=== PATIENT | male | born 1965 | race Caucasian/White ===

== ENCOUNTER → 2017-10-14 14:48 | Outpatient (CLI) | payer OTHER, SELFPAY ==
[2017-10-14 16:20] LABS: Absolute Lymphocyte Count 1.71 X10^3/ul (0.83-4.51); Absolute Neutrophil Count 3.5 X10^3/uL (2.0-7.7); Basophil# 0.03 X10^3/uL; Basophil% 0.5 % (0-1); Eosinophil# 0.17 X10^3/uL; Eosinophils% 2.7 % (0-5); Hematocrit 44.9 % (40-54); Hemoglobin 15.1 g/dl (13.0-16.5); Lymphocyte # 1.71 X10^3/ul (4.0); Lymphocyte % 27.2 % (19-41); Mean Corp Hgb Conc 33.6 g/gl (32-36); Mean Corpuscular Hgb 29.7 pg (27.0-32.0); Mean Corpuscular Volume 88.2 fL (80-94); Mean Platelet Vol. 9.8 fl (6.2-12.0); Monocyte# 0.83 X10^3/uL; Monocyte% 13.2 % (0-10); Neutrophil # 3.54 X10^3/uL (2.7-7.7); Neutrophil % 56.2 % (47-70); Platelet Count 320 K/mm3 (150-450); RBC Distribution Width CV 13.6 % (11.6-14.6); Red Blood Count 5.09 M/mm3 (4.6-6.2); White Blood Count 6.3 K/mm3 (4.4-11.0)
[2017-10-14 16:23] LABS: POSITIVE COUNT NO; POSITIVE DIFFERENTIAL NO; POSITIVE MORPHOLOGY NO
[2017-10-14 16:39] LABS: AST(SGOT) 21 U/L (15-37); Alanine Aminotransfer ALT/SGPT 26 U/L (16-61); Albumin, Serum 3.8 g/dL (3.2-5.0); Alkaline Phosphatase 98 U/L (45-117); Bilirubin, Direct 0.09 mg/dL (0.00-0.30); CRP < 2.90 mg/L (0.0-3.0); Creatinine, Serum 0.96 mg/dL (0.70-1.30); EST Glomerular Filtration Rate 87 mL/min (>60); Est Glom Filt Rate - Afr Amer 105 mL/min (>60); Globulin 3.3 g/dL (2.2-4.2); Protein, Total 7.1 g/dL (6.4-8.2)
[2017-10-14 16:54] LABS: Erythrocyte Sedimentation Rate 1 mm/hr (0-20)
== END ==
PROVIDERS: Family Provider Family Medicine; PCP Family Medicine; Visit Provider Internal Medicine Rheumatology
DX: L40.50 Arthropathic psoriasis, unspecified (principal); Z79.899 Other long term (current) drug therapy
CPT/HCPCS: 36415; 80076; 82565; 85025; 85652; 86140

== ENCOUNTER → 2017-10-28 13:16 | Outpatient (CLI) | payer OTHER, SELFPAY ==
--- NOTE | 2017-10-28 13:21 | RAD_ITS ---
STUDY: X-RAY - LEFT KNEE REASON FOR EXAM: Male, 52 years old. One year postop follow-up. Medial knee pain. TECHNIQUE: 4 view(s) of the knee. COMPARISON: 4 views of the left knee August 19, 2017. FINDINGS: Changes of medial knee hemiarthroplasty again noted. Metal prostheses overlying the medial femoral condyle and medial tibial plateau remain well seated, and in anatomic alignment. There is persistent spurring of the tibial spines. Normal visualized proximal fibula. Periarticular spurring at the base and lateral margin of the patella is unchanged. There is no demonstrated destructive osseous lesion or fracture. Normal medial femorotibial distance. Normal lateral femorotibial joint space. Stable mild narrowing of the lateral patellofemoral joint space. A few punctate calcific densities again project within the central femorotibial joint compartments on the condylar notch view. Normal visualized proximal tibiofibular articulation. There is a stable soft tissue prominence in the suprapatellar region suggesting a small volume joint effusion. The soft tissue structures are unremarkable. RAD/Knee 4 or More Views IMPRESSION: Stable x-ray examination of the knee, status post medial hemiarthroplasty. Electronically Signed: Emmanuel Peres MD at 11:25 EST , Service support ,
== END ==
PROVIDERS: Family Provider Family Medicine; PCP Family Medicine; Visit Provider Orthopaedic Surgery
DX: M17.12 Unilateral primary osteoarthritis, left knee (principal)
CPT/HCPCS: 73564

== ENCOUNTER 2017-11-21 14:00 | Outpatient (RCR) | payer OTHER, SELFPAY ==
--- NOTE | 2017-11-07 16:36 | HP.PTEVAL_ITS ---
Patient's Visit Information SIMONE BARLOW is a 52 year old M referred to Physical Therapy by DO ANABELLE Pinto with a diagnosis of Left Pes Anserine. Date of Evaluation: 11/07/17 Physical Therapist: Megan Johnson - Visit Plan Frequency: 2x /Week Duration: 2 Weeks Plan: Focus on eccentric strength- DN as modality of choice - Subjective Subjective: Patient reports that he has pain on the top of the knee sometimes but the main problem is on the medial side of the knee. Sharp pain and has to stop and can't bend his knee. If he walks a little and starts to try to bend it - it will work its way out. Walking down stairs or a ramp is the worst. It does it a couple of times day- but is random when it happens. Went and saw Dr. Maloney who did x-rays which still looked good- may need a bone scan if it doesn't get any better. Pain does radiate down almost of the ankle and up into the hip. This started around June- feels like it got worse then made an apt and it went away for a few weeks then it started again. Did not give him a cortisone injection. Sleep: wakes him up. When he goes to stretch his leg out while driving it stiffens up. Does have some swelling but its going down. Eases: walk it out. best: 09/14 Worst: 06/14. 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 Does have an ellip and leg press which helps. 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 - Objective Posture: good throughout. Gait: no deviation noted. Stairs: asc no Hr good technique- desc- no hr-poor control. SLS: 30 sec with increased sway. HR/TR: WNL. ROM: 0-125 degrees. Strength: Ankle: 5/5, Knee: 5/5, Hip: 5/5 Eccentric lowering poor control and increased knee sway. - Goals Goal 1:: Patient will be I with HEP and progression Goal Time Frame: 4-6 Weeks Goal 2:: Patient will demo a good eccentric single leg squat with 0/10 pain Goal Time Frame: 4-6 Weeks Goal 3:: Patient will report 0/10 pain for 1 week Goal Time Frame: 4-6 Weeks - Rehabilitation Potential Physical Therapy Diagnosis: Patient presents with hypmobility- he has decreased eccentric strength and pain Rehabilitation Potential: Good - Anticipated Interventions Patient/Client Instruction: Educate patient on: Benefits of Fitness Program For the Purpose of:: To increase tolerance to activity/condition/position Therapeutic Exercise to Include: Strength training, Balance training, Agility training, Body mechanics, Postural training, Flexibilty training, Gait and locomotor training Comment: Eccentric Strength For the Purpose of:: To improve muscle performance and motor function Manual Therapy Techniques to Include: Mobilization, Functional dry needling, Soft tissue mobilization For the Purpose of:: To improve nutrient delivery to tissue, To increase oxygenation perfusion Thank you for the opportunity to evaluate your patient. For Medicare and Medicare HMO plans, please review the plan of care and approve it. It will need to be FAXED BACK to us at [phone] for Medicare purposes. Please let me know if there are questions or concerns regarding this plan of care. Physician Signature: Date:
--- NOTE | 2017-11-21 14:29 | HP.PTREVAL_ITS ---
Nolberto Maloney DO, It has been my pleasure to treat SIMONE BARLOW over the last 4 visits for Left Pes Anserine. Please see the progress note below for an update on the physical therapy plan of care! Subjective: Pt. reports symptoms continue to improve. Pt. reports having increased lateral knee pain from kneeling a lot at work. Objective/Function: Pt. is progressing with controlled eccentric motion, but continues to have increased pain with increased flexion during loaded positions. Pt. has improvement with DN. Re assessment next visit. Plan Plan: Focus on eccentric strength- DN as modality of choice Goals Goal 1:: Patient will be I with HEP and progression Goal Time Frame: 4-6 Weeks Goal 2:: Patient will demo a good eccentric single leg squat with 0/10 pain Goal Time Frame: 4-6 Weeks Goal Progress: Progressing Goal 3:: Patient will report 0/10 pain for 1 week Goal Time Frame: 4-6 Weeks Anticipated Interventions Patient/Client Instruction: Educate patient on: Benefits of Fitness Program For the Purpose of:: To increase tolerance to activity/condition/position Therapeutic Exercise to Include: Strength training, Balance training, Agility training, Body mechanics, Postural training, Flexibilty training, Gait and locomotor training Comment: Eccentric Strength For the Purpose of:: To improve muscle performance and motor function Manual Therapy Techniques to Include: Mobilization, Functional dry needling, Soft tissue mobilization For the Purpose of:: To improve nutrient delivery to tissue, To increase oxygenation perfusion Please do not hesitate to contact me at [phone] by phone or Fax: if you have questions or concerns regarding this new plan of care! Sincerely, Megan Johnson
--- NOTE | 2018-01-23 13:54 | HP.PT.NRP ---
HP - Discharge Summary (1) - Patient Information SIMONE BARLOW was seen in my office for initial evaluation on 11/07/17. The following Plan of Care was established for this patient: Initial Frequency: 2x /Week Initial Duration: 2 Weeks - Anticipated Interventions Patient/Client Instruction: Educate patient on: Benefits of Fitness Program For the Purpose of:: To increase tolerance to activity/condition/position Therapeutic Exercise to Include: Strength training, Balance training, Agility training, Body mechanics, Postural training, Flexibilty training, Gait and locomotor training For the Purpose of:: To improve muscle performance and motor function Manual Therapy Techniques to Include: Mobilization, Functional dry needling, Soft tissue mobilization For the Purpose of:: To improve nutrient delivery to tissue, To increase oxygenation perfusion This patient was last seen in our office . Pertinent comments regarding their Physical therapy will appear below: Patient has not returned for 60 days and is appropriate for discharge. Return to MD for further evaluation as needed. At this point I will be discontinuing this patient from physical therapy. I would be happy to see this patient again in the future if found appropriate by the physician. Thank you! Megan Johnson
== END 2017-11-21 19:00 | disposition home or self-care (01) ==
LOC: PT 14:00
PROVIDERS: Family Provider Family Medicine; PCP Family Medicine; Visit Provider Orthopaedic Surgery
DX: M70.52 Other bursitis of knee, left knee (principal); M70.51 Other bursitis of knee, right knee
CPT/HCPCS: 97110; 97161

== ENCOUNTER → 2017-12-29 21:57 | Outpatient (CLI) | payer OTHER, SELFPAY | PROVIDERS: Family Provider Family Medicine; PCP Family Medicine; Visit Provider Family Medicine | DX: G47.33 Obstructive sleep apnea (adult) (pediatric) (principal) | CPT/HCPCS: 95810 ==

== ENCOUNTER → 2018-01-19 16:07 | Outpatient (CLI) | payer OTHER, SELFPAY ==
[2018-01-19 17:35] LABS: Hematocrit 46.1 % (40-54); Hemoglobin 15.5 g/dl (13.0-16.5); Mean Corp Hgb Conc 33.6 g/gl (32-36); Mean Corpuscular Hgb 29.4 pg (27.0-32.0); Mean Corpuscular Volume 87.3 fL (80-94); Mean Platelet Vol. 9.5 fl (6.2-12.0); Platelet Count 338 K/mm3 (150-450); RBC Distribution Width CV 13.2 % (11.6-14.6); RBC Distribution Width SD 41.9 fl (35.1-43.9); Red Blood Count 5.28 M/mm3 (4.6-6.2); White Blood Count 6.4 K/mm3 (4.4-11.0)
[2018-01-19 17:36] LABS: Absolute Lymphocyte Count 2.06 X10^3/ul (0.83-4.51); Absolute Neutrophil Count 3.6 X10^3/uL (2.0-7.7); Basophil# 0.01 X10^3/uL; Basophil% 0.2 % (0-1); Eosinophil# 0.12 X10^3/uL; Lymphocyte # 2.06 X10^3/ul (4.0); Lymphocyte % 32.1 % (19-41); Monocyte# 0.66 X10^3/uL; Monocyte% 10.3 % (0-10); Neutrophil # 3.56 X10^3/uL (2.7-7.7); Neutrophil % 55.3 % (47-70); POSITIVE COUNT NO; POSITIVE DIFFERENTIAL NO; POSITIVE MORPHOLOGY NO
[2018-01-19 17:47] LABS: Erythrocyte Sedimentation Rate 7 mm/hr (0-20)
[2018-01-19 18:47] LABS: CRP < 2.90 mg/L (0.0-3.0)
== END ==
PROVIDERS: Family Provider Family Medicine; PCP Family Medicine; Visit Provider Physician Assistant
DX: Z96.652 Presence of left artificial knee joint (principal)
CPT/HCPCS: 36415; 85025; 85652; 86140

== ENCOUNTER → 2018-03-01 20:00 | Outpatient (CLI) | payer OTHER, SELFPAY | PROVIDERS: Family Provider Family Medicine; PCP Family Medicine; Visit Provider Nurse Practitioner Acute Care | DX: G47.33 Obstructive sleep apnea (adult) (pediatric) (principal) | CPT/HCPCS: 95811 ==

== ENCOUNTER → 2018-03-13 16:12 | Outpatient (CLI) | payer OTHER, SELFPAY ==
[2018-03-13 18:03] LABS: Anion Gap 9 (5-15); BUN 17 mg/dL (7-18); BUN/Creat Ratio 16.3 RATIO (10-20); Calcium,Total 8.8 mg/dL (8.5-10.1); Chloride 104 mmol/L (98-107); Cholesterol 190 mg/dL (200); Creatinine, Serum 1.04 mg/dL (0.70-1.30); EST Glomerular Filtration Rate 79 mL/min (>60); Est Glom Filt Rate - Afr Amer 96 mL/min (>60); Glucose 94 mg/dL (74-106); High Density Lipoprotein 48 mg/dL; PSA,Total - Annual Screen 1.45 ng/mL (0.00-4.00); Potassium 4.3 mmol/L (3.5-5.1); Sodium Level 143 mmol/L (136-145); Thyroid Stim Hormone (TSH) 1.03 uIU/mL (0.358-3.74); Triglycerides 59 mg/dL; Very Low Density Lipoprotein 12 mg/dL (5-40)
[2018-03-13 18:06] LABS: Vitamin D,25 Hydroxy 27.9 ng/mL (29.95-100.01)
== END ==
PROVIDERS: Visit Provider Family Medicine
DX: Z02.9 Encounter for administrative examinations, unspecified (principal); E03.9 Hypothyroidism, unspecified
CPT/HCPCS: 36415; 80048; 80061; 82306; 84153; 84443; G0103

== ENCOUNTER 2018-03-15 07:14 | Day surgery (SDC) | payer OTHER, SELFPAY ==
[2018-03-15] VITALS (7 sets, daily range): BP systolic 93–108; BP diastolic 62–80; PULSE 67–93; RESP 16–18; TEMP 35.9–36.4; O2SAT 96–100; BMI 26.7
--- NOTE | 2018-03-15 | COLBX_PTH ---
PATIENT: SIMONE BARLOW LOC: EN U#:[id number] AGE/SX: 52/M ROOM: RE03/15/[address]: Dr. Clarice Gibbs MD : [id number] BED: DIS: 03/15/2018 SPEC #: [id number] RECD: 03/15/18 13:54 STATUS: KIARA CLAIRE #: [id number] TIA: 03/15/18 00:[address]: Clarice Gibbs DEPT: SURGICAL PATHOLOGY RECD BY: Yong Lyons ENTERED: 03/15/18 13:54 SP TYPE: COLON BX OTHR DR: Dr. Ash Mcpherson MD Tissues: A - Transverse colon B - Descending colon Procedures: Surgery Specimen Level IV HEADER OPERATION: Colonoscopy (MAC) PRE-OP DIAGNOSIS: Screening, family history colon cancer TISSUE SUBMITTED: A ? Biopsy polyp transverse colon, B ? Biopsy polyp descending colon MICROSCOPIC DIAGNOSIS A. Polyp transverse colon, biopsy: Fragments of hyperplastic polyp. B. Polyp descending colon, biopsy: Fragment of colonic mucosa, no pathologic diagnosis. ECHO:charisma 03/16/18 MICROSCOPIC DESCRIPTION Slides are reviewed. GROSS DESCRIPTION A - Received in fixative is one container labeled with the patient's name and designated transverse colon polyp biopsy. The specimen consists of multiple irregular fragments of light romano soft tissue that in aggregate measure 0.8 x 0.3 x 0.1 cm. The specimen is totally submitted in one cassette. B - Received in fixative is one container labeled with the patient's name and designated descending colon polyp biopsy. The specimen consists of one irregular fragment of light romano soft tissue that measures 0.3 x 0.3 x 0.1 cm. The specimen is totally submitted in one cassette. / ECHO:charisma 03/15/18 TC:1 CPT: 07784 x2
--- NOTE | 2018-03-15 11:03 | OP.PCM_ITS ---
Report of Operation Date of Procedure: 03/15/18 Pre-Operative Diagnosis: Family history of colon cancer-father, screening for colon cancer Post-Operative Diagnosis: Small sessile transverse and descending colon polyps, internal hemorrhoids?grade 1 Surgery/Procedure Performed:: Colonoscopy with biopsy Type of Anesthesia:: MAC Anesthesiologist: Elin Zheng Specimen's removed: 1. Transverse colon polyp, 2. Descending colon polyp Estimated Blood Loss (mL): Minimal Description of Procedure: Procedure: Colonoscopy After reviewing the risks benefits, the patient was deemed in satisfactory condition to undergo procedure. After obtaining informed consent, the scope was passed under direct visualization. Throughout the procedure, the patient's blood pressure pulse and position saturations were monitored continuously anesthesia. The colonoscope was introduced through the anus and advanced to the cecum, identified by the appendiceal orifice, IC valve and transillumination. The colonoscopy was performed without difficulty. The patient tolerated procedure well. Quality of bowel prep was good. Findings: The perianal and digital rectal exam revealed internal hemorrhoids. Small sessile transverse colon and descending colon polyps were removed with cold forceps biopsies. Otherwise the colon (entire examined portion) appeared normal. Retroflexed view of the distal rectum and anal verge showed internal hemorrhoids grade 1 Impression: 1. Small sessile transverse colon and descending colon polyps. Removed completely and sent to pathology 2. Internal hemorrhoid-grade 1 Recommendations: Await biopsies Repeat colonoscopy in 3-5 years for screening purposes depending on biopsy results and due to new family history of colon cancer in his father - Complications none
== END 2018-03-15 10:33 | disposition home or self-care (01) ==
LOC: EN 07:15 → AC 07:16
PROVIDERS: Family Provider Family Medicine; PCP Family Medicine; Visit Provider Surgery
PROC: 0DJD8ZZ Inspection of Lower Intestinal Tract, Via Natural or Artificial Opening Endoscopic (ICD-10-PCS; CPT 45378; principal; 2018-03-15 09:25)
DX: Z12.11 Encounter for screening for malignant neoplasm of colon (principal); Z80.0 Family history of malignant neoplasm of digestive organs; K64.8 Other hemorrhoids; K63.5 Polyp of colon; L40.50 Arthropathic psoriasis, unspecified; E03.9 Hypothyroidism, unspecified; F32.9 Major depressive disorder, single episode, unspecified; F41.9 Anxiety disorder, unspecified
CPT/HCPCS: 45380; 88305; J7120

== ENCOUNTER 2018-05-16 14:24 | Emergency (ER) | payer OTHER, SELFPAY ==
[2018-05-16 14:26] VITALS: BP 135/74; PULSE 135; RESP 16; TEMP 37.2; O2SAT 98; BMI 28.3
--- NOTE | 2018-05-16 14:33 | RAD_ITS ---
STUDY: X-RAY - RIGHT HAND REASON FOR EXAM: Male, 53 years old. Pain. No history of trauma. TECHNIQUE: 3 view(s) of the hand. COMPARISON: None. FINDINGS: There is joint space narrowing of the radiocarpal articulation consistent with degenerative arthrosis. Degenerative arthrosis of the distal radial ulnar joint. Normal visualized carpal bones. Normal carpal articulations Normal carpometacarpal articulation of the thumb. Normal second through fifth carpometacarpal joints. Normal metacarpi. Normal metacarpophalangeal joint of the thumb. Normal interphalangeal joint of the thumb. Normal proximal and distal phalanges of the thumb. Normal metacarpophalangeal joints of the second through fifth fingers. Normal proximal and distal interphalangeal joints of the second through fifth fingers. 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 The soft tissue structures are unremarkable. 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 Degenerative changes as described. Electronically Signed: Justin Barreto MD at 15:16 EDT Tel [phone], Service support ,
[2018-05-16 16:12] VITALS: BP 130/97; PULSE 80; RESP 16; O2SAT 98
--- NOTE | 2018-05-16 16:28 | ED.DCSUM_ITS ---
- ER Visit Summary Date of Service: 05/16/18 Chief Complaint: Right wrist pain History of Present Illness: The patient is a 53 M who noted right wrist pain starting last evening. Pain worsened today at work with repetitive motion. He is right-hand dominant. He denies paresthesias. Patient has a history of psoriatic arthritis and thought that might be flaring. He is currently on Humira. He does not have a history of gout. There is been no known injury. Physical Examination: Vital signs in triage significant for heart rate of 135. Patient sitting upright in bed no acute distress. Head neck examination unremarkable. Heart is regular. Lung sounds are clear. Right upper extremity examination reveals mild diffuse tenderness throughout the right wrist. There is no erythema or significant edema. He has normal cap refill and sensation. He does have increased pain with flexion and extension. Test Results: Right hand x-rays were obtained per nursing protocol. He is status post amputation of the fourth middle and distal phalanges from prior injury. Degenerative changes are noted. Emergency Department Course and Treatment: This time I believe the patient either has a sprain versus tendinitis. He will be treated with a Velcro wrist splint and given a course of prednisone. He is to return for worsening symptoms , erythema, increased edema etc. He will follow with his primary care physician. Treatment Plan: [] Disposition: Discharge Impression: Right wrist sprain This note was generated with [employer] dictation software. It may contain incorrect words, spelling, and punctuation that were not noted in review of the chart prior to signing ED Disposition - Plan for ED Patient: Chief Complaint: Upper Extremity Injury Referrals: Ash Mcpherson MD [Primary Care Provider] -
--- NOTE | 2018-05-16 16:28 | ED.DEP ---
ED Disposition - Plan for ED Patient: Disposition: Home or Assisted Living Chief Complaint: Upper Extremity Injury Instructions: ED Sprain Wrist Prescriptions: Prednisone 10 mg PO UD #33 tablet Referrals: Ash Mcpherson MD [Primary Care Provider] - 5-7 Days
[2018-05-16] MEDS: predniSONE 20 MG Tablet 60 MG PO (16:52)
== END 2018-05-16 16:56 | disposition home or self-care (01) ==
PROVIDERS: Emergency Provider Emergency Medicine; Family Provider Family Medicine; PCP Family Medicine
DX: S63.501A Unspecified sprain of right wrist, initial encounter (principal); X50.3XXA Overexertion from repetitive movements, initial encounter; Y93.9 Activity, unspecified; Y92.89 Other specified places as the place of occurrence of the external cause; Y99.0 Civilian activity done for income or pay; L40.50 Arthropathic psoriasis, unspecified; G47.33 Obstructive sleep apnea (adult) (pediatric); K21.9 Gastro-esophageal reflux disease without esophagitis
CPT/HCPCS: 73130; 99283

== ENCOUNTER → 2018-05-18 13:55 | Outpatient (CLI) | payer OTHER, SELFPAY ==
[2018-05-24 11:25] LABS: Cotinine Screen Blood None Detected (.); Nicotine Blood None Detected (.)
== END ==
PROVIDERS: Family Provider Family Medicine; PCP Family Medicine; Visit Provider Family Medicine
DX: Z01.89 Encounter for other specified special examinations (principal)
CPT/HCPCS: 36415; 80323

== ENCOUNTER → 2019-01-12 16:52 | Outpatient (CLI) | payer OTHER, SELFPAY ==
[2018-08-07 14:17] VITALS: BMI 27.2
[2019-01-12 17:27] LABS: Absolute Lymphocyte Count 2.21 X10^3/ul (0.83-4.51); Basophil# 0.03 X10^3/uL; Basophil% 0.5 % (0-1); Eosinophil# 0.15 X10^3/uL; Eosinophils% 2.5 % (0-5); Hematocrit 44.2 % (40-54); Hemoglobin 14.9 g/dl (13.0-16.5); Lymphocyte # 2.21 X10^3/ul (4.0); Lymphocyte % 36.6 % (19-41); Mean Corp Hgb Conc 33.7 g/gl (32-36); Mean Corpuscular Hgb 29.7 pg (27.0-32.0); Mean Corpuscular Volume 88.2 fL (80-94); Mean Platelet Vol. 9.1 fl (6.2-12.0); Monocyte# 0.69 X10^3/uL; Monocyte% 11.4 % (0-10); Neutrophil # 2.95 X10^3/uL (2.7-7.7); Neutrophil % 48.8 % (47-70); Platelet Count 296 K/mm3 (150-450); RBC Distribution Width CV 13.3 % (11.6-14.6); RBC Distribution Width SD 42.7 fl (35.1-43.9); Red Blood Count 5.01 M/mm3 (4.6-6.2)
[2019-01-12 17:29] LABS: POSITIVE COUNT NO; POSITIVE DIFFERENTIAL NO; POSITIVE MORPHOLOGY NO
[2019-01-12 18:24] LABS: Vitamin D,25 Hydroxy 28.6 ng/mL (29.95-100.01)
[2019-01-12 18:28] LABS: Anion Gap 7 (5-15); BUN 15 mg/dL (7-18); BUN/Creat Ratio 16.3 RATIO (10-20); Calcium,Total 8.7 mg/dL (8.5-10.1); Chloride 107 mmol/L (98-107); Creatinine, Serum 0.92 mg/dL (0.70-1.30); EST Glomerular Filtration Rate 91 mL/min (>60); Est Glom Filt Rate - Afr Amer 110 mL/min (>60); Free T3 2.8 pg/mL (2.18-3.98); Glucose 87 mg/dL (74-106); Potassium 3.8 mmol/L (3.5-5.1); Sodium Level 142 mmol/L (136-145); T4 Total, Thyroxin 8.7 ug/dL (4.5-12.1); Thyroid Stim Hormone (TSH) 1.75 uIU/mL (0.358-3.74)
== END ==
PROVIDERS: Family Provider Family Medicine; PCP Family Medicine; Referring Provider Family Medicine; Visit Provider Family Medicine
DX: E03.9 Hypothyroidism, unspecified (principal); E55.9 Vitamin D deficiency, unspecified; L40.50 Arthropathic psoriasis, unspecified
CPT/HCPCS: 36415; 80048; 82306; 84436; 84443; 84481; 85025

== ENCOUNTER → 2019-02-14 10:47 | Outpatient (CLI) | payer OTHER, SELFPAY ==
[2018-08-07 14:17] VITALS: BMI 27.2
== END ==
PROVIDERS: Family Provider Family Medicine; PCP Family Medicine; Referring Provider Family Medicine; Visit Provider Family Medicine
DX: R19.7 Diarrhea, unspecified (principal)
CPT/HCPCS: 87493; 87506

== ENCOUNTER → 2019-07-25 16:07 | Outpatient (CLI) | payer OTHER, SELFPAY ==
[2018-08-07 14:17] VITALS: BMI 27.2
[2019-07-25 18:05] LABS: Thyroid Stim Hormone (TSH) 2.15 uIU/mL (0.358-3.74)
== END ==
PROVIDERS: Family Provider Family Medicine; PCP Family Medicine; Referring Provider Family Medicine; Visit Provider Family Medicine
DX: E03.9 Hypothyroidism, unspecified (principal)
CPT/HCPCS: 36415; 84443

== ENCOUNTER → 2019-10-25 08:49 | Outpatient (CLI) | payer OTHER, SELFPAY ==
[2018-08-07 14:17] VITALS: BMI 27.2
--- NOTE | 2019-10-25 15:43 | PFTCOMP_ITS ---
COMPLETE PULMONARY FUNCTION TEST INTERPRETATION Brief HPI: Patient is a 54 year old male, currently under the care of Dr. Mcpherson, who presents to [facility] for complete pulmonary function tests secondary to diagnosis of chronic cough. Respiratory therapist reports good effort and reproducible results. Interpretation: Forced expiration spirometry shows no large airways obstructive ventilatory defect with an FEV1 of 112% predicted. There is no significant bronchodilator re sponse by strict ATS criteria. Spirograms are of good quality and plateau normally. The respiratory flow volume loop shows a normal pattern. Lung volumes by body plethysmography show a normal total lung capacity at 7.08 L105, % predicted. All other lung volumes are within normal limits. Diffusion capacity by carbon monoxide is normal at 121% predicted. The airway resistance is slightly elevated. No previous pulmonary function tests were available for review. Impression: These pulmonary function tests are within normal limits. Consider bronchoprovocation study if asthma is suspected
== END ==
PROVIDERS: PCP Family Medicine; Referring Provider Family Medicine; Visit Provider Family Medicine
DX: R05 Cough (principal)
CPT/HCPCS: 94060; 94726; 94729

== ENCOUNTER → 2019-12-13 16:11 | Outpatient (CLI) | payer SELFPAY ==
[2018-08-07 14:17] VITALS: BMI 27.2
[2019-12-13 16:33] LABS: Absolute Lymphocyte Count 2.28 X10^3/uL (0.83-4.51); Absolute Neutrophil Count 4.2 X10^3/uL (2.0-7.7); Basophil# 0.05 X10^3/uL; Basophil% 0.7 % (0-1); Eosinophil# 0.18 X10^3/uL; Eosinophils% 2.4 % (0-5); Hematocrit 47.3 % (40-54); Hemoglobin 15.4 g/dL (13.0-16.5); Lymphocyte # 2.28 X10^3/ul (4.0); Lymphocyte % 30.9 % (19-41); Mean Corp Hgb Conc 32.6 g/dL (32-36); Mean Corpuscular Hgb 29.1 pg (27.0-32.0); Mean Corpuscular Volume 89.2 fL (80-94); Mean Platelet Vol. 9.2 fl (6.2-12.0); Monocyte# 0.65 X10^3/uL; Monocyte% 8.8 % (0-10); NRBC Flagged by Analyzer 0 % (0-5); Neutrophil # 4.18 X10^3/uL (2.7-7.7); Neutrophil % 56.8 % (47-70); Platelet Count 349 K/mm3 (150-450); RBC Distribution Width CV 12.8 % (11.6-14.6); RBC Distribution Width SD 41.7 fl (35.1-43.9); White Blood Count 7.4 K/mm3 (4.4-11.0)
[2019-12-13 16:57] LABS: Erythrocyte Sedimentation Rate 4 mm/hr (0-20)
[2019-12-13 17:24] LABS: AST(SGOT) 23 U/L (15-37); Alanine Aminotransfer ALT/SGPT 24 U/L (16-61); Albumin, Serum 4.1 g/dL (3.2-5.0); Alkaline Phosphatase 111 U/L (45-117); Bilirubin, Direct 0.08 mg/dL (0.00-0.30); CRP < 2.90 mg/L (0.0-3.0); Creatinine, Serum 1.07 mg/dL (0.70-1.30); EST Glomerular Filtration Rate 76 mL/min (>60); Est Glom Filt Rate - Afr Amer 92 mL/min (>60); Globulin 3.4 g/dL (2.2-4.2); Protein, Total 7.5 g/dL (6.4-8.2)
== END ==
PROVIDERS: PCP Family Medicine; Referring Provider Internal Medicine Rheumatology; Visit Provider Internal Medicine Rheumatology
DX: L40.50 Arthropathic psoriasis, unspecified (principal); Z79.899 Other long term (current) drug therapy
CPT/HCPCS: 36415; 80076; 82565; 85025; 85652; 86140

== ENCOUNTER → 2020-01-23 16:43 | Outpatient (CLI) | payer OTHER, SELFPAY ==
[2018-08-07 14:17] VITALS: BMI 27.2
[2020-01-23 18:51] LABS: Free T3 2.4 pg/mL (2.18-3.98); T4 Total, Thyroxin 9.3 ug/dL (4.5-12.1); Thyroid Stim Hormone (TSH) 1.62 uIU/mL (0.358-3.74)
== END ==
PROVIDERS: PCP Family Medicine; Referring Provider Family Medicine; Visit Provider Family Medicine
DX: E03.9 Hypothyroidism, unspecified (principal); N40.0 Benign prostatic hyperplasia without lower urinary tract symptoms
CPT/HCPCS: 36415; 84153; 84403; 84436; 84443; 84481

== ENCOUNTER → 2020-03-19 14:01 | Outpatient (CLI) | payer OTHER, SELFPAY ==
[2018-08-07 14:17] VITALS: BMI 27.2
--- NOTE | 2020-03-19 14:04 | RAD_ITS ---
STUDY: X-RAY - LEFT WRIST REASON FOR EXAM: Mild pain when extending the wrist, no specific injury. TECHNIQUE: 3 view(s) of the wrist were obtained. COMPARISON: None. FINDINGS: Normal visualized distal radius and ulna. Normal radiocarpal articulation. Normal distal radioulnar articulation. Normal carpal bones. Normal carpal articulations. There is mild joint space narrowing of the carpometacarpal articulation of the thumb. Normal second through fifth carpometacarpal articulations. There is an osteophyte at the radial aspect of the fifth metacarpal head. There is joint space narrowing of the first metacarpophalangeal joint. The soft tissue structures are unremarkable. 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 Electronically Signed: Miah Childs MD at 14:34 EDT Tel , Service support ,
--- NOTE | 2020-03-19 14:04 | RAD_ITS ---
STUDY: X-RAY CHEST REASON FOR EXAM: Male, 54 years old. Substernal chest pain, heartburn TECHNIQUE: PA and lateral views of the chest. COMPARISON: None. FINDINGS: The lungs are clear and expanded. There is no demonstrated pleural abnormality. Normal size heart. Normal mediastinum and shabbir. Normal visualized pulmonary arteries. Normal visualized aortic arch and descending thoracic aorta. Normal visualized thoracic spine. Normal visualized ribs, clavicles, and shoulders. There is no demonstrated abnormality of the visualized soft tissue structures of the upper abdomen. RAD/Chest PA and Lateral IMPRESSION: No acute pulmonary process Electronically Signed: Emmanuel Rothman MD at 14:21 EDT , Service support ,
--- NOTE | 2020-03-19 14:05 | RAD_ITS ---
STUDY: X-RAY - PELVIS REASON FOR EXAM: Male, 54 years old. ARTHRITIS, MILD PAIN TECHNIQUE: One view of the pelvis was obtained. COMPARISON: None. FINDINGS: There is a non-specific bowel gas pattern. Normal visualized soft tissue structures. Normal bilateral iliac wings, sacroiliac joints and visualized sacrum. Normal visualized bilateral superior and inferior pubic rami. Normal pubic symphysis. Normal ischial tuberosities. Normal visualized right femoral head. Normal right acetabulum. Normal right hip joint. Normal visualized left femoral head. Normal left acetabulum. Normal left hip joint. RAD/Pelvis 1 or 2 Views IMPRESSION: Normal x-ray examination of the pelvis. Electronically Signed: Emmanuel Rothman MD at 14:22 EDT , Service support ,
[2020-03-19 16:21] LABS: Absolute Lymphocyte Count 1.73 X10^3/uL (0.83-4.51); Absolute Neutrophil Count 3.8 X10^3/uL (2.0-7.7); Basophil# 0.04 X10^3/uL; Basophil% 0.6 % (0-1); Eosinophil# 0.19 X10^3/uL; Hematocrit 47.8 % (40-54); Hemoglobin 15.4 g/dL (13.0-16.5); Lymphocyte # 1.73 X10^3/ul (4.0); Lymphocyte % 27.4 % (19-41); Mean Corp Hgb Conc 32.2 g/dL (32-36); Mean Corpuscular Hgb 29.4 pg (27.0-32.0); Mean Corpuscular Volume 91.2 fL (80-94); Mean Platelet Vol. 9.6 fl (6.2-12.0); Monocyte# 0.54 X10^3/uL; Monocyte% 8.5 % (0-10); NRBC Flagged by Analyzer 0 % (0-5); Neutrophil % 60.2 % (47-70); Platelet Count 333 K/mm3 (150-450); RBC Distribution Width CV 13.2 % (11.6-14.6); RBC Distribution Width SD 44.1 fl (35.1-43.9); Red Blood Count 5.24 M/mm3 (4.6-6.2); White Blood Count 6.3 K/mm3 (4.4-11.0)
[2020-03-19 16:37] LABS: ALB/GLOB Ratio 1.1 RATIO (0.9-2.4); AST(SGOT) 18 U/L (15-37); Alanine Aminotransfer ALT/SGPT 24 U/L (16-61); Albumin, Serum 3.9 g/dL (3.2-5.0); Alkaline Phosphatase 97 U/L (45-117); Anion Gap 5 (5-15); BUN 16 mg/dL (7-18); BUN/Creat Ratio 15.2 RATIO (10-20); Calcium,Total 8.5 mg/dL (8.5-10.1); Chloride 104 mmol/L (98-107); Creatinine, Serum 1.05 mg/dL (0.70-1.30); EST Glomerular Filtration Rate 78 mL/min (>60); Est Glom Filt Rate - Afr Amer 94 mL/min (>60); Globulin 3.5 g/dL (2.2-4.2); Glucose 87 mg/dL (74-106); Potassium 3.8 mmol/L (3.5-5.1); Protein, Total 7.4 g/dL (6.4-8.2); Rheumatoid Factor < 10.0 IU/mL (<15); Sodium Level 139 mmol/L (136-145)
[2020-03-20 10:28] LABS: Hepatitis B Surface Antibody Non-Reactive; Hepatitis B Surface Antigen Non-Reactive (Nonreactive); Hepatitis C Antibody Non-Reactive (Nonreactive)
[2020-03-21 14:21] LABS: ANTINUCLEAR ANTIBODIES DIRECT Negative (Negative)
[2020-03-22 03:37] LABS: QNTFERON TB Mitogen Value > 10.00 IU/mL (.); QNTFERON TB Nil Value 0.06 IU/mL (.); QNTFERON TB1+ Ag Value 0.06 IU/mL (.); QNTFERON TB2+ Ag Value 0.04 IU/mL (.)
[2020-03-22 12:28] LABS: CCP IgG Antibodies 6 units (0-19); Hepatitis B Core AB IgM Negative (Negative); QNTIFERON TB Positive Criteria Negative (Negative)
== END ==
PROVIDERS: PCP Family Medicine; Referring Provider Internal Medicine Rheumatology; Visit Provider Internal Medicine Rheumatology
DX: L40.59 Other psoriatic arthropathy (principal); Z79.899 Other long term (current) drug therapy; L40.8 Other psoriasis; K21.9 Gastro-esophageal reflux disease without esophagitis; L80 Vitiligo; E03.9 Hypothyroidism, unspecified; F41.9 Anxiety disorder, unspecified; F32.9 Major depressive disorder, single episode, unspecified; G47.33 Obstructive sleep apnea (adult) (pediatric)
CPT/HCPCS: 36415; 71046; 72170; 73110; 80053; 85025; 86038; 86200; 86431; 86480; 86705; 86706; 86803; 87340

== ENCOUNTER → 2020-09-01 15:13 | Outpatient (CLI) | payer OTHER, SELFPAY ==
[2020-04-24 06:48] VITALS: BMI 27.2
[2020-09-01 16:33] LABS: Absolute Lymphocyte Count 2.43 X10^3/uL (0.83-4.51); Basophil# 0.04 X10^3/uL; Basophil% 0.6 % (0-1); Eosinophil# 0.16 X10^3/uL; Eosinophils% 2.6 % (0-5); Hematocrit 46.2 % (40-54); Hemoglobin 15.1 g/dL (13.0-16.5); Lymphocyte # 2.43 X10^3/ul (4.0); Lymphocyte % 38.8 % (19-41); Mean Corp Hgb Conc 32.7 g/dL (32-36); Mean Corpuscular Hgb 29.4 pg (27.0-32.0); Mean Corpuscular Volume 90.1 fL (80-94); Mean Platelet Vol. 9.5 fl (6.2-12.0); Monocyte# 0.61 X10^3/uL; Monocyte% 9.7 % (0-10); NRBC Flagged by Analyzer 0 % (0-5); Neutrophil % 47.8 % (47-70); Platelet Count 339 K/mm3 (150-450); Red Blood Count 5.13 M/mm3 (4.6-6.2); White Blood Count 6.3 K/mm3 (4.4-11.0)
[2020-09-01 16:55] LABS: ALB/GLOB Ratio 1.1 RATIO (0.9-2.4); AST(SGOT) 21 U/L (15-37); Alanine Aminotransfer ALT/SGPT 26 U/L (16-61); Albumin, Serum 3.8 g/dL (3.2-5.0); Alkaline Phosphatase 99 U/L (45-117); Anion Gap 4 (5-15); BUN 15 mg/dL (7-18); BUN/Creat Ratio 15.2 RATIO (10-20); Calcium,Total 8.5 mg/dL (8.5-10.1); Chloride 106 mmol/L (98-107); Creatinine, Serum 0.98 mg/dL (0.70-1.30); EST Glomerular Filtration Rate 84 mL/min (>60); Est Glom Filt Rate - Afr Amer 101 mL/min (>60); Globulin 3.4 g/dL (2.2-4.2); Glucose 82 mg/dL (74-106); Potassium 3.7 mmol/L (3.5-5.1); Protein, Total 7.2 g/dL (6.4-8.2); Sodium Level 141 mmol/L (136-145)
== END ==
PROVIDERS: PCP Family Medicine; Visit Provider Internal Medicine Rheumatology
DX: L40.59 Other psoriatic arthropathy (principal); Z79.899 Other long term (current) drug therapy; L40.8 Other psoriasis; K21.9 Gastro-esophageal reflux disease without esophagitis; L80 Vitiligo; E03.9 Hypothyroidism, unspecified; F32.9 Major depressive disorder, single episode, unspecified; G47.33 Obstructive sleep apnea (adult) (pediatric)
CPT/HCPCS: 36415; 80053; 85025

== ENCOUNTER 2020-09-15 16:00 | Emergency (ER) | payer OTHER, SELFPAY ==
[2020-04-24 06:48] VITALS: BMI 27.2
[2020-09-15 16:00] VITALS: BP 146/88; PULSE 81; RESP 16; TEMP 36.1; O2SAT 99; BMI 27.2
--- NOTE | 2020-09-15 16:30 | EKG12_ITS ---
Test Reason : SOB Blood Pressure : / mmHG Vent. Rate : 074 BPM Atrial Rate : 074 BPM P-R Int : 150 ms QRS Dur : 092 ms QT Int : 386 ms P-R-T Axes : 042 002 021 degrees QTc Int : 428 ms Normal sinus rhythm with sinus arrhythmia Normal ECG Confirmed by GALEN REHMAN, DARLING ([id number]), publication editor EVELYN MORRIS ([id number]) on 09/18/2020 11:23:50 AM Referred By: LORENE Confirmed By:DARLING AARON MD
--- NOTE | 2020-09-15 16:31 | ED.DCSUM_ITS ---
- ER Visit Summary Date of Service: 09/15/20 Chief Complaint: Chest pain History of Present Illness: The patient is a 55 M presenting with intermittent chest pain. He states this has been ongoing for the past several days and has been intermittent. He does not attribute it to exertion. He has had shortness of breath, cough, diarrhea. He has had myalgias. He denies fever. He states multiple family members have tested positive for Covid. He tested negative but was tested on the day that his symptoms started. He has been treated as a presumed positive Covid. He lost his sense of smell yesterday. Denies PE/DVT risk factors. He is not a smoker. Physical Examination: Vitals are stable. Patient is afebrile. Alert no acute distress. HEENT exam is unremarkable. Neck is supple. Lungs are clear and equal bilaterally. Heart is regular rate and rhythm. Abdomen is soft nontender nondistended. Extremities are unremarkable. Skin is warm and dry. No focal neurologic deficit. Remainder of exam is unremarkable. Emergency Department Course and Treatment: Patient was given aspirin on arrival. Chest x-ray read by myself and radiology shows no acute process. EKG is sinus rhythm with no acute ischemic changes. CBC, chemistries unremarkable. Troponin is negative. Delta troponin negative. CTA chest shows normal CTA chest examination, without a demonstrated pulmonary embolism or arterial dissection. Ambulatory pulse ox is 98% on room air. Patient is advised to follow-up with his primary care physician. Advised return to ED for worsening complaints. Disposition: Discharge home Impression: Covid 19, atypical chest pain This note was generated with [employer] dictation software. It may contain incorrect words, spelling, and punctuation that were not noted in review of the chart prior to signing ED Disposition - Plan for ED Patient: Instructions: Coronavirus Disease 2019 (COVID-19): Overview Referrals: Ash Mcpherson MD [Primary Care Provider] -
[2020-09-15] MEDS: Aspirin 81 MG TAB.CHEW 324 MG PO (16:37)
[2020-09-15 16:44] VITALS: O2SAT 97
--- NOTE | 2020-09-15 16:45 | RAD_ITS ---
STUDY: X-RAY CHEST REASON FOR EXAM: Male, 55 years old. COUGH/SOB/LOSS OF SMELL THAT STARTED 09/09. COVID TEST NEGATIVE HOWEVER BEING and quot;TREATED POSITIVE and quot; DUE TO POSITIVE FAMILY MEMBER IN SAME HOUSEHOLD. COMPLAINS OF INTERMITTENT CHEST PAIN. TECHNIQUE: Single AP portable view of the chest. COMPARISON: 03/19/2020 FINDINGS: The lungs are clear and expanded. There is no demonstrated pleural abnormality. Normal size heart. Normal mediastinum and shabbir. Normal visualized pulmonary arteries. Normal visualized aortic arch and descending thoracic aorta. Normal visualized thoracic spine. Normal visualized ribs, clavicles, and shoulders. There is no demonstrated abnormality of the visualized soft tissue structures of the upper abdomen. RAD/Chest 1 View (Portable) IMPRESSION: Normal x-ray examination of the chest. Electronically Signed: Tom Hyatt MD at 17:14 EST Tel , Service support ,
[2020-09-15 16:53] LABS: Absolute Lymphocyte Count 1.81 X10^3/uL (0.83-4.51); Absolute Neutrophil Count 1.3 X10^3/uL (2.0-7.7); Basophil# 0.01 X10^3/uL; Basophil% 0.3 % (0-1); Eosinophil# 0.06 X10^3/uL; Eosinophils% 1.7 % (0-5); Hematocrit 49.7 % (40-54); Hemoglobin 16.7 g/dL (13.0-16.5); Lymphocyte # 1.81 X10^3/ul (4.0); Lymphocyte % 51.4 % (19-41); Mean Corp Hgb Conc 33.6 g/dL (32-36); Mean Corpuscular Hgb 29.3 pg (27.0-32.0); Mean Corpuscular Volume 87.2 fL (80-94); Monocyte# 0.38 X10^3/uL; Monocyte% 10.8 % (0-10); NRBC Flagged by Analyzer 0 % (0-5); Neutrophil # 1.25 X10^3/uL (2.7-7.7); Neutrophil % 35.5 % (47-70); Platelet Count 282 K/mm3 (150-450); RBC Distribution Width CV 12.7 % (11.6-14.6); RBC Distribution Width SD 40.7 fl (35.1-43.9); White Blood Count 3.5 K/mm3 (4.4-11.0)
[2020-09-15 17:02] LABS: D-Dimer Quantitative (DVT/PE) 0.31 FEU/ug/m (0.27-0.49)
[2020-09-15 17:13] LABS: Anion Gap 6 (5-15); BUN 13 mg/dL (7-18); Calcium,Total 8.7 mg/dL (8.5-10.1); Chloride 104 mmol/L (98-107); Creatinine, Serum 0.93 mg/dL (0.70-1.30); EST Glomerular Filtration Rate 90 mL/min (>60); Est Glom Filt Rate - Afr Amer 108 mL/min (>60); Estimated Creatinine Clearance 91.58 ml/min; Glucose 99 mg/dL (74-106); Sodium Level 139 mmol/L (136-145)
--- NOTE | 2020-09-15 18:08 | CT_ITS ---
STUDY: CTA CHEST REASON FOR EXAM: Male, 55 years old. R/O PE. COUGH, SOB, INTERNAL CHEST PAIN. COVID. RADIATION DOSAGE (If Supplied By Facility): CTDIvol = ( 63131 ) mGy, DLP = ( 455.47 ) mGycm TECHNIQUE: The examination was performed with the intravenous administration of IV 100mL Isovue-370. Post-processing of the angiographic images was performed, with multiplanar reformation and 3D reconstruction. Individualized dose optimization techniques were used for this CT. COMPARISON: None. FINDINGS: Normal enhancement of the main pulmonary artery and right and left pulmonary arteries. Normal enhancement of the bilateral peripheral pulmonary arteries. There is no demonstrated pulmonary embolism. Normal thoracic aorta and visualized great vessels. There is no demonstrated aortic dissection. Normal heart and pericardium. Normal mediastinum. Normal hilar regions. Normal visualized trachea and bronchi. The lungs are well expanded. Normal pulmonary parenchyma. Normal pleura. Normal chest wall structures. Normal osseous structures. Normal visualized upper abdomen. CT/CTA Chest W/WO Contrast IMPRESSION: Normal CTA chest examination, without a demonstrated pulmonary embolism or arterial dissection. Electronically Signed: Alli Skinner MD at 19:40 EST , Service support ,
[2020-09-15 20:00] VITALS: BP 126/105; PULSE 74; RESP 16; O2SAT 97
--- NOTE | 2020-09-15 20:36 | ED.DEP ---
ED Disposition - Plan for ED Patient: Instructions: Coronavirus Disease 2019 (COVID-19): Overview Referrals: Ash Mcpherson MD [Primary Care Provider] -
[2020-09-15 20:43] VITALS: O2SAT 97
== END 2020-09-15 20:50 | disposition home or self-care (01) ==
LOC: ED 17:07
PROVIDERS: Emergency Provider Emergency Medicine; PCP Family Medicine
DX: U07.1 COVID-19 (principal); R07.89 Other chest pain; Z20.822 Contact with and (suspected) exposure to COVID-19
CPT/HCPCS: 36415; 71045; 71275; 80048; 84484; 85025; 85379; 93005; 99285; Q9967; A4216

== ENCOUNTER → 2021-01-06 16:39 | Outpatient (CLI) | payer OTHER, SELFPAY ==
[2021-01-06 17:48] LABS: Absolute Lymphocyte Count 2.24 X10^3/uL (0.83-4.51); Absolute Neutrophil Count 3.4 X10^3/uL (2.0-7.7); Basophil# 0.05 X10^3/uL; Basophil% 0.8 % (0-1); Eosinophil# 0.16 X10^3/uL; Eosinophils% 2.5 % (0-5); Hematocrit 48.2 % (40-54); Hemoglobin 15.7 g/dL (13.0-16.5); Lymphocyte # 2.24 X10^3/ul (0.83-4.51); Lymphocyte % 34.3 % (19-41); Mean Corp Hgb Conc 32.6 g/dL (32-36); Mean Corpuscular Hgb 29.4 pg (27.0-32.0); Mean Corpuscular Volume 90.3 fL (80-94); Mean Platelet Vol. 9.4 fl (6.2-12.0); Monocyte# 0.65 X10^3/uL; NRBC Flagged by Analyzer 0 % (0-5); Neutrophil # 3.41 X10^3/uL (2.7-7.7); Neutrophil % 52.1 % (47-70); Platelet Count 350 K/mm3 (150-450); RBC Distribution Width CV 12.9 % (11.6-14.6); RBC Distribution Width SD 42.6 fl (35.1-43.9); Red Blood Count 5.34 M/mm3 (4.6-6.2); White Blood Count 6.5 K/mm3 (4.4-11.0)
[2021-01-06 18:27] LABS: ALB/GLOB Ratio 1.1 RATIO (0.9-2.4); AST(SGOT) 19 U/L (15-37); Alanine Aminotransfer ALT/SGPT 25 U/L (16-61); Albumin, Serum 3.7 g/dL (3.2-5.0); Alkaline Phosphatase 95 U/L (45-117); Anion Gap 5 (5-15); BUN 18 mg/dL (7-18); BUN/Creat Ratio 20.3 RATIO (10-20); Calcium,Total 9.1 mg/dL (8.5-10.1); Chloride 104 mmol/L (98-107); Creatinine, Serum 0.88 mg/dL (0.70-1.30); EST Glomerular Filtration Rate 94 mL/min (>60); Est Glom Filt Rate - Afr Amer 114 mL/min (>60); Globulin 3.5 g/dL (2.2-4.2); Glucose 92 mg/dL (74-106); Potassium 4.1 mmol/L (3.5-5.1); Protein, Total 7.2 g/dL (6.4-8.2); Sodium Level 140 mmol/L (136-145)
== END ==
PROVIDERS: PCP Family Medicine; Referring Provider Internal Medicine Rheumatology; Visit Provider Internal Medicine Rheumatology
DX: L40.59 Other psoriatic arthropathy (principal); Z79.899 Other long term (current) drug therapy; L40.8 Other psoriasis; K21.9 Gastro-esophageal reflux disease without esophagitis; L80 Vitiligo; E03.9 Hypothyroidism, unspecified; F32.9 Major depressive disorder, single episode, unspecified; G47.33 Obstructive sleep apnea (adult) (pediatric)
CPT/HCPCS: 36415; 80053; 85025

== ENCOUNTER → 2021-06-22 11:03 | Outpatient (CLI) | payer OTHER, SELFPAY ==
--- NOTE | 2021-06-22 12:56 | NEURO ---
NCS and/or EMG Patient Report Ordering Doctor: Britta Sandoval DATE OF SERVICE: 06/22/21 Indication: Right thumb pain related to arthritis. Intermittent numbness involving both hands (all fingers) which is dependent on positioning. No significant neck pain. Findings: Nerve conduction studies were performed in the right and left upper extremities. The right median motor study recording the abductor pollicis brevis showed a normal amplitude, normal distal latency and normal conduction velocity. The right ulnar motor study recording the abductor digiti minimi showed a normal amplitude, normal distal latency and normal conduction velocity. No conduction block or focal slowing was present across the elbow. The right median sensory response recording digit two showed a normal amplitude, latency and conduction velocity. The right ulnar sensory response recording digit five showed an absent response*. The right radial sensory response recording over the extensor snuff box showed a normal amplitude, latency and conduction velocity. The left median motor study recording the abductor pollicis brevis showed a normal amplitude, normal distal latency and normal conduction velocity. The left ulnar motor study recording the abductor digiti minimi showed a normal amplitude, normal distal latency and normal conduction velocity. No conduction block or focal slowing was present across the elbow. The left median sensory response recording digit two showed a normal amplitude, normal latency and borderline conduction velocity. The left ulnar sensory response recording digit five showed a reduced amplitude, borderline latency and slowed conduction velocity*. The left radial sensory response recording over the extensor snuff box showed a normal amplitude, normal latency and mildly slowed conduction velocity. Right median-ulnar lumbrical / interosseous motor latencies showed a normal median latency compared to the ulnar. Left median-ulnar lumbrical / interosseous motor latencies showed a normal median latency compared to the ulnar. Needle EMG of the right upper extremity muscles was performed. No denervation was seen in any muscle. All motor unit morphology, activation and recruitment patterns were normal. Limited needle EMG of the left upper extremity muscles was performed. No denervation was seen in any muscle. All motor unit morphology, activation and recruitment patterns were normal. Impression: This is an essentially normal study. There is no definitive electrophysiologic evidence of entrapment neuropathy in either upper extremity. In addition, there is no electrophysiologic evidence of cervical radiculopathy in the right upper extremity. *The ulnar sensory responses were technically challenging to obtain. These isolated findings, in the setting of normal motor nerve conduction studies and normal motor units on needle examination, are of unclear significance. Caution should be used when interpreting these results as the patient does not clinically have fixed sensory loss within the ulnar territory. Regino Merino D.O. Multi Select Codes Neurology Neurology Interp Codes: 11891-76 Musc tst done w/nerv tst graham (interp) (58), 12879-09 Musc test done w/n test comp (interp) and 85508-10 Nrv cndj test 13/> studies (interp)
== END ==
PROVIDERS: PCP Family Medicine; Visit Provider Orthopaedic Surgery Hand Surgery
DX: R20.0 Anesthesia of skin (principal)
CPT/HCPCS: 95885; 95886; 95913

== ENCOUNTER → 2021-09-02 11:50 | Outpatient (CLI) | payer OTHER, SELFPAY ==
[2021-09-02 15:29] LABS: D-Dimer Quantitative (DVT/PE) 0.33 FEU/ug/m (0.27-0.49)
== END ==
PROVIDERS: PCP Family Medicine; Visit Provider Family Medicine
DX: R07.9 Chest pain, unspecified (principal)
CPT/HCPCS: 36415; 85379

== ENCOUNTER 2021-09-10 11:14 | Outpatient (CLI) | payer OTHER, SELFPAY ==
[2021-09-10 12:07] LABS: Absolute Lymphocyte Count 2.89 X10^3/uL (0.83-4.51); Absolute Neutrophil Count 3.7 X10^3/uL (2.0-7.7); Basophil# 0.07 X10^3/uL; Basophil% 0.9 % (0-1); Eosinophil# 0.12 X10^3/uL; Eosinophils% 1.6 % (0-5); Hematocrit 48.7 % (40-54); Hemoglobin 16.3 g/dL (13.0-16.5); Lymphocyte # 2.89 X10^3/ul (0.83-4.51); Lymphocyte % 38.1 % (19-41); Mean Corp Hgb Conc 33.5 g/dL (32-36); Mean Corpuscular Hgb 30.1 pg (27.0-32.0); Mean Corpuscular Volume 89.9 fL (80-94); Mean Platelet Vol. 9.4 fl (6.2-12.0); Monocyte# 0.73 X10^3/uL; Monocyte% 9.6 % (0-10); NRBC Flagged by Analyzer 0 % (0-5); Neutrophil # 3.67 X10^3/uL (2.7-7.7); Neutrophil % 48.4 % (47-70); Platelet Count 403 K/mm3 (150-450); RBC Distribution Width CV 12.8 % (11.6-14.6); Red Blood Count 5.42 M/mm3 (4.6-6.2); White Blood Count 7.6 K/mm3 (4.4-11.0)
[2021-09-10 12:28] LABS: Erythrocyte Sedimentation Rate 3 mm/hr (0-20)
[2021-09-10 12:43] LABS: AST(SGOT) 25 U/L (15-37); Alanine Aminotransfer ALT/SGPT 44 U/L (16-61); Albumin, Serum 3.8 g/dL (3.2-5.0); Alkaline Phosphatase 95 U/L (45-117); Bilirubin, Direct 0.15 mg/dL (0.00-0.30); CRP < 2.90 mg/L (0.0-3.0); Creatinine, Serum 0.91 mg/dL (0.70-1.30); EST Glomerular Filtration Rate 91 mL/min (>60); Est Glom Filt Rate - Afr Amer 110 mL/min (>60); Globulin 3.9 g/dL (2.2-4.2); Protein, Total 7.7 g/dL (6.4-8.2)
== END 2021-09-10 23:59 | disposition short-term general hospital (02) ==
LOC: LAB.FUTURE 11:19 → LAB 11:24
PROVIDERS: PCP Family Medicine; Referring Provider Internal Medicine Rheumatology; Visit Provider Internal Medicine Rheumatology
DX: L40.50 Arthropathic psoriasis, unspecified (principal); Z79.899 Other long term (current) drug therapy
CPT/HCPCS: 36415; 80076; 82565; 85025; 85652; 86140

== ENCOUNTER 2021-12-04 09:04 | Outpatient (CLI) | payer OTHER, SELFPAY ==
[2021-12-04 10:07] LABS: Absolute Lymphocyte Count 2.38 X10^3/uL (0.83-4.51); Absolute Neutrophil Count 4.1 X10^3/uL (2.0-7.7); Basophil# 0.06 X10^3/uL; Basophil% 0.8 % (0-1); Eosinophil# 0.15 X10^3/uL; Eosinophils% 2.1 % (0-5); Hematocrit 47.1 % (40-54); Hemoglobin 15.4 g/dL (13.0-16.5); Lymphocyte # 2.38 X10^3/ul (0.83-4.51); Lymphocyte % 32.6 % (19-41); Mean Corp Hgb Conc 32.7 g/dL (32-36); Mean Corpuscular Hgb 29.5 pg (27.0-32.0); Mean Corpuscular Volume 90.2 fL (80-94); Mean Platelet Vol. 9.5 fl (6.2-12.0); Monocyte# 0.63 X10^3/uL; Monocyte% 8.6 % (0-10); NRBC Flagged by Analyzer 0 % (0-5); Neutrophil # 4.05 X10^3/uL (2.7-7.7); Neutrophil % 55.4 % (47-70); Platelet Count 351 K/mm3 (150-450); RBC Distribution Width SD 42.8 fl (35.1-43.9); Red Blood Count 5.22 M/mm3 (4.6-6.2); White Blood Count 7.3 K/mm3 (4.4-11.0)
[2021-12-04 10:11] LABS: Erythrocyte Sedimentation Rate 7 mm/hr (0-20)
[2021-12-04 11:13] LABS: AST(SGOT) 21 U/L (15-37); Alanine Aminotransfer ALT/SGPT 31 U/L (16-61); Alkaline Phosphatase 86 U/L (45-117); Bilirubin, Direct 0.15 mg/dL (0.00-0.30); CRP < 2.90 mg/L (0.0-3.0); Creatinine, Serum 1.08 mg/dL (0.70-1.30); EST Glomerular Filtration Rate 75 mL/min (>60); Est Glom Filt Rate - Afr Amer 90 mL/min (>60); Globulin 3.3 g/dL (2.2-4.2); Protein, Total 7.3 g/dL (6.4-8.2)
== END 2021-12-04 23:59 | disposition home or self-care (01) ==
LOC: LAB 09:07
PROVIDERS: PCP Family Medicine; Visit Provider Internal Medicine Rheumatology
DX: L40.50 Arthropathic psoriasis, unspecified (principal); Z79.899 Other long term (current) drug therapy
CPT/HCPCS: 36415; 80076; 82565; 85025; 85652; 86140

== ENCOUNTER → 2022-03-02 | Outpatient (CLI) | payer OTHER, SELFPAY ==
[2022-03-02 08:20] LABS: PSA,Total - Annual Screen 1.79 ng/mL (0.00-4.00); Thyroid Stim Hormone (TSH) 3.15 uIU/mL (0.358-3.74)
[2022-03-02 08:24] LABS: Vitamin D,25 Hydroxy 34.1 ng/mL
== END | disposition home or self-care (01) ==
LOC: LAB 07:21
PROVIDERS: PCP Family Medicine; Referring Provider Family Medicine; Visit Provider Family Medicine
DX: Z00.00 Encounter for general adult medical examination without abnormal findings (principal); E03.9 Hypothyroidism, unspecified; Z12.5 Encounter for screening for malignant neoplasm of prostate
CPT/HCPCS: 36415; 82306; 84153; 84443; G0103

== ENCOUNTER → 2022-03-09 | Outpatient (CLI) | payer OTHER, SELFPAY ==
[2022-03-09 08:55] LABS: Erythrocyte Sedimentation Rate 3 mm/hr (0-20)
[2022-03-09 08:57] LABS: Absolute Lymphocyte Count 2.05 X10^3/uL (0.83-4.51); Absolute Neutrophil Count 3.4 X10^3/uL (2.0-7.7); Basophil# 0.03 X10^3/uL; Basophil% 0.5 % (0-1); Eosinophil# 0.15 X10^3/uL; Eosinophils% 2.4 % (0-5); Hematocrit 47.7 % (40-54); Hemoglobin 15.7 g/dL (13.0-16.5); Lymphocyte # 2.05 X10^3/ul (0.83-4.51); Lymphocyte % 32.7 % (19-41); Mean Corp Hgb Conc 32.9 g/dL (32-36); Mean Corpuscular Hgb 29.3 pg (27.0-32.0); Mean Corpuscular Volume 89.2 fL (80-94); Mean Platelet Vol. 9.7 fl (6.2-12.0); Monocyte# 0.62 X10^3/uL; Monocyte% 9.9 % (0-10); NRBC Flagged by Analyzer 0 % (0-5); Neutrophil # 3.39 X10^3/uL (2.7-7.7); Neutrophil % 54.2 % (47-70); Platelet Count 346 K/mm3 (150-450); RBC Distribution Width CV 13.6 % (11.6-14.6); RBC Distribution Width SD 44.3 fl (35.1-43.9); Red Blood Count 5.35 M/mm3 (4.6-6.2); White Blood Count 6.3 K/mm3 (4.4-11.0)
[2022-03-09 09:37] LABS: AST(SGOT) 20 U/L (15-37); Alanine Aminotransfer ALT/SGPT 24 U/L (16-61); Albumin, Serum 3.7 g/dL (3.2-5.0); Alkaline Phosphatase 86 U/L (45-117); CRP 5.23 mg/L (0.0-3.0); Creatinine, Serum 0.93 mg/dL (0.70-1.30); EST Glomerular Filtration Rate 89 mL/min (>60); Est Glom Filt Rate - Afr Amer 108 mL/min (>60); Globulin 3.6 g/dL (2.2-4.2); Protein, Total 7.3 g/dL (6.4-8.2)
== END | disposition home or self-care (01) ==
LOC: LAB 07:58
PROVIDERS: PCP Family Medicine; Visit Provider Internal Medicine Rheumatology
DX: L40.50 Arthropathic psoriasis, unspecified (principal); Z79.899 Other long term (current) drug therapy
CPT/HCPCS: 36415; 80076; 82565; 85025; 85652; 86140

== ENCOUNTER → 2022-05-31 | Outpatient (CLI) | payer OTHER, SELFPAY ==
--- NOTE | 2022-05-31 16:19 | NEURO ---
NCS and/or EMG Patient Report Ordering Doctor: Ash Delgado DATE OF SERVICE: 05/31/22 Indication: Paresthesias and warm sensations in the soles of both feet. Pain with walking. Evaluate for peripheral neuropathy. Findings: Nerve conduction studies were performed in the right and left lower extremities. The right peroneal motor study recording the extensor digitorum brevis showed a normal amplitude, normal distal latency and normal conduction velocity. No conduction block or focal slowing was present across the fibular neck. The right tibial motor study recording the abductor hallucis brevis showed a normal amplitude, normal distal latency and normal conduction velocity. Right sural sensory response showed a normal amplitude and slightly reduced conduction velocity. Right superficial peroneal sensory response showed a normal amplitude and borderline conduction velocity. Right medial plantar response showed a normal amplitude and conduction velocity. The left peroneal motor study recording the extensor digitorum brevis showed a normal amplitude, normal distal latency and normal conduction velocity. No conduction block or focal slowing was present across the fibular neck. The left tibial motor study recording the abductor hallucis brevis showed a normal amplitude, normal distal latency and normal conduction velocity. Left sural sensory response showed a normal amplitude and slightly reduced conduction velocity. Left superficial peroneal sensory response showed a normal amplitude and borderline conduction velocity. Left medial plantar response showed a slightly reduced amplitude and normal conduction velocity. Needle EMG of the left lower extremity and paraspinal muscles was performed. No denervation was present in any muscle. Motor unit morphology, activation, and recruitment patterns were normal. Needle EMG of the right lower extremity was omitted given the symmetry of the patient's symptoms and paucity of findings on the left. Impression: This is a mildly abnormal study. There is no definitive electrophysiologic evidence of peripheral neuropathy in the lower extremities. That said, the mildly reduced sensory velocities in the lower extremities may be indicative of an early, sensory predominant peripheral neuropathy. A repeat study in 3 months could be considered if symptoms continue to progress clinically. In addition, please note: routine nerve conduction studies and needle EMG assess the larger, myelinated motor and sensory fibers. Thus, routine electrodiagnostic studies may be insensitive in detecting a peripheral neuropathy restricted to small fibers alone (i.e., pain, temperature and autonomic fibers). Regino Merino D.O. Multi Select Codes Neurology Neurology Interp Codes: 21900-95 Musc test done w/n test comp (interp) and 12234-40 Nrv marlysj test 9-10 studies (interp)
== END | disposition home or self-care (01) ==
LOC: PSN 14:10
PROVIDERS: PCP Family Medicine; Referring Provider Family Medicine; Visit Provider Family Medicine
DX: R20.0 Anesthesia of skin (principal); R20.2 Paresthesia of skin
CPT/HCPCS: 95886; 95911

== ENCOUNTER → 2022-06-09 | Outpatient (CLI) | payer OTHER, SELFPAY ==
[2022-06-09 09:36] LABS: Absolute Lymphocyte Count 2.39 X10^3/uL (0.83-4.51); Absolute Neutrophil Count 3.1 X10^3/uL (2.0-7.7); Basophil# 0.04 X10^3/uL; Basophil% 0.6 % (0-1); Eosinophil# 0.14 X10^3/uL; Eosinophils% 2.2 % (0-5); Hemoglobin 15.8 g/dL (13.0-16.5); Lymphocyte # 2.39 X10^3/ul (0.83-4.51); Lymphocyte % 37.5 % (19-41); Mean Corp Hgb Conc 32.9 g/dL (32-36); Mean Corpuscular Hgb 29.7 pg (27.0-32.0); Mean Corpuscular Volume 90.2 fL (80-94); Mean Platelet Vol. 9.5 fl (6.2-12.0); Monocyte# 0.69 X10^3/uL; Monocyte% 10.8 % (0-10); NRBC Flagged by Analyzer 0 % (0-5); Neutrophil # 3.09 X10^3/uL (2.7-7.7); Neutrophil % 48.6 % (47-70); Platelet Count 334 K/mm3 (150-450); RBC Distribution Width CV 13.1 % (11.6-14.6); Red Blood Count 5.32 M/mm3 (4.6-6.2); White Blood Count 6.4 K/mm3 (4.4-11.0)
[2022-06-09 09:51] LABS: Erythrocyte Sedimentation Rate 4 mm/hr (0-20)
[2022-06-09 10:22] LABS: AST(SGOT) 22 U/L (15-37); Alanine Aminotransfer ALT/SGPT 29 U/L (16-61); Albumin, Serum 3.5 g/dL (3.2-5.0); Alkaline Phosphatase 89 U/L (45-117); Bilirubin, Direct 0.14 mg/dL (0.00-0.30); CRP < 2.90 mg/L (0.0-3.0); Creatinine, Serum 0.83 mg/dL (0.70-1.30); EST Glomerular Filtration Rate 101 mL/min (>60); Est Glom Filt Rate - Afr Amer 122 mL/min (>60); Globulin 3.7 g/dL (2.2-4.2); Protein, Total 7.2 g/dL (6.4-8.2)
== END | disposition home or self-care (01) ==
LOC: LAB 08:36
PROVIDERS: PCP Family Medicine
DX: L40.50 Arthropathic psoriasis, unspecified (principal); Z79.899 Other long term (current) drug therapy
CPT/HCPCS: 36415; 80076; 82565; 85025; 85652; 86140

== ENCOUNTER → 2022-06-30 | Outpatient (CLI) | payer OTHER, SELFPAY ==
--- NOTE | 2022-06-30 07:35 | RAD_ITS ---
EXAM: XR LUMBOSACRAL SPINE, 2 OR 3 VIEWS CLINICAL INDICATION: Low back pain TECHNIQUE: Frontal and lateral views of the lumbar spine and sacrum. This report was created using [employer] report generation technology. COMPARISON: XR Lumbosacral Spine dated 08/11/2016 FINDINGS: VERTEBRAE: Bilateral L5 spondylolysis noted with grade 1 spondylolisthesis. Stable mild retrolisthesis of L4 on L5. Mild vertebral body osteophytosis. Preserved vertebral body height. No fracture. Preservation of the normal lumbar lordosis. No significant facet arthropathy. DISC SPACES: No acute findings. Disc spaces are maintained. RAD/Lumbar Spine 2 or 3 Views IMPRESSION: No acute abnormality. No interval change. Electronically Signed: Damien Lynne MD at 8:44 EDT ,
[2022-06-30 08:14] LABS: Vitamin B12 342 pg/mL (211-911)
[2022-06-30 08:42] LABS: Anion Gap 2 (5-15); BUN 13 mg/dL (7-18); BUN/Creat Ratio 13.9 RATIO (10-20); Calcium,Total 8.6 mg/dL (8.5-10.1); Chloride 107 mmol/L (98-107); Creatinine, Serum 0.94 mg/dL (0.70-1.30); EST Glomerular Filtration Rate 88 mL/min (>60); Est Glom Filt Rate - Afr Amer 106 mL/min (>60); Ferritin 61 ng/mL (26-388); Glucose 101 mg/dL (74-106); Iron 129 ug/dL (65-175); Potassium 4.1 mmol/L (3.5-5.1); Sodium Level 139 mmol/L (136-145); T4 Free Direct 1.24 ng/dL (0.76-1.46); Thyroid Stim Hormone (TSH) 2.59 uIU/mL (0.358-3.74)
[2022-07-03 13:07] LABS: Free Kappa Light Chains 19.6 mg/L (3.3-19.4); Free Lambda Light Chains 15.2 mg/L (5.7-26.3)
[2022-07-03 14:15] LABS: Vitamin B1, Thiamine 217.6 nmol/L (66.5-200.0)
== END | disposition home or self-care (01) ==
LOC: LAB 07:17
PROVIDERS: PCP Family Medicine; Referring Provider Psychiatry & Neurology Neurology; Visit Provider Psychiatry & Neurology Neurology
DX: M54.50 Low back pain, unspecified (principal); G62.9 Polyneuropathy, unspecified; E03.9 Hypothyroidism, unspecified; G25.81 Restless legs syndrome
CPT/HCPCS: 36415; 72100; 80048; 82607; 82728; 82746; 83540; 83883; 84425; 84439; 84443

== ENCOUNTER → 2022-07-08 | Outpatient (CLI) | payer OTHER, SELFPAY ==
[2022-07-13 14:09] LABS: Albumin 3.8 g/dL (2.9-4.4); Alpha-1-Globulins 0.2 g/dL (0.0-0.4); Alpha-2-Globulins 0.6 g/dL (0.4-1.0); Gamma Globulin 1.2 g/dL (0.4-1.8); Immunoglobulin A 187 mg/dL (90-386); Immunoglobulin G 1132 mg/dL (603-1613); Immunoglobulin M 97 mg/dL (20-172); PROEL- TOTAL PROTEIN 6.6 g/dL (6.0-8.5)
[2022-07-13 16:31] LABS: IMMUNOFIXATION RESULT,S Comment: (.)
== END | disposition home or self-care (01) ==
PROVIDERS: PCP Family Medicine; Referring Provider Psychiatry & Neurology Neurology; Visit Provider Psychiatry & Neurology Neurology
DX: G62.9 Polyneuropathy, unspecified (principal)
CPT/HCPCS: 36415; 82784; 84165; 86334; 86335

== ENCOUNTER → 2022-09-07 | Outpatient (CLI) | payer OTHER, SELFPAY ==
[2022-09-07 12:30] LABS: Erythrocyte Sedimentation Rate 6 mm/hr (0-20)
[2022-09-07 12:32] LABS: Absolute Lymphocyte Count 2.53 X10^3/uL (0.83-4.51); Absolute Neutrophil Count 4.1 X10^3/uL (2.0-7.7); Basophil# 0.05 X10^3/uL; Basophil% 0.7 % (0-1); Eosinophil# 0.15 X10^3/uL; Hematocrit 48.6 % (40-54); Hemoglobin 15.9 g/dL (13.0-16.5); Lymphocyte # 2.53 X10^3/ul (0.83-4.51); Lymphocyte % 33.6 % (19-41); Mean Corp Hgb Conc 32.7 g/dL (32-36); Mean Corpuscular Hgb 29.7 pg (27.0-32.0); Mean Corpuscular Volume 90.8 fL (80-94); Mean Platelet Vol. 9.1 fl (6.2-12.0); Monocyte# 0.69 X10^3/uL; Monocyte% 9.2 % (0-10); NRBC Flagged by Analyzer 0 % (0-5); Neutrophil # 4.06 X10^3/uL (2.7-7.7); Neutrophil % 53.8 % (47-70); Platelet Count 351 K/mm3 (150-450); RBC Distribution Width CV 13.2 % (11.6-14.6); RBC Distribution Width SD 44.4 fl (35.1-43.9); Red Blood Count 5.35 M/mm3 (4.6-6.2); White Blood Count 7.5 K/mm3 (4.4-11.0)
[2022-09-07 13:22] LABS: AST(SGOT) 22 U/L (15-37); Alanine Aminotransfer ALT/SGPT 32 U/L (16-61); Albumin, Serum 3.6 g/dL (3.2-5.0); Alkaline Phosphatase 92 U/L (45-117); Bilirubin, Direct 0.13 mg/dL (0.00-0.30); CRP < 2.90 mg/L (0.0-3.0); EST Glomerular Filtration Rate 92 mL/min (>60); Est Glom Filt Rate - Afr Amer 111 mL/min (>60); Globulin 3.6 g/dL (2.2-4.2); Protein, Total 7.2 g/dL (6.4-8.2)
== END | disposition home or self-care (01) ==
LOC: LAB 11:58
PROVIDERS: PCP Family Medicine; Referring Provider Internal Medicine Rheumatology; Visit Provider Internal Medicine Rheumatology
DX: L40.50 Arthropathic psoriasis, unspecified (principal); Z79.899 Other long term (current) drug therapy
CPT/HCPCS: 36415; 80076; 82565; 85025; 85652; 86140

== ENCOUNTER → 2022-10-29 | Outpatient (CLI) | payer OTHER, SELFPAY ==
[2022-11-01 15:08] LABS: Albumin 3.9 g/dL (2.9-4.4); Alpha-1-Globulins 0.2 g/dL (0.0-0.4); Alpha-2-Globulins 0.6 g/dL (0.4-1.0); Gamma Globulin 1.2 g/dL (0.4-1.8); Immunoglobulin A 185 mg/dL (90-386); Immunoglobulin G 1199 mg/dL (603-1613); Immunoglobulin M 106 mg/dL (20-172); PROEL- TOTAL PROTEIN 6.8 g/dL (6.0-8.5)
== END | disposition home or self-care (01) ==
LOC: LAB 08:38
PROVIDERS: PCP Family Medicine; Referring Provider Psychiatry & Neurology Neurology; Visit Provider Psychiatry & Neurology Neurology
DX: G62.9 Polyneuropathy, unspecified (principal)
CPT/HCPCS: 36415; 82784; 84165; 86334

== ENCOUNTER → 2022-12-06 | Outpatient (CLI) | payer OTHER, SELFPAY ==
[2022-12-06 12:41] LABS: Erythrocyte Sedimentation Rate 2 mm/hr (0-20)
[2022-12-06 12:42] LABS: Absolute Lymphocyte Count 2.07 X10^3/uL (0.83-4.51); Absolute Neutrophil Count 4.3 X10^3/uL (2.0-7.7); Basophil# 0.04 X10^3/uL; Basophil% 0.6 % (0-1); Eosinophil# 0.14 X10^3/uL; Hematocrit 47.2 % (40-54); Hemoglobin 15.9 g/dL (13.0-16.5); Lymphocyte # 2.07 X10^3/ul (0.83-4.51); Lymphocyte % 29.2 % (19-41); Mean Corp Hgb Conc 33.7 g/dL (32-36); Mean Corpuscular Hgb 30.8 pg (27.0-32.0); Mean Corpuscular Volume 91.3 fL (80-94); Mean Platelet Vol. 9.4 fl (6.2-12.0); Monocyte# 0.55 X10^3/uL; Monocyte% 7.7 % (0-10); NRBC Flagged by Analyzer 0 % (0-5); Neutrophil # 4.27 X10^3/uL (2.7-7.7); Neutrophil % 60.1 % (47-70); Platelet Count 336 K/mm3 (150-450); RBC Distribution Width CV 12.6 % (11.6-14.6); RBC Distribution Width SD 42.4 fl (35.1-43.9); Red Blood Count 5.17 M/mm3 (4.6-6.2); White Blood Count 7.1 K/mm3 (4.4-11.0)
[2022-12-06 13:02] LABS: AST(SGOT) 27 U/L (15-37); Alanine Aminotransfer ALT/SGPT 35 U/L (16-61); Albumin, Serum 3.6 g/dL (3.2-5.0); Alkaline Phosphatase 95 U/L (45-117); Bilirubin, Direct 0.12 mg/dL (0.00-0.30); CRP < 2.90 mg/L (0.0-3.0); Creatinine, Serum 0.98 mg/dL (0.70-1.30); EST Glomerular Filtration Rate 83 mL/min (>60); Est Glom Filt Rate - Afr Amer 100 mL/min (>60); Globulin 3.4 g/dL (2.2-4.2)
== END | disposition home or self-care (01) ==
PROVIDERS: PCP Family Medicine
DX: Z79.899 Other long term (current) drug therapy (principal); L40.50 Arthropathic psoriasis, unspecified
CPT/HCPCS: 36415; 80076; 82565; 85025; 85652; 86140

== ENCOUNTER → 2023-03-02 | Outpatient (CLI) | payer OTHER, SELFPAY ==
[2023-03-02 08:16] LABS: Anion Gap 4 (5-15); BUN 15 mg/dL (7-18); BUN/Creat Ratio 15.8 RATIO (10-20); Calcium,Total 8.8 mg/dL (8.5-10.1); Chloride 108 mmol/L (98-107); Cholesterol 179 mg/dL (200); Creatinine, Serum 0.95 mg/dL (0.70-1.30); EST Glomerular Filtration Rate 87 mL/min (>60); Est Glom Filt Rate - Afr Amer 105 mL/min (>60); Free T3 2.5 pg/mL (2.18-3.98); Glucose 99 mg/dL (74-106); High Density Lipoprotein 40 mg/dL; PSA,Total - Annual Screen 2.12 ng/mL (0.00-4.00); Potassium 4.3 mmol/L (3.5-5.1); Sodium Level 140 mmol/L (136-145); T4 Free Direct 1.04 ng/dL (0.76-1.46); Thyroid Stim Hormone (TSH) 2.73 uIU/mL (0.358-3.74); Triglycerides 268 mg/dL; Very Low Density Lipoprotein 54 mg/dL (5-40)
== END | disposition home or self-care (01) ==
PROVIDERS: PCP Family Medicine; Referring Provider Family Medicine; Visit Provider Family Medicine
DX: Z00.00 Encounter for general adult medical examination without abnormal findings (principal); E03.9 Hypothyroidism, unspecified; Z12.5 Encounter for screening for malignant neoplasm of prostate
CPT/HCPCS: 36415; 80048; 80061; 84153; 84439; 84443; 84481; G0103

== ENCOUNTER → 2023-03-09 | Outpatient (CLI) | payer OTHER, SELFPAY ==
[2023-03-09 07:45] LABS: Absolute Lymphocyte Count 3.42 X10^3/uL (0.83-4.51); Absolute Neutrophil Count 2.4 X10^3/uL (2.0-7.7); Basophil# 0.05 X10^3/uL; Basophil% 0.8 % (0-1); Eosinophil# 0.18 X10^3/uL; Eosinophils% 2.7 % (0-5); Hemoglobin 16.5 g/dL (13.0-16.5); Lymphocyte # 3.42 X10^3/ul (0.83-4.51); Lymphocyte % 51.9 % (19-41); Mean Corp Hgb Conc 32.4 g/dL (32-36); Mean Corpuscular Hgb 29.9 pg (27.0-32.0); Mean Corpuscular Volume 92.4 fL (80-94); Mean Platelet Vol. 9.6 fl (6.2-12.0); Monocyte# 0.48 X10^3/uL; Monocyte% 7.3 % (0-10); NRBC Flagged by Analyzer 0 % (0-5); Neutrophil # 2.42 X10^3/uL (2.7-7.7); Neutrophil % 36.7 % (47-70); Platelet Count 365 K/mm3 (150-450); RBC Distribution Width CV 12.9 % (11.6-14.6); RBC Distribution Width SD 43.8 fl (35.1-43.9); Red Blood Count 5.52 M/mm3 (4.6-6.2); White Blood Count 6.6 K/mm3 (4.4-11.0)
[2023-03-09 07:47] LABS: Erythrocyte Sedimentation Rate 4 mm/hr (0-20)
[2023-03-09 08:05] LABS: AST(SGOT) 24 U/L (15-37); Alanine Aminotransfer ALT/SGPT 27 U/L (16-61); Albumin, Serum 3.6 g/dL (3.2-5.0); Alkaline Phosphatase 100 U/L (45-117); Bilirubin, Direct 0.11 mg/dL (0.00-0.30); CRP 7.78 mg/L (0.0-3.0); Creatinine, Serum 0.91 mg/dL (0.70-1.30); EST Glomerular Filtration Rate 90 mL/min (>60); Est Glom Filt Rate - Afr Amer 109 mL/min (>60); Globulin 3.9 g/dL (2.2-4.2); Protein, Total 7.5 g/dL (6.4-8.2)
== END | disposition home or self-care (01) ==
PROVIDERS: PCP Family Medicine; Referring Provider Internal Medicine Rheumatology; Visit Provider Internal Medicine Rheumatology
DX: L40.50 Arthropathic psoriasis, unspecified (principal)
CPT/HCPCS: 36415; 80076; 82565; 85025; 85652; 86140

== ENCOUNTER 2023-04-08 06:23 | Day surgery (SDC) | payer OTHER, SELFPAY ==
[2023-04-08 06:48] VITALS: BP 145/90; PULSE 81; RESP 18; TEMP 36.6; O2SAT 99; BMI 29.2
[2023-04-08] MEDS: Lactated Ringers 1,000 ML 15 ML IV (06:54)
--- NOTE | 2023-04-08 07:22 | HP.PCM_ITS ---
[facility] - General General Date of Service: 04/08/23 HPI Narrative SIMONE BARLOW, is a 58 M who presents for screening colonoscopy history of colon polyps. Patient's last colonoscopy was in March 2018 patient did have hyperplastic polyp transverse colon and had a polyp that was in normal colon m ucosa at that time. Patient's father did have colon cancer but was diagnosed at age 82. Patient's bowel movements daily denies any blood. Patient Nuys any chronic abdominal pain/nausea/vomiting/reflux. [facility] Medical History (Updated 04/04/23 @ 15:54 by Cyndie Hawkins) Adalimumab (Humira) long-term use Arthritis Bone neoplasm Bronchitis COVID-19 CPAP (continuous positive airway pressure) dependence Depressive disorder GERD (gastroesophageal reflux disease) History of IBS Hx of colonic polyps Hypothyroidism Left knee pain Morning joint stiffness of left hand SVITLANA (obstructive sleep apnea) Osteoarthritis of fingers of hands, bilateral Osteoarthritis of left knee Pain in thumb joint with movement of left hand Psoriasis Psoriatic arthritis RLS (restless legs syndrome) Sleep apnea Swelling of finger joint of left hand Thyroid disease Tinnitus URI (upper respiratory infection) Wears glasses Home Medications adalimumab 10 mg/0.2 mL subcutaneous syringe kit 40 mg SQ UD 05/07/16 [History Last Taken 08/22/16] levothyroxine 100 mcg tablet 100 mcg PO DAILY 05/07/16 [History Last Taken 08:00] Allergy/AdvReac Type Severity Reaction Status Date / Time No Known Allergies Allergy Verified 04/08/23 06:47 Family History Father Diabetes Hypertension SVITLANA (obstructive sleep apnea) Other Arthritis Surgical History History of hand surgery History of left knee replacement Hx of colonoscopy S/P left knee arthroscopy S/P left unicompartmental knee replacement Social History household members: spouse housing: house current occupational status: employed Smoking Status: Never smoker second hand exposure: No alcohol intake: current details: occasionally substance use type: does not use what type of physical activity do you participate in: none danny/religious: Judaism seatbelt use: always Past Medical/Surgical History Planned Operation Planned Operative Procedure/s: CSCOPE S.O.S: No Previous Hospitalizations/Surgeries HX Hospitalizations: No HX of Surgeries: left knee mcl repair 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 colonoscopy Any Problems With Anesthesia: No You/Your Family Experience Fever (Hyperthermia) With Anes: No Cholinesterase deficiency: No Cardiovascular Hx Chest Pain within Last 2 months: No Hx of Irregular Heartbeat and/or Afib: No Hx Heart Attack: No Hx Congestive Heart Failure: No Hx Rheumatic Fever: No Hx Hypertension: No Hx Internal Defibrillator: No Hx Pacemaker: No Hx Cardiac Catheterization: No Hx Cardiac Surgery/Stents/Etc.: No Hx Stress Test: No Hx Pain in Legs when Walking/Leg Cramps: No Respiratory Chronic Cough: No HX of Shortness of Breath: No Hoarseness: No Hx Chronic Obstructive Pulmonary Disease (COPD): No Hx Asthma: No Hx Emphysema: No Hx Sleep Apnea: Yes CPAP: Yes (NON COMPLIANT) BIPAP: No Hx Respiratory Tract Infection/Cold (presently): No Result (for STOP score): Positive Hx Smoking: No Smoking Status: Never smoker Gastrointestinal Hx Gastroesophageal Reflux: Yes (no meds/watches caffeine intake) Controlled With Meds: No Hx Gastrointestinal Disorders: No Hx Gastrointestinal Bleed: No Hx Ulcer: No Hx Hiatal Hernia: No Difficulty Chewing/Swallowing: No Special diet followed at home: No Hx Unplanned Weight Loss of 20#: No HX Unplanned Weight Gain of 20#: No Neurological Hx Seizures: No HX Syncope/Blackout Spells/Unconsciousness: No Hx Transient Ischemic Attacks (TIA): No Hx Multiple Sclerosis: No Hx Parkinson's Disease: No Hx Head/Neck Injury: No Hx Headaches: No Hx Back Injury/Pain: No Recent Onset of Speech Difficulty: No Restless Legs: Yes Does patient have nerve stimulator: No Blood Disorder Hx Leukemia: No Bleeding Tendencies: No Hx Deep Vein Thrombosis: No Hx High Cholesterol: No Blood Transmitted Disease: No Hx Hepatitis: No Hx Cirrhosis: No Hx Anemia: No Hx Blood Disorders: No Genitourinary Hx Renal Disease: No Musculoskeletal Hx Arthritis: Yes (psoratic arthritis) Hx Rheumatoid Arthritis: No Hx Gout: No Recent Onset of an Orthopedic Problem: No Endocrine Hx Diabetes: No Thyroid Disease: Yes (on med) Hx Steroid Therapy: Yes (left knee injection 4 weeks ago) Psycho/Social Hx Substance Use: No Hx Alcohol Use: Yes (social) Hx Anxiety: No Hx Depression: Yes (on med) Mental Illness: No Hx Dementia: No Miscellaneous Hx Cancer: No Recent Exposure to Contagious Disease: No Hx of C-Diff: No Any Loose Teeth: No Allergies No Known Allergies Allergy (Verified 04/08/23 06:47) Discharge Is Pt Admitted From a Detention, or a [place] [facility]: No After D/C, Where Do you Plan to Go: Return Home Vital Signs Vital Signs Vital Signs: 04/08/23 06:48 04/08/23 06:48 Temperature 97.8 F Temperature Source Temporal Pulse Rate 81 Respiratory Rate 18 Respiratory Pattern Normal Blood Pressure 145/90 H Blood Pressure Mean 108 Blood Pressure Source Monitor Blood Pressure Position Sitting Blood Pressure Location Left Arm Pulse Ox 99 Oxygen Delivery Method Room Air Weight Weight: 203 lb 7.787 oz Body Mass Index (BMI) 29.2 Physical Exam Const alert, oriented x3 and no apparent distress HEENT normocephalic and head/scalp atraumatic Resp normal respiratory effort Cardio regular rate GI soft to palpation and non-tender; Negative for non-distended Palpation: Negative for guarding Extremity no clubbing, cyanosis or edema Neuro CN's II-XII intact bilaterally Psych mental status grossly normal Surgery Risks - Colonoscopy I discussed with the patient the risks of the procedure: Yes Risks Include but are not Limited To: Risks include but are not limited to: Bleeding, perforation requiring further surgery, inability to complete colonoscopy requiring barium enema.
[2023-04-08 07:55] VITALS: BP 114/73; BP 145/90; PULSE 75; RESP 18; TEMP 36.2; O2SAT 95
--- NOTE | 2023-04-08 07:56 | OP.COLON_ITS ---
Patient Name: Ramu Coffey Procedure Date: 04/08/2023 7:10 AM Date of : 1965 Age: 58 Procedure: Colonoscopy Indications: High risk colon cancer surveillance: Personal history of colonic polyps Providers: Clarice Gibbs MD Referring MD: Clarice Gibbs MD Medicines: Monitored Anesthesia Care Patient Profile: This is a 58 year old male. Last Colonoscopy: 2018. Complications: No immediate complications. Procedure: Pre-Anesthesia Assessment: - Prior to the procedure, a History and Physical was performed, and patient medications and allergies were reviewed. The patient's tolerance of previous anesthesia was also reviewed. The risks and benefits of the procedure and the sedation options and risks were discussed with the patient. All questions were answered, and informed consent was obtained. Prior Anticoagulants: The patient has taken no previous anticoagulant or antiplatelet agents. ASA Grade Assessment: Per anesthesia. After reviewing the risks and benefits, the patient was deemed in satisfactory condition to undergo the procedure. After I obtained informed consent, the scope was passed under direct vision. Throughout the procedure, the patient's blood pressure, pulse, and oxygen saturations were monitored continuously. The colonoscope was introduced through the anus and advanced to the cecum, identified by the appendiceal orifice, ileocecal valve and palpation. The colonoscopy was performed without difficulty. The patient tolerated the procedure well. The quality of the bowel preparation was good. Scope In: 7:31:49 AM Scope Withdrawal Time 0 hours 11 minutes 24 seconds Scope Out: 7:48:02 AM Total Procedure Duration Time 0 hours 16 minutes 13 seconds Findings: The entire examined colon appeared normal. Non-bleeding internal hemorrhoids were found. The hemorrhoids were Grade I (internal hemorrhoids that do not prolapse). Impression: - The entire examined colon is normal. - Non-bleeding internal hemorrhoids. - No specimens collected. Recommendation: - Discharge patient to home. - Resume previous diet. - Continue present medications. - Repeat colonoscopy in 10 years for screening purposes. Procedure Code(s): --- Professional --- G0105, PT, Colorectal cancer screening; colonoscopy on individual at high risk Diagnosis Code(s): --- Professional --- Z86.010, Personal history of colonic polyps CPT copyright 2017 [employer]. All rights reserved. The codes documented in this report are preliminary and upon cab driver review may be revised to meet current compliance requirements. MD Clarice Albright MD 04/08/2023 7:56:16 AM This report has been signed electronically. Number of Addenda: 0 Note Initiated On: 04/08/2023 7:10 AM
--- NOTE | 2023-04-08 07:57 | OP.CCLET_ITS ---
04/08/2023 Ash Mcpherson MD [address] [id number] Re : Colonoscopy procedure for Ramu Coffey Dear Dr. Mcpherson This procedure was performed on Saturday, April 08, 2023. My impressions and recommendations are as follows: Impressions : - The entire examined colon is normal. - Non-bleeding internal hemorrhoids. - No specimens collected. Recommendations : - Discharge patient to home. - Resume previous diet. - Continue present medications. - Repeat colonoscopy in 10 years for screening purposes. My findings are described in the full procedure note, which is enclosed. If I can be of further assistance, please feel free to contact me at Doctor phone number(s): , Work: . Sincerely, MD Clarice Albright MD 04/08/2023 7:56:16 AM This report has been signed electronically.
[2023-04-08 08:00] VITALS: BP 110/80; BP 145/90; PULSE 72; RESP 18; O2SAT 94
[2023-04-08 08:05] VITALS: BP 109/78; BP 145/90; PULSE 73; RESP 18; O2SAT 94
[2023-04-08 08:08] VITALS: BP 107/72; BP 145/90; PULSE 70; RESP 18; TEMP 36.5; O2SAT 96
[2023-04-08 08:22] VITALS: BP 145/90
== END 2023-04-08 08:34 | disposition home or self-care (01) ==
LOC: EN 06:24 → AC 06:27
PROVIDERS: PCP Family Medicine; Referring Provider Family Medicine; Visit Provider Surgery
PROC: 0DJD8ZZ Inspection of Lower Intestinal Tract, Via Natural or Artificial Opening Endoscopic (ICD-10-PCS; CPT 45378; principal; 2023-04-08 07:25)
DX: Z12.11 Encounter for screening for malignant neoplasm of colon (principal); Z86.010 Personal history of colon polyps; K64.0 First degree hemorrhoids; Z86.16 Personal history of COVID-19; Z80.0 Family history of malignant neoplasm of digestive organs; G47.33 Obstructive sleep apnea (adult) (pediatric); Z99.89 Dependence on other enabling machines and devices; E03.9 Hypothyroidism, unspecified
CPT/HCPCS: G0105; J7120; J2405

== ENCOUNTER → 2023-06-16 | Outpatient (CLI) | payer OTHER, SELFPAY ==
[2023-06-16 07:23] LABS: Erythrocyte Sedimentation Rate 2 mm/hr (0-20)
[2023-06-16 07:25] LABS: Absolute Lymphocyte Count 2.39 X10^3/uL (0.83-4.51); Absolute Neutrophil Count 2.4 X10^3/uL (2.0-7.7); Basophil# 0.05 X10^3/uL; Basophil% 0.9 % (0-1); Eosinophil# 0.13 X10^3/uL; Eosinophils% 2.4 % (0-5); Hematocrit 49.1 % (40-54); Hemoglobin 15.9 g/dL (13.0-16.5); Lymphocyte # 2.39 X10^3/ul (0.83-4.51); Lymphocyte % 43.4 % (19-41); Mean Corp Hgb Conc 32.4 g/dL (32-36); Mean Corpuscular Hgb 29.8 pg (27.0-32.0); Mean Corpuscular Volume 91.9 fL (80-94); Mean Platelet Vol. 9.5 fl (6.2-12.0); Monocyte# 0.56 X10^3/uL; Monocyte% 10.2 % (0-10); NRBC Flagged by Analyzer 0 % (0-5); Neutrophil # 2.36 X10^3/uL (2.7-7.7); Neutrophil % 42.7 % (47-70); Platelet Count 318 K/mm3 (150-450); RBC Distribution Width CV 13.2 % (11.6-14.6); RBC Distribution Width SD 44.7 fl (35.1-43.9); Red Blood Count 5.34 M/mm3 (4.6-6.2); White Blood Count 5.5 K/mm3 (4.4-11.0)
[2023-06-16 07:54] LABS: AST(SGOT) 16 U/L (15-37); Alanine Aminotransfer ALT/SGPT 26 U/L (16-61); Albumin, Serum 3.5 g/dL (3.2-5.0); Alkaline Phosphatase 90 U/L (45-117); Bilirubin, Direct 0.13 mg/dL (0.00-0.30); CRP < 2.90 mg/L (0.0-3.0); Creatinine, Serum 0.94 mg/dL (0.70-1.30); EST Glomerular Filtration Rate 87 mL/min (>60); Est Glom Filt Rate - Afr Amer 106 mL/min (>60); Globulin 3.4 g/dL (2.2-4.2); Protein, Total 6.9 g/dL (6.4-8.2)
== END | disposition home or self-care (01) ==
LOC: LAB 06:32
PROVIDERS: PCP Family Medicine
DX: L40.50 Arthropathic psoriasis, unspecified (principal); Z79.899 Other long term (current) drug therapy
CPT/HCPCS: 36415; 80076; 82565; 85025; 85652; 86140

== ENCOUNTER → 2023-09-15 | Outpatient (CLI) | payer OTHER, SELFPAY ==
--- OUTSIDE RECORDS SUMMARY | 2023-09-15 06:52 | XMS RPT_ITS | CCD ---
Author Name Unknown Address [address] [place] [address] Organization [facility] Care Team Providers Care Mixologist Name Role Phone Magda Vicente N Unavailable Magda Vicente N Unavailable Magda Vicente N Unavailable Medications Completed/Discontinued Medications Medication Drug Class(es) Dates Sig (Normalized) Sig (Original) ADALIMUMAB (3 sources) Tumor Necrosis Factor Debra Start: 05-07-2016 HUMIRA 10 MG/0.2ML PSKT ADALIMUMAB [id number] Nolberto Maloney Problems Active Problems Problem Classification Problem Date Documented Date Episodic/Chronic Joint disorders and dislocations; trauma-related (3 sources) Derangement of knee; Translations: [Other internal derangements of left knee] Onset: 05-07-2016 05-20-2016 Chronic Nervous system congenital anomalies (3 sources) Spina bifida; Translations: [Spina bifida, unspecified] Onset: 08-11-2016 08-16-2016 Chronic Osteoarthritis (3 sources) Localized, primary osteoarthritis; Translations: [Unilateral primary osteoarthritis, left knee] Onset: 05-07-2016 05-20-2016 Chronic Other connective tissue disease (2 sources) Presence of unspecified artificial knee joint; Translations: [Presence of unspecified artificial knee joint] Onset: 03-14-2017 03-23-2017 Chronic Unclassified (1 source) Postoperative physical examination; Translations: [Encounter for other specified surgical aftercare] Onset: 09-20-2016 09-20-2016 Past or Other Problems Problem Classification Problem Date Documented Da te Episodic/Chronic Other acquired deformities (3 sources) Spondylolisthesis , lumbar region; Translations: [Spondylolisthesi s, lumbar region] Onset: 08-11-2016 08-16-2016 Episodic Other aftercare (2 sources) Encounter for other specified surgical aftercare; Translations: [Encounter for other specified surgical aftercare] Onset: 09-20-2016 09-20-2016 Episodic Other non-traumatic joint disorders (3 sources) Knee pain; Translations: [Pain in left knee] Onset: 05-07-2016 05-07-2016 Episodic Spondylosis; intervertebral disc disorders; other back problems (3 sources) Low back pain; Translations: [Low back pain] Onset: 08-11-2016 08-11-2016 Episodic Results Test Name Value Interpretation Reference Range Facil ity Vital Signs Date Time Vital Sign Value Performing Clinician Faci lity 09-10-2016 06:29-0500 Body surface area Derived from formula 88.34 mL/min Magda Vicente [facility] Work Phone: Procedures Date Procedure Procedure Detail Performing Clinician Start: 08-11-2016 End: 09-01-2016 X-ray exam l-s spine bending Nolberto Maloney Work Phone: Start: 07-23-2016 End: 09-01-2016 Mri jnt of lwr extre w/o dye Nolberto Noni Maloney Work Phone: Start: 05-07-2016 End: 05-20-2016 Drain/inject, joint/bursa Nolberto Maloney Work Phone: Start: 05-07-2016 End: 09-01-2016 X-ray exam, knee, 4 or more Nolberto Maloney Work Phone: Plan of Treatment Date Care Activity Detail Author Start: 03-14-2017 End: 03-14-2017 X-ray exam, knee, 4 or more X-Ray, Knee [facility] Work Phone: Start: 10-18-2016 End: 10-18-2016 X-ray exam, knee, 4 or more X-Ray, Knee [facility] Work Phone: Start: 08-11-2016 End: 09-01-2016 X-ray exam l-s spine bending X-Ray, Spine, Lumbar, complete with bending views [facility] Work Phone: Start: 07-23-2016 End: 09-01-2016 Mri jnt of lwr extre w/o dye MRI Joint Lower Extremity [facility] Work Phone: Start: 05-07-2016 End: 09-01-2016 X-ray exam, knee, 4 or more X-Ray, Knee [facility] Work Phone: Patient Education BACK%20PAIN [facility] Work Phone: Additional Source Comments FOR RECORDS PERTAINING TO PATIENTS WHO ARE OR HAVE BEEN ENROLLED IN A CHEMICAL DEPENDENCY/SUBSTANCEABUSE PROGRAM, SOME INFORMATION MAY BE OMITTED. This clinical summary was aggregated from multiple sources. Caution should be exercised in using it in the provision of clinical care. This summary normalizes information from multiple sources, and as a consequence, information in this document may materially change the coding, format and clinical context of patient data. In addition, data may be omitted in some cases. CLINICAL DECISIONS SHOULD BE BASED ON THE PRIMARY CLINICAL RECORDS. [facility] provides no warranty or guarantee of the accuracy or completeness of information in this document.
[2023-09-15 07:02] LABS: Absolute Lymphocyte Count 2.13 X10^3/uL (0.83-4.51); Absolute Neutrophil Count 2.8 X10^3/uL (2.0-7.7); Basophil# 0.03 X10^3/uL; Basophil% 0.5 % (0-1); Eosinophil# 0.17 X10^3/uL; Hematocrit 45.7 % (40-54); Hemoglobin 16.1 g/dL (13.0-16.5); Lymphocyte # 2.13 X10^3/ul (0.83-4.51); Lymphocyte % 37.8 % (19-41); Mean Corp Hgb Conc 35.2 g/dL (32-36); Mean Corpuscular Hgb 31.3 pg (27.0-32.0); Mean Corpuscular Volume 88.9 fL (80-94); Mean Platelet Vol. 8.9 fl (6.2-12.0); Monocyte# 0.49 X10^3/uL; Monocyte% 8.7 % (0-10); NRBC Flagged by Analyzer 0 % (0-5); Neutrophil # 2.78 X10^3/uL (2.7-7.7); Neutrophil % 49.5 % (47-70); Platelet Count 318 K/mm3 (150-450); RBC Distribution Width CV 12.5 % (11.6-14.6); RBC Distribution Width SD 41.2 fl (35.1-43.9); Red Blood Count 5.14 M/mm3 (4.6-6.2); White Blood Count 5.6 K/mm3 (4.4-11.0)
[2023-09-15 07:34] LABS: AST(SGOT) 15 U/L (15-37); Alanine Aminotransfer ALT/SGPT 22 U/L (16-61); Albumin, Serum 3.4 g/dL (3.2-5.0); Alkaline Phosphatase 89 U/L (45-117); Bilirubin, Direct 0.11 mg/dL (0.00-0.30); CRP < 2.90 mg/L (0.0-3.0); Creatinine, Serum 0.98 mg/dL (0.70-1.30); EST Glomerular Filtration Rate 83 mL/min (>60); Est Glom Filt Rate - Afr Amer 100 mL/min (>60); Globulin 3.4 g/dL (2.2-4.2); Protein, Total 6.8 g/dL (6.4-8.2)
[2023-09-15 07:38] LABS: Erythrocyte Sedimentation Rate 4 mm/hr (0-20)
== END | disposition home or self-care (01) ==
LOC: LAB 06:32
PROVIDERS: PCP Family Medicine
DX: L40.50 Arthropathic psoriasis, unspecified (principal); Z79.899 Other long term (current) drug therapy
CPT/HCPCS: 36415; 80076; 82565; 85025; 85652; 86140

== ENCOUNTER → 2023-11-11 | Outpatient (CLI) | payer OTHER, SELFPAY ==
--- NOTE | 2023-11-11 13:00 | RAD_ITS ---
HISTORY: lbp -- Please do upright AP lateral flexion-extension. TECHNIQUE: XR Spine Lumbar Min 4 Views. COMPARISON: 06/30/2022. FINDINGS: VERTEBRAE: Vertebral body heights preserved. 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 L5 spondylolysis. Chronic shortening of the AP diameter of L5 compared to L4. ALIGNMENT: Unchanged grade 1 L5-S1 spondylolisthesis. INTERVERTEBRAL DISCS: Mild spondylosis of L5-S1. RAD/L/S Spine Min 4 Views IMPRESSION: No acute fracture or dislocation identified in the lumbar spine. Mild degenerative change of the lower lumbar spine, similar to prior. Electronically Signed: Celina Boucher MD at 12:23 EST ,
--- OUTSIDE RECORDS SUMMARY | 2023-11-11 13:25 | XMS RPT_ITS | CCD ---
Author Name Unknown Address [address] [place] [address] Organization [facility] Care Team Providers Care Flour Broker Name Role Phone Magda Vicente N Unavailable Magda Vicente N Unavailable Magda Vicente N Unavailable Medications Completed/Discontinued Medications Medication Drug Class(es) Dates Sig (Normalized) Sig (Original) ADALIMUMAB (3 sources) Tumor Necrosis Factor Debra Start: 05-07-2016 HUMIRA 10 MG/0.2ML PSKT ADALIMUMAB [id number] Nolberto Maloney Problems Active Problems Problem Classification [...] Derived from formula 88.34 mL/min Magda Vicente [facility] Work [...] exam, knee, 4 or more X-Ray, Knee [facility] Work Phone: Start: 10-18-2016 End: 10-18-2016 X-ray exam, knee, 4 or more X-Ray, Knee [facility] Work Phone: Start: 08-11-2016 End: 09-01-2016 X-ray exam l-s spine bending X-Ray, Spine, Lumbar, complete with bending views [facility] Work Phone: Start: 07-23-2016 End: 09-01-2016 Mri jnt of lwr extre w/o dye MRI Joint Lower Extremity [facility] Work Phone: Start: 05-07-2016 End: 09-01-2016 X-ray exam, knee, 4 or more X-Ray, Knee [facility] Work Phone: Patient Education BACK%20PAIN [facility] Work Phone: Additional [...] BE BASED ON THE PRIMARY CLINICAL RECORDS. [employer] provides no warranty or guarantee of the accuracy or completeness of information in this document.
== END | disposition home or self-care (01) ==
LOC: RAD 12:56
PROVIDERS: PCP Family Medicine; Referring Provider Orthopaedic Surgery Orthopaedic Surgery of the Spine; Visit Provider Orthopaedic Surgery Orthopaedic Surgery of the Spine
DX: M54.50 Low back pain, unspecified (principal)
CPT/HCPCS: 72110

== ENCOUNTER → 2023-12-08 | Outpatient (CLI) | payer OTHER, SELFPAY ==
--- NOTE | 2023-12-08 15:46 | MRI_ITS ---
STUDY: MRI LUMBAR SPINE WITHOUT CONTRAST REASON FOR EXAM: Male, 58 years old. PAIN, WORSENING LAST SEVERAL MONTHS, DOES NOT RADIATE TECHNIQUE: Standardized fat and water weighted pulse sequences were obtained in the sagittal and axial planes. COMPARISON: Lumbar spine radiographs November 11, 2023 FINDINGS: T12-L1: Normal endplates. Normal disc height, hydration and morphology. Normal bilateral facet joints. Normal central canal and bilateral lateral recesses. Normal bilateral intervertebral neural foramina. Normal lumbar lordosis. There is no substantial scoliosis. Normal conus medullaris that terminates at T12-L1 L1-2: Normal endplates. Normal disc height, hydration and morphology. Normal bilateral facet joints. Normal central canal and bilateral lateral recesses. Normal bilateral intervertebral neural foramina. L2-3: Normal endplates. Normal disc height, desiccation and minimal annular bulge.. Facet arthropathy and thickening of ligamenta flava.. Normal central canal and bilateral lateral recesses. Mild to moderate bilateral neural foraminal encroachment. L3-4: Normal endplates. Normal disc height, desiccation and minimal annular bulge.. Mild facet arthropathy and thickening of ligamenta flava. Normal central canal and bilateral lateral recesses. Mild to moderate bilateral neural foraminal stenosis. L4-5: Grade 1 retrolisthesis Normal endplates. Normal disc height, desiccation and mild bulging disc osteophyte complex.. Facet arthropathy. Mild narrowing of the central canal. Normal bilateral lateral recesses. Severe bilateral neural foraminal stenosis exaggerated by shortened pedicles L5-S1: Grade 1 spondylolisthesis and spondylolysis. Normal endplates. Normal disc height, desiccation mild bulging disc osteophyte complex. Normal bilateral facet joints. Normal central canal and bilateral lateral recesses. Moderate to severe bilateral neural foraminal stenosis. Normal visualized sacral ala. Normal visualized paraspinous soft tissue structures. No change since prior exam given inherent differences in imaging modalities MRI/Spine Lumbar (Routine) IMPRESSION: No evidence for acute fracture or other significant bony pathology. Retrolisthesis at L4-5 and spondylolisthesis L5-S1. Multilevel spinal stenosis secondary to disc disease and facet arthropathy most severe at L4-5 and L5-S1 Electronically Signed: Carlton Mclean MD at 17:10 EDT ,
== END | disposition home or self-care (01) ==
LOC: MRI 15:35
PROVIDERS: PCP Family Medicine; Referring Provider Orthopaedic Surgery Orthopaedic Surgery of the Spine; Visit Provider Orthopaedic Surgery Orthopaedic Surgery of the Spine
DX: M43.16 Spondylolisthesis, lumbar region (principal)
CPT/HCPCS: 72148

== ENCOUNTER 2023-12-21 16:00 | Outpatient (RCR) | payer OTHER, SELFPAY ==
--- NOTE | 2023-11-30 17:31 | HP.PTEVAL_ITS ---
Patient's Visit Information Visit Information Visit Information: SIMONE BARLOW is a 58 year old M referred to Physical Therapy by Dr. Nam Cifuentes MD with a diagnosis of SPONDYLOLISTHESIS ,LUMBAR. Date of Evaluation: 11/30/23 Physical Therapist: Rl Shanks PT, Cert MDT, OCS Visit Plan Frequency: 2x /Week Duration: 4 Weeks Plan: PT INTERVENTIONS DLS ,POSTURAL EX'S ,ACTIVITY MODIFICATION, MODALITIES AND SHEEBA EX'S Subjective Subjective: This 58 y/o male presents to physical therapy with lumbar pain. Patient has had lumbar pain 5-6 years . Patient symptoms progressively worse ~ 2 years ago . Recently ,symptoms more constant such as lifting and bending. Seen DR had x-rays Vertebral body heights preserved. 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 L5 spondylolysis.Chronic shortening of the AP diameter of L5 compared to L4.ALIGNMENT: Unchanged grade 1 L5-S1 spondylolisthesis.INTERVERTEBRAL DISCS: Mild spondylosis of L5-S1. Pain located center to left lumbar. Aggravating factors standing extended period of time ,slow walking ,lifting mod- heavy ,bending. Allevationg rest , aleve ,sitting. Coughing/sneezing-. Denies paresthesia/tingling. Bowel/bladder -. Patient sleeping good. Dr wants to do MRI. Patient symptoms affects QOL and function. Patient goals to decrease pain. 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 [employer] Pain Bilateral Back: Pain Intensity (Out of 10): 2 Pain Intensity Range: 10 Objective Objective: POSTURE: mild forward posture GAIT: reciprocal pattern PALPATION: unremarkable SYMMETRIES: align LUMBAR ROM: flexion min loss pain ,side glides min loss ,extension WFL MMT: quads/hamstrings 4/5 ,hip flexion 4/5 ,ankle 4/5 FLEXABLITY: hamstrings min tight Special Tests L/S Slump test left side: Negative L/S Slump test right side: Negative L/S Left Straight Leg Raise: Negative L/S Right Straight Leg Raise: Negative Lumbar Standing: Flexion - Mechanical Response: No effect Lumbar Standing: Flexion - Symptoms During Testing: Increases Lumbar Standing: Flexion - Symptoms After Testing: Worse Lumbar Standing: Extension - Mechanical Response: No effect Lumbar Standing: Extension - Symptoms During Testing: Increases Lumbar Standing: Extension - Symptoms After Testing: No worse Lumbar Standing: Right Side Glides - Mechanical Response: No effect Lumbar Standing: Right Side [place] - Symptoms During Testing: No effect Lumbar Standing: Right Side [place] - Symptoms After Testing: No effect Lumbar Standing: Left Side [place] - Mechanical Response: No effect Lumbar Standing: Left Side [place] - Symptoms During Testing: No effect Lumbar Standing: Left Side [place] - Symptoms After Testing: No effect Lumbar Lying: Flexion - Mechanical Response: No effect Lumbar Lying: Flexion - Symptoms During Testing: No effect Lumbar Lying: Flexion - Symptoms After Testing: No effect Lumbar Lying: Extension - Mechanical Response: No effect Lumbar Lying: Extension - Symptoms During Testing: Increases Lumbar Lying: Extension - Symptoms After Testing: No worse Balance/Special Test Scores Oswestry Low Back Score: 24 Goals Goal 1:: Patient to be I with HEP lumbar Goal Time Frame: 4-6 Weeks Goal 2:: Patient to improve lumbar ROM for function of recovery for job demands Goal Time Frame: 4-6 Weeks Goal 3:: Patient to demonstrate 50% improvement with with less pain and improved function Goal Time Frame: 4-6 Weeks Goal 4:: Patient to improve back oswestry score by 5 points to improve QOL Goal Time Frame: 4-6 Weeks Rehabilitation Potential Physical Therapy Diagnosis: This patient has lumbar pain possible disc with pain positioning and motioning testing worse with bending ,lifting and standing thus benefit from skilled PT Rehabilitation Potential: Good Anticipated Interventions Patient/Client Instruction: Educate patient on: Condition and Plan of Care For the Purpose of:: To decrease pain, To increase ROM, To improve muscle performance and motor function, To increase tolerance to activity/condition/position, To improve performance and independence with ADL's, To improve ability of physical actions for home/community/work/leisure, To improve health of tissue, To decrease soft tissue restriction, To increase flexibility/ROM, To reduce risk of recurrence and To improve tolerance to ADL's Therapeutic Exercise to Include: Strength training, Endurance training, Postural training, Flexibilty training and Dynamic Lumbar Stabilization For the Purpose of:: To decrease pain, To increase ROM, To improve muscle performance and motor function, To increase tolerance to activity/condition/position, To improve ability of physical actions for home/community/work/leisure, To improve health of tissue, To decrease soft tissue restriction and To increase flexibility/ROM TENS: Yes IF ES: Yes Cryotherapy (ice pack, ice massage): Yes Thermo therapy (hot pack): Yes Ultrasound (thermal/non thermal): Yes For the Purpose of:: To decrease pain, To increase ROM, To improve nutrient delivery to tissue, To increase oxygenation perfusion, To improve health of tissue and To decrease soft tissue restriction Text: Thank you for the opportunity to evaluate your patient. For Medicare and Medicare HMO plans, please review the plan of care and approve it. It will need to be FAXED BACK to us at [phone] for Medicare purposes. For Medicare only, by signing this I certify the plan of care. Please let me know if there are questions or concerns regarding this plan of care. Physician Signature: Date:
--- NOTE | 2024-04-06 09:48 | HP.PT.NRP ---
Patient Information Patient Information: SIMONE BARLOW was seen in my office for initial evaluation on 11/30/23. The following Plan of Care was established for this patient: POC Established Initial Frequency: 2x /Week Initial Duration: 4 Weeks Anticipated Interventions Patient/Client Instruction: Educate patient on: Condition and Plan of Care For the Purpose of:: To decrease pain, To increase ROM, To improve muscle performance and motor function, To increase tolerance to activity/condition/position, To improve performance and independence with ADL's, To improve ability of physical actions for home/community/work/leisure, To improve health of tissue, To decrease soft tissue restriction, To increase flexibility/ROM, To reduce risk of recurrence and To improve tolerance to ADL's Therapeutic Exercise to Include: Strength training, Endurance training, Postural training, Flexibilty training and Dynamic Lumbar Stabilization For the Purpose of:: To decrease pain, To increase ROM, To improve muscle performance and motor function, To increase tolerance to activity/condition/position, To improve ability of physical actions for home/community/work/leisure, To improve health of tissue, To decrease soft tissue restriction and To increase flexibility/ROM TENS: Yes IF ES: Yes Cryotherapy (ice pack, ice massage): Yes Thermo therapy (hot pack): Yes Ultrasound (thermal/non thermal): Yes For the Purpose of:: To decrease pain, To increase ROM, To improve nutrient delivery to tissue, To increase oxygenation perfusion, To improve health of tissue and To decrease soft tissue restriction Last Seen Last Seen: This patient was last seen in our office . Pertinent comments regarding their Physical therapy will appear below: Patient seen for PT for low back pain and HEP patient progressing with less pain with HEP At this point I will be discontinuing this patient from physical therapy. I would be happy to see this patient again in the future if found appropriate by the physician. Thank you! Rl Shanks, PT, Cert MDT, OCS Balance/Gait/Functional tests Balance/Special Test Scores Oswestry Low Back Score: 0
== END 2023-12-21 19:00 | disposition home or self-care (01) ==
LOC: PT 16:00
PROVIDERS: PCP Family Medicine; Referring Provider Orthopaedic Surgery Orthopaedic Surgery of the Spine; Visit Provider Orthopaedic Surgery Orthopaedic Surgery of the Spine
DX: M43.16 Spondylolisthesis, lumbar region (principal)
CPT/HCPCS: 97110; 97162

== ENCOUNTER → 2024-01-16 | Outpatient (CLI) | payer OTHER, SELFPAY ==
--- NOTE | 2024-01-16 11:39 | RAD_ITS ---
STUDY: X-RAY - LEFT HAND, ATTENTION INDEX FINGER REASON FOR EXAM: Male, 58 years old. Injury. TECHNIQUE: 3 views of the left index finger were obtained. COMPARISON: None. FINDINGS: Intact second metacarpal. There is degenerative arthrosis of the MCP and interphalangeal joints of the index finger. Intact proximal phalanx. Intact middle phalanx. Intact distal phalanx. There is no demonstrated fracture. 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 No demonstrated fracture. Electronically Signed: Robert Melendez MD at 11:54 EDT ,
== END | disposition home or self-care (01) ==
LOC: MTRAD 11:38
PROVIDERS: PCP Family Medicine; Referring Provider Physician Assistant; Visit Provider Physician Assistant
DX: M79.18 Myalgia, other site (principal)
CPT/HCPCS: 73140

== ENCOUNTER → 2024-01-25 | Outpatient (CLI) | payer OTHER, SELFPAY ==
[2024-01-25 10:10] LABS: Absolute Lymphocyte Count 1.73 X10^3/uL (0.83-4.51); Absolute Neutrophil Count 2.9 X10^3/uL (2.0-7.7); Basophil# 0.04 X10^3/uL; Basophil% 0.8 % (0-1); Eosinophil# 0.14 X10^3/uL; Eosinophils% 2.6 % (0-5); Hematocrit 47.9 % (40-54); Lymphocyte # 1.73 X10^3/ul (0.83-4.51); Lymphocyte % 32.7 % (19-41); Mean Corp Hgb Conc 33.4 g/dL (32-36); Mean Corpuscular Hgb 30.4 pg (27.0-32.0); Mean Corpuscular Volume 90.9 fL (80-94); Mean Platelet Vol. 9.7 fl (6.2-12.0); Monocyte% 9.5 % (0-10); NRBC Flagged by Analyzer 0 % (0-5); Neutrophil # 2.86 X10^3/uL (2.7-7.7); Platelet Count 310 K/mm3 (150-450); RBC Distribution Width CV 12.6 % (11.6-14.6); Red Blood Count 5.27 M/mm3 (4.6-6.2); White Blood Count 5.3 K/mm3 (4.4-11.0)
[2024-01-25 10:38] LABS: Erythrocyte Sedimentation Rate 2 mm/hr (0-20)
[2024-01-25 11:31] LABS: AST(SGOT) 21 U/L (15-37); Alanine Aminotransfer ALT/SGPT 25 U/L (16-61); Albumin, Serum 3.6 g/dL (3.2-5.0); Alkaline Phosphatase 91 U/L (45-117); Bilirubin, Direct 0.13 mg/dL (0.00-0.30); CRP < 2.90 mg/L (0.0-3.0); Creatinine, Serum 0.89 mg/dL (0.70-1.30); EST Glomerular Filtration Rate 93 mL/min (>60); Est Glom Filt Rate - Afr Amer 112 mL/min (>60); Globulin 3.2 g/dL (2.2-4.2); Protein, Total 6.8 g/dL (6.4-8.2)
== END | disposition home or self-care (01) ==
LOC: LAB 09:03
PROVIDERS: PCP Family Medicine; Referring Provider Internal Medicine Rheumatology; Visit Provider Internal Medicine Rheumatology
DX: L40.50 Arthropathic psoriasis, unspecified (principal); Z79.899 Other long term (current) drug therapy
CPT/HCPCS: 36415; 80076; 82565; 85025; 85652; 86140

== ENCOUNTER → 2024-05-03 | Outpatient (CLI) | payer OTHER, SELFPAY ==
[2024-05-03 07:46] LABS: CRP < 2.90 mg/L (0.0-3.0)
[2024-05-03 08:51] LABS: Erythrocyte Sedimentation Rate 1 mm/hr (0-20)
== END | disposition home or self-care (01) ==
LOC: LAB 06:23
PROVIDERS: PCP Family Medicine; Referring Provider Internal Medicine Rheumatology; Visit Provider Internal Medicine Rheumatology
DX: L40.50 Arthropathic psoriasis, unspecified (principal); Z79.899 Other long term (current) drug therapy
CPT/HCPCS: 36415; 85652; 86140

== ENCOUNTER → 2024-08-08 | Outpatient (CLI) | payer OTHER, SELFPAY ==
[2024-08-08 12:03] LABS: Erythrocyte Sedimentation Rate < 1 mm/hr (0-20)
[2024-08-08 12:06] LABS: Absolute Lymphocyte Count 2.28 X10^3/uL (0.83-4.51); Absolute Neutrophil Count 3.6 X10^3/uL (2.0-7.7); Basophil# 0.05 X10^3/uL; Basophil% 0.7 % (0-1); Eosinophil# 0.11 X10^3/uL; Eosinophils% 1.6 % (0-5); Hematocrit 48.7 % (40-54); Hemoglobin 16.5 g/dL (13.0-16.5); Lymphocyte # 2.28 X10^3/ul (0.83-4.51); Mean Corp Hgb Conc 33.9 g/dL (32-36); Mean Corpuscular Hgb 30.6 pg (27.0-32.0); Mean Corpuscular Volume 90.2 fL (80-94); Mean Platelet Vol. 9.6 fl (6.2-12.0); Monocyte# 0.66 X10^3/uL; Monocyte% 9.9 % (0-10); NRBC Flagged by Analyzer 0 % (0-5); Neutrophil # 3.56 X10^3/uL (2.7-7.7); Neutrophil % 53.2 % (47-70); Platelet Count 308 K/mm3 (150-450); RBC Distribution Width CV 12.8 % (11.6-14.6); RBC Distribution Width SD 42.4 fl (35.1-43.9); White Blood Count 6.7 K/mm3 (4.4-11.0)
[2024-08-08 12:50] LABS: AST(SGOT) 24 U/L (15-37); Alanine Aminotransfer ALT/SGPT 29 U/L (16-61); Albumin, Serum 3.9 g/dL (3.2-5.0); Alkaline Phosphatase 95 U/L (45-117); Bilirubin, Direct 0.14 mg/dL (0.00-0.30); CRP < 2.90 mg/L (0.0-3.0); Creatinine, Serum 0.98 mg/dL (0.70-1.30); EST Glomerular Filtration Rate 83 mL/min (>60); Est Glom Filt Rate - Afr Amer 100 mL/min (>60); Globulin 3.2 g/dL (2.2-4.2); Protein, Total 7.1 g/dL (6.4-8.2)
== END | disposition home or self-care (01) ==
LOC: LAB 11:13
PROVIDERS: PCP Family Medicine
DX: L40.50 Arthropathic psoriasis, unspecified (principal); Z79.899 Other long term (current) drug therapy
CPT/HCPCS: 36415; 80076; 82565; 85025; 85652; 86140

== ENCOUNTER → 2024-11-07 | Outpatient (CLI) | payer OTHER, SELFPAY ==
[2024-11-07 11:46] LABS: Erythrocyte Sedimentation Rate 1 mm/hr (0-20)
[2024-11-07 11:51] LABS: Absolute Lymphocyte Count 2.36 X10^3/uL (0.83-4.51); Absolute Neutrophil Count 4.1 X10^3/uL (2.0-7.7); Basophil# 0.07 X10^3/uL; Eosinophil# 0.13 X10^3/uL; Eosinophils% 1.8 % (0-5); Hematocrit 47.3 % (40-54); Lymphocyte # 2.36 X10^3/ul (0.83-4.51); Lymphocyte % 32.2 % (19-41); Mean Corp Hgb Conc 33.8 g/dL (32-36); Mean Corpuscular Hgb 30.6 pg (27.0-32.0); Mean Corpuscular Volume 90.4 fL (80-94); Mean Platelet Vol. 9.4 fl (6.2-12.0); Monocyte# 0.69 X10^3/uL; Monocyte% 9.4 % (0-10); NRBC Flagged by Analyzer 0 % (0-5); Neutrophil # 4.05 X10^3/uL (2.7-7.7); Neutrophil % 55.1 % (47-70); Platelet Count 338 K/mm3 (150-450); RBC Distribution Width CV 13.1 % (11.6-14.6); RBC Distribution Width SD 43.1 fl (35.1-43.9); Red Blood Count 5.23 M/mm3 (4.6-6.2); White Blood Count 7.3 K/mm3 (4.4-11.0)
[2024-11-07 12:42] LABS: AST(SGOT) 27 U/L (<=37); Alanine Aminotransfer ALT/SGPT 19 U/L (<=46); Albumin, Serum 4.2 g/dL (3.4-4.8); Alkaline Phosphatase 97 U/L (40-129); Bilirubin, Direct 0.17 mg/dL (0.00-0.30); CRP < 3.00 mg/L (0.0-3.0); Creatinine, Serum 0.95 mg/dL (0.70-1.20); EST Glomerular Filtration Rate 91 (>60); Globulin 2.7 g/dL (2.2-4.2); Protein, Total 6.8 g/dL (5.9-8.4); Total Bilirubin 0.49 mg/dL (0.00-1.30)
== END | disposition home or self-care (01) ==
LOC: LAB 10:52
PROVIDERS: PCP Family Medicine
DX: L40.50 Arthropathic psoriasis, unspecified (principal); Z79.899 Other long term (current) drug therapy
CPT/HCPCS: 36415; 80076; 82565; 85025; 85652; 86140

== ENCOUNTER → 2024-12-12 | Outpatient (CLI) | payer OTHER, SELFPAY ==
[2024-12-12 17:59] LABS: Absolute Lymphocyte Count 2.48 X10^3/uL (0.83-4.51); Absolute Neutrophil Count 3.7 X10^3/uL (2.0-7.7); Basophil# 0.07 X10^3/uL; Eosinophil# 0.15 X10^3/uL; Eosinophils% 2.1 % (0-5); Hematocrit 48.3 % (40-54); Hemoglobin 16.5 g/dL (13.0-16.5); Lymphocyte # 2.48 X10^3/ul (0.83-4.51); Lymphocyte % 34.1 % (19-41); Mean Corp Hgb Conc 34.2 g/dL (32-36); Mean Corpuscular Hgb 30.7 pg (27.0-32.0); Mean Corpuscular Volume 89.8 fL (80-94); Mean Platelet Vol. 9.8 fl (6.2-12.0); Monocyte# 0.78 X10^3/uL; Monocyte% 10.7 % (0-10); NRBC Flagged by Analyzer 0 % (0-5); Neutrophil # 3.74 X10^3/uL (2.7-7.7); Neutrophil % 51.4 % (47-70); Platelet Count 346 K/mm3 (150-450); RBC Distribution Width CV 12.7 % (11.6-14.6); RBC Distribution Width SD 41.6 fl (35.1-43.9); Red Blood Count 5.38 M/mm3 (4.6-6.2); White Blood Count 7.3 K/mm3 (4.4-11.0)
[2024-12-12 18:19] LABS: Anion Gap 11 (5-15); BUN 16 mg/dL (4-19); BUN/Creat Ratio 15.7 RATIO (10-20); Carbon Dioxide 24.9 mmol/L (21.0-32.0); Chloride 103 mmol/L (98-108); Creatinine, Serum 1.03 mg/dL (0.70-1.20); EST Glomerular Filtration Rate 83 (>60); Glucose 93 mg/dL (70-99); Potassium 4.1 mmol/L (3.3-5.1); Sodium Level 138 mmol/L (133-145)
[2024-12-12 19:55] LABS: Free T3 2.9 pg/mL (2.18-3.98)
[2024-12-12 20:55] LABS: Cholesterol 191 mg/dL (<=200); High Density Lipoprotein 48 mg/dL; Low Density Lipoprotein Calc. 109 mg/dL; Triglycerides 171 mg/dL; Very Low Density Lipoprotein 34 mg/dL (5-40); cholesterol:hdl ratio screen 3.98
== END | disposition home or self-care (01) ==
LOC: MTLAB 16:01
PROVIDERS: PCP Family Medicine; Referring Provider Family Medicine; Visit Provider Family Medicine
DX: E03.9 Hypothyroidism, unspecified (principal); R06.02 Shortness of breath
CPT/HCPCS: 36415; 80048; 80061; 84439; 84443; 84481; 85025

== ENCOUNTER → 2024-12-26 | Outpatient (CLI) | payer OTHER, SELFPAY ==
--- NOTE | 2024-12-26 16:59 | STRESSREP_ITS ---
Stress Test Report Exercise myocardial perfusion stress test. 59-year-old man with a history of chest pain Stress protocol: Resting EKG demonstrates [normal sinus rhythm with a rate of 70] bpm resting blood pressure is [134/82] mmHg. The patient exercised according to the regular Gomez protocol for a total duration of [6 minutes and 17 seconds] attaining a m aximum heart rate of [150 ] bpm which was [92%] of maximum predicted heart rate; the maximum workload was [7.8 ] metabolic equivalents. At rest there were no ST or T wave changes noted to suggest ischemia and at peak exercise upsloping ST changes only were noted which did not meet the criteria for ischemia. No clinical angina was noted the test was terminated due to the target heart rate being achieved/fatigue. The peak blood pressure was [186/80] mmHg. Rate- pressure product was [26,200]. Myocardial perfusion protocol. [11.3] mCi of technetium 99m sestamibi was injected at rest. The patient exercised according to regular Gomez protocol for total duration of [6 minutes and 17 seconds] and at peak exercise [33.7] mCi of technetium 99m sestamibi was injected stress images were obtained stress and rest images were reconstructed in comparing the short axis vertical long and horizontal long axis. Gated images were also obtained. Perfusion SPECT analysis: Review of the stress images demonstrate normal uptake of tracer noted in all areas of the myocardium. The resting images similarly demonstrate normal uptake of tracer noted in all areas of the myocardium. No areas of reversibility are noted to suggest ischemia no previous infarct was noted. Gated SPECT analysis: The gated ejection fraction is [65%]. Conclusion: [Normal] exercise myocardial perfusion stress test at a [moderate workload.] [Preserved] ejection fraction.
--- NOTE | 2024-12-26 16:59 | STRESSREP ---
Stress Test Report Exercise myocardial perfusion stress test. 59-year-old man with a history of chest pain Stress protocol: Resting EKG demonstrates normal sinus rhythm with a rate of 72 bpm resting blood pressure is 116/82 mmHg. The patient exercised according to the regular Gomez protocol for a total duration of 9 minutes attaining a maximum heart rate of 153 bpm which was 95% of maximum predicted heart rate; the maximum workload was 10.1 metabolic equivalents. At rest there were no ST or T wave changes noted to suggest ischemia and at peak exercise upsloping ST changes only were noted which did not meet the criteria for ischemia. No clinical angina was noted the test was terminated due to the target heart rate being achieved/fatigue. The peak blood pressure was 174/86 mmHg. Rate-pressure product was 26,100. Myocardial perfusion protocol. 14.1 mCi of technetium 99m sestamibi was injected at rest. The patient exercised according to regular Ogmez protocol for total duration of 9 minutes and at peak exercise 42.9 mCi of technetium 99m sestamibi was injected stress images were obtained stress and rest images were reconstructed in comparing the short axis vertical long and horizontal long axis. Gated images were also obtained. Perfusion SPECT analysis: Review of the stress images demonstrate normal uptake of tracer noted in all areas of the myocardium. The resting images similarly demonstrate normal uptake of tracer noted in all areas of the myocardium. No areas of reversibility are noted to suggest ischemia no previous infarct was noted. Gated SPECT analysis: The gated ejection fraction is 67%. Conclusion: Normal exercise myocardial perfusion stress test at a high workload Preserved ejection fraction.
== END | disposition home or self-care (01) ==
LOC: CVS 06:01
PROVIDERS: PCP Family Medicine; Referring Provider Family Medicine; Visit Provider Family Medicine
DX: R07.9 Chest pain, unspecified (principal)
CPT/HCPCS: 78452; 93017; A9500; A4216

== ENCOUNTER → 2025-01-07 | Outpatient (CLI) | payer OTHER, SELFPAY ==
--- NOTE | 2025-01-07 16:32 | LES_PTH ---
PATIENT: SIMONE BARLOW LOC: [facility] U#:[id number] AGE/SX: 59/M ROOM: RE01/07/[address]: DINORA Kapadia : 1965 BED: DIS: 01/07/2025 SPEC #: [id number] RECD: 01/07/25 17:00 STATUS: KIARA CLAIRE #: [id number] TIA: 01/07/25 16:[address]: Jose Denson DEPT: SURGICAL PATHOLOGY RECD BY: Bryant Boyle ENTERED: 01/08/25 09:40 SP TYPE: Lesion OTHR DR: Dr. Ash Mcpherson MD Tissues: A - Skin of back, NOS Procedures: Surgery Specimen Level IV HEADER OPERATION: Shave removal PRE-OP DIAGNOSIS: Irregular brown macule, atypical nevus TISSUE SUBMITTED: A- Left inferior lateral upper back lesion MICROSCOPIC DIAGNOSIS A. Skin, left inferior lateral upper back, irregular brown macule, atypical nevus, shave biopsy: * Compound melanocytic nevus (deeper sections examined). MICROSCOPIC DESCRIPTION Slides are reviewed. GROSS DESCRIPTION A. Received in formalin in a container labeled with the patient's name, date of , and left inferior lateral upper back is an unoriented. irregular white-jones skin shave measuring 0.4 x 0.3 cm with a depth of 0.1 cm. The epidermis is notable for a hyperpigmented 0.3 x 0.2 cm macule with irregular borders that abuts the peripheral margin. The deep margin is inked green, and the specimen is submitted entirely in A1. [facility] 01-08-2025 CPT:09787
== END | disposition home or self-care (01) ==
LOC: LABSPEC 16:53
PROVIDERS: PCP Family Medicine; Referring Provider Physician Assistant Medical; Visit Provider Physician Assistant Medical
DX: D48.5 Neoplasm of uncertain behavior of skin (principal)
CPT/HCPCS: 88305

== ENCOUNTER → 2025-02-06 | Outpatient (CLI) | payer OTHER, SELFPAY ==
--- OUTSIDE RECORDS SUMMARY | 2025-02-06 06:30 | XMS RPT_ITS | CCD ---
Author Organization [facility] CliniSyar Care Team Providers Care Cleaning Attendant Name Role Phone Magda Vicente N Unavailable Magda Vicente N Unavailable Magda Vicente N Unavailable Dr. Ash Mcpherson Primary Care Provider Dr. Ash Mcpherson Referring Provider Dr. Jc Hoyos Attending Provider BENOIT King Attending Provider [phone] Ash Mcpherson Primary Care Provider Dr. Ash Mcpherson Referring Provider BENOIT Joseph Attending Provider Khadra MAYER, BERNARDINO Guzman Attending Provider Dr. Ash Mcpherson Primary Care Provider Dr. Ash Mcpherson Referring Provider Dr. Ash Mcpherson Other Provider Dr. Augustus Merino Attending Provider Dr. Dk Caruso Attending Provider Dr. Ash Mcpherson Primary Care Provider Dr. Ash Mcpherson Referring Provider Dr. Ash Mcpherson Other Provider Dr. Augustus Merino Attending Provider Dr. Dk Caruso Attending Provider BENOIT Joseph Attending Provider Dr. Ash Mcpherson Primary Care Provider Ky, Dr. Aleman Referring Provider BENOIT Joseph Attending Provider Dr. Dk Caruso Attending Provider MD Dk Braga Referring Provider Unanm ilable Ky, Dr. Aleman Primary Care Provider Nayeli Shanks Attending Provider Unavailable Ky, Dr. Aleman Referring Provider Dr. Clarice Gibbs Attending Provider Sai, Dr. Oneil Other Provider Dr. Dk Caruso Attending Provider Ky, Dr. Aleman Primary Care Provider Ky, Dr. Aleman Referring Provider Dr. Dk Caruso Attending Provider Ky, Dr. Aleman Primary Care Provider Dr. Ash Mcpherson Referring Provider Dr. Zenobia Paul Attending Provider Dr. Nam Cifuentes Attending Provider Dr. Ash Mcpherson MD Primary Care Provider BHUPENDRA NICHOLE Attending Provider [phone] BHUPENDRA NICHOLE Referring Provider Dr. Ash Mcpherson MD Primary Care Provider BHUPENDRA NICHOLE Attending Provider Dr. Ash Mcpherson MD Attending Provider Ky REHMAN, Dr. Aleman Referring Provider Spencer Joseph Attending Provider Ky REHMAN, Dr. Aleman Other Provider Jimbo REHMAN, Dr. Guillen Attending Provider Jose Larios Attending Provider Jose Larios Referring Provider [phone] Jose Caro Referring Unavailable Jose Caro Attending Unavailable Mcpherson, Ash Primary Care Unavailable Jose Larios Referring Unavailable Jose Larios Attending Unavailable Mcpherson, Ash Primary Care Unavailable Mcpherson, Ash Primary Care Unavailable Mcpherson, Ash Referring Unavailable Mcpherson, Ash Attending Unavailable Mcpherson, Ash Attending Unavailable Mcpherson, Ash Primary Care Unavailable Mcpherson, Ash Referring Unavailable Assessment, Health Risk Referring Unavaila ble Assessment, Health Risk Attending Unavaila ble Mcpherson, Ash Primary Care Unavailable CALDERON GODOY Referring Unavailable CALDERON GODOY Attending Unavailable Mcpherson, Ash Primary Care Unavailable Spencre Joseph Attending Unavailable Mcpherson, Ash Primary Care Unavailable Mcpherson, Ash Referring Unavailable Spencer Joseph Attending Unavailable Mcpherson, Ash Primary Care Unavailable Mcpherson, Ash Referring Unavailable Dk Caruso Attending Unavailable Mcpherson, Ash Referring Unavailable Mcpherson, Ash Primary Care Unavailable Mcpherson, Ash Referring Unavailable Mcpherson, Ash Primary Care Unavailable Wilmer Choi Attending Unavailable Mcpherson, Ash Consulting Unavailable KHAVARI, CALDERON Attending Unavailable Mcpherson, Ash Primary Care Unavailable Jose Caro Referring Unavailable Tamy, Jose Attending Unavailable Mcpherson, Ash Primary Care Unavailable Medications Current Medications Medication Drug Class(es) Dates Sig (Normalized) Sig (Original) adalimumab (19 sources) Tumor Necrosis Factor Debra Start: 05-07-2016 Adalimumab Active 40 MG SQ DIRECTED May 06, 2016 11:00pm Start: 05-07-2016 Adalimumab Act ziyad 40 MG SQ DIRECTED May 07, 2016 12:00am Start: 05-07-2016 Adalimumab Act ziyad 40 MG SQ DIRECTED May 06, 2016 11:00pm Start: 05-07-2016 HUMIRA 10 MG/0 .2ML PSKT ADALIMUMAB [id number] Nolberto Maloney Start: 05-07-2016 HUMIRA 10 MG/0 .2ML PSKT ADALIMUMAB [id number] Nolberto Maloney Adalimumab 10 MG/0.2 ML syringe kit (4 sources) Start: 05-07-2016 Adalimumab 10 MG/0.2 ML syringe kit Active 40 mg SQ DIRECTED May 07, 2016 12:00am benzonatate 200 mg oral capsule (20 sources) Non-narcotic Antitussive Start: 12-17-2024 take 1 capsule by mouth three times daily as needed for cough Benzonatate 200 mg capsule Active 200 mg PO THREE TIMES A DAY as needed for cough December 17, 2024 12:00am Start: 08-18-2022 End: 10-21-2022 take 1 capsule by mouth three times daily as needed for cough Benzonatate 200 mg capsule Discontinued 200 mg PO THREE TIMES A DAY as needed for cough August 18, 2022 1:00am October 21, 2022 9:01am Start: 12-27-2021 End: 06-28-2022 take 1 capsule by mouth three times daily as needed for cough Benzonatate 200 mg capsule Discontinued 200 mg PO THREE TIMES A DAY as needed for cough December 27, 2021 12:00am June 28, 2022 9:52am Start: 08-26-2021 End: 12-27-2021 Benzonatate 100 mg capsule Discontinued 100 mg PO 2 to 3 times per day as needed for cough August 26, 2021 1:00am December 27, 2021 8:11am Start: 08-31-2017 End: 01-13-2018 take 1 capsule by mouth three times daily as needed for cough Benzonatate 200 mg capsule Discontinued 200 mg PO THREE TIMES A DAY as needed for cough August 31, 2017 1:00am January 13, 2018 1:34pm levothyroxine sodium 0.1 mg oral tablet (20 sources) l-Thyroxine Start: 05-07-2016 take 1 tablet by mouth once daily Levothyroxine 100 MCG tablet Active 100 ug PO DAILY May 07, 2016 12:00am methylPREDNISolone 4 mg oral tablet (6 sources) Corticosteroid Start: 12-17-2024 take 1 tablet by mouth once Methylprednisolone (Medrol (Jamar)) 4 mg tablets,dose pack Active 0 PO per package directions December 17, 2024 12:00am PO PER PKG DIR Start: 08-11-2016 METHYLPREDNISO LONE 4 MG TBPK take as directed METHYLPREDNISOLONE [id number] Nolberto Maloney Start: 08-11-2016 METHYLPREDNISO LONE 4 MG TBPK take as directed METHYLPREDNISOLONE [id number] Nolberto Maloney Completed/Discontinued Medications Medication Drug Class(es) Dates Sig (Normalized) Sig (Original) acetaminophen 325 mg / oxyCODONE hydrochloride 5 mg oral tablet (20 sources) Opioid Agonist Start: 09-10-2016 End: 09-10-2016 Oxycodone-Acetamino phen 1 TABLET tablet Discontinued 1 - 2 {tbl} PO EVERY 4 HOURS NEEDED as needed for Pain 60 September 10, 2016 1:00am September 10, 2016 6:42pm Start: 09-10-2016 End: 09-10-2016 take 1 tablet by mouth every four hours as needed Oxycodone-Acetaminophen Discontinued 1 - 2 TABLET PO EVERY 4 HOURS NEEDED 60 September 10, 2016 1:00am September 10, 2016 6:42pm Start: 08-31-2016 End: 08-18-2017 Oxycodone-Acetaminophen 1 TA BLET tablet Discontinued 1 - 2 {tbl} PO EVERY 6 HOURS NEEDED as needed for Pain August 31, 2016 1:00am August 18, 2017 12:44pm Start: 08-31-2016 End: 08-18-2017 take 1 tablet by mouth every six hours as needed Oxycodone-Acetaminophen Discontinued 1 - 2 TABLET PO EVERY 6 HOURS NEEDED August 31, 2016 1:00am August 18, 2017 12:44pm amoxicillin 875 mg / clavulanate 125 mg oral tablet (20 sources) Penicillin-class Antibacterial Start: 12-27-2021 End: 01-03-2022 Amoxicillin-Pot Clavulanate 875-125 mg tablet Discontinued 1 {tbl} PO TWICE A DAY 14 December 27, 2021 12:00am January 02, 2022 12:00am January 03, 2022 12:04am Start: 12-27-2021 End: 01-03-2022 take 1 tablet by mouth twice daily Amoxicillin-Pot Clavulanate Discontinued 1 TABLET PO TWICE A DAY 14 December 27, 2021 12:00am January 03, 2022 12:04am Start: 04-24-2020 End: 05-04-2020 take 1 mL by mouth every twelve hours Amoxicillin-Pot Clavulanate 400-57 mg/5 mL suspension for reconstitution Discontinued 10 mL PO Q12H 200 April 24, 2020 12:00am May 03, 2020 12:00am May 04, 2020 12:02am Start: 04-24-2020 End: 05-04-2020 take 1 mL by mouth every twelve hours Amoxicillin-Pot Clavulanate Discontinued 10 ML PO Q12H 200 April 24, 2020 12:00am May 04, 2020 12:02am aspirin 325 mg delayed release oral tablet (20 sources) Platelet Aggregation Inhibitor, Nonsteroidal Anti-inflammatory Drug Start: 09-10-2016 End: 08-18-2017 take 1 tablet by mouth twice daily Aspirin 325 MG tablet Discontinued 325 mg PO TWICE A DAY September 10, 2016 1:00am August 18, 2017 12:44pm 12 hr buPROPion hydrochloride 150 mg extended release oral tablet (20 sources) Aminoketone Start: 05-07-2016 End: 06-23-2021 Bupropion Hcl 150 MG tablet extended release 12 hr Discontinued 300 mg PO DAILY May 07, 2016 12:00am June 23, 2021 9:22am Start: 05-07-2016 End: 06-23-2021 take 300 mg by mouth once daily Bupropion Hcl Discontinued 300 MG PO DAILY May 07, 2016 12:00am June 23, 2021 9:22am Start: 05-07-2016 BUPROPION HCL ER (SR) 150 MG [id number] BUPROPION HCL [id number] Nolberto Maloney diazePAM 5 mg oral tablet (20 sources) Benzodiazepine Start: 09-11-2016 End: 08-18-2017 take 1 tablet by mouth three times daily as needed for muscle spasms Diazepam 5 MG tablet Discontinued 5 mg PO 3 TIMES DAILY NEEDED as needed for Spasms September 11, 2016 12:14pm August 18, 2017 12:44pm docusate sodium 100 mg oral tablet (20 sources) Start: 09-20-2016 take 2 capsules by mouth twice daily as needed COLACE 100 MG CAPS 2 po twice daily as needed DOCUSATE SODIUM [id number] Nolberto Maloney Start: 09-20-2016 take 2 capsules by m outh twice daily as needed COLACE 100 MG CAPS 2 po twice daily as needed DOCUSATE SODIUM [id number] Nolberto Maloney Start: 09-10-2016 End: 08-19-2017 take 1 capsule by mouth twice daily as needed for constipation Docusate Sodium 100 MG capsule Discontinued 100 mg PO TWICE DAILY NEEDED as needed for Constipation September 10, 2016 1:00am August 19, 2017 4:31pm DULoxetine 30 mg delayed release oral capsule (20 sources) Serotonin and Norepinephrine Reuptake Inhibitor Start: 10-21-2022 End: 10-21-2022 take 1 capsule by mouth once daily Duloxetine 30 mg capsule,delayed release(DR/EC) Discontinued 30 mg PO DAILY October 21, 2022 9:24am October 21, 2022 9:35am Start: 07-28-2022 End: 10-21-2022 take 1 capsule by mouth every other day Duloxetine 30 mg capsule,delayed release(DR/EC) Discontinued 30 mg PO .COMPLEX July 28, 2022 1:00am October 21, 2022 9:24am 30 mg orally every other day Start: 07-08-2022 End: 07-28-2022 take 1 capsule by mouth every other day Duloxetine 20 mg capsule,delayed release(DR/EC) Discontinued 20 mg PO .COMPLEX July 08, 2022 12:00am July 28, 2022 7:11pm 20 mg orally every other day Start: 06-28-2022 End: 07-08-2022 take 1 capsule by mouth at bedtime Duloxetine 30 mg capsule,delayed release(DR/EC) Discontinued 30 mg PO AT BEDTIME June 28, 2022 12:00am July 08, 2022 11:16am Start: 06-28-2022 End: 07-08-2022 take 1 capsule by mouth once daily at bedtime Duloxetine 60 mg capsule,delayed release(DR/EC) Discontinued 60 mg PO AT BEDTIME June 28, 2022 12:00am July 08, 2022 11:16am Begin after completing one week course of duloxetine 30mg nightly. famotidine 20 mg oral tablet (20 sources) Histamine-2 Receptor Antagonist Start: 09-10-2016 End: 08-19-2017 take 1 tablet by mouth twice daily Famotidine 20 MG tablet Discontinued 20 mg PO TWICE A DAY September 10, 2016 1:00am August 19, 2017 4:31pm Lactobacillus Combination No.4 (16 sources) Start: 03-13-2018 End: 04-24-2020 Lactobacillus Combination No.4 Discontinued 1 EACH PO DAILY March 13, 2018 1:25pm April 24, 2020 6:47am Start: 03-13-2018 End: 04-24-2020 Lactobacillus Combination No .4 Discontinued 1 EACH PO DAILY March 12, 2018 11:00pm April 24, 2020 5:47am Start: 03-13-2018 End: 04-24-2020 Lactobacillus Combination No .4 Discontinued 1 EACH PO DAILY March 13, 2018 12:00am April 24, 2020 6:47am Lactobacillus Combination No.4 1 EACH capsule (4 sources) Start: 03-13-2018 End: 04-24-2020 take 1 capsule by mouth once daily Lactobacillus Combination No.4 1 EACH capsule Discontinued 1 NMA PO DAILY March 13, 2018 12:00am April 24, 2020 6:47am meloxicam 15 mg oral tablet (20 sources) Nonsteroidal Anti-inflammatory Drug Start: 08-18-2017 End: 08-19-2017 take 1 tablet by mouth once daily Meloxicam 15 mg tablet Discontinued 15 mg PO daily August 18, 2017 1:00am August 19, 2017 4:31pm Start: 05-07-2016 MELOXICAM 15 M G TABS MELOXICAM [id number] Nolberto Noni Maloney Nirmatrelvir-Ritonavir (13 sources) Start: 08-18-2022 End: 10-21-2022 Nirmatrelvir-Ritonavir (Paxl ovid (Eua)) 300 mg (150 mg x 2)-100 mg tablets,dose pack Discontinued 0 PO .COMPLEX August 18, 2022 12:00am October 21, 2022 8:02am take TWO 150 mg tablets of nirmatrelvir with ONE 100 mg tablet of ritonavir twice daily for 5 days PO Start: 08-18-2022 End: 10-21-2022 Nirmatrelvir-Ritonavir (Paxl ovid (Eua)) 300 mg (150 mg x 2)-100 mg tablets,dose pack Discontinued 0 PO .COMPLEX August 18, 2022 1:00am October 21, 2022 9:02am take TWO 150 mg tablets of nirmatrelvir with ONE 100 mg tablet of ritonavir twice daily for 5 days PO Start: 08-18-2022 Nirmatrelvir-R itonavir (Paxlovid (Eua)) 300 mg (150 mg x 2)- 100 mg tablets,dose pack Active 0 PO .COMPLEX August 18, 2022 12:00am take TWO 150 mg tablets of nirmatrelvir with ONE 100 mg tablet of ritonavir twice daily for 5 days PO oxyCODONE hydrochloride 5 mg oral tablet (20 sources) Opioid Agonist Start: 09-11-2016 End: 08-18-2017 take 3 tablets by mouth every four hours as needed for pain Oxycodone 5 MG tablet Discontinued 15 mg PO EVERY 4 HOURS NEEDED as needed for Pain September 11, 2016 1:00am August 18, 2017 12:44pm Start: 09-11-2016 End: 08-18-2017 take 15 mg by mouth every four hours as needed Oxycodone Discontinued 15 MG PO EVERY 4 HOURS NEEDED September 11, 2016 1:00am August 18, 2017 12:44pm Start: 09-10-2016 End: 08-18-2017 take 1 tablet by mouth every twelve hours Oxycodone 10 MG tablet Discontinued 10 mg PO Q12H September 10, 2016 1:00am August 18, 2017 12:44pm predniSONE 10 mg oral tablet (20 sources) Start: 05-16-2018 End: 06-26-2018 take 4 tablets by mouth once daily, then take 3 tablets by mouth once daily, then take 2 tablets by mouth once daily, then take 1 tablet by mouth once daily, then take 1 tablet by mouth every other day Prednisone 10 MG tablet Discontinued 10 mg PO DIRECTED May 16, 2018 12:00am June 26, 2018 2:12pm Take 4 tablets daily for 3 days, then 3 daily for 3 days, then 2 daily for 3 days, then 1 a day for 3 days then 1 QOD for 3 doses. promethazine hydrochloride 25 mg oral tablet (20 sources) Phenothiazine Start: 09-10-2016 End: 08-18-2017 take 1 tablet by mouth every four hours as needed for nausea Promethazine 25 MG tablet Discontinued 25 mg PO EVERY 4 HOURS NEEDED as needed for Nausea September 10, 2016 1:00am August 18, 2017 12:44pm raNITIdine 150 mg oral tablet (20 sources) Histamine-2 Receptor Antagonist Start: 08-18-2017 End: 08-19-2017 take 1 tablet by mouth at bedtime Ranitidine Hcl 150 mg tablet Discontinued 150 mg PO AT BEDTIME August 18, 2017 1:00am August 19, 2017 4:31pm Start: 05-07-2016 RANITIDINE HCL 150 MG TABS RANITIDINE HCL [id number] Nolberto Maloney rOPINIRole 0.25 mg oral tablet (20 sources) Nonergot Dopamine Agonist Start: 06-26-2018 End: 04-24-2020 Ropinirole 0.25 mg tablet Discontinued 0.25 mg PO AT BEDTIME 60 February 13, 2019 12:59pm April 24, 2020 6:47am take 1 hour before bed, use one tab nightly for 3 days, may increase to 2 tabs on 4th night if needed traMADol hydrochloride 50 mg oral tablet (20 sources) Opioid Agonist Start: 12-02-2017 End: 01-13-2018 Tramadol 50 mg tablet Discontinued 0 PO EVERY 6 HOURS as needed for pain 56 December 02, 2017 12:00am January 13, 2018 1:34pm 1-2 po q6h prn pain PO Q6H PRN Problems Active Problems Problem Classification Problem Date Documented Date Episodic/Chronic Chronic obstructive pulmonary disease and bronchiectasis (20 sources) Bronchitis; Translations: [Bronchitis, not specified as acute or chronic] 03-15-2018 Episodic Esophageal disorders (20 sources) Gastroesophageal reflux disease; Translations: [Gastro-esophageal reflux disease without esophagitis] 03-15-2018 Chronic Immunizations and screening for infectious disease (20 sources) Contact with and (suspected) exposure to other viral communicable diseases; Translations: [Contact with or suspected exposure to other viral communicable disease] 04-24-2020 Episodic Joint disorders and dislocations; trauma-related (3 sources) Derangement of knee; Translations: [Other internal derangements of left knee] Onset: 05-07-2016 05-20-2016 Chronic Mood disorders (20 sources) Depressive disorder; Translations: [Depressive disorder] 03-15-2018 Chronic Neoplasms of unspecified nature or uncertain behavior (20 sources) Neoplasm of bone; Translations: [Neoplasm of unspecified behavior of bone, soft tissue, and skin] Onset: 01-10-2025 07-21-2021 Episodic Comment on above: IP joint left thumb Nervous system congenital anomalies (3 sources) Spina bifida; Translations: [Spina bifida, unspecified] Onset: 08-11-2016 08-16-2016 Chronic Nonspecific chest pain (2 sources) Chest pain, unspecified; Translations: [Chest pain, unspecified] Onset: 01-14-2025 Episodic Osteoarthritis (20 sources) Localized, primary osteoarthritis; Translations: [Arthritis] Onset: 05-07-2016 05-20-2016 Chronic Other acquired deformities (11 sources) Spondylolisthesis, lumbar region; Translations: [Lumbar spondylolisthesis] Onset: 08-11-2016 08-16-2016 Episodic Other aftercare (20 sources) half-way current use of adalimumab therapy; Translations: [Other intermediate teacher (current) drug therapy] 07-26-2021 Episodic Other connective tissue disease (2 sources) Presence of unspecified artificial knee joint; Translations: [Presence of unspecified artificial knee joint] Onset: 03-14-2017 03-23-2017 Chronic Other connective tissue disease (16 sources) History of prosthetic unicompartmental arthroplasty of left knee; Translations: [Presence of left artificial knee joint] 03-15-2018 Chronic Comment on above: 09/07/16 Other hereditary and degenerative nervous system conditions (20 sources) Restless legs; Translations: [Restless legs syndrome] 03-15-2018 Chronic Other hereditary and degenerative nervous system conditions (3 sources) Restless legs syndrome; Translations: [Restless legs syndrome (RLS)] Chronic Other inflammatory condition of skin (20 sources) Psoriatic arthritis; Translations: [Arthropathic psoriasis, unspecified] 03-15-2018 Chronic Other inflammatory condition of skin (20 sources) Psoriasis; Translations: [Psoriasis, unspecified] 07-21-2021 Chronic Other inflammatory condition of skin (1 source) Arthropathic psoriasis, unspecified; Translations: [Arthropathic psoriasis, unspecified] Onset: 11-21-2024 Chronic Other lower respiratory disease (20 sources) Cough; Translations: [Cough] Episodic Other nervous system disorders (15 sources) Polyneuropathy; Translations: [Polyneuropathy, unspecified] 06-28-2022 Chronic Other nervous system disorders (6 sources) Polyneuropathy, unspecified; Translations: [Unspecified hereditary and idiopathic peripheral neuropathy] Chronic Other non-epithelial cancer of skin (8 sources) Squamous cell carcinoma of skin; Translations: [Squamous cell carcinoma of skin, unspecified] 10-18-2023 Episodic Other non-traumatic joint disorders (20 sources) Morning stiffness - joint; Translations: [Stiffness of left hand, not elsewhere classified] 07-21-2021 Episodic Comment on above: left thumb at IP sandra nt Other non-traumatic joint disorders (20 sources) Thumb joint painful on movement; Translations: [Pain in joints of left hand] 07-21-2021 Episodic Comment on above: IP joint Other non-traumatic joint disorders (20 sources) Swelling of finger joint; Translations: [Effusion, left hand] 07-26-2021 Episodic Comment on above: left thumb at IP sandra nt Other non-traumatic joint disorders (20 sources) Pain in left knee; Translations: [Left knee pain] 03-15-2018 Episodic Other screening for suspected conditions (not mental disorders or infectious disease) (10 sources) Patient encounter status; Translations: [Encounter for screening for malignant neoplasm of colon] 03-11-2023 Episodic Other upper respiratory infections (20 sources) Viral upper respiratory tract infection; Translations: [Acute upper respiratory infection, unspecified] Episodic Comment on above: recent URI, reports initial improvement then worsening sinus complaints. Discussed medication and how to take. Encouraged rest, hydration and OTC for symptom relief. Follow up with PCP if no improvement. Residual codes; unclassified (20 sources) Obstructive sleep apnea syndrome; Translations: [Obstructive sleep apnea (adult) (pediatric)] 03-15-2018 Chronic Spondylosis; intervertebral disc disorders; other back problems (20 sources) Low back pain; Translations: [Low back pain] Onset: 08-11-2016 08-11-2016 Episodic Superficial injury; contusion (8 sources) Abrasion of left little finger; Translations: [Abrasion of left little finger, initial encounter] 01-16-2024 Episodic Thyroid disorders (20 sources) Hypothyroidism; Translations: [Hypothyroidism, unspecified] Onset: 12-18-2024 03-15-2018 Chronic Unclassified (1 source) Postoperative physical examination; Translations: [Encounter for other specified surgical aftercare] Onset: 09-20-2016 09-20-2016 Viral infection (15 sources) Disease caused by 2019-nCoV; Translations: [COVID-19] 08-18-2022 Episodic Past or Other Problems Problem Classification Problem Date Documented Da te Episodic/Chronic Other aftercare (2 sources) Encounter for other specified surgical aftercare; Translations: [Encounter for other specified surgical aftercare] Onset: 09-20-2016 09-20-2016 Episodic Other non-traumatic joint disorders (3 sources) Knee pain; Translations: [Pain in left knee] Onset: 05-07-2016 05-07-2016 Episodic Results Test Name Value Interpretation Reference Range Facility Surgery Specimen Level [facility]os[facility] 01-07-2025 Surgery Specimen Level IV ----- Patient Age/Sex Location Account Attending Physician RAMU BARLOW 59/M [facility] [id number] BENOIT Kapadia Specimen: [id number] Received: 01/07/25 Status: KIARA Cho Num: [id number] Spec Type: Lesion Subm Dr: BENOIT Kapadia HEADER OPERATION: Shave removal PRE-OP DIAGNOSIS: Irregular brown macule, atypical nevus TISSUE SUBMITTED: A- Left inferior lateral upper back lesion MICROSCOPIC DIAGNOSIS A. Skin, left inferior lateral upper back, irregular brown macule, atypical nevus, shave biopsy: * Compound melanocytic nevus (deeper sections examined). MICROSCOPIC DESCRIPTION Slides are reviewed. GROSS DESCRIPTION A. Received in formalin in a container labeled with the patient's name, date of , and left inferior lateral upper back is an unoriented. irregular white-jones skin shave measuring 0.4 x 0.3 cm with a depth of 0.1 cm. The epidermis is notable for a hyperpigmented 0.3 x 0.2 cm macule with irregular borders that abuts the peripheral margin. The deep margin is inked green, and the specimen is submitted entirely in A1. [facility] 01-08-2025 CPT:86112 Patient Age/Sex Location Account [id number] BENOIT Kapadia Signed (signatur e on file) Dr. Margarita Sethi MD 01/17/25 1251 Normal [facility] Comment on above: Performed By: #### P SUIV #### [facility] [address] [place], [address] Cardiovascular stress test r eportOrdered By: Wilmer Choi on 12-26-2024 Study report [facility] [address] [place] [address] MR#: [id number] Acct: [id number] Name: RAMU BARLOW Rep #: [id number] : 1965 59 From: Wilmer Choi MD Primary Care: Dr. Ash Mcpherson MD Status : REG CLI Referring Dr: Ash Mcpherson MD Sex: M C Stress Test Report Exercise myocardial perfusion stress test. 59-year-old man with a history of chest pain Stress protocol: Resting EKG demonstrates normal sinus rhythm with a rate of 72 bpm resting bloodpressure is 116/82 mmHg. The patient exercised according to the regular Gomez protocol for a total duration of 9 minutes attaining a maximum heart rate of 153bpm which was 95% of maximum predicted heart rate; the maximum workload was 10.1metabolic equivalents. At rest there were no ST or T wave changes noted to suggest ischemia and at peak exercise upsloping ST changes only were noted whichdid not meet the criteria for ischemia. No clinical angina was noted the test was terminated due to the target heart rate being achieved/fatigue. The peak blood pressure was 174/86 mmHg. Rate-pressure product was 26,100. Myocardial perfusion protocol. 14.1 mCi of technetium 99m sestamibi was injected at rest. The patient exercised according to regular Gomez protocol for total duration of 9 minutes and at peak exercise 42.9 mCi of technetium 99m sestamibi was injected stress images were obtained stress and rest images were reconstructed in comparing the short axis vertical long and horizontal long axis. Gated images were also obtained. Perfusion SPECT analysis: Review of the stress images demonstrate normal uptake of tracer noted in all areas of the myocardium. The resting images similarly demonstrate normal uptakeof tracer noted in all areas of the myocardium. No areas of reversibility are noted to suggest ischemia no previous infarct was noted. Gated SPECT analysis: The gated ejection fraction is 67%. Conclusion: Normal exercise myocardial perfusion stress test at a high workload Preserved ejection fraction. 12/26/24 1711 Date _ Wilmer Choi MD CC: Dr. Ash Mcpherson MD ~ Date Dictated: 12/26/241658 Date Transcribed: 12/26/241658 Headline Writer: [place] Signed [facility] Work Phone: Stress Reporton 12-26-2024 Stress Report [facility] Cardiovascular Services [address] [place] [address] MR#: [id number] Acct: [id number] Name: RAMU BARLOW Rep #: [id number] : 1965 59 From: Wilmer Choi MD Primary Care: Dr. Ash Mcpherson MD Status: REG CLI Referring Dr: Ash Mcpherson MD Sex: M C Stress Test Report Exercise myocardial perfusion stress test. 59-year-old man with a history of chest pain Stress protocol: Resting EKG demonstrates normal sinus rhythm with a rate of 72 bpm resting blood pressure is 116/82 mmHg. The patient exercised according to the regular Gomez protocol for a total duration of 9 minutes attaining a maximum heart rate of 153 bpm which was 95% of maximum predicted heart rate; the maximum workload was 10.1 metabolic equivalents. At rest there were no ST or T wave changes noted to suggest ischemia and at peak exercise upsloping ST changes only were noted which did not meet the criteria for ischemia. No clinical angina was noted the test was terminated due to the target heart rate being achieved/fatigue. The peak blood pressure was 174/86 mmHg. Rate-pressure product was 26,100. Myocardial perfusion protocol. 14.1 mCi of technetium 99m sestamibi was injected at rest. The patient exercised according to regular Gomez protocol for total duration of 9 minutes and at peak exercise 42.9 mCi of technetium 99m sestamibi was injected stress images were obtained stress and rest images were reconstructed in comparing the short axis vertical long and horizontal long axis. Gated images were also obtained. Perfusion SPECT analysis: Review of the stress images demonstrate normal uptake of tracer noted in all areas of the myocardium. The resting images similarly demonstrate normal uptake of tracer noted in all areas of the myocardium. No areas of reversibility are noted to suggest ischemia no previous infarct was noted. Gated SPECT analysis: The gated ejection fraction is 67%. Conclusion: Normal exercise myocardial perfusion stress test at a high workload Preserved ejection fraction. 12/26/24 1711 Date Wilmer Choi MD CC: Dr. Ash Mcpherson MD Date Dictated: 12/26/241658 Date Transcribed: 12/26/241658 Headline Writer: [place] Signed Normal [facility] Laboratory - Microbiology an d Antimicrobial susceptibilityOrdered By: Spencer Brush on 12-17-2024 SARS-CoV-2 (COVID-19) RNA ANGÉLICA+probe Ql (Unsp spec) Not detected [facility] No Panel InformationOrdered By: Spencer Brush on 12-17-2024 POC Nasal Swab Influenza A,B Not detected [facility] POC Nasal Swab RSV Detected [facility] Office Visit Reporton 2024 Office Visit Report [facility] [address] [place] [address] OFFICE VISIT Date of Service: 12/17/24 MR#: [id number] Acct: [id number] Patient: RAMU BARLOW Rep #: [id number] : 1965 Provider: BENOIT Edouard Age/Sex: 59/M Location: [facility] Status: Signed Intake Vital Signs 02/09/24 15:43 Height 5 ft 10 in 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 Results POC CEPH COV,FluAB,RSV PCR CEPHEID COVID PCR Not DETECTED Last Edit by Rozina Bruce MA on 12/17/24 07:24 CEPHEID FLU AB PCR NOT DETECTED FLU A B Last Edit by Rozina Bruce MA on 12/17/24 07:24 CEPHEID RSV PCR DETECTED Last Edit by Rozina Bruce MA on 12/17/24 07:24 Assessment and Plan Assessment and Plan Orders: Orders POC Cepheid Covid, FluAB, RSV Today 12/17/24813 Date Spencer FARIAS Cosigner Signature: Date (if applicable) CC: Normal [facility] Urgent Care Visit Reporton 0 12-17-2024 Urgent Care Visit Report [facility] [address], [address] [place] [address] OFFICE VISIT Date of Service: 12/17/24 MR#: [id number] Acct: [id number] Name: RAMU BARLOW Rep #: [id number] : 1965 Provider: BENOIT Edouard Age/Sex: 59/M Location: [facility] Status: Signed Intake Vital Signs 02/09/24 15:43 12/17/24 06:41 Height 5 ft 10 in 5 ft 10 in Weight: 214 lb 2 oz BMI 30.7 BP 124/78 H Position Sitting Pulse 100 Temp 98.6 F Temp Source Oral Pulse Oximetry (%) 97 Oxygen Delivery Method room air Intake Visit Reasons: SINUS DRAINAGE, COUGH, COLD SYMPTOMS Accompanied by: Self Allergies No Known Allergies Allergy (Verified 12/17/24 06:49) Medications ???Medication ???Instructions ???Recorded ???Confirmed ???Type adalimumab 10 mg/0.2 mL 40 mg SQ UD 05/07/16 12/17/24 Hist ory subcutaneous syringe kit levothyroxine 100 mcg tablet 100 mcg PO DAILY 05/07/16 12/17/24 History benzonatate 200 mg capsule 200 mg PO TID PRN cough #20 caps 0 12/17/24 12/17/24 Rx methylprednisolone 4 mg tablets in See Rx Instructions PO PER PKG D IR 12/17/24 12/17/24 Rx a dose pack (Medrol (Jamar)) #21 tabs Nurse's Note: Patient has sinus drainage and cough and cold symptoms with sinus pressure. Patient states it started Tue. Patient states though out the days he started having the cold symptoms with Runny nose and sinus drainage and then yesterday he started having sinus presssure. 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, bilateral Psoriasis Adalimumab (Humira) long-term use Swelling of finger joint of left hand Morning joint stiffness of left hand Pain in thumb joint with movement of left hand Thyroid disease SVITLANA (obstructive sleep apnea) RLS (restless legs syndrome) Psoriatic arthritis Depressive disorder Bronchitis URI (upper respiratory infection) Left knee pain Osteoarthritis of left knee Arthritis Hypothyroidism GERD (gastroesophageal reflux disease) Surgical History Hx of colonoscopy History of hand surgery History of left knee replacement S/P left unicompartmental knee replacement S/P left knee arthroscopy Family History Father Diabetes Hypertension SVITLANA (obstructive sleep apnea) Other Arthritis Social History household members: spouse housing: house current occupational status: employed Smoking Status: Never smoker second hand exposure: No alcohol intake: current details: occasionally substance use type: does not use what type of physical activity do you participate in: none danny/congregational: Mosque seatbelt use: always additional social history: pt denies smoking, denies vaping, denies marijuana use, denies edibles, denies using aspirin, denies using ibuprofen HPI HPI Details: RAMU BARLOW, is a 59 M who presents to the office today for [facility] evaluation [facility] the [facility] for approximately 5 day history of persistent cough and congestion/ runny nose with sinus drainage/pressure. Patient notes no complaints of chest pain or shortness of breath or dyspnea on exertion. No close contacts recently dx???d w/ similar URI complaints. No rgkh-hmf-cnmsdeh products taken to assist. Nonsmoker. No other associated symptoms and no other alleviating/aggrava ting factors. ROS Const Constitutional: No other (As above) Exam Const General: cooperative, healthy appearing and no acute distress Orientation: alert, awake and oriented x3 HENMT Head: normal to inspection Ears: hearing grossly normal bilaterally, external ears normal, TM's normal bilaterally and EAC's normal Nose: external nose normal, nares normal, septum normal and clear nasal discharge Face and sinus: normal facial exam, sinuses nontender and face symmetric Mouth: oral mucosae normal, lip normal, tongue normal and oropharynx normal Throat: posterior oropharynx normal, tonsils normal, uvula midline and no postnasal drainage Eyes General: appearance normal, both eyes and all related structures Neck Neck: normal visual inspection, full ROM, no lymphadenopathy, no meningeal signs and supple Neck mass: No Thyroid: thyroid normal Lymphatic: no lymphadenopathy noted Chest Chest palpation inspection: normal inspection of the chest Resp Effort Inspection: normal respiratory effort, able to speak in complete sentences and cough Quality of cough: wet (nonproductive in offi (more content not included)... Normal [facility] Absolute lymphocyte countOrd ered By: Ash Mcpherson on 12-12-2024 Lymphocytes Auto (Unsp spec) [#/Vol] 2.48 10*3/uL 0.83-4.51 [facility] Absolute neutrophil countOrd ered By: Ash Mcpherson on 12-12-2024 Neutrophils (Bld) [#/Vol] 3.7 10*3/uL 2.0-7.7 [facility] Anion gap in Serum or Plasma Ordered By: Ash Mcpherson on 12-12-2024 Anion gap [Moles/Vol] 11 mmol/L 5-15 [facility] Automated lymphocyte count a s percentage of total leukocytesOrdered By: Ash Mcpherson on 12-12-2024 Lymphocytes/100 WBC Auto (Unsp spec) 34.1 % 19-41 [facility] BUN/creatinine ratioOrdered By: Ash Mcpherson on 12-12-2024 Urea nitrogen/Creatinine [Mass ratio] 15.7 mg/mg 10- [facility] Basic Metabolic Profile (BMP )on 12-12-2024 BUN/CRE 15.7 RATIO Normal - [facility] Comment on above: Performed By: #### L 501.51613, L500.2500, L100.0100, L501.9520, L506.0400, L500.4100 ####[facility] [address] [place], [address] Calcium [Mass/Vol] 9.0 mg/dL Normal 7.6-11.0 [facility] Comment on above: Performed By: #### L 501.40494, L500.2500, L100.0100, L501.9520, L506.0400, L500.4100 ####[facility] [address] [place], [address] Chloride [Moles/Vol] 103 mmol/L Normal 98-108 [facility] Comment on above: Performed By: #### L 501.01080, L500.2500, L100.0100, L501.9520, L506.0400, L500.4100 ####[facility] [address] [place], [address] CO2 [Moles/Vol] 24.9 mmol/L Normal 21.0-32.0 [facility] Comment on above: Performed By: #### L 501.27458, L500.2500, L100.0100, L501.9520, L506.0400, L500.4100 ####[facility] [address] [place], [address] Creatinine [Mass/Vol] 1.03 mg/dL Normal 0.70-1.20 [facility] Comment on above: Performed By: #### L 501.08371, L500.2500, L100.0100, L501.9520, L506.0400, L500.4100 ####[facility] [address] [place], [address] GAP 11 Normal 5-15 [facility] Comment on above: Performed By: #### L 501.52526, L500.2500, L100.0100, L501.9520, L506.0400, L500.4100 ####[facility] [address] [place], [address] GFR/1.73 sq M.predicted among non-blacks MDRD (S/P/Bld) [Vol rate/Area] 83 mL/min/{1.73_m2} Normal >60 [facility] Comment on above: Result Comment: mL/m in/1.73m2 CKD-EPI Creatinine Equation (2020) Performed By: #### L 501.47947, L500.2500, L100.0100, L501.9520, L506.0400, L500.4100 ####[facility] [address] [place], [address] Glucose [Mass/Vol] 93 mg/dL Normal 70-99 [facility] Comment on above: Performed By: #### L 501.67935, L500.2500, L100.0100, L501.9520, L506.0400, L500.4100 ####[facility] [address] [place], [address] Potassium [Moles/Vol] 4.1 mmol/L Normal 3.3-5.1 [facility] Comment on above: Performed By: #### L 501.76961, L500.2500, L100.0100, L501.9520, L506.0400, L500.4100 ####[facility] [address] [place], [address] Sodium [Moles/Vol] 138 mmol/L Normal 133-145 [facility] Comment on above: Performed By: #### L 501.13268, L500.2500, L100.0100, L501.9520, L506.0400, L500.4100 ####[facility] [address] [place], [address] Urea nitrogen [Mass/Vol] 16 mg/dL Normal 4-19 [facility] Comment on above: Performed By: #### L 501.81461, L500.2500, L100.0100, L501.9520, L506.0400, L500.4100 ####[facility] [address] [place], [address] Basophil percentageOrdered B y: Ash Mcpherson on 12-12-2024 Basophils/100 WBC (Bld) 1.0 % 0-1 [facility] CBC W/Diff, Automatedon - Absolute Lymph 2.48 X10 3/uL Normal 0.83-4.51 [facility] Comment on above: Performed By: #### L 501.54642, L500.2500, L100.0100, L501.9520, L506.0400, L500.4100 ####[facility] [address], [address] Absolute Neut 3.7 X10 3/uL Normal 2.0-7.7 [facility] Comment on above: Performed By: #### L 501.31359, L500.2500, L100.0100, L501.9520, L506.0400, L500.4100 ####[facility] [address] [place], [address] Basophils/100 WBC (Bld) 1.0 % Normal 0-1 [facility] Comment on above: Performed By: #### L 501.17011, L500.2500, L100.0100, L501.9520, L506.0400, L500.4100 ####[facility] [address] [place], [address] Eosinophils/100 WBC (Bld) 2.1 % Normal 0-5 [facility] Comment on above: Performed By: #### L 501.06513, L500.2500, L100.0100, L501.9520, L506.0400, L500.4100 ####[facility] [address] [place], [address] Erythrocyte distribution width (RBC) [Ratio] 12.7 % Normal 11.6-14.6 [facility] Comment on above: Performed By: #### L 501.20549, L500.2500, L100.0100, L501.9520, L506.0400, L500.4100 ####[facility] [address] [place], [address] Hematocrit (Bld) [Volume fraction] 48.3 % Normal 40-54 [facility] Comment on above: Performed By: #### L 501.34153, L500.2500, L100.0100, L501.9520, L506.0400, L500.4100 ####[facility] [address] [place], [address] Hemoglobin (Bld) [Mass/Vol] 16.5 g/dL Normal 13.0-16.5 [facility] Comment on above: Performed By: #### L 501.73257, L500.2500, L100.0100, L501.9520, L506.0400, L500.4100 ####[facility] [address] [place], [address] IG% 0.700 Normal 0.0-0.9 [facility] Comment on above: Result Comment: IG% - Immature Granulocytes (promyelocytes, myelocytes and metamyelocytes) > 1% indicates that a LEFT SHIFT is Present. Performed By: #### L 501.41518, L500.2500, L100.0100, L501.9520, L506.0400, L500.4100 ####[facility] [address] [place], [address] Lymphocytes/100 WBC (Bld) 34.1 % Normal 19-41 [facility] Comment on above: Performed By: #### L 501.12737, L500.2500, L100.0100, L501.9520, L506.0400, L500.4100 ####[facility] [address] [place], [address] MCH (RBC) [Entitic mass] 30.7 pg Normal 27.0-32.0 [facility] Comment on above: Performed By: #### L 501.22889, L500.2500, L100.0100, L501.9520, L506.0400, L500.4100 ####[facility] [address] [place], [address] MCHC (RBC) [Mass/Vol] 34.2 g/dL Normal 32-36 [facility] Comment on above: Performed By: #### L 501.79207, L500.2500, L100.0100, L501.9520, L506.0400, L500.4100 ####[facility] [address] [place], [address] MCV (RBC) [Entitic vol] 89.8 fL Normal 80-94 [facility] Comment on above: Performed By: #### L 501.87052, L500.2500, L100.0100, L501.9520, L506.0400, L500.4100 ####[facility] [address] [place], [address] Monocytes/100 WBC (Bld) 10.7 % High 0-10 [facility] Comment on above: Performed By: #### L 501.78801, L500.2500, L100.0100, L501.9520, L506.0400, L500.4100 ####[facility] [address] [place], [address] Neutrophils/100 WBC (Bld) 51.4 % Normal 47-70 [facility] Comment on above: Performed By: #### L 501.25658, L500.2500, L100.0100, L501.9520, L506.0400, L500.4100 ####[facility] [address] [place], [address] Nucleated RBC (Bld) [#/Vol] 0 10*3/uL Normal 0-5 [facility] Comment on above: Performed By: #### L 501.62865, L500.2500, L100.0100, L501.9520, L506.0400, L500.4100 ####[facility] [address] [place], [address] Platelet mean volume (Bld) [Entitic vol] 9.8 fL Normal 6.2-12.0 [facility] Comment on above: Performed By: #### L 501.66423, L500.2500, L100.0100, L501.9520, L506.0400, L500.4100 ####[facility] [address] [place], [address] Platelets (Bld) [#/Vol] 346 10*3/uL Normal 150-450 [facility] Comment on above: Performed By: #### L 501.21671, L500.2500, L100.0100, L501.9520, L506.0400, L500.4100 ####[facility] [address] [place], [address] RBC (Bld) [#/Vol] 5.38 10*6/uL Normal 4.6-6.2 [facility] Comment on above: Performed By: #### L 501.04050, L500.2500, L100.0100, L501.9520, L506.0400, L500.4100 ####[facility] [address] [place], [address] RDW SD 41.6 fl Normal 35.1-43.9 [facility] Comment on above: Performed By: #### L 501.43905, L500.2500, L100.0100, L501.9520, L506.0400, L500.4100 ####[facility] [address] [place], [address] WBC (Bld) [#/Vol] 7.3 10*3/uL Normal 4.4-11.0 [facility] Comment on above: Performed By: #### L 501.25635, L500.2500, L100.0100, L501.9520, L506.0400, L500.4100 ####[facility] [address] [place], [address] Calculated very low density lipoprotein (VLDL) cholesterol measurementOrdered By: Ash Mcpherson on 12-12-2024 Calculated very low density lipoprotein (VLDL) cholesterol measurement 34 mg/dL 5-40 [facility] VLDL Cholesterol 34 mg/dL 5-40 [facility] Carbon dioxide, total [Moles /volume] in Central venous bloodOrdered By: Ash Mcpherson on 12-12-2024 CO2 [Moles/Vol] 24.9 mmol/L 21.0-32.0 [facility] Chloride assayOrdered By: Benoit Mcpherson on 12-12-2024 Chloride [Moles/Vol] 103 mmol/L 98-108 [facility] Eosinophil percentageOrdered By: Ash Mcpherson on 12-12-2024 Eosinophils/100 WBC (Bld) 2.1 % 0-5 [facility] Erythrocyte distribution wid th (RBC) [Ratio]Ordered By: Ash Mcpherson on 12-12-2024 Erythrocyte distribution width (RBC) [Entitic vol] 41.6 fL 35.1-43.9 [facility] Erythrocyte distribution wid th ratioOrdered By: Ash Mcpherson on 12-12-2024 Erythrocyte distribution width (RBC) [Ratio] 12.7 % 11.6-14.6 [facility] Erythrocyte distribution wid th standard deviationOrdered By: Ash Mcpherson on 12-12-2024 Erythrocyte distribution width (RBC) [Ratio] 41.6 fl 35.1-43.9 [facility] Free T3on 12-12-2024 Free T3 [Mass/Vol] 2.9 pg/mL Normal 2.18-3.98 [facility] Comment on above: Order Comment: N Performed By: #### L 501.10613, L500.2500, L100.0100, L501.9520, L506.0400, L500.4100 ####[facility] [address] [place], [address] Free P2Hhwevvm By: Ash aguirre on 12-12-2024 Free T3 [Mass/Vol] 2.9 pg/mL 2.18-3.98 [facility] Free Triiodothyronine (T3) pg/dL 2.9 pg/mL 2.18-3.98 [facility] GFR/1.73 sq M.predicted nael g non-blacks MDRD (S/P/Bld) [Vol rate/Area]Ordered By: Ash Mcpherson on 12-12-2024 Estimated GFR (MDRD) Non-Af Amer 83 >60 [facility] Comment on above: mL/min/1.73m2 CKD-EP I Creatinine Equation (2020) Glomerular filtration rate ( GFR) estimation/1.73 sq m using serum, plasma, or whole bOrdered By: Ash Mcpherson on 12-12-2024 GFR/1.73 sq M.predicted among non-blacks MDRD (S/P/Bld) [Vol rate/Area] 83 mL/min/{1.73_m2} >60 [facility] Comment on above: mL/min/1.73m2 CKD-EP I Creatinine Equation (2020) Hematocrit Auto (Bld) [Volum e fraction]Ordered By: Ash Mcpherson on 12-12-2024 Hematocrit (Bld) [Volume fraction] 48.3 % 40-54 [facility] Hemoglobin measurementOrdere d By: Ash Mcpherson on 12-12-2024 Hemoglobin (Bld) [Mass/Vol] 16.5 g/dL 13.0-16.5 [facility] Immature granulocytes/100 WB C Auto (Bld)Ordered By: Ash Mcpherson on 12-12-2024 Immature granulocytes/100 WBC (Bld) 0.700 % 0.0-0.9 [facility] Comment on above: IG% - Immature Granu locytes (promyelocytes, myelocytes and metamyelocytes) > 1% indicates that a LEFT SHIFT is Present. LDL calc ser/plasOrdered By: Ash Mcpherson on 12-12-2024 Cholesterol in LDL [Mass/Vol] 109 mg/dL [facility] Comment on above: Agdlptbquv=256-680 m g/dL & Higher Hlxf=253 mg/dL or greater LDL Cholesterol, Calculated 109 mg/dL [facility] Comment on above: Htoxmdunmo=411-809 m g/dL & Higher Feik=088 mg/dL or greater Lipid Profileon 12-12-2024 CHOL:HDL 3.98 Normal [facility] Comment on above: Performed By: #### L 501.20149, L500.2500, L100.0100, L501.9520, L506.0400, L500.4100 ####[facility] [address] [place], [address] Cholesterol [Mass/Vol] 191 mg/dL Normal <=200 [facility] Comment on above: Result Comment: Chol esterol level, Desirable <200 mg/dL Borderline high cholesterol 200-239 mg/dL High cholesterol >=240 mg/dL Recommendations of the NCEP Adult Treatment Panel for the following risk-cutoff thresholds for the [place] population. Performed By: #### L 501.08970, L500.2500, L100.0100, L501.9520, L506.0400, L500.4100 ####[facility] [address] [place], [address] Cholesterol in HDL [Mass/Vol] 48 mg/dL Normal [facility] Comment on above: Result Comment: Alma Delia onal Cholesterol Education Program (NCEP) guidelines: <40 mg/dL: Low HDL-cholesterol (major risk factor for CHD) >= 60 mg/dL: High HDL-cholesterol (negative risk factor for CHD) HDL-cholesterol is affected by a number of factors, e.g. smoking, exercise, hormones, sex and age. Performed By: #### L 501.06658, L500.2500, L100.0100, L501.9520, L506.0400, L500.4100 ####[facility] [address] [place], [address] Cholesterol in LDL [Mass/Vol] 109 mg/dL Normal [facility] Comment on above: Result Comment: Bord sqfnvy=902-495 mg/dL Higher Dwwx=712 mg/dL or greater Performed By: #### L 501.45750, L500.2500, L100.0100, L501.9520, L506.0400, L500.4100 ####[facility] [address] [place], [address] Cholesterol in VLDL [Mass/Vol] 34 mg/dL Normal 5-40 [facility] Comment on above: Performed By: #### L 501.78999, L500.2500, L100.0100, L501.9520, L506.0400, L500.4100 ####[facility] [address] [place], [address] Triglyceride [Mass/Vol] 171 mg/dL Normal [facility] Comment on above: Result Comment: The drugs N-Acetylcysteine and Metamizole may falsely depress this assay. Normal range: <150 mg/dL Borderline High: 150-199 mg/dL High: 200-499 mg/dL Very High: >500 mg/dL Performed By: #### L 501.08268, L500.2500, L100.0100, L501.9520, L506.0400, L500.4100 ####[facility] [address] [place], [address] Lymphocytes Auto (Unsp spec) [#/Vol]Ordered By: Ash Mcpherson on 12-12-2024 Lymphocytes (Bld) [#/Vol] 2.48 10*3/uL 0.83-4.5 1 [facility] Lymphocytes/100 WBC Auto (Un sp spec)Ordered By: Ash Mcpherson on 12-12-2024 Lymphocytes/100 WBC (Bld) 34.1 % 19-41 [facility] MCV (mean corpuscular volume ) determinationOrdered By: Ash Mcpherson on 12-12-2024 MCV (RBC) [Entitic vol] 89.8 fL 80-94 [facility] Mean corpuscular hemoglobin (MCH) determinationOrdered By: Ash Mcpherson on 12-12-2024 MCH (RBC) [Entitic mass] 30.7 pg 27.0-32.0 [facility] Mean corpuscular hemoglobin concentration (MCHC) determinationOrdered By: Ash Mcpherson on 12-12-2024 MCHC (RBC) [Mass/Vol] 34.2 g/dL 32-36 [facility] Mean platelet volume determi nationOrdered By: Ash Mcpherson on 12-12-2024 Platelet mean volume (Bld) [Entitic vol] 9.8 fL 6.2-12.0 [facility] Monocyte percentageOrdered B y: Ash Mcpherson on 12-12-2024 Monocytes/100 WBC (Bld) 10.7 % High 0-10 [facility] Neutrophil percentageOrdered By: Ash Mcpherson on 12-12-2024 Neutrophils/100 WBC (Bld) 51.4 % 47-70 [facility] Nucleated red blood cell per centageOrdered By: Ash Mcpherson on 12-12-2024 Nucleated RBC/100 WBC (Bld) [Ratio] 0 % 0-5 [facility] Platelet countOrdered By: Benoit Mcpherson on 12-12-2024 Platelets (Bld) [#/Vol] 346 10*3/uL 150-450 [facility] Potassium (Unsp spec) [Mass/ Vol]Ordered By: Ash Mcpherson on 12-12-2024 Potassium [Moles/Vol] 4.1 mmol/L 3.3-5.1 [facility] Potassium measurement (mass/ volume)Ordered By: Ash Mcpherson on 12-12-2024 Potassium (Unsp spec) [Mass/Vol] 4.1 mmol/L 3.3-5.1 [facility] RBC Auto (Bld) [#/Vol]Ordere d By: Ash Mcpherson on 12-12-2024 RBC (Bld) [#/Vol] 5.38 10*6/uL 4.6-6.2 [facility] Screening total cholesterol/ high density lipoprotein (HDL) cholesterol ratioOrdered By: Ash Mcpherson on 12-12-2024 Cholesterol.total/Cholest priscilla in HDL [Mass ratio] 3.98 {ratio} [facility] Serum creatinine measurement (mass/volume)Ordered By: Ash Mcpherson on 12-12-2024 Creatinine [Mass/Vol] 1.03 mg/dL 0.70-1.20 [facility] Serum glucose measurement (m ass/volume)Ordered By: Ash Mcpherson on 12-12-2024 Glucose [Mass/Vol] 93 mg/dL 70-99 [facility] Serum or plasma calcium kendra urement (mass/volume)Ordered By: Ash Mcpherson on 12-12-2024 Calcium [Mass/Vol] 9.0 mg/dL 7.6-11.0 [facility] Serum or plasma cholesterol in HDL measurement (mass/volume)Ordered By: Ash Mcpherson on 12-12-2024 Cholesterol in HDL [Mass/Vol] 48 mg/dL >40 [facility] Comment on above: National Cholesterol Education Program (NCEP) guidelines:<40 mg/dL: Low HDL-cholesterol (major risk factor for CHD)>= 60 mg/dL: High HDL-cholesterol (negative risk factor for CHD)HDL-cholesterol is affected by a number of factors, e.g. smoking, exercise, hormones, sex and age. Serum or plasma cholesterol measurement (mass/volume)Ordered By: Ash Mcpherson on 12-12-2024 Cholesterol [Mass/Vol] 191 mg/dL <201 [facility] Comment on above: Cholesterol level, D esirable <200 mg/dLBorderline high cholesterol 200-239 mg/dLHigh cholesterol >=240 mg/dLRecommendations of the NCEP Adult Treatment Panel for the following risk-cutoff thresholds for the [place] population. Serum or plasma urea nitroge n measurement (mass/volume)Ordered By: Ash Mcpherson on 12-12-2024 Urea nitrogen [Mass/Vol] 16 mg/dL 4-19 [facility] Sodium levelOrdered By: Ash Mcpherson on 12-12-2024 Sodium [Moles/Vol] 138 mmol/L 133-145 [facility] T4 Free Directon 12-12-2024 T4 FREE DIRECT 1.60 ng/dL High 0.76-1.46 [facility] Comment on above: Order Comment: N Performed By: #### L 501.22232, L500.2500, L100.0100, L501.9520, L506.0400, L500.4100 ####[facility] [address] [place], [place], [id number] T4 freeOrdered By: Ash aguirre on 12-12-2024 Free T4 [Mass/Vol] 1.60 ng/dL High 0.76-1.46 [facility] TSH DL <= 0.005 mIU/L QnOrde red By: Ash Mcphreson on 12-12-2024 Thyroid Stimulating Hormone (TSH) 2.000 uIU/mL 0.300-4.200 [facility] TSH Qn 2.000 uIU/mL 0.300-4.200 [facility] Thyroid Stim Hormone (TSH)on 12-12-2024 TSH 2.000 uIU/mL Normal 0.300-4.200 [facility] Comment on above: Performed By: #### L 501.35886, L500.2500, L100.0100, L501.9520, L506.0400, L500.4100 ####[facility] [address] [place], [address] Triglycerides measurementOrd ered By: Ash Mcpherson on 12-12-2024 Triglyceride [Mass/Vol] 171 mg/dL <199 [facility] Comment on above: The drugs N-Acetylcy steine and Metamizole may falsely depress this assay. Normal range: <150 mg/dLBorderline High: 150-199 mg/dLHigh: 200-499 mg/dLVery High: >500 mg/dL White blood cell (WBC) count Ordered By: Ash Mcpherson on 12-12-2024 WBC (Bld) [#/Vol] 7.3 10*3/uL 4.4-11.0 [facility] Absolute lymphocyte counton 11-07-2024 Lymphocytes Auto (Unsp spec) [#/Vol] 2.36 10*3/uL 0.83-4.51 [facility] Absolute neutrophil counton 11-07-2024 Neutrophils (Bld) [#/Vol] 4.1 10*3/uL 2.0-7.7 [facility] Automated lymphocyte count a s percentage of total leukocyteson 11-07-2024 Lymphocytes/100 WBC Auto (Unsp spec) 32.2 % 19-41 [facility] Basophil percentageon 2024 Basophils/100 WBC (Bld) 1.0 % 0-1 [facility] Bilirubin directon Bilirubin.direct [Mass/Vol] 0.17 mg/dL 0.00-0.30 [facility] Comment on above: Hemolysis present, R esults could be affected. Bilirubin, totalon 5 Bilirubin [Mass/Vol] 0.49 mg/dL 0.00-1.30 [facility] CBC W/Diff, Automatedon Absolute Lymph 2.36 X10 3/uL Normal 0.83-4.51 [facility] Comment on above: Performed By: #### L 101.9900, L501.6710, L100.0100, L500.3400, L501.1105 ####[facility] [address] [place], [address] Absolute Neut 4.1 X10 3/uL Normal 2.0-7.7 [facility] Comment on above: Performed By: #### L 101.9900, L501.6710, L100.0100, L500.3400, L501.1105 ####[facility] [address] [place], [address] Basophils/100 WBC (Bld) 1.0 % Normal 0-1 [facility] Comment on above: Performed By: #### L 101.9900, L501.6710, L100.0100, L500.3400, L501.1105 ####[facility] [address] [place], [address] Eosinophils/100 WBC (Bld) 1.8 % Normal 0-5 [facility] Comment on above: Performed By: #### L 101.9900, L501.6710, L100.0100, L500.3400, L501.1105 ####[facility] [address] [place], [address] Erythrocyte distribution width (RBC) [Ratio] 13.1 % Normal 11.6-14.6 [facility] Comment on above: Performed By: #### L 101.9900, L501.6710, L100.0100, L500.3400, L501.1105 ####[facility] [address] [place], [address] Hematocrit (Bld) [Volume fraction] 47.3 % Normal 40-54 [facility] Comment on above: Performed By: #### L 101.9900, L501.6710, L100.0100, L500.3400, L501.1105 ####[facility] [address] [place], [address] Hemoglobin (Bld) [Mass/Vol] 16.0 g/dL Normal 13.0-16.5 [facility] Comment on above: Performed By: #### L 101.9900, L501.6710, L100.0100, L500.3400, L501.1105 ####[facility] [address] [place], [address] IG% 0.500 Normal 0.0-0.9 [facility] Comment on above: Result Comment: IG% - Immature Granulocytes (promyelocytes, myelocytes and metamyelocytes) > 1% indicates that a LEFT SHIFT is Present. Performed By: #### L 101.9900, L501.6710, L100.0100, L500.3400, L501.1105 ####[facility] [address] [place], [address] Lymphocytes/100 WBC (Bld) 32.2 % Normal 19-41 [facility] Comment on above: Performed By: #### L 101.9900, L501.6710, L100.0100, L500.3400, L501.1105 ####[facility] [address] [place], [address] MCH (RBC) [Entitic mass] 30.6 pg Normal 27.0-32.0 [facility] Comment on above: Performed By: #### L 101.9900, L501.6710, L100.0100, L500.3400, L501.1105 ####[facility] [address] [place], [address] MCHC (RBC) [Mass/Vol] 33.8 g/dL Normal 32-36 [facility] Comment on above: Performed By: #### L 101.9900, L501.6710, L100.0100, L500.3400, L501.1105 ####[facility] [address] [place], [address] MCV (RBC) [Entitic vol] 90.4 fL Normal 80-94 [facility] Comment on above: Performed By: #### L 101.9900, L501.6710, L100.0100, L500.3400, L501.1105 ####[facility] [address] [place], [address] Monocytes/100 WBC (Bld) 9.4 % Normal 0-10 [facility] Comment on above: Performed By: #### L 101.9900, L501.6710, L100.0100, L500.3400, L501.1105 ####[facility] [address] [place], [address] Neutrophils/100 WBC (Bld) 55.1 % Normal 47-70 [facility] Comment on above: Performed By: #### L 101.9900, L501.6710, L100.0100, L500.3400, L501.1105 ####[facility] [address] [place], [address] Nucleated RBC (Bld) [#/Vol] 0 10*3/uL Normal 0-5 [facility] Comment on above: Performed By: #### L 101.9900, L501.6710, L100.0100, L500.3400, L501.1105 ####[facility] [address] [place], [address] Platelet mean volume (Bld) [Entitic vol] 9.4 fL Normal 6.2-12.0 [facility] Comment on above: Performed By: #### L 101.9900, L501.6710, L100.0100, L500.3400, L501.1105 ####[facility] [address] [place], [address] Platelets (Bld) [#/Vol] 338 10*3/uL Normal 150-450 [facility] Comment on above: Performed By: #### L 101.9900, L501.6710, L100.0100, L500.3400, L501.1105 ####[facility] [address] [place], [address] RBC (Bld) [#/Vol] 5.23 10*6/uL Normal 4.6-6.2 [facility] Comment on above: Performed By: #### L 101.9900, L501.6710, L100.0100, L500.3400, L501.1105 ####[facility] [address] [place], [address] RDW SD 43.1 fl Normal 35.1-43.9 [facility] Comment on above: Performed By: #### L 101.9900, L501.6710, L100.0100, L500.3400, L501.1105 ####[facility] [address] [place], [address] WBC (Bld) [#/Vol] 7.3 10*3/uL Normal 4.4-11.0 [facility] Comment on above: Performed By: #### L 101.9900, L501.6710, L100.0100, L500.3400, L501.1105 ####[facility] [address] [place], [address] CRPon 11-07-2024 C-REACTIVE PROT < 3.00 Normal 0.0-3.0 [facility] Comment on above: Performed By: #### L 101.9900, L501.6710, L100.0100, L500.3400, L501.1105 ####[facility] [address] [place], [address] CRP [Mass/Vol]on 11-07-2024 C-Reactive Protein Extended Range < 3.00 mg/L 0.0-3.0 [facility] Eosinophil percentageon 0 Eosinophils/100 WBC (Bld) 1.8 % 0-5 [facility] Erythrocyte Sed Rateon 11-07 SED RATE 1 mm/hr Normal 0-20 [facility] Comment on above: Performed By: #### L 101.9900, L501.6710, L100.0100, L500.3400, L501.1105 ####[facility] [address] [place], [address] Erythrocyte distribution wid th ratioon 11-07-2024 Erythrocyte distribution width (RBC) [Ratio] 13.1 % 11.6-14.6 [facility] Erythrocyte distribution wid th standard deviationon 11-07-2024 Erythrocyte distribution width (RBC) [Entitic vol] 43.1 fL 35.1-43.9 [facility] Erythrocyte distribution width (RBC) [Ratio] 43.1 fl 35.1-43.9 [facility] Erythrocyte sedimentation ra sonya 11-07-2024 ESR (Bld) [Velocity] 1 mm/h 0-20 [facility] GFR/1.73 sq M.predicted nael g non-blacks MDRD (S/P/Bld) [Vol rate/Area]on 11-07-2024 Estimated GFR (MDRD) Non-Af Amer 91 >60 [facility] Comment on above: mL/min/1.73m2 CKD-EP I Creatinine Equation (2020) Glomerular filtration rate ( GFR) estimation/1.73 sq m using serum, plasma, or whole bon 11-07-2024 GFR/1.73 sq M.predicted among non-blacks MDRD (S/P/Bld) [Vol rate/Area] 91 mL/min/{1.73_m2} >60 [facility] Comment on above: mL/min/1.73m2 CKD-EP I Creatinine Equation (2020) Hematocrit Auto (Bld) [Volum e fraction]on 11-07-2024 Hematocrit (Bld) [Volume fraction] 47.3 % 40-54 [facility] Hemoglobin measurementon Hemoglobin (Bld) [Mass/Vol] 16.0 g/dL 13.0-16.5 [facility] Immature granulocytes/100 WB C Auto (Bld)on 11-07-2024 Immature granulocytes/100 WBC (Bld) 0.500 % 0.0-0.9 [facility] Comment on above: IG% - Immature Granu locytes (promyelocytes, myelocytes and metamyelocytes) > 1% indicates that a LEFT SHIFT is Present. Laboratory - Chemistry and C hemistry - challengeon 11-07-2024 AST [Catalytic activity/Vol] 27 U/L <38 [facility] Comment on above: Hemolysis present, R esults could be affected. Liver Profileon 11-07-2024 Albumin [Mass/Vol] 4.2 g/dL Normal 3.4-4.8 [facility] Comment on above: Order Comment: CBCD Performed By: #### L 101.9900, L501.6710, L100.0100, L500.3400, L501.1105 ####[facility] [address] [place], [address] ALK PHOS 97 U/L Normal 40-129 [facility] Comment on above: Order Comment: CBCD Performed By: #### L 101.9900, L501.6710, L100.0100, L500.3400, L501.1105 ####[facility] [address] [place], [address] ALT [Catalytic activity/Vol] 19 U/L Normal <=46 [facility] Comment on above: Order Comment: CBCD Performed By: #### L 101.9900, L501.6710, L100.0100, L500.3400, L501.1105 ####[facility] [address] [place], [address] AST [Catalytic activity/Vol] 27 U/L Normal <=37 [facility] Comment on above: Order Comment: CBCD Result Comment: Hemo lysis present, Results??could be affected. ?? Performed By: #### L 101.9900, L501.6710, L100.0100, L500.3400, L501.1105 ####[facility] [address] [place], [address] Bilirubin [Mass/Vol] 0.49 mg/dL Normal 0.00-1.30 [facility] Comment on above: Order Comment: CBCD Performed By: #### L 101.9900, L501.6710, L100.0100, L500.3400, L501.1105 ####[facility] [address] [place], [address] Bilirubin.direct [Mass/Vol] 0.17 mg/dL Normal 0.00-0.30 [facility] Comment on above: Order Comment: CBCD Result Comment: Hemo lysis present, Results??could be affected. ?? Performed By: #### L 101.9900, L501.6710, L100.0100, L500.3400, L501.1105 ####[facility] [address] [place], [address] Globulin (S) [Mass/Vol] 2.7 g/dL Normal 2.2-4.2 [facility] Comment on above: Order Comment: CBCD Performed By: #### L 101.9900, L501.6710, L100.0100, L500.3400, L501.1105 ####[facility] [address] [place], [address] T PROT 6.8 g/dL Normal 5.9-8.4 [facility] Comment on above: Order Comment: CBCD Performed By: #### L 101.9900, L501.6710, L100.0100, L500.3400, L501.1105 ####[facility] [address] [place], [address] Lymphocytes Auto (Unsp spec) [#/Vol]on 11-07-2024 Lymphocytes (Bld) [#/Vol] 2.36 10*3/uL 0.83-4.5 1 [facility] Lymphocytes/100 WBC Auto (Un sp spec)on 11-07-2024 Lymphocytes/100 WBC (Bld) 32.2 % 19-41 [facility] MCV (mean corpuscular volume ) determinationon 11-07-2024 MCV (RBC) [Entitic vol] 90.4 fL 80-94 [facility] Mean corpuscular hemoglobin (MCH) determinationon 11-07-2024 MCH (RBC) [Entitic mass] 30.6 pg 27.0-32.0 [facility] Mean corpuscular hemoglobin concentration (MCHC) determinationon 11-07-2024 MCHC (RBC) [Mass/Vol] 33.8 g/dL 32-36 [facility] Mean platelet volume determi nationon 11-07-2024 Platelet mean volume (Bld) [Entitic vol] 9.4 fL 6.2-12.0 [facility] Monocyte percentageon 2024 Monocytes/100 WBC (Bld) 9.4 % 0-10 [facility] Neutrophil percentageon 03-0 Neutrophils/100 WBC (Bld) 55.1 % 47-70 [facility] Nucleated red blood cell per centageon 11-07-2024 Nucleated RBC/100 WBC (Bld) [Ratio] 0 % 0-5 [facility] Platelet counton 11-07-2024 Platelets (Bld) [#/Vol] 338 10*3/uL 150-450 [facility] RBC Auto (Bld) [#/Vol]on RBC (Bld) [#/Vol] 5.23 10*6/uL 4.6-6.2 [facility] Serum Creatinine AND GFRon 0 11-07-2024 Creatinine [Mass/Vol] 0.95 mg/dL Normal 0.70-1.20 [facility] Comment on above: Performed By: #### L 101.9900, L501.6710, L100.0100, L500.3400, L501.1105 ####[facility] [address] [place], [place], [address] GFR/1.73 sq M.predicted among non-blacks MDRD (S/P/Bld) [Vol rate/Area] 91 mL/min/{1.73_m2} Normal >60 [facility] Comment on above: Result Comment: mL/m in/1.73m2 CKD-EPI Creatinine Equation (2020) Performed By: #### L 101.9900, L501.6710, L100.0100, L500.3400, L501.1105 ####[facility] [address] [place], [place], [id number] Serum creatinine measurement (mass/volume)on 11-07-2024 Creatinine [Mass/Vol] 0.95 mg/dL 0.70-1.20 [facility] Serum globulin measurementon 11-07-2024 Globulin (S) [Mass/Vol] 2.7 g/dL 2.2-4.2 [facility] Serum or plasma C reactive p rotein measurement (mass/volume)on 11-07-2024 CRP [Mass/Vol] mg/L 0.0-3.0 [facility] Serum or plasma alanine oleary otransferase (ALT) measurementon 11-07-2024 ALT [Catalytic activity/Vol] 19 U/L <47 [facility] Serum or plasma albumin kendra urement (mass/volume)on 11-07-2024 Albumin [Mass/Vol] 4.2 g/dL 3.4-4.8 [facility] Serum or plasma alkaline branden sphatase measurementon 11-07-2024 ALP [Catalytic activity/Vol] 97 U/L 40-129 [facility] Total proteinon 11-07-2024 Protein [Mass/Vol] 6.8 g/dL 5.9-8.4 [facility] White blood cell (WBC) count on 11-07-2024 WBC (Bld) [#/Vol] 7.3 10*3/uL 4.4-11.0 [facility] Absolute neutrophil counton 08-08-2024 Neutrophils (Bld) [#/Vol] 3.6 10*3/uL 2.0-7.7 [facility] Basophil percentageon 2023 Basophils/100 WBC (Bld) 0.7 % 0-1 [facility] Bilirubin directon Bilirubin.direct [Mass/Vol] 0.14 mg/dL 0.00-0.30 [facility] Bilirubin, totalon Bilirubin [Mass/Vol] 0.50 mg/dL 0.20-1.00 [facility] Comment on above: For patients on eltr ombopag therapy, use of Dimension [place] TBIL is not recommended. C-reactive protein measureme nt by high sensitivity methodon 08-08-2024 C-Reactive Protein Extended Range < 2.90 mg/L 0.0-3.0 [facility] Comment on above: C-Reactive Protein ( CRP) provides useful information for thediagnosis, therapy and monitoring of inflammatory processesand associated diseases. For the evaluation of Relative Riskfor Cardiovascular Disease, a High Sensitivity CRP (HSCRP)should be ordered. CBC W/Diff, Automatedon 12-0 Absolute Lymph 2.28 X10 3/uL Normal 0.83-4.51 [facility] Comment on above: Performed By: #### L 100.0100, L500.3400, L501.1105, L101.9900, L501.6710 ####[facility] [address] [place], [address] Absolute Neut 3.6 X10 3/uL Normal 2.0-7.7 [facility] Comment on above: Performed By: #### L 100.0100, L500.3400, L501.1105, L101.9900, L501.6710 ####[facility] [address] [place], [address] Basophils/100 WBC (Bld) 0.7 % Normal 0-1 [facility] Comment on above: Performed By: #### L 100.0100, L500.3400, L501.1105, L101.9900, L501.6710 ####[facility] [address] [place], [address] Eosinophils/100 WBC (Bld) 1.6 % Normal 0-5 [facility] Comment on above: Performed By: #### L 100.0100, L500.3400, L501.1105, L101.9900, L501.6710 ####[facility] [address] [place], [address] Erythrocyte distribution width (RBC) [Ratio] 12.8 % Normal 11.6-14.6 [facility] Comment on above: Performed By: #### L 100.0100, L500.3400, L501.1105, L101.9900, L501.6710 ####[facility] [address] [place], [address] Hematocrit (Bld) [Volume fraction] 48.7 % Normal 40-54 [facility] Comment on above: Performed By: #### L 100.0100, L500.3400, L501.1105, L101.9900, L501.6710 ####[facility] [address] [place], [address] Hemoglobin (Bld) [Mass/Vol] 16.5 g/dL Normal 13.0-16.5 [facility] Comment on above: Performed By: #### L 100.0100, L500.3400, L501.1105, L101.9900, L501.6710 ####[facility] [address] [place], [address] IG% 0.600 Normal 0.0-0.9 [facility] Comment on above: Result Comment: IG% - Immature Granulocytes (promyelocytes, myelocytes and metamyelocytes) > 1% indicates that a LEFT SHIFT is Present. Performed By: #### L 100.0100, L500.3400, L501.1105, L101.9900, L501.6710 ####[facility] [address] [place], [address] Lymphocytes/100 WBC (Bld) 34.0 % Normal 19-41 [facility] Comment on above: Performed By: #### L 100.0100, L500.3400, L501.1105, L101.9900, L501.6710 ####[facility] [address] [place], [address] MCH (RBC) [Entitic mass] 30.6 pg Normal 27.0-32.0 [facility] Comment on above: Performed By: #### L 100.0100, L500.3400, L501.1105, L101.9900, L501.6710 ####[facility] [address] [place], [address] MCHC (RBC) [Mass/Vol] 33.9 g/dL Normal 32-36 [facility] Comment on above: Performed By: #### L 100.0100, L500.3400, L501.1105, L101.9900, L501.6710 ####[facility] [address] [place], [address] MCV (RBC) [Entitic vol] 90.2 fL Normal 80-94 [facility] Comment on above: Performed By: #### L 100.0100, L500.3400, L501.1105, L101.9900, L501.6710 ####[facility] [address] [place], [address] Monocytes/100 WBC (Bld) 9.9 % Normal 0-10 [facility] Comment on above: Performed By: #### L 100.0100, L500.3400, L501.1105, L101.9900, L501.6710 ####[facility] [address] [place], [address] Neutrophils/100 WBC (Bld) 53.2 % Normal 47-70 [facility] Comment on above: Performed By: #### L 100.0100, L500.3400, L501.1105, L101.9900, L501.6710 ####[facility] [address] [place], [address] Nucleated RBC (Bld) [#/Vol] 0 10*3/uL Normal 0-5 [facility] Comment on above: Performed By: #### L 100.0100, L500.3400, L501.1105, L101.9900, L501.6710 ####[facility] [address] [place], [address] Platelet mean volume (Bld) [Entitic vol] 9.6 fL Normal 6.2-12.0 [facility] Comment on above: Performed By: #### L 100.0100, L500.3400, L501.1105, L101.9900, L501.6710 ####[facility] [address] [place], [address] Platelets (Bld) [#/Vol] 308 10*3/uL Normal 150-450 [facility] Comment on above: Performed By: #### L 100.0100, L500.3400, L501.1105, L101.9900, L501.6710 ####[facility] [address] [place], [address] RBC (Bld) [#/Vol] 5.40 10*6/uL Normal 4.6-6.2 [facility] Comment on above: Performed By: #### L 100.0100, L500.3400, L501.1105, L101.9900, L501.6710 ####[facility] [address] [place], [address] RDW SD 42.4 fl Normal 35.1-43.9 [facility] Comment on above: Performed By: #### L 100.0100, L500.3400, L501.1105, L101.9900, L501.6710 ####[facility] [address] [place], [address] WBC (Bld) [#/Vol] 6.7 10*3/uL Normal 4.4-11.0 [facility] Comment on above: Performed By: #### L 100.0100, L500.3400, L501.1105, L101.9900, L501.6710 ####[facility] [address] [place], [address] CRPon 08-08-2024 C-REACTIVE PROT < 2.90 Normal 0.0-3.0 [facility] Comment on above: Result Comment: C-Re active Protein (CRP) provides useful information for the diagnosis, therapy and monitoring of inflammatory processes and associated diseases. For the evaluation of Relative Risk for Cardiovascular Disease, a High Sensitivity CRP (HSCRP) should be ordered. Performed By: #### L 100.0100, L500.3400, L501.1105, L101.9900, L501.6710 ####[facility] [address] [place], [address] Eosinophil percentageon 12-0 Eosinophils/100 WBC (Bld) 1.6 % 0-5 [facility] Erythrocyte Sed Rateon 08-08 SED RATE < 1 Normal 0-20 [facility] Comment on above: Performed By: #### L 100.0100, L500.3400, L501.1105, L101.9900, L501.6710 ####[facility] [address] [place], [place], [address] Erythrocyte distribution wid th ratioon 08-08-2024 Erythrocyte distribution width (RBC) [Ratio] 12.8 % 11.6-14.6 [facility] Erythrocyte distribution wid th standard deviationon 08-08-2024 Erythrocyte distribution width (RBC) [Entitic vol] 42.4 fL 35.1-43.9 [facility] Erythrocyte sedimentation ra sonya 08-08-2024 ESR (Bld) [Velocity] mm/h 0-20 [facility] Estimated glomerular filtrat ion rate (GFR) Americanon 08-08-2024 Estimated GFR (MDRD) Amer 100 mL/min >60 [facility] Comment on above: GFR Calc Glomerular filtration rate ( GFR) estimationon 08-08-2024 Estimated GFR (MDRD) Non-Af Amer 83 mL/min >60 [facility] Comment on above: Non- GFR Calc Hematocrit Auto (Bld) [Volum e fraction]on 08-08-2024 Hematocrit (Bld) [Volume fraction] 48.7 % 40-54 [facility] Hemoglobin measurementon Hemoglobin (Bld) [Mass/Vol] 16.5 g/dL 13.0-16.5 [facility] Immature granulocytes/100 WB C Auto (Bld)on 08-08-2024 Immature granulocytes/100 WBC (Bld) 0.600 % 0.0-0.9 [facility] Comment on above: IG% - Immature Granu locytes (promyelocytes, myelocytes and metamyelocytes) > 1% indicates that a LEFT SHIFT is Present. Laboratory - Chemistry and C hemistry - challengeon 08-08-2024 AST [Catalytic activity/Vol] 24 U/L - [facility] Liver Profileon 08-08-2024 Albumin [Mass/Vol] 3.9 g/dL Normal 3.2-5.0 [facility] Comment on above: Performed By: #### L 100.0100, L500.3400, L501.1105, L101.9900, L501.6710 ####[facility] [address] [place], [address] ALK P 95 U/L Normal 45-117 [facility] Comment on above: Performed By: #### L 100.0100, L500.3400, L501.1105, L101.9900, L501.6710 ####[facility] [address] [place], [address] ALT [Catalytic activity/Vol] 29 U/L Normal 16-61 [facility] Comment on above: Performed By: #### L 100.0100, L500.3400, L501.1105, L101.9900, L501.6710 ####[facility] [address] [place], [address] AST [Catalytic activity/Vol] 24 U/L Normal 15-37 [facility] Comment on above: Performed By: #### L 100.0100, L500.3400, L501.1105, L101.9900, L501.6710 ####[facility] [address] [place], [address] Bilirubin [Mass/Vol] 0.50 mg/dL Normal 0.20-1.00 [facility] Comment on above: Result Comment: For patients on eltrombopag therapy, use of Dim[place] TBIL is not recommended. Performed By: #### L 100.0100, L500.3400, L501.1105, L101.9900, L501.6710 ####[facility] [address] [place], [address] Bilirubin.direct [Mass/Vol] 0.14 mg/dL Normal 0.00-0.30 [facility] Comment on above: Performed By: #### L 100.0100, L500.3400, L501.1105, L101.9900, L501.6710 ####[facility] [address] [place], [address] Globulin (S) [Mass/Vol] 3.2 g/dL Normal 2.2-4.2 [facility] Comment on above: Performed By: #### L 100.0100, L500.3400, L501.1105, L101.9900, L501.6710 ####[facility] [address] [place], [address] T PROT 7.1 g/dL Normal 6.4-8.2 [facility] Comment on above: Performed By: #### L 100.0100, L500.3400, L501.1105, L101.9900, L501.6710 ####[facility] [address] [place], [address] Lymphocytes Auto (Unsp spec) [#/Vol]on 08-08-2024 Lymphocytes (Bld) [#/Vol] 2.28 10*3/uL 0.83-4.5 1 [facility] Lymphocytes/100 WBC Auto (Un sp spec)on 08-08-2024 Lymphocytes/100 WBC (Bld) 34.0 % 19-41 [facility] MCV (mean corpuscular volume ) determinationon 08-08-2024 MCV (RBC) [Entitic vol] 90.2 fL 80-94 [facility] Mean corpuscular hemoglobin (MCH) determinationon 08-08-2024 MCH (RBC) [Entitic mass] 30.6 pg 27.0-32.0 [facility] Mean corpuscular hemoglobin concentration (MCHC) determinationon 08-08-2024 MCHC (RBC) [Mass/Vol] 33.9 g/dL 32-36 [facility] Mean platelet volume determi nationon 08-08-2024 Platelet mean volume (Bld) [Entitic vol] 9.6 fL 6.2-12.0 [facility] Monocyte percentageon 2023 Monocytes/100 WBC (Bld) 9.9 % 0-10 [facility] Neutrophil percentageon 12 Neutrophils/100 WBC (Bld) 53.2 % 47-70 [facility] Nucleated red blood cell per centageon 08-08-2024 Nucleated RBC/100 WBC (Bld) [Ratio] 0 % 0-5 [facility] Platelet counton 08-08-2024 Platelets (Bld) [#/Vol] 308 10*3/uL 150-450 [facility] RBC Auto (Bld) [#/Vol]on RBC (Bld) [#/Vol] 5.40 10*6/uL 4.6-6.2 [facility] Serum Creatinine AND GFRon 1 10-09-2023 Creatinine [Mass/Vol] 0.98 mg/dL Normal 0.70-1.30 [facility] Comment on above: Result Comment: The validity of the calculated GFR GFRAA in patients over 70 years has not been determined. Clinical correlation is essential. Performed By: #### L 100.0100, L500.3400, L501.1105, L101.9900, L501.6710 ####[facility] [address] [place], [place], [id number] EST GFR - AA 100 mL/min Normal >60 [facility] Comment on above: Result Comment: Afri can [place] GFR Calc Performed By: #### L 100.0100, L500.3400, L501.1105, L101.9900, L501.6710 ####[facility] [address] [facility] [place], [address] GFR/1.73 sq M.predicted among non-blacks MDRD (S/P/Bld) [Vol rate/Area] 83 mL/min/{1.73_m2} Normal >60 [facility] Comment on above: Result Comment: Non- GFR Calc Performed By: #### L 100.0100, L500.3400, L501.1105, L101.9900, L501.6710 ####[facility] [address] [facility] [place], [place], [id number] Serum globulin measurementon 08-08-2024 Globulin (S) [Mass/Vol] 3.2 g/dL 2.2-4.2 [facility] Serum or plasma alanine oleary otransferase (ALT) measurementon 08-08-2024 ALT [Catalytic activity/Vol] 29 U/L 16-61 [facility] Serum or plasma albumin kendra urement (mass/volume)on 08-08-2024 Albumin [Mass/Vol] 3.9 g/dL 3.2-5.0 [facility] Serum or plasma alkaline branden sphatase measurementon 08-08-2024 ALP [Catalytic activity/Vol] 95 U/L 45-117 [facility] Serum or plasma creatinine m easurement (mass/volume)on 08-08-2024 Creatinine [Mass/Vol] 0.98 mg/dL 0.70-1.30 [facility] Comment on above: The validity of the calculated GFR & GFRAA in patients over 70 years has not been determined. Clinical correlation is essential. Total proteinon 08-08-2024 Protein [Mass/Vol] 7.1 g/dL 6.4-8.2 [facility] White blood cell (WBC) count on 08-08-2024 WBC (Bld) [#/Vol] 6.7 10*3/uL 4.4-11.0 [facility] CBC, Employeeon 05-03-2024 Absolute Lymph 2.41 X10 3/uL Normal 0.83-4.51 [facility] Comment on above: Performed By: #### L 500.2900, L100.0200, L400.0100 ####[facility] [address] [place], [address] Absolute Neut 2.6 X10 3/uL Normal 2.0-7.7 [facility] Comment on above: Performed By: #### L 500.2900, L100.0200, L400.0100 ####[facility] [address] [place], [address] Basophils/100 WBC (Bld) 1.0 % Normal 0-1 [facility] Comment on above: Performed By: #### L 500.2900, L100.0200, L400.0100 ####[facility] [address] [place], [address] Eosinophils/100 WBC (Bld) 3.4 % Normal 0-5 [facility] Comment on above: Performed By: #### L 500.2900, L100.0200, L400.0100 ####[facility] [address] [place], [address] Erythrocyte distribution width (RBC) [Ratio] 13.2 % Normal 11.6-14.6 [facility] Comment on above: Performed By: #### L 500.2900, L100.0200, L400.0100 ####[facility] [address] [place], [address] Hematocrit (Bld) [Volume fraction] 48.4 % Normal 40-54 [facility] Comment on above: Performed By: #### L 500.2900, L100.0200, L400.0100 ####[facility] [address] [place], [address] Hemoglobin (Bld) [Mass/Vol] 16.2 g/dL Normal 13.0-16.5 [facility] Comment on above: Performed By: #### L 500.2900, L100.0200, L400.0100 ####[facility] [address] [place], [address] Lymphocytes/100 WBC (Bld) 41.2 % High 19-41 [facility] Comment on above: Performed By: #### L 500.2900, L100.0200, L400.0100 ####[facility] [address] [place], [address] MCH (RBC) [Entitic mass] 29.9 pg Normal 27.0-32.0 [facility] Comment on above: Performed By: #### L 500.2900, L100.0200, L400.0100 ####[facility] [address] [place], [address] MCHC (RBC) [Mass/Vol] 33.5 g/dL Normal 32-36 [facility] Comment on above: Performed By: #### L 500.2900, L100.0200, L400.0100 ####[facility] [address] [place], [address] MCV (RBC) [Entitic vol] 89.5 fL Normal 80-94 [facility] Comment on above: Performed By: #### L 500.2900, L100.0200, L400.0100 ####[facility] [address] [place], [address] Monocytes/100 WBC (Bld) 10.1 % High 0-10 [facility] Comment on above: Performed By: #### L 500.2900, L100.0200, L400.0100 ####[facility] [address] [place], [address] Neutrophils/100 WBC (Bld) 43.8 % Low 47-70 [facility] Comment on above: Performed By: #### L 500.2900, L100.0200, L400.0100 ####[facility] [address] [place], [address] NRBC # 0.00 10 3/uL Normal 0-5 [facility] Comment on above: Performed By: #### L 500.2900, L100.0200, L400.0100 ####[facility] [address] [place], [address] Nucleated RBC (Bld) [#/Vol] 0 10*3/uL Normal 0-5 [facility] Comment on above: Performed By: #### L 500.2900, L100.0200, L400.0100 ####[facility] [address] [place], [address] Platelet mean volume (Bld) [Entitic vol] 9.3 fL Normal 6.2-12.0 [facility] Comment on above: Performed By: #### L 500.2900, L100.0200, L400.0100 ####[facility] [address] [place], [address] Platelets (Bld) [#/Vol] 307 10*3/uL Normal 150-450 [facility] Comment on above: Performed By: #### L 500.2900, L100.0200, L400.0100 ####[facility] [address] [place], [address] RBC (Bld) [#/Vol] 5.41 10*6/uL Normal 4.6-6.2 [facility] Comment on above: Performed By: #### L 500.2900, L100.0200, L400.0100 ####[facility] [address] [place], [address] RDW SD 43.1 fl Normal 35.1-43.9 [facility] Comment on above: Performed By: #### L 500.2900, L100.0200, L400.0100 ####[facility] [address] [place], [address] WBC (Bld) [#/Vol] 5.9 10*3/uL Normal 4.4-11.0 [facility] Comment on above: Performed By: #### L 500.2900, L100.0200, L400.0100 ####[facility] [address] [place], [address] CRPon 05-03-2024 C-REACTIVE PROT < 2.90 Normal 0.0-3.0 [facility] Comment on above: Result Comment: C-Re active Protein (CRP) provides useful information for the diagnosis, therapy and monitoring of inflammatory processes and associated diseases. For the evaluation of Relative Risk for Cardiovascular Disease, a High Sensitivity CRP (HSCRP) should be ordered. Performed By: #### L 500.4100, L501.1105, L101.9900, L501.6710 ####[facility] [address] [place], [address] Employee Profileon Albumin [Mass/Vol] 3.5 g/dL Normal 3.2-5.0 [facility] Comment on above: Performed By: #### L 500.2900, L100.0200, L400.0100 ####[facility] [address] [place], [address] Albumin/Globulin [Mass ratio] 1.1 {ratio} Normal 0.9-2.4 [facility] Comment on above: Performed By: #### L 500.2900, L100.0200, L400.0100 ####[facility] [address] [place], [address] ALK P 96 U/L Normal 45-117 [facility] Comment on above: Performed By: #### L 500.2900, L100.0200, L400.0100 ####[facility] [address] [place], [address] ALT [Catalytic activity/Vol] 28 U/L Normal 16-61 [facility] Comment on above: Performed By: #### L 500.2900, L100.0200, L400.0100 ####[facility] [address] [place], [address] AST [Catalytic activity/Vol] 21 U/L Normal 15-37 [facility] Comment on above: Performed By: #### L 500.2900, L100.0200, L400.0100 ####[facility] [address] [place], [address] Bilirubin [Mass/Vol] 0.80 mg/dL Normal 0.20-1.00 [facility] Comment on above: Result Comment: For patients on eltrombopag therapy, use of Dim[place] TBIL is not recommended. Performed By: #### L 500.2900, L100.0200, L400.0100 ####[facility] [address] [place], [address] Bilirubin.direct [Mass/Vol] 0.18 mg/dL Normal 0.00-0.30 [facility] Comment on above: Performed By: #### L 500.2900, L100.0200, L400.0100 ####[facility] [address] [place], [address] BUN/CRE 15.2 RATIO Normal 10-20 [facility] Comment on above: Performed By: #### L 500.2900, L100.0200, L400.0100 ####[facility] [address] [place], [address] CA,Total 8.7 mg/dL Normal 8.5-10.1 [facility] Comment on above: Performed By: #### L 500.2900, L100.0200, L400.0100 ####[facility] [address] [place], [address] Chloride [Moles/Vol] 108 mmol/L High 98-107 [facility] Comment on above: Performed By: #### L 500.2900, L100.0200, L400.0100 ####[facility] [address] [place], [address] CHOL:HDL 3.50 Normal [facility] Comment on above: Performed By: #### L 500.2900, L100.0200, L400.0100 ####[facility] [address] [place], [address] Cholesterol [Mass/Vol] 192 mg/dL Normal 200 [facility] Comment on above: Result Comment: <200 mg/dL Desirable 200-240 mg/dL Borderline >240 mg/dL High Risk Performed By: #### L 500.2900, L100.0200, L400.0100 ####[facility] [address] [place], [address] Cholesterol in HDL [Mass/Vol] 55 mg/dL Normal [facility] Comment on above: Result Comment: The drugs N-Acetylcysteine and Metamizole may falsely depress this assay. Reference Range HDL <40 mg/dL Low HDL Cholesterol HDL >or= 60 mg/dL High HDL Cholesterol Performed By: #### L 500.2900, L100.0200, L400.0100 ####[facility] [address] [place], [address] Cholesterol in LDL [Mass/Vol] 111 mg/dL Normal 0-130 [facility] Comment on above: Performed By: #### L 500.2900, L100.0200, L400.0100 ####[facility] [address] [place], [address] Cholesterol in VLDL [Mass/Vol] 26 mg/dL Normal 5-40 [facility] Comment on above: Performed By: #### L 500.2900, L100.0200, L400.0100 ####[facility] [address] [place], [address] CO2 [Moles/Vol] 28.0 mmol/L Normal 21.0-32.0 [facility] Comment on above: Performed By: #### L 500.2900, L100.0200, L400.0100 ####[facility] [address] [place], [address] Creatinine [Mass/Vol] 0.92 mg/dL Normal 0.70-1.30 [facility] Comment on above: Result Comment: The validity of the calculated GFR GFRAA in patients over 70 years has not been determined. Clinical correlation is essential. Performed By: #### L 500.2900, L100.0200, L400.0100 ####[facility] [address] [place], [address] EST GFR - AA 108 mL/min Normal >60 [facility] Comment on above: Result Comment: Afri can [place] GFR Calc Performed By: #### L 500.2900, L100.0200, L400.0100 ####[facility] [address] [place], [address] GAP 3 Low 5-15 [facility] Comment on above: Performed By: #### L 500.2900, L100.0200, L400.0100 ####[facility] [address] [place], [address] GFR/1.73 sq M.predicted among non-blacks MDRD (S/P/Bld) [Vol rate/Area] 89 mL/min/{1.73_m2} Normal >60 [facility] Comment on above: Result Comment: Non- GFR Calc Performed By: #### L 500.2900, L100.0200, L400.0100 ####[facility] [address] [place], [address] Globulin (S) [Mass/Vol] 3.3 g/dL Normal 2.2-4.2 [facility] Comment on above: Performed By: #### L 500.2900, L100.0200, L400.0100 ####[facility] [address], [address] Glucose [Mass/Vol] 107 mg/dL High 74-106 [facility] Comment on above: Result Comment: Fast ing Glucose result from 100 to 125 mg/dL suggests IMPAIRED HOMEOSTASIS per A.D.A. criteria. Performed By: #### L 500.2900, L100.0200, L400.0100 ####[facility] [address] [place], [address] LDH 182 U/L Normal 87-241 [facility] Comment on above: Performed By: #### L 500.2900, L100.0200, L400.0100 ####[facility] [address] [place], [address] Phosphate [Mass/Vol] 2.5 mg/dL Normal 2.5-4.9 [facility] Comment on above: Performed By: #### L 500.2900, L100.0200, L400.0100 ####[facility] [address] [place], [address] Potassium [Moles/Vol] 4.4 mmol/L Normal 3.5-5.1 [facility] Comment on above: Performed By: #### L 500.2900, L100.0200, L400.0100 ####[facility] [address], [address] Sodium [Moles/Vol] 139 mmol/L Normal 136-145 [facility] Comment on above: Performed By: #### L 500.2900, L100.0200, L400.0100 ####[facility] [address] [place], [address] T PROT 6.8 g/dL Normal 6.4-8.2 [facility] Comment on above: Performed By: #### L 500.2900, L100.0200, L400.0100 ####[facility] [address] [place], [address] Triglyceride [Mass/Vol] 132 mg/dL Normal [facility] Comment on above: Result Comment: The drugs N-Acetylcysteine and Metamizole may falsely depress this assay. Serum Triglycerides Reference Interval Normal <150 mg/dL Borderline high 150 - 199 mg/dL High 200 - 499 mg/dL Very High > or = 500 mg/dL Performed By: #### L 500.2900, L100.0200, L400.0100 ####[facility] [address] [place], [address] Urea nitrogen [Mass/Vol] 14 mg/dL Normal 7-18 [facility] Comment on above: Performed By: #### L 500.2900, L100.0200, L400.0100 ####[facility] [address] [place], [address] URIC 6.0 mg/dL Normal 3.5-7.2 [facility] Comment on above: Result Comment: The drugs N-Acetylcysteine and Metamizole may falsely depress this assay. Performed By: #### L 500.2900, L100.0200, L400.0100 ####[facility] [address] [place], [address] Erythrocyte Sed Rateon 05-03 SED RATE 1 mm/hr Normal 0-20 [facility] Comment on above: Performed By: #### L 500.4100, L501.1105, L101.9900, L501.6710 ####[facility] [address] [place], [address] Lipid Profileon 05-03-2024 CHOL Normal 200 [facility] Comment on above: Result Comment: <200 mg/dL Desirable 200-240 mg/dL Borderline >240 mg/dL High Risk Performed By: #### L 500.4100, L501.1105, L101.9900, L501.6710 ####[facility] [address] [place], [address] HDL Normal [facility] Comment on above: Result Comment: The drugs N-Acetylcysteine and Metamizole may falsely depress this assay. Reference Range HDL <40 mg/dL Low HDL Cholesterol HDL >or= 60 mg/dL High HDL Cholesterol Performed By: #### L 500.4100, L501.1105, L101.9900, L501.6710 ####[facility] [address] [place], [address] LDL Normal 0-130 [facility] Comment on above: Performed By: #### L 500.4100, L501.1105, L101.9900, L501.6710 ####[facility] [address] [place], [address] TRIG Normal [facility] Comment on above: Result Comment: The drugs N-Acetylcysteine and Metamizole may falsely depress this assay. Serum Triglycerides Reference Interval Normal <150 mg/dL Borderline high 150 - 199 mg/dL High 200 - 499 mg/dL Very High > or = 500 mg/dL Performed By: #### L 500.4100, L501.1105, L101.9900, L501.6710 ####[facility] [address] [place], [address] VLDL Normal 5-40 [facility] Comment on above: Performed By: #### L 500.4100, L501.1105, L101.9900, L501.6710 ####[facility] [address] [place], [address] Serum Creatinine AND GFRon 05-03-2024 CREAT,SERUM Normal 0.70-1.30 [facility] Comment on above: Order Comment: ADD O N Result Comment: The validity of the calculated GFR GFRAA in patients over 70 years has not been determined. Clinical correlation is essential. Performed By: #### L 500.4100, L501.1105, L101.9900, L501.6710 ####[facility] [address] [place], [address] EST GFR Normal >60 [facility] Comment on above: Order Comment: ADD O N Result Comment: Non- GFR Calc Performed By: #### L 500.4100, L501.1105, L101.9900, L501.6710 ####[facility] [address] [place], [address] EST GFR - AA Normal >60 [facility] Comment on above: Order Comment: ADD O N Result Comment: Afri can [place] GFR Calc Performed By: #### L 500.4100, L501.1105, L101.9900, L501.6710 ####[facility] [address] [place], [address] Urinalysis, Employeeon 05-03 BILIRUBIN URINE Negative Normal Negative [facility] Comment on above: Performed By: #### L 500.2900, L100.0200, L400.0100 ####[facility] [address] [place], [address] Clarity (U) Clear Normal Clear [facility] Comment on above: Performed By: #### L 500.2900, L100.0200, L400.0100 ####[facility] [address] [place], [address] Color (U) Yellow Normal Yellow [facility] Comment on above: Performed By: #### L 500.2900, L100.0200, L400.0100 ####[facility] [address] [place], [address] GLUCOSE, UR Normal Normal Normal [facility] Comment on above: Performed By: #### L 500.2900, L100.0200, L400.0100 ####[facility] [address] [place], [address] KETONE UR Negative Normal Negative [facility] Comment on above: Performed By: #### L 500.2900, L100.0200, L400.0100 ####[facility] [address] [place], [address] LEUK ESTERASE Negative Normal Negative [facility] Comment on above: Performed By: #### L 500.2900, L100.0200, L400.0100 ####[facility] [address] [place], [address] Nitrite Ql (U) Negative Normal Negative [facility] Comment on above: Performed By: #### L 500.2900, L100.0200, L400.0100 ####[facility] [address] [place], [address] OCCULT BLOOD-UR Negative Normal Negative [facility] Comment on above: Performed By: #### L 500.2900, L100.0200, L400.0100 ####[facility] [address] [place], [address] pH UR 6.0 Normal 5.0 - 8.0 [facility] Comment on above: Performed By: #### L 500.2900, L100.0200, L400.0100 ####[facility] [address] [place], [address] PROT DIPSTX 15 mg/dl Abnormal Negative [facility] Comment on above: Performed By: #### L 500.2900, L100.0200, L400.0100 ####[facility] [address] [place], [address] SP.GR. DIPSTX 1.020 Normal 1.002-1.030 [facility] Comment on above: Performed By: #### L 500.2900, L100.0200, L400.0100 ####[facility] [address] [place], [address] UROBILI Normal Normal Normal [facility] Comment on above: Performed By: #### L 500.2900, L100.0200, L400.0100 ####[facility] [address] [place], [address] Neurology Visit Reporton Neurology Visit Report [facility] [address], [address] [place], [place] [address] OFFICE VISIT Date of Service: 02/09/24 MR#: [id number] Acct: [id number] Name: RAMU BARLOW Rep #: [id number] : 1965 Provider: Dr. 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 Accompanied by: Self Allergies No Known Allergies Allergy (Verified 02/09/24 15:48) 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, bilateral Psoriasis Adalimumab (Humira) long-term use Swelling of finger joint of left hand Morning joint stiffness of left hand Pain in thumb joint with movement of left hand Thyroid disease SVITLANA (obstructive sleep apnea) RLS (restless legs syndrome) Psoriatic arthritis Depressive disorder Bronchitis URI (upper respiratory infection) Left knee pain Osteoarthritis of left knee Arthritis Hypothyroidism GERD (gastroesophageal reflux disease) Surgical History Hx of colonoscopy History of hand surgery History of left knee replacement S/P left unicompartmental knee replacement S/P left knee arthroscopy Family History Father Diabetes Hypertension SVITLANA (obstructive sleep apnea) Other Arthritis Social History household members: spouse housing: house current occupational status: employed Smoking Status: Never smoker second hand exposure: No alcohol intake: current details: occasionally substance use type: does not use what type of physical activity do you participate in: none danny/congregational: Mosque seatbelt use: always additional social history: pt denies smoking, denies vaping, denies marijuana use, denies edibles, denies using aspirin, denies using ibuprofen HPI HPI Chief Complaint: Details: Interim History: Ramu returns for follow-up visit. He has a history of hypothyroidism, obstructive sleep apnea (he did not tolerate CPAP) and psoriatic arthritis. He began to experience tingling pain in the feet around 2015 and this progressed over time. His symptoms are worse in the evening. He also experiences feelings during which his feet feel hot or cold. He had also experienced occasional brief shock type sensation in the feet; this has diminished in frequency. He continues to experience tingling in the feet however this is not severe and is less prominent than in the past. He denied having weakness. He has a history of low back pain that is worsened with activity; his low back pain occurs intermittently and is triggered by activities that places strain on his lower back. He no longer experiences lower extremity radicular pain. He has had physical therapy and this has been of benefit for his back pain. He was evaluated by an orthopedic surgeon, Dr. Cifuentes, and lumbar surgery was not felt to be warranted. He has had chronic neck pain due to arthritis. He has occasional transient numbness and tingling which occurs at night and is alleviated with position change of his upper extremities. His hand tingling is mild. His hand symptoms had for started around around 2014. He has leg restlessness at night which is alleviated by leg movement. A trial of ropinirole in years past was not well-tolerated. His leg restlessness is not a prominent symptom. He had a partial left knee replacement. He consumes about 3-4 drinks of alcohol per week. Duloxetine was of benefit for his neuropathic pain however he experienced side effects of tremulousness and sexual dysfunction that occurred despite a reduction of his dose of duloxetine to 30 mg every other day; duloxetine was subsequently discontinued. He did not have worsening of his neuropathic pain following discontinuation of duloxetine. His B12 level is near the low end of the normal range. A B12 injection was not of symptomatic benefit. He denied having fatigue. Physical Exam: Neuro: The patient is awake and alert and responds appropriately; speech is fluent; motor strength is 5/5 in the abductor pollicis brevis bilaterally, first dorsal interosseous bilaterally, an (more content not included)... Normal [facility] CBC W/Diff, Automatedon 05 Absolute Lymph 1.73 X10 3/uL Normal 0.83-4.51 [facility] Comment on above: Performed By: #### L 501.1105, L101.9900, L500.3400, L501.6710, L100.0100 #### [facility] [address] [place], [address] Absolute Neut 2.9 X10 3/uL Normal 2.0-7.7 [facility] Comment on above: Performed By: #### L 501.1105, L101.9900, L500.3400, L501.6710, L100.0100 #### [facility] [address] [place], [address] Basophils/100 WBC (Bld) 0.8 % Normal 0-1 [facility] Comment on above: Performed By: #### L 501.1105, L101.9900, L500.3400, L501.6710, L100.0100 #### [facility] [address] [place], [address] Eosinophils/100 WBC (Bld) 2.6 % Normal 0-5 [facility] Comment on above: Performed By: #### L 501.1105, L101.9900, L500.3400, L501.6710, L100.0100 #### [facility] [address] [place], [address] Erythrocyte distribution width (RBC) [Ratio] 12.6 % Normal 11.6-14.6 [facility] Comment on above: Performed By: #### L 501.1105, L101.9900, L500.3400, L501.6710, L100.0100 #### [facility] [address] [place], [address] Hematocrit (Bld) [Volume fraction] 47.9 % Normal 40-54 [facility] Comment on above: Performed By: #### L 501.1105, L101.9900, L500.3400, L501.6710, L100.0100 #### [facility] [address] [place], [address] Hemoglobin (Bld) [Mass/Vol] 16.0 g/dL Normal 13.0-16.5 [facility] Comment on above: Performed By: #### L 501.1105, L101.9900, L500.3400, L501.6710, L100.0100 #### [facility] [address] [place], [address] IG% 0.400 Normal 0.0-0.9 [facility] Comment on above: Result Comment: IG% - Immature Granulocytes (promyelocytes, myelocytes and metamyelocytes) > 1% indicates that a LEFT SHIFT is Present. Performed By: #### L 501.1105, L101.9900, L500.3400, L501.6710, L100.0100 #### [facility] [address] [place], [address] Lymphocytes/100 WBC (Bld) 32.7 % Normal 19-41 [facility] Comment on above: Performed By: #### L 501.1105, L101.9900, L500.3400, L501.6710, L100.0100 #### [facility] [address] [place], [address] MCH (RBC) [Entitic mass] 30.4 pg Normal 27.0-32.0 [facility] Comment on above: Performed By: #### L 501.1105, L101.9900, L500.3400, L501.6710, L100.0100 #### [facility] [address] [place], [address] MCHC (RBC) [Mass/Vol] 33.4 g/dL Normal 32-36 [facility] Comment on above: Performed By: #### L 501.1105, L101.9900, L500.3400, L501.6710, L100.0100 #### [facility] [address] [place], [address] MCV (RBC) [Entitic vol] 90.9 fL Normal 80-94 [facility] Comment on above: Performed By: #### L 501.1105, L101.9900, L500.3400, L501.6710, L100.0100 #### [facility] [address] [place], [address] Monocytes/100 WBC (Bld) 9.5 % Normal 0-10 [facility] Comment on above: Performed By: #### L 501.1105, L101.9900, L500.3400, L501.6710, L100.0100 #### [facility] [address] [place], [address] Neutrophils/100 WBC (Bld) 54.0 % Normal 47-70 [facility] Comment on above: Performed By: #### L 501.1105, L101.9900, L500.3400, L501.6710, L100.0100 #### [facility] [address] [place], [address] Nucleated RBC (Bld) [#/Vol] 0 10*3/uL Normal 0-5 [facility] Comment on above: Performed By: #### L 501.1105, L101.9900, L500.3400, L501.6710, L100.0100 #### [facility] [address] [place], [address] Platelet mean volume (Bld) [Entitic vol] 9.7 fL Normal 6.2-12.0 [facility] Comment on above: Performed By: #### L 501.1105, L101.9900, L500.3400, L501.6710, L100.0100 #### [facility] [address] [place], [address] Platelets (Bld) [#/Vol] 310 10*3/uL Normal 150-450 [facility] Comment on above: Performed By: #### L 501.1105, L101.9900, L500.3400, L501.6710, L100.0100 #### [facility] [address] [place], [address] RBC (Bld) [#/Vol] 5.27 10*6/uL Normal 4.6-6.2 [facility] Comment on above: Performed By: #### L 501.1105, L101.9900, L500.3400, L501.6710, L100.0100 #### [facility] [address] [place], [address] RDW SD 42.0 fl Normal 35.1-43.9 [facility] Comment on above: Performed By: #### L 501.1105, L101.9900, L500.3400, L501.6710, L100.0100 #### [facility] [address] [place], [address] WBC (Bld) [#/Vol] 5.3 10*3/uL Normal 4.4-11.0 [facility] Comment on above: Performed By: #### L 501.1105, L101.9900, L500.3400, L501.6710, L100.0100 #### [facility] [address] [place], [address] CRPon 01-25-2024 C-REACTIVE PROT < 2.90 Normal 0.0-3.0 [facility] Comment on above: Result Comment: C-Re active Protein (CRP) provides useful information for the diagnosis, therapy and monitoring of inflammatory processes and associated diseases. For the evaluation of Relative Risk for Cardiovascular Disease, a High Sensitivity CRP (HSCRP) should be ordered. Performed By: #### L 501.1105, L101.9900, L500.3400, L501.6710, L100.0100 #### [facility] [address] [place], [address] Erythrocyte Sed Rateon 01-24 SED RATE 2 mm/hr Normal 0-20 [facility] Comment on above: Performed By: #### L 501.1105, L101.9900, L500.3400, L501.6710, L100.0100 #### [facility] [address] [place], [address] Liver Profileon 01-25-2024 Albumin [Mass/Vol] 3.6 g/dL Normal 3.2-5.0 [facility] Comment on above: Performed By: #### L 501.1105, L101.9900, L500.3400, L501.6710, L100.0100 #### [facility] [address] [place], [address] ALK P 91 U/L Normal 45-117 [facility] Comment on above: Performed By: #### L 501.1105, L101.9900, L500.3400, L501.6710, L100.0100 #### [facility] [address] [place], [address] ALT [Catalytic activity/Vol] 25 U/L Normal 16-61 [facility] Comment on above: Performed By: #### L 501.1105, L101.9900, L500.3400, L501.6710, L100.0100 #### [facility] [address] [place], [address] AST [Catalytic activity/Vol] 21 U/L Normal 15-37 [facility] Comment on above: Performed By: #### L 501.1105, L101.9900, L500.3400, L501.6710, L100.0100 #### [facility] [address] [place], [address] Bilirubin [Mass/Vol] 0.50 mg/dL Normal 0.20-1.00 [facility] Comment on above: Result Comment: For patients on eltrombopag therapy, use of Dimension [place] TBIL is not recommended. Performed By: #### L 501.1105, L101.9900, L500.3400, L501.6710, L100.0100 #### [facility] [address] [place], [address] Bilirubin.direct [Mass/Vol] 0.13 mg/dL Normal 0.00-0.30 [facility] Comment on above: Performed By: #### L 501.1105, L101.9900, L500.3400, L501.6710, L100.0100 #### [facility] [address] [place], [address] Globulin (S) [Mass/Vol] 3.2 g/dL Normal 2.2-4.2 [facility] Comment on above: Performed By: #### L 501.1105, L101.9900, L500.3400, L501.6710, L100.0100 #### [facility] [address] [place], [address] T PROT 6.8 g/dL Normal 6.4-8.2 [facility] Comment on above: Performed By: #### L 501.1105, L101.9900, L500.3400, L501.6710, L100.0100 #### [facility] [address] [place], [address] Serum Creatinine AND GFRon 0 - Creatinine [Mass/Vol] 0.89 mg/dL Normal 0.70-1.30 [facility] Comment on above: Result Comment: The validity of the calculated GFR GFRAA in patients over 70 years has not been determined. Clinical correlation is essential. Performed By: #### L 501.1105, L101.9900, L500.3400, L501.6710, L100.0100 #### [facility] [address] [place], [address] EST GFR - AA 112 mL/min Normal >60 [facility] Comment on above: Result Comment: Afri can [place] GFR Calc Performed By: #### L 501.1105, L101.9900, L500.3400, L501.6710, L100.0100 #### [facility] [address] [place], [address] GFR/1.73 sq M.predicted among non-blacks MDRD (S/P/Bld) [Vol rate/Area] 93 mL/min/{1.73_m2} Normal >60 [facility] Comment on above: Result Comment: Non- GFR Calc Performed By: #### L 501.1105, L101.9900, L500.3400, L501.6710, L100.0100 #### [facility] [place], [address] Absolute lymphocyte counton 09-15-2023 Lymphocytes Auto (Unsp spec) [#/Vol] 2.13 10*3/uL 0.83-4.51 [facility] Basophil percentageon 2023 Basophils/100 WBC (Bld) 0.5 % 0-1 [facility] Bilirubin [Mass/Vol] 0.70 mg/dL 0.20-1.00 [facility] Comment on above: For patients on eltr ombopag therapy, use of [place] TBIL is not recommended. Eosinophils/100 WBC (Bld) 3.0 % 0-5 [facility] Neutrophils (Bld) [#/Vol] 2.8 10*3/uL 2.0-7.7 [facility] Neutrophils/100 WBC (Bld) 49.5 % 47-70 [facility] Protein [Mass/Vol] 6.8 g/dL 6.4-8.2 [facility] WBC (Bld) [#/Vol] 5.6 10*3/uL 4.4-11.0 [facility] Blood erythrocytes count (nu mber/volume)on 09-15-2023 RBC (Bld) [#/Vol] 5.14 10*6/uL 4.6-6.2 [facility] Blood hemoglobin measurement (mass/volume)on 09-15-2023 Hemoglobin (Bld) [Mass/Vol] 16.1 g/dL 13.0-16.5 [facility] Blood lymphocytes/100 leukoc yteson 09-15-2023 Lymphocytes/100 WBC (Bld) 37.8 % 19-41 [facility] Blood monocytes/100 leukocyt eson 09-15-2023 Monocytes/100 WBC (Bld) 8.7 % 0-10 [facility] Blood platelet mean volumeon 09-15-2023 Platelet mean volume (Bld) [Entitic vol] 8.9 fL 6.2-12.0 [facility] Determination of erythrocyte mean corpuscular volume (MCV)on 09-15-2023 MCV (RBC) [Entitic vol] 88.9 fL 80-94 [facility] Direct bilirubinon Bilirubin.direct [Mass/Vol] 0.11 mg/dL 0.00-0.30 [facility] Erythrocyte sedimentation ra sonya 09-15-2023 ESR (Bld) [Velocity] 4 mm/h 0-20 [facility] Hematocrit Auto (Bld) [Volum e fraction]on 09-15-2023 Hematocrit (Bld) [Volume fraction] 45.7 % 40-54 [facility] - Chemistry and C hemistry - challengeon 09-15-2023 ALP [Catalytic activity/Vol] 89 U/L 45-117 [facility] ALT [Catalytic activity/Vol] 22 U/L 16-61 [facility] Globulin (S) [Mass/Vol] 3.4 g/dL 2.2-4.2 [facility] - Hematology and Cell countson 09-15-2023 Erythrocyte distribution width (RBC) [Entitic vol] 41.2 fL 35.1-43.9 [facility] Erythrocyte distribution width (RBC) [Ratio] 12.5 % 11.6-14.6 [facility] Immature granulocytes/100 WBC (Bld) 0.500 % 0.0-0.9 [facility] Comment on above: IG% - Immature Granu locytes (promyelocytes, myelocytes and metamyelocytes) > 1% indicates that a LEFT SHIFT is Present. MCH (RBC) [Entitic mass] 31.3 pg 27.0-32.0 [facility] Nucleated RBC/100 WBC (Bld) [Ratio] 0 % 0-5 [facility] MCHC Auto (RBC) [Mass/Vol]on 09-15-2023 MCHC (RBC) [Mass/Vol] 35.2 g/dL 32-36 [facility] No Panel Informationon 09-15 Estimated GFR (MDRD) Amer 100 mL/min >60 [facility] Comment on above: GFR Calc Estimated GFR (MDRD) Non-Af Amer 83 mL/min >60 [facility] Comment on above: Non- GFR Calc Platelets bldon 09-15-2023 Platelets (Bld) [#/Vol] 318 10*3/uL 150-450 [facility] Serum or plasma C reactive p rotein measurement (mass/volume)on 09-15-2023 CRP [Mass/Vol] mg/L 0.0-3.0 [facility] Comment on above: C-Reactive Protein ( CRP) provides useful information for thediagnosis, therapy and monitoring of inflammatory processesand associated diseases. For the evaluation of Relative Riskfor Cardiovascular Disease, a High Sensitivity CRP (HSCRP)should be ordered. Serum or plasma albumin kendra urement (mass/volume)on 09-15-2023 Albumin [Mass/Vol] 3.4 g/dL 3.2-5.0 [facility] Serum or plasma creatinine m easurement (mass/volume)on 09-15-2023 Creatinine [Mass/Vol] 0.98 mg/dL 0.70-1.30 [facility] Comment on above: The validity of the calculated GFR & GFRAA in patients over 70 years has not been determined. Clinical correlation is essential. Thin prep Papanicolaou smear with manual screeningon 09-15-2023 Thin prep Papanicolaou smear with manual screening 15 U/L 15-37 [facility] Absolute lymphocyte countOrd ered By: HEALTH ASSESSMENT on 06-22-2023 Lymphocytes Auto (Unsp spec) [#/Vol] 2.02 10*3/uL 0.83-4.51 [facility] Absolute reticulocyte countO rdered By: HEALTH ASSESSMENT on 06-22-2023 Reticulocytes (Bld) [#/Vol] 0.00 10*3/uL 0-5 [facility] Basophil percentageOrdered B y: HEALTH ASSESSMENT on 06-22-2023 Basophil percentage 2.9 mg/dL 2.5-4.9 [facility] Bilirubin [Mass/Vol] 0.30 mg/dL 0.20-1.00 [facility] Comment on above: For patients on eltr ombopag therapy, use of [place] TBIL is not recommended. Chloride [Moles/Vol] 109 mmol/L 98-107 [facility] Cholesterol [Mass/Vol] 181 mg/dL <200 [facility] Comment on above: <200 mg/dL Desirable 200-240 mg/dL Borderline >240 mg/dL High Risk Glucose [Mass/Vol] 85 mg/dL 74-106 [facility] LDH [Catalytic activity/Vol] 218 U/L 87-241 [facility] Comment on above: Slight Hemolysis, Re sult may be falsely increased. Neutrophils (Bld) [#/Vol] 2.8 10*3/uL 2.0-7.7 [facility] Potassium [Moles/Vol] 3.9 mmol/L 3.5-5.1 [facility] Comment on above: Slight Hemolysis, Re sult may be falsely increased. Protein [Mass/Vol] 7.2 g/dL 6.4-8.2 [facility] Sodium [Moles/Vol] 141 mmol/L 136-145 [facility] Triglyceride [Mass/Vol] 361 mg/dL <199 [facility] Comment on above: The drugs N-Acetylcy steine and Metamizole may falsely depress this assay.Serum Triglycerides Reference Interval Normal <150 mg/dL Borderline high 150 - 199 mg/dL High 200 - 499 mg/dL Very High > or = 500 mg/dL WBC (Bld) [#/Vol] 5.7 10*3/uL 4.4-11.0 [facility] Blood erythrocytes count (nu mber/volume)Ordered By: HEALTH ASSESSMENT on 06-22-2023 RBC (Bld) [#/Vol] 5.42 10*6/uL 4.6-6.2 [facility] Blood hemoglobin measurement (mass/volume)Ordered By: HEALTH ASSESSMENT on 06-22-2023 Hemoglobin (Bld) [Mass/Vol] 16.5 g/dL 13.0-16.5 [facility] Blood platelet mean volumeOr dered By: HEALTH ASSESSMENT on 06-22-2023 Platelet mean volume (Bld) [Entitic vol] 9.2 fL 6.2-12.0 [facility] Determination of erythrocyte mean corpuscular volume (MCV)Ordered By: HEALTH ASSESSMENT on 06-22-2023 MCV (RBC) [Entitic vol] 92.8 fL 80-94 [facility] Direct bilirubinOrdered By: HEALTH ASSESSMENT on 06-22-2023 Bilirubin.direct [Mass/Vol] 0.10 mg/dL 0.00-0.30 [facility] Hematocrit Auto (Bld) [Volum e fraction]Ordered By: HEALTH ASSESSMENT on 06-22-2023 Hematocrit (Bld) [Volume fraction] 50.3 % 40-54 [facility] Laboratory - Chemistry and C hemistry - challengeOrdered By: HEALTH ASSESSMENT on 06-22-2023 ALP [Catalytic activity/Vol] 99 U/L 45-117 [facility] ALT [Catalytic activity/Vol] 28 U/L 16-61 [facility] Cholesterol.total/Cholest priscilla in HDL [Mass ratio] 4.30 {ratio} [facility] CO2 [Moles/Vol] 28.0 mmol/L 21.0-32.0 [facility] Globulin (S) [Mass/Vol] 3.7 g/dL 2.2-4.2 [facility] Urea nitrogen/Creatinine [Mass ratio] 14.9 mg/mg 10-20 [facility] Laboratory - Hematology and Cell countsOrdered By: HEALTH ASSESSMENT on 06-22-2023 Erythrocyte distribution width (RBC) [Entitic vol] 45.0 fL 35.1-43.9 [facility] Erythrocyte distribution width (RBC) [Ratio] 13.2 % 11.6-14.6 [facility] MCH (RBC) [Entitic mass] 30.4 pg 27.0-32.0 [facility] Nucleated RBC/100 WBC (Bld) [Ratio] 0 % 0-5 [facility] MCHC Auto (RBC) [Mass/Vol]Or dered By: HEALTH ASSESSMENT on 06-22-2023 MCHC (RBC) [Mass/Vol] 32.8 g/dL 32-36 [facility] No Panel InformationOrdered By: HEALTH ASSESSMENT on 06-22-2023 Estimated GFR (MDRD) Amer 106 mL/min >60 [facility] Comment on above: GFR Calc Estimated GFR (MDRD) Non-Af Amer 87 mL/min >60 [facility] Comment on above: Non- GFR Calc Platelets bldOrdered By: MINI LTH ASSESSMENT on 06-22-2023 Platelets (Bld) [#/Vol] 331 10*3/uL 150-450 [facility] Segmented neutrophils/100 WB C Auto (Bld)Ordered By: HEALTH ASSESSMENT on 06-22-2023 Segmented neutrophils/100 WBC (Bld) 48.5 % 47-70 [facility] Serum or plasma albumin kendra urement (mass/volume)Ordered By: HEALTH ASSESSMENT on 06-22-2023 Albumin [Mass/Vol] 3.5 g/dL 3.2-5.0 [facility] Serum or plasma albumin/glob ulin mass ratioOrdered By: HEALTH ASSESSMENT on 06-22-2023 Albumin/Globulin [Mass ratio] 0.9 {ratio} 0.9-2.4 [facility] Serum or plasma calcium kendra urement (mass/volume)Ordered By: HEALTH ASSESSMENT on 06-22-2023 Calcium [Mass/Vol] 8.3 mg/dL 8.5-10.1 [facility] Serum or plasma cholesterol in HDL measurement (mass/volume)Ordered By: HEALTH ASSESSMENT on 06-22-2023 Cholesterol in HDL [Mass/Vol] 42 mg/dL >40 [facility] Comment on above: The drugs N-Acetylcy steine and Metamizole may falsely depress this assay. Reference Range HDL <40 mg/dL Low HDL Cholesterol HDL >or= 60 mg/dL High HDL Cholesterol Serum or plasma cholesterol in VLDL measurement (mass/volume)Ordered By: HEALTH ASSESSMENT on 06-22-2023 Cholesterol in VLDL [Mass/Vol] 72 mg/dL 5-40 [facility] Serum or plasma creatinine m easurement (mass/volume)Ordered By: HEALTH ASSESSMENT on 06-22-2023 Creatinine [Mass/Vol] 0.94 mg/dL 0.70-1.30 [facility] Comment on above: The validity of the calculated GFR & GFRAA in patients over 70 years has not been determined. Clinical correlation is essential. Serum or plasma low density lipoprotein (LDL) cholesterol measurement (mass/volume)Ordered By: HEALTH ASSESSMENT on 06-22-2023 Cholesterol in LDL [Mass/Vol] 67 mg/dL 0-130 [facility] Serum or plasma urea nitroge n measurement (mass/volume)Ordered By: HEALTH ASSESSMENT on 06-22-2023 Urea nitrogen [Mass/Vol] 14 mg/dL 7-18 [facility] Serum or plasma uric acid me asurement (mass/volume)Ordered By: HEALTH ASSESSMENT on 06-22-2023 Urate [Mass/Vol] 5.7 mg/dL 3.5-7.2 [facility] Comment on above: The drugs N-Acetylcy steine and Metamizole may falsely depress this assay. Thin prep Papanicolaou smear with manual screeningOrdered By: HEALTH ASSESSMENT on 06-22-2023 Thin prep Papanicolaou smear with manual screening 20 U/L 15-37 [facility] Comment on above: Slight Hemolysis, Re sult may be falsely increased. Thin prep Papanicolaou smear with manual screening 4 5-15 [facility] Absolute lymphocyte counton 06-16-2023 Lymphocytes Auto (Unsp spec) [#/Vol] 2.39 10*3/uL 0.83-4.51 [facility] Basophil percentageon 2022 Basophils/100 WBC (Bld) 0.9 % 0-1 [facility] Bilirubin [Mass/Vol] 0.60 mg/dL 0.20-1.00 [facility] Comment on above: For patients on eltr ombopag therapy, use of [place] TBIL is not recommended. Eosinophils/100 WBC (Bld) 2.4 % 0-5 [facility] Neutrophils (Bld) [#/Vol] 2.4 10*3/uL 2.0-7.7 [facility] Neutrophils/100 WBC (Bld) 42.7 % 47-70 [facility] Protein [Mass/Vol] 6.9 g/dL 6.4-8.2 [facility] WBC (Bld) [#/Vol] 5.5 10*3/uL 4.4-11.0 [facility] Blood erythrocytes count (nu mber/volume)on 06-16-2023 RBC (Bld) [#/Vol] 5.34 10*6/uL 4.6-6.2 [facility] Blood hemoglobin measurement (mass/volume)on 06-16-2023 Hemoglobin (Bld) [Mass/Vol] 15.9 g/dL 13.0-16.5 [facility] Blood lymphocytes/100 leukoc yteson 06-16-2023 Lymphocytes/100 WBC (Bld) 43.4 % 19-41 [facility] Blood monocytes/100 leukocyt eson 06-16-2023 Monocytes/100 WBC (Bld) 10.2 % 0-10 [facility] Blood platelet mean volumeon 06-16-2023 Platelet mean volume (Bld) [Entitic vol] 9.5 fL 6.2-12.0 [facility] Determination of erythrocyte mean corpuscular volume (MCV)on 06-16-2023 MCV (RBC) [Entitic vol] 91.9 fL 80-94 [facility] Direct bilirubinon Bilirubin.direct [Mass/Vol] 0.13 mg/dL 0.00-0.30 [facility] Erythrocyte sedimentation ra sonya 06-16-2023 ESR (Bld) [Velocity] 2 mm/h 0-20 [facility] Hematocrit Auto (Bld) [Volum e fraction]on 06-16-2023 Hematocrit (Bld) [Volume fraction] 49.1 % 40-54 [facility] Laboratory - Chemistry and C hemistry - challengeon 06-16-2023 ALP [Catalytic activity/Vol] 90 U/L 45-117 [facility] ALT [Catalytic activity/Vol] 26 U/L 16-61 [facility] Globulin (S) [Mass/Vol] 3.4 g/dL 2.2-4.2 [facility] Laboratory - Hematology and Cell countson 06-16-2023 Erythrocyte distribution width (RBC) [Entitic vol] 44.7 fL 35.1-43.9 [facility] Erythrocyte distribution width (RBC) [Ratio] 13.2 % 11.6-14.6 [facility] Immature granulocytes/100 WBC (Bld) 0.400 % 0.0-0.9 [facility] Comment on above: IG% - Immature Granu locytes (promyelocytes, myelocytes and metamyelocytes) > 1% indicates that a LEFT SHIFT is Present. MCH (RBC) [Entitic mass] 29.8 pg 27.0-32.0 [facility] Nucleated RBC/100 WBC (Bld) [Ratio] 0 % 0-5 [facility] MCHC Auto (RBC) [Mass/Vol]on 06-16-2023 MCHC (RBC) [Mass/Vol] 32.4 g/dL 32-36 [facility] No Panel Informationon 06-16 Estimated GFR (MDRD) Amer 106 mL/min >60 [facility] Comment on above: GFR Calc Estimated GFR (MDRD) Non-Af Amer 87 mL/min >60 [facility] Comment on above: Non- GFR Calc Platelets bldon 06-16-2023 Platelets (Bld) [#/Vol] 318 10*3/uL 150-450 [facility] Serum or plasma C reactive p rotein measurement (mass/volume)on 06-16-2023 CRP [Mass/Vol] mg/L 0.0-3.0 [facility] Comment on above: C-Reactive Protein ( CRP) provides useful information for thediagnosis, therapy and monitoring of inflammatory processesand associated diseases. For the evaluation of Relative Riskfor Cardiovascular Disease, a High Sensitivity CRP (HSCRP)should be ordered. Serum or plasma albumin kendra urement (mass/volume)on 06-16-2023 Albumin [Mass/Vol] 3.5 g/dL 3.2-5.0 [facility] Serum or plasma creatinine m easurement (mass/volume)on 06-16-2023 Creatinine [Mass/Vol] 0.94 mg/dL 0.70-1.30 [facility] Comment on above: The validity of the calculated GFR & GFRAA in patients over 70 years has not been determined. Clinical correlation is essential. Thin prep Papanicolaou smear with manual screeningon 06-16-2023 Thin prep Papanicolaou smear with manual screening 16 U/L 15-37 [facility] Absolute lymphocyte countOrd ered By: Jose Caro on 03-09-2023 Lymphocytes Auto (Unsp spec) [#/Vol] 3.42 10*3/uL 0.83-4.51 [facility] Basophil percentageOrdered B y: Jose Caro on 03-09-2023 Basophils/100 WBC (Bld) 0.8 % 0-1 [facility] Bilirubin [Mass/Vol] 0.50 mg/dL 0.20-1.00 [facility] Comment on above: For patients on eltr ombopag therapy, use of [place] TBIL is not recommended. Eosinophils/100 WBC (Bld) 2.7 % 0-5 [facility] Neutrophils (Bld) [#/Vol] 2.4 10*3/uL 2.0-7.7 [facility] Neutrophils/100 WBC (Bld) 36.7 % 47-70 [facility] Protein [Mass/Vol] 7.5 g/dL 6.4-8.2 [facility] WBC (Bld) [#/Vol] 6.6 10*3/uL 4.4-11.0 [facility] Blood erythrocytes count (nu mber/volume)Ordered By: Jose Caro on 03-09-2023 RBC (Bld) [#/Vol] 5.52 10*6/uL 4.6-6.2 [facility] Blood hemoglobin measurement (mass/volume)Ordered By: Jose Caro on 03-09-2023 Hemoglobin (Bld) [Mass/Vol] 16.5 g/dL 13.0-16.5 [facility] Blood lymphocytes/100 leukoc ytesOrdered By: Jose Caro on 03-09-2023 Lymphocytes/100 WBC (Bld) 51.9 % 19-41 [facility] Blood monocytes/100 leukocyt esOrdered By: Jose Caro on 03-09-2023 Monocytes/100 WBC (Bld) 7.3 % 0-10 [facility] Blood platelet mean volumeOr dered By: Jose Caro on 03-09-2023 Platelet mean volume (Bld) [Entitic vol] 9.6 fL 6.2-12.0 [facility] Determination of erythrocyte mean corpuscular volume (MCV)Ordered By: Jose Caro on 03-09-2023 MCV (RBC) [Entitic vol] 92.4 fL 80-94 [facility] Direct bilirubinOrdered By: Jose Caro on 03-09-2023 Bilirubin.direct [Mass/Vol] 0.11 mg/dL 0.00-0.30 [facility] Erythrocyte sedimentation ra teOrdered By: Jose Caro on 03-09-2023 ESR (Bld) [Velocity] 4 mm/h 0-20 [facility] Hematocrit Auto (Bld) [Volum e fraction]Ordered By: Jose Caro on 03-09-2023 Hematocrit (Bld) [Volume fraction] 51.0 % 40-54 [facility] Laboratory - Chemistry and C hemistry - challengeOrdered By: Jose Caro on 03-09-2023 ALP [Catalytic activity/Vol] 100 U/L 45-117 [facility] ALT [Catalytic activity/Vol] 27 U/L 16-61 [facility] Globulin (S) [Mass/Vol] 3.9 g/dL 2.2-4.2 [facility] Laboratory - Hematology and Cell countsOrdered By: Jose Caro on 03-09-2023 Erythrocyte distribution width (RBC) [Entitic vol] 43.8 fL 35.1-43.9 [facility] Erythrocyte distribution width (RBC) [Ratio] 12.9 % 11.6-14.6 [facility] Immature granulocytes/100 WBC (Bld) 0.600 % 0.0-0.9 [facility] Comment on above: IG% - Immature Granu locytes (promyelocytes, myelocytes and metamyelocytes) > 1% indicates that a LEFT SHIFT is Present. MCH (RBC) [Entitic mass] 29.9 pg 27.0-32.0 [facility] Nucleated RBC/100 WBC (Bld) [Ratio] 0 % 0-5 [facility] MCHC Auto (RBC) [Mass/Vol]Or dered By: Jose Caro on 03-09-2023 MCHC (RBC) [Mass/Vol] 32.4 g/dL 32-36 [facility] No Panel InformationOrdered By: Jose Caro on 03-09-2023 Estimated GFR (MDRD) Amer 109 mL/min >60 [facility] Comment on above: GFR Calc Estimated GFR (MDRD) Non-Af Amer 90 mL/min >60 [facility] Comment on above: Non- GFR Calc Platelets bldOrdered By: Nirmal Caro on 03-09-2023 Platelets (Bld) [#/Vol] 365 10*3/uL 150-450 [facility] Serum or plasma C reactive p rotein measurement (mass/volume)Ordered By: Jose Caro on 03-09-2023 CRP [Mass/Vol] 7.78 mg/L 0.0-3.0 [facility] Comment on above: C-Reactive Protein ( CRP) provides useful information for thediagnosis, therapy and monitoring of inflammatory processesand associated diseases. For the evaluation of Relative Riskfor Cardiovascular Disease, a High Sensitivity CRP (HSCRP)should be ordered. Serum or plasma albumin kendra urement (mass/volume)Ordered By: Jose Caro on 03-09-2023 Albumin [Mass/Vol] 3.6 g/dL 3.2-5.0 [facility] Serum or plasma creatinine m easurement (mass/volume)Ordered By: Jose Caro on 03-09-2023 Creatinine [Mass/Vol] 0.91 mg/dL 0.70-1.30 [facility] Comment on above: The validity of the calculated GFR & GFRAA in patients over 70 years has not been determined. Clinical correlation is essential. Thin prep Papanicolaou smear with manual screeningOrdered By: Jose Caro on 03-09-2023 Thin prep Papanicolaou smear with manual screening 24 U/L 15-37 [facility] Basophil percentageOrdered B y: Ash Mcpherson on 03-02-2023 Chloride [Moles/Vol] 108 mmol/L 98-107 [facility] Cholesterol [Mass/Vol] 179 mg/dL <200 [facility] Comment on above: <200 mg/dL Desirable 200-240 mg/dL Borderline >240 mg/dL High Risk Glucose [Mass/Vol] 99 mg/dL 74-106 [facility] Potassium [Moles/Vol] 4.3 mmol/L 3.5-5.1 [facility] Sodium [Moles/Vol] 140 mmol/L 136-145 [facility] Triglyceride [Mass/Vol] 268 mg/dL <199 [facility] Comment on above: The drugs N-Acetylcy steine and Metamizole may falsely depress this assay.Serum Triglycerides Reference Interval Normal <150 mg/dL Borderline high 150 - 199 mg/dL High 200 - 499 mg/dL Very High > or = 500 mg/dL Laboratory - Chemistry and C hemistry - challengeOrdered By: Ash Mcpherson on 03-02-2023 CO2 [Moles/Vol] 28.0 mmol/L 21.0-32.0 [facility] Free T4 [Mass/Vol] 1.04 ng/dL 0.76-1.46 [facility] Urea nitrogen/Creatinine [Mass ratio] 15.8 mg/mg 10-20 [facility] No Panel InformationOrdered By: Ash Mcpherson on 03-02-2023 Estimated GFR (MDRD) Amer 105 mL/min >60 [facility] Comment on above: GFR Calc Estimated GFR (MDRD) Non-Af Amer 87 mL/min >60 [facility] Comment on above: Non- GFR Calc Free Triiodothyronine (T3) pg/dL 2.5 pg/mL 2.18-3.98 [facility] Prostate Specific Antigen Screen 2.12 ng/mL 0.00-4.00 [facility] Comment on above: This test was perfor med using the TPSA assay method for the[employer] chemistry system. Values obtained with differentassay methods cannot be used interchangably.When changing PSA assays in the course of monitoring apatient, additional sequential testing should be carriedout to confirm baseline values. Thyroid Stimulating Hormone (TSH) 2.73 uIU/mL 0.358-3.74 [facility] Serum or plasma calcium kendra urement (mass/volume)Ordered By: Ash Mcpherson on 03-02-2023 Calcium [Mass/Vol] 8.8 mg/dL 8.5-10.1 [facility] Serum or plasma cholesterol in HDL measurement (mass/volume)Ordered By: Ash Mcpherson on 03-02-2023 Cholesterol in HDL [Mass/Vol] 40 mg/dL >40 [facility] Comment on above: The drugs N-Acetylcy steine and Metamizole may falsely depress this assay. Reference Range HDL <40 mg/dL Low HDL Cholesterol HDL >or= 60 mg/dL High HDL Cholesterol Serum or plasma cholesterol in VLDL measurement (mass/volume)Ordered By: Ash Mcpherson on 03-02-2023 Cholesterol in VLDL [Mass/Vol] 54 mg/dL 5-40 [facility] Serum or plasma creatinine m easurement (mass/volume)Ordered By: Ash Mcpherson on 03-02-2023 Creatinine [Mass/Vol] 0.95 mg/dL 0.70-1.30 [facility] Comment on above: The validity of the calculated GFR & GFRAA in patients over 70 years has not been determined. Clinical correlation is essential. Serum or plasma low density lipoprotein (LDL) cholesterol measurement (mass/volume)Ordered By: Ash Mcpherson on 03-02-2023 Cholesterol in LDL [Mass/Vol] 85 mg/dL 0-130 [facility] Serum or plasma urea nitroge n measurement (mass/volume)Ordered By: Ash Mcpherson on 03-02-2023 Urea nitrogen [Mass/Vol] 15 mg/dL 7-18 [facility] Thin prep Papanicolaou smear with manual screeningOrdered By: Ash Mcpherson on 03-02-2023 Thin prep Papanicolaou smear with manual screening 4 5-15 [facility] Absolute lymphocyte counton 12-06-2022 Lymphocytes Auto (Unsp spec) [#/Vol] 2.07 10*3/uL 0.83-4.51 [facility] Basophil percentageon 2022 Basophils/100 WBC (Bld) 0.6 % 0-1 [facility] Bilirubin [Mass/Vol] 0.50 mg/dL 0.20-1.00 [facility] Comment on above: For patients on eltr ombopag therapy, use of [place] TBIL is not recommended. Eosinophils/100 WBC (Bld) 2.0 % 0-5 [facility] Neutrophils (Bld) [#/Vol] 4.3 10*3/uL 2.0-7.7 [facility] Neutrophils/100 WBC (Bld) 60.1 % 47-70 [facility] Protein [Mass/Vol] 7.0 g/dL 6.4-8.2 [facility] WBC (Bld) [#/Vol] 7.1 10*3/uL 4.4-11.0 [facility] Blood erythrocytes count (nu mber/volume)on 12-06-2022 RBC (Bld) [#/Vol] 5.17 10*6/uL 4.6-6.2 [facility] Blood hemoglobin measurement (mass/volume)on 12-06-2022 Hemoglobin (Bld) [Mass/Vol] 15.9 g/dL 13.0-16.5 [facility] Blood lymphocytes/100 leukoc yteson 12-06-2022 Lymphocytes/100 WBC (Bld) 29.2 % 19-41 [facility] Blood monocytes/100 leukocyt eson 12-06-2022 Monocytes/100 WBC (Bld) 7.7 % 0-10 [facility] Blood platelet mean volumeon 12-06-2022 Platelet mean volume (Bld) [Entitic vol] 9.4 fL 6.2-12.0 [facility] Determination of erythrocyte mean corpuscular volume (MCV)on 12-06-2022 MCV (RBC) [Entitic vol] 91.3 fL 80-94 [facility] Direct bilirubinon Bilirubin.direct [Mass/Vol] 0.12 mg/dL 0.00-0.30 [facility] Erythrocyte sedimentation ra sonya 12-06-2022 ESR (Bld) [Velocity] 2 mm/h 0-20 [facility] Hematocrit Auto (Bld) [Volum e fraction]on 12-06-2022 Hematocrit (Bld) [Volume fraction] 47.2 % 40-54 [facility] Laboratory - Chemistry and C hemistry - challengeon 12-06-2022 ALP [Catalytic activity/Vol] 95 U/L 45-117 [facility] ALT [Catalytic activity/Vol] 35 U/L 16-61 [facility] Globulin (S) [Mass/Vol] 3.4 g/dL 2.2-4.2 [facility] Laboratory - Hematology and Cell countson 12-06-2022 Erythrocyte distribution width (RBC) [Entitic vol] 42.4 fL 35.1-43.9 [facility] Erythrocyte distribution width (RBC) [Ratio] 12.6 % 11.6-14.6 [facility] Immature granulocytes/100 WBC (Bld) 0.400 % 0.0-0.9 [facility] Comment on above: IG% - Immature Granu locytes (promyelocytes, myelocytes and metamyelocytes) > 1% indicates that a LEFT SHIFT is Present. MCH (RBC) [Entitic mass] 30.8 pg 27.0-32.0 [facility] Nucleated RBC/100 WBC (Bld) [Ratio] 0 % 0-5 [facility] MCHC Auto (RBC) [Mass/Vol]on 12-06-2022 MCHC (RBC) [Mass/Vol] 33.7 g/dL 32-36 [facility] No Panel Informationon 12-06 Estimated GFR (MDRD) Amer 100 mL/min >60 [facility] Comment on above: GFR Calc Estimated GFR (MDRD) Non-Af Amer 83 mL/min >60 [facility] Comment on above: Non- GFR Calc Platelets bldon 12-06-2022 Platelets (Bld) [#/Vol] 336 10*3/uL 150-450 [facility] Serum or plasma C reactive p rotein measurement (mass/volume)on 12-06-2022 CRP [Mass/Vol] mg/L 0.0-3.0 [facility] Comment on above: C-Reactive Protein ( CRP) provides useful information for thediagnosis, therapy and monitoring of inflammatory processesand associated diseases. For the evaluation of Relative Riskfor Cardiovascular Disease, a High Sensitivity CRP (HSCRP)should be ordered. Serum or plasma albumin kendra urement (mass/volume)on 12-06-2022 Albumin [Mass/Vol] 3.6 g/dL 3.2-5.0 [facility] Serum or plasma creatinine m easurement (mass/volume)on 12-06-2022 Creatinine [Mass/Vol] 0.98 mg/dL 0.70-1.30 [facility] Comment on above: The validity of the calculated GFR & GFRAA in patients over 70 years has not been determined. Clinical correlation is essential. Thin prep Papanicolaou smear with manual screeningon 12-06-2022 Thin prep Papanicolaou smear with manual screening 27 U/L 15-37 [facility] Comment on above: Slight Hemolysis, Re sult may be falsely increased. Albumin Elph [Mass/Vol]Order ed By: Dr. Caruso on 10-29-2022 Albumin [Mass/Vol] 3.9 g/dL 2.9-4.4 [facility] Interpretation of serum or p lasma protein pattern by immunofixation (narrative resultOrdered By: Dr. Caruso on 10-29-2022 Protein Fractions Immunofixation Omer [Interp] See comment [facility] Comment on above: NOT OBSERVED No Panel InformationOrdered By: Dr. Caruso on 10-29-2022 Addendum Document Comment . [facility] Comment on above: Protein electrophore sis scan will follow via computer,mail, or reeling operator delivery.Performed at: [place] [id number] Director: Klever Ortiz PhD, Phone: [phone] Serum [id number] measu rement by electrophoresisOrdered By: Dr. Caruso on 10-29-2022 Alpha 1 globulin Elph [Mass/Vol] 0.2 g/dL 0.0-0.4 [facility] Alpha 1 globulin Elph [Mass/Vol] 0.6 g/dL 0.4-1.0 [facility] Serum globulin measurement ( mass/volume)Ordered By: Dr. Caruso on 10-29-2022 Globulin (S) [Mass/Vol] 2.9 g/dL 2.2-3.9 [facility] Serum or plasma IgA measurem ent (mass/volume)Ordered By: Dr. Caruso on 10-29-2022 IgA [Mass/Vol] 185 mg/dL 90-386 [facility] Serum or plasma IgG measurem ent (mass/volume)Ordered By: Dr. Caruso on 10-29-2022 IgG [Mass/Vol] 1199 mg/dL 603-1613 [facility] Serum or plasma IgM measurem ent (mass/volume)Ordered By: Dr. Caruso on 10-29-2022 IgM [Mass/Vol] 106 mg/dL 20-172 [facility] Serum or plasma beta globuli n measurement by electrophoresis (mass/volume)Ordered By: Dr. Caruso on 10-29-2022 Beta globulin Elph [Mass/Vol] 0.9 g/dL 0.7-1.3 [facility] Serum or plasma gamma globul in measurement by electrophoresis (mass/volume)Ordered By: Dr. Caruso on 10-29-2022 Gamma globulin Elph [Mass/Vol] 1.2 g/dL 0.4-1.8 [facility] Serum or plasma immunoelectr ophoresis interpretation (nominal result)Ordered By: Dr. Caruso on 10-29-2022 Interpretation IEP [Interp] Comment . [facility] Comment on above: No monoclonality det ected. Thin prep Papanicolaou smear with manual screeningOrdered By: Dr. Caruso on 10-29-2022 Thin prep Papanicolaou smear with manual screening 1.4 0.7-1.7 [facility] Total protein bloodOrdered B y: Dr. Caruso on 02-24-2023 Protein [Mass/Vol] 6.8 g/dL 6.0-8.5 [facility] Absolute lymphocyte countOrd ered By: Dr. Caro on 09-07-2022 Lymphocytes Auto (Unsp spec) [#/Vol] 2.53 10*3/uL 0.83-4.51 [facility] Basophil percentageOrdered B y: Dr. Caro on 09-07-2022 Basophils/100 WBC (Bld) 0.7 % 0-1 [facility] Bilirubin [Mass/Vol] 0.40 mg/dL 0.20-1.00 [facility] Comment on above: For patients on eltr ombopag therapy, use of [place] TBIL is not recommended. Eosinophils/100 WBC (Bld) 2.0 % 0-5 [facility] Neutrophils (Bld) [#/Vol] 4.1 10*3/uL 2.0-7.7 [facility] Neutrophils/100 WBC (Bld) 53.8 % 47-70 [facility] Protein [Mass/Vol] 7.2 g/dL 6.4-8.2 [facility] WBC (Bld) [#/Vol] 7.5 10*3/uL 4.4-11.0 [facility] Blood erythrocytes count (nu mber/volume)Ordered By: Dr. Caro on 09-07-2022 RBC (Bld) [#/Vol] 5.35 10*6/uL 4.6-6.2 [facility] Blood hemoglobin measurement (mass/volume)Ordered By: Dr. Caro on 09-07-2022 Hemoglobin (Bld) [Mass/Vol] 15.9 g/dL 13.0-16.5 [facility] Blood lymphocytes/100 leukoc ytesOrdered By: Dr. Caro on 09-07-2022 Lymphocytes/100 WBC (Bld) 33.6 % 19-41 [facility] Blood monocytes/100 leukocyt esOrdered By: Dr. Caro on 09-07-2022 Monocytes/100 WBC (Bld) 9.2 % 0-10 [facility] Blood platelet mean volumeOr dered By: Dr. Caro on 09-07-2022 Platelet mean volume (Bld) [Entitic vol] 9.1 fL 6.2-12.0 [facility] Determination of erythrocyte mean corpuscular volume (MCV)Ordered By: Dr. Caro on 09-07-2022 MCV (RBC) [Entitic vol] 90.8 fL 80-94 [facility] Direct bilirubinOrdered By: Dr. Caro on 09-07-2022 Bilirubin.direct [Mass/Vol] 0.13 mg/dL 0.00-0.30 [facility] Erythrocyte sedimentation ra teOrdered By: Dr. Caro on 09-07-2022 ESR (Bld) [Velocity] 6 mm/h 0-20 [facility] Hematocrit Auto (Bld) [Volum e fraction]Ordered By: Dr. Caro on 09-07-2022 Hematocrit (Bld) [Volume fraction] 48.6 % 40-54 [facility] Laboratory - Chemistry and C hemistry - challengeOrdered By: Dr. Caro on 09-07-2022 ALP [Catalytic activity/Vol] 92 U/L 45-117 [facility] ALT [Catalytic activity/Vol] 32 U/L 16-61 [facility] Globulin (S) [Mass/Vol] 3.6 g/dL 2.2-4.2 [facility] Laboratory - Hematology and Cell countsOrdered By: Dr. Caro on 09-07-2022 Erythrocyte distribution width (RBC) [Entitic vol] 44.4 fL 35.1-43.9 [facility] Erythrocyte distribution width (RBC) [Ratio] 13.2 % 11.6-14.6 [facility] Immature granulocytes/100 WBC (Bld) 0.700 % 0.0-0.9 [facility] Comment on above: IG% - Immature Granu locytes (promyelocytes, myelocytes and metamyelocytes) > 1% indicates that a LEFT SHIFT is Present. MCH (RBC) [Entitic mass] 29.7 pg 27.0-32.0 [facility] Nucleated RBC/100 WBC (Bld) [Ratio] 0 % 0-5 [facility] MCHC Auto (RBC) [Mass/Vol]Or dered By: Dr. Caro on 09-07-2022 MCHC (RBC) [Mass/Vol] 32.7 g/dL 32-36 [facility] No Panel InformationOrdered By: Dr. Caro on 09-07-2022 Estimated GFR (MDRD) Amer 111 mL/min >60 [facility] Comment on above: GFR Calc Estimated GFR (MDRD) Non-Af Amer 92 mL/min >60 [facility] Comment on above: Non- GFR Calc Platelets bldOrdered By: Dr. Caro on 09-07-2022 Platelets (Bld) [#/Vol] 351 10*3/uL 150-450 [facility] Serum or plasma C reactive p rotein measurement (mass/volume)Ordered By: Dr. Caro on 09-07-2022 CRP [Mass/Vol] mg/L 0.0-3.0 [facility] Comment on above: C-Reactive Protein ( CRP) provides useful information for thediagnosis, therapy and monitoring of inflammatory processesand associated diseases. For the evaluation of Relative Riskfor Cardiovascular Disease, a High Sensitivity CRP (HSCRP)should be ordered. Serum or plasma albumin kendra urement (mass/volume)Ordered By: Dr. Caro on 09-07-2022 Albumin [Mass/Vol] 3.6 g/dL 3.2-5.0 [facility] Serum or plasma creatinine m easurement (mass/volume)Ordered By: Dr. Caro on 09-07-2022 Creatinine [Mass/Vol] 0.90 mg/dL 0.70-1.30 [facility] Comment on above: The validity of the calculated GFR & GFRAA in patients over 70 years has not been determined. Clinical correlation is essential. Thin prep Papanicolaou smear with manual screeningOrdered By: Dr. Caro on 09-07-2022 Thin prep Papanicolaou smear with manual screening 22 U/L 15-37 [facility] Laboratory - Microbiology an d Antimicrobial susceptibilityon 08-18-2022 SARS-CoV-2 (COVID-19) RNA ANGÉLICA+probe Ql (Unsp spec) Detected [facility] No Panel Informationon 08-18 Influenza Types A,B Rapid (Clinic) Not detected [facility] Albumin Elph [Mass/Vol]Order ed By: Dr. Caruso on 07-08-2022 Albumin [Mass/Vol] 3.8 g/dL 2.9-4.4 [facility] Basophil percentageOrdered B y: Dr. Caruso on 07-08-2022 Basophil percentage Comment . [facility] Comment on above: No monoclonality det ected.Performed at: [facility] [id number] Director: Klever Ortiz PhD, Phone: [phone] Interpretation of serum or p lasma protein pattern by immunofixation (narrative resultOrdered By: Dr. Caruso on 07-08-2022 Protein Fractions Immunofixation Omer [Interp] See comment [facility] Comment on above: Result: Not Observed No Panel InformationOrdered By: Dr. Caruso on 07-08-2022 Addendum Document Comment . [facility] Comment on above: Protein electrophore sis scan will follow via computer,mail, or reeling operator delivery. Serum [id number] measu rement by electrophoresisOrdered By: Dr. Caruso on 07-08-2022 Alpha 1 globulin Elph [Mass/Vol] 0.2 g/dL 0.0-0.4 [facility] Alpha 1 globulin Elph [Mass/Vol] 0.6 g/dL 0.4-1.0 [facility] Serum globulin measurement ( mass/volume)Ordered By: Dr. Caruso on 07-08-2022 Globulin (S) [Mass/Vol] 2.8 g/dL 2.2-3.9 [facility] Serum or plasma IgA measurem ent (mass/volume)Ordered By: Dr. Caruso on 07-08-2022 IgA [Mass/Vol] 187 mg/dL 90-386 [facility] Serum or plasma IgG measurem ent (mass/volume)Ordered By: Dr. Caruso on 07-08-2022 IgG [Mass/Vol] 1132 mg/dL 603-1613 [facility] Serum or plasma IgM measurem ent (mass/volume)Ordered By: Dr. Caruso on 07-08-2022 IgM [Mass/Vol] 97 mg/dL 20-172 [facility] Serum or plasma beta globuli n measurement by electrophoresis (mass/volume)Ordered By: Dr. Caruso on 07-08-2022 Beta globulin Elph [Mass/Vol] 0.8 g/dL 0.7-1.3 [facility] Serum or plasma gamma globul in measurement by electrophoresis (mass/volume)Ordered By: Dr. Caruso on 07-08-2022 Gamma globulin Elph [Mass/Vol] 1.2 g/dL 0.4-1.8 [facility] Serum or plasma immunoelectr ophoresis interpretation (nominal result)Ordered By: Dr. Caruso on 07-08-2022 Interpretation IEP [Interp] Comment: . [facility] Comment on above: Presence of monoclon al protein is unclear at this time. Suggestrepeat in 3 to 6 months if clinically indicated. Thin prep Papanicolaou smear with manual screeningOrdered By: Dr. Caruso on 07-08-2022 Thin prep Papanicolaou smear with manual screening 1.4 0.7-1.7 [facility] Total protein bloodOrdered B y: Dr. Caruso on 07-08-2022 Protein [Mass/Vol] 6.6 g/dL 6.0-8.5 [facility] Basophil percentageOrdered B y: Dr. Caruso on 06-30-2022 Chloride [Moles/Vol] 107 mmol/L 98-107 [facility] Glucose [Mass/Vol] 101 mg/dL 74-106 [facility] Comment on above: Fasting Glucose resu lt from 100 to 125 mg/dL suggests IMPAIRED HOMEOSTASIS per A.D.A. criteria. Potassium [Moles/Vol] 4.1 mmol/L 3.5-5.1 [facility] Sodium [Moles/Vol] 139 mmol/L 136-145 [facility] Iron measurement (mass/mass) Ordered By: Dr. Caruso on 06-30-2022 Iron (Unsp spec) [Mass/Mass] 129 ug/dL 65-175 [facility] Laboratory - Chemistry and C hemistry - challengeOrdered By: Dr. Caruso on 06-30-2022 CO2 [Moles/Vol] 30.0 mmol/L 21.0-32.0 [facility] Cobalamin (Vitamin B12) [Mass/Vol] 342 pg/mL 211-911 [facility] Free T4 [Mass/Vol] 1.24 ng/dL 0.76-1.46 [facility] Urea nitrogen/Creatinine [Mass ratio] 13.9 mg/mg 10-20 [facility] No Panel InformationOrdered By: Dr. Caruso on 06-30-2022 Estimated GFR (MDRD) Amer 106 mL/min >60 [facility] Comment on above: GFR Calc Estimated GFR (MDRD) Non-Af Amer 88 mL/min >60 [facility] Comment on above: Non- GFR Calc Free Lambda Light Chains, Quant 15.2 mg/L 5.7-26.3 [facility] Thyroid Stimulating Hormone (TSH) 2.59 uIU/mL 0.358-3.74 [facility] Whole Blood Vitamin B1 Level 217.6 nmol/L 66.5-200.0 [facility] Comment on above: Performed at: [address] [id number] Director: Klever Ortiz PhD, Phone: [phone] at: [facility] [id number] Director: Myrna Disla MD, Phone: [phone] Serum immunoglobulin kappa l ight chains/immunoglobulin lambda light chains mass ratioOrdered By: Dr. Caruso on 06-30-2022 Immunoglobulin light chains.kappa/Immunoglobul in light chains.lambda (S) [Mass ratio] 1.29 0.26-1.65 [facility] Serum or plasma calcium kendra urement (mass/volume)Ordered By: Dr. Caruso on 06-30-2022 Calcium [Mass/Vol] 8.6 mg/dL 8.5-10.1 [facility] Serum or plasma creatinine m easurement (mass/volume)Ordered By: Dr. Caruso on 06-30-2022 Creatinine [Mass/Vol] 0.94 mg/dL 0.70-1.30 [facility] Comment on above: The validity of the calculated GFR & GFRAA in patients over 70 years has not been determined. Clinical correlation is essential. Serum or plasma ferritin lito surement (mass/volume)Ordered By: Dr. Caruso on 06-30-2022 Ferritin [Mass/Vol] 61 ng/mL 388 [facility] Serum or plasma folate measu rement (mass/volume)Ordered By: Dr. Caruso on 06-30-2022 Folate [Mass/Vol] 85.20 ng/mL 3.1-55.4 [facility] Serum or plasma immunoglobul in kappa light chains measurement (mass/volume)Ordered By: Dr. Caruso on 06-30-2022 Immunoglobulin light chains.kappa [Mass/Vol] 19.6 mg/L 3.3-19.4 [facility] Serum or plasma urea nitroge n measurement (mass/volume)Ordered By: Dr. Caruso on 06-30-2022 Urea nitrogen [Mass/Vol] 13 mg/dL 7-18 [facility] Thin prep Papanicolaou smear with manual screeningOrdered By: Dr. Caruso on 06-30-2022 Thin prep Papanicolaou smear with manual screening 2 5-15 [facility] Absolute lymphocyte counton 06-09-2022 Lymphocytes Auto (Unsp spec) [#/Vol] 2.39 10*3/uL 0.83-4.51 [facility] Basophil percentageon 2021 Basophils/100 WBC (Bld) 0.6 % 0-1 [facility] Bilirubin [Mass/Vol] 0.80 mg/dL 0.20-1.00 [facility] Comment on above: For patients on eltr ombopag therapy, use of [place] TBIL is not recommended. Eosinophils/100 WBC (Bld) 2.2 % 0-5 [facility] Neutrophils (Bld) [#/Vol] 3.1 10*3/uL 2.0-7.7 [facility] Neutrophils/100 WBC (Bld) 48.6 % 47-70 [facility] Protein [Mass/Vol] 7.2 g/dL 6.4-8.2 [facility] WBC (Bld) [#/Vol] 6.4 10*3/uL 4.4-11.0 [facility] Blood erythrocytes count (nu mber/volume)on 06-09-2022 RBC (Bld) [#/Vol] 5.32 10*6/uL 4.6-6.2 [facility] Blood hemoglobin measurement (mass/volume)on 06-09-2022 Hemoglobin (Bld) [Mass/Vol] 15.8 g/dL 13.0-16.5 [facility] Blood lymphocytes/100 leukoc yteson 06-09-2022 Lymphocytes/100 WBC (Bld) 37.5 % 19-41 [facility] Blood monocytes/100 leukocyt eson 06-09-2022 Monocytes/100 WBC (Bld) 10.8 % 0-10 [facility] Blood platelet mean volumeon 06-09-2022 Platelet mean volume (Bld) [Entitic vol] 9.5 fL 6.2-12.0 [facility] Determination of erythrocyte mean corpuscular volume (MCV)on 06-09-2022 MCV (RBC) [Entitic vol] 90.2 fL 80-94 [facility] Direct bilirubinon 2 Bilirubin.direct [Mass/Vol] 0.14 mg/dL 0.00-0.30 [facility] Erythrocyte sedimentation ra sonya 06-09-2022 ESR (Bld) [Velocity] 4 mm/h 0-20 [facility] Hematocrit Auto (Bld) [Volum e fraction]on 06-09-2022 Hematocrit (Bld) [Volume fraction] 48.0 % 40-54 [facility] Laboratory - Chemistry and C hemistry - challengeon 06-09-2022 ALP [Catalytic activity/Vol] 89 U/L 45-117 [facility] ALT [Catalytic activity/Vol] 29 U/L 16-61 [facility] Globulin (S) [Mass/Vol] 3.7 g/dL 2.2-4.2 [facility] Laboratory - Hematology and Cell countson 06-09-2022 Erythrocyte distribution width (RBC) [Entitic vol] 43.0 fL 35.1-43.9 [facility] Erythrocyte distribution width (RBC) [Ratio] 13.1 % 11.6-14.6 [facility] Immature granulocytes/100 WBC (Bld) 0.300 % 0.0-0.9 [facility] Comment on above: IG% - Immature Granu locytes (promyelocytes, myelocytes and metamyelocytes) > 1% indicates that a LEFT SHIFT is Present. MCH (RBC) [Entitic mass] 29.7 pg 27.0-32.0 [facility] Nucleated RBC/100 WBC (Bld) [Ratio] 0 % 0-5 [facility] MCHC Auto (RBC) [Mass/Vol]on 06-09-2022 MCHC (RBC) [Mass/Vol] 32.9 g/dL 32-36 [facility] No Panel Informationon 06-09 Estimated GFR (MDRD) Amer 122 mL/min >60 [facility] Comment on above: GFR Calc Estimated GFR (MDRD) Non-Af Amer 101 mL/min >60 [facility] Comment on above: Non- GFR Calc Platelets bldon 06-09-2022 Platelets (Bld) [#/Vol] 334 10*3/uL 150-450 [facility] Serum or plasma C reactive p rotein measurement (mass/volume)on 06-09-2022 CRP [Mass/Vol] mg/L 0.0-3.0 [facility] Comment on above: C-Reactive Protein ( CRP) provides useful information for thediagnosis, therapy and monitoring of inflammatory processesand associated diseases. For the evaluation of Relative Riskfor Cardiovascular Disease, a High Sensitivity CRP (HSCRP)should be ordered. Serum or plasma albumin kendra urement (mass/volume)on 06-09-2022 Albumin [Mass/Vol] 3.5 g/dL 3.2-5.0 [facility] Serum or plasma creatinine m easurement (mass/volume)on 06-09-2022 Creatinine [Mass/Vol] 0.83 mg/dL 0.70-1.30 [facility] Comment on above: The validity of the calculated GFR & GFRAA in patients over 70 years has not been determined. Clinical correlation is essential. Thin prep Papanicolaou smear with manual screeningon 06-09-2022 Thin prep Papanicolaou smear with manual screening 22 U/L 15-37 [facility] Absolute lymphocyte counton 03-09-2022 Lymphocytes Auto (Unsp spec) [#/Vol] 2.05 10*3/uL 0.83-4.51 [facility] Work Phone: Basophil percentageon 2021 Basophils/100 WBC (Bld) 0.5 % 0-1 [facility] Work Phone: Bilirubin [Mass/Vol] 0.80 mg/dL 0.20-1.00 [facility] Work Phone: Comment on above: For patients on eltr ombopag therapy, use of [place] TBIL is not recommended. Eosinophils/100 WBC (Bld) 2.4 % 0-5 [facility] Work Phone: Neutrophils (Bld) [#/Vol] 3.4 10*3/uL 2.0-7.7 [facility] Work Phone: Neutrophils/100 WBC (Bld) 54.2 % 47-70 [facility] Work Phone: Protein [Mass/Vol] 7.3 g/dL 6.4-8.2 [facility] Work Phone: WBC (Bld) [#/Vol] 6.3 10*3/uL 4.4-11.0 [facility] Work Phone: Blood erythrocytes count (nu mber/volume)on 03-09-2022 RBC (Bld) [#/Vol] 5.35 10*6/uL 4.6-6.2 [facility] Work Phone: Blood hemoglobin measurement (mass/volume)on 03-09-2022 Hemoglobin (Bld) [Mass/Vol] 15.7 g/dL 13.0-16.5 [facility] Work Phone: Blood lymphocytes/100 leukoc yteson 03-09-2022 Lymphocytes/100 WBC (Bld) 32.7 % 19-41 [facility] Work Phone: Blood monocytes/100 leukocyt eson 03-09-2022 Monocytes/100 WBC (Bld) 9.9 % 0-10 [facility] Work Phone: Blood platelet mean volumeon 03-09-2022 Platelet mean volume (Bld) [Entitic vol] 9.7 fL 6.2-12.0 [facility] Work Phone: Determination of erythrocyte mean corpuscular volume (MCV)on 03-09-2022 MCV (RBC) [Entitic vol] 89.2 fL 80-94 [facility] Work Phone: Direct bilirubinon Bilirubin.direct [Mass/Vol] 0.20 mg/dL 0.00-0.30 [facility] Work Phone: Erythrocyte sedimentation ra sonya 03-09-2022 ESR (Bld) [Velocity] 3 mm/h 0-20 [facility] Work Phone: Hematocrit Auto (Bld) [Volum e fraction]on 03-09-2022 Hematocrit (Bld) [Volume fraction] 47.7 % 40-54 [facility] Work Phone: Laboratory - Chemistry and C hemistry - challengeon 03-09-2022 ALP [Catalytic activity/Vol] 86 U/L 45-117 [facility] Work Phone: ALT [Catalytic activity/Vol] 24 U/L 16-61 [facility] Work Phone: Globulin (S) [Mass/Vol] 3.6 g/dL 2.2-4.2 [facility] Work Phone: Laboratory - Hematology and Cell countson 03-09-2022 Erythrocyte distribution width (RBC) [Entitic vol] 44.3 fL 35.1-43.9 [facility] Work Phone: Erythrocyte distribution width (RBC) [Ratio] 13.6 % 11.6-14.6 [facility] Work Phone: Immature granulocytes/100 WBC (Bld) 0.300 % 0.0-0.9 [facility] Work Phone: Comment on above: IG% - Immature Granu locytes (promyelocytes, myelocytes and metamyelocytes) > 1% indicates that a LEFT SHIFT is Present. MCH (RBC) [Entitic mass] 29.3 pg 27.0-32.0 [facility] Work Phone: Nucleated RBC/100 WBC (Bld) [Ratio] 0 % 0-5 [facility] Work Phone: MCHC Auto (RBC) [Mass/Vol]on 03-09-2022 MCHC (RBC) [Mass/Vol] 32.9 g/dL 32-36 [facility] Work Phone: No Panel Informationon 03-09 Estimated GFR (MDRD) Amer 108 mL/min >60 [facility] Work Phone: Comment on above: GFR Calc Estimated GFR (MDRD) Non-Af Amer 89 mL/min >60 [facility] Work Phone: Comment on above: Non- GFR Calc Platelets bldon 03-09-2022 Platelets (Bld) [#/Vol] 346 10*3/uL 150-450 [facility] Work Phone: Serum or plasma C reactive p rotein measurement (mass/volume)on 03-09-2022 CRP [Mass/Vol] 5.23 mg/L 0.0-3.0 [facility] Work Phone: Comment on above: C-Reactive Protein ( CRP) provides useful information for thediagnosis, therapy and monitoring of inflammatory processesand associated diseases. For the evaluation of Relative Riskfor Cardiovascular Disease, a High Sensitivity CRP (HSCRP)should be ordered. Serum or plasma albumin kendra urement (mass/volume)on 03-09-2022 Albumin [Mass/Vol] 3.7 g/dL 3.2-5.0 [facility] Work Phone: Serum or plasma creatinine m easurement (mass/volume)on 03-09-2022 Creatinine [Mass/Vol] 0.93 mg/dL 0.70-1.30 [facility] Work Phone: Comment on above: The validity of the calculated GFR & GFRAA in patients over 70 years has not been determined. Clinical correlation is essential. Thin prep Papanicolaou smear with manual screeningon 03-09-2022 Thin prep Papanicolaou smear with manual screening 20 U/L 15-37 [facility] Work Phone: Absolute lymphocyte counton 03-02-2022 Lymphocytes Auto (Unsp spec) [#/Vol] 2.14 10*3/uL 0.83-4.51 [facility] Work Phone: Absolute reticulocyte counto n 03-02-2022 Reticulocytes (Bld) [#/Vol] 0.00 10*3/uL 0-5 [facility] Work Phone: Basophil percentageon 2021 Basophil percentage 3.2 mg/dL 2.5-4.9 [facility] Work Phone: Bilirubin [Mass/Vol] 0.70 mg/dL 0.20-1.00 [facility] Work Phone: Comment on above: For patients on eltr ombopag therapy, use of [place] TBIL is not recommended. Chloride [Moles/Vol] 106 mmol/L 98-107 [facility] Work Phone: Cholesterol [Mass/Vol] 184 mg/dL <200 [facility] Work Phone: Comment on above: <200 mg/dL Desirable 200-240 mg/dL Borderline >240 mg/dL High Risk Glucose [Mass/Vol] 104 mg/dL 74-106 [facility] Work Phone: Comment on above: Fasting Glucose resu lt from 100 to 125 mg/dL suggests IMPAIRED HOMEOSTASIS per A.D.A. criteria. Neutrophils (Bld) [#/Vol] 2.5 10*3/uL 2.0-7.7 [facility] Work Phone: Potassium [Moles/Vol] 4.1 mmol/L 3.5-5.1 [facility] Work Phone: Protein [Mass/Vol] 6.9 g/dL 6.4-8.2 [facility] Work Phone: Sodium [Moles/Vol] 140 mmol/L 136-145 [facility] Work Phone: Triglyceride [Mass/Vol] 89 mg/dL <199 [facility] Work Phone: Comment on above: The drugs N-Acetylcy steine and Metamizole may falsely depress this assay.Serum Triglycerides Reference Interval Normal <150 mg/dL Borderline high 150 - 199 mg/dL High 200 - 499 mg/dL Very High > or = 500 mg/dL WBC (Bld) [#/Vol] 5.4 10*3/uL 4.4-11.0 [facility] Work Phone: Bilirubin Test strip Ql (U)o n 03-02-2022 Bilirubin Ql (U) Negative Negative [facility] Work Phone: Blood erythrocytes count (nu mber/volume)on 03-02-2022 RBC (Bld) [#/Vol] 5.29 10*6/uL 4.6-6.2 [facility] Work Phone: Blood hemoglobin measurement (mass/volume)on 03-02-2022 Hemoglobin (Bld) [Mass/Vol] 15.6 g/dL 13.0-16.5 [facility] Work Phone: Blood platelet mean volumeon 03-02-2022 Platelet mean volume (Bld) [Entitic vol] 9.1 fL 6.2-12.0 [facility] Work Phone: Determination of erythrocyte mean corpuscular volume (MCV)on 03-02-2022 MCV (RBC) [Entitic vol] 89.4 fL 80-94 [facility] Work Phone: Direct bilirubinon Bilirubin.direct [Mass/Vol] 0.21 mg/dL 0.00-0.30 [facility] Work Phone: Hematocrit Auto (Bld) [Volum e fraction]on 03-02-2022 Hematocrit (Bld) [Volume fraction] 47.3 % 40-54 [facility] Work Phone: Ketones Test strip Ql (U)on 03-02-2022 Ketones Ql (U) Negative Negative [facility] Work Phone: Laboratory - Chemistry and C hemistry - challengeon 03-02-2022 ALP [Catalytic activity/Vol] 84 U/L 45-117 [facility] Work Phone: ALT [Catalytic activity/Vol] 23 U/L 16-61 [facility] Work Phone: Cholesterol.total/Cholest priscilla in HDL [Mass ratio] 3.70 {ratio} [facility] Work Phone: CO2 [Moles/Vol] 29.0 mmol/L 21.0-32.0 [facility] Work Phone: Globulin (S) [Mass/Vol] 3.2 g/dL 2.2-4.2 [facility] Work Phone: Urea nitrogen/Creatinine [Mass ratio] 19.2 mg/mg 10-20 [facility] Work Phone: Laboratory - Hematology and Cell countson 03-02-2022 Erythrocyte distribution width (RBC) [Entitic vol] 43.3 fL 35.1-43.9 [facility] Work Phone: Erythrocyte distribution width (RBC) [Ratio] 13.3 % 11.6-14.6 [facility] Work Phone: MCH (RBC) [Entitic mass] 29.5 pg 27.0-32.0 [facility] Work Phone: Nucleated RBC/100 WBC (Bld) [Ratio] 0 % 0-5 [facility] Work Phone: MCHC Auto (RBC) [Mass/Vol]on 03-02-2022 MCHC (RBC) [Mass/Vol] 33.0 g/dL 32-36 [facility] Work Phone: Nitrite Test strip Ql (U)on 03-02-2022 Nitrite Ql (U) Negative Negative [facility] Work Phone: No Panel Informationon 03-02 Estimated GFR (MDRD) Amer 122 mL/min >60 [facility] Work Phone: Comment on above: GFR Calc Estimated GFR (MDRD) Non-Af Amer 101 mL/min >60 [facility] Work Phone: Comment on above: Non- GFR Calc Prostate Specific Antigen Screen 1.79 ng/mL 0.00-4.00 [facility] Work Phone: Comment on above: This test was perfor med using the TPSA assay method for theSimple Emotion chemistry system. Values obtained with differentassay methods cannot be used interchangably.When changing PSA assays in the course of monitoring apatient, additional sequential testing should be carriedout to confirm baseline values. Thyroid Stimulating Hormone (TSH) 3.15 uIU/mL 0.358-3.74 [facility] Work Phone: Vitamin D 25-Hydroxy 34.1 ng/mL [facility] Work Phone: Comment on above: Vitamin D 25(OH) Sta tus Range Deficiency <20 ng/mL (50nmol/L) Insufficiency 20 - 30 ng/mL (50 - 75 nmol/L) Sufficiency 30 - 100 ng/mL (75 - 250 nmol/L) Toxicity >100 ng/mL (>250 nmol/L) Platelets bldon 03-02-2022 Platelets (Bld) [#/Vol] 339 10*3/uL 150-450 [facility] Work Phone: Protein Test strip Ql (U)on 03-02-2022 Protein Ql (U) Negative Negative [facility] Work Phone: Segmented neutrophils/100 WB C Auto (Bld)on 03-02-2022 Segmented neutrophils/100 WBC (Bld) 46.7 % 47-70 [facility] Work Phone: Serum or plasma albumin kendra urement (mass/volume)on 03-02-2022 Albumin [Mass/Vol] 3.7 g/dL 3.2-5.0 [facility] Work Phone: Serum or plasma albumin/glob ulin mass ratioon 03-02-2022 Albumin/Globulin [Mass ratio] 1.2 {ratio} 0.9-2.4 [facility] Work Phone: Serum or plasma calcium kendra urement (mass/volume)on 03-02-2022 Calcium [Mass/Vol] 8.6 mg/dL 8.5-10.1 [facility] Work Phone: Serum or plasma cholesterol in HDL measurement (mass/volume)on 03-02-2022 Cholesterol in HDL [Mass/Vol] 50 mg/dL >40 [facility] Work Phone: Comment on above: The drugs N-Acetylcy steine and Metamizole may falsely depress this assay. Reference Range HDL <40 mg/dL Low HDL Cholesterol HDL >or= 60 mg/dL High HDL Cholesterol Serum or plasma cholesterol in VLDL measurement (mass/volume)on 03-02-2022 Cholesterol in VLDL [Mass/Vol] 18 mg/dL 5-40 [facility] Work Phone: Serum or plasma creatinine m easurement (mass/volume)on 03-02-2022 Creatinine [Mass/Vol] 0.83 mg/dL 0.70-1.30 [facility] Work Phone: Comment on above: The validity of the calculated GFR & GFRAA in patients over 70 years has not been determined. Clinical correlation is essential. Serum or plasma low density lipoprotein (LDL) cholesterol measurement (mass/volume)on 03-02-2022 Cholesterol in LDL [Mass/Vol] 116 mg/dL 0-130 [facility] Work Phone: Serum or plasma urea nitroge n measurement (mass/volume)on 03-02-2022 Urea nitrogen [Mass/Vol] 16 mg/dL 7-18 [facility] Work Phone: Serum or plasma uric acid me asurement (mass/volume)on 03-02-2022 Urate [Mass/Vol] 4.9 mg/dL 3.5-7.2 [facility] Work Phone: Comment on above: The drugs N-Acetylcy steine and Metamizole may falsely depress this assay. Thin prep Papanicolaou smear with manual screeningon 03-02-2022 Thin prep Papanicolaou smear with manual screening 18 U/L 15-37 [facility] Work Phone: Thin prep Papanicolaou smear with manual screening 5 5-15 [facility] Work Phone: Thin prep Papanicolaou smear with manual screening 176 U/L 87-241 [facility] Work Phone: Urine blood detectionon 02-04 RBC Ql (U) Negative Negative [facility] Work Phone: Urine clarityon 03-02-2022 Clarity (U) Clear Clear [facility] Work Phone: Urine color determinationon 03-02-2022 Color (U) Yellow Yellow [facility] Work Phone: Urine glucose detectionon Glucose Ql (U) Normal mg/dl Normal [facility] Work Phone: Urine leukocyte esterase det ection by dipstickon 03-02-2022 Leukocyte esterase Test strip Ql (U) 25 /ul Negative [facility] Work Phone: Urine pHon 03-02-2022 pH (U) 6.0 [pH] 5.0 - 8.0 [facility] Work Phone: Urine specific gravity measu rementon 03-02-2022 Specific gravity (U) [Rel density] 1.020 1.002-1.030 [facility] Work Phone: Urobilinogen Auto test strip Ql (U)on 03-02-2022 Urobilinogen Ql (U) Normal mg/dl Normal [facility] Work Phone: Absolute lymphocyte counton 12-04-2021 Lymphocytes Auto (Unsp spec) [#/Vol] 2.38 10*3/uL 0.83-4.51 [facility] Work Phone: Basophil percentageon 2021 Basophils/100 WBC (Bld) 0.8 % 0-1 [facility] Work Phone: Bilirubin [Mass/Vol] 0.50 mg/dL 0.20-1.00 [facility] Work Phone: Comment on above: For patients on eltr ombopag therapy, use of Dim[place] TBIL is not recommended. Eosinophils/100 WBC (Bld) 2.1 % 0-5 [facility] Work Phone: Neutrophils (Bld) [#/Vol] 4.1 10*3/uL 2.0-7.7 [facility] Work Phone: Neutrophils/100 WBC (Bld) 55.4 % 47-70 [facility] Work Phone: Protein [Mass/Vol] 7.3 g/dL 6.4-8.2 [facility] Work Phone: WBC (Bld) [#/Vol] 7.3 10*3/uL 4.4-11.0 [facility] Work Phone: Blood erythrocytes count (nu mber/volume)on 12-04-2021 RBC (Bld) [#/Vol] 5.22 10*6/uL 4.6-6.2 [facility] Work Phone: Blood hemoglobin measurement (mass/volume)on 12-04-2021 Hemoglobin (Bld) [Mass/Vol] 15.4 g/dL 13.0-16.5 [facility] Work Phone: Blood lymphocytes/100 leukoc yteson 12-04-2021 Lymphocytes/100 WBC (Bld) 32.6 % 19-41 [facility] Work Phone: Blood monocytes/100 leukocyt eson 12-04-2021 Monocytes/100 WBC (Bld) 8.6 % 0-10 [facility] Work Phone: Blood platelet mean volumeon 12-04-2021 Platelet mean volume (Bld) [Entitic vol] 9.5 fL 6.2-12.0 [facility] Work Phone: Determination of erythrocyte mean corpuscular volume (MCV)on 12-04-2021 MCV (RBC) [Entitic vol] 90.2 fL 80-94 [facility] Work Phone: Direct bilirubinon Bilirubin.direct [Mass/Vol] 0.15 mg/dL 0.00-0.30 [facility] Work Phone: Erythrocyte sedimentation ra sonya 12-04-2021 ESR (Bld) [Velocity] 7 mm/h 0-20 [facility] Work Phone: Hematocrit Auto (Bld) [Volum e fraction]on 12-04-2021 Hematocrit (Bld) [Volume fraction] 47.1 % 40-54 [facility] Work Phone: Laboratory - Chemistry and C hemistry - challengeon 12-04-2021 ALP [Catalytic activity/Vol] 86 U/L 45-117 [facility] Work Phone: ALT [Catalytic activity/Vol] 31 U/L 16-61 [facility] Work Phone: Globulin (S) [Mass/Vol] 3.3 g/dL 2.2-4.2 [facility] Work Phone: Laboratory - Hematology and Cell countson 12-04-2021 Erythrocyte distribution width (RBC) [Entitic vol] 42.8 fL 35.1-43.9 [facility] Work Phone: Erythrocyte distribution width (RBC) [Ratio] 13.0 % 11.6-14.6 [facility] Work Phone: Immature granulocytes/100 WBC (Bld) 0.500 % 0.0-0.9 [facility] Work Phone: Comment on above: IG% - Immature Granu locytes (promyelocytes, myelocytes and metamyelocytes) > 1% indicates that a LEFT SHIFT is Present. MCH (RBC) [Entitic mass] 29.5 pg 27.0-32.0 [facility] Work Phone: Nucleated RBC/100 WBC (Bld) [Ratio] 0 % 0-5 [facility] Work Phone: MCHC Auto (RBC) [Mass/Vol]on 12-04-2021 MCHC (RBC) [Mass/Vol] 32.7 g/dL 32-36 [facility] Work Phone: No Panel Informationon 12-04 Estimated GFR (MDRD) Amer 90 mL/min >60 [facility] Work Phone: Comment on above: GFR Calc Estimated GFR (MDRD) Non-Af Amer 75 mL/min >60 [facility] Work Phone: Comment on above: Non- GFR Calc Platelets bldon 12-04-2021 Platelets (Bld) [#/Vol] 351 10*3/uL 150-450 [facility] Work Phone: Serum or plasma C reactive p rotein measurement (mass/volume)on 12-04-2021 CRP [Mass/Vol] mg/L 0.0-3.0 [facility] Work Phone: Comment on above: C-Reactive Protein ( CRP) provides useful information for thediagnosis, therapy and monitoring of inflammatory processesand associated diseases. For the evaluation of Relative Riskfor Cardiovascular Disease, a High Sensitivity CRP (HSCRP)should be ordered. Serum or plasma albumin kendra urement (mass/volume)on 12-04-2021 Albumin [Mass/Vol] 4.0 g/dL 3.2-5.0 [facility] Work Phone: Serum or plasma creatinine m easurement (mass/volume)on 12-04-2021 Creatinine [Mass/Vol] 1.08 mg/dL 0.70-1.30 [facility] Work Phone: Comment on above: The validity of the calculated GFR & GFRAA in patients over 70 years has not been determined. Clinical correlation is essential. Thin prep Papanicolaou smear with manual screeningon 12-04-2021 Thin prep Papanicolaou smear with manual screening 21 U/L 15-37 [facility] Work Phone: Absolute lymphocyte counton 09-10-2021 Lymphocytes Auto (Unsp spec) [#/Vol] 2.89 10*3/uL 0.83-4.51 [facility] Work Phone: Basophil percentageon 2021 Basophils/100 WBC (Bld) 0.9 % 0-1 [facility] Work Phone: Bilirubin [Mass/Vol] 0.60 mg/dL 0.20-1.00 [facility] Work Phone: Comment on above: For patients on eltr ombopag therapy, use of [place] TBIL is not recommended. Eosinophils/100 WBC (Bld) 1.6 % 0-5 [facility] Work Phone: Neutrophils (Bld) [#/Vol] 3.7 10*3/uL 2.0-7.7 [facility] Work Phone: Neutrophils/100 WBC (Bld) 48.4 % 47-70 [facility] Work Phone: Protein [Mass/Vol] 7.7 g/dL 6.4-8.2 [facility] Work Phone: WBC (Bld) [#/Vol] 7.6 10*3/uL 4.4-11.0 [facility] Work Phone: Blood erythrocytes count (nu mber/volume)on 09-10-2021 RBC (Bld) [#/Vol] 5.42 10*6/uL 4.6-6.2 [facility] Work Phone: Blood hemoglobin measurement (mass/volume)on 09-10-2021 Hemoglobin (Bld) [Mass/Vol] 16.3 g/dL 13.0-16.5 [facility] Work Phone: Blood lymphocytes/100 leukoc yteson 09-10-2021 Lymphocytes/100 WBC (Bld) 38.1 % 19-41 [facility] Work Phone: Blood monocytes/100 leukocyt eson 09-10-2021 Monocytes/100 WBC (Bld) 9.6 % 0-10 [facility] Work Phone: Blood platelet mean volumeon 09-10-2021 Platelet mean volume (Bld) [Entitic vol] 9.4 fL 6.2-12.0 [facility] Work Phone: Determination of erythrocyte mean corpuscular volume (MCV)on 09-10-2021 MCV (RBC) [Entitic vol] 89.9 fL 80-94 [facility] Work Phone: Direct bilirubinon 2 Bilirubin.direct [Mass/Vol] 0.15 mg/dL 0.00-0.30 [facility] Work Phone: Erythrocyte sedimentation ra sonya 09-10-2021 ESR (Bld) [Velocity] 3 mm/h 0-20 [facility] Work Phone: Hematocrit Auto (Bld) [Volum e fraction]on 09-10-2021 Hematocrit (Bld) [Volume fraction] 48.7 % 40-54 [facility] Work Phone: Laboratory - Chemistry and C hemistry - challengeon 09-10-2021 ALP [Catalytic activity/Vol] 95 U/L 45-117 [facility] Work Phone: ALT [Catalytic activity/Vol] 44 U/L 16-61 [facility] Work Phone: Globulin (S) [Mass/Vol] 3.9 g/dL 2.2-4.2 [facility] Work Phone: Laboratory - Hematology and Cell countson 09-10-2021 Erythrocyte distribution width (RBC) [Entitic vol] 42.0 fL 35.1-43.9 [facility] Work Phone: Erythrocyte distribution width (RBC) [Ratio] 12.8 % 11.6-14.6 [facility] Work Phone: Immature granulocytes/100 WBC (Bld) 1.400 % 0.0-0.9 [facility] Work Phone: Comment on above: IG% - Immature Granu locytes (promyelocytes, myelocytes and metamyelocytes) > 1% indicates that a LEFT SHIFT is Present. MCH (RBC) [Entitic mass] 30.1 pg 27.0-32.0 [facility] Work Phone: Nucleated RBC/100 WBC (Bld) [Ratio] 0 % 0-5 [facility] Work Phone: MCHC Auto (RBC) [Mass/Vol]on 09-10-2021 MCHC (RBC) [Mass/Vol] 33.5 g/dL 32-36 [facility] Work Phone: No Panel Informationon 09-10 Estimated GFR (MDRD) Amer 110 mL/min >60 [facility] Work Phone: Comment on above: GFR Calc Estimated GFR (MDRD) Non-Af Amer 91 mL/min >60 [facility] Work Phone: Comment on above: Non- GFR Calc Platelets bldon 09-10-2021 Platelets (Bld) [#/Vol] 403 10*3/uL 150-450 [facility] Work Phone: Serum or plasma C reactive p rotein measurement (mass/volume)on 09-10-2021 CRP [Mass/Vol] mg/L 0.0-3.0 [facility] Work Phone: Comment on above: C-Reactive Protein ( CRP) provides useful information for thediagnosis, therapy and monitoring of inflammatory processesand associated diseases. For the evaluation of Relative Riskfor Cardiovascular Disease, a High Sensitivity CRP (HSCRP)should be ordered. Serum or plasma albumin kendra urement (mass/volume)on 09-10-2021 Albumin [Mass/Vol] 3.8 g/dL 3.2-5.0 [facility] Work Phone: Serum or plasma creatinine m easurement (mass/volume)on 09-10-2021 Creatinine [Mass/Vol] 0.91 mg/dL 0.70-1.30 [facility] Work Phone: Comment on above: The validity of the calculated GFR & GFRAA in patients over 70 years has not been determined. Clinical correlation is essential. Thin prep Papanicolaou smear with manual screeningon 09-10-2021 Thin prep Papanicolaou smear with manual screening 25 U/L 15-37 [facility] Work Phone: No Panel Informationon 09-02 D-Dimer Quantitative (PE/DVT) 0.33 FEU/ug/m 0.27-0.49 [facility] Work Phone: Comment on above: NORMAL D-Dimer level (<0.50) indicates no DVT or PE. Laboratory - Microbiology an d Antimicrobial susceptibilityon 08-26-2021 SARS-CoV-2 (COVID-19) RNA ANGÉLICA+probe Ql (Unsp spec) Not detected Not Detect [facility] Work Phone: Comment on above: Normal Reference Ran ge: Not DetectedMethod:(RT-PCR) real-time reverse transcriptase PCRLuminex Benefit Mobile Instrument*The Food and Drug Administration (FDA) has issued an Emergency Use Authorization (EAU) for the Benefit Mobile SARS-CoV-2 Assay for the rapid detection of the virus that causes COVID-19. This test has been validated, but the FDAs independent review of this validation is pending.*Negative results do not preclude infection and should not be used as the sole basis for treatment or patient management. Optimum specimen types and timing for peak viral levels during infections caused by SARS-CoV-2 have not been determined. Collection of multiple specimens from the same patient may be necessary to detect the virus. The possibility of a false negative result should be considered if the patient has clinical presentation or has had recent exposure. No Panel Informationon 08-26 Influenza Types A,B Direct FA (KARON) [facility] Work Phone: Office Visiton 03-14-2017 Documentation of current medications (procedure) Done Invalid Interpretation Code [facility] Work Phone: Tobacco use CPHS Never smoker Invalid Interpretation Code [facility] Work Phone: Office Visiton 11-29-2016 Protein mass conc Done [facility] Work Phone: Tobacco smoking status NHIS Never smoker [facility] Work Phone: Lab Report: Basic Metabolic Profile (BMP)on 09-10-2016 Anion gap 5 mmol/L Invalid Interpretation Code 5-15 [facility] Work Phone: Anion gap molar conc 5 mmol/L 5-15 [facility] Work Phone: Calcium mass conc 7.9 mg/dL Low 8.5-10.1 [facility] Work Phone: Chloride molar conc 101 mmol/L Invalid Interpretation Code 98-107 [facility] Work Phone: CO2 29.0 mmol/L Invalid Interpretation Code 21.0-32.0 [facility] Work Phone: CO2 ppres (BldV) 29.0 mmol/L 21.0-32.0 [facility] Work Phone: Creatinine 88.34 mL/min Invalid Interpretation Code [facility] Work Phone: Creatinine mass conc 1.01 mg/dL Invalid Interpretation Code 0.70-1.30 [facility] Work Phone: eGFR (non-black) 100 mL/min/{1.73_m2} Invalid Interpretation Code >60 [facility] Work Phone: EST GFR - AA 100 mL/min >60 [facility] Work Phone: GFR/1.73 sq M predicted among non-blacks MDRD vol rate/area (S/P/Bld) 82 mL/min/{1.73_m2} Invalid Interpretation Code >60 [facility] Work Phone: Glucose 108 mg/dL Invalid Interpretation Code 70-110 [facility] Work Phone: Glucose mass conc 108 mg/dL 70-110 [facility] Work Phone: Potassium molar conc 4.0 mmol/L Invalid Interpretation Code 3.5-5.1 [facility] Work Phone: Sodium molar conc 135 mmol/L Low 136-145 [facility] Work Phone: Urea nitrogen mass conc 19 mg/dL High 7-18 [facility] Work Phone: Urea nitrogen/Creatinine mass ratio 18.8 RATIO Invalid Interpretation Code 10-20 [facility] Work Phone: Lab Report: CBC W/Diff, Auto matedon 09-10-2016 Basophils/100 leukocytes 0.2 % Invalid Interpretation Code 0-1 [facility] Work Phone: Basophils/100 WBC (Bld) 0.2 % 0-1 [facility] Work Phone: Eosinophils/100 leukocytes 1.7 % Invalid Interpretation Code 0-5 [facility] Work Phone: Eosinophils/100 WBC (Bld) 1.7 % 0-5 [facility] Work Phone: Erythrocyte distribution width Ratio (RBC) 43.0 fL 35.1-43.9 [facility] Work Phone: Erythrocyte distribution width Ratio (RBC) 13.2 % 11.6-14.6 [facility] Work Phone: Erythrocytes (RBC) 4.69 10*6/uL Invalid Interpretation Code 4.6-6.2 [facility] Work Phone: Hematocrit (HCT) 42.4 % Invalid Interpretation Code 40-54 [facility] Work Phone: Hematocrit Volume Fraction (Bld) 42.4 % 40-54 [facility] Work Phone: Hemoglobin mass conc (Bld) 13.7 g/dL Invalid Interpretation Code 13.0-16.5 [facility] Work Phone: Immature granulocytes #/vol (Bld) 0.200 % 0.0-0.9 [facility] Work Phone: immature granulocytes, percentage of total cells, blood 0.200 % Invalid Interpretation Code 0.0-0.9 [facility] Work Phone: Lymphocytes 1.12 X10 3/UL Invalid Interpretation Code 0.83-4.51 [facility] Work Phone: Lymphocytes #/vol (Bld) 1.12 X10 3/UL 0.83-4.51 [facility] Work Phone: Lymphocytes/100 leukocytes 13.6 % Low 19-41 [facility] Work Phone: Lymphocytes/100 WBC (Bld) 13.6 % Low 19-41 [facility] Work Phone: MCH 29.2 pg Invalid Interpretation Code 27.0-32.0 [facility] Work Phone: MCH Entitic mass (RBC) 29.2 pg 27.0-32.0 [facility] Work Phone: MCHC 32.3 G/GL Invalid Interpretation Code 32-36 [facility] Work Phone: MCHC mass conc (RBC) 32.3 G/GL 32-36 [facility] Work Phone: MCV 90.4 fL Invalid Interpretation Code 80-94 [facility] Work Phone: MCV Entitic volume (RBC) 90.4 fL 80-94 [facility] Work Phone: Monocytes/100 leukocytes 10.9 % High 0-10 [facility] Work Phone: Monocytes/100 WBC (Bld) 10.9 % High 0-10 [facility] Work Phone: neutrophil count, blood 6.0 X10 3/UL Invalid Interpretation Code 2.0-7.7 [facility] Work Phone: Neutrophils #/vol (Bld) 6.0 X10 3/UL 2.0-7.7 [facility] Work Phone: Neutrophils/100 leukocytes 73.4 % High 47-70 [facility] Work Phone: Neutrophils/100 WBC (Bld) 73.4 % High 47-70 [facility] Work Phone: Platelet mean volume Entitic volume (Bld) 9.1 fL 6.2-12.0 [facility] Work Phone: Platelets 263 10*3/mm3 Invalid Interpretation Code 150-450 [facility] Work Phone: Platelets #/vol (Bld) 263 10*3/mm3 150-450 [facility] Work Phone: PMV by Betty 9.1 fL Invalid Interpretation Code 6.2-12.0 [facility] Work Phone: RBC #/vol (Bld) 4.69 10*6/uL 4.6-6.2 [facility] Work Phone: RDW-CA 13.2 % Invalid Interpretation Code 11.6-14.6 [facility] Work Phone: red blood cell distribution width, size density 43.0 fL Invalid Interpretation Code 35.1-43.9 [facility] Work Phone: WBC #/vol (Bld) 8.2 10*3/uL 4.4-11.0 [facility] Work Phone: WBC (Leukocytes) 8.2 10*3/uL Invalid Interpretation Code 4.4-11.0 [facility] Work Phone: Microbiology: MRSA/SAID SCRE ENon 09-01-2016 GE use only - for [employer] import when terms are not otherwise specified . Invalid Interpretation Code [facility] Work Phone: MRSA+SAID SCRN . [facility] Work Phone: Lab Report: Thyroid Stim Hor stephanie (TSH)on 08-31-2016 Thyrotropin Qn 1.14 u[iU]/mL Invalid Interpretation Code 0.358-3.74 [facility] Orthopaedics Work Phone: Vital Signs Date Time Vital Sign Value Performing Clinician Facility 12-17-2024 06:41-0400 Body height 177.[address] Ash Mcpherson MD Work Phone: [facility] 12-17-2024 06:41-0400 Body mass index (BMI) [Ratio] 30.7 kg/m2 Dr. Ash Mcpherson MD Work Phone: [facility] 12-17-2024 06:41-0400 Body temperature 98.6 [degF] Dr. Ash Mcpherson MD Work Phone: [facility] 12-17-2024 06:41-0400 Body weight 97.[address] Ash Mcpherson MD Work Phone: [facility] 12-17-2024 06:41-0400 Diastolic blood pressure 78 mm[Hg] Dr. Ash Mcpherson MD Work Phone: [facility] 12-17-2024 06:41-0400 Heart rate 100 /min Dr. Ash Mcpherson MD Work Phone: [facility] 12-17-2024 06:41-0400 SaO2% (BldA) [Mass fraction] 97 % Dr. Ash Mcpherson MD Work Phone: [facility] 12-17-2024 06:41-0400 Systolic blood pressure 124 mm[Hg] Dr. Ash Mcpherson MD Work Phone: [facility] 11-15-2023 07:35-0400 Body height 177.[address] Ash Mcpherson Work Phone: [facility] 11-15-2023 07:35-0400 Body mass index (BMI) [Ratio] 30.4 kg/m2 Dr. Ash Mcpherson Work Phone: [facility] 11-15-2023 07:35-0400 Body weight 96.[address] Ash Mcpherson Work Phone: 6(326)022-132443 [place] [address] 10-18-2023 13:39-0500 Body mass index (BMI) [Ratio] 30.2 kg/m2 Dr. Ash Mcpherson Work Phone: 1(338)249-150243 [place] [address] 10-18-2023 13:39-0500 Body temperature 98 [degF] Dr. Ash Mcpherson Work Phone: 7(642)566-770643 [place] [address] 10-18-2023 13:39-0500 Body weight 95.[address] Ash Mcpherson Work Phone: 6(673)013-231443 [place] [address] 10-18-2023 13:39-0500 Diastolic blood pressure 84 mm[Hg] Dr. Ash Mcpherson Work Phone: 7(183)032-122975 [address] 10-18-2023 13:39-0500 Heart rate 75 /min Dr. Ash Mcpherson Work Phone: 7(825)855-856243 [place] [address] 10-18-2023 13:39-0500 Respiratory rate 16 /min Dr. Ash Mcpherson Work Phone: [facility] 10-18-2023 13:39-0500 Systolic blood pressure 142 mm[Hg] Dr. Ash Mcpherson Work Phone: 7(559)118-447643 [place] [address] 06-09-2023 15:31-0400 Body height 177.[address] Ash Mcpherson Work Phone: [facility] 06-09-2023 15:31-0400 Body mass index (BMI) [Ratio] 29.8 kg/m2 Dr. Ash Mcpherson Work Phone: [facility] 06-09-2023 15:31-0400 Body temperature 98 [degF] Dr. Ash Mcpherson Work Phone: [facility] 06-09-2023 15:31-0400 Body weight 94.[address] Ash Mcpherson Work Phone: [facility] 06-09-2023 15:31-0400 Diastolic blood pressure 70 mm[Hg] Dr. Ash Mcpherson Work Phone: 7(164)772-044375 [address] 06-09-2023 15:31-0400 Heart rate 76 /min Dr. Ash Mcpherson Work Phone: 7(772)039-141575 [address] 06-09-2023 15:31-0400 Respiratory rate 17 /min Dr. Ash Mcpherson Work Phone: 2(015)288-985651 [place] [address] 06-09-2023 15:31-0400 SaO2% (BldA) [Mass fraction] 97 % Dr. Ash Mcpherson Work Phone: 7(897)668-422843 [place] [address] 06-09-2023 15:31-0400 Systolic blood pressure 122 mm[Hg] Dr. Ash Mcpherson Work Phone: 3(856)907-002175 [address] 04-08-2023 08:08-0400 Body temperature 97.7 [degF] Dr. Ash Mcpherson Work Phone: 4(619)241-230075 [address] 04-08-2023 08:08-0400 Diastolic blood pressure 72 mm[Hg] Dr. Ash Mcpherson Work Phone: 6(952)544-820975 [address] 04-08-2023 08:08-0400 Heart rate 70 /min Dr. Ash Mcpherson Work Phone: [facility] 04-08-2023 08:08-0400 Respiratory rate 18 /min Dr. Ash Mcpherson Work Phone: 0(038)260-377675 [address] 04-08-2023 08:08-0400 SaO2% (BldA) [Mass fraction] 96 % Dr. Ash Mcpherson Work Phone: 6(245)942-895743 [place] [address] 04-08-2023 08:08-0400 Systolic blood pressure 107 mm[Hg] Dr. Ash Mcpherson Work Phone: [facility] 04-08-2023 06:48-0400 Body height 177.[address] Ash Mcpherson Work Phone: [facility] 04-08-2023 06:48-0400 Body mass index (BMI) [Ratio] 29.2 kg/m2 Dr. Ash Mcpherson Work Phone: [facility] 04-08-2023 06:48-0400 Body weight 92.[address] Ash Mcpherson Work Phone: [facility] 03-11-2023 08:28-0400 Body height 177.[address] Ash Mcpherson Work Phone: 9(810)266-286175 [address] 03-11-2023 08:28-0400 Body mass index (BMI) [Ratio] 28.7 kg/m2 Dr. Ash Mcpherson Work Phone: 4(500)731-306443 [place] [address] 03-11-2023 08:28-0400 Body weight 90.[address] Ash Mcpherson Work Phone: [facility] 10-21-2022 07:57-0500 Body height 177.[address] Ash Mcpherson Work Phone: [facility] 10-21-2022 07:57-0500 Body mass index (BMI) [Ratio] 30.6 kg/m2 Dr. Ash Mcpherson Work Phone: [facility] 10-21-2022 07:57-0500 Body temperature 98 [degF] Dr. Ash Mcpherson Work Phone: [facility] 10-21-2022 07:57-0500 Body weight 96.[address] Ash Mcpherson Work Phone: [facility] 10-21-2022 07:57-0500 Diastolic blood pressure 80 mm[Hg] Dr. Ash Mcpherson Work Phone: [facility] 10-21-2022 07:57-0500 Heart rate 76 /min Dr. Ash Mcpherson Work Phone: [facility] 10-21-2022 07:57-0500 Respiratory rate 16 /min Dr. Ash Mcpherson Work Phone: [facility] 10-21-2022 07:57-0500 SaO2% (BldA) [Mass fraction] 98 % Dr. Ash Mcpherson Work Phone: [facility] 10-21-2022 07:57-0500 Systolic blood pressure 116 mm[Hg] Dr. Ash Mcpherson Work Phone: [facility] 08-18-2022 06:51-0500 Body temperature 98 [degF] Dr. Ash Mcpherson Work Phone: [facility] 08-18-2022 06:51-0500 Diastolic blood pressure 84 mm[Hg] Dr. Ash Mcpherson Work Phone: [facility] 08-18-2022 06:51-0500 Heart rate 101 /min Dr. Ash Mcpherson Work Phone: [facility] 08-18-2022 06:51-0500 Respiratory rate 14 /min Dr. Ash Mcpherson Work Phone: [facility] 08-18-2022 06:51-0500 SaO2% (BldA) [Mass fraction] 98 % Dr. Ash Mcpherson Work Phone: [facility] 08-18-2022 06:51-0500 Systolic blood pressure 142 mm[Hg] Dr. Ash Mcpherson Work Phone: [facility] 06-28-2022 09:44-0400 Body height 177.[address] Ash Mcpherson Work Phone: [facility] 06-28-2022 09:44-0400 Body mass index (BMI) [Ratio] 29.1 kg/m2 Dr. Ash Mcpherson Work Phone: [facility] 06-28-2022 09:44-0400 Body temperature 98.2 [degF] Dr. Ash Mcpherson Work Phone: 6(062)826-495443 [place] [address] 06-28-2022 09:44-0400 Body weight 92.[address] Ash Mcpherson Work Phone: [facility] 06-28-2022 09:44-0400 Diastolic blood pressure 74 mm[Hg] Dr. Ash Mcpherson Work Phone: [facility] 06-28-2022 09:44-0400 Heart rate 73 /min Dr. Ash Mcpherson Work Phone: [facility] 06-28-2022 09:44-0400 Respiratory rate 16 /min Dr. Ash Mcpherson Work Phone: [facility] 06-28-2022 09:44-0400 SaO2% (BldA) [Mass fraction] 98 % Dr. Ash Mcpherson Work Phone: [facility] 06-28-2022 09:44-0400 Systolic blood pressure 118 mm[Hg] Dr. Ash Mcpherson Work Phone: [facility] 12-27-2021 08:10-0400 Body temperature 98.4 [degF] Dr. Ash Mcpherson Work Phone: [facility] Work Phone: 12-27-2021 08:10-0400 Diastolic blood pressure 70 mm[Hg] Dr. Ash Mcpherson Work Phone: [facility] Work Phone: 12-27-2021 08:10-0400 Heart rate 91 /min Dr. Ash Mcpherson Work Phone: [facility] Work Phone: 12-27-2021 08:10-0400 Respiratory rate 14 /min Dr. Ash Mcpherson Work Phone: [facility] Work Phone: 12-27-2021 08:10-0400 SaO2% (BldA) [Mass fraction] 97 % Dr. Ash Mcphreson Work Phone: [facility] Work Phone: 12-27-2021 08:10-0400 Systolic blood pressure 114 mm[Hg] Dr. Ash Mcpherson Work Phone: [facility] Work Phone: 12-21-2021 08:44-0400 Body temperature 98 [degF] Dr. Ash Mcpherson Work Phone: [facility] Work Phone: 12-21-2021 08:44-0400 Diastolic blood pressure 68 mm[Hg] Dr. Ash Mcpherson Work Phone: [facility] Work Phone: 12-21-2021 08:44-0400 Heart rate 111 /min Dr. Ash Mcpherson Work Phone: [facility] Work Phone: 12-21-2021 08:44-0400 Respiratory rate 16 /min Dr. Ash Mcpherson Work Phone: [facility] Work Phone: 12-21-2021 08:44-0400 SaO2% (BldA) [Mass fraction] 98 % Dr. Ash Mcpherson Work Phone: [facility] Work Phone: 12-21-2021 08:44-0400 Systolic blood pressure 124 mm[Hg] Dr. Ash Mcpherson Work Phone: [facility] Work Phone: 12-21-2021 08:27-0400 Body height 177.[address] Ash Mcpherson Work Phone: [facility] Work Phone: 09-10-2016 06:29-0500 Body surface area Derived from formula 88.34 mL/min [facility] Work Phone: Encounters Encounter Date Encounter Type Care Provider Facility Start: 01-07-2025 End: 01-07-[address] Ash Mcpherson MD Work Phone: [facility] Work Phone: Start: 01-07-2025 End: 01-07-2025 Patient encounter procedure Jose Goad PA -Laboratory, Specimen Work Phone: Start: 01-07-2025 End: 01-07-2025 ambulatory Jose FARIAS Facility:[facility] Start: 12-26-2024 ambulatory Ash Mcpherson Facility:[facility] Start: 12-26-2024 Non-patient / Non-visit Dr. Wilmer Choi MD -[facility] Start: 12-26-2024 End: 12-26-[address] Ash Mcpherson MD Work Phone: [facility] Work Phone: Start: 12-26-2024 End: 12-26-[address] Ash Mcpherson MD -Cardiovascular Services Work Phone: Start: 12-26-2024 End: 12-26-2024 ambulatory Ash Mcpherson Facility:[facility] Start: 12-17-2024 End: 12-17-2024 Patient encounter procedure Spencer FARIAS -[facility] Work Phone: Start: 12-17-2024 End: 12-17-2024 ambulatory Spencer FARIAS Facility:[facility] Start: 12-12-2024 End: 12-12-[address] Ash Mcpherson MD Work Phone: [facility] Work Phone: Start: 12-12-2024 End: 12-12-[address] Ash Mcpherson MD -Laboratory, [place] Work Phone: Start: 12-12-2024 End: 12-12-2024 ambulatory Ash Mcpherson Facility:[facility] Start: 11-07-2024 End: 11-07-[address] Ash Mcpherson MD Work Phone: [facility] Work Phone: Start: 11-07-2024 End: 11-07-[address] Ash Mcpherson MD Work Phone: -Laboratory Work Phone: Start: 11-07-2024 End: 11-07-2024 ambulatory REPLACED BY [facility] Facility:[facility] Start: 08-08-2024 End: 08-08-[address] Ash Mcphesron MD Work Phone: -Laboratory Work Phone: Start: 08-08-2024 End: 08-08-2024 ambulatory REPLACED BY [facility] Facility:[facility] Start: 05-03-2024 ambulatory Health Risk Assessment Facility:[facility] Start: 05-03-2024 End: 05-03-[address] [facility] Facility:[facility] Start: 02-09-2024 End: 02-09-2024 ambulatory Dk Helenarchie Facility:[facility] Start: 01-25-2024 End: 01-25-[address] [facility] Facility:[facility] Start: 12-12-[address] Ash Mcpherson Work Phone: [facility]-Physical Therapy Work Phone: Start: 12-08-2023 End: 12-08-[address] Ash Mcpherson Work Phone: [facility] Work Phone: Start: 12-08-2023 End: 12-08-[address] Ash Mcpherson Work Phone: [facility] Work Phone: Start: 11-15-2023 End: 11-15-[address] Ash Mcpherson Work Phone: [facility] Work Phone: Start: 11-11-2023 End: 11-11-[address] Ash Mcpherson Work Phone: [facility] Work Phone: Start: 11-11-2023 End: 11-11-[address] Ash Mcpherson Work Phone: [facility]-Radiology, [facility] Work Phone: Start: 10-18-2023 End: 10-18-[address] Ash Mcpherson Work Phone: [facility] Plastic Recon Surg Work Phone: Start: 09-15-2023 End: 09-15-[address] Ash Mcpherson Work Phone: [facility] Work Phone: Start: 09-15-2023 End: 09-15-[address] Ash Mcpherson Work Phone: [facility]-Laboratory Work Phone: Start: 06-22-[address] Ash lechuga Work Phone: [facility] Start: 06-16-2023 End: 06-16-[address] Ash Mcpherson Work Phone: [facility] Work Phone: Start: 06-16-2023 End: 06-16-[address] Ash Mcpherson Work Phone: [facility]-Laboratory Work Phone: Start: 06-09-2023 End: 06-09-[address] Ash Mcpherson Work Phone: [facility] Neurology Work Phone: Start: 04-08-2023 Non-patient / Non-visit Dr. Ash Mcpherson Work Phone: [facility] Start: 04-08-2023 End: 04-08-2023 Admission to same day surgery center Dr. Ash Mcpherson Work Phone: [facility]-Endoscopy Work Phone: Start: 04-08-2023 End: 04-08-[address] Ash Mcpherson Work Phone: [facility] Work Phone: Start: 03-11-2023 Non-patient / Non-visit Dr. Ash Mcpherson Work Phone: [facility] Work Phone: Start: 03-09-2023 End: 03-09-[address] Ash Mcpherson Work Phone: [facility] Work Phone: Start: 03-09-2023 End: 03-09-2023 [facility] Start: 03-02-2023 End: 03-02-2023 ambulatory [facility] Work Phone: Start: 03-02-2023 End: 03-02-2023 [facility] Start: 12-06-2022 End: 12-06-[address] Ash Mcpherson Work Phone: [facility] Work Phone: Start: 12-06-2022 End: 12-06-[address] Ash Mcpherson Work Phone: [facility] Start: 10-29-2022 End: 10-29-[address] Ahs [facility]pher[facility] Start: 10-21-2022 End: 10-21-[address] Ash Mcpherson Work Phone: [facility] Neurology Start: 09-07-2022 End: 09-07-[address] Ash Mcpherson Work Phone: [facility] Work Phone: Start: 09-07-2022 End: 09-07-[address] [facility] Start: 08-18-2022 End: 08-18-[address] Ash Mcpherson Work Phone: [facility] Start: 07-08-2022 End: 07-08-[address] Ash Mcpherson Work Phone: [facility] Work Phone: Start: 07-08-2022 End: 07-08-[address] Ash Mcpherson Work Phone: [facility]-Laboratory Start: 06-30-2022 End: 06-30-[address] Ash Mcpherson Work Phone: [facility] Work Phone: Start: 06-30-2022 End: 06-30-[address] [facility] Start: 06-28-2022 End: 06-28-[address] Ash Mcpherson Work Phone: [facility] Neurology Start: 06-09-2022 End: 06-09-[address] Ash Mcpherson Work Phone: [facility] Work Phone: Start: 06-09-2022 End: 06-09-[address] [facility] Start: 05-31-2022 Non-patient / Non-visit Dr. Ash Mcpherson Work Phone: [facility] Start: 05-31-2022 End: 05-31-[address] Ash Mcpherson Work Phone: [facility] Work Phone: Start: 05-31-2022 End: 05-31-[address] Ash Mcpherson Work Phone: [facility]-Pulmonary Services/Neurology Start: 03-09-2022 End: 03-09-[address] Ash Mcpherson Work Phone: [facility]-Laboratory Start: 03-02-[address] Ash lechuga Work Phone: [facility] Start: 03-02-2022 End: 03-02-[address] Ash Mcpherson Work Phone: [facility] Start: 12-27-2021 End: 12-27-[address] Ash Mcpherson Work Phone: [facility] Start: 12-21-2021 End: 12-21-[address] Ash Mcpherson Work Phone: [facility] Start: 12-04-2021 End: 12-04-[address] Ash Mcpherson Work Phone: [facility] Start: 09-10-2021 End: 09-10-[address] Ash Mcpherson Work Phone: [facility] Start: 09-02-[address] Ash Mcpherson Work Phone: [facility] Start: 08-26-2021 End: 08-26-[address] Ash Mcpherson Work Phone: [facility] Virtual Visit Start: 08-26-[address] Ash lechuga Work Phone: [facility] Start: 08-26-2021 End: 08-26-[address] Ash Mcpherson Work Phone: [facility] Procedures Date Procedure Procedure Detail Performing Clinician Start: 12-26-2024 Radionuclide imaging of perfusion of myocardium under exercise stress Dr. Ash Mcpherson MD Work Phone: Start: 12-08-2023 MRI of lumbar spine Dr. Ash Mcpherson Work Phone: Start: 11-11-2023 X-ray of lumbosacral spine Dr. Ash Mcpherson Work Phone: Start: 04-08-[address] Ash Mcpherson Work Phone: Start: 06-30-2022 X-ray of lumbar spine, two or three views Dr. Ash Mcpherson Work Phone: Start: 08-26-2021 Influenza Types A,B Direct FA (KARON) Dr. Ash Mcpherson Work Phone: Start: 08-11-2016 End: 09-01-2016 X-ray exam l-s spine bending Nolberto Noni Maloney Work Phone: Start: 07-23-2016 End: 09-01-2016 Mri jnt of lwr extre w/o dye Nolberto Maloney Work Phone: Start: 05-07-2016 End: 05-20-2016 Drain/inject, joint/bursa Nolberto Maloney Work Phone: Start: 05-07-2016 End: 09-01-2016 X-ray exam, knee, 4 or more Nolberto Maloney Work Phone: History of operative procedure on knee S/P left unicompartmental knee replacement Dr. Ash Mcpherson Work Phone: Plan of Treatment Date Care Activity Detail Author Start: 11-16-2023 Patient referral [facility] Work Phone: Start: 04-08-2023 Patient discharge [facility] Start: 03-14-2017 End: 03-14-2017 X-ray exam, knee, 4 or more X-Ray, Knee [facility] Work Phone: Start: 10-18-2016 End: 10-18-2016 X-ray exam, knee, 4 or more X-Ray, Knee [facility] Work Phone: Start: 08-11-2016 End: 09-01-2016 X-ray exam l-s spine bending X-Ray, Spine, Lumbar, complete with bending views [facility] Work Phone: Start: 07-23-2016 End: 09-01-2016 Mri jnt of lwr extre w/o dye MRI Joint Lower Extremity [facility] Work Phone: Start: 05-07-2016 End: 09-01-2016 X-ray exam, knee, 4 or more X-Ray, Knee [facility] Work Phone: Colonoscopy [facility] MR Lumbar spine [facility] Patient Education BACK[facility]20[facility] Work Phone: Patient referral [facility] Work Phone: Immunizations Immunization Date Immunization Notes Care Provider Fa cility 07-19-2024 influenza, seasonal, injectable, preservative free Dr. Ash Mcpherson MD Work Phone: [facility] 07-11-2023 influenza, injectabl e, quadrivalent, preservative free Dr. [facility] Mcpherson Work Phone: [facility] [facility] 06-23-2022 influenza, injectabl e, quadrivalent, preservative free Dr. Ash Mcpherson Work Phone: [facility] 06-23-2022 influenza, seasonal, injectable Dr. Ash Mcpherson Work Phone: [facility] 05-21-2022 Covid Jennifer Bivale nt Booster Dr. Ash Mcpherson Work Phone: [facility] 07-08-2021 Alanna PratherModerna) Dr. Ash cartagena Work Phone: [facility] 06-02-2021 influenza, injectabl e, quadrivalent, preservative free Dr. Ash Mcpherson Work Phone: [facility] 06-02-2021 influenza, seasonal, injectable Dr. Ash Mcpherson Work Phone: [facility] 10-06-2020 Alanna (Moderna) Dr. Ash cartagena Work Phone: [facility] 09-08-2020 Alanna PratherModerna) Dr. Ash cartagena Work Phone: [facility] 06-23-2020 influenza, injectabl e, quadrivalent, preservative free Dr. Ash Mcpherson Work Phone: [facility] 06-23-2020 influenza, seasonal, injectable Dr. Ash Mcpherson Work Phone: [facility] 03-10-2020 hepatitis B vaccine, adult dosage Dr. Ash Mcpherson Work Phone: [facility] 10-11-2019 hepatitis B vaccine, adult dosage Dr. Ash Mcpherson Work Phone: [facility] 09-10-2019 hepatitis B vaccine, adult dosage Dr. Ash Mcpherson Work Phone: [facility] 09-10-2019 influenza, injectabl e, quadrivalent, preservative free Dr. Ash Mcpherson Work Phone: [facility] 09-10-2019 influenza, seasonal, injectable Dr. Ash Mcpherson Work Phone: [facility] 05-07-2016 tetanus and diphther ia toxoids, adsorbed, preservative free, for adult use (2 Lf of tetanus toxoid and 2 Lf of diphtheria toxoid) Dr. Ash Mcpherson Work Phone: [facility] Payers Date Payer Category Payer Self-pay [id number] 2014 Unknown [id number] Private Health Insurance [id number] Unknown [id number] Unknown [facility] [employer] [facility] [employer] [facility] [id number] Unknown [facility] [id number] Unknown [id number] Unknown [id number] Unknown [id number] Unknown [id number] Unknown [id number] Unknown [id number] Unknown [id number] Unknown [id number] Unknown [id number] Unknown [id number] Unknown [id number] Unknown [id number] Social History Date Type Detail Facility Start: 08-26-2021 End: 11-15-2023 Tobacco smoking status NHIS Unknown if ever smoked [facility] Start: 1965 Sex Assigned At Male [facility] Start: 12-14-2023 Tobacco smoking stat us NHIS Never smoked tobacco (finding) [facility] Start: 11-21-2024 End: 12-31-2024 Sex Male (finding) [facility] Goals Date Patient Goal Desired Activity /State Mental Status Date Assessment Result Facility 04-08-2023 Cognitive function Voice/Name [facility] Work Phone: Clinical Notes 04-08-2023 Note Date & Type Note Facility 04-08-2023 Procedure note [facility] 04-08-2023 Procedure note [facility] Chief complaint+Reason for v isit Narrative Reason for Visit Viral URI with cough [facility] Work Phone: Evaluation note* Diagnosis Onset Date Resolution Status Viral URI with cough acute [facility] Work Phone: Evaluation note* Diagnosis Onset Date Resolution Status Viral URI with cough acute Acute bacterial sinusitis [place] Cough acute [facility] Work Phone: Ujaluation noteNo assessment information available [facility] Work Phone: Evaluation note* Diagnosis Onset Date Resolution Status Low back pain chronic Polyneuropathy chronic RLS (restless legs syndrome) chronic [facility] Work Phone: Evaluation note* Diagnosis Onset Date Resolution Status Low back pain chronic Polyneuropathy chronic RLS (restless legs syndrome) chronic COVID-19 acute [facility] Work Phone: Evaluation note* Diagnosis Onset Date Resolution Status COVID-19 acute Low back pain chronic Polyneuropathy chronic [facility] Work Phone: Evaluation note* Diagnosis Onset Date Resolution Status Polyneuropathy chronic [facility] Work Phone: Evaluation note* Diagnosis Onset Date Resolution Status 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 Squamous cell skin cancer [place] Spondylolisthesis, lumbar region acute [facility] Work Phone: History and physical note Author Clarice Gibbs [facility] April 08, 2023 7:23am Note Date/Time April 08, 2023 7:2 4am [facility] Medical Records Department [address] [place] [id number] History & Physical Exam 04/08/23 0722 MR#: [id number] Acct: [id number] Name: RAMU BARLOW Rep #:[id number] : 1965 58 From: Clarice Gibbs MD PCP: Dr. Ash Mcpherson MD Status:REG S DC Location: [place] [address]-1 HPI - General General Date of Service: 04/08/23 HPI Narrative RAMU BARLOW, is a 58 M who presents for screening colonoscopy history of colon polyps. Patient's last colonoscopy was in March 2018 patient did have hyperplastic polyp transverse colon and had a polyp that was in normal colon mucosa at that time. Patient's father did have colon cancer but was diagnosed at age 82. Patient's bowel movements daily denies any blood. Patient Nuys any chronic abdominal pain/nausea/vomiting/reflux. [facility] Medical History (Updated 04/04/23 @ 15:54 by Cyndie Hawkins) Adalimumab (Humira) long-term use Arthritis Bone neoplasm Bronchitis COVID-19 CPAP (continuous positive airway pressure) dependence Depressive disorder GERD (gastroesophageal reflux disease) History of IBS Hx of colonic polyps Hypothyroidism Left knee pain Morning joint stiffness of left hand SVITLANA (obstructive sleep apnea) Osteoarthritis of fingers of hands, bilateral Osteoarthritis of left knee Pain in thumb joint with movement of left hand Psoriasis Psoriatic arthritis RLS (restless legs syndrome) Sleep apnea Swelling of finger joint of left hand Thyroid disease Tinnitus URI (upper respiratory infection) Wears glasses Home Medications adalimumab 10 mg/0.2 mL subcutaneous syringe kit 40 mg SQ UD 05/07/16 [History Last Taken 08/22/16] levothyroxine 100 mcg tablet 100 mcg PO DAILY 05/07/16 [History Last Taken 09/09/16 08:00] Allergy/AdvReac Type Severity Reaction Status Date / Time No Known Allergies Allergy Verified 04/08/23 06:47 Family History Father Diabetes Hypertension SVITLANA (obstructive sleep apnea) Other Arthritis Surgical History History of hand surgery History of left knee replacement Hx of colonoscopy S/P left knee arthroscopy S/P left unicompartmental knee replacement Social History household members: spouse housing: house current occupational status: employed Smoking Status: Never smoker second hand exposure: No alcohol intake: current details: occasionally substance use type: does not use what type of physical activity do you participate in: none danny/congregational: Mosque seatbelt use: always Past Medical/Surgical History Planned Operation Planned Operative Procedure/s: CSCOPE S.O.S: No Previous Hospitalizations/Surgeries HX Hospitalizations: No HX of Surgeries: left knee mcl repair 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 colonoscopy Any Problems With Anesthesia: No You/Your Family Experience Fever (Hyperthermia) With Anes: No Cholinesterase deficiency: No Cardiovascular Hx Chest Pain within Last 2 months: No Hx of Irregular Heartbeat and/or Afib: No Hx Heart Attack: No Hx Congestive Heart Failure: No Hx Rheumatic Fever: No Hx Hypertension: No Hx Internal Defibrillator: No Hx Pacemaker: No Hx Cardiac Catheterization: No Hx Cardiac Surgery/Stents/Etc.: No Hx Stress Test: No Hx Pain in Legs when Walking/Leg Cramps: No Respiratory Chronic Cough: No HX of Shortness of Breath: No Hoarseness: No Hx Chronic Obstructive Pulmonary Disease (COPD): No Hx Asthma: No Hx Emphysema: No Hx Sleep Apnea: Yes CPAP: Yes (NON COMPLIANT) BIPAP: No Hx Respiratory Tract Infection/Cold (presently): No Result (for STOP score): Positive Hx Smoking: No Smoking Status: Never smoker Gastrointestinal Hx Gastroesophageal Reflux: Yes (no meds/watches caffeine intake) Controlled With Meds: No Hx Gastrointestinal Disorders: No Hx Gastrointestinal Bleed: No Hx Ulcer: No Hx Hiatal Hernia: No Difficulty Chewing/Swallowing: No Special diet followed at home: No Hx Unplanned Weight Loss of 20#: No HX Unplanned Weight Gain of 20#: No Neurological Hx Seizures: No HX Syncope/Blackout Spells/Unconsciousness: No Hx Transient Ischemic Attacks (TIA): No Hx Multiple Sclerosis: No Hx Parkinson's Disease: No Hx Head/Neck Injury: No Hx Headaches: No Hx Back Injury/Pain: No Recent Onset of Speech Difficulty: No Restless Legs: Yes Does patient have nerve stimulator: No Blood Disorder Hx Leukemia: No Bleeding Tendencies: No Hx Deep Vein Thrombosis: No Hx High Cholesterol: No Blood Transmitted Disease: No Hx Hepatitis: No Hx Cirrhosis: No Hx Anemia: No Hx Blood Disorders: No Genitourinary Hx Renal Disease: No Musculoskeletal Hx Arthritis: Yes (psoratic arthritis) Hx Rheumatoid Arthritis: No Hx Gout: No Recent Onset of an Orthopedic Problem: No Endocrine Hx Diabetes: No Thyroid Disease: Yes (on med) Hx Steroid Therapy: Yes (left knee injection 4 weeks ago) Psycho/Social Hx Substance Use: No Hx Alcohol Use: Yes (social) Hx Anxiety: No Hx Depression: Yes (on med) Mental Illness: No Hx Dementia: No Miscellaneous Hx Cancer: No Recent Exposure to Contagious Disease: No Hx of C-Diff: No Any Loose Teeth: No Allergies No Known Allergies Allergy (Verified 04/08/23 06:47) Discharge Is Pt Admitted From a Usp, or a Intermediate: No After D/C, Where Do you Plan to Go: Return Home Vital Signs Vital Signs Vital Signs: 04/08/23 06:48 04/08/23 06:48 Temperature 97.8 F Temperature Source Temporal Pulse Rate 81 Respiratory Rate 18 Respiratory Pattern Normal Blood Pressure 145/90 H Blood Pressure Mean 108 Blood Pressure Source Monitor Blood Pressure Position Sitting Blood Pressure Location Left Arm Pulse Ox 99 Oxygen Delivery Method Room Air Weight Weight: 203 lb 7.787 oz Body Mass Index (BMI) 29.2 Physical Exam Const alert, oriented x3 and no apparent distress HEENT normocephalic and head/scalp atraumatic Resp normal respiratory effort Cardio regular rate GI soft to palpation and non-tender; Negative for non-distended Palpation: Negative for guarding Extremity no clubbing, cyanosis or edema Neuro CN's II-XII intact bilaterally Psych mental status grossly normal Surgery Risks - Colonoscopy I discussed with the patient the risks of the procedure: Yes Risks Include but are not Limited To: Risks include but are not limited to: Bleeding, perforation requiring further surgery, inability to complete colonoscopy requiring barium enema. 04/08/23722 <Electronically signed by Clarice Gibbs MD> Cosigner Signature (if applicable): CC: Dr. Ash Mcpherson MD; Dr. Clarice Gibbs MD~ Signed [facility] Work Phone: Hospital Discharge instructionsAmbulatory Orders* Physical Therapy Referral Location: None Selected [facility] Work Phone: Reason for referral (narrative)No reason for referral information [facility] Foundation Work Phone: Family History No Family History Records Found Relationship Condition Age at Onset Recorded Date/T nicole Not Specified Arthritis Unknown father Diabetes mellitus Unknown Hypertension Unknown Obstructive sleep apnea syndrome Unknown Advance Directives No Advanced Directives Records Found Advance Directive Response Recorded Date/ Time Advance Directives Yes September 09, 2016 4:19pm Living Will Yes September 15 5:44pm Power of Business Services Analyst Yes September 15, 2020 5:44pm Advance Directive Response Recorded Date/ Time Advance Directives Yes December 21 8:27am Living Will Yes December 21, 2021 8:27am Power of Business Services Analyst Yes December 21 8:27am Advance Directive Response Recorded Date/ Time Advance Directives Yes December 21 7:27am Living Will Yes December 21, 2021 7:27am Power of Business Services Analyst Yes December 21 7:27am Advance Directive Response Recorded Date/ Time Name of Medical Power of Business Services Analyst - ALICIA April 04, 2023 3:47pm Advance Directives Yes December 21, 8:27am Living Will Yes April 04, 2023 3:47pm Power of Business Services Analyst Yes April 04 3:47pm Advance Directive Response Recorded Date/ Time Advance Directives Yes December 21 7:27am Living Will Yes April 04, 2023 2:47pm Power of Business Services Analyst Yes April 04 2:47pm Advance Directive Response Recorded Date/ Time Advance Directives Yes December 21 8:27am Living Will Yes April 04, 2023 3:47pm Power of Business Services Analyst Yes April 04 3:47pm Advance Directive Response Recorded Date/ Time Advance Directives Yes December 21 8:27am Chief Complaint and Reason for Visit Chief Complaint COVID TEST/[facility] [employer] [place]/SYMPTOMATIC SINUS 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 Reason for Visit Viral URI with cough Acute bacterial sinusitis Cough Chief Complaint 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 BILAT LOWER EXT NUMBNESS AND TINGL[place] BILAT LOWER EXT NUMBNESS AND TINGLING Chief Complaint BILAT LOWER EXT NUMB NESS AND [place]INGL[place] BILAT LOWER EXT NUMBNESS AND [place]ING[place] NUMBNESS/TINGLING E ORDERS Reason for Visit Low back pain Polyneuropathy RLS (restless legs syndrome) Chief Complaint BILAT LOWER EXT NUMB NESS AND [place]INGL[place] BILAT LOWER EXT NUMBNESS AND TINGLING NUMBNESS/TINGLING E ORDERS INT LABS Reason for Visit Low back pain Polyneuropathy RLS (restless legs syndrome) Chief Complaint BILAT LOWER EXT NUMB NESS AND [place]INGL[place] BILAT LOWER EXT NUMBNESS AND TINGLING NUMBNESS/TINGLING E ORDERS INT LABS COVID TEST/[facility] EMPLOYEE SORE THROAT/SINUS CONCERN/FEVER/COVID TEST/[facility] EMP Reason for Visit Low back pain Polyneuropathy RLS (restless legs syndrome) COVID-19 Chief Complaint COVID TEST/[facility] [employer] [place] SORE THROAT/SINUS CONCERN/FEVER/COVID TEST/[facility] EMP 4 M FU Reason for Visit COVID-19 Low back pain Polyneuropathy Chief Complaint Amb Documentation Chief Complaint Amb Documentation 6 M FU Reason for Visit Polyneuropathy Chief Complaint 6 M FU 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 Squamous cell skin cancer Spondylolisthesis, lumbar region Chief Complaint Admit Date SINUS DRAINAGE, COUGH, COLD SYMPTOMS Dec 6:37am EMPLOYEE [employer] December 17, 2024 6:4 9am Chief Complaint Admit Date SINUS DRAINAGE, COUGH, COLD SYMPTOMS Dec 6:37am EMPLOYEE [employer] December 17, 2024 6:4 9am CHEST PAIN December 26, 2024 6:0 1am CHEST PAIN December 26, 2024 4:5 9pm Summary Purpose Additional Source Comments Goals (unrecognized section and content) Goals may be documented in a n alternate sectionGoals may be documented in an alternate sectionGoals may be documented in an alternate sectionGoals may be documented in an alternate sectionGoals may be documented in an alternate sectionGoals may be documented in an alternate sectionGoals may be documented in an alternate sectionGoals may be documented in an alternate sectionGoals may be documented in an alternate sectionGoals may be documented in an alternate sectionGoals may be documented in an alternate sectionGoals may be documented in an alternate sectionGoals may be documented in an alternate sectionGoals may be documented in an alternate sectionGoals may be documented in an alternate sectionGoals may be documented in an alternate sectionGoals may be documented in an alternate sectionGoals may be documented in an alternate section Care Teams (unrecognized sec tion and content) Team Status: Active Member Role Status Dates Dr. Ash Mcpherson MD Family Provider Active Dr. Ash Mcpherson MD Primary Care Provider Active Team Status: Active Member Role Status Dates Dr. Ash Mcpherson MD Primary Care Provi brian, Referring Provider, Other Provider Active Dr. Augustus Merino DO Attending Provider Active Team Status: Inactive Member Role Status Dates Dr. Ash Mcpherson MD Primary Care Provider, Referring Provider Active Dr. Dk Caruso MD Attending Provider Active Team Status: Inactive Member Role Status Dates Dr. Ash Mcpherson MD Primary Care Provider, Referring Provider Active Spencer Brush PA, PA Attending Provider Active Team Status: Inactive Member Role Status Dates Dr. Ash Mcpherson MD Primary Care Provi brian, Attending Provider, Referring Provider Active Team Status: Inactive Member Role Status Dates Dr. Ash Mcpherson MD Primary Care Provider Active TAMY HUIZAR Attending Provider, Referring Provider Active Team Status: Inactive Member Role Status Dates Dr. Ash Mcpherson MD Primary Care Provider Active Dr. Dk Caurso MD Attending Provider, Referring Provider Active Team Status: Inactive Member Role Status Dates Dr. Ash Mcpherson MD Primary Care Provider Active Dr. Jose Caro MD Attending Provider, Referring Pro vider Active Team Status: Inactive Member Role Status Dates Dr. Ash Mcpherson MD Primary Care Provider Active Dr. Dk Caruso MD Attending Provider Active Dk BRAGA MD Referring Provider Active Team Status: Inactive Member Role Status Dates Dr. Ash Mcpherson MD Primary Care Provider Active TAMY HUIZAR Attending Provider Active Team Status: Active Member Role Status Dates Dr. Ash Mcpherson MD Primary Care Provider Active Dr. Jose Caro MD Attending Provider, Referring Pro vider Active Team Status: Active Member Role Status Dates Dr. Ash Mcpherson MD Primary Care Provider Active Nayeli Shanks Attending Provider Active Team Status: Active Member Role Status Dates Dr. Ash Mcpherson MD Primary Care Provider, Referring Provider Active Dr. Clarice Gibbs MD Attending Provider, Other Pro vider Active Team Status: Inactive Member Role Status Dates Dr. Ash Mcpherson MD Primary Care Provider, Referring Provider Active Dr. Clarice Gibbs MD Attending Provider Active Team Status: Inactive Member Role Status Dates Dr. Ash Mcpherson MD Primary Care Provider Active DAYANARA HUIZAR Attending Provider, Referring Prov ider Active Team Status: Active Member Role Status Dates Dr. Ash Mcpherson MD Primary Care Provider Active Health Risk Assessment Attending Provider, Referring P rovider Active Team Status: Inactive Member Role Status Dates Dr. Ash Mcpherson MD Primary Care Provider, Referring Provider Active Dr. Zenobia Paul MD Attending Provider Active Team Status: Inactive Member Role Status Dates Dr. Ash Mcpherson MD Primary Care Provider, Referring Provider Active Dr. Nam Cifuentes MD Attending Provider Active Team Status: Inactive Member Role Status Dates Dr. Ash Mcpherson MD Primary Care Provider Active Dr. Nam Cifuentes MD Attending Provider, Referring Pr ovider Active Team Status: Active Member Role Status Dates Dr. Ash Mcpherson MD Primary Care Provider Active Dr. Nam Cifuentes MD Attending Provider, Referring Pr ovider Active Team Status: Inactive Member Role Status Dates Dr. Ash Mcpherson MD Primary Care Provider Active Start: August 08, 2024 End: August 08, 2024 DAYANARA HUIZAR Attending Provider Active St art: August 08, 2024 End: August 08, 2024 Team Status: Inactive Member Role Status Dates Dr. Ash Mcpherson MD Primary Care Provider Active Start: November 07, 2024 End: November 07, 2024 DAYANARA HUIZAR Attending Provider Active St art: November 07, 2024 End: November 07, 2024 DAYANARA HUIZAR Referring Provider Active St art: November 07, 2024 End: November 07, 2024 Team Status: Inactive Member Role Status Dates Dr. Ash Mcpherson MD Primary Care Provider Active Start: December 12, 2024 End: December 12, 2024 Dr. Ash Mcpherson MD Attending Provider Active Start: December 12, 2024 End: December 12, 2024 Dr. Ash Mcpherson MD Referring Provider Active Start: December 12, 2024 End: December 12, 2024 Team Status: Inactive Member Role Status Dates Dr. Ash Mcpherson MD Primary Care Provider Active Start: December 17, 2024 End: December 17, 2024 Dr. Ash Mcpherson MD Referring Provider Active Start: December 17, 2024 End: December 17, 2024 Spencer Brush PA, PA Attending Provider Active Start: December 17, 2024 End: December 17, 2024 Team Status: Active Member Role Status Dates Dr. Ash Mcpherson MD Primary Care Provider Active Team Status: Inactive Member Role Status Dates Dr. Ash Mcpherson MD Primary Care Provider Active Start: December 26, 2024 End: December 26, 2024 Dr. Ash Mcpherson MD Attending Provider Active Start: December 26, 2024 End: December 26, 2024 Dr. Ash Mcpherson MD Referring Provider Active Start: December 26, 2024 End: December 26, 2024 Team Status: Active Member Role Status Dates Dr. Ash Mcpherson MD Primary Care Provider Active Start: December 26, 2024 Dr. Ash Mcpherson MD Referring Provider Active Start: December 26, 2024 Dr. Ash Mcpherson MD Other Provider Active Star t: December 26, 2024 Dr. Wilmer Choi MD Attending Provider Active S tart: December 26, 2024 Team Status: Inactive Member Role Status Dates Dr. Ash Mcpherson MD Primary Care Provider Active Start: January 07, 2025 End: January 07, 2025 BENOIT Acosta Attending Provider Active Sta rt: January 07, 2025 End: January 07, 2025 BENOIT Acosta Referring Provider Active Sta rt: January 07, 2025 End: January 07, 2025 (unrecognized sect ion and content) No Status Records Found INFORMATION SOURCE (unrecogn ized section and content) DATE CREATED AUTHOR 01/18/2025 [facility] FOR RECORDS PERTAINING TO PATIENTS WHO ARE [...] BE BASED ON THE PRIMARY CLINICAL RECORDS. [employer] provides no warranty or guarantee of the accuracy or completeness of information in this document.
[2025-02-06 07:47] LABS: Absolute Neutrophil Count 2.5 X10^3/uL (2.0-7.7); Basophil# 0.06 X10^3/uL; Basophil% 1.1 % (0-1); Eosinophils% 3.6 % (0-5); Hematocrit 47.1 % (40-54); Hemoglobin 15.9 g/dL (13.0-16.5); Lymphocyte % 39.4 % (19-41); Mean Corp Hgb Conc 33.8 g/dL (32-36); Mean Corpuscular Hgb 30.5 pg (27.0-32.0); Mean Corpuscular Volume 90.4 fL (80-94); Mean Platelet Vol. 9.6 fl (6.2-12.0); Monocyte# 0.59 X10^3/uL; Monocyte% 10.6 % (0-10); NRBC Flagged by Analyzer 0 % (0-5); Neutrophil # 2.51 X10^3/uL (2.7-7.7); Neutrophil % 44.8 % (47-70); Platelet Count 321 K/mm3 (150-450); RBC Distribution Width SD 42.9 fl (35.1-43.9); Red Blood Count 5.21 M/mm3 (4.6-6.2); White Blood Count 5.6 K/mm3 (4.4-11.0)
[2025-02-06 07:51] LABS: AST(SGOT) 27 U/L (<=37); Alanine Aminotransfer ALT/SGPT 20 U/L (<=46); Alkaline Phosphatase 87 U/L (40-129); Bilirubin, Direct 0.18 mg/dL (0.00-0.30); CRP 3.12 mg/L (0.0-3.0); Creatinine, Serum 0.92 mg/dL (0.70-1.20); EST Glomerular Filtration Rate 96 (>60); Globulin 2.6 g/dL (2.2-4.2); Protein, Total 6.6 g/dL (5.9-8.4); Total Bilirubin 0.51 mg/dL (0.00-1.30)
[2025-02-06 07:53] LABS: Erythrocyte Sedimentation Rate 7 mm/hr (0-20)
== END | disposition home or self-care (01) ==
PROVIDERS: PCP Family Medicine
DX: L40.50 Arthropathic psoriasis, unspecified (principal); Z79.899 Other long term (current) drug therapy
CPT/HCPCS: 36415; 80076; 82565; 85025; 85652; 86140

== ENCOUNTER → 2025-02-28 | Outpatient (CLI) | payer OTHER, SELFPAY ==
--- OUTSIDE RECORDS SUMMARY | 2025-02-28 06:35 | XMS RPT_ITS | CCD ---
Author Organization [facility] CliniSyil Care Team Providers Care Gearcase Assembler Name Role Phone Magda Vicente N Unavailable [...] Attending Provider MD Dk Braga Referring Provider Unany ilable Ky, Dr. Aleman Primary Care Provider [...] Larios Attending Provider Jose Larios Referring Provider Gregory MAYER-CDaiana Attending Provider Jose Caro Referring Unavailable Tamy, Jose Attending Unavailable Mcpherson, Ash Primary Care Unavailable BALL, EVA Referring Unavailable BALL, EVA Attending Unavailable Mcpherson, Ash Primary Care Unavailable Janiya FARIAS, Jose Referring Unavailable Janiya PA, Jose Attending Unavailable Mcpherson, Ash Primary Care Unavailable Mcpherson, Ash Primary Care Unavailable Mcpherson, Ash Referring Unavailable Mcpherson, Ash Attending Unavailable Assessment, Health Risk Referring Unavaila ble Assessment, Health Risk Attending Unavaila ble Mcpherson, Ash Primary Care Unavailable Mcpherson, Ash Attending Unavailable Mcpherson, Ash Primary Care Unavailable Mcpherson, Ash Referring Unavailable Spencer Joseph Attending Unavailable Mcpherson, Ash Primary Care Unavailable Mcpherson, Ash Referring Unavailable Spencer Joseph Attending Unavailable Mcpherson, Ash Primary Care Unavailable Mcpherson, Ash Referring Unavailable Mcpherson, Ash Referring Unavailable Daiana Jenkins Attending Unavailable Mcpherson, Ash Primary Care Unavailable Mcpherson, Ash Primary Care Unavailable Mcpherson, Ash Referring Unavailable Wilmer Choi Attending Unavailable Mcpherson, Ash Consulting Unavailable BALL, EVA Referring Unavailable BALL, EVA Attending Unavailable Mcpherson, Ash Primary Care Unavailable BALL, EVA Attending Unavailable Mcpherson, Ash Primary Care Unavailable [...] 05-07-2016 HUMIRA 10 MG/0 .2ML PSKT ADALIMUMAB [id number] Nolberto Maloney Start: 05-07-2016 HUMIRA 10 MG/0 .2ML PSKT ADALIMUMAB [id number] Nolberto Maloney Adalimumab 10 mg/0.2 mL syringe kit (1 source) Start: 02-25-2025 inject 40 mg by subcutaneous injection every other week Adalimumab 10 mg/0.2 mL syringe kit Active 40 mg SC .COMPLEX February 25, 2025 3:02pm 40 mg subcutaneously every 2 weeks; levothyroxine sodium 0.1 mg oral tablet (20 sources) l-Thyro xine Start: 05-07-2016 take 1 tablet by mouth once daily Levothyroxine 100 MCG tablet Active 100 ug PO DAILY May 07, 2016 12:00am Completed/Discontinued Medications Medication Drug Class(es) Dates Sig [...] 31, 2016 1:00am August 18, 2017 12:44pm Adalimumab 10 MG/0.2 ML syri nge kit (6 sources) Start: 05-07-2016 End: 02-25-2025 Adalimumab 10 MG/0.2 ML syri nge kit Discontinued 40 mg SQ DIRECTED May 07, 2016 12:00am February 25, 2025 3:03pm Start: 05-07-2016 Adalimumab 10 MG/0.2 ML syringe kit Active 40 mg SQ DIRECTED May 07, 2016 12:00am amoxicillin 875 mg / clavulanate 125 mg [...] 10, 2016 1:00am August 18, 2017 12:44pm benzonatate 200 mg oral capsule (20 sources) Non-narcotic Antitussive Start: 12-17-2024 End: 02-25-2025 take 1 capsule by mouth three times daily as needed for cough Benzonatate 200 mg capsule Discontinued 200 mg PO THREE TIMES A DAY as needed for cough December 17, 2024 12:00am February 25, 2025 3:02pm Start: 08-18-2022 End: 10-21-2022 take 1 capsule [...] 31, 2017 1:00am January 13, 2018 1:34pm 12 hr buPROPion hydrochloride 150 mg extended [...] 05-07-2016 BUPROPION HCL ER (SR) 150 MG [id number] BUPROPION HCL [id number] Nolberto Maloney diazePAM 5 mg oral tablet [...] po twice daily as needed DOCUSATE SODIUM [id number] Nolberto Maloney Start: 09-20-2016 take 2 capsules by m outh twice daily as needed COLACE 100 MG CAPS 2 po twice daily as needed DOCUSATE SODIUM [id number] Nolberto Maloney Start: 09-10-2016 End: 08-19-2017 take [...] 6:47am Lactobacillus Combination No.4 1 EACH capsule (6 sources) Start: 03-13-2018 End: 04-24-2020 take 1 [...] 05-07-2016 MELOXICAM 15 M G TABS MELOXICAM [id number] Noblerto Maloney methylPREDNISolone 4 mg oral tablet (8 sources) Corticosteroid Start: 12-17-2024 End: 02-25-2025 take 1 tablet by mouth once Methylprednisolone (Medrol (Jamar)) 4 mg tablets,dose pack Discontinued 0 PO per package directions December 17, 2024 12:00am February 25, 2025 3:02pm PO PER PKG DIR Start: 08-11-2016 METHYLPREDNISO LONE 4 MG TBPK take as directed METHYLPREDNISOLONE [id number] Nolberto Maloney Start: 08-11-2016 METHYLPREDNISO LONE 4 MG TBPK take as directed METHYLPREDNISOLONE [id number] Nolberto Maloney Nirmatrelvir-Ritonavir (15 sources) Start: 08-18-2022 End: 10-21-2022 Nirmatrelvir-Ritonavir (Paxl [...] RANITIDINE HCL 150 MG TABS RANITIDINE HCL [id number] Nolberto Maloney rOPINIRole 0.25 mg oral tablet [...] Onset: 05-07-2016 05-20-2016 Chronic Other acquired deformities (13 sources) Spondylolisthesis, lumbar region; Translations: [Lumbar spondylolisthesis] Onset: 08-11-2016 08-16-2016 Episodic Other aftercare (20 sources) 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; Translations: [Other retirement (current) drug therapy] 07-26-2021 Episodic Other aftercare (1 source) Other termination clerk (current) drug therapy; Translations: [Other retirement (current) drug therapy] Onset: 02-13-2025 Episodic Other connective tissue disease (2 sources) Presence of unspecified artificial knee joint; Translations: [Presence of unspecified artificial knee joint] Onset: 03-14-2017 03-23-2017 Chronic Other connective tissue disease (18 sources) History of prosthetic unicompartmental arthroplasty of [...] Translations: [Cough] Episodic Other nervous system disorders (18 sources) Polyneuropathy; Translations: [Polyneuropathy, unspecified] 06-28-2022 Chronic Other nervous system disorders (7 sources) Polyneuropathy, unspecified; Translations: [Unspecified hereditary and idiopathic peripheral neuropathy] Onset: 02-25-2025 Chronic Other non-epithelial cancer of skin (10 sources) Squamous cell carcinoma of skin; Translations: [...] conditions (not mental disorders or infectious disease) (12 sources) Patient encounter status; Translations: [Encounter for [...] Onset: 08-11-2016 08-11-2016 Episodic Superficial injury; contusion (12 sources) Abrasion of left little finger; Translations: [Abrasion of left little finger, initial encounter] 01-16-2024 Episodic Thyroid disorders (20 sources) Hypothyroidism; Translations: [Hypothyroidism, unspecified] Onset: 12-18-2024 03-15-2018 Chronic Unclassified (1 source) Postoperative physical examination; Translations: [Encounter for other specified surgical aftercare] Onset: 09-20-2016 09-20-2016 Viral infection (17 sources) Disease caused by 2019-nCoV; Translations: [COVID-19] [...] Test Name Value Interpretation Reference Range Facility Neurology Visit Reporton Neurology Visit Report [facility] [address] [place] [address], [address] [place] [address] OFFICE VISIT Date of Service: 02/25/25 MR#: [id number] Acct: [id number] Name: ARMU BARLOW Rep #: [id number] : 1965 Provider: BERNARDINO king Age/Sex: 59/M [place] [facility] [place]: Signed [facility] HPI Details: Interim History: Ramu returns for follow-up [...] continues to experience tingling in the feet now extending up to his knees bilaterally. He also endorses a burning sensation in his feet that becomes intolerable at times. This has worsened over the past year. He denied having weakness. He has a [...] alert and responds appropriately; speech is fluent; Romberg negative; decreased sensation to tactile stimuli in the bilateral lower extremities in stocking like distribution worse in the toes but extends to the knees; endorses intermittent burning sensation that is worse at night Heart: Regular rate and rhythm Lungs: Clear to ausculatation bilaterally Supplemental Info Lumbar x-rays (08/11/2016): FINDINGS: Normal lumbar lordosis.??? There is no substantial scoliosis.??? 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 There is incomplete ossification of the posterior arch of L5. Interarticularis defect not clearly demonstrated. No substantial change in alignment on flexion and extension. Otherwise, normal vertebral body height.??? Mild disc narrowing and spondylitic endplate changes. Normal bilateral sacral ala, sacroiliac joints, and visualized sacrum. Normal visualized soft tissue structures. IMPRESSION: Normal lordosis without scoliosis.??? 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 A definitive pars interarticularis defect is not clearly identified. ???Mild degenerative disc narrowing and spondylitic endplate changes. ???No substantial change in alignment on flexion and extension. Correction: Spondylolysis at L5 is present.??? 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 Alignment does not change on flexion and extension. These images were reviewed on 06/28/2022. GRISEL (03/19/2020): Negative Rheumatoid factor (03/19/2020): <10 (negative) EKG (09/15/2020): Normal sinus rhythm with sinus arrhythmia. Normal EKG. TSH, vitamin D, CMP (03/02/2022): Normal EMG/nerve conduction studies of the lower extremities (05/31/2022): Findings: Nerve conduction studies were performed in the right and left lower extremities. The right peroneal motor study recording the extensor digitorum brevis showed a normal amplitude, normal distal latency and normal conduction velocity. No conduction block or focal slowing was present across the fibular neck. The right tibial motor study recording the abductor hallucis brevis showed a normal amplitude, normal distal latency and normal conduction velocity. Right sural sensory response showed a normal a (more content not included)... Normal [facility] Absolute lymphocyte counton 02-06-2025 Lymphocytes Auto (Unsp spec) [#/Vol] 2.20 10*3/uL 0.83-4.51 [facility] Absolute neutrophil counton 02-06-2025 Neutrophils (Bld) [#/Vol] 2.5 10*3/uL 2.0-7.7 [facility] Automated lymphocyte count a s percentage of total leukocyteson 02-06-2025 Lymphocytes/100 WBC Auto (Unsp spec) 39.4 % 19-41 [facility] Basophil percentageon 2024 Basophils/100 WBC (Bld) 1.1 % High 0-1 [facility] Bilirubin directon 5 Bilirubin.direct [Mass/Vol] 0.18 mg/dL 0.00-0.30 [facility] Bilirubin, totalon 5 Bilirubin [Mass/Vol] 0.51 mg/dL 0.00-1.30 [facility] CBC W/Diff, Automatedon 06-0 4-2024 Absolute Lymph 2.20 X10 3/uL Normal 0.83-4.51 [facility] Comment on above: Performed By: #### L 100.0100, L101.9900, L501.6710, L501.1105, L500.3400 ####[facility] [address] [place], [address] Absolute Neut 2.5 X10 3/uL Normal 2.0-7.7 [facility] Comment on above: Performed By: #### L 100.0100, L101.9900, L501.6710, L501.1105, L500.3400 ####[facility] [address] [place], [address] Basophils/100 WBC (Bld) 1.1 % High 0-1 [facility] Comment on above: Performed By: #### L 100.0100, L101.9900, L501.6710, L501.1105, L500.3400 ####[facility] [address] [place], [address] Eosinophils/100 WBC (Bld) 3.6 % Normal 0-5 [facility] Comment on above: Performed By: #### L 100.0100, L101.9900, L501.6710, L501.1105, L500.3400 ####[facility] [address] [place], [address] Erythrocyte distribution width (RBC) [Ratio] 13.0 % Normal 11.6-14.6 [facility] Comment on above: Performed By: #### L 100.0100, L101.9900, L501.6710, L501.1105, L500.3400 ####[facility] [address] [place], [address] Hematocrit (Bld) [Volume fraction] 47.1 % Normal 40-54 [facility] Comment on above: Performed By: #### L 100.0100, L101.9900, L501.6710, L501.1105, L500.3400 ####[facility] [address] [place], [address] Hemoglobin (Bld) [Mass/Vol] 15.9 g/dL Normal 13.0-16.5 [facility] Comment on above: Performed By: #### L 100.0100, L101.9900, L501.6710, L501.1105, L500.3400 ####[facility] [address] [place], [address] IG% 0.500 Normal 0.0-0.9 [facility] Comment on above: Result Comment: IG% - Immature Granulocytes (promyelocytes, myelocytes and metamyelocytes) > 1% indicates that a LEFT SHIFT is Present. Performed By: #### L 100.0100, L101.9900, L501.6710, L501.1105, L500.3400 ####[facility] [address] [place], [address] Lymphocytes/100 WBC (Bld) 39.4 % Normal 19-41 [facility] Comment on above: Performed By: #### L 100.0100, L101.9900, L501.6710, L501.1105, L500.3400 ####[facility] [address] [place], [address] MCH (RBC) [Entitic mass] 30.5 pg Normal 27.0-32.0 [facility] Comment on above: Performed By: #### L 100.0100, L101.9900, L501.6710, L501.1105, L500.3400 ####[facility] [address] [place], [address] MCHC (RBC) [Mass/Vol] 33.8 g/dL Normal 32-36 [facility] Comment on above: Performed By: #### L 100.0100, L101.9900, L501.6710, L501.1105, L500.3400 ####[facility] [address] [place], [address] MCV (RBC) [Entitic vol] 90.4 fL Normal 80-94 [facility] Comment on above: Performed By: #### L 100.0100, L101.9900, L501.6710, L501.1105, L500.3400 ####[facility] [address] [place], [address] Monocytes/100 WBC (Bld) 10.6 % High 0-10 [facility] Comment on above: Performed By: #### L 100.0100, L101.9900, L501.6710, L501.1105, L500.3400 ####[facility] [address] [place], [address] Neutrophils/100 WBC (Bld) 44.8 % Low 47-70 [facility] Comment on above: Performed By: #### L 100.0100, L101.9900, L501.6710, L501.1105, L500.3400 ####[facility] [address] [place], [address] Nucleated RBC (Bld) [#/Vol] 0 10*3/uL Normal 0-5 [facility] Comment on above: Performed By: #### L 100.0100, L101.9900, L501.6710, L501.1105, L500.3400 ####[facility] [address] [place], [address] Platelet mean volume (Bld) [Entitic vol] 9.6 fL Normal 6.2-12.0 [facility] Comment on above: Performed By: #### L 100.0100, L101.9900, L501.6710, L501.1105, L500.3400 ####[facility] [address] [place], [address] Platelets (Bld) [#/Vol] 321 10*3/uL Normal 150-450 [facility] Comment on above: Performed By: #### L 100.0100, L101.9900, L501.6710, L501.1105, L500.3400 ####[facility] [address] [place], [address] RBC (Bld) [#/Vol] 5.21 10*6/uL Normal 4.6-6.2 [facility] Comment on above: Performed By: #### L 100.0100, L101.9900, L501.6710, L501.1105, L500.3400 ####[facility] [address] [place], [address] RDW SD 42.9 fl Normal 35.1-43.9 [facility] Comment on above: Performed By: #### L 100.0100, L101.9900, L501.6710, L501.1105, L500.3400 ####[facility] [address] [place], [address] WBC (Bld) [#/Vol] 5.6 10*3/uL Normal 4.4-11.0 [facility] Comment on above: Performed By: #### L 100.0100, L101.9900, L501.6710, L501.1105, L500.3400 ####[facility] [address] [place], [address] CRPon 02-06-2025 C-REACTIVE PROT 3.12 mg/L High 0.0-3.0 [facility] Comment on above: Performed By: #### L 100.0100, L101.9900, L501.6710, L501.1105, L500.3400 ####[facility] [address] [place], [place], [address] Eosinophil percentageon 06- Eosinophils/100 WBC (Bld) 3.6 % 0-5 [facility] Erythrocyte Sed Rateon 02-06 SED RATE 7 mm/hr Normal 0-20 [facility] Comment on above: Performed By: #### L 100.0100, L101.9900, L501.6710, L501.1105, L500.3400 ####[facility] [address] [place], [place], [address] Erythrocyte distribution wid th ratioon 02-06-2025 Erythrocyte distribution width (RBC) [Ratio] 13.0 % 11.6-14.6 [facility] Erythrocyte distribution wid th standard deviationon 02-06-2025 Erythrocyte distribution width (RBC) [Ratio] 42.9 fl 35.1-43.9 [facility] Erythrocyte sedimentation ra sonya 02-06-2025 ESR (Bld) [Velocity] 7 mm/h 0-20 [facility] Glomerular filtration rate ( GFR) estimation/1.73 sq m using serum, plasma, or whole bon 02-06-2025 GFR/1.73 sq M.predicted among non-blacks MDRD (S/P/Bld) [Vol rate/Area] 96 mL/min/{1.73_m2} >60 [facility] Comment on above: mL/min/1.73m2 CKD-EP I Creatinine Equation (2020) Hematocrit Auto (Bld) [Volum e fraction]on 02-06-2025 Hematocrit (Bld) [Volume fraction] 47.1 % 40-54 [facility] Hemoglobin measurementon Hemoglobin (Bld) [Mass/Vol] 15.9 g/dL 13.0-16.5 [facility] Immature granulocytes/100 WB C Auto (Bld)on 02-06-2025 Immature granulocytes/100 WBC (Bld) 0.500 % 0.0-0.9 [facility] Comment on above: IG% - Immature Granu locytes (promyelocytes, myelocytes and metamyelocytes) > 1% indicates that a LEFT SHIFT is Present. Laboratory - Chemistry and C hemistry - challengeon 02-06-2025 AST [Catalytic activity/Vol] 27 U/L <38 [facility] Liver Profileon 02-06-2025 Albumin [Mass/Vol] 4.0 g/dL Normal 3.4-4.8 [facility] Comment on above: Performed By: #### L 100.0100, L101.9900, L501.6710, L501.1105, L500.3400 ####[facility] [address] [place], [address] ALK PHOS 87 U/L Normal 40-129 [facility] Comment on above: Performed By: #### L 100.0100, L101.9900, L501.6710, L501.1105, L500.3400 ####[facility] [address] [place], [address] ALT [Catalytic activity/Vol] 20 U/L Normal <=46 [facility] Comment on above: Performed By: #### L 100.0100, L101.9900, L501.6710, L501.1105, L500.3400 ####[facility] [address] [place], [address] AST [Catalytic activity/Vol] 27 U/L Normal <=37 [facility] Comment on above: Performed By: #### L 100.0100, L101.9900, L501.6710, L501.1105, L500.3400 ####[facility] [address] [place], [address] Bilirubin [Mass/Vol] 0.51 mg/dL Normal 0.00-1.30 [facility] Comment on above: Performed By: #### L 100.0100, L101.9900, L501.6710, L501.1105, L500.3400 ####[facility] [address] [place], [address] Bilirubin.direct [Mass/Vol] 0.18 mg/dL Normal 0.00-0.30 [facility] Comment on above: Performed By: #### L 100.0100, L101.9900, L501.6710, L501.1105, L500.3400 ####[facility] [address] [place], [address] Globulin (S) [Mass/Vol] 2.6 g/dL Normal 2.2-4.2 [facility] Comment on above: Performed By: #### L 100.0100, L101.9900, L501.6710, L501.1105, L500.3400 ####[facility] [address] [place], [address] T PROT 6.6 g/dL Normal 5.9-8.4 [facility] Comment on above: Performed By: #### L 100.0100, L101.9900, L501.6710, L501.1105, L500.3400 ####[facility] [address] [place], [address] MCV (mean corpuscular volume ) determinationon 02-06-2025 MCV (RBC) [Entitic vol] 90.4 fL 80-94 [facility] Mean corpuscular hemoglobin (MCH) determinationon 02-06-2025 MCH (RBC) [Entitic mass] 30.5 pg 27.0-32.0 [facility] Mean corpuscular hemoglobin concentration (MCHC) determinationon 02-06-2025 MCHC (RBC) [Mass/Vol] 33.8 g/dL 32-36 [facility] Mean platelet volume determi nationon 02-06-2025 Platelet mean volume (Bld) [Entitic vol] 9.6 fL 6.2-12.0 [facility] Monocyte percentageon 2024 Monocytes/100 WBC (Bld) 10.6 % High 0-10 [facility] Neutrophil percentageon Neutrophils/100 WBC (Bld) 44.8 % Low 47-70 [facility] Nucleated red blood cell per centageon 02-06-2025 Nucleated RBC/100 WBC (Bld) [Ratio] 0 % 0-5 [facility] Platelet counton 02-06-2025 Platelets (Bld) [#/Vol] 321 10*3/uL 150-450 [facility] RBC Auto (Bld) [#/Vol]on RBC (Bld) [#/Vol] 5.21 10*6/uL 4.6-6.2 [facility] Serum Creatinine AND GFRon 0 02-06-2025 Creatinine [Mass/Vol] 0.92 mg/dL Normal 0.70-1.20 [facility] Comment on above: Performed By: #### L 100.0100, L101.9900, L501.6710, L501.1105, L500.3400 ####[facility] [address] [place], [place], [address] GFR/1.73 sq M.predicted among non-blacks MDRD (S/P/Bld) [Vol rate/Area] 96 mL/min/{1.73_m2} Normal >60 [facility] Comment on above: Result Comment: mL/m in/1.73m2 CKD-EPI Creatinine Equation (2020) Performed By: #### L 100.0100, L101.9900, L501.6710, L501.1105, L500.3400 ####[facility] [address] [place], [place], [address] Serum creatinine measurement (mass/volume)on 02-06-2025 Creatinine [Mass/Vol] 0.92 mg/dL 0.70-1.20 [facility] Serum globulin measurementon 02-06-2025 Globulin (S) [Mass/Vol] 2.6 g/dL 2.2-4.2 [facility] Serum or plasma C reactive p rotein measurement (mass/volume)on 02-06-2025 CRP [Mass/Vol] 3.12 mg/L High 0.0-3.0 [facility] Serum or plasma alanine oleary otransferase (ALT) measurementon 02-06-2025 ALT [Catalytic activity/Vol] 20 U/L <47 [facility] Serum or plasma albumin kendra urement (mass/volume)on 02-06-2025 Albumin [Mass/Vol] 4.0 g/dL 3.4-4.8 [facility] Serum or plasma alkaline branden sphatase measurementon 02-06-2025 ALP [Catalytic activity/Vol] 87 U/L 40-129 [facility] Total proteinon 02-06-2025 Protein [Mass/Vol] 6.6 g/dL 5.9-8.4 [facility] White blood cell (WBC) count on 02-06-2025 WBC (Bld) [#/Vol] 5.6 10*3/uL 4.4-11.0 [facility] Surgery Specimen Level Tosha 01-07-2025 Surgery Specimen Level IV Patient Age/Sex Location Account Attending Physician RAMU BARLOW/M LABSSEEMA [id number] [facility] Specimen: [id number] Received: 01/07/25 Status: KIARA Cho Num: [id number] Spec Type: Lesion Subm Dr: BENOIT Kap[place]ia [...] the specimen is submitted entirely in A1. [facility] 01-08-2025 CPT:61563 Patient Age/Sex Location Account Attending Physician RAMU BARLOW 59/M LABSPEC [id number] [facility] [place] Signed (signature on file) Dr. Margarita Sethi MD 01/17/25 1251 Normal [facility] Comment on above: Performed By: #### L 500.2500, L100.0100, L501.9520, L506.0400, L500.4100, L501.05423 #### [facility] [address] [place], [address] Cardiovascular stress test r eportOrdered By: Wilmer Choi on 12-26-2024 Study report [facility] [address] [place] [address] MR#: [id number] Acct: [id number] Name: RAMU BARLOW Rep #: [id number] : 1965 59 From: Wilmer Choi MD Primary Care: Dr. Ash Mcpherson MD Status : REG I Referring Dr: Ash Mcpherson MD Sex: M [...] a high workload Preserved ejection fraction. 12/26/24 171 Date _ Wilmer Choi MD CC: Dr. Ash Mcpherson MD ~ Date Dictated: 12/26/241658 Date Transcribed: 12/26/241658 Electroencephalographic Technician: CO Signed [facility] Work Phone: Stress Reporton 12-26-2024 Stress Report [facility] [address] [place] [address] MR#: [id number] Acct: [id number] Name: RAMU BARLOW Rep #: [id number] : 1965 59 From: Wilmer Choi MD [...] a high workload Preserved ejection fraction. 12/26/24 171 Date Wilmer Choi MD CC: Dr. Ash Mcpherson MD Date Dictated: 12/26/241658 Date Transcribed: 12/26/241658 Electroencephalographic Technician: CO Signed Normal [facility] Laboratory - Microbiology an d Antimicrobial susceptibilityOrdered By: Spencer Brush on 12-17-2024 SARS-CoV-2 (COVID-19) RNA ANGÉLICA+probe Ql (Unsp spec) Not detected [facility] No Panel InformationOrdered By: Spencer Brush on 12-17-2024 POC Nasal Swab Influenza A,B Not detected [facility] POC Nasal Swab RSV Detected [facility] Office Visit Reporton 2024 Office Visit Report [facility] [place] [address] OFFICE VISIT Date of Service: 12/17/24 MR#: [id number] Acct: [id number] Patient: RAMU BARLOW Rep #: [id number] : 1965 Provider: BENOIT Edouard Age/Sex: 59/M Location[place] [facility] Status: Signed Intake Vital Signs 02/09/24 15:43 Height 5 ft 10 in 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/ H Chief Complaint: spot on left side neck, [...] Orders POC Cepheid Covid, FluAB, RSV Today 12/17/24 0814 Date Spencer FARIAS Cosigner Signature: Date (if applicable) CC: Normal [facility] Visit Reporton 0 12-17-2024 Urgent Care Visit Report [facility] [address], [address] [place] [address] OFFICE VISIT Date of Service: 12/17/24 MR#: [id number] Acct: [id number] Name: RAMU BARLOW Rep #: [id number] : 1965 Provider: BENOIT Edouard Age/Sex: 59/M Location[place] [facility] Status: Signed Intake Vital Signs 02/09/24 15:43 [...] then yesterday he started having sinus presssure. [facility] Medical History (Updated 01/16/24 @ 12:30 by Spencer FARIAS, BENOIT) Abrasion of left little finger Contusion of [...] physical activity do you participate in: none danny/amish: Pentecostal seatbelt use: always additional social history: pt [...] recently dx???d w/ similar URI complaints. No xdkl-nks-jpujocd products taken to assist. Nonsmoker. No other associated symptoms and no other alleviating/aggravating factors. ROS Const Constitutional: No other (As [...] in offi (more content not included)... Normal [facility] Absolute lymphocyte countOrd ered By: Ash Mcpherson on 12-12-2024 Lymphocytes Auto (Unsp spec) [#/Vol] 2.48 10*3/uL 0.83-4.51 [facility] Absolute neutrophil countOrd ered By: Ash Mcpherson on 12-12-2024 Neutrophils (Bld) [#/Vol] 3.7 10*3/uL 2.0-7.7 [facility] Anion gap in Serum or Plasma Ordered By: Ash Mcpherson on 12-12-2024 Anion gap [Moles/Vol] 11 mmol/L 5- [facility] Automated lymphocyte count a s percentage of total leukocytesOrdered By: Ash Mcpherson on 12-12-2024 Lymphocytes/100 WBC Auto (Unsp spec) 34.1 % - [facility] BUN/creatinine ratioOrdered By: Ash Mcpherson on 12-12-2024 Urea nitrogen/Creatinine [Mass ratio] 15.7 mg/mg 10- [facility] Basic Metabolic Profile (BMP )on 12-12-2024 BUN/CRE 15.7 RATIO Normal - [facility] Comment on above: Performed By: #### L 500.2500, L100.0100, L501.9520, L506.0400, L500.4100, L501.98314 #### [facility] [address] [place], [address] Calcium [Mass/Vol] 9.0 mg/dL Normal 7.6-11.0 [facility] Comment on above: Performed By: #### L 500.2500, L100.0100, L501.9520, L506.0400, L500.4100, L501.78645 #### [facility] [address] [place], [address] Chloride [Moles/Vol] 103 mmol/L Normal 98-108 [facility] Comment on above: Performed By: #### L 500.2500, L100.0100, L501.9520, L506.0400, L500.4100, L501.53011 #### [facility] [address] [place], [address] CO2 [Moles/Vol] 24.9 mmol/L Normal 21.0-32.0 [facility] Comment on above: Performed By: #### L 500.2500, L100.0100, L501.9520, L506.0400, L500.4100, L501.12739 #### [facility] [address] [place], [place], [phone] ([phone] Creatinine [Mass/Vol] 1.03 mg/dL Normal 0.70-1.20 [facility] Comment on above: Performed By: #### L 500.2500, L100.0100, L501.9520, L506.0400, L500.4100, L501.46322 #### [facility] [address] [place], [place], [phone] (041 GAP 11 Normal 5-15 [facility] Comment on above: Performed By: #### L 500.2500, L100.0100, L501.9520, L506.0400, L500.4100, L501.96607 #### [facility] [address] [place], [address] GFR/1.73 sq M.predicted among non-blacks MDRD (S/P/Bld) [Vol rate/Area] 83 mL/min/{1.73_m2} Normal >60 [facility] Comment on above: Result Comment: mL/m in/1.73m2 CKD-EPI Creatinine Equation (2020) Performed By: #### L 500.2500, L100.0100, L501.9520, L506.0400, L500.4100, L501.40751 #### [facility] [address] [place], [address] Glucose [Mass/Vol] 93 mg/dL Normal 70-99 [facility] Comment on above: Performed By: #### L 500.2500, L100.0100, L501.9520, L506.0400, L500.4100, L501.53104 #### [facility] [address] [place], [address] Potassium [Moles/Vol] 4.1 mmol/L Normal 3.3-5.1 [facility] Comment on above: Performed By: #### L 500.2500, L100.0100, L501.9520, L506.0400, L500.4100, L501.74515 #### [facility] [address] [place], [address] Sodium [Moles/Vol] 138 mmol/L Normal 133-145 [facility] Comment on above: Performed By: #### L 500.2500, L100.0100, L501.9520, L506.0400, L500.4100, L501.79500 #### [facility] [address] [place], [address] Urea nitrogen [Mass/Vol] 16 mg/dL Normal 4-19 [facility] Comment on above: Performed By: #### L 500.2500, L100.0100, L501.9520, L506.0400, L500.4100, L501.91576 #### [facility] [address] [place], [address] Basophil percentageOrdered B y: Ash Mcpherson on 12-12-2024 Basophils/100 WBC (Bld) 1.0 % 0-1 [facility] CBC W/Diff, Automatedon 04-0 Absolute Lymph 2.48 X10 3/uL Normal 0.83-4.51 [facility] Comment on above: Performed By: #### L 500.2500, L100.0100, L501.9520, L506.0400, L500.4100, L501.69957 #### [facility] [address] [place], [address] Absolute Neut 3.7 X10 3/uL Normal 2.0-7.7 [facility] Comment on above: Performed By: #### L 500.2500, L100.0100, L501.9520, L506.0400, L500.4100, L501.25793 #### [facility] [address] [place], [address] Basophils/100 WBC (Bld) 1.0 % Normal 0-1 [facility] Comment on above: Performed By: #### L 500.2500, L100.0100, L501.9520, L506.0400, L500.4100, L501.54440 #### [facility] [address] [place], [address] Eosinophils/100 WBC (Bld) 2.1 % Normal 0-5 [facility] Comment on above: Performed By: #### L 500.2500, L100.0100, L501.9520, L506.0400, L500.4100, L501.79570 #### [facility] [address] [place], [address] Erythrocyte distribution width (RBC) [Ratio] 12.7 % Normal 11.6-14.6 [facility] Comment on above: Performed By: #### L 500.2500, L100.0100, L501.9520, L506.0400, L500.4100, L501.37376 #### [facility] [address] [place], [address] Hematocrit (Bld) [Volume fraction] 48.3 % Normal 40-54 [facility] Comment on above: Performed By: #### L 500.2500, L100.0100, L501.9520, L506.0400, L500.4100, L501.55973 #### [facility] [address] [place], [address] Hemoglobin (Bld) [Mass/Vol] 16.5 g/dL Normal 13.0-16.5 [facility] Comment on above: Performed By: #### L 500.2500, L100.0100, L501.9520, L506.0400, L500.4100, L501.31377 #### [facility] [address] [place], [address] IG% 0.700 Normal 0.0-0.9 [facility] Comment on above: Result Comment: IG% - Immature Granulocytes (promyelocytes, myelocytes and metamyelocytes) > 1% indicates that a LEFT SHIFT is Present. Performed By: #### L 500.2500, L100.0100, L501.9520, L506.0400, L500.4100, L501.75243 #### [facility] [address] [place], [address] Lymphocytes/100 WBC (Bld) 34.1 % Normal 19-41 [facility] Comment on above: Performed By: #### L 500.2500, L100.0100, L501.9520, L506.0400, L500.4100, L501.18815 #### [facility] [address] [place], [address] MCH (RBC) [Entitic mass] 30.7 pg Normal 27.0-32.0 [facility] Comment on above: Performed By: #### L 500.2500, L100.0100, L501.9520, L506.0400, L500.4100, L501.24873 #### [facility] [address] [place], [address] MCHC (RBC) [Mass/Vol] 34.2 g/dL Normal 32-36 [facility] Comment on above: Performed By: #### L 500.2500, L100.0100, L501.9520, L506.0400, L500.4100, L501.59585 #### [facility] [address] [place], [address] MCV (RBC) [Entitic vol] 89.8 fL Normal 80-94 [facility] Comment on above: Performed By: #### L 500.2500, L100.0100, L501.9520, L506.0400, L500.4100, L501.08967 #### [facility] [address] [place], [address] Monocytes/100 WBC (Bld) 10.7 % High 0-10 [facility] Comment on above: Performed By: #### L 500.2500, L100.0100, L501.9520, L506.0400, L500.4100, L501.04430 #### [facility] [address] [place], [address] Neutrophils/100 WBC (Bld) 51.4 % Normal 47-70 [facility] Comment on above: Performed By: #### L 500.2500, L100.0100, L501.9520, L506.0400, L500.4100, L501.68746 #### [facility] [address] [place], [address] Nucleated RBC (Bld) [#/Vol] 0 10*3/uL Normal 0-5 [facility] Comment on above: Performed By: #### L 500.2500, L100.0100, L501.9520, L506.0400, L500.4100, L501.24636 #### [facility] [address] [place], [address] Platelet mean volume (Bld) [Entitic vol] 9.8 fL Normal 6.2-12.0 [facility] Comment on above: Performed By: #### L 500.2500, L100.0100, L501.9520, L506.0400, L500.4100, L501.72899 #### [facility] [address] [place], [address] Platelets (Bld) [#/Vol] 346 10*3/uL Normal 150-450 [facility] Comment on above: Performed By: #### L 500.2500, L100.0100, L501.9520, L506.0400, L500.4100, L501.17717 #### [facility] [address] [place], [address] RBC (Bld) [#/Vol] 5.38 10*6/uL Normal 4.6-6.2 [facility] Comment on above: Performed By: #### L 500.2500, L100.0100, L501.9520, L506.0400, L500.4100, L501.79226 #### [facility] [address] [place], [address] RDW SD 41.6 fl Normal 35.1-43.9 [facility] Comment on above: Performed By: #### L 500.2500, L100.0100, L501.9520, L506.0400, L500.4100, L501.52478 #### [facility] [address] [place], [address] WBC (Bld) [#/Vol] 7.3 10*3/uL Normal 4.4-11.0 [facility] Comment on above: Performed By: #### L 500.2500, L100.0100, L501.9520, L506.0400, L500.4100, L501.25257 #### [facility] [address] [place], [address] Calculated very low density lipoprotein (VLDL) cholesterol measurementOrdered By: Ash Mcpherson on 12-12-2024 Calculated very low density lipoprotein (VLDL) cholesterol measurement 34 mg/dL 5-40 [facility] VLDL Cholesterol 34 mg/dL 5-40 [facility] Carbon dioxide, total [Moles /volume] in Central venous bloodOrdered By: Ash Mcpherson on 12-12-2024 CO2 [Moles/Vol] 24.9 mmol/L 21.0-32.0 [facility] Chloride assayOrdered By: Benoit Mcpherson on 12-12-2024 Chloride [Moles/Vol] 103 mmol/L 98-108 [facility] Eosinophil percentageOrdered By: Ash Mcpherson on 12-12-2024 Eosinophils/100 WBC (Bld) 2.1 % 0-5 [facility] Erythrocyte distribution wid th (RBC) [Ratio]Ordered By: Ash Mcpherson on 12-12-2024 Erythrocyte distribution width (RBC) [Entitic vol] 41.6 fL 35.1-43.9 [facility] Erythrocyte distribution wid th ratioOrdered By: Ash Mcpherson on 12-12-2024 Erythrocyte distribution width (RBC) [Ratio] 12.7 % 11.6-14.6 [facility] Erythrocyte distribution wid th standard deviationOrdered By: Ash Mcpherson on 12-12-2024 Erythrocyte distribution width (RBC) [Ratio] 41.6 fl 35.1-43.9 [facility] Free T3on 12-12-2024 Free T3 [Mass/Vol] 2.9 pg/mL Normal 2.18-3.98 [facility] Comment on above: Order Comment: N Performed By: #### L 500.2500, L100.0100, L501.9520, L506.0400, L500.4100, L501.29705 #### [facility] [place], [address] Free D6Qanoiuw By: Ash aguirre on 12-12-2024 Free T3 [Mass/Vol] 2.9 pg/mL 2.18-3.98 [facility] Free Triiodothyronine (T3) pg/dL 2.9 pg/mL 2.18-3.98 [facility] GFR/1.73 sq M.predicted nael g non-blacks MDRD (S/P/Bld) [Vol rate/Area]Ordered By: Ash Mcpherson on 12-12-2024 Estimated GFR (MDRD) Non-Af Amer 83 >60 [facility] Comment on above: mL/min/1.73m2 CKD-EP I Creatinine Equation (2020) Glomerular filtration rate ( GFR) estimation/1.73 sq m using serum, plasma, or whole bOrdered By: Ash Mcpherson on 12-12-2024 GFR/1.73 sq M.predicted among non-blacks MDRD (S/P/Bld) [Vol rate/Area] 83 mL/min/{1.73_m2} >60 [facility] Comment on above: mL/min/1.73m2 CKD-EP I Creatinine Equation (2020) Hematocrit Auto (Bld) [Volum e fraction]Ordered By: Ash Mcpherson on 12-12-2024 Hematocrit (Bld) [Volume fraction] 48.3 % 40-54 [facility] Hemoglobin measurementOrdere d By: Ash Mcpherson on 12-12-2024 Hemoglobin (Bld) [Mass/Vol] 16.5 g/dL 13.0-16.5 [facility] Immature granulocytes/100 WB C Auto (Bld)Ordered By: Ash Mcpherson on 12-12-2024 Immature granulocytes/100 WBC (Bld) 0.700 % 0.0-0.9 [facility] Comment on above: IG% - Immature Granu locytes (promyelocytes, myelocytes and metamyelocytes) > 1% indicates that a LEFT SHIFT is Present. LDL calc ser/plasOrdered By: Ash Mcpherson on 12-12-2024 Cholesterol in LDL [Mass/Vol] 109 mg/dL [facility] Comment on above: Ahacyrlrdm=795-086 m g/dL & Higher Ncyz=067 mg/dL or greater LDL Cholesterol, Calculated 109 mg/dL [facility] Comment on above: Srbplkaske=759-649 m g/dL & Higher Hvwp=480 mg/dL or greater Lipid Profileon 12-12-2024 CHOL:HDL 3.98 Normal [facility] Comment on above: Performed By: #### L 500.2500, L100.0100, L501.9520, L506.0400, L500.4100, L501.92886 #### [facility] [address] [place], [address] Cholesterol [Mass/Vol] 191 mg/dL Normal <=200 [facility] Comment on above: Result Comment: Chol esterol level, Desirable <200 mg/dL Borderline high cholesterol 200-239 mg/dL High cholesterol >=240 mg/dL Recommendations of the NCEP Adult Treatment Panel for the following risk-cutoff thresholds for the [place] population. Performed By: #### L 500.2500, L100.0100, L501.9520, L506.0400, L500.4100, L501.43219 #### [facility] [address] [place], [address] Cholesterol in HDL [Mass/Vol] 48 mg/dL Normal [facility] Comment on above: Result Comment: [place] Delia onal Cholesterol Education Program (NCEP) guidelines: <40 mg/dL: Low HDL-cholesterol (major risk factor for CHD) >= 60 mg/dL: High HDL-cholesterol (negative risk factor for CHD) HDL-cholesterol is affected by a number of factors, e.g. smoking, exercise, hormones, sex and age. Performed By: #### L 500.2500, L100.0100, L501.9520, L506.0400, L500.4100, L501.10239 #### [facility] [address] [place], [address] Cholesterol in LDL [Mass/Vol] 109 mg/dL Normal [facility] Comment on above: Result Comment: Bord bfvagr=328-623 mg/dL Higher Yzgf=026 mg/dL or greater Performed By: #### L 500.2500, L100.0100, L501.9520, L506.0400, L500.4100, L501.67187 #### [facility] [address] [place], [address] Cholesterol in VLDL [Mass/Vol] 34 mg/dL Normal 5-40 [facility] Comment on above: Performed By: #### L 500.2500, L100.0100, L501.9520, L506.0400, L500.4100, L501.33695 #### [facility] [address] [place], [address] Triglyceride [Mass/Vol] 171 mg/dL Normal [facility] Comment on above: Result Comment: The drugs N-Acetylcysteine and Metamizole may falsely depress this assay. Normal range: <150 mg/dL Borderline High: 150-199 mg/dL High: 200-499 mg/dL Very High: >500 mg/dL Performed By: #### L 500.2500, L100.0100, L501.9520, L506.0400, L500.4100, L501.43054 #### [facility] [address] [place], [place], [address] Lymphocytes Auto (Unsp spec) [#/Vol]Ordered By: Ash Mcpherson on 12-12-2024 Lymphocytes (Bld) [#/Vol] 2.48 10*3/uL 0.83-4.51 [facility] Lymphocytes/100 WBC Auto (Un sp spec)Ordered By: Ash Mcpherson on 12-12-2024 Lymphocytes/100 WBC (Bld) 34.1 % 19-41 [facility] MCV (mean corpuscular volume ) determinationOrdered By: Ash Mcpherson on 12-12-2024 MCV (RBC) [Entitic vol] 89.8 fL 80-94 [facility] Mean corpuscular hemoglobin (MCH) determinationOrdered By: sAh Mcpherson on 12-12-2024 MCH (RBC) [Entitic mass] 30.7 pg 27.0-32.0 [facility] Mean corpuscular hemoglobin concentration (MCHC) determinationOrdered By: Ash Mcpherson on 12-12-2024 MCHC (RBC) [Mass/Vol] 34.2 g/dL 32-36 [facility] Mean platelet volume determi nationOrdered By: Ash Mcpherson on 12-12-2024 Platelet mean volume (Bld) [Entitic vol] 9.8 fL 6.2-12.0 [facility] Monocyte percentageOrdered B y: Ash Mcpherson on 12-12-2024 Monocytes/100 WBC (Bld) 10.7 % High 0-10 [facility] Neutrophil percentageOrdered By: Ash Mcpherson on 12-12-2024 Neutrophils/100 WBC (Bld) 51.4 % 47-70 [facility] Nucleated red blood cell per centageOrdered By: Ash Mcpherson on 12-12-2024 Nucleated RBC/100 WBC (Bld) [Ratio] 0 % 0-5 [facility] Platelet countOrdered By: Benoit Mcpherson on 12-12-2024 Platelets (Bld) [#/Vol] 346 10*3/uL 150-450 [facility] Potassium (Unsp spec) [Mass/ Vol]Ordered By: Ash Mcpherson on 12-12-2024 Potassium [Moles/Vol] 4.1 mmol/L 3.3-5.1 [facility] Potassium measurement (mass/ volume)Ordered By: Ash Mcpherson on 12-12-2024 Potassium (Unsp spec) [Mass/Vol] 4.1 mmol/L 3.3-5.1 [facility] RBC Auto (Bld) [#/Vol]Ordere d By: Ash Mcpherson on 12-12-2024 RBC (Bld) [#/Vol] 5.38 10*6/uL 4.6-6.2 [facility] Screening total cholesterol/ high density lipoprotein (HDL) cholesterol ratioOrdered By: Ash Mcpherson on 12-12-2024 Cholesterol.total/Richa sterol in HDL [Mass ratio] 3.98 {ratio} [facility] Serum creatinine measurement (mass/volume)Ordered By: Ash Mcpherson on 12-12-2024 Creatinine [Mass/Vol] 1.03 mg/dL 0.70-1.20 [facility] Serum glucose measurement (m ass/volume)Ordered By: Ash Mcpherson on 12-12-2024 Glucose [Mass/Vol] 93 mg/dL 70-99 [facility] Serum or plasma calcium kendra urement (mass/volume)Ordered By: Ash Mcpherson on 12-12-2024 Calcium [Mass/Vol] 9.0 mg/dL 7.6-11.0 [facility] Serum or plasma cholesterol in HDL measurement (mass/volume)Ordered By: Ash Mcpherson on 12-12-2024 Cholesterol in HDL [Mass/Vol] 48 mg/dL >40 [facility] Comment on above: National Cholesterol Education Program (NCEP) guidelines:<40 mg/dL: Low HDL-cholesterol (major risk factor for CHD)>= 60 mg/dL: High HDL-cholesterol (negative risk factor for CHD)HDL-cholesterol is affected by a number of factors, e.g. smoking, exercise, hormones, sex and age. Serum or plasma cholesterol measurement (mass/volume)Ordered By: Ash Mcpherson on 12-12-2024 Cholesterol [Mass/Vol] 191 mg/dL <201 [facility] Comment on above: Cholesterol level, D esirable <200 mg/dLBorderline high cholesterol 200-239 mg/dLHigh cholesterol >=240 mg/dLRecommendations of the NCEP Adult Treatment Panel for the following risk-cutoff thresholds for the [place] population. Serum or plasma urea nitroge n measurement (mass/volume)Ordered By: Ash Mcpherson on 12-12-2024 Urea nitrogen [Mass/Vol] 16 mg/dL 4-19 [facility] Sodium levelOrdered By: Ash Mcpherson on 12-12-2024 Sodium [Moles/Vol] 138 mmol/L 133-145 [facility] T4 Free Directon 12-12-2024 T4 FREE DIRECT 1.60 ng/dL High 0.76-1.46 [facility] Comment on above: Order Comment: N Performed By: #### L 500.2500, L100.0100, L501.9520, L506.0400, L500.4100, L501.47128 #### [facility] [address] [place], [address] T4 freeOrdered By: Ash aguirre on 12-12-2024 Free T4 [Mass/Vol] 1.60 ng/dL High 0.76-1.46 [facility] TSH DL <= 0.005 mIU/L QnOrde red By: Ash Mcpherson on 12-12-2024 Thyroid Stimulating Hormone (TSH) 2.000 uIU/mL 0.300-4.20 0 [facility] TSH Qn 2.000 uIU/mL 0.300-4.20 0 [facility] Thyroid Stim Hormone (TSH)on 12-12-2024 TSH 2.000 uIU/mL Normal 0.300-4.20 0 [facility] Comment on above: Performed By: #### L 500.2500, L100.0100, L501.9520, L506.0400, L500.4100, L501.73368 #### [facility] [place], [address] Triglycerides measurementOrd ered By: Ash Mcpherson on 12-12-2024 Triglyceride [Mass/Vol] 171 mg/dL <199 [facility] Comment on above: The drugs N-Acetylcy steine and Metamizole may falsely depress this assay. Normal range: <150 mg/dLBorderline High: 150-199 mg/dLHigh: 200-499 mg/dLVery High: >500 mg/dL White blood cell (WBC) count Ordered By: Ash Mcpherson on 12-12-2024 WBC (Bld) [#/Vol] 7.3 10*3/uL 4.4-11.0 [facility] Absolute lymphocyte counton 11-07-2024 Lymphocytes Auto (Unsp spec) [#/Vol] 2.36 10*3/uL 0.83-4.51 [facility] Absolute neutrophil counton 11-07-2024 Neutrophils (Bld) [#/Vol] 4.1 10*3/uL 2.0-7.7 [facility] Automated lymphocyte count a s percentage of total leukocyteson 11-07-2024 Lymphocytes/100 WBC Auto (Unsp spec) 32.2 % 19-41 [facility] Basophil percentageon 2024 Basophils/100 WBC (Bld) 1.0 % 0-1 [facility] Bilirubin directon Bilirubin.direct [Mass/Vol] 0.17 mg/dL 0.00-0.30 [facility] Comment on above: Hemolysis present, R esults could be affected. Bilirubin, totalon 5 Bilirubin [Mass/Vol] 0.49 mg/dL 0.00-1.30 [facility] CBC W/Diff, Automatedon 03-0 5-2024 Absolute Lymph 2.36 X10 3/uL Normal 0.83-4.51 [facility] Comment on above: Performed By: #### L 101.9900, L501.6710, L100.0100, L500.3400, L501.1105 ####[facility] [address] [place], [address] Absolute Neut 4.1 X10 3/uL Normal 2.0-7.7 [facility] Comment on above: Performed By: #### L 101.9900, L501.6710, L100.0100, L500.3400, L501.1105 ####[facility] [address] [place], [address] Basophils/100 WBC (Bld) 1.0 % Normal 0-1 [facility] Comment on above: Performed By: #### L 101.9900, L501.6710, L100.0100, L500.3400, L501.1105 ####[facility] [address] [place], [address] Eosinophils/100 WBC (Bld) 1.8 % Normal 0-5 [facility] Comment on above: Performed By: #### L 101.9900, L501.6710, L100.0100, L500.3400, L501.1105 ####[facility] [address] [place], [address] Erythrocyte distribution width (RBC) [Ratio] 13.1 % Normal 11.6-14.6 [facility] Comment on above: Performed By: #### L 101.9900, L501.6710, L100.0100, L500.3400, L501.1105 ####[facility] [address] [place], [address] Hematocrit (Bld) [Volume fraction] 47.3 % Normal 40-54 [facility] Comment on above: Performed By: #### L 101.9900, L501.6710, L100.0100, L500.3400, L501.1105 ####[facility] [address] [place], [address] Hemoglobin (Bld) [Mass/Vol] 16.0 g/dL Normal 13.0-16.5 [facility] Comment on above: Performed By: #### L 101.9900, L501.6710, L100.0100, L500.3400, L501.1105 ####[facility] [address] [place], [address] IG% 0.500 Normal 0.0-0.9 [facility] Comment on above: Result Comment: IG% - Immature Granulocytes (promyelocytes, myelocytes and metamyelocytes) > 1% indicates that a LEFT SHIFT is Present. Performed By: #### L 101.9900, L501.6710, L100.0100, L500.3400, L501.1105 ####[facility] [address] [place], [address] Lymphocytes/100 WBC (Bld) 32.2 % Normal 19-41 [facility] Comment on above: Performed By: #### L 101.9900, L501.6710, L100.0100, L500.3400, L501.1105 ####[facility] [address] [place], [address] MCH (RBC) [Entitic mass] 30.6 pg Normal 27.0-32.0 [facility] Comment on above: Performed By: #### L 101.9900, L501.6710, L100.0100, L500.3400, L501.1105 ####[facility] [address] [place], [address] MCHC (RBC) [Mass/Vol] 33.8 g/dL Normal 32-36 [facility] Comment on above: Performed By: #### L 101.9900, L501.6710, L100.0100, L500.3400, L501.1105 ####[facility] [address] [place], [address] MCV (RBC) [Entitic vol] 90.4 fL Normal 80-94 [facility] Comment on above: Performed By: #### L 101.9900, L501.6710, L100.0100, L500.3400, L501.1105 ####[facility] [address] [place], [address] Monocytes/100 WBC (Bld) 9.4 % Normal 0-10 [facility] Comment on above: Performed By: #### L 101.9900, L501.6710, L100.0100, L500.3400, L501.1105 ####[facility] [address] [place], [address] Neutrophils/100 WBC (Bld) 55.1 % Normal 47-70 [facility] Comment on above: Performed By: #### L 101.9900, L501.6710, L100.0100, L500.3400, L501.1105 ####[facility] [address] [place], [address] Nucleated RBC (Bld) [#/Vol] 0 10*3/uL Normal 0-5 [facility] Comment on above: Performed By: #### L 101.9900, L501.6710, L100.0100, L500.3400, L501.1105 ####[facility] [address] [place], [address] Platelet mean volume (Bld) [Entitic vol] 9.4 fL Normal 6.2-12.0 [facility] Comment on above: Performed By: #### L 101.9900, L501.6710, L100.0100, L500.3400, L501.1105 ####[facility] [address] [place], [address] Platelets (Bld) [#/Vol] 338 10*3/uL Normal 150-450 [facility] Comment on above: Performed By: #### L 101.9900, L501.6710, L100.0100, L500.3400, L501.1105 ####[facility] [address] [place], [address] RBC (Bld) [#/Vol] 5.23 10*6/uL Normal 4.6-6.2 [facility] Comment on above: Performed By: #### L 101.9900, L501.6710, L100.0100, L500.3400, L501.1105 ####[facility] [address] [place], [address] RDW SD 43.1 fl Normal 35.1-43.9 [facility] Comment on above: Performed By: #### L 101.9900, L501.6710, L100.0100, L500.3400, L501.1105 ####[facility] [address] [place], [address] WBC (Bld) [#/Vol] 7.3 10*3/uL Normal 4.4-11.0 [facility] Comment on above: Performed By: #### L 101.9900, L501.6710, L100.0100, L500.3400, L501.1105 ####[facility] [address] [place], [address] CRPon 11-07-2024 C-REACTIVE PROT < 3.00 Normal 0.0-3.0 [facility] Comment on above: Performed By: #### L 101.9900, L501.6710, L100.0100, L500.3400, L501.1105 ####[facility] [address] [place], [place], [id number] CRP [Mass/Vol]on 11-07-2024 C-Reactive Protein Extended Range < 3.00 mg/L 0.0-3.0 [facility] Eosinophil percentageon 03-0 Eosinophils/100 WBC (Bld) 1.8 % 0-5 [facility] Erythrocyte Sed Rateon 11-07 SED RATE 1 mm/hr Normal 0-20 [facility] Comment on above: Performed By: #### L 101.9900, L501.6710, L100.0100, L500.3400, L501.1105 ####[facility] [address] [place], [place], [address] Erythrocyte distribution wid th ratioon 11-07-2024 Erythrocyte distribution width (RBC) [Ratio] 13.1 % 11.6-14.6 [facility] Erythrocyte distribution wid th standard deviationon 11-07-2024 Erythrocyte distribution width (RBC) [Entitic vol] 43.1 fL 35.1-43.9 [facility] Erythrocyte distribution width (RBC) [Ratio] 43.1 fl 35.1-43.9 [facility] Erythrocyte sedimentation ra sonya 11-07-2024 ESR (Bld) [Velocity] 1 mm/h 0-20 [facility] GFR/1.73 sq M.predicted nael g non-blacks MDRD (S/P/Bld) [Vol rate/Area]on 11-07-2024 Estimated GFR (MDRD) Non-Af Amer 91 >60 [facility] Comment on above: mL/min/1.73m2 CKD-EP I Creatinine Equation (2020) Glomerular filtration rate ( GFR) estimation/1.73 sq m using serum, plasma, or whole bon 11-07-2024 GFR/1.73 sq M.predicted among non-blacks MDRD (S/P/Bld) [Vol rate/Area] 91 mL/min/{1.73_m2} >60 [facility] Comment on above: mL/min/1.73m2 CKD-EP I Creatinine Equation (2021) Hematocrit Auto (Bld) [Volum e fraction]on 11-07-2024 Hematocrit (Bld) [Volume fraction] 47.3 % 40-54 [facility] Hemoglobin measurementon Hemoglobin (Bld) [Mass/Vol] 16.0 g/dL 13.0-16.5 [facility] Immature granulocytes/100 WB C Auto (Bld)on 11-07-2024 Immature granulocytes/100 WBC (Bld) 0.500 % 0.0-0.9 [facility] Comment on above: IG% - Immature Granu locytes (promyelocytes, myelocytes and metamyelocytes) > 1% indicates that a LEFT SHIFT is Present. Laboratory - Chemistry and C hemistry - challengeon 11-07-2024 AST [Catalytic activity/Vol] 27 U/L <38 [facility] Comment on above: Hemolysis present, R esults could be affected. Liver Profileon 11-07-2024 Albumin [Mass/Vol] 4.2 g/dL Normal 3.4-4.8 [facility] Comment on above: Order Comment: CBCD Performed By: #### L 101.9900, L501.6710, L100.0100, L500.3400, L501.1105 ####[facility] [address] [place], [address] ALK PHOS 97 U/L Normal 40-129 [facility] Comment on above: Order Comment: CBCD Performed By: #### L 101.9900, L501.6710, L100.0100, L500.3400, L501.1105 ####[facility] [address] [place], [address] ALT [Catalytic activity/Vol] 19 U/L Normal <=46 [facility] Comment on above: Order Comment: CBCD Performed By: #### L 101.9900, L501.6710, L100.0100, L500.3400, L501.1105 ####[facility] [address] [place], [address] AST [Catalytic activity/Vol] 27 U/L Normal <=37 [facility] Comment on above: Order Comment: CBCD Result Comment: Hemo lysis present, Results??could be affected. ?? Performed By: #### L 101.9900, L501.6710, L100.0100, L500.3400, L501.1105 ####[facility] [address] [place], [address] Bilirubin [Mass/Vol] 0.49 mg/dL Normal 0.00-1.30 [facility] Comment on above: Order Comment: CBCD Performed By: #### L 101.9900, L501.6710, L100.0100, L500.3400, L501.1105 ####[facility] [address] [place], [address] Bilirubin.direct [Mass/Vol] 0.17 mg/dL Normal 0.00-0.30 [facility] Comment on above: Order Comment: CBCD Result Comment: Hemo lysis present, Results??could be affected. ?? Performed By: #### L 101.9900, L501.6710, L100.0100, L500.3400, L501.1105 ####[facility] [address] [place], [address] Globulin (S) [Mass/Vol] 2.7 g/dL Normal 2.2-4.2 [facility] Comment on above: Order Comment: CBCD Performed By: #### L 101.9900, L501.6710, L100.0100, L500.3400, L501.1105 ####[facility] [address] [place], [address] T PROT 6.8 g/dL Normal 5.9-8.4 [facility] Comment on above: Order Comment: CBCD Performed By: #### L 101.9900, L501.6710, L100.0100, L500.3400, L501.1105 ####[facility] [address] [place], [address] Lymphocytes Auto (Unsp spec) [#/Vol]on 11-07-2024 Lymphocytes (Bld) [#/Vol] 2.36 10*3/uL 0.83-4.51 [facility] Lymphocytes/100 WBC Auto (Un sp spec)on 11-07-2024 Lymphocytes/100 WBC (Bld) 32.2 % 19-41 [facility] MCV (mean corpuscular volume ) determinationon 11-07-2024 MCV (RBC) [Entitic vol] 90.4 fL 80-94 [facility] Mean corpuscular hemoglobin (MCH) determinationon 11-07-2024 MCH (RBC) [Entitic mass] 30.6 pg 27.0-32.0 [facility] Mean corpuscular hemoglobin concentration (MCHC) determinationon 11-07-2024 MCHC (RBC) [Mass/Vol] 33.8 g/dL 32-36 [facility] Mean platelet volume determi nationon 11-07-2024 Platelet mean volume (Bld) [Entitic vol] 9.4 fL 6.2-12.0 [facility] Monocyte percentageon 2024 Monocytes/100 WBC (Bld) 9.4 % 0-10 [facility] Neutrophil percentageon 03-0 -2024 Neutrophils/100 WBC (Bld) 55.1 % 47-70 [facility] Nucleated red blood cell per centageon 11-07-2024 Nucleated RBC/100 WBC (Bld) [Ratio] 0 % 0-5 [facility] Platelet counton 11-07-2024 Platelets (Bld) [#/Vol] 338 10*3/uL 150-450 [facility] RBC Auto (Bld) [#/Vol]on RBC (Bld) [#/Vol] 5.23 10*6/uL 4.6-6.2 [facility] Serum Creatinine AND GFRon 0 11-07-2024 Creatinine [Mass/Vol] 0.95 mg/dL Normal 0.70-1.20 [facility] Comment on above: Performed By: #### L 101.9900, L501.6710, L100.0100, L500.3400, L501.1105 ####[facility] [address] [place], [place], [address] GFR/1.73 sq M.predicted among non-blacks MDRD (S/P/Bld) [Vol rate/Area] 91 mL/min/{1.73_m2} Normal >60 [facility] Comment on above: Result Comment: mL/m in/1.73m2 CKD-EPI Creatinine Equation (2020) Performed By: #### L 101.9900, L501.6710, L100.0100, L500.3400, L501.1105 ####[facility] [address] [place], [place], [id number] Serum creatinine measurement (mass/volume)on 11-07-2024 Creatinine [Mass/Vol] 0.95 mg/dL 0.70-1.20 [facility] Serum globulin measurementon 11-07-2024 Globulin (S) [Mass/Vol] 2.7 g/dL 2.2-4.2 [facility] Serum or plasma C reactive p rotein measurement (mass/volume)on 11-07-2024 CRP [Mass/Vol] mg/L 0.0-3.0 [facility] Serum or plasma alanine oleary otransferase (ALT) measurementon 11-07-2024 ALT [Catalytic activity/Vol] 19 U/L <47 [facility] Serum or plasma albumin kendra urement (mass/volume)on 11-07-2024 Albumin [Mass/Vol] 4.2 g/dL 3.4-4.8 [facility] Serum or plasma alkaline branden sphatase measurementon 11-07-2024 ALP [Catalytic activity/Vol] 97 U/L 40-129 [facility] Total proteinon 11-07-2024 Protein [Mass/Vol] 6.8 g/dL 5.9-8.4 [facility] White blood cell (WBC) count on 11-07-2024 WBC (Bld) [#/Vol] 7.3 10*3/uL 4.4-11.0 [facility] Absolute neutrophil counton 08-08-2024 Neutrophils (Bld) [#/Vol] 3.6 10*3/uL 2.0-7.7 [facility] Basophil percentageon 2023 Basophils/100 WBC (Bld) 0.7 % 0-1 [facility] Bilirubin directon Bilirubin.direct [Mass/Vol] 0.14 mg/dL 0.00-0.30 [facility] Bilirubin, totalon Bilirubin [Mass/Vol] 0.50 mg/dL 0.20-1.00 [facility] Comment on above: For patients on eltr ombopag therapy, use of Dimension [place] TBIL is not recommended. C-reactive protein measureme nt by high sensitivity methodon 08-08-2024 C-Reactive Protein Extended Range < 2.90 mg/L 0.0-3.0 [facility] Comment on above: C-Reactive Protein ( CRP) provides useful information for thediagnosis, therapy and monitoring of inflammatory processesand associated diseases. For the evaluation of Relative Riskfor Cardiovascular Disease, a High Sensitivity CRP (HSCRP)should be ordered. CBC W/Diff, Automatedon Absolute Lymph 2.28 X10 3/uL Normal 0.83-4.51 [facility] Comment on above: Performed By: #### L 100.0100, L500.3400, L501.1105, L101.9900, L501.6710 ####[facility] [address] [place], [address] Absolute Neut 3.6 X10 3/uL Normal 2.0-7.7 [facility] Comment on above: Performed By: #### L 100.0100, L500.3400, L501.1105, L101.9900, L501.6710 ####[facility] [address] [place], [address] Basophils/100 WBC (Bld) 0.7 % Normal 0-1 [facility] Comment on above: Performed By: #### L 100.0100, L500.3400, L501.1105, L101.9900, L501.6710 ####[facility] [address] [place], [address] Eosinophils/100 WBC (Bld) 1.6 % Normal 0-5 [facility] Comment on above: Performed By: #### L 100.0100, L500.3400, L501.1105, L101.9900, L501.6710 ####[facility] [address] [place], [address] Erythrocyte distribution width (RBC) [Ratio] 12.8 % Normal 11.6-14.6 [facility] Comment on above: Performed By: #### L 100.0100, L500.3400, L501.1105, L101.9900, L501.6710 ####[facility] [address] [place], [address] Hematocrit (Bld) [Volume fraction] 48.7 % Normal 40-54 [facility] Comment on above: Performed By: #### L 100.0100, L500.3400, L501.1105, L101.9900, L501.6710 ####[facility] [address] [place], [address] Hemoglobin (Bld) [Mass/Vol] 16.5 g/dL Normal 13.0-16.5 [facility] Comment on above: Performed By: #### L 100.0100, L500.3400, L501.1105, L101.9900, L501.6710 ####[facility] [address] [place], [address] IG% 0.600 Normal 0.0-0.9 [facility] Comment on above: Result Comment: IG% - Immature Granulocytes (promyelocytes, myelocytes and metamyelocytes) > 1% indicates that a LEFT SHIFT is Present. Performed By: #### L 100.0100, L500.3400, L501.1105, L101.9900, L501.6710 ####[facility] [address] [place], [address] Lymphocytes/100 WBC (Bld) 34.0 % Normal 19-41 [facility] Comment on above: Performed By: #### L 100.0100, L500.3400, L501.1105, L101.9900, L501.6710 ####[facility] [address] [place], [address] MCH (RBC) [Entitic mass] 30.6 pg Normal 27.0-32.0 [facility] Comment on above: Performed By: #### L 100.0100, L500.3400, L501.1105, L101.9900, L501.6710 ####[facility] [address] [place], [address] MCHC (RBC) [Mass/Vol] 33.9 g/dL Normal 32-36 [facility] Comment on above: Performed By: #### L 100.0100, L500.3400, L501.1105, L101.9900, L501.6710 ####[facility] [address] [place], [address] MCV (RBC) [Entitic vol] 90.2 fL Normal 80-94 [facility] Comment on above: Performed By: #### L 100.0100, L500.3400, L501.1105, L101.9900, L501.6710 ####[facility] [address] [place], [address] Monocytes/100 WBC (Bld) 9.9 % Normal 0-10 [facility] Comment on above: Performed By: #### L 100.0100, L500.3400, L501.1105, L101.9900, L501.6710 ####[facility] [address] [place], [address] Neutrophils/100 WBC (Bld) 53.2 % Normal 47-70 [facility] Comment on above: Performed By: #### L 100.0100, L500.3400, L501.1105, L101.9900, L501.6710 ####[facility] [address] [place], [address] Nucleated RBC (Bld) [#/Vol] 0 10*3/uL Normal 0-5 [facility] Comment on above: Performed By: #### L 100.0100, L500.3400, L501.1105, L101.9900, L501.6710 ####[facility] [address] [place], [address] Platelet mean volume (Bld) [Entitic vol] 9.6 fL Normal 6.2-12.0 [facility] Comment on above: Performed By: #### L 100.0100, L500.3400, L501.1105, L101.9900, L501.6710 ####[facility] [address] [place], [address] Platelets (Bld) [#/Vol] 308 10*3/uL Normal 150-450 [facility] Comment on above: Performed By: #### L 100.0100, L500.3400, L501.1105, L101.9900, L501.6710 ####[facility] [address] [place], [address] RBC (Bld) [#/Vol] 5.40 10*6/uL Normal 4.6-6.2 [facility] Comment on above: Performed By: #### L 100.0100, L500.3400, L501.1105, L101.9900, L501.6710 ####[facility] [address] [place], [address] RDW SD 42.4 fl Normal 35.1-43.9 [facility] Comment on above: Performed By: #### L 100.0100, L500.3400, L501.1105, L101.9900, L501.6710 ####[facility] [address] [place], [address] WBC (Bld) [#/Vol] 6.7 10*3/uL Normal 4.4-11.0 [facility] Comment on above: Performed By: #### L 100.0100, L500.3400, L501.1105, L101.9900, L501.6710 ####[facility] [address] [place], [address] CRPon 08-08-2024 C-REACTIVE PROT < 2.90 Normal 0.0-3.0 [facility] Comment on above: Result Comment: C-Re active Protein (CRP) provides useful information for the diagnosis, therapy and monitoring of inflammatory processes and associated diseases. For the evaluation of Relative Risk for Cardiovascular Disease, a High Sensitivity CRP (HSCRP) should be ordered. Performed By: #### L 100.0100, L500.3400, L501.1105, L101.9900, L501.6710 ####[facility] [address] [place], [address] Eosinophil percentageon Eosinophils/100 WBC (Bld) 1.6 % 0-5 [facility] Erythrocyte Sed Rateon 08-08 SED RATE < 1 Normal 0-20 [facility] Comment on above: Performed By: #### L 100.0100, L500.3400, L501.1105, L101.9900, L501.6710 ####[facility] [address] [place], [address] Erythrocyte distribution wid th ratioon 08-08-2024 Erythrocyte distribution width (RBC) [Ratio] 12.8 % 11.6-14.6 [facility] Erythrocyte distribution wid th standard deviationon 08-08-2024 Erythrocyte distribution width (RBC) [Entitic vol] 42.4 fL 35.1-43.9 [facility] Erythrocyte sedimentation ra sonya 08-08-2024 ESR (Bld) [Velocity] mm/h 0-20 [facility] Estimated glomerular filtrat ion rate (GFR) Americanon 08-08-2024 Estimated GFR (MDRD) Amer 100 mL/min >60 [facility] Comment on above: GFR Calc Glomerular filtration rate ( GFR) estimationon 08-08-2024 Estimated GFR (MDRD) Non-Af Amer 83 mL/min >60 [facility] Comment on above: Non- GFR Calc Hematocrit Auto (Bld) [Volum e fraction]on 08-08-2024 Hematocrit (Bld) [Volume fraction] 48.7 % 40-54 [facility] Hemoglobin measurementon Hemoglobin (Bld) [Mass/Vol] 16.5 g/dL 13.0-16.5 [facility] Immature granulocytes/100 WB C Auto (Bld)on 08-08-2024 Immature granulocytes/100 WBC (Bld) 0.600 % 0.0-0.9 [facility] Comment on above: IG% - Immature Granu locytes (promyelocytes, myelocytes and metamyelocytes) > 1% indicates that a LEFT SHIFT is Present. Laboratory - Chemistry and C hemistry - challengeon 08-08-2024 AST [Catalytic activity/Vol] 24 U/L 15-37 [facility] Liver Profileon 08-08-2024 Albumin [Mass/Vol] 3.9 g/dL Normal 3.2-5.0 [facility] Comment on above: Performed By: #### L 100.0100, L500.3400, L501.1105, L101.9900, L501.6710 ####[facility] [address] [place], [place], [address] ALK P 95 U/L Normal 45-117 [facility] Comment on above: Performed By: #### L 100.0100, L500.3400, L501.1105, L101.9900, L501.6710 ####[facility] [address] [place], [address] ALT [Catalytic activity/Vol] 29 U/L Normal 16-61 [facility] Comment on above: Performed By: #### L 100.0100, L500.3400, L501.1105, L101.9900, L501.6710 ####[facility] [address] [place], [address] AST [Catalytic activity/Vol] 24 U/L Normal 15-37 [facility] Comment on above: Performed By: #### L 100.0100, L500.3400, L501.1105, L101.9900, L501.6710 ####[facility] [address] [place], [address] Bilirubin [Mass/Vol] 0.50 mg/dL Normal 0.20-1.00 [facility] Comment on above: Result Comment: For patients on eltrombopag therapy, use of Dimension [place] TBIL is not recommended. Performed By: #### L 100.0100, L500.3400, L501.1105, L101.9900, L501.6710 ####[facility] [address] [place], [address] Bilirubin.direct [Mass/Vol] 0.14 mg/dL Normal 0.00-0.30 [facility] Comment on above: Performed By: #### L 100.0100, L500.3400, L501.1105, L101.9900, L501.6710 ####[facility] [address] [place], [address] Globulin (S) [Mass/Vol] 3.2 g/dL Normal 2.2-4.2 [facility] Comment on above: Performed By: #### L 100.0100, L500.3400, L501.1105, L101.9900, L501.6710 ####[facility] [address] [place], [place], [address] T PROT 7.1 g/dL Normal 6.4-8.2 [facility] Comment on above: Performed By: #### L 100.0100, L500.3400, L501.1105, L101.9900, L501.6710 ####[facility] [address] [place], [address] Lymphocytes Auto (Unsp spec) [#/Vol]on 08-08-2024 Lymphocytes (Bld) [#/Vol] 2.28 10*3/uL 0.83-4.51 [facility] Lymphocytes/100 WBC Auto (Un sp spec)on 08-08-2024 Lymphocytes/100 WBC (Bld) 34.0 % 19-41 [facility] MCV (mean corpuscular volume ) determinationon 08-08-2024 MCV (RBC) [Entitic vol] 90.2 fL 80-94 [facility] Mean corpuscular hemoglobin (MCH) determinationon 08-08-2024 MCH (RBC) [Entitic mass] 30.6 pg 27.0-32.0 [facility] Mean corpuscular hemoglobin concentration (MCHC) determinationon 08-08-2024 MCHC (RBC) [Mass/Vol] 33.9 g/dL 32-36 [facility] Mean platelet volume determi nationon 08-08-2024 Platelet mean volume (Bld) [Entitic vol] 9.6 fL 6.2-12.0 [facility] Monocyte percentageon 2023 Monocytes/100 WBC (Bld) 9.9 % 0-10 [facility] Neutrophil percentageon 12-0 Neutrophils/100 WBC (Bld) 53.2 % 47-70 [facility] Nucleated red blood cell per centageon 08-08-2024 Nucleated RBC/100 WBC (Bld) [Ratio] 0 % 0-5 [facility] Platelet counton 08-08-2024 Platelets (Bld) [#/Vol] 308 10*3/uL 150-450 [facility] RBC Auto (Bld) [#/Vol]on RBC (Bld) [#/Vol] 5.40 10*6/uL 4.6-6.2 [facility] Serum Creatinine AND GFRon 1 10-09-2023 Creatinine [Mass/Vol] 0.98 mg/dL Normal 0.70-1.30 [facility] Comment on above: Result Comment: The validity of the calculated GFR GFRAA in patients over 70 years has not been determined. Clinical correlation is essential. Performed By: #### L 100.0100, L500.3400, L501.1105, L101.9900, L501.6710 ####[facility] [address] [place], [place], [id number] EST GFR - AA 100 mL/min Normal >60 [facility] Comment on above: Result Comment: Afri can Slovenian GFR Calc Performed By: #### L 100.0100, L500.3400, L501.1105, L101.9900, L501.6710 ####[facility] [address] [place], [place], [address] GFR/1.73 sq M.predicted among non-blacks MDRD (S/P/Bld) [Vol rate/Area] 83 mL/min/{1.73_m2} Normal >60 [facility] Comment on above: Result Comment: Non- GFR Calc Performed By: #### L 100.0100, L500.3400, L501.1105, L101.9900, L501.6710 ####[facility] [address] [place], [place], [id number] Serum globulin measurementon 08-08-2024 Globulin (S) [Mass/Vol] 3.2 g/dL 2.2-4.2 [facility] Serum or plasma alanine oleary otransferase (ALT) measurementon 08-08-2024 ALT [Catalytic activity/Vol] 29 U/L 16-61 [facility] Serum or plasma albumin kendra urement (mass/volume)on 08-08-2024 Albumin [Mass/Vol] 3.9 g/dL 3.2-5.0 [facility] Serum or plasma alkaline branden sphatase measurementon 08-08-2024 ALP [Catalytic activity/Vol] 95 U/L 45-117 [facility] Serum or plasma creatinine m easurement (mass/volume)on 08-08-2024 Creatinine [Mass/Vol] 0.98 mg/dL 0.70-1.30 [facility] Comment on above: The validity of the calculated GFR & GFRAA in patients over 70 years has not been determined. Clinical correlation is essential. Total proteinon 08-08-2024 Protein [Mass/Vol] 7.1 g/dL 6.4-8.2 [facility] White blood cell (WBC) count on 08-08-2024 WBC (Bld) [#/Vol] 6.7 10*3/uL 4.4-11.0 [facility] CBC, Employeeon 05-03-2024 Absolute Lymph 2.41 X10 3/uL Normal 0.83-4.51 [facility] Comment on above: Performed By: #### L 500.2500, L100.0100, L501.9520, L506.0400, L500.4100, [id number] #### [facility] [address] [place], [address] Absolute Neut 2.6 X10 3/uL Normal 2.0-7.7 [facility] Comment on above: Performed By: #### L 500.2500, L100.0100, L501.9520, L506.0400, L500.4100, [id number] #### [facility] [address] [place], [address] Basophils/100 WBC (Bld) 1.0 % Normal 0-1 [facility] Comment on above: Performed By: #### L 500.2500, L100.0100, L501.9520, L506.0400, L500.4100, [id number] #### [facility] [address] [place], [address] Eosinophils/100 WBC (Bld) 3.4 % Normal 0-5 [facility] Comment on above: Performed By: #### L 500.2500, L100.0100, L501.9520, L506.0400, L500.4100, [id number] #### [facility] [address] [place], [place], [address] Erythrocyte distribution width (RBC) [Ratio] 13.2 % Normal 11.6-14.6 [facility] Comment on above: Performed By: #### L 500.2500, L100.0100, L501.9520, L506.0400, L500.4100, L501.24415 #### [facility] [address] [place], [address] Hematocrit (Bld) [Volume fraction] 48.4 % Normal 40-54 [facility] Comment on above: Performed By: #### L 500.2500, L100.0100, L501.9520, L506.0400, L500.4100, L501.65385 #### [facility] [address] [place], [address] Hemoglobin (Bld) [Mass/Vol] 16.2 g/dL Normal 13.0-16.5 [facility] Comment on above: Performed By: #### L 500.2500, L100.0100, L501.9520, L506.0400, L500.4100, L501.04264 #### [facility] [address] [place], [address] Lymphocytes/100 WBC (Bld) 41.2 % High 19-41 [facility] Comment on above: Performed By: #### L 500.2500, L100.0100, L501.9520, L506.0400, L500.4100, L501.53556 #### [facility] [address] [place], [address] MCH (RBC) [Entitic mass] 29.9 pg Normal 27.0-32.0 [facility] Comment on above: Performed By: #### L 500.2500, L100.0100, L501.9520, L506.0400, L500.4100, L501.88600 #### [facility] [address] [place], [address] MCHC (RBC) [Mass/Vol] 33.5 g/dL Normal 32-36 [facility] Comment on above: Performed By: #### L 500.2500, L100.0100, L501.9520, L506.0400, L500.4100, L501.67990 #### [facility] [address] [place], [address] MCV (RBC) [Entitic vol] 89.5 fL Normal 80-94 [facility] Comment on above: Performed By: #### L 500.2500, L100.0100, L501.9520, L506.0400, L500.4100, L501.21276 #### [facility] [address] [place], [address] Monocytes/100 WBC (Bld) 10.1 % High 0-10 [facility] Comment on above: Performed By: #### L 500.2500, L100.0100, L501.9520, L506.0400, L500.4100, L501.53129 #### [facility] [address] [place], [address] Neutrophils/100 WBC (Bld) 43.8 % Low 47-70 [facility] Comment on above: Performed By: #### L 500.2500, L100.0100, L501.9520, L506.0400, L500.4100, L501.56996 #### [facility] [address] [place], [address] NRBC # 0.00 10 3/uL Normal 0-5 [facility] Comment on above: Performed By: #### L 500.2500, L100.0100, L501.9520, L506.0400, L500.4100, L501.95316 #### [facility] [address] [place], [address] Nucleated RBC (Bld) [#/Vol] 0 10*3/uL Normal 0-5 [facility] Comment on above: Performed By: #### L 500.2500, L100.0100, L501.9520, L506.0400, L500.4100, L501.64579 #### [facility] [address] [place], [address] Platelet mean volume (Bld) [Entitic vol] 9.3 fL Normal 6.2-12.0 [facility] Comment on above: Performed By: #### L 500.2500, L100.0100, L501.9520, L506.0400, L500.4100, L501.48648 #### [facility] [address] [place], [address] Platelets (Bld) [#/Vol] 307 10*3/uL Normal 150-450 [facility] Comment on above: Performed By: #### L 500.2500, L100.0100, L501.9520, L506.0400, L500.4100, L501.40773 #### [facility] [address] [place], [address] RBC (Bld) [#/Vol] 5.41 10*6/uL Normal 4.6-6.2 [facility] Comment on above: Performed By: #### L 500.2500, L100.0100, L501.9520, L506.0400, L500.4100, L501.33870 #### [facility] [address] [place], [address] RDW SD 43.1 fl Normal 35.1-43.9 [facility] Comment on above: Performed By: #### L 500.2500, L100.0100, L501.9520, L506.0400, L500.4100, L501.03070 #### [facility] [address] [place], [address] WBC (Bld) [#/Vol] 5.9 10*3/uL Normal 4.4-11.0 [facility] Comment on above: Performed By: #### L 500.2500, L100.0100, L501.9520, L506.0400, L500.4100, L501.62758 #### [facility] [address] [place], [address] CRPon 05-03-2024 C-REACTIVE PROT < 2.90 Normal 0.0-3.0 [facility] Comment on above: Result Comment: C-Re active Protein (CRP) provides useful information for the diagnosis, therapy and monitoring of inflammatory processes and associated diseases. For the evaluation of Relative Risk for Cardiovascular Disease, a High Sensitivity CRP (HSCRP) should be ordered. Performed By: #### L 501.1105, L500.4100, L101.9900, L501.6710 ####[facility] [address] [place], [address] Employee Profileon Albumin [Mass/Vol] 3.5 g/dL Normal 3.2-5.0 [facility] Comment on above: Performed By: #### L 500.2900, L100.0200, L400.0100 ####[facility] [address] [place], [address] Albumin/Globulin [Mass ratio] 1.1 {ratio} Normal 0.9-2.4 [facility] Comment on above: Performed By: #### L 500.2900, L100.0200, L400.0100 ####[facility] [address] [place], [address] ALK P 96 U/L Normal 45-117 [facility] Comment on above: Performed By: #### L 500.2900, L100.0200, L400.0100 ####[facility] [address] [place], [address] ALT [Catalytic activity/Vol] 28 U/L Normal 16-61 [facility] Comment on above: Performed By: #### L 500.2900, L100.0200, L400.0100 ####[facility] [address] [place], [address] AST [Catalytic activity/Vol] 21 U/L Normal 15-37 [facility] Comment on above: Performed By: #### L 500.2900, L100.0200, L400.0100 ####[facility] [address] [place], [address] Bilirubin [Mass/Vol] 0.80 mg/dL Normal 0.20-1.00 [facility] Comment on above: Result Comment: For patients on eltrombopag therapy, use of Dimension [place] TBIL is not recommended. Performed By: #### L 500.2900, L100.0200, L400.0100 ####[facility] [address] [place], [address] Bilirubin.direct [Mass/Vol] 0.18 mg/dL Normal 0.00-0.30 [facility] Comment on above: Performed By: #### L 500.2900, L100.0200, L400.0100 ####[facility] [address] [place], [address] BUN/CRE 15.2 RATIO Normal 10-20 [facility] Comment on above: Performed By: #### L 500.2900, L100.0200, L400.0100 ####[facility] [address] [place], [address] CA,Total 8.7 mg/dL Normal 8.5-10.1 [facility] Comment on above: Performed By: #### L 500.2900, L100.0200, L400.0100 ####[facility] [address] [place], [address] Chloride [Moles/Vol] 108 mmol/L High 98-107 [facility] Comment on above: Performed By: #### L 500.2900, L100.0200, L400.0100 ####[facility] [address] [place], [address] CHOL:HDL 3.50 Normal [facility] Comment on above: Performed By: #### L 500.2900, L100.0200, L400.0100 ####[facility] [address] [place], [address] Cholesterol [Mass/Vol] 192 mg/dL Normal 200 [facility] Comment on above: Result Comment: <200 mg/dL Desirable 200-240 mg/dL Borderline >240 mg/dL High Risk Performed By: #### L 500.2900, L100.0200, L400.0100 ####[facility] [address] [place], [address] Cholesterol in HDL [Mass/Vol] 55 mg/dL Normal [facility] Comment on above: Result Comment: The drugs N-Acetylcysteine and Metamizole may falsely depress this assay. Reference Range HDL <40 mg/dL Low HDL Cholesterol HDL >or= 60 mg/dL High HDL Cholesterol Performed By: #### L 500.2900, L100.0200, L400.0100 ####[facility] [address] [place], [address] Cholesterol in LDL [Mass/Vol] 111 mg/dL Normal 0-130 [facility] Comment on above: Performed By: #### L 500.2900, L100.0200, L400.0100 ####[facility] [address] [place], [address] Cholesterol in VLDL [Mass/Vol] 26 mg/dL Normal 5-40 [facility] Comment on above: Performed By: #### L 500.2900, L100.0200, L400.0100 ####[facility] [address] [place], [address] CO2 [Moles/Vol] 28.0 mmol/L Normal 21.0-32.0 [facility] Comment on above: Performed By: #### L 500.2900, L100.0200, L400.0100 ####[facility] [address] [place], [address] Creatinine [Mass/Vol] 0.92 mg/dL Normal 0.70-1.30 [facility] Comment on above: Result Comment: The validity of the calculated GFR GFRAA in patients over 70 years has not been determined. Clinical correlation is essential. Performed By: #### L 500.2900, L100.0200, L400.0100 ####[facility] [address] [place], [address] EST GFR - AA 108 mL/min Normal >60 [facility] Comment on above: Result Comment: Afri can Slovenian GFR Calc Performed By: #### L 500.2900, L100.0200, L400.0100 ####[facility] [address] [place], [address] GAP 3 Low 5-15 [facility] Comment on above: Performed By: #### L 500.2900, L100.0200, L400.0100 ####[facility] [address] [place], [address] GFR/1.73 sq M.predicted among non-blacks MDRD (S/P/Bld) [Vol rate/Area] 89 mL/min/{1.73_m2} Normal >60 [facility] Comment on above: Result Comment: Non- GFR Calc Performed By: #### L 500.2900, L100.0200, L400.0100 ####[facility] [address] [place], [address] Globulin (S) [Mass/Vol] 3.3 g/dL Normal 2.2-4.2 [facility] Comment on above: Performed By: #### L 500.2900, L100.0200, L400.0100 ####[facility] [address] [place], [address] Glucose [Mass/Vol] 107 mg/dL High 74-106 [facility] Comment on above: Result Comment: Fast ing Glucose result from 100 to 125 mg/dL suggests IMPAIRED HOMEOSTASIS per A.D.A. criteria. Performed By: #### L 500.2900, L100.0200, L400.0100 ####[facility] [address] [place], [address] LDH 182 U/L Normal 87-241 [facility] Comment on above: Performed By: #### L 500.2900, L100.0200, L400.0100 ####[facility] [address] [place], [address] Phosphate [Mass/Vol] 2.5 mg/dL Normal 2.5-4.9 [facility] Comment on above: Performed By: #### L 500.2900, L100.0200, L400.0100 ####[facility] [address] [place], [address] Potassium [Moles/Vol] 4.4 mmol/L Normal 3.5-5.1 [facility] Comment on above: Performed By: #### L 500.2900, L100.0200, L400.0100 ####[facility] [address] [place], [address] Sodium [Moles/Vol] 139 mmol/L Normal 136-145 [facility] Comment on above: Performed By: #### L 500.2900, L100.0200, L400.0100 ####[facility] [address] [place], [address] T PROT 6.8 g/dL Normal 6.4-8.2 [facility] Comment on above: Performed By: #### L 500.2900, L100.0200, L400.0100 ####[facility] [address] [place], [address] Triglyceride [Mass/Vol] 132 mg/dL Normal [facility] Comment on above: Result Comment: The drugs N-Acetylcysteine and Metamizole may falsely depress this assay. Serum Triglycerides Reference Interval Normal <150 mg/dL Borderline high 150 - 199 mg/dL High 200 - 499 mg/dL Very High > or = 500 mg/dL Performed By: #### L 500.2900, L100.0200, L400.0100 ####[facility] [address] [place], [address] Urea nitrogen [Mass/Vol] 14 mg/dL Normal 7-18 [facility] Comment on above: Performed By: #### L 500.2900, L100.0200, L400.0100 ####[facility] [address] [place], [address] URIC 6.0 mg/dL Normal 3.5-7.2 [facility] Comment on above: Result Comment: The drugs N-Acetylcysteine and Metamizole may falsely depress this assay. Performed By: #### L 500.2900, L100.0200, L400.0100 ####[facility] [address] [place], [address] Erythrocyte Sed Rateon 05-03 SED RATE 1 mm/hr Normal 0-20 [facility] Comment on above: Performed By: #### L 501.1105, L500.4100, L101.9900, L501.6710 ####[facility] [address] [place], [address] Lipid Profileon 05-03-2024 CHOL Normal 200 [facility] Comment on above: Result Comment: <200 mg/dL Desirable 200-240 mg/dL Borderline >240 mg/dL High Risk Performed By: #### L 501.1105, L500.4100, L101.9900, L501.6710 #### [facility] [address] [place], [address] HDL Normal [facility] Comment on above: Result Comment: The drugs N-Acetylcysteine and Metamizole may falsely depress this assay. Reference Range HDL <40 mg/dL Low HDL Cholesterol HDL >or= 60 mg/dL High HDL Cholesterol Performed By: #### L 501.1105, L500.4100, L101.9900, L501.6710 #### [facility] [address] [place], [address] LDL Normal 0-130 [facility] Comment on above: Performed By: #### L 501.1105, L500.4100, L101.9900, L501.6710 #### [facility] [address] [place], [address] TRIG Normal [facility] Comment on above: Result Comment: The drugs N-Acetylcysteine and Metamizole may falsely depress this assay. Serum Triglycerides Reference Interval Normal <150 mg/dL Borderline high 150 - 199 mg/dL High 200 - 499 mg/dL Very High > or = 500 mg/dL Performed By: #### L 501.1105, L500.4100, L101.9900, L501.6710 #### [facility] [address] [place], [address] VLDL Normal 5-40 [facility] Comment on above: Performed By: #### L 501.1105, L500.4100, L101.9900, L501.6710 #### [facility] [address] [place], [address] Serum Creatinine AND GFRon 0 05-03-2024 CREAT,SERUM Normal 0.70-1.30 [facility] Comment on above: Order Comment: ADD O N Result Comment: The validity of the calculated GFR GFRAA in patients over 70 years has not been determined. Clinical correlation is essential. Performed By: #### L 501.1105, L500.4100, L101.9900, L501.6710 ####[facility] [address] [place], [address] EST GFR Normal >60 [facility] Comment on above: Order Comment: ADD O N Result Comment: Non- GFR Calc Performed By: #### L 501.1105, L500.4100, L101.9900, L501.6710 ####[facility] [address] [place], [address] EST GFR - AA Normal >60 [facility] Comment on above: Order Comment: ADD O N Result Comment: Afri can Slovenian GFR Calc Performed By: #### L 501.1105, L500.4100, L101.9900, L501.6710 ####[facility] [address] [place], [address] Urinalysis, Employeeon 05-03 BILIRUBIN URINE Negative Normal Negative [facility] Comment on above: Performed By: #### L 500.2900, L100.0200, L400.0100 ####[facility] [address] [place], [address] Clarity (U) Clear Normal Clear [facility] Comment on above: Performed By: #### L 500.2900, L100.0200, L400.0100 ####[facility] [address] [place], [address] Color (U) Yellow Normal Yellow [facility] Comment on above: Performed By: #### L 500.2900, L100.0200, L400.0100 ####[facility] [address] [place], [address] GLUCOSE, UR Normal Normal Normal [facility] Comment on above: Performed By: #### L 500.2900, L100.0200, L400.0100 ####[facility] [address] [place], [address] KETONE UR Negative Normal Negative [facility] Comment on above: Performed By: #### L 500.2900, L100.0200, L400.0100 ####[facility] [address] [place], [address] LEUK ESTERASE Negative Normal Negative [facility] Comment on above: Performed By: #### L 500.2900, L100.0200, L400.0100 ####[facility] [address] [place], [address] Nitrite Ql (U) Negative Normal Negative [facility] Comment on above: Performed By: #### L 500.2900, L100.0200, L400.0100 ####[facility] [address] [place], [address] OCCULT BLOOD-UR Negative Normal Negative [facility] Comment on above: Performed By: #### L 500.2900, L100.0200, L400.0100 ####[facility] [address] [place], [address] pH UR 6.0 Normal 5.0 - 8.0 [facility] Comment on above: Performed By: #### L 500.2900, L100.0200, L400.0100 ####[facility] [address] [place], [address] PROT DIPSTX 15 mg/dl Abnormal Negative [facility] Comment on above: Performed By: #### L 500.2900, L100.0200, L400.0100 ####[facility] [address] [place], [address] SP.GR. DIPSTX 1.020 Normal 1.002-1.03 0 [facility] Comment on above: Performed By: #### L 500.2900, L100.0200, L400.0100 ####[facility] [address] [place], [address] UROBILI Normal Normal Normal [facility] Comment on above: Performed By: #### L 500.2900, L100.0200, L400.0100 ####[facility] [address] [place], [address] Absolute lymphocyte counton 09-15-2023 Lymphocytes Auto (Unsp spec) [#/Vol] 2.13 10*3/uL 0.83-4.51 [facility] Basophil percentageon 2023 Basophils/100 WBC (Bld) 0.5 % 0-1 [facility] Bilirubin [Mass/Vol] 0.70 mg/dL 0.20-1.00 [facility] Comment on above: For patients on eltr ombopag therapy, use of Dimension [place] TBIL is not recommended. Eosinophils/100 WBC (Bld) 3.0 % 0-5 [facility] Neutrophils (Bld) [#/Vol] 2.8 10*3/uL 2.0-7.7 [facility] Neutrophils/100 WBC (Bld) 49.5 % 47-70 [facility] Protein [Mass/Vol] 6.8 g/dL 6.4-8.2 [facility] WBC (Bld) [#/Vol] 5.6 10*3/uL 4.4-11.0 [facility] Blood erythrocytes count (nu mber/volume)on 09-15-2023 RBC (Bld) [#/Vol] 5.14 10*6/uL 4.6-6.2 [facility] Blood hemoglobin measurement (mass/volume)on 09-15-2023 Hemoglobin (Bld) [Mass/Vol] 16.1 g/dL 13.0-16.5 [facility] Blood lymphocytes/100 leukoc yteson 09-15-2023 Lymphocytes/100 WBC (Bld) 37.8 % 19-41 [facility] Blood monocytes/100 leukocyt eson 09-15-2023 Monocytes/100 WBC (Bld) 8.7 % 0-10 [facility] Blood platelet mean volumeon 09-15-2023 Platelet mean volume (Bld) [Entitic vol] 8.9 fL 6.2-12.0 [facility] Determination of erythrocyte mean corpuscular volume (MCV)on 09-15-2023 MCV (RBC) [Entitic vol] 88.9 fL 80-94 [facility] Direct bilirubinon Bilirubin.direct [Mass/Vol] 0.11 mg/dL 0.00-0.30 [facility] Erythrocyte sedimentation ra sonya 09-15-2023 ESR (Bld) [Velocity] 4 mm/h 0-20 [facility] Hematocrit Auto (Bld) [Volum e fraction]on 09-15-2023 Hematocrit (Bld) [Volume fraction] 45.7 % 40-54 [facility] - Chemistry and C hemistry - challengeon 09-15-2023 ALP [Catalytic activity/Vol] 89 U/L 45-117 [facility] ALT [Catalytic activity/Vol] 22 U/L 16-61 [facility] Globulin (S) [Mass/Vol] 3.4 g/dL 2.2-4.2 [facility] - Hematology and Cell countson 09-15-2023 Erythrocyte distribution width (RBC) [Entitic vol] 41.2 fL 35.1-43.9 [facility] Erythrocyte distribution width (RBC) [Ratio] 12.5 % 11.6-14.6 [facility] Immature granulocytes/100 WBC (Bld) 0.500 % 0.0-0.9 [facility] Comment on above: IG% - Immature Granu locytes (promyelocytes, myelocytes and metamyelocytes) > 1% indicates that a LEFT SHIFT is Present. MCH (RBC) [Entitic mass] 31.3 pg 27.0-32.0 [facility] Nucleated RBC/100 WBC (Bld) [Ratio] 0 % 0-5 [facility] MCHC Auto (RBC) [Mass/Vol]on 09-15-2023 MCHC (RBC) [Mass/Vol] 35.2 g/dL 32-36 [facility] No Panel Informationon 09-15 Estimated GFR (MDRD) Amer 100 mL/min >60 [facility] Comment on above: GFR Calc Estimated GFR (MDRD) Non-Af Amer 83 mL/min >60 [facility] Comment on above: Non- GFR Calc Platelets bldon 09-15-2023 Platelets (Bld) [#/Vol] 318 10*3/uL 150-450 [facility] Serum or plasma C reactive p rotein measurement (mass/volume)on 09-15-2023 CRP [Mass/Vol] mg/L 0.0-3.0 [facility] Comment on above: C-Reactive Protein ( CRP) provides useful information for thediagnosis, therapy and monitoring of inflammatory processesand associated diseases. For the evaluation of Relative Riskfor Cardiovascular Disease, a High Sensitivity CRP (HSCRP)should be ordered. Serum or plasma albumin kendra urement (mass/volume)on 09-15-2023 Albumin [Mass/Vol] 3.4 g/dL 3.2-5.0 [facility] Serum or plasma creatinine m easurement (mass/volume)on 09-15-2023 Creatinine [Mass/Vol] 0.98 mg/dL 0.70-1.30 [facility] Comment on above: The validity of the calculated GFR & GFRAA in patients over 70 years has not been determined. Clinical correlation is essential. Thin prep Papanicolaou smear with manual screeningon 09-15-2023 Thin prep Papanicolaou smear with manual screening 15 U/L 15-37 [facility] Absolute lymphocyte countOrd ered By: HEALTH ASSESSMENT on 06-22-2023 Lymphocytes Auto (Unsp spec) [#/Vol] 2.02 10*3/uL 0.83-4.51 [facility] Absolute reticulocyte countO rdered By: HEALTH ASSESSMENT on 06-22-2023 Reticulocytes (Bld) [#/Vol] 0.00 10*3/uL 0-5 [facility] Basophil percentageOrdered B y: HEALTH ASSESSMENT on 06-22-2023 Basophil percentage 2.9 mg/dL 2.5-4.9 [facility] Bilirubin [Mass/Vol] 0.30 mg/dL 0.20-1.00 [facility] Comment on above: For patients on eltr ombopag therapy, use of Dimension [place] TBIL is not recommended. Chloride [Moles/Vol] 109 mmol/L 98-107 [facility] Cholesterol [Mass/Vol] 181 mg/dL <200 [facility] Comment on above: <200 mg/dL Desirable 200-240 mg/dL Borderline >240 mg/dL High Risk Glucose [Mass/Vol] 85 mg/dL 74-106 [facility] LDH [Catalytic activity/Vol] 218 U/L 87-241 [facility] Comment on above: Slight Hemolysis, Re sult may be falsely increased. Neutrophils (Bld) [#/Vol] 2.8 10*3/uL 2.0-7.7 [facility] Potassium [Moles/Vol] 3.9 mmol/L 3.5-5.1 [facility] Comment on above: Slight Hemolysis, Re sult may be falsely increased. Protein [Mass/Vol] 7.2 g/dL 6.4-8.2 [facility] Sodium [Moles/Vol] 141 mmol/L 136-145 [facility] Triglyceride [Mass/Vol] 361 mg/dL <199 [facility] Comment on above: The drugs N-Acetylcy steine and Metamizole may falsely depress this assay.Serum Triglycerides Reference Interval Normal <150 mg/dL Borderline high 150 - 199 mg/dL High 200 - 499 mg/dL Very High > or = 500 mg/dL WBC (Bld) [#/Vol] 5.7 10*3/uL 4.4-11.0 [facility] Blood erythrocytes count (nu mber/volume)Ordered By: HEALTH ASSESSMENT on 06-22-2023 RBC (Bld) [#/Vol] 5.42 10*6/uL 4.6-6.2 [facility] Blood hemoglobin measurement (mass/volume)Ordered By: HEALTH ASSESSMENT on 06-22-2023 Hemoglobin (Bld) [Mass/Vol] 16.5 g/dL 13.0-16.5 [facility] Blood platelet mean volumeOr dered By: HEALTH ASSESSMENT on 06-22-2023 Platelet mean volume (Bld) [Entitic vol] 9.2 fL 6.2-12.0 [facility] Determination of erythrocyte mean corpuscular volume (MCV)Ordered By: HEALTH ASSESSMENT on 06-22-2023 MCV (RBC) [Entitic vol] 92.8 fL 80-94 [facility] Direct bilirubinOrdered By: HEALTH ASSESSMENT on 06-22-2023 Bilirubin.direct [Mass/Vol] 0.10 mg/dL 0.00-0.30 [facility] Hematocrit Auto (Bld) [Volum e fraction]Ordered By: HEALTH ASSESSMENT on 06-22-2023 Hematocrit (Bld) [Volume fraction] 50.3 % 40-54 [facility] - Chemistry and C hemistry - challengeOrdered By: HEALTH ASSESSMENT on 06-22-2023 ALP [Catalytic activity/Vol] 99 U/L 45-117 [facility] ALT [Catalytic activity/Vol] 28 U/L 16-61 [facility] Cholesterol.total/Richa sterol in HDL [Mass ratio] 4.30 {ratio} [facility] CO2 [Moles/Vol] 28.0 mmol/L 21.0-32.0 [facility] Globulin (S) [Mass/Vol] 3.7 g/dL 2.2-4.2 [facility] Urea nitrogen/Creatinine [Mass ratio] 14.9 mg/mg 10-20 [facility] - Hematology and Cell countsOrdered By: HEALTH ASSESSMENT on 06-22-2023 Erythrocyte distribution width (RBC) [Entitic vol] 45.0 fL 35.1-43.9 [facility] Erythrocyte distribution width (RBC) [Ratio] 13.2 % 11.6-14.6 [facility] MCH (RBC) [Entitic mass] 30.4 pg 27.0-32.0 [facility] Nucleated RBC/100 WBC (Bld) [Ratio] 0 % 0-5 [facility] MCHC Auto (RBC) [Mass/Vol]Or dered By: HEALTH ASSESSMENT on 06-22-2023 MCHC (RBC) [Mass/Vol] 32.8 g/dL 32-36 [facility] No Panel InformationOrdered By: HEALTH ASSESSMENT on 06-22-2023 Estimated GFR (MDRD) Amer 106 mL/min >60 [facility] Comment on above: GFR Calc Estimated GFR (MDRD) Non-Af Amer 87 mL/min >60 [facility] Comment on above: Non- GFR Calc Platelets bldOrdered By: [facility] ASS[facility] on 06-22-2023 Platelets (Bld) [#/Vol] 331 10*3/uL 150-450 [facility] Segmented neutrophils/100 WB C Auto (Bld)Ordered By: HEALTH ASSESSMENT on 06-22-2023 Segmented neutrophils/100 WBC (Bld) 48.5 % 47-70 [facility] Serum or plasma albumin kendra urement (mass/volume)Ordered By: HEALTH ASSESSMENT on 06-22-2023 Albumin [Mass/Vol] 3.5 g/dL 3.2-5.0 [facility] Serum or plasma albumin/glob ulin mass ratioOrdered By: HEALTH ASSESSMENT on 06-22-2023 Albumin/Globulin [Mass ratio] 0.9 {ratio} 0.9-2.4 [facility] Serum or plasma calcium kendra urement (mass/volume)Ordered By: HEALTH ASSESSMENT on 06-22-2023 Calcium [Mass/Vol] 8.3 mg/dL 8.5-10.1 [facility] Serum or plasma cholesterol in HDL measurement (mass/volume)Ordered By: HEALTH ASSESSMENT on 06-22-2023 Cholesterol in HDL [Mass/Vol] 42 mg/dL >40 [facility] Comment on above: The drugs N-Acetylcy steine and Metamizole may falsely depress this assay. Reference Range HDL <40 mg/dL Low HDL Cholesterol HDL >or= 60 mg/dL High HDL Cholesterol Serum or plasma cholesterol in VLDL measurement (mass/volume)Ordered By: HEALTH ASSESSMENT on 06-22-2023 Cholesterol in VLDL [Mass/Vol] 72 mg/dL 5-40 [facility] Serum or plasma creatinine m easurement (mass/volume)Ordered By: HEALTH ASSESSMENT on 06-22-2023 Creatinine [Mass/Vol] 0.94 mg/dL 0.70-1.30 [facility] Comment on above: The validity of the calculated GFR & GFRAA in patients over 70 years has not been determined. Clinical correlation is essential. Serum or plasma low density lipoprotein (LDL) cholesterol measurement (mass/volume)Ordered By: HEALTH ASSESSMENT on 06-22-2023 Cholesterol in LDL [Mass/Vol] 67 mg/dL 0-130 [facility] Serum or plasma urea nitroge n measurement (mass/volume)Ordered By: HEALTH ASSESSMENT on 06-22-2023 Urea nitrogen [Mass/Vol] 14 mg/dL 7-18 [facility] Serum or plasma uric acid me asurement (mass/volume)Ordered By: HEALTH ASSESSMENT on 06-22-2023 Urate [Mass/Vol] 5.7 mg/dL 3.5-7.2 [facility] Comment on above: The drugs N-Acetylcy steine and Metamizole may falsely depress this assay. Thin prep Papanicolaou smear with manual screeningOrdered By: HEALTH ASSESSMENT on 06-22-2023 Thin prep Papanicolaou smear with manual screening 20 U/L 15-37 [facility] Comment on above: Slight Hemolysis, Re sult may be falsely increased. Thin prep Papanicolaou smear with manual screening 4 5-15 [facility] Absolute lymphocyte counton 06-16-2023 Lymphocytes Auto (Unsp spec) [#/Vol] 2.39 10*3/uL 0.83-4.51 [facility] Basophil percentageon 2022 Basophils/100 WBC (Bld) 0.9 % 0-1 [facility] Bilirubin [Mass/Vol] 0.60 mg/dL 0.20-1.00 [facility] Comment on above: For patients on eltr ombopag therapy, use of Dimension [place] TBIL is not recommended. Eosinophils/100 WBC (Bld) 2.4 % 0-5 [facility] Neutrophils (Bld) [#/Vol] 2.4 10*3/uL 2.0-7.7 [facility] Neutrophils/100 WBC (Bld) 42.7 % 47-70 [facility] Protein [Mass/Vol] 6.9 g/dL 6.4-8.2 [facility] WBC (Bld) [#/Vol] 5.5 10*3/uL 4.4-11.0 [facility] Blood erythrocytes count (nu mber/volume)on 06-16-2023 RBC (Bld) [#/Vol] 5.34 10*6/uL 4.6-6.2 [facility] Blood hemoglobin measurement (mass/volume)on 06-16-2023 Hemoglobin (Bld) [Mass/Vol] 15.9 g/dL 13.0-16.5 [facility] Blood lymphocytes/100 leukoc yteson 06-16-2023 Lymphocytes/100 WBC (Bld) 43.4 % 19-41 [facility] Blood monocytes/100 leukocyt eson 06-16-2023 Monocytes/100 WBC (Bld) 10.2 % 0-10 [facility] Blood platelet mean volumeon 06-16-2023 Platelet mean volume (Bld) [Entitic vol] 9.5 fL 6.2-12.0 [facility] Determination of erythrocyte mean corpuscular volume (MCV)on 06-16-2023 MCV (RBC) [Entitic vol] 91.9 fL 80-94 [facility] Direct bilirubinon 3 Bilirubin.direct [Mass/Vol] 0.13 mg/dL 0.00-0.30 [facility] Erythrocyte sedimentation ra sonya 06-16-2023 ESR (Bld) [Velocity] 2 mm/h 0-20 [facility] Hematocrit Auto (Bld) [Volum e fraction]on 06-16-2023 Hematocrit (Bld) [Volume fraction] 49.1 % 40-54 [facility] - Chemistry and C hemistry - challengeon 06-16-2023 ALP [Catalytic activity/Vol] 90 U/L 45-117 [facility] ALT [Catalytic activity/Vol] 26 U/L 16-61 [facility] Globulin (S) [Mass/Vol] 3.4 g/dL 2.2-4.2 [facility] - Hematology and Cell countson 06-16-2023 Erythrocyte distribution width (RBC) [Entitic vol] 44.7 fL 35.1-43.9 [facility] Erythrocyte distribution width (RBC) [Ratio] 13.2 % 11.6-14.6 [facility] Immature granulocytes/100 WBC (Bld) 0.400 % 0.0-0.9 [facility] Comment on above: IG% - Immature Granu locytes (promyelocytes, myelocytes and metamyelocytes) > 1% indicates that a LEFT SHIFT is Present. MCH (RBC) [Entitic mass] 29.8 pg 27.0-32.0 [facility] Nucleated RBC/100 WBC (Bld) [Ratio] 0 % 0-5 [facility] MCHC Auto (RBC) [Mass/Vol]on 06-16-2023 MCHC (RBC) [Mass/Vol] 32.4 g/dL 32-36 [facility] No Panel Informationon 06-16 Estimated GFR (MDRD) Amer 106 mL/min >60 [facility] Comment on above: GFR Calc Estimated GFR (MDRD) Non-Af Amer 87 mL/min >60 [facility] Comment on above: Non- GFR Calc Platelets bldon 06-16-2023 Platelets (Bld) [#/Vol] 318 10*3/uL 150-450 [facility] Serum or plasma C reactive p rotein measurement (mass/volume)on 06-16-2023 CRP [Mass/Vol] mg/L 0.0-3.0 [facility] Comment on above: C-Reactive Protein ( CRP) provides useful information for thediagnosis, therapy and monitoring of inflammatory processesand associated diseases. For the evaluation of Relative Riskfor Cardiovascular Disease, a High Sensitivity CRP (HSCRP)should be ordered. Serum or plasma albumin kendra urement (mass/volume)on 06-16-2023 Albumin [Mass/Vol] 3.5 g/dL 3.2-5.0 [facility] Serum or plasma creatinine m easurement (mass/volume)on 06-16-2023 Creatinine [Mass/Vol] 0.94 mg/dL 0.70-1.30 [facility] Comment on above: The validity of the calculated GFR & GFRAA in patients over 70 years has not been determined. Clinical correlation is essential. Thin prep Papanicolaou smear with manual screeningon 06-16-2023 Thin prep Papanicolaou smear with manual screening 16 U/L 15-37 [facility] Absolute lymphocyte countOrd ered By: Jose Caro on 03-09-2023 Lymphocytes Auto (Unsp spec) [#/Vol] 3.42 10*3/uL 0.83-4.51 [facility] Basophil percentageOrdered B y: Jose Caro on 03-09-2023 Basophils/100 WBC (Bld) 0.8 % 0-1 [facility] Bilirubin [Mass/Vol] 0.50 mg/dL 0.20-1.00 [facility] Comment on above: For patients on eltr ombopag therapy, use of Dimension [place] TBIL is not recommended. Eosinophils/100 WBC (Bld) 2.7 % 0-5 [facility] Neutrophils (Bld) [#/Vol] 2.4 10*3/uL 2.0-7.7 [facility] Neutrophils/100 WBC (Bld) 36.7 % 47-70 [facility] Protein [Mass/Vol] 7.5 g/dL 6.4-8.2 [facility] WBC (Bld) [#/Vol] 6.6 10*3/uL 4.4-11.0 [facility] Blood erythrocytes count (nu mber/volume)Ordered By: Jose Caro on 03-09-2023 RBC (Bld) [#/Vol] 5.52 10*6/uL 4.6-6.2 [facility] Blood hemoglobin measurement (mass/volume)Ordered By: Jose Caro on 03-09-2023 Hemoglobin (Bld) [Mass/Vol] 16.5 g/dL 13.0-16.5 [facility] Blood lymphocytes/100 leukoc ytesOrdered By: Jose Caro on 03-09-2023 Lymphocytes/100 WBC (Bld) 51.9 % 19-41 [facility] Blood monocytes/100 leukocyt esOrdered By: Jose Caro on 03-09-2023 Monocytes/100 WBC (Bld) 7.3 % 0-10 [facility] Blood platelet mean volumeOr dered By: Jose Caro on 03-09-2023 Platelet mean volume (Bld) [Entitic vol] 9.6 fL 6.2-12.0 [facility] Determination of erythrocyte mean corpuscular volume (MCV)Ordered By: Jose Caro on 03-09-2023 MCV (RBC) [Entitic vol] 92.4 fL 80-94 [facility] Direct bilirubinOrdered By: Jose Caro on 03-09-2023 Bilirubin.direct [Mass/Vol] 0.11 mg/dL 0.00-0.30 [facility] Erythrocyte sedimentation ra teOrdered By: Jose Caro on 03-09-2023 ESR (Bld) [Velocity] 4 mm/h 0-20 [facility] Hematocrit Auto (Bld) [Volum e fraction]Ordered By: Jose Caro on 03-09-2023 Hematocrit (Bld) [Volume fraction] 51.0 % 40-54 [facility] - Chemistry and C hemistry - challengeOrdered By: Jose Caro on 03-09-2023 ALP [Catalytic activity/Vol] 100 U/L 45-117 [facility] ALT [Catalytic activity/Vol] 27 U/L 16-61 [facility] Globulin (S) [Mass/Vol] 3.9 g/dL 2.2-4.2 [facility] - Hematology and Cell countsOrdered By: Jose Caro on 03-09-2023 Erythrocyte distribution width (RBC) [Entitic vol] 43.8 fL 35.1-43.9 [facility] Erythrocyte distribution width (RBC) [Ratio] 12.9 % 11.6-14.6 [facility] Immature granulocytes/100 WBC (Bld) 0.600 % 0.0-0.9 [facility] Comment on above: IG% - Immature Granu locytes (promyelocytes, myelocytes and metamyelocytes) > 1% indicates that a LEFT SHIFT is Present. MCH (RBC) [Entitic mass] 29.9 pg 27.0-32.0 [facility] Nucleated RBC/100 WBC (Bld) [Ratio] 0 % 0-5 [facility] MCHC Auto (RBC) [Mass/Vol]Or dered By: Jose Caro on 03-09-2023 MCHC (RBC) [Mass/Vol] 32.4 g/dL 32-36 [facility] No Panel InformationOrdered By: Jose Caro on 03-09-2023 Estimated GFR (MDRD) Amer 109 mL/min >60 [facility] Comment on above: GFR Calc Estimated GFR (MDRD) Non-Af Amer 90 mL/min >60 [facility] Comment on above: Non- GFR Calc Platelets bldOrdered By: Nirmal Caro on 03-09-2023 Platelets (Bld) [#/Vol] 365 10*3/uL 150-450 [facility] Serum or plasma C reactive p rotein measurement (mass/volume)Ordered By: Jose Caro on 03-09-2023 CRP [Mass/Vol] 7.78 mg/L 0.0-3.0 [facility] Comment on above: C-Reactive Protein ( CRP) provides useful information for thediagnosis, therapy and monitoring of inflammatory processesand associated diseases. For the evaluation of Relative Riskfor Cardiovascular Disease, a High Sensitivity CRP (HSCRP)should be ordered. Serum or plasma albumin kendra urement (mass/volume)Ordered By: Jose Caro on 03-09-2023 Albumin [Mass/Vol] 3.6 g/dL 3.2-5.0 [facility] Serum or plasma creatinine m easurement (mass/volume)Ordered By: Jose Caro on 03-09-2023 Creatinine [Mass/Vol] 0.91 mg/dL 0.70-1.30 [facility] Comment on above: The validity of the calculated GFR & GFRAA in patients over 70 years has not been determined. Clinical correlation is essential. Thin prep Papanicolaou smear with manual screeningOrdered By: Jose Caro on 03-09-2023 Thin prep Papanicolaou smear with manual screening 24 U/L 15-37 [facility] Basophil percentageOrdered B y: Ash Mcpherson on 03-02-2023 Chloride [Moles/Vol] 108 mmol/L 98-107 [facility] Cholesterol [Mass/Vol] 179 mg/dL <200 [facility] Comment on above: <200 mg/dL Desirable 200-240 mg/dL Borderline >240 mg/dL High Risk Glucose [Mass/Vol] 99 mg/dL 74-106 [facility] Potassium [Moles/Vol] 4.3 mmol/L 3.5-5.1 [facility] Sodium [Moles/Vol] 140 mmol/L 136-145 [facility] Triglyceride [Mass/Vol] 268 mg/dL <199 [facility] Comment on above: The drugs N-Acetylcy steine and Metamizole may falsely depress this assay.Serum Triglycerides Reference Interval Normal <150 mg/dL Borderline high 150 - 199 mg/dL High 200 - 499 mg/dL Very High > or = 500 mg/dL Laboratory - Chemistry and C hemistry - challengeOrdered By: Ash Mcpherson on 03-02-2023 CO2 [Moles/Vol] 28.0 mmol/L 21.0-32.0 [facility] Free T4 [Mass/Vol] 1.04 ng/dL 0.76-1.46 [facility] Urea nitrogen/Creatinine [Mass ratio] 15.8 mg/mg 10-20 [facility] No Panel InformationOrdered By: Ash Mcpherson on 03-02-2023 Estimated GFR (MDRD) Amer 105 mL/min >60 [facility] Comment on above: GFR Calc Estimated GFR (MDRD) Non-Af Amer 87 mL/min >60 [facility] Comment on above: Non- GFR Calc Free Triiodothyronine (T3) pg/dL 2.5 pg/mL 2.18-3.98 [facility] Prostate Specific Antigen Screen 2.12 ng/mL 0.00-4.00 [facility] Comment on above: This test was perfor med using the TPSA assay method for the[facility]. Values obtained with differentassay methods cannot be used interchangably.When changing PSA assays in the course of monitoring apatient, additional sequential testing should be carriedout to confirm baseline values. Thyroid Stimulating Hormone (TSH) 2.73 uIU/mL 0.358-3.74 [facility] Serum or plasma calcium kendra urement (mass/volume)Ordered By: Ash Mcpherson on 03-02-2023 Calcium [Mass/Vol] 8.8 mg/dL 8.5-10.1 [facility] Serum or plasma cholesterol in HDL measurement (mass/volume)Ordered By: Ash Mcpherson on 03-02-2023 Cholesterol in HDL [Mass/Vol] 40 mg/dL >40 [facility] Comment on above: The drugs N-Acetylcy steine and Metamizole may falsely depress this assay. Reference Range HDL <40 mg/dL Low HDL Cholesterol HDL >or= 60 mg/dL High HDL Cholesterol Serum or plasma cholesterol in VLDL measurement (mass/volume)Ordered By: Ash Mcpherson on 03-02-2023 Cholesterol in VLDL [Mass/Vol] 54 mg/dL 5-40 [facility] Serum or plasma creatinine m easurement (mass/volume)Ordered By: Ash Mcpherson on 03-02-2023 Creatinine [Mass/Vol] 0.95 mg/dL 0.70-1.30 [facility] Comment on above: The validity of the calculated GFR & GFRAA in patients over 70 years has not been determined. Clinical correlation is essential. Serum or plasma low density lipoprotein (LDL) cholesterol measurement (mass/volume)Ordered By: Ash Mcpherson on 03-02-2023 Cholesterol in LDL [Mass/Vol] 85 mg/dL 0-130 [facility] Serum or plasma urea nitroge n measurement (mass/volume)Ordered By: Ash Mcpherson on 03-02-2023 Urea nitrogen [Mass/Vol] 15 mg/dL 7-18 [facility] Thin prep Papanicolaou smear with manual screeningOrdered By: Ash Mcpherson on 03-02-2023 Thin prep Papanicolaou smear with manual screening 4 5-15 [facility] Absolute lymphocyte counton 12-06-2022 Lymphocytes Auto (Unsp spec) [#/Vol] 2.07 10*3/uL 0.83-4.51 [facility] Basophil percentageon 2022 Basophils/100 WBC (Bld) 0.6 % 0-1 [facility] Bilirubin [Mass/Vol] 0.50 mg/dL 0.20-1.00 [facility] Comment on above: For patients on eltr ombopag therapy, use of Dim[place] TBIL is not recommended. Eosinophils/100 WBC (Bld) 2.0 % 0-5 [facility] Neutrophils (Bld) [#/Vol] 4.3 10*3/uL 2.0-7.7 [facility] Neutrophils/100 WBC (Bld) 60.1 % 47-70 [facility] Protein [Mass/Vol] 7.0 g/dL 6.4-8.2 [facility] WBC (Bld) [#/Vol] 7.1 10*3/uL 4.4-11.0 [facility] Blood erythrocytes count (nu mber/volume)on 12-06-2022 RBC (Bld) [#/Vol] 5.17 10*6/uL 4.6-6.2 [facility] Blood hemoglobin measurement (mass/volume)on 12-06-2022 Hemoglobin (Bld) [Mass/Vol] 15.9 g/dL 13.0-16.5 [facility] Blood lymphocytes/100 leukoc yteson 12-06-2022 Lymphocytes/100 WBC (Bld) 29.2 % 19-41 [facility] Blood monocytes/100 leukocyt eson 12-06-2022 Monocytes/100 WBC (Bld) 7.7 % 0-10 [facility] Blood platelet mean volumeon 12-06-2022 Platelet mean volume (Bld) [Entitic vol] 9.4 fL 6.2-12.0 [facility] Determination of erythrocyte mean corpuscular volume (MCV)on 12-06-2022 MCV (RBC) [Entitic vol] 91.3 fL 80-94 [facility] Direct bilirubinon Bilirubin.direct [Mass/Vol] 0.12 mg/dL 0.00-0.30 [facility] Erythrocyte sedimentation ra sonay 12-06-2022 ESR (Bld) [Velocity] 2 mm/h 0-20 [facility] Hematocrit Auto (Bld) [Volum e fraction]on 12-06-2022 Hematocrit (Bld) [Volume fraction] 47.2 % 40-54 [facility] - Chemistry and C hemistry - challengeon 12-06-2022 ALP [Catalytic activity/Vol] 95 U/L 45-117 [facility] ALT [Catalytic activity/Vol] 35 U/L 16-61 [facility] Globulin (S) [Mass/Vol] 3.4 g/dL 2.2-4.2 [facility] - Hematology and Cell countson 12-06-2022 Erythrocyte distribution width (RBC) [Entitic vol] 42.4 fL 35.1-43.9 [facility] Erythrocyte distribution width (RBC) [Ratio] 12.6 % 11.6-14.6 [facility] Immature granulocytes/100 WBC (Bld) 0.400 % 0.0-0.9 [facility] Comment on above: IG% - Immature Granu locytes (promyelocytes, myelocytes and metamyelocytes) > 1% indicates that a LEFT SHIFT is Present. MCH (RBC) [Entitic mass] 30.8 pg 27.0-32.0 [facility] Nucleated RBC/100 WBC (Bld) [Ratio] 0 % 0-5 [facility] MCHC Auto (RBC) [Mass/Vol]on 12-06-2022 MCHC (RBC) [Mass/Vol] 33.7 g/dL 32-36 [facility] No Panel Informationon 12-06 Estimated GFR (MDRD) Amer 100 mL/min >60 [facility] Comment on above: GFR Calc Estimated GFR (MDRD) Non-Af Amer 83 mL/min >60 [facility] Comment on above: Non- GFR Calc Platelets bldon 12-06-2022 Platelets (Bld) [#/Vol] 336 10*3/uL 150-450 [facility] Serum or plasma C reactive p rotein measurement (mass/volume)on 12-06-2022 CRP [Mass/Vol] mg/L 0.0-3.0 [facility] Comment on above: C-Reactive Protein ( CRP) provides useful information for thediagnosis, therapy and monitoring of inflammatory processesand associated diseases. For the evaluation of Relative Riskfor Cardiovascular Disease, a High Sensitivity CRP (HSCRP)should be ordered. Serum or plasma albumin kendra urement (mass/volume)on 12-06-2022 Albumin [Mass/Vol] 3.6 g/dL 3.2-5.0 [facility] Serum or plasma creatinine m easurement (mass/volume)on 12-06-2022 Creatinine [Mass/Vol] 0.98 mg/dL 0.70-1.30 [facility] Comment on above: The validity of the calculated GFR & GFRAA in patients over 70 years has not been determined. Clinical correlation is essential. Thin prep Papanicolaou smear with manual screeningon 12-06-2022 Thin prep Papanicolaou smear with manual screening 27 U/L 15-37 [facility] Comment on above: Slight Hemolysis, Re sult may be falsely increased. Albumin Elph [Mass/Vol]Order ed By: Dr. Caruso on 10-29-2022 Albumin [Mass/Vol] 3.9 g/dL 2.9-4.4 [facility] Interpretation of serum or p lasma protein pattern by immunofixation (narrative resultOrdered By: Dr. Caruso on 10-29-2022 Protein Fractions Immunofixation Omer [Interp] See comment [facility] Comment on above: NOT OBSERVED No Panel InformationOrdered By: Dr. Caruso on 10-29-2022 Addendum Document Comment . [facility] Comment on above: Protein electrophore sis scan will follow via computer,mail, or service planner delivery.Performed at: [facility] [place] [id number] Director: Klever Ortiz PhD, Phone: [phone] Serum bydcj-[id number] measu rement by electrophoresisOrdered By: Dr. Caruso on 10-29-2022 Alpha 1 globulin Elph [Mass/Vol] 0.2 g/dL 0.0-0.4 [facility] Alpha 1 globulin Elph [Mass/Vol] 0.6 g/dL 0.4-1.0 [facility] Serum globulin measurement ( mass/volume)Ordered By: Dr. Caruso on 10-29-2022 Globulin (S) [Mass/Vol] 2.9 g/dL 2.2-3.9 [facility] Serum or plasma IgA measurem ent (mass/volume)Ordered By: Dr. Caruso on 10-29-2022 IgA [Mass/Vol] 185 mg/dL 90-386 [facility] Serum or plasma IgG measurem ent (mass/volume)Ordered By: Dr. Caruso on 10-29-2022 IgG [Mass/Vol] 1199 mg/dL 603-1613 [facility] Serum or plasma IgM measurem ent (mass/volume)Ordered By: Dr. Caruso on 10-29-2022 IgM [Mass/Vol] 106 mg/dL 20-172 [facility] Serum or plasma beta globuli n measurement by electrophoresis (mass/volume)Ordered By: Dr. Caruso on 10-29-2022 Beta globulin Elph [Mass/Vol] 0.9 g/dL 0.7-1.3 [facility] Serum or plasma gamma globul in measurement by electrophoresis (mass/volume)Ordered By: Dr. Caruso on 10-29-2022 Gamma globulin Elph [Mass/Vol] 1.2 g/dL 0.4-1.8 [facility] Serum or plasma immunoelectr ophoresis interpretation (nominal result)Ordered By: Dr. Caruso on 10-29-2022 Interpretation IEP [Interp] Comment . [facility] Comment on above: No monoclonality det ected. Thin prep Papanicolaou smear with manual screeningOrdered By: Dr. Caruso on 10-29-2022 Thin prep Papanicolaou smear with manual screening 1.4 0.7-1.7 [facility] Total protein bloodOrdered B y: Dr. Caruso on 10-29-2022 Protein [Mass/Vol] 6.8 g/dL 6.0-8.5 [facility] Absolute lymphocyte countOrd ered By: Dr. Caro on 09-07-2022 Lymphocytes Auto (Unsp spec) [#/Vol] 2.53 10*3/uL 0.83-4.51 [facility] Basophil percentageOrdered B y: Dr. Caro on 09-07-2022 Basophils/100 WBC (Bld) 0.7 % 0-1 [facility] Bilirubin [Mass/Vol] 0.40 mg/dL 0.20-1.00 [facility] Comment on above: For patients on eltr ombopag therapy, use of Dim[place] TBIL is not recommended. Eosinophils/100 WBC (Bld) 2.0 % 0-5 [facility] Neutrophils (Bld) [#/Vol] 4.1 10*3/uL 2.0-7.7 [facility] Neutrophils/100 WBC (Bld) 53.8 % 47-70 [facility] Protein [Mass/Vol] 7.2 g/dL 6.4-8.2 [facility] WBC (Bld) [#/Vol] 7.5 10*3/uL 4.4-11.0 [facility] Blood erythrocytes count (nu mber/volume)Ordered By: Dr. Caro on 09-07-2022 RBC (Bld) [#/Vol] 5.35 10*6/uL 4.6-6.2 [facility] Blood hemoglobin measurement (mass/volume)Ordered By: Dr. Caro on 09-07-2022 Hemoglobin (Bld) [Mass/Vol] 15.9 g/dL 13.0-16.5 [facility] Blood lymphocytes/100 leukoc ytesOrdered By: Dr. Caro on 09-07-2022 Lymphocytes/100 WBC (Bld) 33.6 % 19-41 [facility] Blood monocytes/100 leukocyt esOrdered By: Dr. Caro on 09-07-2022 Monocytes/100 WBC (Bld) 9.2 % 0-10 [facility] Blood platelet mean volumeOr dered By: Dr. Caro on 09-07-2022 Platelet mean volume (Bld) [Entitic vol] 9.1 fL 6.2-12.0 [facility] Determination of erythrocyte mean corpuscular volume (MCV)Ordered By: Dr. Caro on 09-07-2022 MCV (RBC) [Entitic vol] 90.8 fL 80-94 [facility] Direct bilirubinOrdered By: Dr. Caro on 09-07-2022 Bilirubin.direct [Mass/Vol] 0.13 mg/dL 0.00-0.30 [facility] Erythrocyte sedimentation ra teOrdered By: Dr. Caro on 09-07-2022 ESR (Bld) [Velocity] 6 mm/h 0-20 [facility] Hematocrit Auto (Bld) [Volum e fraction]Ordered By: Dr. Caro on 09-07-2022 Hematocrit (Bld) [Volume fraction] 48.6 % 40-54 [facility] - Chemistry and C hemistry - challengeOrdered By: Dr. Caro on 09-07-2022 ALP [Catalytic activity/Vol] 92 U/L 45-117 [facility] ALT [Catalytic activity/Vol] 32 U/L 16-61 [facility] Globulin (S) [Mass/Vol] 3.6 g/dL 2.2-4.2 [facility] - Hematology and Cell countsOrdered By: Dr. Caro on 09-07-2022 Erythrocyte distribution width (RBC) [Entitic vol] 44.4 fL 35.1-43.9 [facility] Erythrocyte distribution width (RBC) [Ratio] 13.2 % 11.6-14.6 [facility] Immature granulocytes/100 WBC (Bld) 0.700 % 0.0-0.9 [facility] Comment on above: IG% - Immature Granu locytes (promyelocytes, myelocytes and metamyelocytes) > 1% indicates that a LEFT SHIFT is Present. MCH (RBC) [Entitic mass] 29.7 pg 27.0-32.0 [facility] Nucleated RBC/100 WBC (Bld) [Ratio] 0 % 0-5 [facility] MCHC Auto (RBC) [Mass/Vol]Or dered By: Dr. Caro on 09-07-2022 MCHC (RBC) [Mass/Vol] 32.7 g/dL 32-36 [facility] No Panel InformationOrdered By: Dr. Caro on 09-07-2022 Estimated GFR (MDRD) Amer 111 mL/min >60 [facility] Comment on above: GFR Calc Estimated GFR (MDRD) Non-Af Amer 92 mL/min >60 [facility] Comment on above: Non- GFR Calc Platelets bldOrdered By: Dr. Caro on 09-07-2022 Platelets (Bld) [#/Vol] 351 10*3/uL 150-450 [facility] Serum or plasma C reactive p rotein measurement (mass/volume)Ordered By: Dr. Caro on 09-07-2022 CRP [Mass/Vol] mg/L 0.0-3.0 [facility] Comment on above: C-Reactive Protein ( CRP) provides useful information for thediagnosis, therapy and monitoring of inflammatory processesand associated diseases. For the evaluation of Relative Riskfor Cardiovascular Disease, a High Sensitivity CRP (HSCRP)should be ordered. Serum or plasma albumin kendra urement (mass/volume)Ordered By: Dr. Caro on 09-07-2022 Albumin [Mass/Vol] 3.6 g/dL 3.2-5.0 [facility] Serum or plasma creatinine m easurement (mass/volume)Ordered By: Dr. Caro on 09-07-2022 Creatinine [Mass/Vol] 0.90 mg/dL 0.70-1.30 [facility] Comment on above: The validity of the calculated GFR & GFRAA in patients over 70 years has not been determined. Clinical correlation is essential. Thin prep Papanicolaou smear with manual screeningOrdered By: Dr. Caro on 09-07-2022 Thin prep Papanicolaou smear with manual screening 22 U/L 15-37 [facility] Laboratory - Microbiology an d Antimicrobial susceptibilityon 08-18-2022 SARS-CoV-2 (COVID-19) RNA ANGÉLICA+probe Ql (Unsp spec) Detected [facility] No Panel Informationon 08-18 Influenza Types A,B Rapid (Clinic) Not detected [facility] Albumin Elph [Mass/Vol]Order ed By: Dr. Caruso on 07-08-2022 Albumin [Mass/Vol] 3.8 g/dL 2.9-4.4 [facility] Basophil percentageOrdered B y: Dr. aCruso on 07-08-2022 Basophil percentage Comment . [facility] Comment on above: No monoclonality det ected.Performed at: [facility] [id number] Director: Klever Ortiz PhD, Phone: [phone] Interpretation of serum or p lasma protein pattern by immunofixation (narrative resultOrdered By: Dr. Caruso on 07-08-2022 Protein Fractions Immunofixation Omer [Interp] See comment [facility] Comment on above: Result: Not Observed No Panel InformationOrdered By: Dr. Caruso on 07-08-2022 Addendum Document Comment . [facility] Comment on above: Protein electrophore sis scan will follow via computer,mail, or service planner delivery. Serum [id number] measu rement by electrophoresisOrdered By: Dr. Caruso on 07-08-2022 Alpha 1 globulin Elph [Mass/Vol] 0.2 g/dL 0.0-0.4 [facility] Alpha 1 globulin Elph [Mass/Vol] 0.6 g/dL 0.4-1.0 [facility] Serum globulin measurement ( mass/volume)Ordered By: Dr. Caruso on 07-08-2022 Globulin (S) [Mass/Vol] 2.8 g/dL 2.2-3.9 [facility] Serum or plasma IgA measurem ent (mass/volume)Ordered By: Dr. Caruso on 07-08-2022 IgA [Mass/Vol] 187 mg/dL 90-386 [facility] Serum or plasma IgG measurem ent (mass/volume)Ordered By: Dr. Caruso on 07-08-2022 IgG [Mass/Vol] 1132 mg/dL [phone] [facility] Serum or plasma IgM measurem ent (mass/volume)Ordered By: Dr. Caruso on 07-08-2022 IgM [Mass/Vol] 97 mg/dL 20-172 [facility] Serum or plasma beta globuli n measurement by electrophoresis (mass/volume)Ordered By: Dr. Caruso on 07-08-2022 Beta globulin Elph [Mass/Vol] 0.8 g/dL 0.7-1.3 [facility] Serum or plasma gamma globul in measurement by electrophoresis (mass/volume)Ordered By: Dr. Caruso on 07-08-2022 Gamma globulin Elph [Mass/Vol] 1.2 g/dL 0.4-1.8 [facility] Serum or plasma immunoelectr ophoresis interpretation (nominal result)Ordered By: Dr. Caruso on 07-08-2022 Interpretation IEP [Interp] Comment: . [facility] Comment on above: Presence of monoclon al protein is unclear at this time. Suggestrepeat in 3 to 6 months if clinically indicated. Thin prep Papanicolaou smear with manual screeningOrdered By: Dr. Caruso on 07-08-2022 Thin prep Papanicolaou smear with manual screening 1.4 0.7-1.7 [facility] Total protein bloodOrdered B y: Dr. Caruso on 07-08-2022 Protein [Mass/Vol] 6.6 g/dL 6.0-8.5 [facility] Basophil percentageOrdered B y: Dr. Caruso on 06-30-2022 Chloride [Moles/Vol] 107 mmol/L 98-107 [facility] Glucose [Mass/Vol] 101 mg/dL 74-106 [facility] Comment on above: Fasting Glucose resu lt from 100 to 125 mg/dL suggests IMPAIRED HOMEOSTASIS per A.D.A. criteria. Potassium [Moles/Vol] 4.1 mmol/L 3.5-5.1 [facility] Sodium [Moles/Vol] 139 mmol/L 136-145 [facility] Iron measurement (mass/mass) Ordered By: Dr. Caruso on 06-30-2022 Iron (Unsp spec) [Mass/Mass] 129 ug/dL 65-175 [facility] Laboratory - Chemistry and C hemistry - challengeOrdered By: Dr. Caruso on 06-30-2022 CO2 [Moles/Vol] 30.0 mmol/L 21.0-32.0 [facility] Cobalamin (Vitamin B12) [Mass/Vol] 342 pg/mL 211-911 [facility] Free T4 [Mass/Vol] 1.24 ng/dL 0.76-1.46 [facility] Urea nitrogen/Creatinine [Mass ratio] 13.9 mg/mg 10-20 [facility] No Panel InformationOrdered By: Dr. Caruso on 06-30-2022 Estimated GFR (MDRD) Amer 106 mL/min >60 [facility] Comment on above: GFR Calc Estimated GFR (MDRD) Non-Af Amer 88 mL/min >60 [facility] Comment on above: Non- GFR Calc Free Lambda Light Chains, Quant 15.2 mg/L 5.7-26.3 [facility] Thyroid Stimulating Hormone (TSH) 2.59 uIU/mL 0.358-3.74 [facility] Whole Blood Vitamin B1 Level 217.6 nmol/L 66.5-200.0 [facility] Comment on above: Performed at: - [address] [id number] Director: Klever Ortiz PhD, Phone: [phone] at: [facility] [address] [id number] Director: Myrna Disla MD, Phone: [phone] Serum immunoglobulin kappa l ight chains/immunoglobulin lambda light chains mass ratioOrdered By: Dr. Caruso on 06-30-2022 Immunoglobulin light chains.kappa/Immunoglob ulin light chains.lambda (S) [Mass ratio] 1.29 0.26-1.65 [facility] Serum or plasma calcium kendra urement (mass/volume)Ordered By: Dr. Caruso on 06-30-2022 Calcium [Mass/Vol] 8.6 mg/dL 8.5-10.1 [facility] Serum or plasma creatinine m easurement (mass/volume)Ordered By: Dr. Caruso on 06-30-2022 Creatinine [Mass/Vol] 0.94 mg/dL 0.70-1.30 [facility] Comment on above: The validity of the calculated GFR & GFRAA in patients over 70 years has not been determined. Clinical correlation is essential. Serum or plasma ferritin lito surement (mass/volume)Ordered By: Dr. Caruso on 06-30-2022 Ferritin [Mass/Vol] 61 ng/mL [id number] [facility] Serum or plasma folate measu rement (mass/volume)Ordered By: Dr. Caruso on 06-30-2022 Folate [Mass/Vol] 85.20 ng/mL 3.1-55.4 [facility] Serum or plasma immunoglobul in kappa light chains measurement (mass/volume)Ordered By: Dr. Caruso on 06-30-2022 Immunoglobulin light chains.kappa [Mass/Vol] 19.6 mg/L 3.3-19.4 [facility] Serum or plasma urea nitroge n measurement (mass/volume)Ordered By: Dr. Caruso on 06-30-2022 Urea nitrogen [Mass/Vol] 13 mg/dL 7-18 [facility] Thin prep Papanicolaou smear with manual screeningOrdered By: Dr. Caruso on 06-30-2022 Thin prep Papanicolaou smear with manual screening 2 5-15 [facility] Absolute lymphocyte counton 06-09-2022 Lymphocytes Auto (Unsp spec) [#/Vol] 2.39 10*3/uL 0.83-4.51 [facility] Basophil percentageon 2021 Basophils/100 WBC (Bld) 0.6 % 0-1 [facility] Bilirubin [Mass/Vol] 0.80 mg/dL 0.20-1.00 [facility] Comment on above: For patients on eltr ombopag therapy, use of Dimension [place] TBIL is not recommended. Eosinophils/100 WBC (Bld) 2.2 % 0-5 [facility] Neutrophils (Bld) [#/Vol] 3.1 10*3/uL 2.0-7.7 [facility] Neutrophils/100 WBC (Bld) 48.6 % 47-70 [facility] Protein [Mass/Vol] 7.2 g/dL 6.4-8.2 [facility] WBC (Bld) [#/Vol] 6.4 10*3/uL 4.4-11.0 [facility] Blood erythrocytes count (nu mber/volume)on 06-09-2022 RBC (Bld) [#/Vol] 5.32 10*6/uL 4.6-6.2 [facility] Blood hemoglobin measurement (mass/volume)on 06-09-2022 Hemoglobin (Bld) [Mass/Vol] 15.8 g/dL 13.0-16.5 [facility] Blood lymphocytes/100 leukoc yteson 06-09-2022 Lymphocytes/100 WBC (Bld) 37.5 % 19-41 [facility] Blood monocytes/100 leukocyt eson 06-09-2022 Monocytes/100 WBC (Bld) 10.8 % 0-10 [facility] Blood platelet mean volumeon 06-09-2022 Platelet mean volume (Bld) [Entitic vol] 9.5 fL 6.2-12.0 [facility] Determination of erythrocyte mean corpuscular volume (MCV)on 06-09-2022 MCV (RBC) [Entitic vol] 90.2 fL 80-94 [facility] Direct bilirubinon Bilirubin.direct [Mass/Vol] 0.14 mg/dL 0.00-0.30 [facility] Erythrocyte sedimentation ra sonya 06-09-2022 ESR (Bld) [Velocity] 4 mm/h 0-20 [facility] Hematocrit Auto (Bld) [Volum e fraction]on 06-09-2022 Hematocrit (Bld) [Volume fraction] 48.0 % 40-54 [facility] Laboratory - Chemistry and C hemistry - challengeon 06-09-2022 ALP [Catalytic activity/Vol] 89 U/L 45-117 [facility] ALT [Catalytic activity/Vol] 29 U/L 16-61 [facility] Globulin (S) [Mass/Vol] 3.7 g/dL 2.2-4.2 [facility] Laboratory - Hematology and Cell countson 06-09-2022 Erythrocyte distribution width (RBC) [Entitic vol] 43.0 fL 35.1-43.9 [facility] Erythrocyte distribution width (RBC) [Ratio] 13.1 % 11.6-14.6 [facility] Immature granulocytes/100 WBC (Bld) 0.300 % 0.0-0.9 [facility] Comment on above: IG% - Immature Granu locytes (promyelocytes, myelocytes and metamyelocytes) > 1% indicates that a LEFT SHIFT is Present. MCH (RBC) [Entitic mass] 29.7 pg 27.0-32.0 [facility] Nucleated RBC/100 WBC (Bld) [Ratio] 0 % 0-5 [facility] MCHC Auto (RBC) [Mass/Vol]on 06-09-2022 MCHC (RBC) [Mass/Vol] 32.9 g/dL 32-36 [facility] No Panel Informationon 06-09 Estimated GFR (MDRD) Amer 122 mL/min >60 [facility] Comment on above: GFR Calc Estimated GFR (MDRD) Non-Af Amer 101 mL/min >60 [facility] Comment on above: Non- GFR Calc Platelets bldon 06-09-2022 Platelets (Bld) [#/Vol] 334 10*3/uL 150-450 [facility] Serum or plasma C reactive p rotein measurement (mass/volume)on 06-09-2022 CRP [Mass/Vol] mg/L 0.0-3.0 [facility] Comment on above: C-Reactive Protein ( CRP) provides useful information for thediagnosis, therapy and monitoring of inflammatory processesand associated diseases. For the evaluation of Relative Riskfor Cardiovascular Disease, a High Sensitivity CRP (HSCRP)should be ordered. Serum or plasma albumin kendra urement (mass/volume)on 06-09-2022 Albumin [Mass/Vol] 3.5 g/dL 3.2-5.0 [facility] Serum or plasma creatinine m easurement (mass/volume)on 06-09-2022 Creatinine [Mass/Vol] 0.83 mg/dL 0.70-1.30 [facility] Comment on above: The validity of the calculated GFR & GFRAA in patients over 70 years has not been determined. Clinical correlation is essential. Thin prep Papanicolaou smear with manual screeningon 06-09-2022 Thin prep Papanicolaou smear with manual screening 22 U/L 15-37 [facility] Absolute lymphocyte counton 03-09-2022 Lymphocytes Auto (Unsp spec) [#/Vol] 2.05 10*3/uL 0.83-4.51 [facility] Work Phone: Basophil percentageon 2021 Basophils/100 WBC (Bld) 0.5 % 0-1 [facility] Work Phone: Bilirubin [Mass/Vol] 0.80 mg/dL 0.20-1.00 [facility] Work Phone: Comment on above: For patients on eltr ombopag therapy, use of [place] TBIL is not recommended. Eosinophils/100 WBC (Bld) 2.4 % 0-5 [facility] Work Phone: Neutrophils (Bld) [#/Vol] 3.4 10*3/uL 2.0-7.7 [facility] Work Phone: Neutrophils/100 WBC (Bld) 54.2 % 47-70 [facility] Work Phone: Protein [Mass/Vol] 7.3 g/dL 6.4-8.2 [facility] Work Phone: [phone] WBC (Bld) [#/Vol] 6.3 10*3/uL 4.4-11.0 [facility] Work Phone: Blood erythrocytes count (nu mber/volume)on 03-09-2022 RBC (Bld) [#/Vol] 5.35 10*6/uL 4.6-6.2 [facility] Work Phone: Blood hemoglobin measurement (mass/volume)on 03-09-2022 Hemoglobin (Bld) [Mass/Vol] 15.7 g/dL 13.0-16.5 [facility] Work Phone: Blood lymphocytes/100 leukoc yteson 03-09-2022 Lymphocytes/100 WBC (Bld) 32.7 % 19-41 [facility] Work Phone: Blood monocytes/100 leukocyt eson 03-09-2022 Monocytes/100 WBC (Bld) 9.9 % 0-10 [facility] Work Phone: Blood platelet mean volumeon 03-09-2022 Platelet mean volume (Bld) [Entitic vol] 9.7 fL 6.2-12.0 [facility] Work Phone: Determination of erythrocyte mean corpuscular volume (MCV)on 03-09-2022 MCV (RBC) [Entitic vol] 89.2 fL 80-94 [facility] Work Phone: Direct bilirubinon 2 Bilirubin.direct [Mass/Vol] 0.20 mg/dL 0.00-0.30 [facility] Work Phone: Erythrocyte sedimentation ra sonya 03-09-2022 ESR (Bld) [Velocity] 3 mm/h 0-[address] [facility] [address] Work Phone: Hematocrit Auto (Bld) [Volum e fraction]on 03-09-2022 Hematocrit (Bld) [Volume fraction] 47.7 % 40-54 [facility] Work Phone: Laboratory - Chemistry and C hemistry - challengeon 03-09-2022 ALP [Catalytic activity/Vol] 86 U/L 45-117 [facility] Work Phone: ALT [Catalytic activity/Vol] 24 U/L 16-61 [facility] Work Phone: Globulin (S) [Mass/Vol] 3.6 g/dL 2.2-4.2 [facility] Work Phone: Laboratory - Hematology and Cell countson 03-09-2022 Erythrocyte distribution width (RBC) [Entitic vol] 44.3 fL 35.1-43.9 [facility] Work Phone: Erythrocyte distribution width (RBC) [Ratio] 13.6 % 11.6-14.6 [facility] Work Phone: Immature granulocytes/100 WBC (Bld) 0.300 % 0.0-0.9 [facility] Work Phone: Comment on above: IG% - Immature Granu locytes (promyelocytes, myelocytes and metamyelocytes) > 1% indicates that a LEFT SHIFT is Present. MCH (RBC) [Entitic mass] 29.3 pg 27.0-32.0 [facility] Work Phone: Nucleated RBC/100 WBC (Bld) [Ratio] 0 % 0-5 [facility] Work Phone: MCHC Auto (RBC) [Mass/Vol]on 03-09-2022 MCHC (RBC) [Mass/Vol] 32.9 g/dL 32-36 [facility] Work Phone: No Panel Informationon 03-09 Estimated GFR (MDRD) Amer 108 mL/min >60 [facility] Work Phone: Comment on above: GFR Calc Estimated GFR (MDRD) Non-Af Amer 89 mL/min >60 [facility] Work Phone: Comment on above: Non- GFR Calc Platelets bldon 03-09-2022 Platelets (Bld) [#/Vol] 346 10*3/uL 150-450 [facility] Work Phone: Serum or plasma C reactive p rotein measurement (mass/volume)on 03-09-2022 CRP [Mass/Vol] 5.23 mg/L 0.0-3.0 [facility] Work Phone: Comment on above: C-Reactive Protein ( CRP) provides useful information for thediagnosis, therapy and monitoring of inflammatory processesand associated diseases. For the evaluation of Relative Riskfor Cardiovascular Disease, a High Sensitivity CRP (HSCRP)should be ordered. Serum or plasma albumin kendra urement (mass/volume)on 03-09-2022 Albumin [Mass/Vol] 3.7 g/dL 3.2-5.0 [facility] Work Phone: Serum or plasma creatinine m easurement (mass/volume)on 03-09-2022 Creatinine [Mass/Vol] 0.93 mg/dL 0.70-1.30 [facility] Work Phone: Comment on above: The validity of the calculated GFR & GFRAA in patients over 70 years has not been determined. Clinical correlation is essential. Thin prep Papanicolaou smear with manual screeningon 03-09-2022 Thin prep Papanicolaou smear with manual screening 20 U/L 15-37 [facility] Work Phone: Absolute lymphocyte counton 03-02-2022 Lymphocytes Auto (Unsp spec) [#/Vol] 2.14 10*3/uL 0.83-4.51 [facility] Work Phone: Absolute reticulocyte counto n 03-02-2022 Reticulocytes (Bld) [#/Vol] 0.00 10*3/uL 0-5 [facility] Work Phone: Basophil percentageon 2021 Basophil percentage 3.2 mg/dL 2.5-4.9 [facility] Work Phone: Bilirubin [Mass/Vol] 0.70 mg/dL 0.20-1.00 [facility] Work Phone: Comment on above: For patients on eltr ombopag therapy, use of [place] TBIL is not recommended. Chloride [Moles/Vol] 106 mmol/L 98-107 [facility] Work Phone: Cholesterol [Mass/Vol] 184 mg/dL <200 [facility] Work Phone: Comment on above: <200 mg/dL Desirable 200-240 mg/dL Borderline >240 mg/dL High Risk Glucose [Mass/Vol] 104 mg/dL 74-106 [facility] Work Phone: Comment on above: Fasting Glucose resu lt from 100 to 125 mg/dL suggests IMPAIRED HOMEOSTASIS per A.D.A. criteria. Neutrophils (Bld) [#/Vol] 2.5 10*3/uL 2.0-7.7 [facility] Work Phone: Potassium [Moles/Vol] 4.1 mmol/L 3.5-5.1 [facility] Work Phone: Protein [Mass/Vol] 6.9 g/dL 6.4-8.2 [facility] Work Phone: Sodium [Moles/Vol] 140 mmol/L 136-145 [facility] Work Phone: Triglyceride [Mass/Vol] 89 mg/dL <199 [facility] Work Phone: Comment on above: The drugs N-Acetylcy steine and Metamizole may falsely depress this assay.Serum Triglycerides Reference Interval Normal <150 mg/dL Borderline high 150 - 199 mg/dL High 200 - 499 mg/dL Very High > or = 500 mg/dL WBC (Bld) [#/Vol] 5.4 10*3/uL 4.4-11.0 [facility] Work Phone: Bilirubin Test strip Ql (U)o n 03-02-2022 Bilirubin Ql (U) Negative Negative [facility] Work Phone: Blood erythrocytes count (nu mber/volume)on 03-02-2022 RBC (Bld) [#/Vol] 5.29 10*6/uL 4.6-6.2 [facility] Work Phone: Blood hemoglobin measurement (mass/volume)on 03-02-2022 Hemoglobin (Bld) [Mass/Vol] 15.6 g/dL 13.0-16.5 [facility] Work Phone: Blood platelet mean volumeon 03-02-2022 Platelet mean volume (Bld) [Entitic vol] 9.1 fL 6.2-12.0 [facility] Work Phone: Determination of erythrocyte mean corpuscular volume (MCV)on 03-02-2022 MCV (RBC) [Entitic vol] 89.4 fL 80-94 [facility] Work Phone: Direct bilirubinon 2 Bilirubin.direct [Mass/Vol] 0.21 mg/dL 0.00-0.30 [facility] Work Phone: Hematocrit Auto (Bld) [Volum e fraction]on 03-02-2022 Hematocrit (Bld) [Volume fraction] 47.3 % 40-54 [facility] Work Phone: Ketones Test strip Ql (U)on 03-02-2022 Ketones Ql (U) Negative Negative [facility] Work Phone: Laboratory - Chemistry and C hemistry - challengeon 03-02-2022 ALP [Catalytic activity/Vol] 84 U/L 45-117 [facility] Work Phone: ALT [Catalytic activity/Vol] 23 U/L 16-61 [facility] Work Phone: Cholesterol.total/Richa sterol in HDL [Mass ratio] 3.70 {ratio} [facility] Work Phone: CO2 [Moles/Vol] 29.0 mmol/L 21.0-32.0 [facility] Work Phone: Globulin (S) [Mass/Vol] 3.2 g/dL 2.2-4.2 [facility] Work Phone: Urea nitrogen/Creatinine [Mass ratio] 19.2 mg/mg 10-20 [facility] Work Phone: Laboratory - Hematology and Cell countson 03-02-2022 Erythrocyte distribution width (RBC) [Entitic vol] 43.3 fL 35.1-43.9 [facility] Work Phone: Erythrocyte distribution width (RBC) [Ratio] 13.3 % 11.6-14.6 [facility] Work Phone: MCH (RBC) [Entitic mass] 29.5 pg 27.0-32.0 [facility] Work Phone: Nucleated RBC/100 WBC (Bld) [Ratio] 0 % 0-5 [facility] Work Phone: MCHC Auto (RBC) [Mass/Vol]on 03-02-2022 MCHC (RBC) [Mass/Vol] 33.0 g/dL 32-36 [facility] Work Phone: Nitrite Test strip Ql (U)on 03-02-2022 Nitrite Ql (U) Negative Negative [facility] Work Phone: No Panel Informationon 03-02 Estimated GFR (MDRD) Amer 122 mL/min >60 [facility] Work Phone: Comment on above: GFR Calc Estimated GFR (MDRD) Non-Af Amer 101 mL/min >60 [facility] Work Phone: Comment on above: Non- GFR Calc Prostate Specific Antigen Screen 1.79 ng/mL 0.00-4.00 [facility] Work Phone: Comment on above: This test was perfor med using the TPSA assay method for the[employer] chemistry system. Values obtained with differentassay methods cannot be used interchangably.When changing PSA assays in the course of monitoring apatient, additional sequential testing should be carriedout to confirm baseline values. Thyroid Stimulating Hormone (TSH) 3.15 uIU/mL 0.358-3.74 [facility] Work Phone: Vitamin D 25-Hydroxy 34.1 ng/mL [facility] Work Phone: Comment on above: Vitamin D 25(OH) Sta tus Range Deficiency <20 ng/mL (50nmol/L) Insufficiency 20 - 30 ng/mL (50 - 75 nmol/L) Sufficiency 30 - 100 ng/mL (75 - 250 nmol/L) Toxicity >100 ng/mL (>250 nmol/L) Platelets bldon 03-02-2022 Platelets (Bld) [#/Vol] 339 10*3/uL 150-450 [facility] Work Phone: Protein Test strip Ql (U)on 03-02-2022 Protein Ql (U) Negative Negative [facility] Work Phone: Segmented neutrophils/100 WB C Auto (Bld)on 03-02-2022 Segmented neutrophils/100 WBC (Bld) 46.7 % 47-70 [facility] Work Phone: Serum or plasma albumin kendra urement (mass/volume)on 03-02-2022 Albumin [Mass/Vol] 3.7 g/dL 3.2-5.0 [facility] Work Phone: Serum or plasma albumin/glob ulin mass ratioon 03-02-2022 Albumin/Globulin [Mass ratio] 1.2 {ratio} 0.9-2.4 [facility] Work Phone: Serum or plasma calcium kendra urement (mass/volume)on 03-02-2022 Calcium [Mass/Vol] 8.6 mg/dL 8.5-10.1 [facility] Work Phone: Serum or plasma cholesterol in HDL measurement (mass/volume)on 03-02-2022 Cholesterol in HDL [Mass/Vol] 50 mg/dL >40 [facility] Work Phone: Comment on above: The drugs N-Acetylcy steine and Metamizole may falsely depress this assay. Reference Range HDL <40 mg/dL Low HDL Cholesterol HDL >or= 60 mg/dL High HDL Cholesterol Serum or plasma cholesterol in VLDL measurement (mass/volume)on 03-02-2022 Cholesterol in VLDL [Mass/Vol] 18 mg/dL 5-40 [facility] Work Phone: Serum or plasma creatinine m easurement (mass/volume)on 03-02-2022 Creatinine [Mass/Vol] 0.83 mg/dL 0.70-1.30 [facility] Work Phone: Comment on above: The validity of the calculated GFR & GFRAA in patients over 70 years has not been determined. Clinical correlation is essential. Serum or plasma low density lipoprotein (LDL) cholesterol measurement (mass/volume)on 03-02-2022 Cholesterol in LDL [Mass/Vol] 116 mg/dL 0-130 [facility] Work Phone: Serum or plasma urea nitroge n measurement (mass/volume)on 03-02-2022 Urea nitrogen [Mass/Vol] 16 mg/dL 7-18 [facility] Work Phone: Serum or plasma uric acid me asurement (mass/volume)on 03-02-2022 Urate [Mass/Vol] 4.9 mg/dL 3.5-7.2 [facility] Work Phone: Comment on above: The drugs N-Acetylcy steine and Metamizole may falsely depress this assay. Thin prep Papanicolaou smear with manual screeningon 03-02-2022 Thin prep Papanicolaou smear with manual screening 18 U/L 15-37 [facility] Work Phone: Thin prep Papanicolaou smear with manual screening 5 5-15 [facility] Work Phone: Thin prep Papanicolaou smear with manual screening 176 U/L 87-241 [facility] Work Phone: Urine blood detectionon 02-04 RBC Ql (U) Negative Negative [facility] Work Phone: Urine clarityon 03-02-2022 Clarity (U) Clear Clear [facility] Work Phone: Urine color determinationon 03-02-2022 Color (U) Yellow Yellow [facility] Work Phone: Urine glucose detectionon Glucose Ql (U) Normal mg/dl Normal [facility] Work Phone: Urine leukocyte esterase det ection by dipstickon 03-02-2022 Leukocyte esterase Test strip Ql (U) 25 /ul Negative [facility] Work Phone: Urine pHon 03-02-2022 pH (U) 6.0 [pH] 5.0 - 8.0 [facility] Work Phone: Urine specific gravity measu rementon 03-02-2022 Specific gravity (U) [Rel density] 1.020 1.002-1.03 0 [facility] Work Phone: Urobilinogen Auto test strip Ql (U)on 03-02-2022 Urobilinogen Ql (U) Normal mg/dl [facility] Work Phone: Absolute lymphocyte counton 12-04-2021 Lymphocytes Auto (Unsp spec) [#/Vol] 2.38 10*3/uL 0.83-4.51 [facility] Work Phone: Basophil percentageon 2021 Basophils/100 WBC (Bld) 0.8 % 0-1 [facility] Work Phone: Bilirubin [Mass/Vol] 0.50 mg/dL 0.20-1.00 [facility] Work Phone: Comment on above: For patients on eltr ombopag therapy, use of Dimension [place] TBIL is not recommended. Eosinophils/100 WBC (Bld) 2.1 % 0-5 [facility] Work Phone: Neutrophils (Bld) [#/Vol] 4.1 10*3/uL 2.0-7.7 [facility] Work Phone: Neutrophils/100 WBC (Bld) 55.4 % 47-70 [facility] Work Phone: Protein [Mass/Vol] 7.3 g/dL 6.4-8.2 [facility] Work Phone: WBC (Bld) [#/Vol] 7.3 10*3/uL 4.4-11.0 [facility] Work Phone: [phone] Blood erythrocytes count (nu mber/volume)on 12-04-2021 RBC (Bld) [#/Vol] 5.22 10*6/uL 4.6-6.2 [facility] Work Phone: Blood hemoglobin measurement (mass/volume)on 12-04-2021 Hemoglobin (Bld) [Mass/Vol] 15.4 g/dL 13.0-16.5 [facility] Work Phone: Blood lymphocytes/100 leukoc yteson 12-04-2021 Lymphocytes/100 WBC (Bld) 32.6 % 19-41 [facility] Work Phone: Blood monocytes/100 leukocyt eson 12-04-2021 Monocytes/100 WBC (Bld) 8.6 % 0-10 [facility] Work Phone: Blood platelet mean volumeon 12-04-2021 Platelet mean volume (Bld) [Entitic vol] 9.5 fL 6.2-12.0 [facility] Work Phone: Determination of erythrocyte mean corpuscular volume (MCV)on 12-04-2021 MCV (RBC) [Entitic vol] 90.2 fL 80-94 [facility] Work Phone: Direct bilirubinon 2 Bilirubin.direct [Mass/Vol] 0.15 mg/dL 0.00-0.30 [facility] Work Phone: Erythrocyte sedimentation ra sonya 12-04-2021 ESR (Bld) [Velocity] 7 mm/h 0-[address] [facility] [facility] Work [facility]: Hematocrit Auto (Bld) [Volum e fraction]on 12-04-2021 Hematocrit (Bld) [Volume fraction] 47.1 % 40-54 [facility] Work Phone: Laboratory - Chemistry and C hemistry - challengeon 12-04-2021 ALP [Catalytic activity/Vol] 86 U/L 45-117 [facility] Work Phone: ALT [Catalytic activity/Vol] 31 U/L 16-61 [facility] Work Phone: Globulin (S) [Mass/Vol] 3.3 g/dL 2.2-4.2 [facility] Work Phone: Laboratory - Hematology and Cell countson 12-04-2021 Erythrocyte distribution width (RBC) [Entitic vol] 42.8 fL 35.1-43.9 [facility] Work Phone: Erythrocyte distribution width (RBC) [Ratio] 13.0 % 11.6-14.6 [facility] Work Phone: Immature granulocytes/100 WBC (Bld) 0.500 % 0.0-0.9 [facility] Work Phone: Comment on above: IG% - Immature Granu locytes (promyelocytes, myelocytes and metamyelocytes) > 1% indicates that a LEFT SHIFT is Present. MCH (RBC) [Entitic mass] 29.5 pg 27.0-32.0 [facility] Work Phone: Nucleated RBC/100 WBC (Bld) [Ratio] 0 % 0-5 [facility] Work Phone: MCHC Auto (RBC) [Mass/Vol]on 12-04-2021 MCHC (RBC) [Mass/Vol] 32.7 g/dL 32-36 [facility] Work Phone: No Panel Informationon 12-04 Estimated GFR (MDRD) Amer 90 mL/min >60 [facility] Work Phone: Comment on above: GFR Calc Estimated GFR (MDRD) Non-Af Amer 75 mL/min >60 [facility] Work Phone: Comment on above: Non- GFR Calc Platelets bldon 12-04-2021 Platelets (Bld) [#/Vol] 351 10*3/uL 150-450 [facility] Work Phone: Serum or plasma C reactive p rotein measurement (mass/volume)on 12-04-2021 CRP [Mass/Vol] mg/L 0.0-3.0 [facility] Work Phone: Comment on above: C-Reactive Protein ( CRP) provides useful information for thediagnosis, therapy and monitoring of inflammatory processesand associated diseases. For the evaluation of Relative Riskfor Cardiovascular Disease, a High Sensitivity CRP (HSCRP)should be ordered. Serum or plasma albumin kendra urement (mass/volume)on 12-04-2021 Albumin [Mass/Vol] 4.0 g/dL 3.2-5.0 [facility] Work Phone: Serum or plasma creatinine m easurement (mass/volume)on 12-04-2021 Creatinine [Mass/Vol] 1.08 mg/dL 0.70-1.30 [facility] Work Phone: Comment on above: The validity of the calculated GFR & GFRAA in patients over 70 years has not been determined. Clinical correlation is essential. Thin prep Papanicolaou smear with manual screeningon 12-04-2021 Thin prep Papanicolaou smear with manual screening 21 U/L 15-37 [facility] Work Phone: Absolute lymphocyte counton 09-10-2021 Lymphocytes Auto (Unsp spec) [#/Vol] 2.89 10*3/uL 0.83-4.51 [facility] Work Phone: Basophil percentageon 2021 Basophils/100 WBC (Bld) 0.9 % 0-1 [facility] Work Phone: Bilirubin [Mass/Vol] 0.60 mg/dL 0.20-1.00 [facility] Work Phone: Comment on above: For patients on eltr ombopag therapy, use of Dimension [place] TBIL is not recommended. Eosinophils/100 WBC (Bld) 1.6 % 0-5 [facility] Work Phone: Neutrophils (Bld) [#/Vol] 3.7 10*3/uL 2.0-7.7 [facility] Work Phone: Neutrophils/100 WBC (Bld) 48.4 % 47-70 [facility] Work Phone: Protein [Mass/Vol] 7.7 g/dL 6.4-8.2 [facility] WBC (Bld) [#/Vol] 7.6 10*3/uL 4.4-11.0 [facility]: Blood erythrocytes count (nu mber/volume)on 09-10-2021 RBC (Bld) [#/Vol] 5.42 10*6/uL 4.6-6.2 [facility] Blood hemoglobin measurement (mass/volume)on 09-10-2021 Hemoglobin (Bld) [Mass/Vol] 16.3 g/dL 13.0-16.5 [facility] Work Phone: Blood lymphocytes/100 leukoc yteson 09-10-2021 Lymphocytes/100 WBC (Bld) 38.1 % 19-41 [facility] Work Phone: Blood monocytes/100 leukocyt eson 09-10-2021 Monocytes/100 WBC (Bld) 9.6 % 0-10 [facility] Work Phone: Blood platelet mean volumeon 09-10-2021 Platelet mean volume (Bld) [Entitic vol] 9.4 fL 6.2-12.0 [facility] Work Phone: Determination of erythrocyte mean corpuscular volume (MCV)on 09-10-2021 MCV (RBC) [Entitic vol] 89.9 fL 80-94 [facility] Work Phone: Direct bilirubinon 2 Bilirubin.direct [Mass/Vol] 0.15 mg/dL 0.00-0.30 [facility] Work Phone: Erythrocyte sedimentation ra sonya 09-10-2021 ESR (Bld) [Velocity] 3 mm/h 0-[address] [facility] Work Phone: Hematocrit Auto (Bld) [Volum e fraction]on 09-10-2021 Hematocrit (Bld) [Volume fraction] 48.7 % 40-54 [facility] Work Phone: Laboratory - Chemistry and C hemistry - challengeon 09-10-2021 ALP [Catalytic activity/Vol] 95 U/L 45-117 [facility] Work Phone: ALT [Catalytic activity/Vol] 44 U/L 16-61 [facility] Work Phone: Globulin (S) [Mass/Vol] 3.9 g/dL 2.2-4.2 [facility] Work Phone: Laboratory - Hematology and Cell countson 09-10-2021 Erythrocyte distribution width (RBC) [Entitic vol] 42.0 fL 35.1-43.9 [facility] Work Phone: Erythrocyte distribution width (RBC) [Ratio] 12.8 % 11.6-14.6 [facility] Work Phone: Immature granulocytes/100 WBC (Bld) 1.400 % 0.0-0.9 [facility] Work Phone: Comment on above: IG% - Immature Granu locytes (promyelocytes, myelocytes and metamyelocytes) > 1% indicates that a LEFT SHIFT is Present. MCH (RBC) [Entitic mass] 30.1 pg 27.0-32.0 [facility] Work Phone: Nucleated RBC/100 WBC (Bld) [Ratio] 0 % 0-5 [facility] Work Phone: MCHC Auto (RBC) [Mass/Vol]on 09-10-2021 MCHC (RBC) [Mass/Vol] 33.5 g/dL 32-36 [facility] Work [facility]: No Panel Informationon 09-10 Estimated GFR (MDRD) Amer 110 mL/min >60 [facility] Work Phone: Comment on above: GFR Calc Estimated GFR (MDRD) Non-Af Amer 91 mL/min >60 [facility] Work Phone: [phone] Comment on above: Non- GFR Calc Platelets bldon 09-10-2021 Platelets (Bld) [#/Vol] 403 10*3/uL 150-450 [facility] Work Phone: Serum or plasma C reactive p rotein measurement (mass/volume)on 09-10-2021 CRP [Mass/Vol] mg/L 0.0-3.0 [facility] Work Phone: Comment on above: C-Reactive Protein ( CRP) provides useful information for thediagnosis, therapy and monitoring of inflammatory processesand associated diseases. For the evaluation of Relative Riskfor Cardiovascular Disease, a High Sensitivity CRP (HSCRP)should be ordered. Serum or plasma albumin kendra urement (mass/volume)on 09-10-2021 Albumin [Mass/Vol] 3.8 g/dL 3.2-5.0 [facility] Work Phone: Serum or plasma creatinine m easurement (mass/volume)on 09-10-2021 Creatinine [Mass/Vol] 0.91 mg/dL 0.70-1.30 [facility] Work Phone: Comment on above: The validity of the calculated GFR & GFRAA in patients over 70 years has not been determined. Clinical correlation is essential. Thin prep Papanicolaou smear with manual screeningon 09-10-2021 Thin prep Papanicolaou smear with manual screening 25 U/L 15-37 [facility] Work Phone: No Panel Informationon 09-02 D-Dimer Quantitative (PE/DVT) 0.33 FEU/ug/m 0.27-0.49 [facility] Work Phone: Comment on above: NORMAL D-Dimer level (<0.50) indicates no DVT or PE. Laboratory - Microbiology an d Antimicrobial susceptibilityon 08-26-2021 SARS-CoV-2 (COVID-19) RNA ANGÉLICA+probe Ql (Unsp spec) Not detected Not Detect [facility] Work Phone: Comment on above: Normal Reference Ran ge: Not DetectedMethod:(RT-PCR) real-time reverse transcriptase PCRLuminex YELENA Instrument*The Food and Drug Administration (FDA) has issued an Emergency Use Authorization (EAU) for the YELENA SARS-CoV-2 Assay for the rapid detection of [...] Informationon 08-26 Influenza Types A,B Direct FA ([facility]) [facility] Work Phone: Office Visiton 03-14-2017 Documentation of current medications (procedure) Done Invalid Interpretation Code [facility] Work Phone: [phone] Tobacco use CPHS Never smoker Invalid Interpretation Code [facility] Work Phone: [phone] Office Visiton 11-29-2016 Protein mass conc Done [facility] Work Phone: [phone] Tobacco smoking status NHIS Never smoker [facility] Work Phone: [phone] Lab Report: Basic Metabolic Profile (BMP)on 09-10-2016 Anion gap 5 mmol/L Invalid Interpretation Code 5-15 [facility] Work Phone: [phone] Anion gap molar conc 5 mmol/L 5-15 [facility] Work Phone: [phone] Calcium mass conc 7.9 mg/dL Low 8.5-10.1 [facility] Work Phone: [phone] Chloride molar conc 101 mmol/L Invalid Interpretation Code 98-107 [facility] Work Phone: [phone] CO2 29.0 mmol/L Invalid Interpretation Code 21.0-32.0 [facility] Work Phone: [phone] CO2 ppres (BldV) 29.0 mmol/L 21.0-32.0 [facility] Work Phone: [phone] Creatinine 88.34 mL/min Invalid Interpretation Code [facility] Work Phone: [phone] Creatinine mass conc 1.01 mg/dL Invalid Interpretation Code 0.70-1.30 [facility] Work [phone] eGFR (non-black) 100 mL/min/{1.73_m2} Invalid Interpretation Code >60 [facility] Work Phone: [phone] EST GFR - AA 100 mL/min >60 [facility] Work Phone: [phone] GFR/1.73 sq M predicted among non-blacks MDRD vol rate/area (S/P/Bld) 82 mL/min/{1.73_m2} Invalid Interpretation Code >60 [facility] Work Phone: [phone] Glucose 108 mg/dL Invalid Interpretation Code 70-110 [facility] Work Phone: [phone] Glucose mass conc 108 mg/dL 70-110 [facility] Work Phone: [phone] Potassium molar conc 4.0 mmol/L Invalid Interpretation Code 3.5-5.1 [facility] Work Phone: [phone] Sodium molar conc 135 mmol/L Low 136-145 [facility] Work Phone: [phone] Urea nitrogen mass conc 19 mg/dL High 7-18 [facility] Work Phone: [phone] Urea nitrogen/Creatinine mass ratio 18.8 RATIO Invalid Interpretation Code 10-20 [facility] Work Phone: [phone] Lab Report: CBC W/Diff, Auto matedon 09-10-2016 Basophils/100 leukocytes 0.2 % Invalid Interpretation Code 0-1 [facility] Work Phone: [phone] Basophils/100 WBC (Bld) 0.2 % 0-1 [facility] Work Phone: [phone] Eosinophils/100 leukocytes 1.7 % Invalid Interpretation Code 0-5 [facility] Work Phone: [phone] Eosinophils/100 WBC (Bld) 1.7 % 0-5 [facility] Work Phone: [phone] Erythrocyte distribution width Ratio (RBC) 43.0 fL 35.1-43.9 [facility] Work Phone: [phone] Erythrocyte distribution width Ratio (RBC) 13.2 % 11.6-14.6 [facility] Work Phone: [phone] Erythrocytes (RBC) 4.69 10*6/uL Invalid Interpretation Code 4.6-6.2 [facility] Work Phone: [phone] Hematocrit (HCT) 42.4 % Invalid Interpretation Code 40-54 [facility] Work Phone: [phone] Hematocrit Volume Fraction (Bld) 42.4 % 40-54 [facility] Work Phone: [phone] Hemoglobin mass conc (Bld) 13.7 g/dL Invalid Interpretation Code 13.0-16.5 [facility] Work Phone: [phone] Immature granulocytes #/vol (Bld) 0.200 % 0.0-0.9 [facility] Work Phone: [phone] immature granulocytes, percentage of total cells, blood 0.200 % Invalid Interpretation Code 0.0-0.9 [facility] Work Phone: [phone] Lymphocytes 1.12 X10 3/UL Invalid Interpretation Code 0.83-4.51 [facility] Work Phone: [phone] Lymphocytes #/vol (Bld) 1.12 X10 3/UL 0.83-4.51 [facility] Work Phone: [phone] Lymphocytes/100 leukocytes 13.6 % Low 19-41 [facility] Work Phone: [phone] Lymphocytes/100 WBC (Bld) 13.6 % Low 19-41 [facility] Work Phone: [phone] MCH 29.2 pg Invalid Interpretation Code 27.0-32.0 [facility] Work Phone: [phone] MCH Entitic mass (RBC) 29.2 pg 27.0-32.0 [facility] Work Phone: [phone] MCHC 32.3 G/GL Invalid Interpretation Code 32-36 [facility] Work Phone: [phone] MCHC mass conc (RBC) 32.3 G/GL 32-36 [facility] Work Phone: [phone] MCV 90.4 fL Invalid Interpretation Code 80-94 [facility] Work Phone: [phone] MCV Entitic volume (RBC) 90.4 fL 80-94 [facility] Work Phone: [phone] Monocytes/100 leukocytes 10.9 % High 0-10 [facility] Work Phone: [phone] Monocytes/100 WBC (Bld) 10.9 % High 0-10 [facility] Work Phone: [phone] neutrophil count, blood 6.0 X10 3/UL Invalid Interpretation Code 2.0-7.7 [facility] Work Phone: [phone] Neutrophils #/vol (Bld) 6.0 X10 3/UL 2.0-7.7 [facility] Work Phone: [phone] Neutrophils/100 leukocytes 73.4 % High 47-70 [facility] Work Phone: [phone] Neutrophils/100 WBC (Bld) 73.4 % High 47-70 [facility] Work Phone: [phone] Platelet mean volume Entitic volume (Bld) 9.1 fL 6.2-12.0 [facility] Work Phone: [phone] Platelets 263 10*3/mm3 Invalid Interpretation Code 150-450 [facility] Work Phone: [phone] Platelets #/vol (Bld) 263 10*3/mm3 150-450 [facility] Work Phone: [phone] PMV by Betty 9.1 fL Invalid Interpretation Code 6.2-12.0 [facility] Work Phone: [phone] RBC #/vol (Bld) 4.69 10*6/uL 4.6-6.2 [facility] Work Phone: [phone] RDW-CA 13.2 % Invalid Interpretation Code 11.6-14.6 [facility] Work Phone: [phone] red blood cell distribution width, size density 43.0 fL Invalid Interpretation Code 35.1-43.9 [facility] Work Phone: [phone] WBC #/vol (Bld) 8.2 10*3/uL 4.4-11.0 [facility] Work Phone: [phone] WBC (Leukocytes) 8.2 10*3/uL Invalid Interpretation Code 4.4-11.0 [facility] Work Phone: [phone] Microbiology: MRSA/SAID SCRE ENon 09-01-2016 GE use only - for [employer] import when terms are not otherwise specified . Invalid Interpretation Code [facility] Work Phone: [phone] MRSA+SAID SCRN . [facility] Work Phone: [phone] Lab Report: Thyroid Stim Hor stephanie (TSH)on 08-31-2016 Thyrotropin Qn 1.14 u[iU]/mL Invalid Interpretation Code 0.358-3.74 [facility] Work Phone: Vital Signs Date Time Vital Sign Value Performing Clinician Facility 02-25-2025 14:58-0400 Body height 177.[address] Ash Mcpherson MD Work Phone: [facility] 02-25-2025 14:58-0400 Body mass index (BMI) [Ratio] 30.9 kg/m2 Dr. Ash Mcpherson MD Work Phone: [phone] [place] [address] 02-25-2025 14:58-0400 Body temperature 98.4 [degF] Dr. Ash Mcpherson MD Work Phone: [phone])[phone] [place] [address] 02-25-2025 14:58-0400 Body weight 97.[address] Ash Mcpherson MD Work Phone: [phone])997-185452 [place] [address] 02-25-2025 14:58-0400 Diastolic blood pressure 87 mm[Hg] Dr. Ash Mcpherson MD Work Phone: [phone])[phone] [address] 02-25-2025 14:58-0400 Heart rate 77 /min Dr. Ash Mcpherson MD Work Phone: [phone])791-651952 [place] [address] 02-25-2025 14:58-0400 Respiratory rate 15 /min Dr. Ash Mcpherson MD Work Phone: [phone])206-468952 [place] [address] 02-25-2025 14:58-0400 SaO2% (BldA) [Mass fraction] 97 % Dr. Ash Mcpherson MD Work Phone: 4(399)879-358368 [place] [address] 02-25-2025 14:58-0400 Systolic blood pressure 138 mm[Hg] Dr. Ash Mcpherson MD Work Phone: 4(854)047-911068 [place] [address] 12-17-2024 06:41-0400 Body height 177.[address] Ash Mcpherson MD Work Phone: [phone])[phone] [address] 12-17-2024 06:41-0400 Body mass index (BMI) [Ratio] 30.7 kg/m2 Dr. Ash Mcpherson MD Work Phone: [phone])693-419615 [address] 12-17-2024 06:41-0400 Body temperature 98.6 [degF] Dr. Ash Mcpherson MD Work Phone: [phone])680-658168 [place] [address] 12-17-2024 06:41-0400 Body weight 97.[address] Ash Mcpherson MD Work Phone: [phone])[phone] [place] [address] 12-17-2024 06:41-0400 Diastolic blood pressure 78 mm[Hg] Dr. Ash Mcpherson MD Work Phone: 1(631)499-902152 [place] [address] 12-17-2024 06:41-0400 Heart rate 100 /min Dr. Ash Mcpherson MD Work Phone: [phone])[phone] [place] [address] 12-17-2024 06:41-0400 SaO2% (BldA) [Mass fraction] 97 % Dr. Ash Mcpherson MD Work Phone: 9(866)657-601552 [place] [address] 12-17-2024 06:41-0400 Systolic blood pressure 124 mm[Hg] Dr. Ash Mcpherson MD Work Phone: [phone])914-327952 [place] [address] 11-15-2023 07:35-0400 Body height 177.[address] Ash Mcpherson Work Phone: 5(527)240-034852 [place] [address] 11-15-2023 07:35-0400 Body mass index (BMI) [Ratio] 30.4 kg/m2 Dr. Ash Mcpherson Work Phone: 3(428)588-170552 [place] [address] 11-15-2023 07:35-0400 Body weight 96.[address] Ash Mcpherson Work Phone: [phone])990-821952 [place] [address] 10-18-2023 13:39-0500 Body mass index (BMI) [Ratio] 30.2 kg/m2 Dr. Ash Mcpherson Work Phone: [phone])691-153452 [place] [address] 10-18-2023 13:39-0500 Body temperature 98 [degF] Dr. Ash Mcpherson Work Phone: [phone])781-182652 [place] [address] 10-18-2023 13:39-0500 Body weight 95.[address] Ash Mcpherson Work Phone: 3(487)438-938552 [place] [address] 10-18-2023 13:39-0500 Diastolic blood pressure 84 mm[Hg] Dr. Ash Mcpherson Work Phone: [facility] 10-18-2023 13:39-0500 Heart rate 75 /min Dr. Ash Mcpherson Work Phone: [facility] 10-18-2023 13:39-0500 Respiratory rate 16 /min Dr. Ash Mcpherson Work Phone: [facility] 10-18-2023 13:39-0500 Systolic blood pressure 142 mm[Hg] Dr. Ash Mcpherson Work Phone: [facility] 06-09-2023 15:31-0400 Body height 177.[address] Ash Mcpherson Work Phone: [facility] 06-09-2023 15:31-0400 Body mass index (BMI) [Ratio] 29.8 kg/m2 Dr. Ash Mcpherson Work Phone: 1(119)[phone] [place] [address] 06-09-2023 15:31-0400 Body temperature 98 [degF] Dr. Ash Mcpherson Work Phone: [facility] 06-09-2023 15:31-0400 Body weight 94.[address] Ash Mcpherson Work Phone: [facility] 06-09-2023 15:31-0400 Diastolic blood pressure 70 mm[Hg] Dr. Ash Mcpherson Work Phone: [facility] 06-09-2023 15:31-0400 Heart rate 76 /min Dr. Ash Mcpherson Work Phone: [facility] 06-09-2023 15:31-0400 Respiratory rate 17 /min Dr. Ash Mcpherson Work Phone: [facility] 06-09-2023 15:31-0400 SaO2% (BldA) [Mass fraction] 97 % Dr. Ash Mcpherson Work Phone: [facility] 06-09-2023 15:31-0400 Systolic blood pressure 122 mm[Hg] Dr. Ash Mcpherson Work Phone: [facility] 04-08-2023 08:08-0400 Body temperature 97.7 [degF] Dr. Ash Mcpherson Work Phone: [facility] 04-08-2023 08:08-0400 Diastolic blood pressure 72 mm[Hg] Dr. Ash Mcpherson Work Phone: [facility] 04-08-2023 08:08-0400 Heart rate 70 /min Dr. Ash Mcpherson Work Phone: [phone](633)330-282615 [address] 04-08-2023 08:08-0400 Respiratory rate 18 /min Dr. Ash Mcpherson Work Phone: 9(219)387-233215 [address] 04-08-2023 08:08-0400 SaO2% (BldA) [Mass fraction] 96 % Dr. Ash Mcpherson Work Phone: [phone])[phone] [place] [address] 04-08-2023 08:08-0400 Systolic blood pressure 107 mm[Hg] Dr. Ash Mcpherson Work Phone: 6(647)263-703452 [place] [address] 04-08-2023 06:48-0400 Body height 177.[address] Ash Mcpherson Work Phone: [phone])[phone] [place] [address] 04-08-2023 06:48-0400 Body mass index (BMI) [Ratio] 29.2 kg/m2 Dr. Ash Mcpherson Work Phone: [phone])963-363415 [address] 04-08-2023 06:48-0400 Body weight 92.[address] Ash Mcpherson Work Phone: 4(758)542-983315 [address] 03-11-2023 08:28-0400 Body height 177.[address] Ash Mcpherson Work Phone: 1(180)158-306215 [address] 03-11-2023 08:28-0400 Body mass index (BMI) [Ratio] 28.7 kg/m2 Dr. Ash Mcpherson Work Phone: [phone])113-076515 [address] 03-11-2023 08:28-0400 Body weight 90.[address] Ash Mcpherson Work Phone: [phone])478-250215 [address] 10-21-2022 07:57-0500 Body height 177.[address] Ash Mcpherson Work Phone: [facility] 10-21-2022 07:57-0500 Body mass index (BMI) [Ratio] 30.6 kg/m2 Dr. Ash Mcpherson Work Phone: [facility] 10-21-2022 07:57-0500 Body temperature 98 [degF] Dr. Ash Mcpherson Work Phone: [facility] 10-21-2022 07:57-0500 Body weight 96.[address] Ash Mcpherson Work Phone: [facility] 10-21-2022 07:57-0500 Diastolic blood pressure 80 mm[Hg] Dr. Ash Mcpherson Work Phone: [facility] 10-21-2022 07:57-0500 Heart rate 76 /min Dr. Ash Mcpherson Work Phone: [facility] 10-21-2022 07:57-0500 Respiratory rate 16 /min Dr. Ash Mcpherson Work Phone: [facility] 10-21-2022 07:57-0500 SaO2% (BldA) [Mass fraction] 98 % Dr. Ash Mcpherson Work Phone: [facility] 10-21-2022 07:57-0500 Systolic blood pressure 116 mm[Hg] Dr. Ash Mcpherson Work Phone: [facility] 08-18-2022 06:51-0500 Body temperature 98 [degF] Dr. Ash Mcpherson Work Phone: [facility] 08-18-2022 06:51-0500 Diastolic blood pressure 84 mm[Hg] Dr. Ash Mcpherson Work Phone: [facility] 08-18-2022 06:51-0500 Heart rate 101 /min Dr. Ash Mcpherson Work Phone: [facility] 08-18-2022 06:51-0500 Respiratory rate 14 /min Dr. Ash Mcpherson Work Phone: [facility] 08-18-2022 06:51-0500 SaO2% (BldA) [Mass fraction] 98 % Dr. Ash Mcpherson Work Phone: [facility] 08-18-2022 06:51-0500 Systolic blood pressure 142 mm[Hg] Dr. Ash Mcpherson Work Phone: [facility] 06-28-2022 09:44-0400 Body height 177.[address] Ash Mcpherson Work Phone: [facility] 06-28-2022 09:44-0400 Body mass index (BMI) [Ratio] 29.1 kg/m2 Dr. Ash Mcpherson Work Phone: [facility] 06-28-2022 09:44-0400 Body temperature 98.2 [degF] Dr. Ash Mcpherson Work Phone: [facility] 06-28-2022 09:44-0400 Body weight 92.[address] Ash Mcpherson Work Phone: [facility] 06-28-2022 09:44-0400 Diastolic blood pressure 74 mm[Hg] Dr. Ash Mcpherson Work Phone: [facility] 06-28-2022 09:44-0400 Heart rate 73 /min Dr. Ash Mcpherson Work Phone: [facility] 06-28-2022 09:44-0400 Respiratory rate 16 /min Dr. Ash Mcpherson Work Phone: [facility] 06-28-2022 09:44-0400 SaO2% (BldA) [Mass fraction] 98 % Dr. Ash Mcpherson Work Phone: [facility] 06-28-2022 09:44-0400 Systolic blood pressure 118 mm[Hg] Dr. Ash Mcpherson Work Phone: [facility] 12-27-2021 08:10-0400 Body temperature 98.4 [degF] Dr. Ash Mcpherson Work Phone: [facility] Work Phone: 04-24-2022 08:10-0400 Diastolic blood pressure 70 mm[Hg] Dr. Ash Mcpherson Work Phone: [facility] Work Phone: 12-27-2021 08:10-0400 Heart rate 91 /min Dr. Ash Mcpherson Work Phone: [facility] Work Phone: 12-27-2021 08:10-0400 Respiratory rate 14 /min Dr. Ash Mcpherson Work Phone: [facility] Work Phone: 12-27-2021 08:10-0400 SaO2% (BldA) [Mass fraction] 97 % Dr. Ash Mcpherson Work Phone: [facility] Work Phone: 12-27-2021 08:10-0400 Systolic blood pressure 114 mm[Hg] Dr. Ash Mcpherson Work Phone: [facility] Work Phone: 12-21-2021 08:44-0400 Body temperature 98 [degF] Dr. Ash Mcpherson Work Phone: [facility] Work Phone: 12-21-2021 08:44-0400 Diastolic blood pressure 68 mm[Hg] Dr. Ash Mcpherson Work Phone: [facility] Work Phone: 12-21-2021 08:44-0400 Heart rate 111 /min Dr. Ash Mcpherson Work Phone: [facility] Work Phone: 12-21-2021 08:44-0400 Respiratory rate 16 /min Dr. Ash Mcpherson Work Phone: [facility] Work Phone: 12-21-2021 08:44-0400 SaO2% (BldA) [Mass fraction] 98 % Dr. Ash Mcpherson Work Phone: [facility] Work Phone: 12-21-2021 08:44-0400 Systolic blood pressure 124 mm[Hg] Dr. Ash Mcpherson Work Phone: [facility] Work Phone: 12-21-2021 08:27-0400 Body height 177.[address] Ash Mcpherson Work Phone: [facility] Work Phone: 09-10-2016 06:29-0500 Body surface area Derived from formula 88.34 mL/min [facility] Work Phone: Encounters Encounter Date Encounter Type Care Provider Facility Start: 02-25-2025 End: 02-25-2025 Patient encounter procedure Daiana LEBRON -[facility] Work Phone: Start: 02-25-2025 End: 02-25-[address] Ash Mcpherson MD Work Phone: [facility] Work Phone: Start: 02-06-2025 End: 02-06-[address] Ash Mcpherson MD Work Phone: [facility] Work Phone: Start: 02-06-2025 End: 02-06-[address] Ash Mcpherson MD Work Phone: -Laboratory Work Phone: Start: 02-06-2025 End: 02-06-2025 ambulatory EVA CANO Facility:[facility] Start: 01-07-2025 End: 01-07-[address] Ash Mcphesron MD Work Phone: [facility] Work Phone: Start: 01-07-2025 End: 01-07-2025 Patient encounter procedure Jose FARIAS -Laboratory, Specimen Work Phone: Start: 01-07-2025 End: 01-07-2025 ambulatory Jose FARIAS Facility:[facility] Start: 12-26-2024 ambulatory Ash Mcpherson Facility:[facility] Start: 12-26-2024 Non-patient / Non-visit Dr. Wilmer Choi [facility] -[facility] Start: 12-26-2024 End: 12-26-[address] Ash Mcpherson MD Work Phone: [facility] Work Phone: Start: 12-26-2024 End: 12-26-[address] Ash Mcpherson MD -Cardiovascular Services Work Phone: Start: 12-26-2024 End: 12-26-20[facility] Start: 12-17-2024 End: 12-17-2024 Patient encounter procedure Spencer FARIAS -[facility] Work Phone: Start: 12-17-2024 End: 12-17-2024 ambulatory Spencer FARIAS [place] Start: 12-12-2024 End: 12-12-[address] Ash Mcpherson MD Work Phone: [facility] Work Phone: Start: 12-12-2024 End: 12-12-[address] [facility] Start: 12-12-2024 End: 12-12-2024 ambulatory Ash Mcpherson Facility:[facility] Start: 11-07-2024 End: 11-07-[address] Ash Mcpherson MD Work Phone: [facility] Work Phone: Start: 11-07-2024 End: 11-07-[address] Ash Mcpherson MD Work Phone: -Laboratory Work Phone: Start: 11-07-2024 End: 11-07-2024 ambulatory EVA CANO Facility:[facility] Start: 08-08-2024 End: 08-08-[address] Ash Mcpherson MD Work Phone: -Laboratory Work Phone: Start: 08-08-2024 End: 08-08-2024 ambulatory EVA CANO Facility:[facility] Start: 05-03-2024 ambulatory Health Risk Assessment Facility:[facility] Start: 05-03-2024 End: 05-03-2024 ambulatory Jose Caro Facility:[facility] Start: 12-12-[address] Ash Mcpherson Work Phone: [facility]-Physical Therapy Work Phone: Start: 12-08-2023 End: 12-08-[address] Ahs Mcpherson Work Phone: [facility] Work Phone: Start: 12-08-2023 End: 12-08-[address] Ash Mcpherson Work Phone: [facility]-MRI - [facility] Work Phone: Start: 11-15-2023 End: 11-15-[address] Ash Mcpherson Work Phone: [facility] Work Phone: Start: 11-11-2023 End: 11-11-[address] Ash Mcpherson Work Phone: [facility] Work Phone: Start: 11-11-2023 End: 11-11-[address] Ash Mcpherson Work Phone: [facility]-Radiology, [facility] Work Phone: Start: 10-18-2023 End: 10-18-[address] Ash Mcpherson Work Phone: [facility] Plastic Recon Surg Work Phone: Start: 09-15-2023 End: 09-15-[address] Ash Mcpherson Work Phone: [facility] Work Phone: Start: 09-15-2023 End: 09-15-[address] Ash Mcpherson Work Phone: [facility]-Laboratory Work Phone: Start: 06-22-[address] Ash lechuga Work Phone: [facility] Start: 06-16-2023 End: 06-16-[address] Ash Mcpherson Work Phone: [facility] Work Phone: Start: 06-16-2023 End: 06-16-[address] Ash Mcpherson Work Phone: [facility]-Laboratory Work Phone: Start: 06-09-2023 End: 06-09-[address] Ash Mcpherson Work Phone: [facility] Neurology Work Phone: Start: 04-08-2023 Non-patient / Non-visit Dr. Ash Mcpherson Work Phone: [facility] Start: 04-08-2023 End: 04-08-2023 Admission to same day surgery center Dr. Ash Mcpherson Work Phone: [facility]-Endoscopy Work Phone: Start: 04-08-2023 End: 04-08-[address] Ash Mcpherson Work Phone: [facility] Work Phone: Start: 03-11-2023 Non-patient / Non-visit Dr. Ash Mcpherson Work Phone: [facility] Work Phone: Start: 03-09-2023 End: 03-09-[address] Ash Mcpherson Work Phone: [facility] Work Phone: Start: 03-09-2023 End: 03-09-2023 Patient encounter procedure [facility]-Laboratory Work Phone: Start: 03-02-2023 End: 03-02-2023 ambulatory [facility] Work Phone: Start: 03-02-2023 End: 03-02-2023 [facility] Start: 12-06-2022 End: 12-06-[address] Ash Mcpherson Work Phone: [facility] Work Phone: Start: 12-06-2022 End: 12-06-[address] [facility] Start: 10-29-2022 End: 10-29-[address] [facility] Start: 10-21-2022 End: 10-21-[address] Ash Mcpherson Work Phone: [facility] Start: 09-07-2022 End: 09-07-[address] Ash Mcpherson Work Phone: [facility] Work Phone: Start: 09-07-2022 End: 09-07-[address] [facility] Start: 08-18-2022 End: 08-18-[address] Ash Mcpherson Work Phone: [facility] Start: 07-08-2022 End: 07-08-[address] Ash Mcpherson Work Phone: [facility] Work Phone: Start: 07-08-2022 End: 07-08-[address] [facility] Start: 06-30-2022 End: 06-30-[address] Ash Mcpherson Work Phone: [facility] Work Phone: Start: 06-30-2022 End: 06-30-[address] Ash Mcpherson Work Phone: [facility]-Laboratory Start: 06-28-2022 End: 06-28-[address] Ash Mcpherson Work Phone: [facility] Start: 06-09-2022 End: 06-09-[address] Ash Mcpherson Work Phone: [facility] Work Phone: Start: 06-09-2022 End: 06-09-[address] [facility] Start: 05-31-2022 Non-patient / Non-visit Dr. Ash Mcpherson Work Phone: [facility] Start: 05-31-2022 End: 05-31-[address] Ash Mcpherson Work Phone: [facility] Work Phone: Start: 05-31-2022 End: 05-31-[address] Ash Mcpherson Work Phone: [facility]-Pulmonary Services/Neurology Start: 03-09-2022 End: 03-09-[address] [facility] Start: 03-02-[address] Ash lechuga Work Phone: [facility] Start: 03-02-2022 End: 03-02-[address] Ash Mcpherson Work Phone: [facility]-Laboratory Start: 12-27-2021 End: 12-27-[address] Ash Mcpherson Work Phone: [facility] Start: 12-21-2021 End: 12-21-[address] Ash Mcpherson Work Phone: [facility] Start: 12-04-2021 End: 12-04-[address] Ash Mcpherson Work Phone: [facility] Start: 09-10-2021 End: 09-10-[address] Ash Mcpherson Work Phone: [facility] Start: 09-02-[address] Ash Mcpherson Work Phone: [facility] Start: 08-26-2021 End: 08-26-[address] Ash Mcpherson Work Phone: [facility] Virtual Visit Start: 08-26-[address] Ash lechuga Work Phone: [facility] Start: 08-26-2021 End: 08-26-[address] Ash Mcpherson Work Phone: [facility] Procedures Date Procedure Procedure Detail Performing [...] jnt of lwr extre w/o dye Nolberto Cheney Haider Work Phone: Start: 05-07-2016 End: 05-20-2016 Drain/inject, joint/bursa Nolberto Noni Haider Work Phone: Start: 05-07-2016 End: 09-01-2016 X-ray exam, knee, 4 or more Nolberto Noni Haider Work Phone: History of operative procedure on knee S/P left unicompartmental knee replacement Dr. Ash Mcpherson Work Phone: Plan of Treatment Date Care Activity Detail Author Start: 11-16-2023 Patient referral [facility] Work Phone: Start: 04-08-2023 Patient discharge [facility] Start: 03-14-2017 End: 03-14-2017 X-ray exam, knee, 4 or more X-Ray, Knee [facility] Work Phone: Start: 10-18-2016 End: 10-18-2016 X-ray exam, knee, 4 or more X-Ray, Knee [facility] Work Phone: Start: 08-11-2016 End: 09-01-2016 X-ray exam l-s spine bending X-Ray, Spine, Lumbar, complete with bending views [facility] Work Phone: Start: 07-23-2016 End: 09-01-2016 Mri jnt of lwr extre w/o dye MRI Joint Lower Extremity [facility] Work Phone: Start: 05-07-2016 End: 09-01-2016 X-ray exam, knee, 4 or more X-Ray, Knee [facility] Work Phone: Cobalamin (Vitamin B 12) [Mass/volume] in Serum or Plasma [facility] Colonoscopy [facility] Folic acid measureme nt, RBC [facility] Magnesium measurement [facility] MR Lumbar spine [facility] Patient Education BACK%20PAIN [facility] Work Phone: Patient referral [facility] Work Phone: Thiamine measurement [facility] Vitamin B6 measurement [facility] Immunizations Immunization Date Immunization Notes Care Provider Brandie burgos 07-19-2024 influenza, seasonal, injectable, preservative free Dr. Ash Mcpherson MD Work Phone: [facility] 07-11-2023 influenza, injectabl e, quadrivalent, preservative free Dr. Ash Mcpherson Work Phone: [facility] 06-23-2022 influenza, injectabl e, quadrivalent, preservative free Dr. Ash Mcpherson Work Phone: [facility] 06-23-2022 influenza, seasonal, injectable Dr. Ash Mcpherson Work Phone: [facility] 05-21-2022 Covid Moderna Bivale nt Booster Dr. Ash Mcpherson Work Phone: [facility] 07-08-2021 Covid (Moderna) Dr. Ash cartagena Work Phone: [facility] 06-02-2021 influenza, injectabl e, quadrivalent, preservative free Dr. Ash Mcpherson Work Phone: [facility] 06-02-2021 influenza, seasonal, injectable Dr. Ash Mcpherson Work Phone: [facility] 10-06-2020 Covid (Moderna) Dr. Ash cartagena Work Phone: [facility] 09-08-2020 Alanna (Moderna) Dr. Ash cartagena Work Phone: [facility] 06-23-2020 influenza, injectabl e, quadrivalent, preservative free Dr. Ash Mcpherson Work Phone: [facility] 06-23-2020 influenza, seasonal, injectable Dr. Ash Mcpherson Work Phone: [facility] 03-10-2020 hepatitis B vaccine, adult dosage Dr. Ash Mcpherson Work Phone: [facility] 10-11-2019 hepatitis B vaccine, adult dosage Dr. Ash Mcpherson Work Phone: [facility] 09-10-2019 hepatitis B vaccine, adult dosage Dr. Ash Mcpherson Work Phone: [facility] 09-10-2019 influenza, injectabl e, quadrivalent, preservative free Dr. Ash Mcpherson Work Phone: [facility] 09-10-2019 influenza, seasonal, injectable Dr. Ash Mpcherson Work Phone: [facility] 05-07-2016 tetanus and diphther ia toxoids, adsorbed, preservative free, for adult use (2 Lf of tetanus toxoid and 2 Lf of diphtheria toxoid) Dr. Ash Mcpherson Work Phone: [facility] Payers Date Payer Category Payer Self-pay [id number] 2014 Unknown [id number] Private Health Insurance [id number] 2 Unknown [id number] Unknown [facility] [id number] a Unknown [facility] [id number] Unknown [id number] Unknown [id number] Unknown [id number] Unknown [id number] Unknown [id number] Unknown [id number] Unknown [id number] Unknown [id number] Unknown [id number] Unknown [id number] Unknown [id number] Unknown [id number] Social History Date Type Detail Facility Start: 08-26-2021 End: 11-15-2023 Tobacco smoking status NHIS Unknown if ever smoked [facility] Start: 1965 Sex Assigned At Male [facility] Start: 12-14-2023 Tobacco smoking stat us NHIS Never smoked tobacco (finding) [facility] Start: 11-21-2024 End: 12-31-2024 Sex Male (finding) [facility] Goals Date Patient Goal Desired Activity /State Mental Status Date Assessment Result Facility 04-08-2023 Cognitive function Voice/Name [facility] Work Phone: Clinical Notes 04-08-2023 Note Date & Type Note Facility 04-08-2023 Procedure note [facility] 04-08-2023 Procedure note [facility] Chief complaint+Reason for v isit Narrative Reason for Visit Viral URI with cough [facility] Work Phone: Evaluation note* Diagnosis Onset Date Resolution Status Viral URI with cough acute [facility] Work Phone: Evaluation note* Diagnosis Onset Date Resolution Status Viral URI with cough acute Acute bacterial sinusitis ac sanket Cough acute [facility] Work Phone: Evaluation noteNo assessment information available [facility] Work Phone: evaluation note* Diagnosis Onset Date Resolution Status Low back pain chronic Polyneuropathy chronic RLS (restless legs syndrome) chronic [facility] Work Phone: evaluation note* Diagnosis Onset Date Resolution Status Low back pain chronic Polyneuropathy chronic RLS (restless legs syndrome) chronic COVID-19 acute [facility] Work Phone: evaluation note* Diagnosis Onset Date Resolution Status COVID-19 acute Low back pain chronic Polyneuropathy chronic [facility] Work Phone: evaluation note* Diagnosis Onset Date Resolution Status Polyneuropathy chronic [facility] Work Phone: evaluation note* Diagnosis Onset Date Resolution Status 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 Squamous cell skin cancer ac sanket Spondylolisthesis, lumbar region acute [facility] Work Phone: evaluation note* Diagnosis Onset Date Resolution Status Admit Date Low back pain chronic February 25, 2025 2:55pm Polyneuropathy chronic February 25, 2025 2:55pm RLS (restless legs syndrome) chronic February 25, 2025 2:55pm [facility] Work Phone: History and physical note Author Clarice Gibbs [facility] April 08, 2023 7:23am Note Date/Time April 08, 2023 7:2 4am [facility] Medical Records Department [address] [place] [address] History & Physical Exam 04/08/2322 MR#: [id number] Acct: [id number] Name: RAMU BARLOW Rep #:[id number] : 1965 58 From: Clarice Gibbs MD PCP: Dr. Ash Mcpherson MD Status:REG S DC Location: [place] [address]1 HPI - General General Date of Service: [...] blood. Patient [place] any chronic abdominal pain/nausea/vomiting/reflux. [facility] Medical History (Updated 04/04/23 @ 15:54 by [...] physical activity do you participate in: none danny/amish: Pentecostal seatbelt use: always Past Medical/Surgical History Planned [...] 06:47) Discharge Is Pt Admitted From a Intermediate, or a Mcfp: No After D/C, Where Do you Plan [...] Mcpherson MD; Dr. Clarice Gibbs MD~ Signed [facility] Work Phone: Hospital Discharge instructionsAmbulatory Orders* Physical Therapy Referral Location: None Selected [facility] Work Phone: Reason for referral (narrative)No reason for referral information [facility] Work Phone: Family History No Family History Records Found Relationship Condition Age at Onset Recorded Date/T nicole Not Specified Arthritis Unknown father Diabetes mellitus Unknown Hypertension Unknown Obstructive sleep apnea syndrome Unknown Advance Directives No Advanced Directives Records Found Advance Directive Response Recorded Date/ Time Advance Directives Yes September 09, 2016 4:19pm Living Will Yes September 15 5:44pm Power of Proposition Player Yes September 15, 2020 5:44pm Advance Directive Response Recorded Date/ Time Advance Directives Yes December 21 8:27am Living Will Yes December 21, 2021 8:27am Power of Proposition Player Yes December 21 8:27am Advance Directive Response Recorded Date/ Time Advance Directives Yes December 21 7:27am Living Will Yes December 21, 2021 7:27am Power of Proposition Player Yes December 21 7:27am Advance Directive Response Recorded Date/ Time Name of Medical Power of Proposition Player - ALICIA April 04, 2023 3:47pm Advance Directives Yes December 21 8:27am Living Will Yes April 04, 2023 3:47pm Power of Proposition Player Yes April 04 3:47pm Advance Directive Response Recorded Date/ Time Advance Directives Yes December 21 7:27am Living Will Yes April 04, 2023 2:47pm Power of Proposition Player Yes April 04 2:47pm Advance Directive Response Recorded Date/ Time Advance Directives Yes December 21 8:27am Living Will Yes April 04, 2023 3:47pm Power of Proposition Player Yes April 04 3:47pm Advance Directive Response Recorded Date/ Time Advance Directives Yes December 21 8:27am Advance Directive Response Recorded Date/ Time Living Will Yes April 04, 2023 3:47pm Do you have a Healthcare Power of Proposition Player? 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 [...] [place]ING[place] NUMBNESS/TINGLING E ORDERS INT LABS COVID TEST/[facility] EMPLOYEE SORE THROAT/SINUS CONCERN/FEVER/COVID TEST/[facility] E[facility] Reason for Visit Low back pain Polyneuropathy RLS (restless legs syndrome) COVID-19 Chief Complaint COVID TEST/[facility] [employer] [place] SORE THROAT/SINUS CONCERN/FEVER/COVID TEST/[facility] EMP 4 M FU Reason for Visit [...] Admit Date SINUS DRAINAGE, COUGH, COLD SYMPTOMS Apr 2024 6:37am 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 COVID/ [facility] December 17, 2024 6:4 9am Chief Complaint Admit Date SINUS DRAINAGE, COUGH, COLD SYMPTOMS Dec 6:37am 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 Dk Caruso MD Attending Provider, Referring Provider Active Team [...] 17, 2024 End: December 17, 2024 Spencer FARIAS PA Attending Provider Active Start: December 17, [...] January 07, 2025 End: January 07, 2025 Team Status: Inactive Member Role Status Dates Dr. Ash Mcpherson MD Primary Care Provider Active Start: February 06, 2025 End: February 06, 2025 DAYANARA HUIZAR Attending Provider Active St art: February 06, 2025 End: February 06, 2025 DAYANARA HUIZAR Referring Provider Active St art: February 06, 2025 End: February 06, 2025 Team Status: Inactive Member Role Status Dates Dr. Ash Mcpherson MD Primary Care Provider Active Start: February 25, 2025 End: February 25, 2025 Dr. Ash Mcpherson MD Referring Provider Active Start: February 25, 2025 End: February 25, 2025 Daiana Bordner , [employer]-C Attending Provider Active S tart: February 25, 2025 End: February 25, 2025 (unrecognized sect ion and content) No Status Records Found INFORMATION SOURCE (unrecogn ized section and content) DATE CREATED AUTHOR 02/26/2025 [facility] FOR RECORDS PERTAINING TO PATIENTS WHO [...] BE BASED ON THE PRIMARY CLINICAL RECORDS. [employer] provides no warranty or guarantee of the accuracy or completeness of information in this document.
[2025-02-28 08:54] LABS: Magnesium 2.3 mg/dL (1.5-2.2); Vitamin B12 280 pg/mL (180-914)
[2025-03-04 19:08] LABS: Folate, RBC (Hct) Test 50.7 % (37.5-51.0); Folates, RBC Test 1041 ng/mL (>498); Vitamin B1, Thiamine 131.4 nmol/L (66.5-200.0)
== END | disposition home or self-care (01) ==
LOC: LAB 06:22
PROVIDERS: PCP Family Medicine
DX: G62.9 Polyneuropathy, unspecified (principal)
CPT/HCPCS: 36415; 82607; 82747; 83735; 84425; 85014

== ENCOUNTER → 2025-04-08 | Outpatient (CLI) | payer OTHER, SELFPAY ==
--- NOTE | 2025-04-08 10:59 | RAD_ITS ---
PROCEDURE: RIBS UNI MIN 3V W/PA CHEST 04/08/2025 REASON FOR EXAM: PAIN TECHNIQUE: RIBS UNI MIN 3V W/PA CHEST COMPARISON: September 15, 2020, March 19, 2020 FINDINGS: Findings: The lungs are clear. There is no pneumothorax or pleural effusion. The heart is normal size. Dedicated images of the right chest/ribs shows no fracture Other: No foreign body RAD/Ribs Uni Min 3V w/PA Chest IMPRESSION: No fracture or pneumothorax. Reading Location: [id number]
== END | disposition home or self-care (01) ==
LOC: MTRAD 10:59
PROVIDERS: PCP Family Medicine; Referring Provider Physician Assistant; Visit Provider Physician Assistant
DX: R07.81 Pleurodynia (principal)
CPT/HCPCS: 71101

== ENCOUNTER → 2025-04-10 | Outpatient (CLI) | payer OTHER, SELFPAY ==
[2025-04-10 13:20] LABS: Free T3 2.6 pg/mL (2.18-3.98)
== END | disposition home or self-care (01) ==
LOC: LAB 11:47
PROVIDERS: PCP Family Medicine; Referring Provider Family Medicine; Visit Provider Family Medicine
DX: E03.9 Hypothyroidism, unspecified (principal); R06.02 Shortness of breath
CPT/HCPCS: 36415; 84439; 84443; 84481

== ENCOUNTER → 2025-05-07 | Outpatient (CLI) | payer OTHER, SELFPAY ==
[2025-05-07 13:11] LABS: Hematocrit 47.3 % (40-54); Hemoglobin 15.9 g/dL (13.0-16.5); Immature Granulocytes Count 0.040 X10^3/uL (0.0-0.0); Mean Corp Hgb Conc 33.6 g/dL (32-36); Mean Corpuscular Volume 89.8 fL (80-94); Mean Platelet Vol. 9.8 fl (6.2-12.0); NRBC Flagged by Analyzer 0 % (0-5); Platelet Count 309 K/mm3 (150-450); RBC Distribution Width CV 13.2 % (11.6-14.6); RBC Distribution Width SD 42.6 fl (35.1-43.9); Red Blood Count 5.27 M/mm3 (4.6-6.2); White Blood Count 6.2 K/mm3 (4.4-11.0)
[2025-05-07 14:23] LABS: AST(SGOT) 27 U/L (<=37); Alanine Aminotransfer ALT/SGPT 23 U/L (<=46); Albumin, Serum 4.2 g/dL (3.4-4.8); Alkaline Phosphatase 100 U/L (40-129); Bilirubin, Direct 0.23 mg/dL (0.00-0.30); Globulin 2.6 g/dL (2.2-4.2)
[2025-05-07 14:24] LABS: CRP < 3.00 mg/L (0.0-3.0)
== END | disposition home or self-care (01) ==
LOC: LAB 11:50
PROVIDERS: PCP Family Medicine
DX: L40.50 Arthropathic psoriasis, unspecified (principal); Z79.899 Other long term (current) drug therapy
CPT/HCPCS: 36415; 80076; 82565; 85025; 85652; 86140

== ENCOUNTER → 2025-08-13 | Outpatient (CLI) | payer OTHER, SELFPAY ==
--- OUTSIDE RECORDS SUMMARY | 2025-08-13 06:30 | XMS RPT_ITS | CCD ---
Author Organization [facility] Care Team Providers Care Wire Hanger Name Role Phone Misti Vicenteica N Unavailable Magda Vicente N Unavailable Magda Vicente N Unavailable Dr. Ash Long Primary Care Provider Dr. Ash Long Referring Provider 1([facility])[phone] Jc Hoyos Attending Provider Katherine FARIAS, DINORA Orellana Attending Provider [phone] Ash Long Primary Care Provider 1([facility])[phone] Dr. Ash Long Referring Provider 1([facility])[phone] Gonsalo FARIAS, PA Spencer Milligan Attending Provider Khadra MAYER, MERCHANDISE DELIVERER-C Megan Attending Provider Dr. Ash Long Primary Care Provider Dr. Ash Long Referring Provider Dr. Ash Long Other Provider Dr. Augustus Merino Attending Provider Dr. Dk Caruso Attending Provider Dr. Ash Long Primary Care Provider Dr. Ash Long Referring Provider Dr. Ahs Long Other Provider Dr. Augustus Merino Attending Provider Dr. Dk Caruso Attending Provider DINORA Joseph Attending Provider Dr. Ash Long Primary Care Provider Dr. Ash Long Referring Provider DINORA Joseph Attending Provider Dr. Dk Caruso Attending Provider MD Dk Braga Referring Provider [facility], Dr. Aleman Primary Care Provider Nayeli Shanks Attending Provider Unavailable Dr. Ash Long Referring Provider Dr. Clarice Gibbs Attending Provider Dr. Clarice Gibbs Other Provider Dr. Dk Caruso Attending Provider Dr. Ash Long Primary Care Provider Dr. Ash Long Referring Provider Dr. Dk Caruso Attending Provider Dr. Ash Long Primary Care Provider Dr. Ash Long Referring Provider Dr. Zenobia Paul Attending Provider Dr. Nam Cifuentes Attending Provider Dr. Ash Long MD Primary Care Provider BHUPENDRA NICHOLE Attending Provider [phone] BHUPENDRA NICHOLE Referring Provider Dr. Ash Long MD Primary Care Provider BHUPENDRA NICHOLE Attending Provider [phone] Ash Long MD Attending Provider Dr. Ash Long MD Referring Provider Spencer Joseph Attending Provider Dr. Ash Long MD Other Provider Jimbo REHMAN, Dr. Guillen Attending Provider Jose Larios Attending Provider [phone] Jose Larios Referring Provider [phone] Gregory MERCHANDISE DELIVERER-CDaiana Attending Provider Gregory MERCHANDISE DELIVERER-C, Daiana Referring Provider Ky REHMAN, Dr. Aleman Primary Care Provider [phone] BHUPENDRA NICHOLE Attending Provider BHUPENDRA NICHOLE Referring Provider Spencer Joseph Referring Provider [phone] Ky REHMAN, Dr. Aleman Primary Care Provider Ky REHMAN, Dr. Aleman Referring Provider Ky REHMAN, Dr. Aleman Attending Provider Assessment, Health Risk Attending Provider Unava ilable Assessment, Health Risk Referring Provider Unava ilkarena Long MD, Dr. Aleman Primary Care Provider Ky REHMAN, Dr. Aleman Referring Provider Spencer Joseph Attending Provider Ky REHMAN, Dr. Aleman Primary Care Provider Ky REHMAN, Dr. Aleman Referring Provider Ky REHMAN, Dr. Aleman Attending Provider Ky REHMAN, Dr. Aleman Primary Care Physician BHUPENDRA NICHOLE Attending Physician Gregory MERCHANDISE DELIVERER-C, Daiana Attending Physician Spencer Joseph Attending Physician [phone] Ky REHMAN, Dr. Aleman Attending Physician Assessment, Health Risk Attending Physician Dimitrios Caruso MD, Dr. Root Attending Physician Ash Long Referring Unavailable Ky, Ash Attending Unavailable Ky, Ash Primary Care Unavailable Ky, Ash Referring Unavailable Ky, Ash Consulting Unavailable Ky, Ash Primary Care Unavailable Wilmer Choi Attending Unavailable Ash Long Referring Unavailable Spencer Joseph Attending Unavailable Long, Ash Primary Care Unavailable Dk Caruso Attending Unavailable Long, Ash Referring Unavailable Long, Ash Primary Care Unavailable Long, Ash Referring Unavailable Daiana Jenkins Attending Unavailable Long, Ash Primary Care Unavailable Long, Ash Referring Unavailable Spencer Joseph Attending Unavailable Long, Ash Primary Care Unavailable Long, Ash Referring Unavailable Spencer Joseph Attending Unavailable Long, Ash Primary Care Unavailable SONJA, 1 Referring Unavailable SONJA, 1 Attending Unavailable Long, Ash Primary Care Unavailable SONJA, 1 Attending Unavailable Long, Ash Primary Care Unavailable SONJA, 1 Referring Unavailable SONJA, 1 Attending Unavailable Long, Ash Primary Care Unavailable Long, Ash Referring Unavailable Long, Ash Attending Unavailable Long, Ash Primary Care Unavailable SONJA, 1 Referring Unavailable SONJA, 1 Attending Unavailable Long, Ash Primary Care Unavailable Long, Ash Referring Unavailable Long, Ash Attending Unavailable Long, Ash Primary Care Unavailable Jose Larios Referring Unavailable Jose Larios Attending Unavailable Long, Ash Primary Care Unavailable BorDaiana diaz Referring Unavailable Daiana Jenkins Attending Unavailable Long, Ash Primary Care Unavailable Spencer Joseph Referring Unavailable Spencer Joseph Attending Unavailable Long, Ash Primary Care Unavailable Assessment, Health Risk Referring Unavaila ble Assessment, Health Risk Attending Unavaila ble Long, Ash Primary Care Unavailable Medications Current Medications [...] 05-07-2016 HUMIRA 10 MG/0 .2ML PSKT ADALIMUMAB [id number] Nolberto Maloney Start: 05-07-2016 HUMIRA 10 MG/0 .2ML PSKT ADALIMUMAB [id number] Nolberto Maloney Adalimumab 10 mg/0.2 mL syri nge kit (7 sources) Start: 02-25-2025 inject 40 mg by subc utaneous injection every other week Start: 02-25-2025 inject 40 mg by subc utaneous injection every other week Adalimumab 10 mg/0.2 mL syringe kit Active 40 mg SC .COMPLEX February 25, 2025 3:02pm 40 mg subcutaneously every 2 weeks; levothyroxine sodium 0.1 mg oral tablet (20 sources) l-Thyroxine Start: 05-07-2016 take 1 tablet by della th once daily Completed/Discontinued Medications Medication Drug Class(es) Dates Sig [...] Adalimumab 10 MG/0.2 ML syri nge kit (12 sources) Start: 05-07-2016 End: 02-25-2025 Adalimumab 10 [...] 1 {tbl} PO TWICE A DAY 14 7 0 December 27, 2021 12:00am January 02, 2022 12:00am January 03, 2022 12:04am Acute bacterial sinusitis Acute sinusitis, unspecified Other specified bacterial agents as the cause of diseases classified elsewhere Start: 12-27-2021 End: 01-03-2022 take 1 tablet by mouth twice daily Amoxicillin-Pot Clavulanate Discontinued 1 TABLET PO TWICE A DAY 14 7 December 27, 2021 12:00am January 03, 2022 12:04am Start: 04-24-2020 End: 05-04-2020 take 1 mL by mouth every twelve hours Amoxicillin-Pot Clavulanate 400-57 mg/5 mL suspension for reconstitution Discontinued 10 mL PO Q12H 200 10 0 April 24, 2020 12:00am May 03, 2020 [...] Discontinued 325 mg PO TWICE A DAY 30 0 September 10, 2016 1:00am August 18, 2017 12:44pm benzonatate 200 mg oral capsule (20 sources) Non-narcotic Antitussive Start: 12-17-2024 End: 02-25-2025 take 1 capsule by mouth three times daily as needed for cough Benzonatate 200 mg capsule Discontinued 200 mg PO THREE TIMES A DAY as needed for cough 20 0 December 17, 2024 12:00am February 25, 2025 3:02pm Start: 08-18-2022 End: 10-21-2022 take 1 capsule by mouth three times daily as needed for cough Benzonatate 200 mg capsule Discontinued 200 mg PO THREE TIMES A DAY as needed for cough 30 0 August 18, 2022 1:00am October 21, 2022 9:01am Start: 12-27-2021 End: 06-28-2022 take 1 capsule by mouth three times daily as needed for cough Benzonatate 200 mg capsule Discontinued 200 mg PO THREE TIMES A DAY as needed for cough 30 0 December 27, 2021 12:00am June 28, 2022 9:52am Cough Cough, unspecified Start: 08-26-2021 End: 12-27-2021 Benzonatate 100 mg capsule Discontinued 100 mg PO 2 to 3 times per day as needed for cough 15 0 August 26, 2021 1:00am December 27, 2021 8:11am Start: 08-31-2017 End: 01-13-2018 take 1 capsule by mouth three times daily as needed for cough Benzonatate 200 mg capsule Discontinued 200 mg PO THREE TIMES A DAY as needed for cough 20 0 August 31, 2017 1:00am January 13, 2018 [...] 05-07-2016 BUPROPION HCL ER (SR) 150 MG [id number] BUPROPION HCL [id number] Nolberto Maloney diazePAM 5 mg oral tablet [...] po twice daily as needed DOCUSATE SODIUM [id number] Nolberto Maloney Start: 09-20-2016 take 2 capsules by m outh twice daily as needed COLACE 100 MG CAPS 2 po twice daily as needed DOCUSATE SODIUM [id number] Nolberto Maloney Start: 09-10-2016 End: 08-19-2017 take 1 capsule by mouth twice daily as needed for constipation Docusate Sodium 100 MG capsule Discontinued 100 mg PO TWICE DAILY NEEDED as needed for Constipation 10 0 September 10, 2016 1:00am August 19, 2017 4:31pm DULoxetine 30 mg delayed release oral capsule (20 sources) Serotonin and Norepinephrine Reuptake Inhibitor Start: 10-21-2022 End: 10-21-2022 take 1 capsule by mouth once daily Duloxetine 30 mg capsule,delayed release(DR/EC) Discontinued 30 mg PO DAILY 30 6 October 21, 2022 9:24am October 21, 2022 9:35am Start: 07-28-2022 End: 10-21-2022 take 1 capsule by mouth every other day Duloxetine 30 mg capsule,delayed release(DR/EC) Discontinued 30 mg PO .COMPLEX 15 3 July 28, 2022 1:00am October 21, 2022 9:24am 30 mg orally every other day Start: 07-08-2022 End: 07-28-2022 take 1 capsule by mouth every other day Duloxetine 20 mg capsule,delayed release(DR/EC) Discontinued 20 mg PO .COMPLEX 15 July 08, 2022 12:00am July 28, 2022 7:11pm 20 mg orally every other day Start: 06-28-2022 End: 07-08-2022 take 1 capsule by mouth at bedtime Duloxetine 30 mg capsule,delayed release(DR/EC) Discontinued 30 mg PO AT BEDTIME 7 June 28, 2022 12:00am July 08, 2022 11:16am Start: 06-28-2022 End: 07-08-2022 take 1 capsule by mouth once daily at bedtime Duloxetine 60 mg capsule,delayed release(DR/EC) Discontinued 60 mg PO AT BEDTIME 30 June 28, 2022 12:00am July 08, 2022 11:16am Begin after completing one week course of duloxetine 30mg nightly. famotidine 20 mg oral tablet (20 sources) Histamine-2 Receptor Antagonist Start: 09-10-2016 End: 08-19-2017 take 1 tablet by mouth twice daily Famotidine 20 MG tablet Discontinued 20 mg PO TWICE A DAY 20 0 September 10, 2016 1:00am August 19, 2017 [...] 6:47am Lactobacillus Combination No.4 1 EACH capsule (12 sources) Start: 03-13-2018 End: 04-24-2020 take 1 [...] 05-07-2016 MELOXICAM 15 M G TABS MELOXICAM [id number] Nolberto Maloney methylPREDNISolone 4 mg oral tablet (14 sources) Corticosteroid Start: 12-17-2024 End: 02-25-2025 take 1 tablet by mouth once Methylprednisolone (Medrol (Jamar)) 4 mg tablets,dose pack Discontinued 0 PO per package directions December 17, 2024 12:00am February 25, 2025 3:02pm PO PER PKG DIR Start: 08-11-2016 METHYLPREDNISO LONE 4 MG TBPK take as directed METHYLPREDNISOLONE [id number] Nolberto Maloney Start: 08-11-2016 METHYLPREDNISO LONE 4 MG TBPK take as directed METHYLPREDNISOLONE [id number] Nolberto Maloney Nirmatrelvir-Ritonavir (20 sources) Start: 08-18-2022 End: 10-21-2022 Nirmatrelvir-Ritonavir (Paxl ovid (Eua)) 300 mg (150 mg x 2)-100 mg tablets,dose pack Discontinued 0 PO .COMPLEX 30 August 18, 2022 1:00am October 21, 2022 [...] 4 HOURS NEEDED as needed for Pain 90 0 September 11, 2016 1:00am August 18, 2017 12:44pm Start: 09-11-2016 End: 08-18-2017 take 15 mg by mouth every four hours as needed Oxycodone Discontinued 15 MG PO EVERY 4 HOURS NEEDED 90 September 11, 2016 1:00am August 18, 2017 12:44pm Start: 09-10-2016 End: 08-18-2017 take 1 tablet by mouth every twelve hours Oxycodone 10 MG tablet Discontinued 10 mg PO Q12H 14 0 September 10, 2016 1:00am August 18, 2017 [...] MG tablet Discontinued 10 mg PO DIRECTED 33 May 16, 2018 12:00am June 26, 2018 [...] 4 HOURS NEEDED as needed for Nausea 10 0 September 10, 2016 1:00am August 18, 2017 12:44pm raNITIdine 150 mg oral tablet (20 sources) Histamine-2 Receptor Antagonist Start: 08-18-2017 End: 08-19-2017 take 1 tablet by mouth at bedtime Ranitidine Hcl 150 mg tablet Discontinued 150 mg PO AT BEDTIME August 18, 2017 1:00am August 19, 2017 4:31pm Start: 05-07-2016 RANITIDINE HCL 150 MG TABS RANITIDINE HCL [id number] Nolberto Maloney rOPINIRole 0.25 mg oral tablet [...] 6 HOURS as needed for pain 56 2 December 02, 2017 12:00am January 13, 2018 1:34pm Unilateral primary osteoarthritis, left knee 1-2 po q6h prn pain PO Q6H [...] Depressive disorder; Translations: [Depressive disorder] 03-15-2018 Chronic Nervous system congenital anomalies (3 sources) Spina bifida; Translations: [Spina bifida, unspecified] Onset: 08-11-2016 08-16-2016 Chronic Osteoarthritis (20 sources) Localized, primary osteoarthritis; Translations: [Arthritis] Onset: 05-07-2016 05-20-2016 Chronic Other acquired deformities (19 sources) Spondylolisthesis, lumbar region; Translations: [Lumbar spondylolisthesis] Onset: 08-11-2016 08-16-2016 Episodic Other aftercare (20 sources) 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; Translations: [Other termite exterminator (current) drug therapy] 07-26-2021 Episodic Other connective tissue disease (2 sources) Presence of unspecified artificial knee joint; Translations: [Presence of unspecified artificial knee joint] Onset: 03-14-2017 03-23-2017 Chronic Other connective tissue disease (20 sources) History of prosthetic unicompartmental arthroplasty of [...] psoriasis, unspecified; Translations: [Arthropathic psoriasis, unspecified] Onset: 05-20-2025 Chronic Other lower respiratory disease (20 sources) Cough; Translations: [Cough] Episodic Other lower respiratory disease (1 source) Pleurodynia; Translations: [Pleurodynia] Onset: 04-16-2025 Episodic Other nervous system disorders (20 sources) Polyneuropathy; Translations: [Polyneuropathy, unspecified] 06-28-2022 Chronic Other nervous system disorders (7 sources) Polyneuropathy, unspecified; Translations: [Unspecified hereditary and idiopathic peripheral neuropathy] Onset: 03-05-2025 Chronic Other non-epithelial cancer of skin (16 sources) Squamous cell carcinoma of skin; Translations: [...] conditions (not mental disorders or infectious disease) (18 sources) Patient encounter status; Translations: [Encounter for [...] Onset: 08-11-2016 08-11-2016 Episodic Superficial injury; contusion (20 sources) Abrasion of left little finger; Translations: [Abrasion of left little finger, initial encounter] 01-16-2024 Episodic Thyroid disorders (20 sources) Hypothyroidism; Translations: [Hypothyroidism, unspecified] Onset: 04-18-2025 03-15-2018 Chronic Unclassified (1 source) Postoperative physical examination; Translations: [Encounter for other specified surgical aftercare] Onset: 09-20-2016 09-20-2016 Viral infection (20 sources) Disease caused by 2019-nCoV; Translations: [COVID-19] 08-18-2022 Episodic Past or Other Problems Problem Classification Problem Date Documented Da te Episodic/Chronic Neoplasms of unspecified nature or uncertain behavior (20 sources) Neoplasm of bone; Translations: [Neoplasm of unspecified behavior of bone, soft tissue, and skin] Onset: 01-10-2025 07-21-2021 Episodic Comment on above: IP joint left thumb Nonspecific chest pain (2 sources) Chest pain, unspecified; Translations: [Chest pain, unspecified] Onset: 01-14-2025 Episodic Other aftercare (2 sources) Encounter for other specified surgical aftercare; Translations: [Encounter for other specified surgical aftercare] Onset: 09-20-2016 09-20-2016 Episodic Other aftercare (1 source) Other senior living (current) drug therapy; Translations: [Other senior living (current) drug therapy] Onset: 02-13-2025 Episodic Other non-traumatic joint disorders (3 sources) Knee pain; Translations: [Pain in left knee] Onset: 05-07-2016 05-07-2016 Episodic Results Test Name Value Interpretation Reference Range Facility Neurology Visit Reporton Neurology Visit Report [facility] [address], [address] [place] [address] OFFICE VISIT Date of Service: 06/03/25 MR#: [id number] Acct: [id number] Name: RAMU BARLOW Rep #: [id number] : 1965 Provider: Dr. Dk siddiqi MD Age/Sex: 60/M [place] [facility] [place] Status: Signed HPI [facility] Chief Complaint: Details: Interim History: Ramu returns for follow-up visit. He has a history of hypothyroidism, obstructive sleep apnea (he did not tolerate CPAP), and psoriatic arthritis. He began to experience tingling pain in the feet around 2015. He now describes the discomfort in the feet as a hot feeling. This has worsened over time. His symptoms are worse at night or when he is at rest. He had also experienced occasional brief shock type sensation in the feet; this diminished in frequency. He continues to experience tingling in the feet has extended up to his knees bilaterally. He denied having weakness. He has a history of low back pain that is worsened with activity; his low back pain occurs intermittently and is triggered by activities that places strain on his lower back. He no longer experiences lower extremity radicular pain. Physical therapy was of benefit for his low back pain. He was evaluated by an orthopedic surgeon, Dr. Buckner, and lumbar surgery was not felt to be warranted. He has had chronic neck pain due to arthritis. He has occasional transient numbness and tingling in the hands which occurs at night and is alleviated with position change of his upper extremities. His hand tingling is mild. His hand symptoms started around 2014. He has leg restlessness at night which is alleviated by leg movement. A trial of ropinirole in years past was not well-tolerated. His leg restlessness is not a prominent symptom. He had a partial left knee replacement. He consumes about 1 to 2 ounces of liquor daily. Duloxetine was of benefit for his neuropathic [...] of symptomatic benefit. He denied having fatigue. He takes an oral B12 supplement. He takes Humira for his psoriatic arthritis. Physical Exam: Neuro: The patient is awake and alert and responds appropriately; speech is fluent Heart: Regular rate and rhythm HEENT: Tympanic membrane's are clear Supplemental Info GRISEL (03/19/2020): Negative Rheumatoid factor (03/19/2020): <10 [...] Right sural sensory response showed a normal amplitude and slightly reduced conduction velocity.??? Right superficial peroneal sensory response showed a normal amplitude and borderline conduction velocity. Right medial plantar response showed a normal amplitude and conduction velocity. The left peroneal motor study recording the extensor digitorum brevis showed a normal amplitude, normal distal latency and normal conduction velocity. No conduction block or focal slowing was present across the fibular neck. The left tibial motor study recording the abductor hallucis brevis showed a normal amplitude, normal distal latency and normal conduction velocity. Left sural sensory response showed a normal amplitude and slightly reduced conduction velocity. Left superficial peroneal sensory response showed a normal amplitude and borderline conduction velocity. Left medial plantar response showed a slightly reduced amplitude and normal conduction velocity. Needle EMG of the left lower extremity and paraspinal muscles was performed. No denervation was present in any muscle. Motor unit morphology, activation, and recruitment patterns were normal. Needle EMG of the right lower extremity was omitted given the symmetry of the patient's symptoms and paucity of findings on the left. Impression: This is a mildly abnormal study. There is no definitive electrophysiologic evidence of peripheral neuropathy in the lower extremities. That said, the mildly reduced sensory velocities in the lower extremities may be indicative of an (more content not included)... Normal [facility] Absolute lymphocyte counton 05-07-2025 Lymphocytes Auto (Unsp spec) [#/Vol] 2.18 10*3/uL 0.83-4.51 [facility] Absolute neutrophil counton 05-07-2025 Neutrophils (Bld) [#/Vol] 3.1 10*3/uL 2.0-7.7 [facility] Automated lymphocyte count a s percentage of total leukocyteson 05-07-2025 Lymphocytes/100 WBC Auto (Unsp spec) 35.4 % 19-41 [facility] Basophil percentageon 2024 Basophils/100 WBC (Bld) 0.8 % 0-1 [facility] Bilirubin directon 5 Bilirubin.direct [Mass/Vol] 0.23 mg/dL 0.00-0.30 [facility] Bilirubin, totalon 5 Bilirubin [Mass/Vol] 0.62 mg/dL 0.00-1.30 [facility] CBC W/Diff, Automatedon Absolute Lymph 2.18 X10 3/uL Normal 0.83-4.51 [facility] Comment on above: Performed By: #### L 501.1105, L500.3400, L100.0100, L101.9900, L501.6710 #### [facility] [address] [place], [address] Absolute Neut 3.1 X10 3/uL Normal 2.0-7.7 [facility] Comment on above: Performed By: #### L 501.1105, L500.3400, L100.0100, L101.9900, L501.6710 #### [facility] [address] [place], [address] Basophils/100 WBC (Bld) 0.8 % Normal 0-1 [facility] Comment on above: Performed By: #### L 501.1105, L500.3400, L100.0100, L101.9900, L501.6710 #### [facility] [address] [place], [address] Eosinophils/100 WBC (Bld) 2.0 % Normal 0-5 [facility] Comment on above: Performed By: #### L 501.1105, L500.3400, L100.0100, L101.9900, L501.6710 #### [facility] [address] [place], [address] Erythrocyte distribution width (RBC) [Ratio] 13.2 % Normal 11.6-14.6 [facility] Comment on above: Performed By: #### L 501.1105, L500.3400, L100.0100, L101.9900, L501.6710 #### [facility] [address] [place], [address] Hematocrit (Bld) [Volume fraction] 47.3 % Normal 40-54 [facility] Comment on above: Performed By: #### L 501.1105, L500.3400, L100.0100, L101.9900, L501.6710 #### [facility] [address] [place], [address] Hemoglobin (Bld) [Mass/Vol] 15.9 g/dL Normal 13.0-16.5 [facility] Comment on above: Performed By: #### L 501.1105, L500.3400, L100.0100, L101.9900, L501.6710 #### [facility] [address] [place], [address] IG% 0.700 Normal 0.0-0.9 [facility] Comment on above: Result Comment: IG% - Immature Granulocytes (promyelocytes, myelocytes and metamyelocytes) > 1% indicates that a LEFT SHIFT is Present. Performed By: #### L 501.1105, L500.3400, L100.0100, L101.9900, L501.6710 #### [facility] [address] [place], [address] Lymphocytes/100 WBC (Bld) 35.4 % Normal 19-41 [facility] Comment on above: Performed By: #### L 501.1105, L500.3400, L100.0100, L101.9900, L501.6710 #### [facility] [address] [place], [address] MCH (RBC) [Entitic mass] 30.2 pg Normal 27.0-32.0 [facility] Comment on above: Performed By: #### L 501.1105, L500.3400, L100.0100, L101.9900, L501.6710 #### [facility] [address] [place], [address] MCHC (RBC) [Mass/Vol] 33.6 g/dL Normal 32-36 [facility] Comment on above: Performed By: #### L 501.1105, L500.3400, L100.0100, L101.9900, L501.6710 #### [facility] [address] [place], [address] MCV (RBC) [Entitic vol] 89.8 fL Normal 80-94 [facility] Comment on above: Performed By: #### L 501.1105, L500.3400, L100.0100, L101.9900, L501.6710 #### [facility] [address] [place], [address] Monocytes/100 WBC (Bld) 10.7 % High 0-10 [facility] Comment on above: Performed By: #### L 501.1105, L500.3400, L100.0100, L101.9900, L501.6710 #### [facility] [address] [place], [address] Neutrophils/100 WBC (Bld) 50.4 % Normal 47-70 [facility] Comment on above: Performed By: #### L 501.1105, L500.3400, L100.0100, L101.9900, L501.6710 #### [facility] [address] [place], [address] Nucleated RBC (Bld) [#/Vol] 0 10*3/uL Normal 0-5 [facility] Comment on above: Performed By: #### L 501.1105, L500.3400, L100.0100, L101.9900, L501.6710 #### [facility] [address] [place], [address] Platelet mean volume (Bld) [Entitic vol] 9.8 fL Normal 6.2-12.0 [facility] Comment on above: Performed By: #### L 501.1105, L500.3400, L100.0100, L101.9900, L501.6710 #### [facility] [address] [place], [address] Platelets (Bld) [#/Vol] 309 10*3/uL Normal 150-450 [facility] Comment on above: Performed By: #### L 501.1105, L500.3400, L100.0100, L101.9900, L501.6710 #### [facility] [address] [place], [address] RBC (Bld) [#/Vol] 5.27 10*6/uL Normal 4.6-6.2 [facility] Comment on above: Performed By: #### L 501.1105, L500.3400, L100.0100, L101.9900, [id number] #### [facility] [address] [place], [address] RDW SD 42.6 fl Normal 35.1-43.9 [facility] Comment on above: Performed By: #### L 501.1105, L500.3400, L100.0100, L101.9900, L501.6710 #### [facility] [address] [place], [place], [id number] [phone] WBC (Bld) [#/Vol] 6.2 10*3/uL Normal 4.4-11.0 [facility] Comment on above: Performed By: #### L 501.1105, L500.3400, L100.0100, L101.9900, L501.6710 #### [facility] [address] [place], [address] CRPon 05-07-2025 C-REACTIVE PROT < 3.00 Normal 0.0-3.0 [facility] Comment on above: Performed By: #### L 501.1105, L500.3400, L100.0100, L101.9900, L501.6710 #### [facility] [address] [place], [address] Eosinophil percentageon Eosinophils/100 WBC (Bld) 2.0 % 0-5 [facility] Erythrocyte Sed Rateon 05-07 SED RATE 2 mm/hr Normal 0-20 [facility] Comment on above: Performed By: #### L 501.1105, L500.3400, L100.0100, L101.9900, L501.6710 #### [facility] [address] [place], [place], [address] Erythrocyte distribution wid th ratioon 05-07-2025 Erythrocyte distribution width (RBC) [Ratio] 13.2 % 11.6-14.6 [facility] Erythrocyte distribution wid th standard deviationon 05-07-2025 Erythrocyte distribution width (RBC) [Ratio] 42.6 fl 35.1-43.9 [facility] Erythrocyte sedimentation ra sonya 05-07-2025 ESR (Bld) [Velocity] 2 mm/h 0-20 [facility] Glomerular filtration rate ( GFR) estimation/1.73 sq m using serum, plasma, or whole bon 05-07-2025 GFR/1.73 sq M.predicted among non-blacks MDRD (S/P/Bld) [Vol rate/Area] 82 mL/min/{1.73_m2} >60 [facility] Comment on above: mL/min/1.73m2 CKD-EP I Creatinine Equation (2020) Hematocrit Auto (Bld) [Volum e fraction]on 05-07-2025 Hematocrit (Bld) [Volume fraction] 47.3 % 40-54 [facility] Hemoglobin measurementon Hemoglobin (Bld) [Mass/Vol] 15.9 g/dL 13.0-16.5 [facility] Immature granulocytes/100 WB C Auto (Bld)on 05-07-2025 Immature granulocytes/100 WBC (Bld) 0.700 % 0.0-0.9 [facility] Comment on above: IG% - Immature Granu locytes (promyelocytes, myelocytes and metamyelocytes) > 1% indicates that a LEFT SHIFT is Present. Laboratory - Chemistry and C hemistry - challengeon 05-07-2025 AST [Catalytic activity/Vol] 27 U/L <38 [facility] Liver Profileon 05-07-2025 Albumin [Mass/Vol] 4.2 g/dL Normal 3.4-4.8 [facility] Comment on above: Performed By: #### L 501.1105, L500.3400, L100.0100, L101.9900, L501.6710 #### [facility] [address] [place], [address] ALK PHOS 100 U/L Normal 40-129 [facility] Comment on above: Performed By: #### L 501.1105, L500.3400, L100.0100, L101.9900, L501.6710 #### [facility] [address] [place], [address] ALT [Catalytic activity/Vol] 23 U/L Normal <=46 [facility] Comment on above: Performed By: #### L 501.1105, L500.3400, L100.0100, L101.9900, L501.6710 #### [facility] [address] [place], [address] AST [Catalytic activity/Vol] 27 U/L Normal <=37 [facility] Comment on above: Performed By: #### L 501.1105, L500.3400, L100.0100, L101.9900, L501.6710 #### [facility] [address] [place], [address] Bilirubin [Mass/Vol] 0.62 mg/dL Normal 0.00-1.30 [facility] Comment on above: Performed By: #### L 501.1105, L500.3400, L100.0100, L101.9900, L501.6710 #### [facility] [address] [place], [address] Bilirubin.direct [Mass/Vol] 0.23 mg/dL Normal 0.00-0.30 [facility] Comment on above: Performed By: #### L 501.1105, L500.3400, L100.0100, L101.9900, L501.6710 #### [facility] [address] [place], [address] Globulin (S) [Mass/Vol] 2.6 g/dL Normal 2.2-4.2 [facility] Comment on above: Performed By: #### L 501.1105, L500.3400, L100.0100, L101.9900, L501.6710 #### [facility] [address] [place], [address] T PROT 6.8 g/dL Normal 5.9-8.4 [facility] Comment on above: Performed By: #### L 501.1105, L500.3400, L100.0100, L101.9900, L501.6710 #### [facility] [address] [place], [address] MCV (mean corpuscular volume ) determinationon 05-07-2025 MCV (RBC) [Entitic vol] 89.8 fL 80-94 [facility] Mean corpuscular hemoglobin (MCH) determinationon 05-07-2025 MCH (RBC) [Entitic mass] 30.2 pg 27.0-32.0 [facility] Mean corpuscular hemoglobin concentration (MCHC) determinationon 05-07-2025 MCHC (RBC) [Mass/Vol] 33.6 g/dL 32-36 [facility] Mean platelet volume determi nationon 05-07-2025 Platelet mean volume (Bld) [Entitic vol] 9.8 fL 6.2-12.0 [facility] Monocyte percentageon 2024 Monocytes/100 WBC (Bld) 10.7 % High 0-10 [facility] Neutrophil percentageon Neutrophils/100 WBC (Bld) 50.4 % 47-70 [facility] Nucleated red blood cell per centageon 05-07-2025 Nucleated RBC/100 WBC (Bld) [Ratio] 0 % 0-5 [facility] Platelet counton 05-07-2025 Platelets (Bld) [#/Vol] 309 10*3/uL 150-450 [facility] RBC Auto (Bld) [#/Vol]on RBC (Bld) [#/Vol] 5.27 10*6/uL 4.6-6.2 [facility] Serum Creatinine AND GFRon 0 05-07-2025 Creatinine [Mass/Vol] 1.04 mg/dL Normal 0.70-1.20 [facility] Comment on above: Performed By: #### L 501.1105, L500.3400, L100.0100, L101.9900, L501.6710 #### [facility] [address] [place], [address] GFR/1.73 sq M.predicted among non-blacks MDRD (S/P/Bld) [Vol rate/Area] 82 mL/min/{1.73_m2} Normal >60 [facility] Comment on above: Result Comment: mL/m in/1.73m2 CKD-EPI Creatinine Equation (2020) Performed By: #### L 501.1105, L500.3400, L100.0100, L101.9900, L501.6710 #### [facility] [address] [place], [address] Serum creatinine measurement (mass/volume)on 05-07-2025 Creatinine [Mass/Vol] 1.04 mg/dL 0.70-1.20 [facility] Serum globulin measurementon 05-07-2025 Globulin (S) [Mass/Vol] 2.6 g/dL 2.2-4.2 [facility] Serum or plasma C reactive p rotein measurement (mass/volume)on 05-07-2025 CRP [Mass/Vol] mg/L 0.0-3.0 [facility] Serum or plasma alanine oleary otransferase (ALT) measurementon 05-07-2025 ALT [Catalytic activity/Vol] 23 U/L <47 [facility] Serum or plasma albumin kendra urement (mass/volume)on 05-07-2025 Albumin [Mass/Vol] 4.2 g/dL 3.4-4.8 [facility] Serum or plasma alkaline branden sphatase measurementon 05-07-2025 ALP [Catalytic activity/Vol] 100 U/L 40-129 [facility] Total proteinon 05-07-2025 Protein [Mass/Vol] 6.8 g/dL 5.9-8.4 [facility] White blood cell (WBC) count on 05-07-2025 WBC (Bld) [#/Vol] 6.2 10*3/uL 4.4-11.0 [facility] Absolute lymphocyte countOrd ered By: HEALTH ASSESSMENT on 04-10-2025 Lymphocytes Auto (Unsp spec) [#/Vol] 2.37 10*3/uL 0.83-4.51 [facility] Absolute neutrophil countOrd ered By: HEALTH ASSESSMENT on 04-10-2025 Neutrophils (Bld) [#/Vol] 3.6 10*3/uL 2.0-7.7 [facility] Absolute nucleated red blood cell countOrdered By: HEALTH ASSESSMENT on 04-10-2025 Nucleated RBC (Bld) [#/Vol] 0.00 10*3/uL 0-5 [facility] Anion gap in Serum or Plasma Ordered By: HEALTH ASSESSMENT on 04-10-2025 Anion gap [Moles/Vol] 13 mmol/L 5-15 [facility] BUN/creatinine ratioOrdered By: HEALTH ASSESSMENT on 04-10-2025 Urea nitrogen/Creatinine [Mass ratio] 14.0 mg/mg 10-20 [facility] Bilirubin Test strip Ql (U)O rdered By: HEALTH ASSESSMENT on 04-10-2025 Bilirubin Ql (U) Negative Negative [facility] Bilirubin directOrdered By: HEALTH ASSESSMENT on 04-10-2025 Bilirubin.direct [Mass/Vol] 0.18 mg/dL 0.00-0.30 [facility] Comment on above: Hemolysis present, R esults could be affected. Hemolysis present, Results could be affected. Bilirubin, totalOrdered By: HEALTH ASSESSMENT on 04-10-2025 Bilirubin [Mass/Vol] 0.52 mg/dL 0.00-1.30 [facility] CBC, Employeeon 04-10-2025 Absolute Lymph 2.37 X10 3/uL Normal 0.83-4.51 [facility] Comment on above: Order Comment: BE Cobb SEND LIPID,BMP CBCD TO DR. LONG Performed By: #### L 501.1105, L500.3400, L100.0100, L101.9900, L501.6710 #### [facility] [address] [place], [address] Absolute Neut 3.6 X10 3/uL Normal 2.0-7.7 [facility] Comment on above: Order Comment: BE Cobb SEND LIPID,BMP CBCD TO DR. LONG Performed By: #### L 501.1105, L500.3400, L100.0100, L101.9900, L501.6710 #### [facility] [address] [place], [address] Basophils/100 WBC (Bld) 0.7 % Normal 0-1 [facility] Comment on above: Order Comment: BE Cobb SEND LIPID,BMP CBCD TO DR. LONG Performed By: #### L 501.1105, L500.3400, L100.0100, L101.9900, L501.6710 #### [facility] [address] [place], [address] Eosinophils/100 WBC (Bld) 1.9 % Normal 0-5 [facility] Comment on above: Order Comment: PLEAS E SEND LIPID,BMP CBCD TO DR. LONG Performed By: #### L 501.1105, L500.3400, L100.0100, L101.9900, L501.6710 #### [facility] [address] [place], [address] Erythrocyte distribution width (RBC) [Ratio] 13.0 % Normal 11.6-14.6 [facility] Comment on above: Order Comment: PLEAS E SEND LIPID,BMP CBCD TO DR. LONG Performed By: #### L 501.1105, L500.3400, L100.0100, L101.9900, L501.6710 #### [facility] [address] [place], [address] Hematocrit (Bld) [Volume fraction] 47.6 % Normal 40-54 [facility] Comment on above: Order Comment: PLEAS E SEND LIPID,BMP CBCD TO DR. LONG Performed By: #### L 501.1105, L500.3400, L100.0100, L101.9900, L501.6710 #### [facility] [address] [place], [address] Hemoglobin (Bld) [Mass/Vol] 16.2 g/dL Normal 13.0-16.5 [facility] Comment on above: Order Comment: PLEAS E SEND LIPID,BMP CBCD TO DR. LONG Performed By: #### L 501.1105, L500.3400, L100.0100, L101.9900, L501.6710 #### [facility] [address] [place], [address] Lymphocytes/100 WBC (Bld) 34.7 % Normal 19-41 [facility] Comment on above: Order Comment: PLEAS E SEND LIPID,BMP CBCD TO DR. LONG Performed By: #### L 501.1105, L500.3400, L100.0100, L101.9900, L501.6710 #### [facility] [address] [place], [address] MCH (RBC) [Entitic mass] 30.7 pg Normal 27.0-32.0 [facility] Comment on above: Order Comment: PLEAS E SEND LIPID,BMP CBCD TO DR. LONG Performed By: #### L 501.1105, L500.3400, L100.0100, L101.9900, L501.6710 #### [facility] [address] [place], [address] MCHC (RBC) [Mass/Vol] 34.0 g/dL Normal 32-36 [facility] Comment on above: Order Comment: PLEAS E SEND LIPID,BMP CBCD TO DR. LONG Performed By: #### L 501.1105, L500.3400, L100.0100, L101.9900, L501.6710 #### [facility] [address] [place], [address] MCV (RBC) [Entitic vol] 90.3 fL Normal 80-94 [facility] Comment on above: Order Comment: PLEAS E SEND LIPID,BMP CBCD TO DR. LONG Performed By: #### L 501.1105, L500.3400, L100.0100, L101.9900, L501.6710 #### [facility] [address] [place], [address] Monocytes/100 WBC (Bld) 9.2 % Normal 0-10 [facility] Comment on above: Order Comment: PLEAS E SEND LIPID,BMP CBCD TO DR. LONG Performed By: #### L 501.1105, L500.3400, L100.0100, L101.9900, L501.6710 #### [facility] [address] [place], [address] Neutrophils/100 WBC (Bld) 52.9 % Normal 47-70 [facility] Comment on above: Order Comment: PLEAS E SEND LIPID,BMP CBCD TO DR. LONG Performed By: #### L 501.1105, L500.3400, L100.0100, L101.9900, L501.6710 #### [facility] [address] [place], [address] NRBC # 0.00 10 3/uL Normal 0-5 [facility] Comment on above: Order Comment: PLEAS E SEND LIPID,BMP CBCD TO DR. LONG Performed By: #### L 501.1105, L500.3400, L100.0100, L101.9900, L501.6710 #### [facility] [address] [place], [address] Nucleated RBC (Bld) [#/Vol] 0 10*3/uL Normal 0-5 [facility] Comment on above: Order Comment: PLEAS E SEND LIPID,BMP CBCD TO DR. LONG Performed By: #### L 501.1105, L500.3400, L100.0100, L101.9900, L501.6710 #### [facility] [address] [place], [address] Platelet mean volume (Bld) [Entitic vol] 9.2 fL Normal 6.2-12.0 [facility] Comment on above: Order Comment: PLEAS E SEND LIPID,BMP CBCD TO DR. LONG Performed By: #### L 501.1105, L500.3400, L100.0100, L101.9900, L501.6710 #### [facility] [address] [place], [address] Platelets (Bld) [#/Vol] 325 10*3/uL Normal 150-450 [facility] Comment on above: Order Comment: BE Cobb SEND LIPID,BMP CBCD TO DR. LONG Performed By: #### L 501.1105, L500.3400, L100.0100, L101.9900, L501.6710 #### [facility] [address] [place], [address] RBC (Bld) [#/Vol] 5.27 10*6/uL Normal 4.6-6.2 [facility] Comment on above: Order Comment[facility],BMP CBCD TO DR. LONG Performed By: #### L 501.1105, L500.3400, L100.0100, L101.9900, L501.6710 #### [facility] [address] [place], [address] RDW SD 42.9 fl Normal 35.1-43.9 [facility] Comment on above: Order Comment: [facility] E SEND LIPID,BMP CBCD TO DR. LONG Performed By: #### L 501.1105, L500.3400, L100.0100, L101.9900, L501.6710 #### [facility] [address] [place], [address] WBC (Bld) [#/Vol] 6.8 10*3/uL Normal 4.4-11.0 [facility] Comment on above: Order Comment: [facility] E SEND LIPID,BMP CBCD TO DR. LONG Performed By: #### L 501.1105, L500.3400, L100.0100, L101.9900, L501.6710 #### [facility] [address] [place], [address] Calculated very low density lipoprotein (VLDL) cholesterol measurementOrdered By: HEALTH ASSESSMENT on 04-10-2025 Calculated very low density lipoprotein (VLDL) cholesterol measurement 60 mg/dL High 5-40 [facility] Carbon dioxide, total [Moles /volume] in Central venous bloodOrdered By: HEALTH ASSESSMENT on 04-10-2025 CO2 [Moles/Vol] 23.2 mmol/L 21.0-32.0 [facility] Chloride assayOrdered By: HE ALTH ASSESSMENT on 04-10-2025 Chloride [Moles/Vol] 103 mmol/L 98-108 [facility] Employee Profileon Albumin [Mass/Vol] 4.2 g/dL Normal 3.4-4.8 [facility] Comment on above: Order Comment: PLEAS E SEND LIPID,BMP CBCD TO DR. LONG Performed By: #### L 501.1105, L500.3400, L100.0100, L101.9900, L501.6710 #### [facility] [address] [place], [address] Albumin/Globulin [Mass ratio] 1.5 {ratio} Normal 0.9-2.4 [facility] Comment on above: Order Comment: PLEAS E SEND LIPID,BMP CBCD TO DR. LONG Performed By: #### L 501.1105, L500.3400, L100.0100, L101.9900, L501.6710 #### [facility] [address] [place], [address] ALK PHOS 98 U/L Normal 40-129 [facility] Comment on above: Order Comment: PLEAS E SEND LIPID,BMP CBCD TO DR. LONG Performed By: #### L 501.1105, L500.3400, L100.0100, L101.9900, L501.6710 #### [facility] [address] [place], [address] ALT [Catalytic activity/Vol] 22 U/L Normal <=46 [facility] Comment on above: Order Comment: PLEAS E SEND LIPID,BMP CBCD TO DR. LONG Performed By: #### L 501.1105, L500.3400, L100.0100, L101.9900, L501.6710 #### [facility] [address] [place], [address] AST [Catalytic activity/Vol] 27 U/L Normal <=37 [facility] Comment on above: Order Comment: PLEAS E SEND LIPID,BMP CBCD TO DR. LONG Result Comment: Hemo lysis present, Results??could be affected. ?? Performed By: #### L 501.1105, L500.3400, L100.0100, L101.9900, L501.6710 #### [facility] [address] [place], [address] Bilirubin [Mass/Vol] 0.52 mg/dL Normal 0.00-1.30 [facility] Comment on above: Order Comment: PLEAS E SEND LIPID,BMP CBCD TO DR. LONG Performed By: #### L 501.1105, L500.3400, L100.0100, L101.9900, L501.6710 #### [facility] [address] [place], [address] Bilirubin.direct [Mass/Vol] 0.18 mg/dL Normal 0.00-0.30 [facility] Comment on above: Order Comment: PLEAS E SEND LIPID,BMP CBCD TO DR. LONG Result Comment: Hemo lysis present, Results??could be affected. ?? Hemolysis present, Results??could be affected. ?? Performed By: #### L 501.1105, L500.3400, L100.0100, L101.9900, L501.6710 #### [facility] [address] [place], [address] BUN/CRE 14.0 RATIO Normal 10-20 [facility] Comment on above: Order Comment: PLEAS E SEND LIPID,BMP CBCD TO DR. LONG Performed By: #### L 501.1105, L500.3400, L100.0100, L101.9900, L501.6710 #### [facility] [address] [place], [address] Calcium [Mass/Vol] 9.0 mg/dL Normal 7.6-11.0 [facility] Comment on above: Order Comment: PLEAS E SEND LIPID,BMP CBCD TO DR. LONG Performed By: #### L 501.1105, L500.3400, L100.0100, L101.9900, L501.6710 #### [facility] [address] [place], [address] Chloride [Moles/Vol] 103 mmol/L Normal 98-108 [facility] Comment on above: Order Comment: PLEAS E SEND LIPID,BMP CBCD TO DR. LONG Performed By: #### L 501.1105, L500.3400, L100.0100, L101.9900, L501.6710 #### [facility] [address] [place], [address] CO2 [Moles/Vol] 23.2 mmol/L Normal 21.0-32.0 [facility] Comment on above: Order Comment: PLEAS E SEND LIPID,BMP CBCD TO DR. LONG Performed By: #### L 501.1105, L500.3400, L100.0100, L101.9900, L501.6710 #### [facility] [address] [place], [address] Creatinine [Mass/Vol] 0.89 mg/dL Normal 0.70-1.20 [facility] Comment on above: Order Comment: PLEAS E SEND LIPID,BMP CBCD TO DR. LONG Performed By: #### L 501.1105, L500.3400, L100.0100, L101.9900, L501.6710 #### [facility] [address] [place], [address] GAP 13 Normal 5-15 [facility] Comment on above: Order Comment: PLEAS E SEND LIPID,BMP CBCD TO DR. LONG Performed By: #### L 501.1105, L500.3400, L100.0100, L101.9900, L501.6710 #### [facility] [address] [place], [address] GFR/1.73 sq M.predicted among non-blacks MDRD (S/P/Bld) [Vol rate/Area] 98 mL/min/{1.73_m2} Normal >60 [facility] Comment on above: Order Comment: PLEAS E SEND LIPID,BMP CBCD TO DR. LONG Result Comment: mL/m in/1.73m2 CKD-EPI Creatinine Equation (2020) Performed By: #### L 501.1105, L500.3400, L100.0100, L101.9900, L501.6710 #### [facility] [address] [place], [address] Globulin (S) [Mass/Vol] 2.8 g/dL Normal 2.2-4.2 [facility] Comment on above: Order Comment: PLEAS E SEND LIPID,BMP CBCD TO DR. LONG Performed By: #### L 501.1105, L500.3400, L100.0100, L101.9900, L501.6710 #### [facility] [address] [place], [address] Glucose [Mass/Vol] 94 mg/dL Normal 70-99 [facility] Comment on above: Order Comment: PLEAS E SEND LIPID,BMP CBCD TO DR. LONG Performed By: #### L 501.1105, L500.3400, L100.0100, L101.9900, L501.6710 #### [facility] [address] [place], [address] LDH 218 U/L Normal 87-241 [facility] Comment on above: Order Comment: PLEAS E SEND LIPID,BMP CBCD TO DR. LONG Result Comment: Hemo lysis present, Results??could be affected. ?? Hemolysis present, Results??could be affected. ?? Hemolysis present, Results??could be affected. ?? Hemolysis present, Results??could be affected. ?? Performed By: #### L 501.1105, L500.3400, L100.0100, L101.9900, L501.6710 #### [facility] [address] [place], [address] Phosphate [Mass/Vol] 2.9 mg/dL Normal 2.7-4.5 [facility] Comment on above: Order Comment: PLEAS E SEND LIPID,BMP CBCD TO DR. LONG Performed By: #### L 501.1105, L500.3400, L100.0100, L101.9900, L501.6710 #### [facility] [address] [place], [address] Potassium [Moles/Vol] 3.9 mmol/L Normal 3.3-5.1 [facility] Comment on above: Order Comment: PLEAS E SEND LIPID,BMP CBCD TO DR. LONG Result Comment: Hemo lysis present, Results??could be affected. ?? Hemolysis present, Results??could be affected. ?? Hemolysis present, Results??could be affected. ?? Performed By: #### L 501.1105, L500.3400, L100.0100, L101.9900, L501.6710 #### [facility] [address] [place], [address] Sodium [Moles/Vol] 138 mmol/L Normal 133-145 [facility] Comment on above: Order Comment: PLEAS E SEND LIPID,BMP CBCD TO DR. LONG Performed By: #### L 501.1105, L500.3400, L100.0100, L101.9900, L501.6710 #### [facility] [address] [place], [address] T PROT 7.0 g/dL Normal 5.9-8.4 [facility] Comment on above: Order Comment: PLEAS E SEND LIPID,BMP CBCD TO DR. LONG Performed By: #### L 501.1105, L500.3400, L100.0100, L101.9900, L501.6710 #### [facility] [address] [place], [place], [id number] Urea nitrogen [Mass/Vol] 12 mg/dL Normal 4-19 [facility] Comment on above: Order Comment: PLEAS E SEND LIPID,BMP CBCD TO DR. LONG Performed By: #### L 501.1105, L500.3400, L100.0100, L101.9900, L501.6710 #### [facility] [address] [place], [place], [id number] URIC 5.6 mg/dL Normal 3.5-7.2 [facility] Comment on above: Order Comment: PLEAS E SEND LIPID,BMP CBCD TO DR. LONG Result Comment: The drugs N-Acetylcysteine and Metamizole may falsely depress this assay. Performed By: #### L 501.1105, L500.3400, L100.0100, L101.9900, L501.6710 #### [facility] [address] [place], [place], [id number] Erythrocyte distribution wid th ratioOrdered By: HEALTH ASSESSMENT on 04-10-2025 Erythrocyte distribution width (RBC) [Ratio] 13.0 % 11.6-14.6 [facility] Erythrocyte distribution wid th standard deviationOrdered By: HEALTH ASSESSMENT on 04-10-2025 Erythrocyte distribution width (RBC) [Ratio] 42.9 fl 35.1-43.9 [facility] Free T3on 04-10-2025 Free T3 [Mass/Vol] 2.6 pg/mL Normal 2.18-3.98 [facility] Comment on above: Performed By: #### L 501.1105, L500.3400, L100.0100, L101.9900, L501.6710 #### [facility] [address] [place], [place], [id number] Free L4Tsbnquw By: Ash aguirre on 04-10-2025 Free T3 [Mass/Vol] 2.6 pg/mL 2.18-3.98 [facility] Glomerular filtration rate ( GFR) estimation/1.73 sq m using serum, plasma, or whole bOrdered By: HEALTH ASSESSMENT on 04-10-2025 GFR/1.73 sq M.predicted among non-blacks MDRD (S/P/Bld) [Vol rate/Area] 98 mL/min/{1.73_m2} >60 [facility] Comment on above: mL/min/1.73m2 CKD-EP I Creatinine Equation (2020) Hematocrit Auto (Bld) [Volum e fraction]Ordered By: HEALTH ASSESSMENT on 04-10-2025 Hematocrit (Bld) [Volume fraction] 47.6 % 40-54 [facility] Hemoglobin measurementOrdere d By: HEALTH ASSESSMENT on 04-10-2025 Hemoglobin (Bld) [Mass/Vol] 16.2 g/dL 13.0-16.5 [facility] Ketones Test strip Ql (U)Ord ered By: HEALTH ASSESSMENT on 04-10-2025 Ketones Ql (U) Negative Negative [facility] LDL calc ser/plasOrdered By: HEALTH ASSESSMENT on 04-10-2025 Cholesterol in LDL [Mass/Vol] 93 mg/dL [facility] Comment on above: Dobmjfxvfy=597-846 m g/dL & Higher Fjzq=813 mg/dL or greaterFriedwald Equation for LDL-C Laboratory - Chemistry and C hemistry - challengeOrdered By: HEALTH ASSESSMENT on 04-10-2025 AST [Catalytic activity/Vol] 27 U/L <38 [facility] Comment on above: Hemolysis present, R esults could be affected. Lactate dehydrogenase (LDH) measurementOrdered By: HEALTH ASSESSMENT on 04-10-2025 LDH [Catalytic activity/Vol] 218 U/L 87-241 [facility] Comment on above: Hemolysis present, R esults could be affected. Hemolysis present, Results could be affected. Hemolysis present, Results could be affected. Hemolysis present, Results could be affected. MCV (mean corpuscular volume ) determinationOrdered By: HEALTH ASSESSMENT on 04-10-2025 MCV (RBC) [Entitic vol] 90.3 fL 80-94 [facility] Mean corpuscular hemoglobin (MCH) determinationOrdered By: HEALTH ASSESSMENT on 04-10-2025 MCH (RBC) [Entitic mass] 30.7 pg 27.0-32.0 [facility] Mean corpuscular hemoglobin concentration (MCHC) determinationOrdered By: HEALTH ASSESSMENT on 04-10-2025 MCHC (RBC) [Mass/Vol] 34.0 g/dL 32-36 [facility] Mean platelet volume determi nationOrdered By: HEALTH ASSESSMENT on 04-10-2025 Platelet mean volume (Bld) [Entitic vol] 9.2 fL 6.2-12.0 [facility] Neutrophil percentageOrdered By: HEALTH ASSESSMENT on 04-10-2025 Neutrophils/100 WBC (Bld) 52.9 % 47-70 [facility] Nitrite Test strip Ql (U)Ord ered By: HEALTH ASSESSMENT on 04-10-2025 Nitrite Ql (U) Negative Negative [facility] Nucleated red blood cell per centageOrdered By: HEALTH ASSESSMENT on 04-10-2025 Nucleated RBC/100 WBC (Bld) [Ratio] 0 % 0-5 [facility] Platelet countOrdered By: HE ALTH ASSESSMENT on 04-10-2025 Platelets (Bld) [#/Vol] 325 10*3/uL 150-450 [facility] Potassium measurement (mass/ volume)Ordered By: HEALTH ASSESSMENT on 04-10-2025 Potassium (Unsp spec) [Mass/Vol] 3.9 mmol/L 3.3-5.1 [facility] Comment on above: Hemolysis present, R esults could be affected. Hemolysis present, Results could be affected. Hemolysis present, Results could be affected. Protein Test strip Ql (U)Ord ered By: HEALTH ASSESSMENT on 04-10-2025 Protein Ql (U) 15 mg/dl High Negative [facility] RBC Auto (Bld) [#/Vol]Ordere d By: HEALTH ASSESSMENT on 04-10-2025 RBC (Bld) [#/Vol] 5.27 10*6/uL 4.6-6.2 [facility] Screening total cholesterol/ high density lipoprotein (HDL) cholesterol ratioOrdered By: HEALTH ASSESSMENT on 04-10-2025 Cholesterol.total/Richa sterol in HDL [Mass ratio] 4.21 {ratio} [facility] Serum creatinine measurement (mass/volume)Ordered By: HEALTH ASSESSMENT on 04-10-2025 Creatinine [Mass/Vol] 0.89 mg/dL 0.70-1.20 [facility] Serum globulin measurementOr dered By: HEALTH ASSESSMENT on 04-10-2025 Globulin (S) [Mass/Vol] 2.8 g/dL 2.2-4.2 [facility] Serum glucose measurement (m ass/volume)Ordered By: HEALTH ASSESSMENT on 04-10-2025 Glucose [Mass/Vol] 94 mg/dL 70-99 [facility] Serum or plasma alanine oleary otransferase (ALT) measurementOrdered By: HEALTH ASSESSMENT on 04-10-2025 ALT [Catalytic activity/Vol] 22 U/L <47 [facility] Serum or plasma albumin kendra urement (mass/volume)Ordered By: HEALTH ASSESSMENT on 04-10-2025 Albumin [Mass/Vol] 4.2 g/dL 3.4-4.8 [facility] Serum or plasma albumin/glob ulin mass ratioOrdered By: HEALTH ASSESSMENT on 04-10-2025 Albumin/Globulin [Mass ratio] 1.5 {ratio} 0.9-2.4 [facility] Serum or plasma alkaline branden sphatase measurementOrdered By: HEALTH ASSESSMENT on 04-10-2025 ALP [Catalytic activity/Vol] 98 U/L 40-129 [facility] Serum or plasma calcium kendra urement (mass/volume)Ordered By: HEALTH ASSESSMENT on 04-10-2025 Calcium [Mass/Vol] 9.0 mg/dL 7.6-11.0 [facility] Serum or plasma cholesterol in HDL measurement (mass/volume)Ordered By: HEALTH ASSESSMENT on 04-10-2025 Cholesterol in HDL [Mass/Vol] 48 mg/dL >40 [facility] Comment on above: National Cholesterol Education Program (NCEP) guidelines:<40 mg/dL: Low HDL-cholesterol (major risk factor for CHD)>= 60 mg/dL: High HDL-cholesterol (negative risk factor for CHD)HDL-cholesterol is affected by a number of factors, e.g. smoking, exercise, hormones, sex and age. Serum or plasma cholesterol measurement (mass/volume)Ordered By: HEALTH ASSESSMENT on 04-10-2025 Cholesterol [Mass/Vol] 200 mg/dL <201 [facility] Comment on above: Cholesterol level, D esirable <200 mg/dLBorderline high cholesterol 200-239 mg/dLHigh cholesterol >=240 mg/dLRecommendations of the NCEP Adult Treatment Panel for the following risk-cutoff thresholds for the [place] population. Serum or plasma urea nitroge n measurement (mass/volume)Ordered By: HEALTH ASSESSMENT on 04-10-2025 Urea nitrogen [Mass/Vol] 12 mg/dL 4-19 [facility] Serum or plasma uric acid me asurement (mass/volume)Ordered By: HEALTH ASSESSMENT on 04-10-2025 Urate [Mass/Vol] 5.6 mg/dL 3.5-7.2 [facility] Comment on above: The drugs N-Acetylcy steine and Metamizole may falsely depress this assay. Sodium levelOrdered By: HEAL TH ASSESSMENT on 04-10-2025 Sodium [Moles/Vol] 138 mmol/L 133-145 [facility] T4 Free Directon 04-10-2025 T4 FREE DIRECT 1.30 ng/dL Normal 0.76-1.46 [facility] Comment on above: Performed By: #### L 501.1105, L500.3400, L100.0100, L101.9900, L501.6710 #### [facility] [address] [place], [address] T4 freeOrdered By: Ash aguirre on 04-10-2025 Free T4 [Mass/Vol] 1.30 ng/dL 0.76-1.46 [facility] TSH DL <= 0.005 mIU/L QnOrde red By: Ash Long on 04-10-2025 TSH Qn 1.790 uIU/mL 0.300-4.20 0 [facility] Thyroid Stim Hormone (TSH)on 04-10-2025 TSH 1.790 uIU/mL Normal 0.300-4.20 0 [facility] Comment on above: Performed By: #### L 501.1105, L500.3400, L100.0100, L101.9900, L501.6710 #### [facility] [address] [place], [address] Total proteinOrdered By: HEQuyen LT ASSESSMENT on 04-10-2025 Protein [Mass/Vol] 7.0 g/dL 5.9-8.4 [facility] Triglycerides measurementOrd ered By: HEALTH ASSESSMENT on 04-10-2025 Triglyceride [Mass/Vol] 300 mg/dL High <199 [facility] Comment on above: The drugs N-Acetylcy steine and Metamizole may falsely depress this assay. Normal range: <150 mg/dLBorderline High: 150-199 mg/dLHigh: 200-499 mg/dLVery High: >500 mg/dL Urinalysis, Employeeon 04-10 BILIRUBIN URINE Negative Normal Negative [facility] Comment on above: Order Comment: BE Cobb SEND LIPID,BMP CBCD TO DR. Fatima, Random Performed By: #### L 501.1105, L500.3400, L100.0100, L101.9900, L501.6710 #### [facility] [address] [place], [address] Clarity (U) Clear Normal Clear [facility] Comment on above: Order Comment: BE Cobb SEND LIPID,BMP CBCD TO DR. Fatima, Random Performed By: #### L 501.1105, L500.3400, L100.0100, L101.9900, L501.6710 #### [facility] [address] [place], [address] Color (U) Yellow Normal Yellow [facility] Comment on above: Order Comment: BE Cobb SEND LIPID,BMP CBCD TO DR. Fatima, Random Performed By: #### L 501.1105, L500.3400, L100.0100, L101.9900, L501.6710 #### [facility] [address] [place], [address] GLUCOSE, UR Normal Normal Normal [facility] Comment on above: Order Comment: PLEAS E SEND LIPID,BMP CBCD TO DR. Fatima, Random Performed By: #### L 501.1105, L500.3400, L100.0100, L101.9900, L501.6710 #### [facility] [address] [place], [address] KETONE UR Negative Normal Negative [facility] Comment on above: Order Comment: PLEAS E SEND LIPID,BMP CBCD TO DR. Fatima, Random Performed By: #### L 501.1105, L500.3400, L100.0100, L101.9900, L501.6710 #### [facility] [address] [place], [address] LEUK ESTERASE 25 /ul Abnormal Negative [facility] Comment on above: Order Comment: PLEAS E SEND LIPID,BMP CBCD TO DR. Fatima, Random Performed By: #### L 501.1105, L500.3400, L100.0100, L101.9900, L501.6710 #### [facility] [address] [place], [address] Nitrite Ql (U) Negative Normal Negative [facility] Comment on above: Order Comment: PLEAS E SEND LIPID,BMP CBCD TO DR. Fatima, Random Performed By: #### L 501.1105, L500.3400, L100.0100, L101.9900, L501.6710 #### [facility] [address] [place], [address] OCCULT BLOOD-UR Negative Normal Negative [facility] Comment on above: Order Comment: PLEAS E SEND LIPID,BMP CBCD TO DR. Fatima, Random Performed By: #### L 501.1105, L500.3400, L100.0100, L101.9900, L501.6710 #### [facility] [address] [place], [address] pH UR 6.5 Normal 5.0 - 8.0 [facility] Comment on above: Order Comment: BE Cobb SEND LIPID,BMP CBCD TO DR. Fatima, Random Performed By: #### L 501.1105, L500.3400, L100.0100, L101.9900, L501.6710 #### [facility] [address] [place], [address] PROT DIPSTX 15 mg/dl Abnormal Negative [facility] Comment on above: Order Comment: LULUAS E SEND LIPID,BMP CBCD TO DR. Fatima, Random Performed By: #### L 501.1105, L500.3400, L100.0100, L101.9900, L501.6710 #### [facility] [address] [place], [address] SP.GR. DIPSTX 1.010 Normal 1.002-1.03 0 [facility] Comment on above: Order Comment: LULUHERMILO E SEND LIPID,BMP CBCD TO DR. Fatima, Random Performed By: #### L 501.1105, L500.3400, L100.0100, L101.9900, L501.6710 #### [facility] [address] [place], [address] UROBILI Normal Normal Normal [facility] Comment on above: Order Comment: LULUHERMILO E SEND LIPID,BMP CBCD TO DR. Fatima, Random Performed By: #### L 501.1105, L500.3400, L100.0100, L101.9900, L501.6710 #### [facility] [address] [place], [address] Urine clarityOrdered By: [facility] ASSESSMENT on 04-10-2025 Clarity (U) Clear Clear [facility] Urine color determinationOrd ered By: HEALTH ASSESSMENT on 04-10-2025 Color (U) Yellow Yellow [facility] Urine glucose detectionOrder ed By: HEALTH ASSESSMENT on 04-10-2025 Glucose Ql (U) Normal mg/dl Normal [facility] Urine leukocyte esterase det ection by dipstickOrdered By: HEALTH ASSESSMENT on 04-10-2025 Leukocyte esterase Test strip Ql (U) 25 /ul High Negative [facility] Urine pHOrdered By: HEALTH A SSESSMENT on 04-10-2025 pH (U) 6.5 [pH] 5.0 - 8.0 [facility] Urine specific gravity measu rementOrdered By: HEALTH ASSESSMENT on 04-10-2025 Specific gravity (U) [Rel density] 1.010 1.002-1.03 0 [facility] Urine urobilinogen measureme ntOrdered By: HEALTH ASSESSMENT on 04-10-2025 Urobilinogen Ql (U) Normal mg/dl Normal [facility] White blood cell (WBC) count Ordered By: HEALTH ASSESSMENT on 04-10-2025 WBC (Bld) [#/Vol] 6.8 10*3/uL 4.4-11.0 [facility] Ribs Uni Min 3V w/PA Cheston 04-08-2025 Ribs Uni Min 3V w/PA Chest [facility] [address] [place] [address] Ribs Uni Min 3V w/PA Chest MR#: [id number] Acct: [id number] Name: RAMU BARLOW Rep #: [id number] : 1965 M 60 From: Sanjeev Renner MD PCP: Dr. Ash Long MD Status: REG CLI Study: Ribs Uni Min 3V w/PA Chest Date of Exam: 04/08 Exam# [id number] Ordering Dr: Spencer Brush PA PROCEDURE: RIBS UNI MIN 3V W/PA CHEST 04/08/2025 REASON FOR EXAM: PAIN TECHNIQUE: RIBS UNI MIN 3V W/PA CHEST COMPARISON: September 15, 2020, March 19, 2020 FINDINGS: Findings: The lungs are clear. There is no pneumothorax or pleural effusion. The heart is normal size. Dedicated images of the right chest/ribs shows no fracture Other: No foreign body RAD/Ribs Uni Min 3V w/PA Chest IMPRESSION: No fracture or pneumothorax. Reading Location: [id number] CC: Dr. Ash Long MD; DINORA Edouard Tai Chi Instructor: Signed Normal [facility] Urgent Care Visit Reporton 0 04-08-2025 Urgent Care Visit Report [facility] [address], [address] [place] [address] OFFICE VISIT Date of Service: 04/08/25 MR#: [id number] Acct: [id number] Name: RAMU BARLOW Rep #: [id number] : 1965 Provider: DINORA Edouard Age/Sex: 60/M Location: [facility] Status: Signed Intake Vital Signs 02/25/25 14:58 04/08/25 11:14 Height 5 ft 10 in Weight: 216 lb BMI 30.9 BP 138/87 H 118/80 Blood Pressure Location Lt brachial Position Sitting Sitting Respiration 15 16 Pulse 77 65 Pulse Source Monitor Temp 98.4 F 98.3 F Temp Source Temporal Oral Pulse Oximetry (%) 97 98 Oxygen Delivery Method room air room air Intake Visit Reasons: concern for broken rib/ r side Chief Complaint: Right side rib pain Accompanied by: Self Is patient in pain?: Yes Pain scale (1-10): 2 Allergies No Known Allergies Allergy (Verified 04/08/25 11:14) Medications ???Medication ???Instructions ???Recorded ???Confirmed ???Type levothyroxine 100 mcg tablet 100 mcg PO DAILY 05/07/16 04/08/25 History adalimumab 10 mg/0.2 mL 40 mg subcut .COMPLEX 02/25/2512/28 History subcutaneous syringe kit Nurse's Note: Patient concerned for Right rib broken. Patient was playing football with his grandson last night and his grandson fell and he went to go over his grandson for we wouldn't all on him. Patient not sure if his arm went into his ribs or if he just hit his ribs right but Patient can't take a deep breath. [facility] Medical History (Updated 04/08/25 @ 11:24 by Spencer FARIAS PA) Contusion of right chest wall Abrasion of left little finger Contusion of [...] physical activity do you participate in: none danny/gnosticism: Adventism seatbelt use: always additional social history: pt denies smoking, denies vaping, denies marijuana use, denies edibles, denies using aspirin, denies using ibuprofen HPI HPI Chief Complaint: Right side rib pain Details: RAMU BARLOW, is a 60 M who presents to the office today for right rib pain s/p fall. Patient was playing football with his grandson last night and his grandson fell. Patient not sure if his arm went into his right anterior ribs or if he just hit his ribs. Patient notes pain is aggravated with taking a deep breath or to touch locally. No complaints of chest pressure with shortness of breath or dyspnea on exertion. PMH NC. No wczu-rbh-eqnwbmy products taken to assist. No other associated symptoms and no alleviating/aggravating factors. ROS Const Constitutional: No other (As above) Exam Const General: cooperative, healthy appearing and no acute distress Nutritional Appearance: average body habitus Orientation: alert and awake Chest Chest palpation inspection: normal inspection of the chest and abnormal palpation of chest wall (R ant. cw point tender to palpation) Resp Effort Inspection: normal respiratory effort and able to speak in complete sentences Auscultation: Bilateral: Clear to Auscultation Cardio Rate: regular rate Rhythm: regular rhythm Heart Sounds: S1 normal, S2 normal, no gallops, no murmurs and no rubs Pulses: radial pulses present GI Inspection: normal to inspection Skin General: no rashes or lesions noted Neuro General: patient alert, patient awake and gait normal Cognition: normal cognition Speech: speech normal Gait: normal gait Psych Appearance: grossly normal Mental Status: mental status grossly normal Mood: congruent m (more content not included)... Normal [facility] Folates, RBCon 03-04-2025 Fol.,Hemolysate 528.0 ng/mL Normal Not Estab. [facility] Comment on above: Order Comment: Test( s) 964470-Aax. B1, Whole Bloodwas developed and its performance characteristicsdetermined by [employer]. It has not been cleared or approvedby the Food and Drug Administration. Performed By: #### L 501.1105, L500.3400, L100.0100, L101.9900, L501.6710 #### [facility] [address] [place], [place], [address] Folate, RBC 1041 ng/mL Normal >498 [facility] Comment on above: Order Comment: Test( s) [id number]-Qyr. B1, Whole Bloodwas developed and its performance characteristicsdetermined by [employer]. It has not been cleared or approvedby the Food and Drug Administration. Performed By: #### L 501.1105, L500.3400, L100.0100, L101.9900, L501.6710 #### [facility] [address] [place], [place], [phone] (737) Hematocrit (Bld) [Volume fraction] 50.7 % Normal 37.5-51.0 [facility] Comment on above: Order Comment: Test( s) [id number]-Ttk. B1, Whole Bloodwas developed and its performance characteristicsdetermined by [employer]. It has not been cleared or approvedby the Food and Drug Administration. Performed By: #### L 501.1105, L500.3400, L100.0100, L101.9900, L501.6710 #### [facility] [address] [place], [place], [address] Vitamin B1, Thiamineon 03-04 VIT B1 THIAMINE 131.4 nmol/L Normal 66.5-200.0 [facility] Comment on above: Order Comment: Test( s) [id number]-Hyo. B1, Whole Bloodwas developed and its performance characteristicsdetermined by [employer]. It has not been cleared or approvedby the Food and Drug Administration. Result Comment: Perf ormed at: [facility] [address] [id number] Bull Rider: Klever Ortiz PhD, Phone: [phone] Performed at: [facility] [address] [id number] Bull Rider: Myrna Disla MD, Phone: [phone] Performed By: #### L 501.1105, L500.3400, L100.0100, L101.9900, L501.6710 #### [facility] [address] [place], [place], [address] Erythrocyte folate measureme nt with hematocritOrdered By: Daiana Jenkins on 02-28-2025 Hematocrit (Bld) [Volume fraction] 50.7 % 37.5-51.0 [facility] Magnesiumon 02-28-2025 Magnesium [Mass/Vol] 2.3 mg/dL High 1.5-2.2 [facility] Comment on above: Performed By: #### L 501.1105, L500.3400, L100.0100, L101.9900, L501.6710 #### [facility] [address] [place], [place], [address] Magnesium measurement (mass/ volume)Ordered By: Daiana Jenkins on 02-28-2025 Magnesium (Unsp spec) [Mass/Vol] 2.3 mg/dL High 1.5-2.2 [facility] Serum or plasma thiamine lito surement (mass/volume)Ordered By: Daiana Jenkins on 02-28-2025 Thiamine [Mass/Vol] 131.4 nmol/L 66.5-200.0 [facility] Comment on above: Performed at: CB - [address] [place], [place] [id number] Director: Klever Ortiz PhD, Phone: [phone] at: - [facility] [id number] Director: Myrna Disla MD, Phone: [phone] Vitamin B12on 02-28-2025 Cobalamin (Vitamin B12) [Mass/Vol] 280 pg/mL Normal 180-914 [facility] Comment on above: Performed By: #### L 501.1105, L500.3400, L100.0100, L101.9900, L501.6710 #### [facility] [address] [place], [address] Vitamin B12 ser/plasOrdered By: Daiana Jenkins on 02-28-2025 Cobalamin (Vitamin B12) [Mass/Vol] 280 pg/mL 180-914 [facility] Neurology Visit Reporton Neurology Visit Report [facility] [address], [address] [place] [address] OFFICE VISIT Date of Service: 02/25/25 MR#: [id number] Acct: [id number] Name: RAMU BARLOW Rep #: [id number] : 1965 Provider: BERNARDINO king Age/Sex: 59/M Location: [facility] Status: Signed HPI HPI Details: Interim History: Ramu returns for [...] normal a (more content not included)... Normal [facility] Absolute lymphocyte counton 02-06-2025 Lymphocytes Auto (Unsp spec) [#/Vol] 2.20 10*3/uL 0.83-4.51 [facility] Absolute neutrophil counton 02-06-2025 Neutrophils (Bld) [#/Vol] 2.5 10*3/uL 2.0-7.7 [facility] Automated lymphocyte count a s percentage of total leukocyteson 02-06-2025 Lymphocytes/100 WBC Auto (Unsp spec) 39.4 % 19-41 [facility] Basophil percentageon 2024 Basophils/100 WBC (Bld) 1.1 % High 0-1 [facility] Bilirubin directon Bilirubin.direct [Mass/Vol] 0.18 mg/dL 0.00-0.30 [facility] Bilirubin, totalon 02-06- Bilirubin [Mass/Vol] 0.51 mg/dL 0.00-1.30 [facility] CBC W/Diff, Automatedon Absolute Lymph 2.20 X10 3/uL Normal 0.83-4.51 [facility] Comment on above: Performed By: #### L 501.1105, L500.3400, L100.0100, L101.9900, L501.6710 #### [facility] [address] [place], [address] Absolute Neut 2.5 X10 3/uL Normal 2.0-7.7 [facility] Comment on above: Performed By: #### L 501.1105, L500.3400, L100.0100, L101.9900, L501.6710 #### [facility] [address] [place], [address] Basophils/100 WBC (Bld) 1.1 % High 0-1 [facility] Comment on above: Performed By: #### L 501.1105, L500.3400, L100.0100, L101.9900, L501.6710 #### [facility] [address] [place], [address] Eosinophils/100 WBC (Bld) 3.6 % Normal 0-5 [facility] Comment on above: Performed By: #### L 501.1105, L500.3400, L100.0100, L101.9900, L501.6710 #### [facility] [address] [place], [address] Erythrocyte distribution width (RBC) [Ratio] 13.0 % Normal 11.6-14.6 [facility] Comment on above: Performed By: #### L 501.1105, L500.3400, L100.0100, L101.9900, L501.6710 #### [facility] [address] [place], [address] Hematocrit (Bld) [Volume fraction] 47.1 % Normal 40-54 [facility] Comment on above: Performed By: #### L 501.1105, L500.3400, L100.0100, L101.9900, L501.6710 #### [facility] [address] [place], [address] Hemoglobin (Bld) [Mass/Vol] 15.9 g/dL Normal 13.0-16.5 [facility] Comment on above: Performed By: #### L 501.1105, L500.3400, L100.0100, L101.9900, L501.6710 #### [facility] [address] [place], [address] IG% 0.500 Normal 0.0-0.9 [facility] Comment on above: Result Comment: IG% - Immature Granulocytes (promyelocytes, myelocytes and metamyelocytes) > 1% indicates that a LEFT SHIFT is Present. Performed By: #### L 501.1105, L500.3400, L100.0100, L101.9900, L501.6710 #### [facility] [address] [place], [address] Lymphocytes/100 WBC (Bld) 39.4 % Normal 19-41 [facility] Comment on above: Performed By: #### L 501.1105, L500.3400, L100.0100, L101.9900, L501.6710 #### [facility] [address] [place], [address] MCH (RBC) [Entitic mass] 30.5 pg Normal 27.0-32.0 [facility] Comment on above: Performed By: #### L 501.1105, L500.3400, L100.0100, L101.9900, L501.6710 #### [facility] [address] [place], [address] MCHC (RBC) [Mass/Vol] 33.8 g/dL Normal 32-36 [facility] Comment on above: Performed By: #### L 501.1105, L500.3400, L100.0100, L101.9900, L501.6710 #### [facility] [address] [place], [address] MCV (RBC) [Entitic vol] 90.4 fL Normal 80-94 [facility] Comment on above: Performed By: #### L 501.1105, L500.3400, L100.0100, L101.9900, L501.6710 #### [facility] [address] [place], [address] Monocytes/100 WBC (Bld) 10.6 % High 0-10 [facility] Comment on above: Performed By: #### L 501.1105, L500.3400, L100.0100, L101.9900, L501.6710 #### [facility] [address] [place], [address] Neutrophils/100 WBC (Bld) 44.8 % Low 47-70 [facility] Comment on above: Performed By: #### L 501.1105, L500.3400, L100.0100, L101.9900, L501.6710 #### [facility] [address] [place], [address] Nucleated RBC (Bld) [#/Vol] 0 10*3/uL Normal 0-5 [facility] Comment on above: Performed By: #### L 501.1105, L500.3400, L100.0100, L101.9900, L501.6710 #### [facility] [address] [place], [address] Platelet mean volume (Bld) [Entitic vol] 9.6 fL Normal 6.2-12.0 [facility] Comment on above: Performed By: #### L 501.1105, L500.3400, L100.0100, L101.9900, L501.6710 #### [facility] [address] [place], [address] Platelets (Bld) [#/Vol] 321 10*3/uL Normal 150-450 [facility] Comment on above: Performed By: #### L 501.1105, L500.3400, L100.0100, L101.9900, L501.6710 #### [facility] [address] [place], [address] RBC (Bld) [#/Vol] 5.21 10*6/uL Normal 4.6-6.2 [facility] Comment on above: Performed By: #### L 501.1105, L500.3400, L100.0100, L101.9900, L501.6710 #### [facility] [address] [place], [address] RDW SD 42.9 fl Normal 35.1-43.9 [facility] Comment on above: Performed By: #### L 501.1105, L500.3400, L100.0100, L101.9900, L501.6710 #### [facility] [address] [place], [address] WBC (Bld) [#/Vol] 5.6 10*3/uL Normal 4.4-11.0 [facility] Comment on above: Performed By: #### L 501.1105, L500.3400, L100.0100, L101.9900, L501.6710 #### [facility] [address] [place], [address] CRPon 02-06-2025 C-REACTIVE PROT 3.12 mg/L High 0.0-3.0 [facility] Comment on above: Performed By: #### L 501.1105, L500.3400, L100.0100, L101.9900, L501.6710 #### [facility] [address] [place], [place], [address] Eosinophil percentageon 06- Eosinophils/100 WBC (Bld) 3.6 % 0-5 [facility] Erythrocyte Sed Rateon 02-06 SED RATE 7 mm/hr Normal 0-20 [facility] Comment on above: Performed By: #### L 501.1105, L500.3400, L100.0100, L101.9900, L501.6710 #### [facility] [address] [facility] [address] [place], [place], [id number] Erythrocyte distribution wid th ratioon 02-06-2025 Erythrocyte distribution width (RBC) [Ratio] 13.0 % 11.6-14.6 [facility] Erythrocyte distribution wid th standard deviationon 02-06-2025 Erythrocyte distribution width (RBC) [Ratio] 42.9 fl 35.1-43.9 [facility] Erythrocyte sedimentation ra sonya 02-06-2025 ESR (Bld) [Velocity] 7 mm/h 0-20 [facility] Glomerular filtration rate ( GFR) estimation/1.73 sq m using serum, plasma, or whole bon 02-06-2025 GFR/1.73 sq M.predicted among non-blacks MDRD (S/P/Bld) [Vol rate/Area] 96 mL/min/{1.73_m2} >60 [facility] Comment on above: mL/min/1.73m2 CKD-EP I Creatinine Equation (2020) Hematocrit Auto (Bld) [Volum e fraction]on 02-06-2025 Hematocrit (Bld) [Volume fraction] 47.1 % 40-54 [facility] Hemoglobin measurementon Hemoglobin (Bld) [Mass/Vol] 15.9 g/dL 13.0-16.5 [facility] Immature granulocytes/100 WB C Auto (Bld)on 02-06-2025 Immature granulocytes/100 WBC (Bld) 0.500 % 0.0-0.9 [facility] Comment on above: IG% - Immature Granu locytes (promyelocytes, myelocytes and metamyelocytes) > 1% indicates that a LEFT SHIFT is Present. Laboratory - Chemistry and C hemistry - challengeon 02-06-2025 AST [Catalytic activity/Vol] 27 U/L <38 [facility] Liver Profileon 02-06-2025 Albumin [Mass/Vol] 4.0 g/dL Normal 3.4-4.8 [facility] Comment on above: Performed By: #### L 501.1105, L500.3400, L100.0100, L101.9900, L501.6710 #### [facility] [address] [place], [address] ALK PHOS 87 U/L Normal 40-129 [facility] Comment on above: Performed By: #### L 501.1105, L500.3400, L100.0100, L101.9900, L501.6710 #### [facility] [address] [place], [address] ALT [Catalytic activity/Vol] 20 U/L Normal <=46 [facility] Comment on above: Performed By: #### L 501.1105, L500.3400, L100.0100, L101.9900, L501.6710 #### [facility] [address] [place], [address] AST [Catalytic activity/Vol] 27 U/L Normal <=37 [facility] Comment on above: Performed By: #### L 501.1105, L500.3400, L100.0100, L101.9900, L501.6710 #### [facility] [address] [place], [address] Bilirubin [Mass/Vol] 0.51 mg/dL Normal 0.00-1.30 [facility] Comment on above: Performed By: #### L 501.1105, L500.3400, L100.0100, L101.9900, L501.6710 #### [facility] [address] [place], [address] Bilirubin.direct [Mass/Vol] 0.18 mg/dL Normal 0.00-0.30 [facility] Comment on above: Performed By: #### L 501.1105, L500.3400, L100.0100, L101.9900, L501.6710 #### [facility] [address] [place], [address] Globulin (S) [Mass/Vol] 2.6 g/dL Normal 2.2-4.2 [facility] Comment on above: Performed By: #### L 501.1105, L500.3400, L100.0100, L101.9900, L501.6710 #### [facility] [address] [place], [address] T PROT 6.6 g/dL Normal 5.9-8.4 [facility] Comment on above: Performed By: #### L 501.1105, L500.3400, L100.0100, L101.9900, L501.6710 #### [facility] [address] [place], [address] MCV (mean corpuscular volume ) determinationon 02-06-2025 MCV (RBC) [Entitic vol] 90.4 fL 80-94 [facility] Mean corpuscular hemoglobin (MCH) determinationon 02-06-2025 MCH (RBC) [Entitic mass] 30.5 pg 27.0-32.0 [facility] Mean corpuscular hemoglobin concentration (MCHC) determinationon 02-06-2025 MCHC (RBC) [Mass/Vol] 33.8 g/dL 32-36 [facility] Mean platelet volume determi nationon 02-06-2025 Platelet mean volume (Bld) [Entitic vol] 9.6 fL 6.2-12.0 [facility] Monocyte percentageon 2024 Monocytes/100 WBC (Bld) 10.6 % High 0-10 [facility] Neutrophil percentageon 06-0 Neutrophils/100 WBC (Bld) 44.8 % Low 47-70 [facility] Nucleated red blood cell per centageon 02-06-2025 Nucleated RBC/100 WBC (Bld) [Ratio] 0 % 0-5 [facility] Platelet counton 02-06-2025 Platelets (Bld) [#/Vol] 321 10*3/uL 150-450 [facility] RBC Auto (Bld) [#/Vol]on RBC (Bld) [#/Vol] 5.21 10*6/uL 4.6-6.2 [facility] Serum Creatinine AND GFRon 0 02-06-2025 Creatinine [Mass/Vol] 0.92 mg/dL Normal 0.70-1.20 [facility] Comment on above: Performed By: #### L 501.1105, L500.3400, L100.0100, L101.9900, L501.6710 #### [facility] [address] [facility] [place], [place], [address] GFR/1.73 sq M.predicted among non-blacks MDRD (S/P/Bld) [Vol rate/Area] 96 mL/min/{1.73_m2} Normal >60 [facility] Comment on above: Result Comment: mL/m in/1.73m2 CKD-EPI Creatinine Equation (2020) Performed By: #### L 501.1105, L500.3400, L100.0100, L101.9900, L501.6710 #### [facility] [address] [place], [place], [address] Serum creatinine measurement (mass/volume)on 02-06-2025 Creatinine [Mass/Vol] 0.92 mg/dL 0.70-1.20 [facility] Serum globulin measurementon 02-06-2025 Globulin (S) [Mass/Vol] 2.6 g/dL 2.2-4.2 [facility] Serum or plasma C reactive p rotein measurement (mass/volume)on 02-06-2025 CRP [Mass/Vol] 3.12 mg/L High 0.0-3.0 [facility] Serum or plasma alanine oleary otransferase (ALT) measurementon 02-06-2025 ALT [Catalytic activity/Vol] 20 U/L <47 [facility] Serum or plasma albumin kendra urement (mass/volume)on 02-06-2025 Albumin [Mass/Vol] 4.0 g/dL 3.4-4.8 [facility] Serum or plasma alkaline branden sphatase measurementon 02-06-2025 ALP [Catalytic activity/Vol] 87 U/L 40-129 [facility] Total proteinon 02-06-2025 Protein [Mass/Vol] 6.6 g/dL 5.9-8.4 [facility] White blood cell (WBC) count on 02-06-2025 WBC (Bld) [#/Vol] 5.6 10*3/uL 4.4-11.0 [facility] Surgery Specimen Level Tosha 01-07-2025 Surgery Specimen Level IV Patient Age/Sex Location Account Attending Physician RAMU BARLOW 59/M LABSPEC [id number] DINORA Kapadia Specimen: [id number] Received: 01/07/25 Status: KIARA Cho Num: [id number] Spec Type: Lesion Subm Dr: DINORA Kapadia HEADER OPERATION: Shave removal PRE-OP DIAGNOSIS: [...] the specimen is submitted entirely in A1. [facility] 01-08-2025 CPT:21546 Patient Age/Sex Location Account Attending Physician RAMU BARLOW 59/M LABSPEC [id number] Jose JaniyaDINORA Signed (signature on file) Dr. Margarita Sethi MD 01/17/25 1251 Normal [facility] Comment on above: Performed By: #### L 501.1105, L500.3400, L100.0100, L101.9900, L501.6710 #### [facility] [address] [facility] [place], [address] Cardiovascular stress test r eportOrdered By: Wilmer Choi on 12-26-2024 Study report [facility] [address] [place] [address] MR#: [id number] Acct: [id number] Name: RAMU BARLOW Rep #: [id number] : 1965 59 From: Wilmer Choi MD Primary Care: Dr. Ash Long MD Status : REG CLI Referring Dr: Ash Long MD Sex: M C Stress Test Report [...] _ Wilmer Choi MD CC: Dr. 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 Ash Long MD Status: REG CLI Referring Dr: Ash Long MD Sex: M C Stress Test Report [...] Date Wilmer Choi MD CC: Dr. Ash Long MD Date Dictated: 12/26/241658 Date Transcribed: 12/26/241658 Tai Chi Instructor: [place] Signed Normal [facility] - Microbiology an d Antimicrobial susceptibilityOrdered By: Spencer Brush on 12-17-2024 SARS-CoV-2 (COVID-19) RNA ANGÉLICA+probe Ql (Unsp spec) Not detected [facility] No Panel InformationOrdered By: Spencer Brush on 12-17-2024 POC Nasal Swab Influenza A,B Not detected [facility] POC Nasal Swab RSV Detected [facility] Office Visit Reporton 2024 Office Visit Report [facility][1] Services [address] [place] [address] OFFICE VISIT Date of Service: 12/17/24 MR#: [id number] Acct: [id number] Patient: RAMU BARLOW Rep #: [id number] : 1965 Provider: DINORA Edouard Age/Sex: 59/M Location: [facility] Status: Signed Intake Vital Signs 02/09/24 15:43 Height 5 ft 10 in 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/ [facility] Chief Complaint: spot on left side neck, [...] Cosigner Signature: Date (if applicable) CC: Normal [facility] Urgent Care Visit Reporton 0 12-17-2024 Urgent Care Visit Report [facility] [address] [place] [address] OFFICE VISIT Date of Service: 12/17/24 MR#: [id number] Acct: [id number] Name: RAMU BARLOW Rep #: [id number] : 1965 Provider: DINORA Edouard Age/Sex: 59/M Location: [facility] Status: Signed Intake Vital Signs 02/09/24 15:43 [...] then yesterday he started having sinus presssure. [facility] Medical History (Updated 01/16/24 @ 12:30 by DINORA Shelton) Abrasion of left little finger Contusion of [...] physical activity do you participate in: none danny/gnosticism: Adventism seatbelt use: always additional social history: pt [...] recently dx???d w/ similar URI complaints. No zqjs-oop-utcvehg products taken to assist. Nonsmoker. No other [...] in offi (more content not included)... Normal [facility] Absolute lymphocyte countOrd ered By: Ash Long on 12-12-2024 Lymphocytes Auto (Unsp spec) [#/Vol] 2.48 10*3/uL 0.83-4.51 [facility] Absolute neutrophil countOrd ered By: Ash Long on 12-12-2024 Neutrophils (Bld) [#/Vol] 3.7 10*3/uL 2.0-7.7 [facility] Anion gap in Serum or Plasma Ordered By: Ash Long on 12-12-2024 Anion gap [Moles/Vol] 11 mmol/L 5-15 [facility] Automated lymphocyte count a s percentage of total leukocytesOrdered By: Ash Long on 12-12-2024 Lymphocytes/100 WBC Auto (Unsp spec) 34.1 % 19-41 [facility] BUN/creatinine ratioOrdered By: Ash Long on 12-12-2024 Urea nitrogen/Creatinine [Mass ratio] 15.7 mg/mg 10- [facility] Basic Metabolic Profile (BMP )on 12-12-2024 BUN/CRE 15.7 RATIO Normal - [facility] Comment on above: Performed By: #### L 501.1105, L500.3400, L100.0100, L101.9900, L501.6710 #### [facility] [address] [place], [address] Calcium [Mass/Vol] 9.0 mg/dL Normal 7.6-11.0 [facility] Comment on above: Performed By: #### L 501.1105, L500.3400, L100.0100, L101.9900, L501.6710 #### [facility] [address] [place], [address] Chloride [Moles/Vol] 103 mmol/L Normal 98-108 [facility] Comment on above: Performed By: #### L 501.1105, L500.3400, L100.0100, L101.9900, L501.6710 #### [facility] [address] [place], [address] CO2 [Moles/Vol] 24.9 mmol/L Normal 21.0-32.0 [facility] Comment on above: Performed By: #### L 501.1105, L500.3400, L100.0100, L101.9900, L501.6710 #### [facility] [address] [place], [address] Creatinine [Mass/Vol] 1.03 mg/dL Normal 0.70-1.20 [facility] Comment on above: Performed By: #### L 501.1105, L500.3400, L100.0100, L101.9900, L501.6710 #### [facility] [address] [place], [address] GAP 11 Normal 5-15 [facility] Comment on above: Performed By: #### L 501.1105, L500.3400, L100.0100, L101.9900, L501.6710 #### [facility] [address] [place], [address] GFR/1.73 sq M.predicted among non-blacks MDRD (S/P/Bld) [Vol rate/Area] 83 mL/min/{1.73_m2} Normal >60 [facility] Comment on above: Result Comment: mL/m in/1.73m2 CKD-EPI Creatinine Equation (2020) Performed By: #### L 501.1105, L500.3400, L100.0100, L101.9900, L501.6710 #### [facility] [address] [place], [address] Glucose [Mass/Vol] 93 mg/dL Normal 70-99 [facility] Comment on above: Performed By: #### L 501.1105, L500.3400, L100.0100, L101.9900, L501.6710 #### [facility] [address] [place], [address] Potassium [Moles/Vol] 4.1 mmol/L Normal 3.3-5.1 [facility] Comment on above: Performed By: #### L 501.1105, L500.3400, L100.0100, L101.9900, L501.6710 #### [facility] [address] [place], [address] Sodium [Moles/Vol] 138 mmol/L Normal 133-145 [facility] Comment on above: Performed By: #### L 501.1105, L500.3400, L100.0100, L101.9900, L501.6710 #### [facility] [address] [place], [address] Urea nitrogen [Mass/Vol] 16 mg/dL Normal 4-19 [facility] Comment on above: Performed By: #### L 501.1105, L500.3400, L100.0100, L101.9900, L501.6710 #### [facility] [address] [place], [address] Basophil percentageOrdered B y: Ash Long on 12-12-2024 Basophils/100 WBC (Bld) 1.0 % 0-1 [facility] CBC W/Diff, Automatedon 04-0 Absolute Lymph 2.48 X10 3/uL Normal 0.83-4.51 [facility] Comment on above: Performed By: #### L 501.1105, L500.3400, L100.0100, L101.9900, L501.6710 #### [facility] [address] [place], [address] Absolute Neut 3.7 X10 3/uL Normal 2.0-7.7 [facility] Comment on above: Performed By: #### L 501.1105, L500.3400, L100.0100, L101.9900, L501.6710 #### [facility] [address] [place], [address] Basophils/100 WBC (Bld) 1.0 % Normal 0-1 [facility] Comment on above: Performed By: #### L 501.1105, L500.3400, L100.0100, L101.9900, L501.6710 #### [facility] [address] [place], [address] Eosinophils/100 WBC (Bld) 2.1 % Normal 0-5 [facility] Comment on above: Performed By: #### L 501.1105, L500.3400, L100.0100, L101.9900, L501.6710 #### [facility] [address] [place], [address] Erythrocyte distribution width (RBC) [Ratio] 12.7 % Normal 11.6-14.6 [facility] Comment on above: Performed By: #### L 501.1105, L500.3400, L100.0100, L101.9900, L501.6710 #### [facility] [address] [place], [address] Hematocrit (Bld) [Volume fraction] 48.3 % Normal 40-54 [facility] Comment on above: Performed By: #### L 501.1105, L500.3400, L100.0100, L101.9900, L501.6710 #### [facility] [address] [place], [address] Hemoglobin (Bld) [Mass/Vol] 16.5 g/dL Normal 13.0-16.5 [facility] Comment on above: Performed By: #### L 501.1105, L500.3400, L100.0100, L101.9900, L501.6710 #### [facility] [address] [place], [address] IG% 0.700 Normal 0.0-0.9 [facility] Comment on above: Result Comment: IG% - Immature Granulocytes (promyelocytes, myelocytes and metamyelocytes) > 1% indicates that a LEFT SHIFT is Present. Performed By: #### L 501.1105, L500.3400, L100.0100, L101.9900, L501.6710 #### [facility] [address] [place], [address] Lymphocytes/100 WBC (Bld) 34.1 % Normal 19-41 [facility] Comment on above: Performed By: #### L 501.1105, L500.3400, L100.0100, L101.9900, L501.6710 #### [facility] [address] [place], [address] MCH (RBC) [Entitic mass] 30.7 pg Normal 27.0-32.0 [facility] Comment on above: Performed By: #### L 501.1105, L500.3400, L100.0100, L101.9900, L501.6710 #### [facility] [address] [place], [address] MCHC (RBC) [Mass/Vol] 34.2 g/dL Normal 32-36 [facility] Comment on above: Performed By: #### L 501.1105, L500.3400, L100.0100, L101.9900, L501.6710 #### [facility] [address] [place], [address] MCV (RBC) [Entitic vol] 89.8 fL Normal 80-94 [facility] Comment on above: Performed By: #### L 501.1105, L500.3400, L100.0100, L101.9900, L501.6710 #### [facility] [address] [place], [address] Monocytes/100 WBC (Bld) 10.7 % High 0-10 [facility] Comment on above: Performed By: #### L 501.1105, L500.3400, L100.0100, L101.9900, L501.6710 #### [facility] [address] [place], [address] Neutrophils/100 WBC (Bld) 51.4 % Normal 47-70 [facility] Comment on above: Performed By: #### L 501.1105, L500.3400, L100.0100, L101.9900, L501.6710 #### [facility] [address] [place], [address] Nucleated RBC (Bld) [#/Vol] 0 10*3/uL Normal 0-5 [facility] Comment on above: Performed By: #### L 501.1105, L500.3400, L100.0100, L101.9900, L501.6710 #### [facility] [address] [place], [address] Platelet mean volume (Bld) [Entitic vol] 9.8 fL Normal 6.2-12.0 [facility] Comment on above: Performed By: #### L 501.1105, L500.3400, L100.0100, L101.9900, L501.6710 #### [facility] [address] [place], [address] Platelets (Bld) [#/Vol] 346 10*3/uL Normal 150-450 [facility] Comment on above: Performed By: #### L 501.1105, L500.3400, L100.0100, L101.9900, L501.6710 #### [facility] [address] [place], [address] RBC (Bld) [#/Vol] 5.38 10*6/uL Normal 4.6-6.2 [facility] Comment on above: Performed By: #### L 501.1105, L500.3400, L100.0100, L101.9900, L501.6710 #### [facility] [address] [place], [address] RDW SD 41.6 fl Normal 35.1-43.9 [facility] Comment on above: Performed By: #### L 501.1105, L500.3400, L100.0100, L101.9900, L501.6710 #### [facility] [address] [place], [address] WBC (Bld) [#/Vol] 7.3 10*3/uL Normal 4.4-11.0 [facility] Comment on above: Performed By: #### L 501.1105, L500.3400, L100.0100, L101.9900, L501.6710 #### [facility] [address] [place], [address] Calculated very low density lipoprotein (VLDL) cholesterol measurementOrdered By: Ash Long on 12-12-2024 Calculated very low density lipoprotein (VLDL) cholesterol measurement 34 mg/dL 5-40 [facility] VLDL Cholesterol 34 mg/dL 5-40 [facility] Carbon dioxide, total [Moles /volume] in Central venous bloodOrdered By: Ash Long on 12-12-2024 CO2 [Moles/Vol] 24.9 mmol/L 21.0-32.0 [facility] Chloride assayOrdered By: Dinora Long on 12-12-2024 Chloride [Moles/Vol] 103 mmol/L 98-108 [facility] Eosinophil percentageOrdered By: Ash Long on 12-12-2024 Eosinophils/100 WBC (Bld) 2.1 % 0-5 [facility] Erythrocyte distribution wid th (RBC) [Ratio]Ordered By: Ash Long on 12-12-2024 Erythrocyte distribution width (RBC) [Entitic vol] 41.6 fL 35.1-43.9 [facility] Erythrocyte distribution wid th ratioOrdered By: Ash Long on 12-12-2024 Erythrocyte distribution width (RBC) [Ratio] 12.7 % 11.6-14.6 [facility] Erythrocyte distribution wid th standard deviationOrdered By: Ash Long on 12-12-2024 Erythrocyte distribution width (RBC) [Ratio] 41.6 fl 35.1-43.9 [facility] Free T3on 12-12-2024 Free T3 [Mass/Vol] 2.9 pg/mL Normal 2.18-3.98 [facility] Comment on above: Order Comment: N Performed By: #### L 501.1105, L500.3400, L100.0100, L101.9900, L501.6710 #### [facility] [address] [place], [place] [address], [address] Free Z5Ijczhmp By: Ash aguirre on 12-12-2024 Free T3 [Mass/Vol] 2.9 pg/mL 2.18-3.98 [facility] Free Triiodothyronine (T3) pg/dL 2.9 pg/mL 2.18-3.98 [facility] GFR/1.73 sq M.predicted nael g non-blacks MDRD (S/P/Bld) [Vol rate/Area]Ordered By: Ash Long on 12-12-2024 Estimated GFR (MDRD) Non-Af Amer 83 >60 [facility] Comment on above: mL/min/1.73m2 CKD-EP I Creatinine Equation (2020) Glomerular filtration rate ( GFR) estimation/1.73 sq m using serum, plasma, or whole bOrdered By: Ash Long on 12-12-2024 GFR/1.73 sq M.predicted among non-blacks MDRD (S/P/Bld) [Vol rate/Area] 83 mL/min/{1.73_m2} >60 [facility] Comment on above: mL/min/1.73m2 CKD-EP I Creatinine Equation (2020) Hematocrit Auto (Bld) [Volum e fraction]Ordered By: Ash Long on 12-12-2024 Hematocrit (Bld) [Volume fraction] 48.3 % 40-54 [facility] Hemoglobin measurementOrdere d By: Ash Long on 12-12-2024 Hemoglobin (Bld) [Mass/Vol] 16.5 g/dL 13.0-16.5 [facility] Immature granulocytes/100 WB C Auto (Bld)Ordered By: Ash Long on 12-12-2024 Immature granulocytes/100 WBC (Bld) 0.700 % 0.0-0.9 [facility] Comment on above: IG% - Immature Granu locytes (promyelocytes, myelocytes and metamyelocytes) > 1% indicates that a LEFT SHIFT is Present. LDL calc ser/plasOrdered By: Ash Long on 12-12-2024 Cholesterol in LDL [Mass/Vol] 109 mg/dL [facility] Comment on above: Sugxyvnkha=894-657 m g/dL & Higher Ukji=173 mg/dL or greater LDL Cholesterol, Calculated 109 mg/dL [facility] Comment on above: Nkwghqkpys=238-649 m g/dL & Higher Dkhc=567 mg/dL or greater Lipid Profileon 12-12-2024 CHOL:HDL 3.98 Normal [facility] Comment on above: Performed By: #### L 501.1105, L500.3400, L100.0100, L101.9900, L501.6710 #### [facility] [address] [place], [place], [id number] Cholesterol [Mass/Vol] 191 mg/dL Normal <=200 [facility] Comment on above: Result Comment: Chol esterol level, Desirable <200 mg/dL Borderline high cholesterol 200-239 mg/dL High cholesterol >=240 mg/dL Recommendations of the NCEP Adult Treatment Panel for the following risk-cutoff thresholds for the [place] population. Performed By: #### L 501.1105, L500.3400, L100.0100, L101.9900, L501.6710 #### [facility] [address] [place], [address] Cholesterol in HDL [Mass/Vol] 48 mg/dL Normal [facility] Comment on above: Result Comment: Alma Delia onal Cholesterol Education Program (NCEP) guidelines: <40 mg/dL: Low HDL-cholesterol (major risk factor for CHD) >= 60 mg/dL: High HDL-cholesterol (negative risk factor for CHD) HDL-cholesterol is affected by a number of factors, e.g. smoking, exercise, hormones, sex and age. Performed By: #### L 501.1105, L500.3400, L100.0100, L101.9900, L501.6710 #### [facility] [address] [place], [address] Cholesterol in LDL [Mass/Vol] 109 mg/dL Normal [facility] Comment on above: Result Comment: Bord lqyffp=829-255 mg/dL Higher Tzai=517 mg/dL or greater Performed By: #### L 501.1105, L500.3400, L100.0100, L101.9900, L501.6710 #### [facility] [address] [place], [address] Cholesterol in VLDL [Mass/Vol] 34 mg/dL Normal 5-40 [facility] Comment on above: Performed By: #### L 501.1105, L500.3400, L100.0100, L101.9900, L501.6710 #### [facility] [address] [place], [address] Triglyceride [Mass/Vol] 171 mg/dL Normal [facility] Comment on above: Result Comment: The drugs N-Acetylcysteine and Metamizole may falsely depress this assay. Normal range: <150 mg/dL Borderline High: 150-199 mg/dL High: 200-499 mg/dL Very High: >500 mg/dL Performed By: #### L 501.1105, L500.3400, L100.0100, L101.9900, L501.6710 #### [facility] [address] [place], [address] Lymphocytes Auto (Unsp spec) [#/Vol]Ordered By: Ash Long on 12-12-2024 Lymphocytes (Bld) [#/Vol] 2.48 10*3/uL 0.83-4.51 [facility] Lymphocytes/100 WBC Auto (Un sp spec)Ordered By: Ash Long on 12-12-2024 Lymphocytes/100 WBC (Bld) 34.1 % 19-41 [facility] MCV (mean corpuscular volume ) determinationOrdered By: Ash Long on 12-12-2024 MCV (RBC) [Entitic vol] 89.8 fL 80-94 [facility] Mean corpuscular hemoglobin (MCH) determinationOrdered By: Ash Long on 12-12-2024 MCH (RBC) [Entitic mass] 30.7 pg 27.0-32.0 [facility] Mean corpuscular hemoglobin concentration (MCHC) determinationOrdered By: Ash Long on 12-12-2024 MCHC (RBC) [Mass/Vol] 34.2 g/dL 32-36 [facility] Mean platelet volume determi nationOrdered By: Ash Long on 12-12-2024 Platelet mean volume (Bld) [Entitic vol] 9.8 fL 6.2-12.0 [facility] Monocyte percentageOrdered B y: Ash Long on 12-12-2024 Monocytes/100 WBC (Bld) 10.7 % High 0-10 [facility] Neutrophil percentageOrdered By: Ash Long on 12-12-2024 Neutrophils/100 WBC (Bld) 51.4 % 47-70 [facility] Nucleated red blood cell per centageOrdered By: Ash Long on 12-12-2024 Nucleated RBC/100 WBC (Bld) [Ratio] 0 % 0-5 [facility] Platelet countOrdered By: Dinora Long on 12-12-2024 Platelets (Bld) [#/Vol] 346 10*3/uL 150-450 [facility] Potassium (Unsp spec) [Mass/ Vol]Ordered By: Ash Long on 12-12-2024 Potassium [Moles/Vol] 4.1 mmol/L 3.3-5.1 [facility] Potassium measurement (mass/ volume)Ordered By: Ash Long on 12-12-2024 Potassium (Unsp spec) [Mass/Vol] 4.1 mmol/L 3.3-5.1 [facility] RBC Auto (Bld) [#/Vol]Ordere d By: Ash Long on 12-12-2024 RBC (Bld) [#/Vol] 5.38 10*6/uL 4.6-6.2 [facility] Screening total cholesterol/ high density lipoprotein (HDL) cholesterol ratioOrdered By: Ash Long on 12-12-2024 Cholesterol.total/Richa sterol in HDL [Mass ratio] 3.98 {ratio} [facility] Serum creatinine measurement (mass/volume)Ordered By: Ash Long on 12-12-2024 Creatinine [Mass/Vol] 1.03 mg/dL 0.70-1.20 [facility] Serum glucose measurement (m ass/volume)Ordered By: Ash Long on 12-12-2024 Glucose [Mass/Vol] 93 mg/dL 70-99 [facility] Serum or plasma calcium kendra urement (mass/volume)Ordered By: Ash Long on 12-12-2024 Calcium [Mass/Vol] 9.0 mg/dL 7.6-11.0 [facility] Serum or plasma cholesterol in HDL measurement (mass/volume)Ordered By: Ash Long on 12-12-2024 Cholesterol in HDL [Mass/Vol] 48 mg/dL >40 [facility] Comment on above: National Cholesterol Education Program (NCEP) guidelines:<40 mg/dL: Low HDL-cholesterol (major risk factor for CHD)>= 60 mg/dL: High HDL-cholesterol (negative risk factor for CHD)HDL-cholesterol is affected by a number of factors, e.g. smoking, exercise, hormones, sex and age. Serum or plasma cholesterol measurement (mass/volume)Ordered By: Ash Long on 12-12-2024 Cholesterol [Mass/Vol] 191 mg/dL <201 [facility] Comment on above: Cholesterol level, D esirable <200 mg/dLBorderline high cholesterol 200-239 mg/dLHigh cholesterol >=240 mg/dLRecommendations of the NCEP Adult Treatment Panel for the following risk-cutoff thresholds for the [place] population. Serum or plasma urea nitroge n measurement (mass/volume)Ordered By: Ash Long on 12-12-2024 Urea nitrogen [Mass/Vol] 16 mg/dL 4-19 [facility] Sodium levelOrdered By: Ash Long on 12-12-2024 Sodium [Moles/Vol] 138 mmol/L 133-145 [facility] T4 Free Directon 12-12-2024 T4 FREE DIRECT 1.60 ng/dL High 0.76-1.46 [facility] Comment on above: Order Comment: N Performed By: #### L 501.1105, L500.3400, L100.0100, L101.9900, L501.6710 #### [facility] [address] [place], [address] T4 freeOrdered By: Ash aguirre on 12-12-2024 Free T4 [Mass/Vol] 1.60 ng/dL High 0.76-1.46 [facility] TSH DL <= 0.005 mIU/L QnOrde red By: Ash Long on 12-12-2024 Thyroid Stimulating Hormone (TSH) 2.000 uIU/mL 0.300-4.20 0 [facility] TSH Qn 2.000 uIU/mL 0.300-4.20 0 [facility] Thyroid Stim Hormone (TSH)on 12-12-2024 TSH 2.000 uIU/mL Normal 0.300-4.20 0 [facility] Comment on above: Performed By: #### L 501.1105, L500.3400, L100.0100, L101.9900, L501.6710 #### [facility] [address] [place], [address] Triglycerides measurementOrd ered By: Ash Long on 12-12-2024 Triglyceride [Mass/Vol] 171 mg/dL <199 [facility] Comment on above: The drugs N-Acetylcy steine and Metamizole may falsely depress this assay. Normal range: <150 mg/dLBorderline High: 150-199 mg/dLHigh: 200-499 mg/dLVery High: >500 mg/dL White blood cell (WBC) count Ordered By: Ash Long on 12-12-2024 WBC (Bld) [#/Vol] 7.3 10*3/uL 4.4-11.0 [facility] Absolute lymphocyte counton 11-07-2024 Lymphocytes Auto (Unsp spec) [#/Vol] 2.36 10*3/uL 0.83-4.51 [facility] Absolute neutrophil counton 11-07-2024 Neutrophils (Bld) [#/Vol] 4.1 10*3/uL 2.0-7.7 [facility] Automated lymphocyte count a s percentage of total leukocyteson 11-07-2024 Lymphocytes/100 WBC Auto (Unsp spec) 32.2 % 19-41 [facility] Basophil percentageon 2024 Basophils/100 WBC (Bld) 1.0 % 0-1 [facility] Bilirubin directon Bilirubin.direct [Mass/Vol] 0.17 mg/dL 0.00-0.30 [facility] Comment on above: Hemolysis present, R esults could be affected. Bilirubin, totalon Bilirubin [Mass/Vol] 0.49 mg/dL 0.00-1.30 [facility] CBC W/Diff, Automatedon Absolute Lymph 2.36 X10 3/uL Normal 0.83-4.51 [facility] Comment on above: Performed By: #### L 501.1105, L500.3400, L100.0100, L101.9900, L501.6710 #### [facility] [address] [place], [address] Absolute Neut 4.1 X10 3/uL Normal 2.0-7.7 [facility] Comment on above: Performed By: #### L 501.1105, L500.3400, L100.0100, L101.9900, L501.6710 #### [facility] [address] [place], [address] Basophils/100 WBC (Bld) 1.0 % Normal 0-1 [facility] Comment on above: Performed By: #### L 501.1105, L500.3400, L100.0100, L101.9900, L501.6710 #### [facility] [address] [place], [address] Eosinophils/100 WBC (Bld) 1.8 % Normal 0-5 [facility] Comment on above: Performed By: #### L 501.1105, L500.3400, L100.0100, L101.9900, L501.6710 #### [facility] [address] [place], [address] Erythrocyte distribution width (RBC) [Ratio] 13.1 % Normal 11.6-14.6 [facility] Comment on above: Performed By: #### L 501.1105, L500.3400, L100.0100, L101.9900, L501.6710 #### [facility] [address] [place], [address] Hematocrit (Bld) [Volume fraction] 47.3 % Normal 40-54 [facility] Comment on above: Performed By: #### L 501.1105, L500.3400, L100.0100, L101.9900, L501.6710 #### [facility] [address] [place], [address] Hemoglobin (Bld) [Mass/Vol] 16.0 g/dL Normal 13.0-16.5 [facility] Comment on above: Performed By: #### L 501.1105, L500.3400, L100.0100, L101.9900, L501.6710 #### [facility] [address] [place], [address] IG% 0.500 Normal 0.0-0.9 [facility] Comment on above: Result Comment: IG% - Immature Granulocytes (promyelocytes, myelocytes and metamyelocytes) > 1% indicates that a LEFT SHIFT is Present. Performed By: #### L 501.1105, L500.3400, L100.0100, L101.9900, L501.6710 #### [facility] [address] [place], [address] Lymphocytes/100 WBC (Bld) 32.2 % Normal 19-41 [facility] Comment on above: Performed By: #### L 501.1105, L500.3400, L100.0100, L101.9900, L501.6710 #### [facility] [address] [place], [address] MCH (RBC) [Entitic mass] 30.6 pg Normal 27.0-32.0 [facility] Comment on above: Performed By: #### L 501.1105, L500.3400, L100.0100, L101.9900, L501.6710 #### [facility] [address] [place], [address] MCHC (RBC) [Mass/Vol] 33.8 g/dL Normal 32-36 [facility] Comment on above: Performed By: #### L 501.1105, L500.3400, L100.0100, L101.9900, L501.6710 #### [facility] [address] [place], [address] MCV (RBC) [Entitic vol] 90.4 fL Normal 80-94 [facility] Comment on above: Performed By: #### L 501.1105, L500.3400, L100.0100, L101.9900, L501.6710 #### [facility] [address] [place], [address] Monocytes/100 WBC (Bld) 9.4 % Normal 0-10 [facility] Comment on above: Performed By: #### L 501.1105, L500.3400, L100.0100, L101.9900, L501.6710 #### [facility] [address] [place], [address] Neutrophils/100 WBC (Bld) 55.1 % Normal 47-70 [facility] Comment on above: Performed By: #### L 501.1105, L500.3400, L100.0100, L101.9900, L501.6710 #### [facility] [address] [place], [address] Nucleated RBC (Bld) [#/Vol] 0 10*3/uL Normal 0-5 [facility] Comment on above: Performed By: #### L 501.1105, L500.3400, L100.0100, L101.9900, L501.6710 #### [facility] [address] [place], [address] Platelet mean volume (Bld) [Entitic vol] 9.4 fL Normal 6.2-12.0 [facility] Comment on above: Performed By: #### L 501.1105, L500.3400, L100.0100, L101.9900, L501.6710 #### [facility] [address] [place], [address] Platelets (Bld) [#/Vol] 338 10*3/uL Normal 150-450 [facility] Comment on above: Performed By: #### L 501.1105, L500.3400, L100.0100, L101.9900, L501.6710 #### [facility] [address] [place], [address] RBC (Bld) [#/Vol] 5.23 10*6/uL Normal 4.6-6.2 [facility] Comment on above: Performed By: #### L 501.1105, L500.3400, L100.0100, L101.9900, L501.6710 #### [facility] [address] [place], [address] RDW SD 43.1 fl Normal 35.1-43.9 [facility] Comment on above: Performed By: #### L 501.1105, L500.3400, L100.0100, L101.9900, L501.6710 #### [facility] [address] [place], [address] WBC (Bld) [#/Vol] 7.3 10*3/uL Normal 4.4-11.0 [facility] Comment on above: Performed By: #### L 501.1105, L500.3400, L100.0100, L101.9900, L501.6710 #### [facility] [address] [place], [address] CRPon 11-07-2024 C-REACTIVE PROT < 3.00 Normal 0.0-3.0 [facility] Comment on above: Performed By: #### L 501.1105, L500.3400, L100.0100, L101.9900, L501.6710 #### [facility] [address] [place], [address] CRP [Mass/Vol]on 11-07-2024 C-Reactive Protein Extended Range < 3.00 mg/L 0.0-3.0 [facility] Eosinophil percentageon Eosinophils/100 WBC (Bld) 1.8 % 0-5 [facility] Erythrocyte Sed Rateon 11-07 SED RATE 1 mm/hr Normal 0-20 [facility] Comment on above: Performed By: #### L 501.1105, L500.3400, L100.0100, L101.9900, L501.6710 #### [facility] [address] [place], [address] Erythrocyte distribution wid th ratioon 11-07-2024 Erythrocyte distribution width (RBC) [Ratio] 13.1 % 11.6-14.6 [facility] Erythrocyte distribution wid th standard deviationon 11-07-2024 Erythrocyte distribution width (RBC) [Entitic vol] 43.1 fL 35.1-43.9 [facility] Erythrocyte distribution width (RBC) [Ratio] 43.1 fl 35.1-43.9 [facility] Erythrocyte sedimentation ra sonya 11-07-2024 ESR (Bld) [Velocity] 1 mm/h 0-20 [facility] GFR/1.73 sq M.predicted nael g non-blacks MDRD (S/P/Bld) [Vol rate/Area]on 11-07-2024 Estimated GFR (MDRD) Non-Af Amer 91 >60 [facility] Comment on above: mL/min/1.73m2 CKD-EP I Creatinine Equation (2020) Glomerular filtration rate ( GFR) estimation/1.73 sq m using serum, plasma, or whole bon 11-07-2024 GFR/1.73 sq M.predicted among non-blacks MDRD (S/P/Bld) [Vol rate/Area] 91 mL/min/{1.73_m2} >60 [facility] Comment on above: mL/min/1.73m2 CKD-EP I Creatinine Equation (2020) Hematocrit Auto (Bld) [Volum e fraction]on 11-07-2024 Hematocrit (Bld) [Volume fraction] 47.3 % 40-54 [facility] Hemoglobin measurementon Hemoglobin (Bld) [Mass/Vol] 16.0 g/dL 13.0-16.5 [facility] Immature granulocytes/100 WB C Auto (Bld)on 11-07-2024 Immature granulocytes/100 WBC (Bld) 0.500 % 0.0-0.9 [facility] Comment on above: IG% - Immature Granu locytes (promyelocytes, myelocytes and metamyelocytes) > 1% indicates that a LEFT SHIFT is Present. Laboratory - Chemistry and C hemistry - challengeon 11-07-2024 AST [Catalytic activity/Vol] 27 U/L <38 [facility] Comment on above: Hemolysis present, R esults could be affected. Liver Profileon 11-07-2024 Albumin [Mass/Vol] 4.2 g/dL Normal 3.4-4.8 [facility] Comment on above: Order Comment: CBCD Performed By: #### L 501.1105, L500.3400, L100.0100, L101.9900, L501.6710 #### [facility] [address] [place], [address] ALK PHOS 97 U/L Normal 40-129 [facility] Comment on above: Order Comment: CBCD Performed By: #### L 501.1105, L500.3400, L100.0100, L101.9900, L501.6710 #### [facility] [address] [place], [address] ALT [Catalytic activity/Vol] 19 U/L Normal <=46 [facility] Comment on above: Order Comment: CBCD Performed By: #### L 501.1105, L500.3400, L100.0100, L101.9900, L501.6710 #### [facility] [address] [place], [address] AST [Catalytic activity/Vol] 27 U/L Normal <=37 [facility] Comment on above: Order Comment: CBCD Result Comment: Hemo lysis present, Results??could be affected. ?? Performed By: #### L 501.1105, L500.3400, L100.0100, L101.9900, L501.6710 #### [facility] [address] [place], [address] Bilirubin [Mass/Vol] 0.49 mg/dL Normal 0.00-1.30 [facility] Comment on above: Order Comment: CBCD Performed By: #### L 501.1105, L500.3400, L100.0100, L101.9900, L501.6710 #### [facility] [address] [place], [address] Bilirubin.direct [Mass/Vol] 0.17 mg/dL Normal 0.00-0.30 [facility] Comment on above: Order Comment: CBCD Result Comment: Hemo lysis present, Results??could be affected. ?? Performed By: #### L 501.1105, L500.3400, L100.0100, L101.9900, L501.6710 #### [facility] [address] [place], [address] Globulin (S) [Mass/Vol] 2.7 g/dL Normal 2.2-4.2 [facility] Comment on above: Order Comment: CBCD Performed By: #### L 501.1105, L500.3400, L100.0100, L101.9900, L501.6710 #### [facility] [address] [place], [address] T PROT 6.8 g/dL Normal 5.9-8.4 [facility] Comment on above: Order Comment: CBCD Performed By: #### L 501.1105, L500.3400, L100.0100, L101.9900, L501.6710 #### [facility] [address] [place], [address] Lymphocytes Auto (Unsp spec) [#/Vol]on 11-07-2024 Lymphocytes (Bld) [#/Vol] 2.36 10*3/uL 0.83-4.51 [facility] Lymphocytes/100 WBC Auto (Un sp spec)on 11-07-2024 Lymphocytes/100 WBC (Bld) 32.2 % 19-41 [facility] MCV (mean corpuscular volume ) determinationon 11-07-2024 MCV (RBC) [Entitic vol] 90.4 fL 80-94 [facility] Mean corpuscular hemoglobin (MCH) determinationon 11-07-2024 MCH (RBC) [Entitic mass] 30.6 pg 27.0-32.0 [facility] Mean corpuscular hemoglobin concentration (MCHC) determinationon 11-07-2024 MCHC (RBC) [Mass/Vol] 33.8 g/dL 32-36 [facility] Mean platelet volume determi nationon 11-07-2024 Platelet mean volume (Bld) [Entitic vol] 9.4 fL 6.2-12.0 [facility] Monocyte percentageon 2024 Monocytes/100 WBC (Bld) 9.4 % 0-10 [facility] Neutrophil percentageon 03-0 -2024 Neutrophils/100 WBC (Bld) 55.1 % 47-70 [facility] Nucleated red blood cell per centageon 11-07-2024 Nucleated RBC/100 WBC (Bld) [Ratio] 0 % 0-5 [facility] Platelet counton 11-07-2024 Platelets (Bld) [#/Vol] 338 10*3/uL 150-450 [facility] RBC Auto (Bld) [#/Vol]on RBC (Bld) [#/Vol] 5.23 10*6/uL 4.6-6.2 [facility] Serum Creatinine AND GFRon 0 11-07-2024 Creatinine [Mass/Vol] 0.95 mg/dL Normal 0.70-1.20 [facility] Comment on above: Performed By: #### L 501.1105, L500.3400, L100.0100, L101.9900, L501.6710 #### [facility] [address] [place], [place], [address] GFR/1.73 sq M.predicted among non-blacks MDRD (S/P/Bld) [Vol rate/Area] 91 mL/min/{1.73_m2} Normal >60 [facility] Comment on above: Result Comment: mL/m in/1.73m2 CKD-EPI Creatinine Equation (2020) Performed By: #### L 501.1105, L500.3400, L100.0100, L101.9900, L501.6710 #### [facility] [address] [place], [place], [address] Serum creatinine measurement (mass/volume)on 11-07-2024 Creatinine [Mass/Vol] 0.95 mg/dL 0.70-1.20 [facility] Serum globulin measurementon 11-07-2024 Globulin (S) [Mass/Vol] 2.7 g/dL 2.2-4.2 [facility] Serum or plasma C reactive p rotein measurement (mass/volume)on 11-07-2024 CRP [Mass/Vol] mg/L 0.0-3.0 [facility] Serum or plasma alanine oleary otransferase (ALT) measurementon 11-07-2024 ALT [Catalytic activity/Vol] 19 U/L <47 [facility] Serum or plasma albumin kendra urement (mass/volume)on 11-07-2024 Albumin [Mass/Vol] 4.2 g/dL 3.4-4.8 [facility] Serum or plasma alkaline branden sphatase measurementon 11-07-2024 ALP [Catalytic activity/Vol] 97 U/L 40-129 [facility] Total proteinon 11-07-2024 Protein [Mass/Vol] 6.8 g/dL 5.9-8.4 [facility] White blood cell (WBC) count on 11-07-2024 WBC (Bld) [#/Vol] 7.3 10*3/uL 4.4-11.0 [facility] Absolute neutrophil counton 08-08-2024 Neutrophils (Bld) [#/Vol] 3.6 10*3/uL 2.0-7.7 [facility] Basophil percentageon 2023 Basophils/100 WBC (Bld) 0.7 % 0-1 [facility] Bilirubin directon 4 Bilirubin.direct [Mass/Vol] 0.14 mg/dL 0.00-0.30 [facility] Bilirubin, totalon 4 Bilirubin [Mass/Vol] 0.50 mg/dL 0.20-1.00 [facility] Comment on above: For patients on eltr ombopag therapy, use of Dimension [place] TBIL is not recommended. C-reactive protein measureme nt by high sensitivity methodon 08-08-2024 C-Reactive Protein Extended Range < 2.90 mg/L 0.0-3.0 [facility] Comment on above: C-Reactive Protein ( CRP) provides useful information for thediagnosis, therapy and monitoring of inflammatory processesand associated diseases. For the evaluation of Relative Riskfor Cardiovascular Disease, a High Sensitivity CRP (HSCRP)should be ordered. CBC W/Diff, Automatedon 12-0 Absolute Lymph 2.28 X10 3/uL Normal 0.83-4.51 [facility] Comment on above: Performed By: #### L 501.1105, L100.0100, L500.3400, L101.9900, [id number] #### [facility] [address] [place], [address] Absolute Neut 3.6 X10 3/uL Normal 2.0-7.7 [facility] Comment on above: Performed By: #### L 501.1105, L100.0100, L500.3400, L101.9900, [id number] #### [facility] [address] [place], [address] Basophils/100 WBC (Bld) 0.7 % Normal 0-1 [facility] Comment on above: Performed By: #### L 501.1105, L100.0100, L500.3400, L101.9900, [id number] #### [facility] [address] [place], [address] Eosinophils/100 WBC (Bld) 1.6 % Normal 0-5 [facility] Comment on above: Performed By: #### L 501.1105, L100.0100, L500.3400, L101.9900, [id number] #### [facility] [address] [place], [address] Erythrocyte distribution width (RBC) [Ratio] 12.8 % Normal 11.6-14.6 [facility] Comment on above: Performed By: #### L 501.1105, L100.0100, L500.3400, L101.9900, [id number] #### [facility] [address] [place], [address] Hematocrit (Bld) [Volume fraction] 48.7 % Normal 40-54 [facility] Comment on above: Performed By: #### L 501.1105, L100.0100, L500.3400, L101.9900, [id number] #### [facility] [address] [place], [address] Hemoglobin (Bld) [Mass/Vol] 16.5 g/dL Normal 13.0-16.5 [facility] Comment on above: Performed By: #### L 501.1105, L100.0100, L500.3400, L101.9900, [id number] #### [facility] [address] [place], [address] IG% 0.600 Normal 0.0-0.9 [facility] Comment on above: Result Comment: IG% - Immature Granulocytes (promyelocytes, myelocytes and metamyelocytes) > 1% indicates that a LEFT SHIFT is Present. Performed By: #### L 501.1105, L100.0100, L500.3400, L101.9900, L501.6710 #### [facility] [address] [place], [address] Lymphocytes/100 WBC (Bld) 34.0 % Normal 19-41 [facility] Comment on above: Performed By: #### L 501.1105, L100.0100, L500.3400, L101.9900, [id number] #### [facility] [address] [place], [address] MCH (RBC) [Entitic mass] 30.6 pg Normal 27.0-32.0 [facility] Comment on above: Performed By: #### L 501.1105, L100.0100, L500.3400, L101.9900, [id number] #### [facility] [address] [place], [address] MCHC (RBC) [Mass/Vol] 33.9 g/dL Normal 32-36 [facility] Comment on above: Performed By: #### L 501.1105, L100.0100, L500.3400, L101.9900, [id number] #### [facility] [address] [place], [address] MCV (RBC) [Entitic vol] 90.2 fL Normal 80-94 [facility] Comment on above: Performed By: #### L 501.1105, L100.0100, L500.3400, L101.9900, [id number] #### [facility] [address] [place], [address] Monocytes/100 WBC (Bld) 9.9 % Normal 0-10 [facility] Comment on above: Performed By: #### L 501.1105, L100.0100, L500.3400, L101.9900, [id number] #### [facility] [address] [place], [address] Neutrophils/100 WBC (Bld) 53.2 % Normal 47-70 [facility] Comment on above: Performed By: #### L 501.1105, L100.0100, L500.3400, L101.9900, [id number] #### [facility] [address] [place], [address] Nucleated RBC (Bld) [#/Vol] 0 10*3/uL Normal 0-5 [facility] Comment on above: Performed By: #### L 501.1105, L100.0100, L500.3400, L101.9900, [id number] #### [facility] [address] [place], [address] Platelet mean volume (Bld) [Entitic vol] 9.6 fL Normal 6.2-12.0 [facility] Comment on above: Performed By: #### L 501.1105, L100.0100, L500.3400, L101.9900, [id number] #### [facility] [address] [place], [address] Platelets (Bld) [#/Vol] 308 10*3/uL Normal 150-450 [facility] Comment on above: Performed By: #### L 501.1105, L100.0100, L500.3400, L101.9900, [id number] #### [facility] [address] [place], [address] RBC (Bld) [#/Vol] 5.40 10*6/uL Normal 4.6-6.2 [facility] Comment on above: Performed By: #### L 501.1105, L100.0100, L500.3400, L101.9900, [id number] #### [facility] [address] [place], [address] RDW SD 42.4 fl Normal 35.1-43.9 [facility] Comment on above: Performed By: #### L 501.1105, L100.0100, L500.3400, L101.9900, [id number] #### [facility] [address] [place], [address] WBC (Bld) [#/Vol] 6.7 10*3/uL Normal 4.4-11.0 [facility] Comment on above: Performed By: #### L 501.1105, L100.0100, L500.3400, L101.9900, L501.6710 #### [facility] [address] [place], [address] CRPon 08-08-2024 C-REACTIVE PROT < 2.90 Normal 0.0-3.0 [facility] Comment on above: Result Comment: C-Re active Protein (CRP) provides useful information for the diagnosis, therapy and monitoring of inflammatory processes and associated diseases. For the evaluation of Relative Risk for Cardiovascular Disease, a High Sensitivity CRP (HSCRP) should be ordered. Performed By: #### L 501.1105, L100.0100, L500.3400, L101.9900, L501.6710 #### [facility] [address] [place], [place], [address] Eosinophil percentageon 12 Eosinophils/100 WBC (Bld) 1.6 % 0-5 [facility] Erythrocyte Sed Rateon 08-08 SED RATE < 1 Normal 0-20 [facility] Comment on above: Performed By: #### L 501.1105, L100.0100, L500.3400, L101.9900, L501.6710 #### [facility] [address] [place], [place], [address] Erythrocyte distribution wid th ratioon 08-08-2024 Erythrocyte distribution width (RBC) [Ratio] 12.8 % 11.6-14.6 [facility] Erythrocyte distribution wid th standard deviationon 08-08-2024 Erythrocyte distribution width (RBC) [Entitic vol] 42.4 fL 35.1-43.9 [facility] Erythrocyte sedimentation ra sonya 08-08-2024 ESR (Bld) [Velocity] mm/h 0-20 [facility] Estimated glomerular filtrat ion rate (GFR) Americanon 08-08-2024 Estimated GFR (MDRD) Amer 100 mL/min >60 [facility] Comment on above: GFR Calc Glomerular filtration rate ( GFR) estimationon 08-08-2024 Estimated GFR (MDRD) Non-Af Amer 83 mL/min >60 [facility] Comment on above: Non- GFR Calc Hematocrit Auto (Bld) [Volum e fraction]on 08-08-2024 Hematocrit (Bld) [Volume fraction] 48.7 % 40-54 [facility] Hemoglobin measurementon Hemoglobin (Bld) [Mass/Vol] 16.5 g/dL 13.0-16.5 [facility] Immature granulocytes/100 WB C Auto (Bld)on 08-08-2024 Immature granulocytes/100 WBC (Bld) 0.600 % 0.0-0.9 [facility] Comment on above: IG% - Immature Granu locytes (promyelocytes, myelocytes and metamyelocytes) > 1% indicates that a LEFT SHIFT is Present. Laboratory - Chemistry and C hemistry - challengeon 08-08-2024 AST [Catalytic activity/Vol] 24 U/L 15-37 [facility] Liver Profileon 08-08-2024 Albumin [Mass/Vol] 3.9 g/dL Normal 3.2-5.0 [facility] Comment on above: Performed By: #### L 501.1105, L100.0100, L500.3400, L101.9900, L501.6710 #### [facility] [address] [place], [address] ALK P 95 U/L Normal 45-117 [facility] Comment on above: Performed By: #### L 501.1105, L100.0100, L500.3400, L101.9900, L501.6710 #### [facility] [address] [place], [address] ALT [Catalytic activity/Vol] 29 U/L Normal 16-61 [facility] Comment on above: Performed By: #### L 501.1105, L100.0100, L500.3400, L101.9900, [id number] #### [facility] [address] [place], [address] AST [Catalytic activity/Vol] 24 U/L Normal 15-37 [facility] Comment on above: Performed By: #### L 501.1105, L100.0100, L500.3400, L101.9900, L501.6710 #### [facility] [address] [place], [address] Bilirubin [Mass/Vol] 0.50 mg/dL Normal 0.20-1.00 [facility] Comment on above: Result Comment: For patients on eltrombopag therapy, use of Dimension [place] TBIL is not recommended. Performed By: #### L 501.1105, L100.0100, L500.3400, L101.9900, L501.6710 #### [facility] [address] [place], [address] Bilirubin.direct [Mass/Vol] 0.14 mg/dL Normal 0.00-0.30 [facility] Comment on above: Performed By: #### L 501.1105, L100.0100, L500.3400, L101.9900, [id number] #### [facility] [address] [place], [address] Globulin (S) [Mass/Vol] 3.2 g/dL Normal 2.2-4.2 [facility] Comment on above: Performed By: #### L 501.1105, L100.0100, L500.3400, L101.9900, [id number] #### [facility] [address] [place], [address] T PROT 7.1 g/dL Normal 6.4-8.2 [facility] Comment on above: Performed By: #### L 501.1105, L100.0100, L500.3400, L101.9900, L501.6710 #### [facility] [address] [place], [address] Lymphocytes Auto (Unsp spec) [#/Vol]on 08-08-2024 Lymphocytes (Bld) [#/Vol] 2.28 10*3/uL 0.83-4.51 [facility] Lymphocytes/100 WBC Auto (Un sp spec)on 08-08-2024 Lymphocytes/100 WBC (Bld) 34.0 % 19-41 [facility] MCV (mean corpuscular volume ) determinationon 08-08-2024 MCV (RBC) [Entitic vol] 90.2 fL 80-94 [facility] Mean corpuscular hemoglobin (MCH) determinationon 08-08-2024 MCH (RBC) [Entitic mass] 30.6 pg 27.0-32.0 [facility] Mean corpuscular hemoglobin concentration (MCHC) determinationon 08-08-2024 MCHC (RBC) [Mass/Vol] 33.9 g/dL 32-36 [facility] Mean platelet volume determi nationon 08-08-2024 Platelet mean volume (Bld) [Entitic vol] 9.6 fL 6.2-12.0 [facility] Monocyte percentageon 2023 Monocytes/100 WBC (Bld) 9.9 % 0-10 [facility] Neutrophil percentageon 12-0 Neutrophils/100 WBC (Bld) 53.2 % 47-70 [facility] Nucleated red blood cell per centageon 08-08-2024 Nucleated RBC/100 WBC (Bld) [Ratio] 0 % 0-5 [facility] Platelet counton 08-08-2024 Platelets (Bld) [#/Vol] 308 10*3/uL 150-450 [facility] RBC Auto (Bld) [#/Vol]on RBC (Bld) [#/Vol] 5.40 10*6/uL 4.6-6.2 [facility] Serum Creatinine AND GFRon 1 10-09-2023 Creatinine [Mass/Vol] 0.98 mg/dL Normal 0.70-1.30 [facility] Comment on above: Result Comment: The validity of the calculated GFR GFRAA in patients over 70 years has not been determined. Clinical correlation is essential. Performed By: #### L 501.1105, L100.0100, L500.3400, L101.9900, L501.6710 #### [facility] [address] [place], [place], [id number] EST GFR - AA 100 mL/min Normal >60 [facility] Comment on above: Result Comment: Afri can German GFR Calc Performed By: #### L 501.1105, L100.0100, L500.3400, L101.9900, L501.6710 #### [facility] [address] [place], [place], [address] GFR/1.73 sq M.predicted among non-blacks MDRD (S/P/Bld) [Vol rate/Area] 83 mL/min/{1.73_m2} Normal >60 [facility] Comment on above: Result Comment: Non- GFR Calc Performed By: #### L 501.1105, L100.0100, L500.3400, L101.9900, L501.6710 #### [facility] [address] [place], [place], [id number] Serum globulin measurementon 08-08-2024 Globulin (S) [Mass/Vol] 3.2 g/dL 2.2-4.2 [facility] Serum or plasma alanine oleary otransferase (ALT) measurementon 08-08-2024 ALT [Catalytic activity/Vol] 29 U/L 16-61 [facility] Serum or plasma albumin kendra urement (mass/volume)on 08-08-2024 Albumin [Mass/Vol] 3.9 g/dL 3.2-5.0 [facility] Serum or plasma alkaline branden sphatase measurementon 08-08-2024 ALP [Catalytic activity/Vol] 95 U/L 45-117 [facility] Serum or plasma creatinine m easurement (mass/volume)on 08-08-2024 Creatinine [Mass/Vol] 0.98 mg/dL 0.70-1.30 [facility] Comment on above: The validity of the calculated GFR & GFRAA in patients over 70 years has not been determined. Clinical correlation is essential. Total proteinon 08-08-2024 Protein [Mass/Vol] 7.1 g/dL 6.4-8.2 [facility] White blood cell (WBC) count on 08-08-2024 WBC (Bld) [#/Vol] 6.7 10*3/uL 4.4-11.0 [facility] Absolute lymphocyte counton 09-15-2023 Lymphocytes Auto (Unsp spec) [#/Vol] 2.13 10*3/uL 0.83-4.51 [facility] Basophil percentageon 2023 Basophils/100 WBC (Bld) 0.5 % 0-1 [facility] Bilirubin [Mass/Vol] 0.70 mg/dL 0.20-1.00 [facility] Comment on above: For patients on eltr ombopag therapy, use of Dimension [place] TBIL is not recommended. Eosinophils/100 WBC (Bld) 3.0 % 0-5 [facility] Neutrophils (Bld) [#/Vol] 2.8 10*3/uL 2.0-7.7 [facility] Neutrophils/100 WBC (Bld) 49.5 % 47-70 [facility] Protein [Mass/Vol] 6.8 g/dL 6.4-8.2 [facility] WBC (Bld) [#/Vol] 5.6 10*3/uL 4.4-11.0 [facility] Blood erythrocytes count (nu mber/volume)on 09-15-2023 RBC (Bld) [#/Vol] 5.14 10*6/uL 4.6-6.2 [facility] Blood hemoglobin measurement (mass/volume)on 09-15-2023 Hemoglobin (Bld) [Mass/Vol] 16.1 g/dL 13.0-16.5 [facility] Blood lymphocytes/100 leukoc yteson 09-15-2023 Lymphocytes/100 WBC (Bld) 37.8 % 19-41 [facility] Blood monocytes/100 leukocyt eson 09-15-2023 Monocytes/100 WBC (Bld) 8.7 % 0-10 [facility] Blood platelet mean volumeon 09-15-2023 Platelet mean volume (Bld) [Entitic vol] 8.9 fL 6.2-12.0 [facility] Determination of erythrocyte mean corpuscular volume (MCV)on 09-15-2023 MCV (RBC) [Entitic vol] 88.9 fL 80-94 [facility] Direct bilirubinon Bilirubin.direct [Mass/Vol] 0.11 mg/dL 0.00-0.30 [facility] Erythrocyte sedimentation ra sonya 09-15-2023 ESR (Bld) [Velocity] 4 mm/h 0-20 [facility] Hematocrit Auto (Bld) [Volum e fraction]on 09-15-2023 Hematocrit (Bld) [Volume fraction] 45.7 % 40-54 [facility] Laboratory - Chemistry and C hemistry - challengeon 09-15-2023 ALP [Catalytic activity/Vol] 89 U/L 45-117 [facility] ALT [Catalytic activity/Vol] 22 U/L 16-61 [facility] Globulin (S) [Mass/Vol] 3.4 g/dL 2.2-4.2 [facility] Laboratory - Hematology and Cell countson 09-15-2023 Erythrocyte distribution width (RBC) [Entitic vol] 41.2 fL 35.1-43.9 [facility] Erythrocyte distribution width (RBC) [Ratio] 12.5 % 11.6-14.6 [facility] Immature granulocytes/100 WBC (Bld) 0.500 % 0.0-0.9 [facility] Comment on above: IG% - Immature Granu locytes (promyelocytes, myelocytes and metamyelocytes) > 1% indicates that a LEFT SHIFT is Present. MCH (RBC) [Entitic mass] 31.3 pg 27.0-32.0 [facility] Nucleated RBC/100 WBC (Bld) [Ratio] 0 % 0-5 [facility] MCHC Auto (RBC) [Mass/Vol]on 09-15-2023 MCHC (RBC) [Mass/Vol] 35.2 g/dL 32-36 [facility] No Panel Informationon 09-15 Estimated GFR (MDRD) Amer 100 mL/min >60 [facility] Comment on above: GFR Calc Estimated GFR (MDRD) Non-Af Amer 83 mL/min >60 [facility] Comment on above: Non- GFR Calc Platelets bldon 09-15-2023 Platelets (Bld) [#/Vol] 318 10*3/uL 150-450 [facility] Serum or plasma C reactive p rotein measurement (mass/volume)on 09-15-2023 CRP [Mass/Vol] mg/L 0.0-3.0 [facility] Comment on above: C-Reactive Protein ( CRP) provides useful information for thediagnosis, therapy and monitoring of inflammatory processesand associated diseases. For the evaluation of Relative Riskfor Cardiovascular Disease, a High Sensitivity CRP (HSCRP)should be ordered. Serum or plasma albumin kendra urement (mass/volume)on 09-15-2023 Albumin [Mass/Vol] 3.4 g/dL 3.2-5.0 [facility] Serum or plasma creatinine m easurement (mass/volume)on 09-15-2023 Creatinine [Mass/Vol] 0.98 mg/dL 0.70-1.30 [facility] Comment on above: The validity of the calculated GFR & GFRAA in patients over 70 years has not been determined. Clinical correlation is essential. Thin prep Papanicolaou smear with manual screeningon 09-15-2023 Thin prep Papanicolaou smear with manual screening 15 U/L 15-37 [facility] Absolute lymphocyte countOrd ered By: HEALTH ASSESSMENT on 06-22-2023 Lymphocytes Auto (Unsp spec) [#/Vol] 2.02 10*3/uL 0.83-4.51 [facility] Absolute reticulocyte countO rdered By: HEALTH ASSESSMENT on 06-22-2023 Reticulocytes (Bld) [#/Vol] 0.00 10*3/uL 0-5 [facility] Basophil percentageOrdered B y: HEALTH ASSESSMENT on 06-22-2023 Basophil percentage 2.9 mg/dL 2.5-4.9 [facility] Bilirubin [Mass/Vol] 0.30 mg/dL 0.20-1.00 [facility] Comment on above: For patients on eltr ombopag therapy, use of Dimension [place] TBIL is not recommended. Chloride [Moles/Vol] 109 mmol/L 98-107 [facility] Cholesterol [Mass/Vol] 181 mg/dL <200 [facility] Comment on above: <200 mg/dL Desirable 200-240 mg/dL Borderline >240 mg/dL High Risk Glucose [Mass/Vol] 85 mg/dL 74-106 [facility] LDH [Catalytic activity/Vol] 218 U/L 87-241 [facility] Comment on above: Slight Hemolysis, Re sult may be falsely increased. Neutrophils (Bld) [#/Vol] 2.8 10*3/uL 2.0-7.7 [facility] Potassium [Moles/Vol] 3.9 mmol/L 3.5-5.1 [facility] Comment on above: Slight Hemolysis, Re sult may be falsely increased. Protein [Mass/Vol] 7.2 g/dL 6.4-8.2 [facility] Sodium [Moles/Vol] 141 mmol/L 136-145 [facility] Triglyceride [Mass/Vol] 361 mg/dL <199 [facility] Comment on above: The drugs N-Acetylcy steine and Metamizole may falsely depress this assay.Serum Triglycerides Reference Interval Normal <150 mg/dL Borderline high 150 - 199 mg/dL High 200 - 499 mg/dL Very High > or = 500 mg/dL WBC (Bld) [#/Vol] 5.7 10*3/uL 4.4-11.0 [facility] Blood erythrocytes count (nu mber/volume)Ordered By: HEALTH ASSESSMENT on 06-22-2023 RBC (Bld) [#/Vol] 5.42 10*6/uL 4.6-6.2 [facility] Blood hemoglobin measurement (mass/volume)Ordered By: HEALTH ASSESSMENT on 06-22-2023 Hemoglobin (Bld) [Mass/Vol] 16.5 g/dL 13.0-16.5 [facility] Blood platelet mean volumeOr dered By: HEALTH ASSESSMENT on 06-22-2023 Platelet mean volume (Bld) [Entitic vol] 9.2 fL 6.2-12.0 [facility] Determination of erythrocyte mean corpuscular volume (MCV)Ordered By: HEALTH ASSESSMENT on 06-22-2023 MCV (RBC) [Entitic vol] 92.8 fL 80-94 [facility] Direct bilirubinOrdered By: HEALTH ASSESSMENT on 06-22-2023 Bilirubin.direct [Mass/Vol] 0.10 mg/dL 0.00-0.30 [facility] Hematocrit Auto (Bld) [Volum e fraction]Ordered By: HEALTH ASSESSMENT on 06-22-2023 Hematocrit (Bld) [Volume fraction] 50.3 % 40-54 [facility] Laboratory - Chemistry and C hemistry - challengeOrdered By: HEALTH ASSESSMENT on 06-22-2023 ALP [Catalytic activity/Vol] 99 U/L 45-117 [facility] ALT [Catalytic activity/Vol] 28 U/L 16-61 [facility] Cholesterol.total/Richa sterol in HDL [Mass ratio] 4.30 {ratio} [facility] CO2 [Moles/Vol] 28.0 mmol/L 21.0-32.0 [facility] Globulin (S) [Mass/Vol] 3.7 g/dL 2.2-4.2 [facility] Urea nitrogen/Creatinine [Mass ratio] 14.9 mg/mg 10-20 [facility] - Hematology and Cell countsOrdered By: HEALTH ASSESSMENT on 06-22-2023 Erythrocyte distribution width (RBC) [Entitic vol] 45.0 fL 35.1-43.9 [facility] Erythrocyte distribution width (RBC) [Ratio] 13.2 % 11.6-14.6 [facility] MCH (RBC) [Entitic mass] 30.4 pg 27.0-32.0 [facility] Nucleated RBC/100 WBC (Bld) [Ratio] 0 % 0-5 [facility] MCHC Auto (RBC) [Mass/Vol]Or dered By: HEALTH ASSESSMENT on 06-22-2023 MCHC (RBC) [Mass/Vol] 32.8 g/dL 32-36 [facility] No Panel InformationOrdered By: HEALTH ASSESSMENT on 06-22-2023 Estimated GFR (MDRD) Amer 106 mL/min >60 [facility] Comment on above: GFR Calc Estimated GFR (MDRD) Non-Af Amer 87 mL/min >60 [facility] Comment on above: Non- GFR Calc Platelets bldOrdered By: MINI LTH ASSESSMENT on 06-22-2023 Platelets (Bld) [#/Vol] 331 10*3/uL 150-450 [facility] Segmented neutrophils/100 WB C Auto (Bld)Ordered By: HEALTH ASSESSMENT on 06-22-2023 Segmented neutrophils/100 WBC (Bld) 48.5 % 47-70 [facility] Serum or plasma albumin kendra urement (mass/volume)Ordered By: HEALTH ASSESSMENT on 06-22-2023 Albumin [Mass/Vol] 3.5 g/dL 3.2-5.0 [facility] Serum or plasma albumin/glob ulin mass ratioOrdered By: HEALTH ASSESSMENT on 06-22-2023 Albumin/Globulin [Mass ratio] 0.9 {ratio} 0.9-2.4 [facility] Serum or plasma calcium kendra urement (mass/volume)Ordered By: HEALTH ASSESSMENT on 06-22-2023 Calcium [Mass/Vol] 8.3 mg/dL 8.5-10.1 [facility] Serum or plasma cholesterol in HDL measurement (mass/volume)Ordered By: HEALTH ASSESSMENT on 06-22-2023 Cholesterol in HDL [Mass/Vol] 42 mg/dL >40 [facility] Comment on above: The drugs N-Acetylcy steine and Metamizole may falsely depress this assay. Reference Range HDL <40 mg/dL Low HDL Cholesterol HDL >or= 60 mg/dL High HDL Cholesterol Serum or plasma cholesterol in VLDL measurement (mass/volume)Ordered By: HEALTH ASSESSMENT on 06-22-2023 Cholesterol in VLDL [Mass/Vol] 72 mg/dL 5-40 [facility] Serum or plasma creatinine m easurement (mass/volume)Ordered By: HEALTH ASSESSMENT on 06-22-2023 Creatinine [Mass/Vol] 0.94 mg/dL 0.70-1.30 [facility] Comment on above: The validity of the calculated GFR & GFRAA in patients over 70 years has not been determined. Clinical correlation is essential. Serum or plasma low density lipoprotein (LDL) cholesterol measurement (mass/volume)Ordered By: HEALTH ASSESSMENT on 06-22-2023 Cholesterol in LDL [Mass/Vol] 67 mg/dL 0-130 [facility] Serum or plasma urea nitroge n measurement (mass/volume)Ordered By: HEALTH ASSESSMENT on 06-22-2023 Urea nitrogen [Mass/Vol] 14 mg/dL 7-18 [facility] Serum or plasma uric acid me asurement (mass/volume)Ordered By: [facility] ASSESSMENT on 06-22-2023 Urate [Mass/Vol] 5.7 mg/dL 3.5-7.2 [facility] Comment on above: The drugs N-Acetylcy steine and Metamizole may falsely depress this assay. Thin prep Papanicolaou smear with manual screeningOrdered By: HEALTH ASSESSMENT on 06-22-2023 Thin prep Papanicolaou smear with manual screening 20 U/L 15-37 [facility] Comment on above: Slight Hemolysis, Re sult may be falsely increased. Thin prep Papanicolaou smear with manual screening 4 5-15 [facility] Absolute lymphocyte counton 06-16-2023 Lymphocytes Auto (Unsp spec) [#/Vol] 2.39 10*3/uL 0.83-4.51 [facility] Basophil percentageon 2022 Basophils/100 WBC (Bld) 0.9 % 0-1 [facility] Bilirubin [Mass/Vol] 0.60 mg/dL 0.20-1.00 [facility] Comment on above: For patients on eltr ombopag therapy, use of Dimension [place] TBIL is not recommended. Eosinophils/100 WBC (Bld) 2.4 % 0-5 [facility] Neutrophils (Bld) [#/Vol] 2.4 10*3/uL 2.0-7.7 [facility] Neutrophils/100 WBC (Bld) 42.7 % 47-70 [facility] Protein [Mass/Vol] 6.9 g/dL 6.4-8.2 [facility] WBC (Bld) [#/Vol] 5.5 10*3/uL 4.4-11.0 [facility] Blood erythrocytes count (nu mber/volume)on 06-16-2023 RBC (Bld) [#/Vol] 5.34 10*6/uL 4.6-6.2 [facility] Blood hemoglobin measurement (mass/volume)on 06-16-2023 Hemoglobin (Bld) [Mass/Vol] 15.9 g/dL 13.0-16.5 [facility] Blood lymphocytes/100 leukoc yteson 06-16-2023 Lymphocytes/100 WBC (Bld) 43.4 % 19-41 [facility] Blood monocytes/100 leukocyt eson 06-16-2023 Monocytes/100 WBC (Bld) 10.2 % 0-10 [facility] Blood platelet mean volumeon 06-16-2023 Platelet mean volume (Bld) [Entitic vol] 9.5 fL 6.2-12.0 [facility] Determination of erythrocyte mean corpuscular volume (MCV)on 06-16-2023 MCV (RBC) [Entitic vol] 91.9 fL 80-94 [facility] Direct bilirubinon Bilirubin.direct [Mass/Vol] 0.13 mg/dL 0.00-0.30 [facility] Erythrocyte sedimentation ra sonya 06-16-2023 ESR (Bld) [Velocity] 2 mm/h 0-20 [facility] Hematocrit Auto (Bld) [Volum e fraction]on 06-16-2023 Hematocrit (Bld) [Volume fraction] 49.1 % 40-54 [facility] Laboratory - Chemistry and C hemistry - challengeon 06-16-2023 ALP [Catalytic activity/Vol] 90 U/L 45-117 [facility] ALT [Catalytic activity/Vol] 26 U/L 16-61 [facility] Globulin (S) [Mass/Vol] 3.4 g/dL 2.2-4.2 [facility] Laboratory - Hematology and Cell countson 06-16-2023 Erythrocyte distribution width (RBC) [Entitic vol] 44.7 fL 35.1-43.9 [facility] Erythrocyte distribution width (RBC) [Ratio] 13.2 % 11.6-14.6 [facility] Immature granulocytes/100 WBC (Bld) 0.400 % 0.0-0.9 [facility] Comment on above: IG% - Immature Granu locytes (promyelocytes, myelocytes and metamyelocytes) > 1% indicates that a LEFT SHIFT is Present. MCH (RBC) [Entitic mass] 29.8 pg 27.0-32.0 [facility] Nucleated RBC/100 WBC (Bld) [Ratio] 0 % 0-5 [facility] MCHC Auto (RBC) [Mass/Vol]on 06-16-2023 MCHC (RBC) [Mass/Vol] 32.4 g/dL 32-36 [facility] No Panel Informationon 06-16 Estimated GFR (MDRD) Amer 106 mL/min >60 [facility] Comment on above: GFR Calc Estimated GFR (MDRD) Non-Af Amer 87 mL/min >60 [facility] Comment on above: Non- GFR Calc Platelets bldon 06-16-2023 Platelets (Bld) [#/Vol] 318 10*3/uL 150-450 [facility] Serum or plasma C reactive p rotein measurement (mass/volume)on 06-16-2023 CRP [Mass/Vol] mg/L 0.0-3.0 [facility] Comment on above: C-Reactive Protein ( CRP) provides useful information for thediagnosis, therapy and monitoring of inflammatory processesand associated diseases. For the evaluation of Relative Riskfor Cardiovascular Disease, a High Sensitivity CRP (HSCRP)should be ordered. Serum or plasma albumin kendra urement (mass/volume)on 06-16-2023 Albumin [Mass/Vol] 3.5 g/dL 3.2-5.0 [facility] Serum or plasma creatinine m easurement (mass/volume)on 06-16-2023 Creatinine [Mass/Vol] 0.94 mg/dL 0.70-1.30 [facility] Comment on above: The validity of the calculated GFR & GFRAA in patients over 70 years has not been determined. Clinical correlation is essential. Thin prep Papanicolaou smear with manual screeningon 06-16-2023 Thin prep Papanicolaou smear with manual screening 16 U/L 15-37 [facility] Absolute lymphocyte countOrd ered By: Jose Caro on 03-09-2023 Lymphocytes Auto (Unsp spec) [#/Vol] 3.42 10*3/uL 0.83-4.51 [facility] Basophil percentageOrdered B y: Jose Caro on 03-09-2023 Basophils/100 WBC (Bld) 0.8 % 0-1 [facility] Bilirubin [Mass/Vol] 0.50 mg/dL 0.20-1.00 [facility] Comment on above: For patients on eltr ombopag therapy, use of Dimension [place] TBIL is not recommended. Eosinophils/100 WBC (Bld) 2.7 % 0-5 [facility] Neutrophils (Bld) [#/Vol] 2.4 10*3/uL 2.0-7.7 [facility] Neutrophils/100 WBC (Bld) 36.7 % 47-70 [facility] Protein [Mass/Vol] 7.5 g/dL 6.4-8.2 [facility] WBC (Bld) [#/Vol] 6.6 10*3/uL 4.4-11.0 [facility] Blood erythrocytes count (nu mber/volume)Ordered By: Jose Caro on 03-09-2023 RBC (Bld) [#/Vol] 5.52 10*6/uL 4.6-6.2 [facility] Blood hemoglobin measurement (mass/volume)Ordered By: Jose Caro on 03-09-2023 Hemoglobin (Bld) [Mass/Vol] 16.5 g/dL 13.0-16.5 [facility] Blood lymphocytes/100 leukoc ytesOrdered By: Jose Caro on 03-09-2023 Lymphocytes/100 WBC (Bld) 51.9 % 19-41 [facility] Blood monocytes/100 leukocyt esOrdered By: Jose Caro on 03-09-2023 Monocytes/100 WBC (Bld) 7.3 % 0-10 [facility] Blood platelet mean volumeOr dered By: Jose Caro on 03-09-2023 Platelet mean volume (Bld) [Entitic vol] 9.6 fL 6.2-12.0 [facility] Determination of erythrocyte mean corpuscular volume (MCV)Ordered By: Jose Caro on 03-09-2023 MCV (RBC) [Entitic vol] 92.4 fL 80-94 [facility] Direct bilirubinOrdered By: Jose Caro on 03-09-2023 Bilirubin.direct [Mass/Vol] 0.11 mg/dL 0.00-0.30 [facility] Erythrocyte sedimentation ra teOrdered By: Jose Caro on 03-09-2023 ESR (Bld) [Velocity] 4 mm/h 0-20 [facility] Hematocrit Auto (Bld) [Volum e fraction]Ordered By: Jose Caro on 03-09-2023 Hematocrit (Bld) [Volume fraction] 51.0 % 40-54 [facility] Laboratory - Chemistry and C hemistry - challengeOrdered By: Jose Caro on 03-09-2023 ALP [Catalytic activity/Vol] 100 U/L 45-117 [facility] ALT [Catalytic activity/Vol] 27 U/L 16-61 [facility] Globulin (S) [Mass/Vol] 3.9 g/dL 2.2-4.2 [facility] Laboratory - Hematology and Cell countsOrdered By: Jose Caro on 03-09-2023 Erythrocyte distribution width (RBC) [Entitic vol] 43.8 fL 35.1-43.9 [facility] Erythrocyte distribution width (RBC) [Ratio] 12.9 % 11.6-14.6 [facility] Immature granulocytes/100 WBC (Bld) 0.600 % 0.0-0.9 [facility] Comment on above: IG% - Immature Granu locytes (promyelocytes, myelocytes and metamyelocytes) > 1% indicates that a LEFT SHIFT is Present. MCH (RBC) [Entitic mass] 29.9 pg 27.0-32.0 [facility] Nucleated RBC/100 WBC (Bld) [Ratio] 0 % 0-5 [facility] MCHC Auto (RBC) [Mass/Vol]Or dered By: Jose Caro on 03-09-2023 MCHC (RBC) [Mass/Vol] 32.4 g/dL 32-36 [facility] No Panel InformationOrdered By: Jose Caro on 03-09-2023 Estimated GFR (MDRD) Amer 109 mL/min >60 [facility] Comment on above: GFR Calc Estimated GFR (MDRD) Non-Af Amer 90 mL/min >60 [facility] Comment on above: Non- GFR Calc Platelets bldOrdered By: Nirmal Caro on 03-09-2023 Platelets (Bld) [#/Vol] 365 10*3/uL 150-450 [facility] Serum or plasma C reactive p rotein measurement (mass/volume)Ordered By: Jose Caro on 03-09-2023 CRP [Mass/Vol] 7.78 mg/L 0.0-3.0 [facility] Comment on above: C-Reactive Protein ( CRP) provides useful information for thediagnosis, therapy and monitoring of inflammatory processesand associated diseases. For the evaluation of Relative Riskfor Cardiovascular Disease, a High Sensitivity CRP (HSCRP)should be ordered. Serum or plasma albumin kendra urement (mass/volume)Ordered By: Jose Caro on 03-09-2023 Albumin [Mass/Vol] 3.6 g/dL 3.2-5.0 [facility] Serum or plasma creatinine m easurement (mass/volume)Ordered By: Jose Caro on 03-09-2023 Creatinine [Mass/Vol] 0.91 mg/dL 0.70-1.30 [facility] Comment on above: The validity of the calculated GFR & GFRAA in patients over 70 years has not been determined. Clinical correlation is essential. Thin prep Papanicolaou smear with manual screeningOrdered By: Jose Caro on 03-09-2023 Thin prep Papanicolaou smear with manual screening 24 U/L 15-37 [facility] Basophil percentageOrdered B y: Ash Long on 03-02-2023 Chloride [Moles/Vol] 108 mmol/L 98-107 [facility] Cholesterol [Mass/Vol] 179 mg/dL <200 [facility] Comment on above: <200 mg/dL Desirable 200-240 mg/dL Borderline >240 mg/dL High Risk Glucose [Mass/Vol] 99 mg/dL 74-106 [facility] Potassium [Moles/Vol] 4.3 mmol/L 3.5-5.1 [facility] Sodium [Moles/Vol] 140 mmol/L 136-145 [facility] Triglyceride [Mass/Vol] 268 mg/dL <199 [facility] Comment on above: The drugs N-Acetylcy steine and Metamizole may falsely depress this assay.Serum Triglycerides Reference Interval Normal <150 mg/dL Borderline high 150 - 199 mg/dL High 200 - 499 mg/dL Very High > or = 500 mg/dL Laboratory - Chemistry and C hemistry - challengeOrdered By: Ash Long on 03-02-2023 CO2 [Moles/Vol] 28.0 mmol/L 21.0-32.0 [facility] Free T4 [Mass/Vol] 1.04 ng/dL 0.76-1.46 [facility] Urea nitrogen/Creatinine [Mass ratio] 15.8 mg/mg 10-20 [facility] No Panel InformationOrdered By: Ash Long on 03-02-2023 Estimated GFR (MDRD) Amer 105 mL/min >60 [facility] Comment on above: GFR Calc Estimated GFR (MDRD) Non-Af Amer 87 mL/min >60 [facility] Comment on above: Non- GFR Calc Free Triiodothyronine (T3) pg/dL 2.5 pg/mL 2.18-3.98 [facility] Prostate Specific Antigen Screen 2.12 ng/mL 0.00-4.00 [facility] Comment on above: This test was perfor med using the TPSA assay method for [employer] chemistry system. Values obtained with differentassay methods cannot be used interchangably.When changing PSA assays in the course of monitoring apatient, additional sequential testing should be carriedout to confirm baseline values. Thyroid Stimulating Hormone (TSH) 2.73 uIU/mL 0.358-3.74 [facility] Serum or plasma calcium kendra urement (mass/volume)Ordered By: Ash Long on 03-02-2023 Calcium [Mass/Vol] 8.8 mg/dL 8.5-10.1 [facility] Serum or plasma cholesterol in HDL measurement (mass/volume)Ordered By: Ash Long on 03-02-2023 Cholesterol in HDL [Mass/Vol] 40 mg/dL >40 [facility] Comment on above: The drugs N-Acetylcy steine and Metamizole may falsely depress this assay. Reference Range HDL <40 mg/dL Low HDL Cholesterol HDL >or= 60 mg/dL High HDL Cholesterol Serum or plasma cholesterol in VLDL measurement (mass/volume)Ordered By: Ash Long on 03-02-2023 Cholesterol in VLDL [Mass/Vol] 54 mg/dL 5-40 [facility] Serum or plasma creatinine m easurement (mass/volume)Ordered By: Ash Long on 03-02-2023 Creatinine [Mass/Vol] 0.95 mg/dL 0.70-1.30 [facility] Comment on above: The validity of the calculated GFR & GFRAA in patients over 70 years has not been determined. Clinical correlation is essential. Serum or plasma low density lipoprotein (LDL) cholesterol measurement (mass/volume)Ordered By: Ash Long on 03-02-2023 Cholesterol in LDL [Mass/Vol] 85 mg/dL 0-130 [facility] Serum or plasma urea nitroge n measurement (mass/volume)Ordered By: Ash Long on 03-02-2023 Urea nitrogen [Mass/Vol] 15 mg/dL 7-18 [facility] Thin prep Papanicolaou smear with manual screeningOrdered By: Ash Long on 03-02-2023 Thin prep Papanicolaou smear with manual screening 4 5-15 [facility] Absolute lymphocyte counton 12-06-2022 Lymphocytes Auto (Unsp spec) [#/Vol] 2.07 10*3/uL 0.83-4.51 [facility] Basophil percentageon 2022 Basophils/100 WBC (Bld) 0.6 % 0-1 [facility] Bilirubin [Mass/Vol] 0.50 mg/dL 0.20-1.00 [facility] Comment on above: For patients on eltr ombopag therapy, use of Dimension [place] TBIL is not recommended. Eosinophils/100 WBC (Bld) 2.0 % 0-5 [facility] Neutrophils (Bld) [#/Vol] 4.3 10*3/uL 2.0-7.7 [facility] Neutrophils/100 WBC (Bld) 60.1 % 47-70 [facility] Protein [Mass/Vol] 7.0 g/dL 6.4-8.2 [facility] WBC (Bld) [#/Vol] 7.1 10*3/uL 4.4-11.0 [facility] Blood erythrocytes count (nu mber/volume)on 12-06-2022 RBC (Bld) [#/Vol] 5.17 10*6/uL 4.6-6.2 [facility] Blood hemoglobin measurement (mass/volume)on 12-06-2022 Hemoglobin (Bld) [Mass/Vol] 15.9 g/dL 13.0-16.5 [facility] Blood lymphocytes/100 leukoc yteson 12-06-2022 Lymphocytes/100 WBC (Bld) 29.2 % 19-41 [facility] Blood monocytes/100 leukocyt eson 12-06-2022 Monocytes/100 WBC (Bld) 7.7 % 0-10 [facility] Blood platelet mean volumeon 12-06-2022 Platelet mean volume (Bld) [Entitic vol] 9.4 fL 6.2-12.0 [facility] Determination of erythrocyte mean corpuscular volume (MCV)on 12-06-2022 MCV (RBC) [Entitic vol] 91.3 fL 80-94 [facility] Direct bilirubinon Bilirubin.direct [Mass/Vol] 0.12 mg/dL 0.00-0.30 [facility] Erythrocyte sedimentation ra sonya 12-06-2022 ESR (Bld) [Velocity] 2 mm/h 0-20 [facility] Hematocrit Auto (Bld) [Volum e fraction]on 12-06-2022 Hematocrit (Bld) [Volume fraction] 47.2 % 40-54 [facility] Laboratory - Chemistry and C hemistry - challengeon 12-06-2022 ALP [Catalytic activity/Vol] 95 U/L 45-117 [facility] ALT [Catalytic activity/Vol] 35 U/L 16-61 [facility] Globulin (S) [Mass/Vol] 3.4 g/dL 2.2-4.2 [facility] Laboratory - Hematology and Cell countson 12-06-2022 Erythrocyte distribution width (RBC) [Entitic vol] 42.4 fL 35.1-43.9 [facility] Erythrocyte distribution width (RBC) [Ratio] 12.6 % 11.6-14.6 [facility] Immature granulocytes/100 WBC (Bld) 0.400 % 0.0-0.9 [facility] Comment on above: IG% - Immature Granu locytes (promyelocytes, myelocytes and metamyelocytes) > 1% indicates that a LEFT SHIFT is Present. MCH (RBC) [Entitic mass] 30.8 pg 27.0-32.0 [facility] Nucleated RBC/100 WBC (Bld) [Ratio] 0 % 0-5 [facility] MCHC Auto (RBC) [Mass/Vol]on 12-06-2022 MCHC (RBC) [Mass/Vol] 33.7 g/dL 32-36 [facility] No Panel Informationon 12-06 Estimated GFR (MDRD) Amer 100 mL/min >60 [facility] Comment on above: GFR Calc Estimated GFR (MDRD) Non-Af Amer 83 mL/min >60 [facility] Comment on above: Non- GFR Calc Platelets bldon 12-06-2022 Platelets (Bld) [#/Vol] 336 10*3/uL 150-450 [facility] Serum or plasma C reactive p rotein measurement (mass/volume)on 12-06-2022 CRP [Mass/Vol] mg/L 0.0-3.0 [facility] Comment on above: C-Reactive Protein ( CRP) provides useful information for thediagnosis, therapy and monitoring of inflammatory processesand associated diseases. For the evaluation of Relative Riskfor Cardiovascular Disease, a High Sensitivity CRP (HSCRP)should be ordered. Serum or plasma albumin kendra urement (mass/volume)on 12-06-2022 Albumin [Mass/Vol] 3.6 g/dL 3.2-5.0 [facility] Serum or plasma creatinine m easurement (mass/volume)on 12-06-2022 Creatinine [Mass/Vol] 0.98 mg/dL 0.70-1.30 [facility] Comment on above: The validity of the calculated GFR & GFRAA in patients over 70 years has not been determined. Clinical correlation is essential. Thin prep Papanicolaou smear with manual screeningon 12-06-2022 Thin prep Papanicolaou smear with manual screening 27 U/L 15-37 [facility] Comment on above: Slight Hemolysis, Re sult may be falsely increased. Albumin Elph [Mass/Vol]Order ed By: Dr. Caruso on 10-29-2022 Albumin [Mass/Vol] 3.9 g/dL 2.9-4.4 [facility] Interpretation of serum or p lasma protein pattern by immunofixation (narrative resultOrdered By: Dr. Caruso on 10-29-2022 Protein Fractions Immunofixation Omer [Interp] See comment [facility] Comment on above: NOT OBSERVED No Panel InformationOrdered By: Dr. Caruso on 10-29-2022 Addendum Document Comment . [facility] Comment on above: Protein electrophore sis scan will follow via computer,mail, or seamer panty hose delivery.Performed at: [facility] [id number] Director: Klever Ortiz PhD, Phone: [phone] Serum [id number] measu rement by electrophoresisOrdered By: Dr. Caruso on 10-29-2022 Alpha 1 globulin Elph [Mass/Vol] 0.2 g/dL 0.0-0.4 [facility] Alpha 1 globulin Elph [Mass/Vol] 0.6 g/dL 0.4-1.0 [facility] Serum globulin measurement ( mass/volume)Ordered By: Dr. Caruso on 10-29-2022 Globulin (S) [Mass/Vol] 2.9 g/dL 2.2-3.9 [facility] Serum or plasma IgA measurem ent (mass/volume)Ordered By: Dr. Caruso on 10-29-2022 IgA [Mass/Vol] 185 mg/dL 90-386 [facility] Serum or plasma IgG measurem ent (mass/volume)Ordered By: Dr. Caruso on 10-29-2022 IgG [Mass/Vol] 1199 mg/dL 603-1613 [facility] Serum or plasma IgM measurem ent (mass/volume)Ordered By: Dr. Caruso on 10-29-2022 IgM [Mass/Vol] 106 mg/dL 20-172 [facility] Serum or plasma beta globuli n measurement by electrophoresis (mass/volume)Ordered By: Dr. Caruso on 10-29-2022 Beta globulin Elph [Mass/Vol] 0.9 g/dL 0.7-1.3 [facility] Serum or plasma gamma globul in measurement by electrophoresis (mass/volume)Ordered By: Dr. Caruso on 10-29-2022 Gamma globulin Elph [Mass/Vol] 1.2 g/dL 0.4-1.8 [facility] Serum or plasma immunoelectr ophoresis interpretation (nominal result)Ordered By: Dr. Caruso on 10-29-2022 Interpretation IEP [Interp] Comment . [facility] Comment on above: No monoclonality det ected. Thin prep Papanicolaou smear with manual screeningOrdered By: Dr. Caruso on 10-29-2022 Thin prep Papanicolaou smear with manual screening 1.4 0.7-1.7 [facility] Total protein bloodOrdered B y: Dr. Caruso on 10-29-2022 Protein [Mass/Vol] 6.8 g/dL 6.0-8.5 [facility] Absolute lymphocyte countOrd ered By: Dr. Caro on 09-07-2022 Lymphocytes Auto (Unsp spec) [#/Vol] 2.53 10*3/uL 0.83-4.51 [facility] Basophil percentageOrdered B y: Dr. Caro on 09-07-2022 Basophils/100 WBC (Bld) 0.7 % 0-1 [facility] Bilirubin [Mass/Vol] 0.40 mg/dL 0.20-1.00 [facility] Comment on above: For patients on eltr ombopag therapy, use of Dimension [place] TBIL is not recommended. Eosinophils/100 WBC (Bld) 2.0 % 0-5 [facility] Neutrophils (Bld) [#/Vol] 4.1 10*3/uL 2.0-7.7 [facility] Neutrophils/100 WBC (Bld) 53.8 % 47-70 [facility] Protein [Mass/Vol] 7.2 g/dL 6.4-8.2 [facility] WBC (Bld) [#/Vol] 7.5 10*3/uL 4.4-11.0 [facility] Blood erythrocytes count (nu mber/volume)Ordered By: Dr. Caro on 09-07-2022 RBC (Bld) [#/Vol] 5.35 10*6/uL 4.6-6.2 [facility] Blood hemoglobin measurement (mass/volume)Ordered By: Dr. Caro on 09-07-2022 Hemoglobin (Bld) [Mass/Vol] 15.9 g/dL 13.0-16.5 [facility] Blood lymphocytes/100 leukoc ytesOrdered By: Dr. Caro on 09-07-2022 Lymphocytes/100 WBC (Bld) 33.6 % 19-41 [facility] Blood monocytes/100 leukocyt esOrdered By: Dr. Caro on 09-07-2022 Monocytes/100 WBC (Bld) 9.2 % 0-10 [facility] Blood platelet mean volumeOr dered By: Dr. Caro on 09-07-2022 Platelet mean volume (Bld) [Entitic vol] 9.1 fL 6.2-12.0 [facility] Determination of erythrocyte mean corpuscular volume (MCV)Ordered By: Dr. Caro on 09-07-2022 MCV (RBC) [Entitic vol] 90.8 fL 80-94 [facility] Direct bilirubinOrdered By: Dr. Caro on 09-07-2022 Bilirubin.direct [Mass/Vol] 0.13 mg/dL 0.00-0.30 [facility] Erythrocyte sedimentation ra teOrdered By: Dr. Caro on 09-07-2022 ESR (Bld) [Velocity] 6 mm/h 0-20 [facility] Hematocrit Auto (Bld) [Volum e fraction]Ordered By: Dr. Caro on 09-07-2022 Hematocrit (Bld) [Volume fraction] 48.6 % 40-54 [facility] Laboratory - Chemistry and C hemistry - challengeOrdered By: Dr. Caro on 09-07-2022 ALP [Catalytic activity/Vol] 92 U/L 45-117 [facility] ALT [Catalytic activity/Vol] 32 U/L 16-61 [facility] Globulin (S) [Mass/Vol] 3.6 g/dL 2.2-4.2 [facility] Laboratory - Hematology and Cell countsOrdered By: Dr. Caro on 09-07-2022 Erythrocyte distribution width (RBC) [Entitic vol] 44.4 fL 35.1-43.9 [facility] Erythrocyte distribution width (RBC) [Ratio] 13.2 % 11.6-14.6 [facility] Immature granulocytes/100 WBC (Bld) 0.700 % 0.0-0.9 [facility] Comment on above: IG% - Immature Granu locytes (promyelocytes, myelocytes and metamyelocytes) > 1% indicates that a LEFT SHIFT is Present. MCH (RBC) [Entitic mass] 29.7 pg 27.0-32.0 [facility] Nucleated RBC/100 WBC (Bld) [Ratio] 0 % 0-5 [facility] MCHC Auto (RBC) [Mass/Vol]Or dered By: Dr. Caro on 09-07-2022 MCHC (RBC) [Mass/Vol] 32.7 g/dL 32-36 [facility] No Panel InformationOrdered By: Dr. Caro on 09-07-2022 Estimated GFR (MDRD) Amer 111 mL/min >60 [facility] Comment on above: GFR Calc Estimated GFR (MDRD) Non-Af Amer 92 mL/min >60 [facility] Comment on above: Non- GFR Calc Platelets bldOrdered By: Dr. Caro on 09-07-2022 Platelets (Bld) [#/Vol] 351 10*3/uL 150-450 [facility] Serum or plasma C reactive p rotein measurement (mass/volume)Ordered By: Dr. Caro on 09-07-2022 CRP [Mass/Vol] mg/L 0.0-3.0 [facility] Comment on above: C-Reactive Protein ( CRP) provides useful information for thediagnosis, therapy and monitoring of inflammatory processesand associated diseases. For the evaluation of Relative Riskfor Cardiovascular Disease, a High Sensitivity CRP (HSCRP)should be ordered. Serum or plasma albumin kendra urement (mass/volume)Ordered By: Dr. Caro on 09-07-2022 Albumin [Mass/Vol] 3.6 g/dL 3.2-5.0 [facility] Serum or plasma creatinine m easurement (mass/volume)Ordered By: Dr. Caro on 09-07-2022 Creatinine [Mass/Vol] 0.90 mg/dL 0.70-1.30 [facility] Comment on above: The validity of the calculated GFR & GFRAA in patients over 70 years has not been determined. Clinical correlation is essential. Thin prep Papanicolaou smear with manual screeningOrdered By: Dr. Caro on 09-07-2022 Thin prep Papanicolaou smear with manual screening 22 U/L 15-37 [facility] Laboratory - Microbiology an d Antimicrobial susceptibilityon 08-18-2022 SARS-CoV-2 (COVID-19) RNA ANGÉLICA+probe Ql (Unsp spec) Detected [facility] No Panel Informationon 08-18 Influenza Types A,B Rapid (Clinic) Not detected [facility] Albumin Elph [Mass/Vol]Order ed By: Dr. Caruso on 07-08-2022 Albumin [Mass/Vol] 3.8 g/dL 2.9-4.4 [facility] Basophil percentageOrdered B y: Dr. Caruso on 07-08-2022 Basophil percentage Comment . [facility] Comment on above: No monoclonality det ected.Performed at: [address] [id number] Director: Klever Ortiz PhD, Phone: [phone] Interpretation of serum or p lasma protein pattern by immunofixation (narrative resultOrdered By: Dr. Caruso on 07-08-2022 Protein Fractions Immunofixation Omer [Interp] See comment [facility] Comment on above: Result: Not Observed No Panel InformationOrdered By: Dr. Caruso on 07-08-2022 Addendum Document Comment . [facility] Comment on above: Protein electrophore sis scan will follow via computer,mail, or seamer panty hose delivery. Serum [id number] measu rement by electrophoresisOrdered By: Dr. Caruso on 07-08-2022 Alpha 1 globulin Elph [Mass/Vol] 0.2 g/dL 0.0-0.4 [facility] Alpha 1 globulin Elph [Mass/Vol] 0.6 g/dL 0.4-1.0 [facility] Serum globulin measurement ( mass/volume)Ordered By: Dr. Caruso on 07-08-2022 Globulin (S) [Mass/Vol] 2.8 g/dL 2.2-3.9 [facility] Serum or plasma IgA measurem ent (mass/volume)Ordered By: Dr. Caruso on 07-08-2022 IgA [Mass/Vol] 187 mg/dL 90-386 [facility] Serum or plasma IgG measurem ent (mass/volume)Ordered By: Dr. Caruso on 07-08-2022 IgG [Mass/Vol] 1132 mg/dL 603-1613 [facility] Serum or plasma IgM measurem ent (mass/volume)Ordered By: Dr. Caruso on 07-08-2022 IgM [Mass/Vol] 97 mg/dL 20-172 [facility] Serum or plasma beta globuli n measurement by electrophoresis (mass/volume)Ordered By: Dr. Caruso on 07-08-2022 Beta globulin Elph [Mass/Vol] 0.8 g/dL 0.7-1.3 [facility] Serum or plasma gamma globul in measurement by electrophoresis (mass/volume)Ordered By: Dr. Caruso on 07-08-2022 Gamma globulin Elph [Mass/Vol] 1.2 g/dL 0.4-1.8 [facility] Serum or plasma immunoelectr ophoresis interpretation (nominal result)Ordered By: Dr. Caruso on 07-08-2022 Interpretation IEP [Interp] Comment: . [facility] Comment on above: Presence of monoclon al protein is unclear at this time. Suggestrepeat in 3 to 6 months if clinically indicated. Thin prep Papanicolaou smear with manual screeningOrdered By: Dr. Caruso on 07-08-2022 Thin prep Papanicolaou smear with manual screening 1.4 0.7-1.7 [facility] Total protein bloodOrdered B y: Dr. Caruso on 07-08-2022 Protein [Mass/Vol] 6.6 g/dL 6.0-8.5 [facility] Basophil percentageOrdered B y: Dr. Caruso on 06-30-2022 Chloride [Moles/Vol] 107 mmol/L 98-107 [facility] Glucose [Mass/Vol] 101 mg/dL 74-106 [facility] Comment on above: Fasting Glucose resu lt from 100 to 125 mg/dL suggests IMPAIRED HOMEOSTASIS per A.D.A. criteria. Potassium [Moles/Vol] 4.1 mmol/L 3.5-5.1 [facility] Sodium [Moles/Vol] 139 mmol/L 136-145 [facility] Iron measurement (mass/mass) Ordered By: Dr. Caruso on 06-30-2022 Iron (Unsp spec) [Mass/Mass] 129 ug/dL 65-175 [facility] Laboratory - Chemistry and C hemistry - challengeOrdered By: Dr. Caruso on 06-30-2022 CO2 [Moles/Vol] 30.0 mmol/L 21.0-32.0 [facility] Cobalamin (Vitamin B12) [Mass/Vol] 342 pg/mL 211-911 [facility] Free T4 [Mass/Vol] 1.24 ng/dL 0.76-1.46 [facility] Urea nitrogen/Creatinine [Mass ratio] 13.9 mg/mg 10-20 [facility] No Panel InformationOrdered By: Dr. Caruso on 06-30-2022 Estimated GFR (MDRD) Amer 106 mL/min >60 [facility] Comment on above: GFR Calc Estimated GFR (MDRD) Non-Af Amer 88 mL/min >60 [facility] Comment on above: Non- GFR Calc Free Lambda Light Chains, Quant 15.2 mg/L 5.7-26.3 [facility] Thyroid Stimulating Hormone (TSH) 2.59 uIU/mL 0.358-3.74 [facility] Whole Blood Vitamin B1 Level 217.6 nmol/L 66.5-200.0 [facility] Comment on above: Performed at: [employer] [address] [id number] Director: Klever Ortiz PhD, Phone: [phone] at: [facility] [id number] Director: Myrna Disla MD, Phone: [phone] Serum immunoglobulin kappa l ight chains/immunoglobulin lambda light chains mass ratioOrdered By: Dr. Caruso on 06-30-2022 Immunoglobulin light chains.kappa/Immunoglob ulin light chains.lambda (S) [Mass ratio] 1.29 0.26-1.65 [facility] Serum or plasma calcium kendra urement (mass/volume)Ordered By: Dr. Caruso on 06-30-2022 Calcium [Mass/Vol] 8.6 mg/dL 8.5-10.1 [facility] Serum or plasma creatinine m easurement (mass/volume)Ordered By: Dr. Caruso on 06-30-2022 Creatinine [Mass/Vol] 0.94 mg/dL 0.70-1.30 [facility] Comment on above: The validity of the calculated GFR & GFRAA in patients over 70 years has not been determined. Clinical correlation is essential. Serum or plasma ferritin lito surement (mass/volume)Ordered By: Dr. Caruso on 06-30-2022 Ferritin [Mass/Vol] 61 ng/mL 26-388 [facility] Serum or plasma folate measu rement (mass/volume)Ordered By: Dr. Carsuo on 06-30-2022 Folate [Mass/Vol] 85.20 ng/mL 3.1-55.4 [facility] Serum or plasma immunoglobul in kappa light chains measurement (mass/volume)Ordered By: Dr. Caruso on 06-30-2022 Immunoglobulin light chains.kappa [Mass/Vol] 19.6 mg/L 3.3-19.4 [facility] Serum or plasma urea nitroge n measurement (mass/volume)Ordered By: Dr. Caruso on 06-30-2022 Urea nitrogen [Mass/Vol] 13 mg/dL 7-18 [facility] Thin prep Papanicolaou smear with manual screeningOrdered By: Dr. Caruso on 06-30-2022 Thin prep Papanicolaou smear with manual screening 2 5-15 [facility] Absolute lymphocyte counton 06-09-2022 Lymphocytes Auto (Unsp spec) [#/Vol] 2.39 10*3/uL 0.83-4.51 [facility] Basophil percentageon 2021 Basophils/100 WBC (Bld) 0.6 % 0-1 [facility] Bilirubin [Mass/Vol] 0.80 mg/dL 0.20-1.00 [facility] Comment on above: For patients on eltr ombopag therapy, use of Dimension [place] TBIL is not recommended. Eosinophils/100 WBC (Bld) 2.2 % 0-5 [facility] Neutrophils (Bld) [#/Vol] 3.1 10*3/uL 2.0-7.7 [facility] Neutrophils/100 WBC (Bld) 48.6 % 47-70 [facility] Protein [Mass/Vol] 7.2 g/dL 6.4-8.2 [facility] WBC (Bld) [#/Vol] 6.4 10*3/uL 4.4-11.0 [facility] Blood erythrocytes count (nu mber/volume)on 06-09-2022 RBC (Bld) [#/Vol] 5.32 10*6/uL 4.6-6.2 [facility] Blood hemoglobin measurement (mass/volume)on 06-09-2022 Hemoglobin (Bld) [Mass/Vol] 15.8 g/dL 13.0-16.5 [facility] Blood lymphocytes/100 leukoc yteson 06-09-2022 Lymphocytes/100 WBC (Bld) 37.5 % 19-41 [facility] Blood monocytes/100 leukocyt eson 06-09-2022 Monocytes/100 WBC (Bld) 10.8 % 0-10 [facility] Blood platelet mean volumeon 06-09-2022 Platelet mean volume (Bld) [Entitic vol] 9.5 fL 6.2-12.0 [facility] Determination of erythrocyte mean corpuscular volume (MCV)on 06-09-2022 MCV (RBC) [Entitic vol] 90.2 fL 80-94 [facility] Direct bilirubinon Bilirubin.direct [Mass/Vol] 0.14 mg/dL 0.00-0.30 [facility] Erythrocyte sedimentation ra sonya 06-09-2022 ESR (Bld) [Velocity] 4 mm/h 0-20 [facility] Hematocrit Auto (Bld) [Volum e fraction]on 06-09-2022 Hematocrit (Bld) [Volume fraction] 48.0 % 40-54 [facility] Laboratory - Chemistry and C hemistry - challengeon 06-09-2022 ALP [Catalytic activity/Vol] 89 U/L 45-117 [facility] ALT [Catalytic activity/Vol] 29 U/L 16-61 [facility] Globulin (S) [Mass/Vol] 3.7 g/dL 2.2-4.2 [facility] Laboratory - Hematology and Cell countson 06-09-2022 Erythrocyte distribution width (RBC) [Entitic vol] 43.0 fL 35.1-43.9 [facility] Erythrocyte distribution width (RBC) [Ratio] 13.1 % 11.6-14.6 [facility] Immature granulocytes/100 WBC (Bld) 0.300 % 0.0-0.9 [facility] Comment on above: IG% - Immature Granu locytes (promyelocytes, myelocytes and metamyelocytes) > 1% indicates that a LEFT SHIFT is Present. MCH (RBC) [Entitic mass] 29.7 pg 27.0-32.0 [facility] Nucleated RBC/100 WBC (Bld) [Ratio] 0 % 0-5 [facility] MCHC Auto (RBC) [Mass/Vol]on 06-09-2022 MCHC (RBC) [Mass/Vol] 32.9 g/dL 32-36 [facility] No Panel Informationon 06-09 Estimated GFR (MDRD) Amer 122 mL/min >60 [facility] Comment on above: GFR Calc Estimated GFR (MDRD) Non-Af Amer 101 mL/min >60 [facility] Comment on above: Non- GFR Calc Platelets bldon 06-09-2022 Platelets (Bld) [#/Vol] 334 10*3/uL 150-450 [facility] Serum or plasma C reactive p rotein measurement (mass/volume)on 06-09-2022 CRP [Mass/Vol] mg/L 0.0-3.0 [facility] Comment on above: C-Reactive Protein ( CRP) provides useful information for thediagnosis, therapy and monitoring of inflammatory processesand associated diseases. For the evaluation of Relative Riskfor Cardiovascular Disease, a High Sensitivity CRP (HSCRP)should be ordered. Serum or plasma albumin kendra urement (mass/volume)on 06-09-2022 Albumin [Mass/Vol] 3.5 g/dL 3.2-5.0 [facility] Serum or plasma creatinine m easurement (mass/volume)on 06-09-2022 Creatinine [Mass/Vol] 0.83 mg/dL 0.70-1.30 [facility] Comment on above: The validity of the calculated GFR & GFRAA in patients over 70 years has not been determined. Clinical correlation is essential. Thin prep Papanicolaou smear with manual screeningon 06-09-2022 Thin prep Papanicolaou smear with manual screening 22 U/L 15-37 [facility] Absolute lymphocyte counton 03-09-2022 Lymphocytes Auto (Unsp spec) [#/Vol] 2.05 10*3/uL 0.83-4.51 [facility] Work Phone: Basophil percentageon 2021 Basophils/100 WBC (Bld) 0.5 % 0-1 [facility] Work Phone: Bilirubin [Mass/Vol] 0.80 mg/dL 0.20-1.00 [facility] Work Phone: Comment on above: For patients on eltr ombopag therapy, use of Dimension [place] TBIL is not recommended. Eosinophils/100 WBC (Bld) 2.4 % 0-5 [facility] Work Phone: Neutrophils (Bld) [#/Vol] 3.4 10*3/uL 2.0-7.7 [facility] Work Phone: Neutrophils/100 WBC (Bld) 54.2 % 47-70 [facility] Work Phone: Protein [Mass/Vol] 7.3 g/dL 6.4-8.2 [facility] Work Phone: WBC (Bld) [#/Vol] 6.3 10*3/uL 4.4-11.0 [facility] Work Phone: Blood erythrocytes count (nu mber/volume)on 03-09-2022 RBC (Bld) [#/Vol] 5.35 10*6/uL 4.6-6.2 [facility] Work Phone: Blood hemoglobin measurement (mass/volume)on 03-09-2022 Hemoglobin (Bld) [Mass/Vol] 15.7 g/dL 13.0-16.5 [facility] Work Phone: Blood lymphocytes/100 leukoc yteson 03-09-2022 Lymphocytes/100 WBC (Bld) 32.7 % 19-41 [facility] Work Phone: [phone] Blood monocytes/100 leukocyt eson 03-09-2022 Monocytes/100 WBC (Bld) 9.9 % 0-10 [facility] Work Phone: Blood platelet mean volumeon 03-09-2022 Platelet mean volume (Bld) [Entitic vol] 9.7 fL 6.2-12.0 [facility] Work Phone: Determination of erythrocyte mean corpuscular volume (MCV)on 03-09-2022 MCV (RBC) [Entitic vol] 89.2 fL 80-94 [facility] Work Phone: Direct bilirubinon 2 Bilirubin.direct [Mass/Vol] 0.20 mg/dL 0.00-0.30 [facility] Work Phone: Erythrocyte sedimentation ra sonya 03-09-2022 ESR (Bld) [Velocity] 3 mm/h 0-20 [facility] Work Phone: Hematocrit Auto (Bld) [Volum e fraction]on 03-09-2022 Hematocrit (Bld) [Volume fraction] 47.7 % 40-54 [facility] Work Phone: Laboratory - Chemistry and C hemistry - challengeon 03-09-2022 ALP [Catalytic activity/Vol] 86 U/L 45-117 [facility] Work Phone: ALT [Catalytic activity/Vol] 24 U/L 16-61 [facility] Work Phone: Globulin (S) [Mass/Vol] 3.6 g/dL 2.2-4.2 [facility] Work Phone: Laboratory - Hematology and Cell countson 03-09-2022 Erythrocyte distribution width (RBC) [Entitic vol] 44.3 fL 35.1-43.9 [facility] Work Phone: Erythrocyte distribution width (RBC) [Ratio] 13.6 % 11.6-14.6 [facility] Work Phone: Immature granulocytes/100 WBC (Bld) 0.300 % 0.0-0.9 [facility] Work Phone: Comment on above: IG% - Immature Granu locytes (promyelocytes, myelocytes and metamyelocytes) > 1% indicates that a LEFT SHIFT is Present. MCH (RBC) [Entitic mass] 29.3 pg 27.0-32.0 [facility] Work Phone: Nucleated RBC/100 WBC (Bld) [Ratio] 0 % 0-5 [facility] Work Phone: MCHC Auto (RBC) [Mass/Vol]on 03-09-2022 MCHC (RBC) [Mass/Vol] 32.9 g/dL 32-36 [facility] Work Phone: No Panel Informationon 03-09 Estimated GFR (MDRD) Amer 108 mL/min >60 [facility] Work Phone: Comment on above: GFR Calc Estimated GFR (MDRD) Non-Af Amer 89 mL/min >60 [facility] Work Phone: Comment on above: Non- GFR Calc Platelets bldon 03-09-2022 Platelets (Bld) [#/Vol] 346 10*3/uL 150-450 [facility] Work Phone: Serum or plasma C reactive p rotein measurement (mass/volume)on 03-09-2022 CRP [Mass/Vol] 5.23 mg/L 0.0-3.0 [facility] Work Phone: Comment on above: C-Reactive Protein ( CRP) provides useful information for thediagnosis, therapy and monitoring of inflammatory processesand associated diseases. For the evaluation of Relative Riskfor Cardiovascular Disease, a High Sensitivity CRP (HSCRP)should be ordered. Serum or plasma albumin kendra urement (mass/volume)on 03-09-2022 Albumin [Mass/Vol] 3.7 g/dL 3.2-5.0 [facility] Work Phone: Serum or plasma creatinine m easurement (mass/volume)on 03-09-2022 Creatinine [Mass/Vol] 0.93 mg/dL 0.70-1.30 [facility] Work Phone: Comment on above: The validity of the calculated GFR & GFRAA in patients over 70 years has not been determined. Clinical correlation is essential. Thin prep Papanicolaou smear with manual screeningon 03-09-2022 Thin prep Papanicolaou smear with manual screening 20 U/L 15-37 [facility] Work Phone: Absolute lymphocyte counton 03-02-2022 Lymphocytes Auto (Unsp spec) [#/Vol] 2.14 10*3/uL 0.83-4.51 [facility] Work Phone: Absolute reticulocyte counto n 03-02-2022 Reticulocytes (Bld) [#/Vol] 0.00 10*3/uL 0-5 [facility] Work Phone: Basophil percentageon 2021 Basophil percentage 3.2 mg/dL 2.5-4.9 [facility] Work Phone: [phone] Bilirubin [Mass/Vol] 0.70 mg/dL 0.20-1.00 [facility] Work Phone: [phone] Comment on above: For patients on eltr ombopag therapy, use of Dimension [place] TBIL is not recommended. Chloride [Moles/Vol] 106 mmol/L 98-107 [facility] Work Phone: Cholesterol [Mass/Vol] 184 mg/dL <200 [facility] Work Phone: Comment on above: <200 mg/dL Desirable 200-240 mg/dL Borderline >240 mg/dL High Risk Glucose [Mass/Vol] 104 mg/dL 74-106 [facility] Work Phone: Comment on above: Fasting Glucose resu lt from 100 to 125 mg/dL suggests IMPAIRED HOMEOSTASIS per A.D.A. criteria. Neutrophils (Bld) [#/Vol] 2.5 10*3/uL 2.0-7.7 [facility] Work Phone: [phone] Potassium [Moles/Vol] 4.1 mmol/L 3.5-5.1 [facility] Work Phone: [phone] Protein [Mass/Vol] 6.9 g/dL 6.4-8.2 [facility] Work Phone: [phone] Sodium [Moles/Vol] 140 mmol/L 136-145 [facility] Work Phone: Triglyceride [Mass/Vol] 89 mg/dL <199 [facility] Work Phone: Comment on above: The drugs N-Acetylcy steine and Metamizole may falsely depress this assay.Serum Triglycerides Reference Interval Normal <150 mg/dL Borderline high 150 - 199 mg/dL High 200 - 499 mg/dL Very High > or = 500 mg/dL WBC (Bld) [#/Vol] 5.4 10*3/uL 4.4-11.0 [facility] Work Phone: Bilirubin Test strip Ql (U)o n 03-02-2022 Bilirubin Ql (U) Negative Negative [facility] Work Phone: Blood erythrocytes count (nu mber/volume)on 03-02-2022 RBC (Bld) [#/Vol] 5.29 10*6/uL 4.6-6.2 [facility] Work Phone: Blood hemoglobin measurement (mass/volume)on 03-02-2022 Hemoglobin (Bld) [Mass/Vol] 15.6 g/dL 13.0-16.5 [facility] Work Phone: Blood platelet mean volumeon 03-02-2022 Platelet mean volume (Bld) [Entitic vol] 9.1 fL 6.2-12.0 [facility] Work Phone: Determination of erythrocyte mean corpuscular volume (MCV)on 03-02-2022 MCV (RBC) [Entitic vol] 89.4 fL 80-94 [facility] Work Phone: Direct bilirubinon 2 Bilirubin.direct [Mass/Vol] 0.21 mg/dL 0.00-0.30 [facility] Work Phone: Hematocrit Auto (Bld) [Volum e fraction]on 03-02-2022 Hematocrit (Bld) [Volume fraction] 47.3 % 40-54 [facility] Work Phone: Ketones Test strip Ql (U)on 03-02-2022 Ketones Ql (U) Negative Negative [facility] Work Phone: Laboratory - Chemistry and C hemistry - challengeon 03-02-2022 ALP [Catalytic activity/Vol] 84 U/L 45-117 [facility] Work Phone: ALT [Catalytic activity/Vol] 23 U/L 16-61 [facility] Work Phone: Cholesterol.total/Richa sterol in HDL [Mass ratio] 3.70 {ratio} [facility] Work Phone: CO2 [Moles/Vol] 29.0 mmol/L 21.0-32.0 [facility] Work Phone: Globulin (S) [Mass/Vol] 3.2 g/dL 2.2-4.2 [facility] Work Phone: Urea nitrogen/Creatinine [Mass ratio] 19.2 mg/mg 10-20 [facility] Work Phone: Laboratory - Hematology and Cell countson 03-02-2022 Erythrocyte distribution width (RBC) [Entitic vol] 43.3 fL 35.1-43.9 [facility] Work Phone: Erythrocyte distribution width (RBC) [Ratio] 13.3 % 11.6-14.6 [facility] Work Phone: MCH (RBC) [Entitic mass] 29.5 pg 27.0-32.0 [facility] Work Phone: Nucleated RBC/100 WBC (Bld) [Ratio] 0 % 0-5 [facility] Work Phone: MCHC Auto (RBC) [Mass/Vol]on 03-02-2022 MCHC (RBC) [Mass/Vol] 33.0 g/dL 32-36 [facility] Work Phone: Nitrite Test strip Ql (U)on 03-02-2022 Nitrite Ql (U) Negative Negative [facility] Work Phone: No Panel Informationon 03-02 Estimated GFR (MDRD) Amer 122 mL/min >60 [facility] Work Phone: Comment on above: GFR Calc Estimated GFR (MDRD) Non-Af Amer 101 mL/min >60 [facility] Work Phone: Comment on above: Non- GFR Calc Prostate Specific Antigen Screen 1.79 ng/mL 0.00-4.00 [facility] Work Phone: Comment on above: This test was perfor med using the TPSA assay method for [employer] chemistry system. Values obtained with differentassay methods cannot be used interchangably.When changing PSA assays in the course of monitoring apatient, additional sequential testing should be carriedout to confirm baseline values. Thyroid Stimulating Hormone (TSH) 3.15 uIU/mL 0.358-3.74 [facility] Work Phone: Vitamin D 25-Hydroxy 34.1 ng/mL [facility] Work Phone: Comment on above: Vitamin D 25(OH) Sta tus Range Deficiency <20 ng/mL (50nmol/L) Insufficiency 20 - 30 ng/mL (50 - 75 nmol/L) Sufficiency 30 - 100 ng/mL (75 - 250 nmol/L) Toxicity >100 ng/mL (>250 nmol/L) Platelets bldon 03-02-2022 Platelets (Bld) [#/Vol] 339 10*3/uL 150-450 [facility] Work Phone: Protein Test strip Ql (U)on 03-02-2022 Protein Ql (U) Negative Negative [facility] Work Phone: Segmented neutrophils/100 WB C Auto (Bld)on 03-02-2022 Segmented neutrophils/100 WBC (Bld) 46.7 % 47-70 [facility] Work Phone: Serum or plasma albumin kendra urement (mass/volume)on 03-02-2022 Albumin [Mass/Vol] 3.7 g/dL 3.2-5.0 [facility] Work Phone: Serum or plasma albumin/glob ulin mass ratioon 03-02-2022 Albumin/Globulin [Mass ratio] 1.2 {ratio} 0.9-2.4 [facility] Work Phone: Serum or plasma calcium kendra urement (mass/volume)on 03-02-2022 Calcium [Mass/Vol] 8.6 mg/dL 8.5-10.1 [facility] Work Phone: Serum or plasma cholesterol in HDL measurement (mass/volume)on 03-02-2022 Cholesterol in HDL [Mass/Vol] 50 mg/dL >40 [facility] Work Phone: Comment on above: The drugs N-Acetylcy steine and Metamizole may falsely depress this assay. Reference Range HDL <40 mg/dL Low HDL Cholesterol HDL >or= 60 mg/dL High HDL Cholesterol Serum or plasma cholesterol in VLDL measurement (mass/volume)on 03-02-2022 Cholesterol in VLDL [Mass/Vol] 18 mg/dL 5-40 [facility] Work Phone: Serum or plasma creatinine m easurement (mass/volume)on 03-02-2022 Creatinine [Mass/Vol] 0.83 mg/dL 0.70-1.30 [facility] Work Phone: Comment on above: The validity of the calculated GFR & GFRAA in patients over 70 years has not been determined. Clinical correlation is essential. Serum or plasma low density lipoprotein (LDL) cholesterol measurement (mass/volume)on 03-02-2022 Cholesterol in LDL [Mass/Vol] 116 mg/dL 0-130 [facility] Work Phone: Serum or plasma urea nitroge n measurement (mass/volume)on 03-02-2022 Urea nitrogen [Mass/Vol] 16 mg/dL 7-18 [facility] Work Phone: Serum or plasma uric acid me asurement (mass/volume)on 03-02-2022 Urate [Mass/Vol] 4.9 mg/dL 3.5-7.2 [facility] Work Phone: Comment on above: The drugs N-Acetylcy steine and Metamizole may falsely depress this assay. Thin prep Papanicolaou smear with manual screeningon 03-02-2022 Thin prep Papanicolaou smear with manual screening 18 U/L 15-37 [facility] Work Phone: Thin prep Papanicolaou smear with manual screening 5 5-15 [facility] Work Phone: Thin prep Papanicolaou smear with manual screening 176 U/L 87-241 [facility] Work Phone: Urine blood detectionon - RBC Ql (U) Negative Negative [facility] Work Phone: Urine clarityon 03-02-2022 Clarity (U) Clear Clear [facility] Work Phone: Urine color determinationon 03-02-2022 Color (U) Yellow Yellow [facility] Work Phone: Urine glucose detectionon Glucose Ql (U) Normal mg/dl Normal [facility] Work Phone: Urine leukocyte esterase det ection by dipstickon 03-02-2022 Leukocyte esterase Test strip Ql (U) 25 /ul Negative [facility] Work Phone: Urine pHon 03-02-2022 pH (U) 6.0 [pH] 5.0 - 8.0 [facility] Work Phone: Urine specific gravity measu rementon 03-02-2022 Specific gravity (U) [Rel density] 1.020 1.002-1.03 0 [facility] Work Phone: Urobilinogen Auto test strip Ql (U)on 03-02-2022 Urobilinogen Ql (U) Normal mg/dl Normal [facility] Work Phone: Absolute lymphocyte counton 12-04-2021 Lymphocytes Auto (Unsp spec) [#/Vol] 2.38 10*3/uL 0.83-4.51 [facility] Work Phone: Basophil percentageon 2021 Basophils/100 WBC (Bld) 0.8 % 0-1 [facility] Work Phone: Bilirubin [Mass/Vol] 0.50 mg/dL 0.20-1.00 [facility] Work Phone: Comment on above: For patients on eltr ombopag therapy, use of Dimension [place] TBIL is not recommended. Eosinophils/100 WBC (Bld) 2.1 % 0-5 [facility] Work Phone: Neutrophils (Bld) [#/Vol] 4.1 10*3/uL 2.0-7.7 [facility] Work Phone: Neutrophils/100 WBC (Bld) 55.4 % 47-70 [facility] Work Phone: Protein [Mass/Vol] 7.3 g/dL 6.4-8.2 [facility] Work Phone: WBC (Bld) [#/Vol] 7.3 10*3/uL 4.4-11.0 [facility] Work Phone: Blood erythrocytes count (nu mber/volume)on 12-04-2021 RBC (Bld) [#/Vol] 5.22 10*6/uL 4.6-6.2 [facility] Work Phone: Blood hemoglobin measurement (mass/volume)on 12-04-2021 Hemoglobin (Bld) [Mass/Vol] 15.4 g/dL 13.0-16.5 [facility] Work Phone: Blood lymphocytes/100 leukoc yteson 12-04-2021 Lymphocytes/100 WBC (Bld) 32.6 % 19-41 [facility] Work Phone: Blood monocytes/100 leukocyt eson 12-04-2021 Monocytes/100 WBC (Bld) 8.6 % 0-10 [facility] Work Phone: Blood platelet mean volumeon 12-04-2021 Platelet mean volume (Bld) [Entitic vol] 9.5 fL 6.2-12.0 [facility] Work Phone: Determination of erythrocyte mean corpuscular volume (MCV)on 12-04-2021 MCV (RBC) [Entitic vol] 90.2 fL 80-94 [facility] Work Phone: Direct bilirubinon 2 Bilirubin.direct [Mass/Vol] 0.15 mg/dL 0.00-0.30 [facility] Work Phone: Erythrocyte sedimentation ra sonya 12-04-2021 ESR (Bld) [Velocity] 7 mm/h 0-[facility]: Hematocrit Auto (Bld) [Volum e fraction]on 12-04-2021 Hematocrit (Bld) [Volume fraction] 47.1 % 40-54 [facility] Work Phone: Laboratory - Chemistry and C hemistry - challengeon 12-04-2021 ALP [Catalytic activity/Vol] 86 U/L 45-117 [facility] Work Phone: ALT [Catalytic activity/Vol] 31 U/L 16-61 [facility] Work Phone: Globulin (S) [Mass/Vol] 3.3 g/dL 2.2-4.2 [facility] Work Phone: Laboratory - Hematology and Cell countson 12-04-2021 Erythrocyte distribution width (RBC) [Entitic vol] 42.8 fL 35.1-43.9 [facility] Work Phone: Erythrocyte distribution width (RBC) [Ratio] 13.0 % 11.6-14.6 [facility] Work Phone: Immature granulocytes/100 WBC (Bld) 0.500 % 0.0-0.9 [facility] Work Phone: Comment on above: IG% - Immature Granu locytes (promyelocytes, myelocytes and metamyelocytes) > 1% indicates that a LEFT SHIFT is Present. MCH (RBC) [Entitic mass] 29.5 pg 27.0-32.0 [facility] Work Phone: Nucleated RBC/100 WBC (Bld) [Ratio] 0 % 0-5 [facility] Work Phone: MCHC Auto (RBC) [Mass/Vol]on 12-04-2021 MCHC (RBC) [Mass/Vol] 32.7 g/dL 32-36 [facility] Work Phone: No Panel Informationon 12-04 Estimated GFR (MDRD) Amer 90 mL/min >60 [facility] Work Phone: Comment on above: GFR Calc Estimated GFR (MDRD) Non-Af Amer 75 mL/min >60 [facility] Work Phone: Comment on above: Non- GFR Calc Platelets bldon 12-04-2021 Platelets (Bld) [#/Vol] 351 10*3/uL 150-450 [facility] Work Phone: Serum or plasma C reactive p rotein measurement (mass/volume)on 12-04-2021 CRP [Mass/Vol] mg/L 0.0-3.0 [facility] Work Phone: Comment on above: C-Reactive Protein ( CRP) provides useful information for thediagnosis, therapy and monitoring of inflammatory processesand associated diseases. For the evaluation of Relative Riskfor Cardiovascular Disease, a High Sensitivity CRP (HSCRP)should be ordered. Serum or plasma albumin kendra urement (mass/volume)on 12-04-2021 Albumin [Mass/Vol] 4.0 g/dL 3.2-5.0 [facility] Work Phone: Serum or plasma creatinine m easurement (mass/volume)on 12-04-2021 Creatinine [Mass/Vol] 1.08 mg/dL 0.70-1.30 [facility] Work Phone: Comment on above: The validity of the calculated GFR & GFRAA in patients over 70 years has not been determined. Clinical correlation is essential. Thin prep Papanicolaou smear with manual screeningon 12-04-2021 Thin prep Papanicolaou smear with manual screening 21 U/L 15-37 [facility] Work Phone: Absolute lymphocyte counton 09-10-2021 Lymphocytes Auto (Unsp spec) [#/Vol] 2.89 10*3/uL 0.83-4.51 [facility] Work Phone: Basophil percentageon 2021 Basophils/100 WBC (Bld) 0.9 % 0-1 [facility] Work Phone: Bilirubin [Mass/Vol] 0.60 mg/dL 0.20-1.00 [facility] Work Phone: Comment on above: For patients on eltr ombopag therapy, use of Dimension [place] TBIL is not recommended. Eosinophils/100 WBC (Bld) 1.6 % 0-5 [facility] Work Phone: Neutrophils (Bld) [#/Vol] 3.7 10*3/uL 2.0-7.7 [facility] Work Phone: Neutrophils/100 WBC (Bld) 48.4 % 47-70 [facility] Work Phone: Protein [Mass/Vol] 7.7 g/dL 6.4-8.2 [facility] Work Phone: WBC (Bld) [#/Vol] 7.6 10*3/uL 4.4-11.0 [facility] Work Phone: Blood erythrocytes count (nu mber/volume)on 09-10-2021 RBC (Bld) [#/Vol] 5.42 10*6/uL 4.6-6.2 [facility] Work Phone: Blood hemoglobin measurement (mass/volume)on 09-10-2021 Hemoglobin (Bld) [Mass/Vol] 16.3 g/dL 13.0-16.5 [facility] Work Phone: Blood lymphocytes/100 leukoc yteson 09-10-2021 Lymphocytes/100 WBC (Bld) 38.1 % 19-41 [facility] Work Phone: Blood monocytes/100 leukocyt eson 09-10-2021 Monocytes/100 WBC (Bld) 9.6 % 0-10 [facility] Work Phone: Blood platelet mean volumeon 09-10-2021 Platelet mean volume (Bld) [Entitic vol] 9.4 fL 6.2-12.0 [facility] Work Phone: Determination of erythrocyte mean corpuscular volume (MCV)on 09-10-2021 MCV (RBC) [Entitic vol] 89.9 fL 80-94 [facility] Work Phone: Direct bilirubinon 2 Bilirubin.direct [Mass/Vol] 0.15 mg/dL 0.00-0.30 [facility] Work Phone: Erythrocyte sedimentation ra sonya 09-10-2021 ESR (Bld) [Velocity] 3 mm/h 0-20 [facility] Work Phone: Hematocrit Auto (Bld) [Volum e fraction]on 09-10-2021 Hematocrit (Bld) [Volume fraction] 48.7 % 40-54 [facility] Work Phone: Laboratory - Chemistry and C hemistry - challengeon 09-10-2021 ALP [Catalytic activity/Vol] 95 U/L 45-117 [facility] Work Phone: ALT [Catalytic activity/Vol] 44 U/L 16-61 [facility] Work Phone: Globulin (S) [Mass/Vol] 3.9 g/dL 2.2-4.2 [facility] Work Phone: Laboratory - Hematology and Cell countson 09-10-2021 Erythrocyte distribution width (RBC) [Entitic vol] 42.0 fL 35.1-43.9 [facility] Work Phone: Erythrocyte distribution width (RBC) [Ratio] 12.8 % 11.6-14.6 [facility] Work Phone: Immature granulocytes/100 WBC (Bld) 1.400 % 0.0-0.9 [facility] Work Phone: Comment on above: IG% - Immature Granu locytes (promyelocytes, myelocytes and metamyelocytes) > 1% indicates that a LEFT SHIFT is Present. MCH (RBC) [Entitic mass] 30.1 pg 27.0-32.0 [facility] Work Phone: Nucleated RBC/100 WBC (Bld) [Ratio] 0 % 0-5 [facility] Work Phone: MCHC Auto (RBC) [Mass/Vol]on 09-10-2021 MCHC (RBC) [Mass/Vol] 33.5 g/dL 32-36 [facility] Work Phone: No Panel Informationon 09-10 Estimated GFR (MDRD) Amer 110 mL/min >60 [facility] Work Phone: Comment on above: GFR Calc Estimated GFR (MDRD) Non-Af Amer 91 mL/min >60 [facility] Work Phone: Comment on above: Non- GFR Calc Platelets bldon 09-10-2021 Platelets (Bld) [#/Vol] 403 10*3/uL 150-450 [facility] Work Phone: Serum or plasma C reactive p rotein measurement (mass/volume)on 09-10-2021 CRP [Mass/Vol] mg/L 0.0-3.0 [facility] Work Phone: Comment on above: C-Reactive Protein ( CRP) provides useful information for thediagnosis, therapy and monitoring of inflammatory processesand associated diseases. For the evaluation of Relative Riskfor Cardiovascular Disease, a High Sensitivity CRP (HSCRP)should be ordered. Serum or plasma albumin kendra urement (mass/volume)on 09-10-2021 Albumin [Mass/Vol] 3.8 g/dL 3.2-5.0 [facility] Work Phone: Serum or plasma creatinine m easurement (mass/volume)on 09-10-2021 Creatinine [Mass/Vol] 0.91 mg/dL 0.70-1.30 [facility] Work Phone: Comment on above: The validity of the calculated GFR & GFRAA in patients over 70 years has not been determined. Clinical correlation is essential. Thin prep Papanicolaou smear with manual screeningon 09-10-2021 Thin prep Papanicolaou smear with manual screening 25 U/L 15-37 [facility] Work Phone: No Panel Informationon 09-02 D-Dimer Quantitative (PE/DVT) 0.33 FEU/ug/m 0.27-0.49 [facility] Work Phone: Comment on above: NORMAL D-Dimer level (<0.50) indicates no DVT or PE. Laboratory - Microbiology an d Antimicrobial susceptibilityon 08-26-2021 SARS-CoV-2 (COVID-19) RNA ANGÉLICA+probe Ql (Unsp spec) Not detected Not Detect [facility] Work Phone: Comment on above: Normal [...] 08-26 Influenza Types A,B Direct FA (KARON) [facility] Work Phone: Office Visiton 03-14-2017 Documentation of current medications (procedure) Done Invalid Interpretation Code [facility] Work Phone: Tobacco use CPHS Never smoker Invalid Interpretation Code [facility] Work Phone: Office Visiton 11-29-2016 Protein mass conc Done [facility] Work Phone: [phone] Tobacco smoking status NHIS Never smoker [facility] Work Phone: [phone] Lab Report: Basic Metabolic Profile (BMP)on 09-10-2016 Anion gap 5 mmol/L Invalid Interpretation Code 5-15 [facility] Work Phone: [phone] Anion gap molar conc 5 mmol/L 5-15 [facility] Work Phone: [phone] Calcium mass conc 7.9 mg/dL Low 8.5-10.[address] [facility] Work Phone: [phone] Chloride molar conc 101 mmol/L Invalid Interpretation Code 98-107 [facility] Work Phone: [phone] CO2 29.0 mmol/L Invalid Interpretation Code 21.0-32.0 [facility] Work Phone: [phone] CO2 ppres (BldV) 29.0 mmol/L 21.0-32.[address] [facility] Work Phone: [phone] Creatinine 88.34 mL/min Invalid Interpretation Code [facility] Work Phone: [phone] Creatinine mass conc 1.01 mg/dL Invalid Interpretation Code 0.70-1.30 [facility] Work Phone: [phone] eGFR (non-black) 100 mL/min/{1.73_m2} Invalid Interpretation Code >60 [facility] Work Phone: [phone] EST GFR - AA 100 mL/min >60 [facility] Work Phone: [phone] GFR/1.73 sq M predicted among non-blacks MDRD vol rate/area (S/P/Bld) 82 mL/min/{1.73_m2} Invalid Interpretation Code >60 [facility] Work Phone: [phone] Glucose 108 mg/dL Invalid Interpretation Code 70-110 [facility] Work Phone: [phone] Glucose mass conc 108 mg/dL 70-[address] [facility] Work Phone: [phone] Potassium molar conc 4.0 mmol/L Invalid Interpretation Code 3.5-5.1 [facility] Work Phone: [phone] Sodium molar conc 135 mmol/L Low 136-[address] [facility] Work Phone: [phone] Urea nitrogen mass conc 19 mg/dL High 7-18 [facility] Work Phone: [phone] Urea nitrogen/Creatinine mass ratio 18.8 RATIO Invalid Interpretation Code 10-20 [facility] Work Phone: [phone] Lab Report: CBC W/Diff, Auto matedon 09-10-2016 Basophils/100 leukocytes 0.2 % Invalid Interpretation Code 0-1 [facility] Work Phone: [phone] Basophils/100 WBC (Bld) 0.2 % 0-1 [facility] Work Phone: [phone]) [phone] Eosinophils/100 leukocytes 1.7 % Invalid Interpretation Code 0-5 [facility] Work Phone: [phone]) [phone] Eosinophils/100 WBC (Bld) 1.7 % 0-5 [facility] Work Phone: [phone] Erythrocyte distribution width Ratio (RBC) 43.0 fL 35.1-43.9 [facility] Work Phone: [phone] Erythrocyte distribution width Ratio (RBC) 13.2 % 11.6-14.6 [facility] Work Phone: [phone] Erythrocytes (RBC) 4.69 10*6/uL Invalid Interpretation Code 4.6-6.2 [facility] Work Phone: [phone] Hematocrit (HCT) 42.4 % Invalid Interpretation Code 40-54 [facility] Work Phone: [phone] Hematocrit Volume Fraction (Bld) 42.4 % 40-54 [facility] Work Phone: [phone] Hemoglobin mass conc (Bld) 13.7 g/dL Invalid Interpretation Code 13.0-16.5 [facility] Work Phone: [phone] Immature granulocytes #/vol (Bld) 0.200 % 0.0-0.9 [facility] Work Phone: [phone] immature granulocytes, percentage of total cells, blood 0.200 % Invalid Interpretation Code 0.0-0.9 [facility] Work Phone: [phone] Lymphocytes 1.12 X10 3/UL Invalid Interpretation Code 0.83-4.51 [facility] Work Phone: [phone] Lymphocytes #/vol (Bld) 1.12 X10 3/UL 0.83-4.51 [facility] Work Phone: 1() 0 Lymphocytes/100 leukocytes 13.6 % Low 19-41 [facility] Work Phone: 1() 0 Lymphocytes/100 WBC (Bld) 13.6 % Low 19-41 [facility] Work Phone: [phone] MCH 29.2 pg Invalid Interpretation Code 27.0-32.0 [facility] Work Phone: 1) 0 MCH Entitic mass (RBC) 29.2 pg 27.0-32.0 [facility] Work Phone: [phone] MCHC 32.3 G/GL Invalid Interpretation Code 3236 [facility] Work Phone: [phone] MCHC mass conc (RBC) 32.3 G/GL 32-36 [facility] Work Phone: [phone] MCV 90.4 fL Invalid Interpretation Code 80-94 [facility] Work Phone: [phone] MCV Entitic volume (RBC) 90.4 fL 80-94 [facility] Work Phone: [phone] Monocytes/100 leukocytes 10.9 % High 0-10 [facility] Work Phone: [phone] Monocytes/100 WBC (Bld) 10.9 % High 0-10 [facility] Work Phone: [phone] neutrophil count, blood 6.0 X10 3/UL Invalid Interpretation Code 2.0-7.7 [facility] Work Phone: [phone] Neutrophils #/vol (Bld) 6.0 X10 3/UL 2.0-7.7 [facility] Work Phone: [phone] Neutrophils/100 leukocytes 73.4 % High 47-70 [facility] Work Phone: 1() 0 Neutrophils/100 WBC (Bld) 73.4 % High 47-70 [facility] Work Phone: [phone] Platelet mean volume Entitic volume (Bld) 9.1 fL 6.2-12.0 [facility] Work Phone: [phone] Platelets 263 10*3/mm3 Invalid Interpretation Code 150-450 [facility] Work Phone: [phone] Platelets #/vol (Bld) 263 10*3/mm3 150-450 [facility] Work Phone: [phone] PMV by Betty 9.1 fL Invalid Interpretation Code 6.2-12.0 [facility] Work Phone: [phone] RBC #/vol (Bld) 4.69 10*6/uL 4.6-6.[address] [facility] Work Phone: [phone] RDW-CA 13.2 % Invalid Interpretation Code 11.6-14.6 [facility] Work Phone: [phone] red blood cell distribution width, size density 43.0 fL Invalid Interpretation Code 35.1-43.9 [facility] Work Phone: [phone] WBC #/vol (Bld) 8.2 10*3/uL 4.4-11.0 [facility] Work Phone: [phone] WBC (Leukocytes) 8.2 10*3/uL Invalid Interpretation Code 4.4-11.0 [facility] Work Phone: [phone] Microbiology: MRSA/SAID SCRE ENon 09-01-2016 GE use only - for [employer] import when terms are not otherwise specified . Invalid Interpretation Code [facility] Work Phone: [phone] MRSA+SAID SCRN . [facility] Work Phone: [phone] Lab Report: Thyroid Stim Hor stephanie (TSH)on 08-31-2016 Thyrotropin Qn 1.14 u[iU]/mL Invalid Interpretation Code 0.358-3.74 [facility] Work Phone: [phone] Vital Signs Date Time Vital Sign Value Performing Clinician Facility 06-03-2025 14:58-0400 Body temperature 98.2 [degF] Dr. Ash Long MD Work Phone: [facility] 06-03-2025 14:58-0400 Body weight 97.[address] Ash Long MD Work Phone: [facility] 06-03-2025 14:58-0400 Diastolic blood pressure 84 mm[Hg] Dr. Ash Long MD Work Phone: [facility] 06-03-2025 14:58-0400 Heart rate 69 /min Dr. Ash Long MD Work Phone: [facility] 06-03-2025 14:58-0400 Respiratory rate 17 /min Dr. Ash Long MD Work Phone: [facility] 06-03-2025 14:58-0400 SaO2% (BldA) [Mass fraction] 95 % Dr. Ash Long MD Work Phone: [phone] [place] [address] 06-03-2025 14:58-0400 Systolic blood pressure 135 mm[Hg] Dr. Ash Long MD Work Phone: [phone])081-780050 [place] [address] 04-08-2025 11:14-0400 Body temperature 98.3 [degF] Dr. Ash Long MD Work Phone: [phone])[phone] [place] [address] 04-08-2025 11:14-0400 Diastolic blood pressure 80 mm[Hg] Dr. Ash Long MD Work Phone: 0(195)999-317615 [place] [address] 04-08-2025 11:14-0400 Heart rate 65 /min Dr. Ash Long MD Work Phone: 6(947)991-342615 [place] [address] 04-08-2025 11:14-0400 Respiratory rate 16 /min Dr. Ash Long MD Work Phone: 1(040)882-875115 [place] [address] 04-08-2025 11:14-0400 SaO2% (BldA) [Mass fraction] 98 % Dr. Ash Long MD Work Phone: 6(535)500-411115 [place] [address] 04-08-2025 11:14-0400 Systolic blood pressure 118 mm[Hg] Dr. Ash Long MD Work Phone: [phone])081-557515 [place] [address] 02-25-2025 14:58-0400 Body height 177.[address] Ash Long MD Work Phone: 3(040)392-671515 [place] [address] 02-25-2025 14:58-0400 Body mass index (BMI) [Ratio] 30.9 kg/m2 Dr. Ash Long MD Work Phone: 8(496)998-916515 [place] [address] 02-25-2025 14:58-0400 Body temperature 98.4 [degF] Dr. Ash Long MD Work Phone: [phone])402-415115 [place] [address] 02-25-2025 14:58-0400 Body weight 97.[address] Ash Long MD Work Phone: 0(085)256-409415 [place] [address] 02-25-2025 14:58-0400 Diastolic blood pressure 87 mm[Hg] Dr. Ash Long MD Work Phone: 9(623)265-032815 [place] [address] 02-25-2025 14:58-0400 Heart rate 77 /min Dr. Ash Long MD Work Phone: [facility] 02-25-2025 14:58-0400 Respiratory rate 15 /min Dr. Ash Long MD Work Phone: [facility] 02-25-2025 14:58-0400 SaO2% (BldA) [Mass fraction] 97 % Dr. Ash Long MD Work Phone: [facility] 02-25-2025 14:58-0400 Systolic blood pressure 138 mm[Hg] Dr. Ash Long MD Work Phone: 7(650)991-307650 [place] [address] 12-17-2024 06:41-0400 Body height 177.[address] Ash Long MD Work Phone: 1(100)548-410875 [address] 12-17-2024 06:41-0400 Body mass index (BMI) [Ratio] 30.7 kg/m2 Dr. Ash Long MD Work Phone: [facility] 12-17-2024 06:41-0400 Body temperature 98.6 [degF] Dr. Ash Long MD Work Phone: 5(197)313-718050 [place] [address] 12-17-2024 06:41-0400 Body weight 97.[address] Ash Long MD Work Phone: [facility] 12-17-2024 06:41-0400 Diastolic blood pressure 78 mm[Hg] Dr. Ash Long MD Work Phone: [facility] 12-17-2024 06:41-0400 Heart rate 100 /min Dr. Ash Long MD Work Phone: [facility] 12-17-2024 06:41-0400 SaO2% (BldA) [Mass fraction] 97 % Dr. Ash Long MD Work Phone: [facility] 12-17-2024 06:41-0400 Systolic blood pressure 124 mm[Hg] Dr. Ash Long MD Work Phone: [facility] 11-15-2023 07:35-0400 Body height 177.[address] Ash Long Work Phone: [facility] 11-15-2023 07:35-0400 Body mass index (BMI) [Ratio] 30.4 kg/m2 Dr. Ash Long Work Phone: [facility] 11-15-2023 07:35-0400 Body weight 96.[address] Ash Long Work Phone: [facility] 10-18-2023 13:39-0500 Body mass index (BMI) [Ratio] 30.2 kg/m2 Dr. Ash Long Work Phone: [facility] 10-18-2023 13:39-0500 Body temperature 98 [degF] Dr. Ash Long Work Phone: [facility] 10-18-2023 13:39-0500 Body weight 95.[address] Ash Long Work Phone: [facility] 10-18-2023 13:39-0500 Diastolic blood pressure 84 mm[Hg] Dr. Ash Long Work Phone: [facility] 10-18-2023 13:39-0500 Heart rate 75 /min Dr. Ash Long Work Phone: [facility] 10-18-2023 13:39-0500 Respiratory rate 16 /min Dr. Ash Long Work Phone: [facility] 10-18-2023 13:39-0500 Systolic blood pressure 142 mm[Hg] Dr. Ash Long Work Phone: [facility] 06-09-2023 15:31-0400 Body height 177.[address] Ash Long Work Phone: [facility] 06-09-2023 15:31-0400 Body mass index (BMI) [Ratio] 29.8 kg/m2 Dr. Ash Long Work Phone: [facility] 06-09-2023 15:31-0400 Body temperature 98 [degF] Dr. Ash Long Work Phone: [facility] 06-09-2023 15:31-0400 Body weight 94.[address] Ash Long Work Phone: [facility] 06-09-2023 15:31-0400 Diastolic blood pressure 70 mm[Hg] Dr. Ash Long Work Phone: [facility] 06-09-2023 15:31-0400 Heart rate 76 /min Dr. Ash Long Work Phone: [facility] 06-09-2023 15:31-0400 Respiratory rate 17 /min Dr. Ash Long Work Phone: [facility] 06-09-2023 15:31-0400 SaO2% (BldA) [Mass fraction] 97 % Dr. Ash Long Work Phone: [facility] 06-09-2023 15:31-0400 Systolic blood pressure 122 mm[Hg] Dr. Ash Long Work Phone: [facility] 04-08-2023 08:08-0400 Body temperature 97.7 [degF] Dr. Ash Long Work Phone: [facility] 04-08-2023 08:08-0400 Diastolic blood pressure 72 mm[Hg] Dr. Ash Long Work Phone: [facility] 04-08-2023 08:08-0400 Heart rate 70 /min Dr. Ash Long Work Phone: [facility] 04-08-2023 08:08-0400 Respiratory rate 18 /min Dr. Ash Long Work Phone: [facility] 04-08-2023 08:08-0400 SaO2% (BldA) [Mass fraction] 96 % Dr. Ash Long Work Phone: [facility] 04-08-2023 08:08-0400 Systolic blood pressure 107 mm[Hg] Dr. Ash Long Work Phone: [facility] 04-08-2023 06:48-0400 Body height 177.[address] Ash Long Work Phone: [facility] 04-08-2023 06:48-0400 Body mass index (BMI) [Ratio] 29.2 kg/m2 Dr. Ash Long Work Phone: [facility] 04-08-2023 06:48-0400 Body weight 92.[address] Ash Long Work Phone: [facility] 03-11-2023 08:28-0400 Body height 177.[address] Ash Long Work Phone: [facility] 03-11-2023 08:28-0400 Body mass index (BMI) [Ratio] 28.7 kg/m2 Dr. Ash Long Work Phone: [facility] 03-11-2023 08:28-0400 Body weight 90.[address] Ash Long Work Phone: [facility] 10-21-2022 07:57-0500 Body height 177.[address] Ash Long Work Phone: [facility] 10-21-2022 07:57-0500 Body mass index (BMI) [Ratio] 30.6 kg/m2 Dr. Ash Long Work Phone: [facility] 10-21-2022 07:57-0500 Body temperature 98 [degF] Dr. Ash Long Work Phone: [facility] 10-21-2022 07:57-0500 Body weight 96.[address] Ash Long Work Phone: [facility] 10-21-2022 07:57-0500 Diastolic blood pressure 80 mm[Hg] Dr. Ash Long Work Phone: [facility] 10-21-2022 07:57-0500 Heart rate 76 /min Dr. Ash Long Work Phone: [facility] 10-21-2022 07:57-0500 Respiratory rate 16 /min Dr. Ash Long Work Phone: [facility] 10-21-2022 07:57-0500 SaO2% (BldA) [Mass fraction] 98 % Dr. Ash Long Work Phone: [facility] 10-21-2022 07:57-0500 Systolic blood pressure 116 mm[Hg] Dr. Ash Long Work Phone: [facility] 08-18-2022 06:51-0500 Body temperature 98 [degF] Dr. Ash Long Work Phone: [facility] 08-18-2022 06:51-0500 Diastolic blood pressure 84 mm[Hg] Dr. Ash Long Work Phone: 1(125)189-282975 [address] 08-18-2022 06:51-0500 Heart rate 101 /min Dr. Ash Long Work Phone: 2(290)997-223450 [place] [address] 08-18-2022 06:51-0500 Respiratory rate 14 /min Dr. Ash Long Work Phone: [facility] 08-18-2022 06:51-0500 SaO2% (BldA) [Mass fraction] 98 % Dr. Ash Long Work Phone: 4(112)619-289850 [place] [address] 08-18-2022 06:51-0500 Systolic blood pressure 142 mm[Hg] Dr. Ash Long Work Phone: 4(073)879-181950 [place] [address] 06-28-2022 09:44-0400 Body height 177.[address] Ahs Long Work Phone: [facility] 06-28-2022 09:44-0400 Body mass index (BMI) [Ratio] 29.1 kg/m2 Dr. Ash Long Work Phone: [facility] 06-28-2022 09:44-0400 Body temperature 98.2 [degF] Dr. Ash Long Work Phone: [facility] 06-28-2022 09:44-0400 Body weight 92.[address] Ash Long Work Phone: 1(502)933-876350 [place] [address] 06-28-2022 09:44-0400 Diastolic blood pressure 74 mm[Hg] Dr. Ash Long Work Phone: [facility] 06-28-2022 09:44-0400 Heart rate 73 /min Dr. Ash Long Work Phone: [facility] 06-28-2022 09:44-0400 Respiratory rate 16 /min Dr. Ash Long Work Phone: [facility] 06-28-2022 09:44-0400 SaO2% (BldA) [Mass fraction] 98 % Dr. Ash Long Work Phone: [facility] 06-28-2022 09:44-0400 Systolic blood pressure 118 mm[Hg] Dr. Ash Long Work Phone: [facility] 12-27-2021 08:10-0400 Body temperature 98.4 [degF] Dr. Ash Long Work Phone: [facility] Work Phone: 12-27-2021 08:10-0400 Diastolic blood pressure 70 mm[Hg] Dr. Ash Long Work Phone: [facility] Work Phone: 12-27-2021 08:10-0400 Heart rate 91 /min Dr. Ash Long Work Phone: [facility] Work Phone: 12-27-2021 08:10-0400 Respiratory rate 14 /min Dr. Ash Long Work Phone: [facility] Work Phone: 12-27-2021 08:10-0400 SaO2% (BldA) [Mass fraction] 97 % Dr. Ash Long Work Phone: [facility] Work Phone: 12-27-2021 08:10-0400 Systolic blood pressure 114 mm[Hg] Dr. Ash Long Work Phone: [facility] Work Phone: 12-21-2021 08:44-0400 Body temperature 98 [degF] Dr. Ash Long Work Phone: [facility] Work Phone: 12-21-2021 08:44-0400 Diastolic blood pressure 68 mm[Hg] Dr. Ash Long Work Phone: [facility] Work Phone: 12-21-2021 08:44-0400 Heart rate 111 /min Dr. Ash Long Work Phone: [facility] Work Phone: 12-21-2021 08:44-0400 Respiratory rate 16 /min Dr. Ash Long Work Phone: [facility] Work Phone: 12-21-2021 08:44-0400 SaO2% (BldA) [Mass fraction] 98 % Dr. Ash Long Work Phone: [facility] Work Phone: 12-21-2021 08:44-0400 Systolic blood pressure 124 mm[Hg] Dr. Ash Long Work Phone: [facility] Work Phone: 12-21-2021 08:27-0400 Body height 177.[address] Ash Long Work Phone: [facility] Work Phone: 09-10-2016 06:29-0500 Body surface area Derived from formula 88.34 mL/min [facility] Work Phone: Encounters Encounter Date Encounter Type Care Provider Facility Start: 06-03-2025 End: 06-03-[address] Dk Caruso MD -[facility] Work Phone: Start: 06-03-2025 End: 06-03-[address] Ash Long MD Work Phone: [facility] Start: 05-07-2025 End: 05-07-[address] Ash Long MD Work Phone: -Laboratory Start: 05-07-2025 End: 05-07-[address] Ash Long MD Work Phone: -Laboratory Work Phone: Start: 05-07-2025 End: 05-07-2025 ambulatory 1 MONTICELLO Facility:[facility] Start: 04-10-2025 Registered [facility] -Laboratory Work Phone: Start: 04-10-2025 End: 04-10-[address] Ash Long MD Work Phone: -Laboratory Start: 04-10-2025 End: 04-10-[address] Ash Long MD -Laboratory Work Phone: Start: 04-10-2025 End: 04-10-2025 ambulatory Ash Long Facility:[facility] Start: 04-08-2025 End: 04-08-2025 Patient encounter procedure Spencer FARIAS [facility] Work Phone: Start: 04-08-2025 End: 04-08-[address] Ash Long MD Work Phone: -[facility] Start: 04-08-2025 End: 04-08-2025 ambulatory Spencer FARIAS Facility:[facility] Start: 02-28-2025 End: 02-28-[address] Ash Long MD Work Phone: -Laboratory Start: 02-28-2025 End: 02-28-2025 Patient encounter procedure Daiana Jenkins NP-C -Laboratory Work Phone: Start: 02-28-2025 End: 02-28-2025 ambulatory Daiana Jenkins Facility:[facility] Start: 02-25-2025 End: 02-25-2025 Patient encounter procedure Daiana Jenkins NP-C -[facility] Work Phone: Start: 02-25-2025 End: 02-25-[address] Ash Long MD Work Phone: [facility] Work Phone: Start: 02-06-2025 End: 02-06-[address] Ash Long MD Work Phone: [facility] Work Phone: Start: 02-06-2025 End: 02-06-[address] Ash Long MD Work Phone: -Laboratory Work Phone: Start: 02-06-2025 End: 02-06-2025 ambulatory 1 MONTICELLO Facility:[facility] Start: 01-07-2025 End: 01-07-[address] Ash Long MD Work Phone: [facility] Work Phone: Start: 01-07-2025 End: 01-07-2025 Patient encounter procedure Jose FARIAS -Laboratory, [facility] Work Phone: Start: 01-07-2025 End: 01-07-2025 ambulatory Jose FARIAS Facility:[facility] Start: 12-26-2024 ambulatory Ash Long Facility:[facility] Start: 12-26-2024 Non-patient / Non-visit Dr. Wilmer Choi MD -[facility] Start: 12-26-2024 End: 12-26-[address] Ash Long MD Work Phone: [facility] Work Phone: Start: 12-26-2024 End: 12-26-[address] Ash Long MD -Cardiovascular Services Work Phone: Start: 12-26-2024 End: 12-26-2024 ambulatory Ash Long Facility:[facility] Start: 12-17-2024 End: 12-17-2024 Patient encounter procedure Spencer FARIAS -[facility] Work Phone: Start: 12-17-2024 End: 12-17-2024 ambulatory Ash Long Facility:[facility] Start: 12-12-2024 End: 12-12-[address] Ash Long MD Work Phone: [facility] Work Phone: Start: 12-12-2024 End: 12-12-[address] Ash Long MD -Laboratory, [place] Work Phone: Start: 12-12-2024 End: 12-12-2024 ambulatory Ash Long Facility:[facility] Start: 11-07-2024 End: 11-07-[address] Ash Long MD Work Phone: [facility] Work Phone: Start: 11-07-2024 End: 11-07-[address] Ash Long MD Work Phone: -Laboratory Work Phone: Start: 11-07-2024 End: 11-07-2024 ambulatory 1 SONJA Facility:[facility] Start: 08-08-2024 End: 08-08-[address] Ash Long MD Work Phone: -Laboratory Work Phone: Start: 08-08-2024 End: 08-08-2024 ambulatory 1 SONJA Facility:[facility] Start: 12-12-[address] Ash Long Work Phone: [facility]-Physical Therapy Work Phone: Start: 12-08-2023 End: 12-08-[address] Ash Long Work Phone: [facility] Work Phone: Start: 12-08-2023 End: 12-08-[address] Ash Long Work Phone: [facility] Work Phone: Start: 11-15-2023 End: 11-15-[address] Ash Long Work Phone: [facility] Work Phone: Start: 11-11-2023 End: 11-11-[address] Ash Long Work Phone: [facility] Work Phone: Start: 11-11-2023 End: 11-11-[address] Ash Long Work Phone: [facility]-Radiology, [facility] Work Phone: Start: 10-18-2023 End: 10-18-[address] Ash Long Work Phone: [facility] Plastic Recon Surg Work Phone: Start: 09-15-2023 End: 09-15-[address] Ash Long Work Phone: [facility] Work Phone: Start: 09-15-2023 End: 09-15-[address] [facility] Start: 06-22-[address] Ash lechuga Work Phone: [facility] Start: 06-16-2023 End: 06-16-[address] Ash Long Work Phone: [facility] Work Phone: Start: 06-16-2023 End: 06-16-[address] [facility] Start: 06-09-2023 End: 06-09-[address] Ash Long Work Phone: [facility] Neurology Work Phone: Start: 04-08-2023 Non-patient / Non-visit Dr. Ash Long Work Phone: [facility] Start: 04-08-2023 End: 04-08-2023 Admission to same day surgery center Dr. Ash Long Work Phone: [facility]-Endoscopy Work Phone: Start: 04-08-2023 End: 04-08-[address] Ash Long Work Phone: [facility] Work Phone: Start: 03-11-2023 Non-patient / Non-visit Dr. Ash Long Work Phone: [facility] Work Phone: Start: 03-09-2023 End: 03-09-[address] Ash Long Work Phone: [facility] Work Phone: Start: 03-09-2023 End: 03-09-2023 Patient encounter procedure [facility]-Laboratory Work Phone: Start: 03-02-2023 End: 03-02-2023 ambulatory [facility] Work Phone: Start: 03-02-2023 End: 03-02-2023 Patient encounter procedure [facility]-Laboratory Work Phone: Start: 12-06-2022 End: 12-06-[address] Ash Long Work Phone: [facility] Work Phone: Start: 12-06-2022 End: 12-06-[address] Ash Long Work Phone: [facility]-Laboratory Start: 10-29-2022 End: 10-29-[address] Ash Long Work Phone: [facility]-Laboratory Start: 10-21-2022 End: 10-21-[address] Ash Long Work Phone: [facility] Neurology Start: 09-07-2022 End: 09-07-[address] Ash Long Work Phone: [facility] Work Phone: Start: 09-07-2022 End: 09-07-[address] Ash Long Work Phone: [facility]-Laboratory Start: 08-18-2022 End: 08-18-[address] Ash Long Work Phone: [facility] Start: 07-08-2022 End: 07-08-[address] Ash Long Work Phone: [facility] Work Phone: Start: 07-08-2022 End: 07-08-[address] [facility] Start: 06-30-2022 End: 06-30-[address] Ash Long Work Phone: [facility] Work Phone: Start: 06-30-2022 End: 06-30-[address] Ash Long Work Phone: [facility]-Laboratory Start: 06-28-2022 End: 06-28-[address] Ash Long Work Phone: [facility] Start: 06-09-2022 End: 06-09-[address] Ash Long Work Phone: [facility] Work Phone: Start: 06-09-2022 End: 06-09-[address] Ash Long Work Phone: [facility]-Laboratory Start: 05-31-2022 Non-patient / Non-visit Dr. Ash Long Work Phone: [facility] Start: 05-31-2022 End: 05-31-[address] Ash Long Work Phone: [facility] Work Phone: Start: 05-31-2022 End: 05-31-[address] [facility] Start: 03-09-2022 End: 03-09-[address] [facility] Start: 03-02-[address] Ash lechuga Work Phone: [facility] Start: 03-02-2022 End: 03-02-[address] Ash Long Work Phone: [facility] Start: 12-27-2021 End: 12-27-[address] Ash Long Work Phone: [facility] Start: 12-21-2021 End: 12-21-[address] Ash Long Work Phone: [facility] Start: 12-04-2021 End: 12-04-[address] Ash Long Work Phone: [facility] Start: 09-10-2021 End: 09-10-[address] Ash Long Work Phone: [facility] Start: 09-02-[address] Ash Long Work Phone: [facility] Start: 08-26-2021 End: 08-26-[address] Ash Long Work Phone: [facility] Virtual Visit Start: 08-26-[address] Ash lechuga Work Phone: [facility] Start: 08-26-2021 End: 08-26-[address] Ash Long Work Phone: [facility] Procedures Date Procedure Procedure Detail Performing Clinician Start: 04-10-2025 [address] inorganic phosphate measurement Dr[address] Ash Long MD Work Phone: Start: 04-10-2025 Urnls dip stick/tablet reagent auto microscopy Dr. Ash Long MD Work Phone: Start: 04-08-2025 X-ray of chest posteroanterior view Dr. Ash Long MD Work Phone: Start: 02-28-2025 Folic acid measurement, RBC Dr. Ash Long MD Work Phone: Start: 12-26-2024 Radionuclide imaging of perfusion of myocardium under exercise stress Dr. Ash Long MD Work Phone: Start: 12-08-2023 MRI of lumbar spine Dr. Ash Long Work Phone: Start: 11-11-2023 X-ray of lumbosacral spine Dr. Ash Long Work Phone: Start: 04-08-[address] Ash Long Work Phone: Start: 06-30-2022 X-ray of lumbar spine, two or three views Dr. Ash Long Work Phone: Start: 08-26-2021 Influenza Types A,B Direct FA (KARON) Dr. Ash Long Work Phone: Start: 08-11-2016 End: 09-01-2016 X-ray [...] S/P left unicompartmental knee replacement Dr. Ash Long Work Phone: Plan of Treatment Date Care Activity Detail Author Start: 04-08-2025 X-ray of chest posteroanterior view Ribs Uni Min 3V w/PA Chest [facility] Start: 04-08-2025 XR Ribs GE 3 Views and Chest PA [facility] Start: 02-25-2025 Vitamin B6 measurement [facility] Start: 11-16-2023 Patient referral [facility] Work Phone: Start: 04-08-2023 Patient discharge [facility] Start: 03-14-2017 End: 03-14-2017 X-ray exam, knee, 4 or more X-Ray, Knee [facility] Work Phone: Start: 10-18-2016 End: 10-18-2016 X-ray exam, knee, 4 or more X-Ray, Knee [facility] Work Phone: Start: 08-11-2016 End: 09-01-2016 X-ray exam l-s spine bending X-Ray, Spine, Lumbar, complete with bending views [facility] Work Phone: Start: 07-23-2016 End: 09-01-2016 Mri jnt of lwr extre w/o dye MRI Joint Lower Extremity [facility] Work Phone: Start: 05-07-2016 End: 09-01-2016 X-ray exam, knee, 4 or more X-Ray, Knee [facility] Work Phone: Cobalamin (Vitamin B 12) [Mass/volume] in Serum or Plasma [facility] Colonoscopy [facility] Folic acid measureme nt, RBC [facility] Magnesium measurement [facility] MR Lumbar spine [facility] Patient Education BACK%20PAIN [facility] Work Phone: Patient referral [facility] Work Phone: Thiamine measurement [facility] Immunizations Immunization Date Immunization Notes Care Provider Fa cili 07-19-2024 influenza, seasonal, injectable, preservative free Dr. Ash Long MD Work Phone: [facility] 07-11-2023 influenza, injectabl e, quadrivalent, preservative free Dr. Ash Long Work Phone: [facility] 06-23-2022 influenza, injectabl e, quadrivalent, preservative free Dr. Ash Long Work Phone: [facility] 06-23-2022 influenza, seasonal, injectable Dr. Ash Long Work Phone: [facility] 05-21-2022 Covid Moderna Bivale nt Booster Dr. Ash Long Work Phone: [facility] 07-08-2021 Covid (Moderna) Dr. Ash cartagena Work Phone: [facility] 06-02-2021 influenza, injectabl e, quadrivalent, preservative free Dr. Ash Long Work Phone: [facility] 06-02-2021 influenza, seasonal, injectable Dr. Ash Long Work Phone: [facility] 10-06-2020 Covid (Moderna) Dr. Ash cartagena Work Phone: [facility] 09-08-2020 Valeriaid (Moderna) Dr. Ash cartagena Work Phone: [facility] 06-23-2020 influenza, injectabl e, quadrivalent, preservative free Dr. Ash Long Work Phone: [facility] 06-23-2020 influenza, seasonal, injectable Dr. Ash Long Work Phone: [facility] 03-10-2020 hepatitis B vaccine, adult dosage Dr. Ash Long Work Phone: [facility] 10-11-2019 hepatitis B vaccine, adult dosage Dr. Ash Long Work Phone: [facility] 09-10-2019 hepatitis B vaccine, adult dosage Dr. Ash Long Work Phone: [facility] 09-10-2019 influenza, injectabl e, quadrivalent, preservative free Dr. Ash Long Work Phone: [facility] 09-10-2019 influenza, seasonal, injectable Dr. Ash Long Work Phone: [facility] 05-07-2016 tetanus and diphther ia toxoids, adsorbed, preservative free, for adult use (2 Lf of tetanus toxoid and 2 Lf of diphtheria toxoid) Dr. Ash Long Work Phone: [facility] Payers Date Payer Category Payer Self-pay [id number] 2014 Unknown [id number] Private Health Insurance [id number] 2 Unknown [id number] Unknown [facility] [id number] a [id number] Unknown [id number] Unknown [id number] Unknown [id number] Unknown [id number] Unknown [id number] Unknown [id number] Unknown [id number] Unknown [id number] [id number] Unknown [id number] [id number] Unknown [id number] [id number] Unknown [id number] [id number] Unknown [id number] [id number] Unknown [id number] [id number] Unknown [id number] [id number] Unknown [id number] [id number] Unknown [id number] [id number] Unknown [id number] Social History Date Type Detail Facility Start: 08-26-2021 End: 11-15-2023 Tobacco smoking status NHIS Unknown if ever smoked [facility] Start: 1965 Sex Assigned At Male [facility] Start: 12-14-2023 Tobacco smoking stat us ORIS Never smoked tobacco (finding) [facility] Start: 11-21-2024 End: 12-31-2024 Sex Male (finding) [facility] Sex Male [facility] Goals Date Patient Goal Desired Activity /State Mental Status Date Assessment Result Facility 04-08-2023 Cognitive function Voice/Name [facility] Work Phone: Clinical Notes 04-08-2023 to 06-03-2025 Note Date & Type Note Facility 06-03-2025 Progress note [facility] 06-03-2025 Progress note Note Date/Time June 03, 2025 3:43pm [facility] [address] [place] [address], [address] [place] [address] OFFICE VISIT Date of Service: 06/03/25 MR#: [id number] Acct: [id number] Name: RAMU BARLOW Rep #: [id number] : 1965 Provider: Dr. Melissa Caruso MD Age/Sex: 60/M Location: [facility]. Status: Signed HPI HPI Chief Complaint: Details: Interim History: Ramu returns for follow-up visit. He has a history of hypothyroidism, obstructive sleep apnea (he did not tolerate CPAP), and psoriatic arthritis. Hebegan to experience tingling pain in the feet around 2015. He now describes thediscomfort in the feet as a hot feeling. This has worsened over time. His symptoms are worse at night or when he is at rest. He had also experienced occasional brief shock type sensation in the feet; this diminished in frequency. He continues to experience tingling in the feet has extended up to his knees bilaterally. He denied having weakness. He has a history of low back pain that is worsened with activity; his low back pain occurs intermittently and is triggeredby activities that places strain on his lower back. He no longer experiences lower extremity radicular pain. Physical therapy was of benefit for his low back pain. He was evaluated by an orthopedic surgeon, Dr. Buckner, and lumbar surgery was not felt to be warranted. He has had chronic neck pain due to arthritis. He has occasional transient numbness and tingling in the hands which occurs at night and is alleviated with position change of his upper extremities. His hand tingling is mild. His hand symptoms started around 2014. He has leg restlessness at night which is alleviated by leg movement. A trial of ropinirole in years past was not well-tolerated. His leg restlessness is not a prominent symptom. He had a partial left knee replacement. He consumes about 1 to 2 ounces of liquor daily. Duloxetine was of benefit for hisneuropathic pain however he experienced side effects of tremulousness and sexualdysfunction that occurred despite a reduction of his dose of duloxetine to 30 mgevery other day; duloxetine was subsequently discontinued. He did not have worsening of his neuropathic pain following discontinuation of duloxetine. His B12 level is near the low end of the normal range. A B12 injection was not of symptomatic benefit. He denied having fatigue. He takes an oral B12 supplement. He takes Humira for his psoriatic arthritis. Physical Exam: Neuro: The patient is awake and alert and responds appropriately; speech is fluent Heart: Regular rate and rhythm HEENT: Tympanic membrane's are clear Supplemental Info GRISEL (03/19/2020): Negative Rheumatoid factor (03/19/2020): <10 (negative) EKG (09/15/2020): Normal sinus rhythm with sinus arrhythmia. Normal EKG. TSH, vitamin D, CMP (03/02/2022): Normal EMG/nerve conduction studies of the lower extremities (05/31/2022): Findings: Nerve conduction studies were performed in the right and left lower extremities.The right peroneal motor study recording the extensor digitorum brevis showed a normal amplitude, normal distal latency and normal conduction velocity. No conduction block or focal slowing was present across the fibular neck. The righttibial motor study recording the abductor hallucis brevis showed a normal amplitude, normal distal latency and normal conduction velocity. Right sural sensory response showed a normal amplitude and slightly reduced conduction velocity.? Right superficial peroneal sensory response showed a normal amplitude and borderline conduction velocity. Right medial plantar response showed a normal amplitude and conduction velocity. The left peroneal motor study recording the extensor digitorum brevis showed a normal amplitude, normal distal latency and normal conduction velocity. No conduction block or focal slowing was present across the fibular neck. The left tibial motor study recording the abductor hallucis brevis showed a normal amplitude, normal distal latency and normal conduction velocity. Left sural sensory response showed a normal amplitude and slightly reduced conduction velocity. Left superficial peroneal sensory response showed a normal amplitude and borderline conduction velocity. Left medial plantar response showed a slightly reduced amplitude and normal conduction velocity. Needle EMG of the left lower extremity and paraspinal muscles was performed. No denervation was present in any muscle. Motor unit morphology, activation, and recruitment patterns were normal. Needle EMG of the right lower extremity was omitted given the symmetry of the patient's symptoms and paucity of findings on the left. Impression: This is a mildly abnormal study. There is no definitive electrophysiologic evidence of peripheral neuropathy in the lower extremities. That said, the mildly reduced sensory velocities in the lower extremities may be indicative of an early, sensory predominant peripheral neuropathy. A repeat study in 3 months could be considered if symptoms continue to progress clinically. In addition, please note: routine nerve conduction studies and needle EMG assessthe larger, myelinated motor and sensory fibers. Thus, routine electrodiagnosticstudies may be insensitive in detecting a peripheral neuropathy restricted to small fibers alone (i.e., pain, temperature and autonomic fibers). CBC, creatinine, liver profile, ESR, C-reactive protein (06/09/2022): Unremarkable. BMP, iron, ferritin, thiamine, B12, folate, TSH, free T4, serum free light chains (06/30/2022): Thiamine 217.6 (high), folate 85.2 (high), free kappa lightchains 19.6 (high), B12 342 (near low end of normal range). Lumbar x-rays (06/30/2022): FINDINGS: VERTEBRAE: Bilateral L5 spondylolysis noted with grade 1 spondylolisthesis. Stable mild retrolisthesis of L4 on L5. Mild vertebral body osteophytosis. Preserved vertebral body height. No fracture. Preservation of the normal lumbar lordosis. No significant facet arthropathy. DISC SPACES: No acute findings. Disc spaces are maintained. IMPRESSION: No acute abnormality. No interval change. These images were reviewed on 09/08/2022.? The grade 1 spondylolisthesis is at L5-S1.? Other findings are as above. Serum protein electrophoresis, serum immunoelectrophoresis and urine immunoelectrophoresis (07/08/2022):?M spike not observed.? No monoclonality detected on urine immunoelectrophoresis.? Presence of monoclonal protein is unclear at this time on serum immunoelectrophoresis Serum protein electrophoresis, serum immunofixation (10/25/2022): No monoclonality detected, M spike not observed. CBC, ESR, BUN/creatinine, liver profile, C-reactive protein (03/09/2023): C-reactive protein 7.78 (high) Lumbar x-rays (11/11/2023): FINDINGS: VERTEBRAE: Vertebral body heights preserved. 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 L5 spondylolysis. Chronic shortening of the AP diameter of L5 compared to L4. ALIGNMENT: Unchanged grade 1 L5-S1 spondylolisthesis. INTERVERTEBRAL DISCS: Mild spondylosis of L5-S1. IMPRESSION: No acute fracture or dislocation identified in the lumbar spine. Mild degenerative change of the lower lumbar spine, similar to prior. These images were reviewed on 02/09/2024. Lumbar MRI (12/08/23): FINDINGS: T12-L1: Normal endplates. Normal disc height, hydration and morphology. Normal bilateral facet joints. Normal central canal and bilateral lateral recesses. Normal bilateral intervertebral neural foramina. Normal lumbar lordosis. There is no substantial scoliosis. Normal conus medullaris that terminates at T12-L1 L1-2: Normal endplates. Normal disc height, hydration and morphology. Normal bilateral facet joints. Normal central canal and bilateral lateral recesses. Normal bilateral intervertebral neural foramina. L2-3: Normal endplates. Normal disc height, desiccation and minimal annular bulge.. Facet arthropathy and thickening of ligamenta flava.. Normal central canal and bilateral lateral recesses. Mild to moderate bilateral neural foraminal encroachment. L3-4: Normal endplates. Normal disc height, desiccation and minimal annular bulge.. Mild facet arthropathy and thickening of ligamenta flava. Normal central canal and bilateral lateral recesses. Mild to moderate bilateral neural foraminal stenosis. L4-5: Grade 1 retrolisthesis Normal endplates. Normal disc height, desiccation and mild bulging disc osteophyte complex.. Facet arthropathy. Mild narrowing of the central canal. Normal bilateral lateral recesses. Severe bilateral neural foraminal stenosis exaggerated by shortened pedicles L5-S1: Grade 1 spondylolisthesis and spondylolysis. Normal endplates. Normal disc height, desiccation mild bulging disc osteophyte complex. Normal bilateral facet joints. Normal central canal and bilateral lateral recesses. Moderate to severe bilateral neural foraminal stenosis. Normal visualized sacral ala. Normal visualized paraspinous soft tissue structures. No change since prior exam given inherent differences in imaging modalities IMPRESSION: No evidence for acute fracture or other significant bony pathology. Retrolisthesis at L4-5 and spondylolisthesis L5-S1. Multilevel spinal stenosis secondary to disc disease and facet arthropathy most severe at L4-5 and L5-S1. These images were reviewed on 02/09/2024. CBC, ESR, C-reactive protein, creatinine, EGFR, liver profile (02/06/2025): Unremarkable. Magnesium, thiamine, B12, folate (02/28/2025): B12 280 (near low end of normal range, magnesium 2.3 (high) TSH, free T4, free T3, CMP, lipid profile (nonfasting) (04/10/2025): [id number] (high), cholesterol 200 (normal), LDL 93 (normal), HDL 48 (normal) CBC, ESR, liver profile, C-reactive protein (05/07/2025): Unremarkable. Assessment and Plan Assessment and Plan (1) Polyneuropathy: Status: Chronic (2) RLS (restless legs syndrome): Status: Chronic (3) Low back pain: Status: Chronic Plan Details Additional Comments: The patient has neuropathic pain in the feet that I suspect is due to a polyneuropathy. EMG/nerve conduction studies of the lower extremities reveal mild sensory nerve abnormalities that I suspect represent a very mild polyneuropathy. A small fiber polyneuropathy component, that would not be detectable byEMG/nerve conduction study, may also be present. His polyneuropathy may be an idiopathic polyneuropathy however he does have a history of hypothyroidism whichmay predispose to development of polyneuropathy. Duloxetine was not well-tolerated. Diclofenac gel was not of benefit. His laboratory evaluation for polyneuropathy revealed abnormal serum free light chains and serum immunofixation that revealed presence of monoclonal protein to be unclear at the time of this study (July 2022). A repeat serumprotein electrophoresis and serum immunofixation revealed no monoclonality and no M spike was observed. His neuropathic pain has increased in severity. Previously, the pain was isolated to his feet but it now extends up to his knees bilaterally. His pain primarily occurs at night or when he is at rest and is described as burning in character. He consumes 1 to 2 ounces of liquor daily. An oral magnesium supplement was not of benefit for his lower extremity discomfort. - I will have him try alpha lipoic acid 300 mg twice daily for his neuropathic pain. If this is ineffective he may increase alpha lipoic acid to 600 mg twice daily. - I will have him try Biofreeze or other topical agent containing menthol. - He had been advised to reduce his alcohol consumption. - Treatment with gabapentin may be a future consideration if his neuropathic pain should persist. His B12 level was near the low end of the normal range. - He has initiated B12 1000 mcg orally daily. He has intermittent nighttime bilateral hand numbness and tingling that I suspect is due to entrapment neuropathies (carpal tunnel syndrome and/or cubitaltunnel syndrome) and less likely due to a polyneuropathy. His hand symptoms have diminished in severity and are mild and intermittent and are alleviated by position change of his arms. - His course will be followed. He has psoriatic arthritis. He has chronic neck pain and low back pain. He reported that arthritic changes were noted on prior cervical spine imaging (an official report is presently not available). He has had a partial left knee replacement. He no longer experiences lower extremity radicular pain. He has low back pain now occurs only with performing activity that places a strain on his back but throughout most of the day he does not experience significant back discomfort. His lumbar MRI reveals mild central canal stenosis at L4-5, mild anterior listhesis at L5-S1, mild retrolisthesis at L4-5, and multilevel bilateral foraminal stenosis that ranges from mild to severe. He was seen by anorthopedic surgeon, Dr. Buckner, and surgery was not recommended. Physical therapy was of benefit. His spinal axis pain is overall mild. - He takes Humira. He has mild restless leg syndrome/periodic leg movement syndrome. A prior trial of ropinirole was not well-tolerated. His leg restlessness is not a prominent symptom. Magnesium oxide was not of benefit. I will have him return for reassessment in 6 months. 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: No Accompanied by: Self Allergies No Known Allergies Allergy (Verified 06/03/25 15:02) [facility] Medical History (Updated 04/08/25 @ 11:24 by Spencer FARIAS, DINORA) Contusion of right chest wall Abrasion of left little finger Contusion of [...] physical activity do you participate in: none danny/gnosticism: Adventism seatbelt use: always additional social history: pt denies smoking, denies vaping, denies marijuana use, denies edibles, denies using aspirin, denies using ibuprofen Coding Level of Care Code Off vis,est,level 3 Diagnoses Polyneuropathy G62.9 RLS (restless legs syndrome) G25.81 Low back pain M54.50 06/03/25 1702 <Electronically signed by Dk hayward MD> Date _ Dk Caruso MD Cosigner Signature: Date (if applicable) CC: ~ [facility] Work Phone: 1(435) 871-506308-04-2025 Radiology Diagnostic study note [facility] Imaging Services [address] [place], [place] [id number] Ribs Uni Min 3V w/PA Chest MR#: [id number] Acct: [id number] Name: RAMU BARLOW Rep #: [id number] : 1965 M 60 From: Brad Renner MD PCP: Dr. Ash Long MD Status: REG Clint SORAYA Study:Ribs Uni Min 3V w/PA Chest Date of Exam : 04/08/25 Exam# [id number] Ordering Dr: St yifan Brush PA PA PROCEDURE: RIBS UNI MIN 3V W/PA CHEST 04/08/2025 REASON FOR EXAM: PAIN TECHNIQUE: RIBS UNI MIN 3V W/PA CHEST COMPARISON: September 15, 2020, March 19, 2020 FINDINGS: Findings: The lungs are clear. There is no pneumothorax or pleural effusion. The heart is normal size. Dedicated images of the right chest/ribs shows no fracture Other: No foreign body RAD/Ribs Uni Min 3V w/PA Chest IMPRESSION: No fracture or pneumothorax. Reading Location: [id number] CC: Dr. Ash Long MD; DINORA Edouard ~ Tai Chi Instructor: Signed [facility]06-23-2025 Evaluation note* Diagnosis Onset Date Resolution Status Admit Date Low back pain chronic February 25, 2025 2:55pm Polyneuropathy chronic February 25, 2025 2:55pm RLS (restless legs syndrome) chronic February 25, 2025 2:55pm [facility] Work Phone: 1(671) 662-815406-23-2025 Evaluation note* Diagnosis Onset Date Resolution Status Admit Date Low back pain chronic February 25, 2025 2:55pm Polyneuropathy chronic February 25, 2025 2:55pm RLS (restless legs syndrome) chronic February 25, 2025 2:55pm Contusion of right chest wall acute April 08, 2025 10:54am [facility] Work Phone: 1(380) 107-516906-23-2025 Evaluation note* Diagnosis Onset Date Resolution Status Admit Date Low back pain chronic February 25, 2025 2:55pm Polyneuropathy chronic February 25, 2025 2:55pm RLS (restless legs syndrome) chronic February 25, 2025 2:55pm Contusion of right chest wall acute April 08, 2025 10:54am Low back pain chronic May 072024 2:48pm Polyneuropathy chronic June 03, 2025 2:48pm RLS (restless legs syndrome) chronic June 03, 2025 2:48pm [facility] Work Phone: [phone] Procedure [facility]08[facility]23 [facility] N[facility]* Chief Complaint COVID-19 Cough Reason for Visit Viral URI with cough [facility] Work Phone: evaluation note* Diagnosis Onset Date Resolution Status Viral URI with cough acute [facility] Work Phone: evaluation note* Diagnosis Onset Date Resolution Status Viral URI with cough acute Acute bacterial sinusitis ac sanket Cough acute [facility] Work Phone: evaluation noteNo assessment information available [facility] Work Phone: evaluation note* Diagnosis Onset Date Resolution Status Low back pain chronic Polyneuropathy chronic RLS (restless legs syndrome) chronic [facility] Work Phone: evaluation note* Diagnosis Onset Date Resolution Status Low back pain chronic Polyneuropathy chronic RLS (restless legs syndrome) chronic [facility] Work Phone: evaluation note* Diagnosis Onset Date Resolution Status COVID-19 acute Low back pain chronic Polyneuropathy chronic [facility] Work Phone: evaluation note* Diagnosis Onset Date Resolution Status Polyneuropathy chronic [facility] Work Phone: evaluation note* Diagnosis Onset Date Resolution Status 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 Squamous cell skin cancer ac sanket Spondylolisthesis, lumbar region acute [facility] Work Phone: evaluation note* Diagnosis Onset Date Resolution Status Admit Date Low back pain chronic February 25, 2025 2:55pm Polyneuropathy chronic February 25, 2025 2:55pm RLS (restless legs syndrome) chronic February 25, 2025 2:55pm [facility] Work Phone: History and physical note Author Clarice Gibbs [facility] April 08, 2023 7:23am Note Date/Time April 08, 2023 7:2 4am [facility] Medical Records Department [address] [place] [address] History & Physical Exam 04/08/23721 MR#: [id number] Acct: [id number] Name: RAMU BARLOW Rep #:[id number] : 1965 58 From: Clarice Gibbs MD PCP: Dr. Ash Long MD Status:REG S DC Location: [facility]16-1 HPI - General General Date of Service: [...] blood. Patient [place] any chronic abdominal pain/nausea/vomiting/reflux. [facility] Medical History (Updated 04/04/23 @ 15:54 by [...] physical activity do you participate in: none danny/gnosticism: Adventism seatbelt use: always Past Medical/Surgical History Planned [...] 06:47) Discharge Is Pt Admitted From a Fpc, or a Residential: No After D/C, Where Do you Plan [...] Cosigner Signature (if applicable): CC: Dr. Ash Long MD; Dr. Clarice Gibbs MD~ Signed [facility] Work Phone: Hospital Discharge instructionsAmbulatory Orders* Physical Therapy Referral Location: None Selected [facility] Work Phone: Reason for referral (narrative)No reason for referral [facility] Work [facility]: Family History No Family History Records Found Relationship Condition Age at Onset Recorded Date/T nicole Not Specified Arthritis Unknown father Diabetes mellitus Unknown Hypertension Unknown Obstructive sleep apnea syndrome Unknown Advance Directives No Advanced Directives Records Found Advance Directive Response Recorded Date/ Time Advance Directives Yes September 09, 2016 4:19pm Living Will Yes September 15 5:44pm Power of Amplifier Mechanic Yes September 15, 2020 5:44pm Advance Directive Response Recorded Date/ Time Advance Directives Yes December 21 8:27am Living Will Yes December 21, 2021 8:27am Power of Amplifier Mechanic Yes December 21 8:27am Advance Directive Response Recorded Date/ Time Advance Directives Yes December 21 7:27am Living Will Yes December 21, 2021 7:27am Power of Amplifier Mechanic Yes December 21 7:27am Advance Directive Response Recorded Date/ Time Name of Medical Power of Amplifier Mechanic - ALICIA April 04, 2023 3:47pm Advance Directives Yes December 21 8:27am Living Will Yes April 04, 2023 3:47pm Power of Amplifier Mechanic Yes April 04 3:47pm Advance Directive Response Recorded Date/ Time Advance Directives Yes December 21 7:27am Living Will Yes April 04, 2023 2:47pm Power of Amplifier Mechanic Yes April 04 2:47pm Advance Directive Response Recorded Date/ Time Advance Directives Yes December 21 8:27am Living Will Yes April 04, 2023 3:47pm Power of Amplifier Mechanic Yes April 04 3:47pm Advance Directive Response Recorded Date/ Time Advance Directives Yes December 21 8:27am Advance Directive Response Recorded Date/ Time Living Will Yes April 04, 2023 3:47pm Do you have a Healthcare Power of Amplifier Mechanic? 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 [employer] December 17, 2024 6:4 9am CHEST PAIN December 26, 2024 6:0 1am CHEST PAIN December 26, 2024 4:5 9pm 1 Y FU February 25, 2025 2:55 pm INT LABS February 28, 2025 6:22 am Chief Complaint Admit Date SINUS DRAINAGE, COUGH, COLD SYMPTOMS Apr 2024 6:37am 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 [employer] December 17, 2024 6:4 9am CHEST PAIN December 26, 2024 6:0 1am CHEST PAIN December 26, 2024 4:5 9pm 1 Y FU February 25, 2025 2:55 pm INT LABS February 28, 2025 6:22 am concern for broken rib/ r side April 10:54am pain April 08, 2025 10: 58am Chief Complaint Admit Date SINUS DRAINAGE, COUGH, COLD SYMPTOMS Apr 2024 6:37am 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 [employer] December 17, 2024 6:4 9am CHEST PAIN December 26, 2024 6:0 1am CHEST PAIN December 26, 2024 4:5 9pm 1 Y FU February 25, 2025 2:55 pm INT LABS February 28, 2025 6:22 am concern for broken rib/ r side April 10:54am pain April 08, 2025 10: 58am 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 April 10, 2025 11: 48am Reason for Visit Admit Date Low back pain February 25, 2025 2:55 pm Polyneuropathy February 25, 2025 2:55 pm RLS (restless legs syndrome) February 25, 2025 2:55pm Contusion of right chest wall April 10:54am Chief Complaint Admit Date CHEST PAIN December 26, 2024 6:0 1am CHEST PAIN December 26, 2024 4:5 9pm 1 Y FU February 25, 2025 2:55 pm INT LABS February 28, 2025 6:22 am concern for broken rib/ r side April 10:54am pain April 08, 2025 10: 58am 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 April 10, 2025 11: 48am Chief Complaint Admit Date 1 Y FU February 25, 2025 2:55 pm INT LABS February 28, 2025 6:22 am concern for broken rib/ r side April 10:54am pain April 08, 2025 10: 58am 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 April 10, 2025 11: 48am Chief Complaint Admit Date 1 Y FU February 25, 2025 2:55 pm INT LABS February 28, 2025 6:22 am concern for broken rib/ r side April 10:54am pain April 08, 2025 10: 58am 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 April 10, 2025 11: 48am 3 M FU June 03, 2025 2:48pm Reason for Visit Admit Date Low back pain February 25, 2025 2:55 pm Polyneuropathy February 25, 2025 2:55 pm RLS (restless legs syndrome) February 25, 2025 2:55pm Contusion of right chest wall April 10:54am Low back pain June 03, 2025 2:48pm Polyneuropathy June 03, 2025 2:48pm RLS (restless legs syndrome) May 072024 2:48pm Summary Purpose Additional Source Comments Goals (unrecognized [...] Active Member Role Status Dates Dr. Ash Long MD Family Provider Active Dr. Ash Long MD Primary Care Provider Active Team Status: Active Member Role Status Dates Dr. Ash Long MD Primary Care Provi brian, Referring Provider, Other Provider Active Dr. Augustus Merino DO Attending Provider Active Team Status: Inactive Member Role Status Dates Dr. Ash Long MD Primary Care Provider, Referring Provider Active Dr. Dk Caruso MD Attending Provider Active Team Status: Inactive Member Role Status Dates Dr. Ash Long MD Primary Care Provider, Referring Provider Active Spencer FARIAS, PA Attending Provider Active Team Status: Inactive Member Role Status Dates Dr. Ash Long MD Primary Care Provi brian, Attending Provider, Referring Provider Active Team Status: Inactive Member Role Status Dates Dr. Ash Long MD Primary Care Provider Active TAMY HUIZAR Attending Provider, Referring Provider Active Team Status: Inactive Member Role Status Dates Dr. Ash Long MD Primary Care Provider Active Dr. Dk Caruso MD Attending Provider, Referring Provider Active Team Status: Inactive Member Role Status Dates Dr. Ash Long MD Primary Care Provider Active Dr. Jose Caro MD Attending Provider, Referring Pro vider Active Team Status: Inactive Member Role Status Dates Dr. Ash Long MD Primary Care Provider Active Dr. Dk Caruso MD Attending Provider Active Dk BRAGA MD Referring Provider Active Team Status: Inactive Member Role Status Dates Dr. Ash Long MD Primary Care Provider Active TAMY HUIZAR Attending Provider Active Team Status: Active Member Role Status Dates Dr. Ash Long MD Primary Care Provider Active Dr. Jose Caro MD Attending Provider, Referring Pro vider Active Team Status: Active Member Role Status Dates Dr. Ash Long MD Primary Care Provider Active Nayeli Shanks Attending Provider Active Team Status: Active Member Role Status Dates Dr. Ash Long MD Primary Care Provider, Referring Provider Active Dr. Clarice Gbibs MD Attending Provider, Other Pro vider Active Team Status: Inactive Member Role Status Dates Dr. Ash Long MD Primary Care Provider, Referring Provider Active Dr. Clarice Gibbs MD Attending Provider Active Team Status: Inactive Member Role Status Dates Dr. Ash Long MD Primary Care Provider Active DAYANARA HUIZAR Attending Provider, Referring Prov ider Active Team Status: Active Member Role Status Dates Dr. Ash Long MD Primary Care Provider Active Health Risk Assessment Attending Provider, Referring P rovider Active Team Status: Inactive Member Role Status Dates Dr. Ash Long MD Primary Care Provider, Referring Provider Active Dr. Zenobia Paul MD Attending Provider Active Team Status: Inactive Member Role Status Dates Dr. Ash Long MD Primary Care Provider, Referring Provider Active Dr. Nam Cifuentes MD Attending Provider Active Team Status: Inactive Member Role Status Dates Dr. Ash Long MD Primary Care Provider Active Dr. Nam Cifuentes MD Attending Provider, Referring Pr ovider Active Team Status: Active Member Role Status Dates Dr. Ash Long MD Primary Care Provider Active Dr. Nam Cifuentes MD Attending Provider, Referring Pr ovider Active Team Status: Inactive Member Role Status Dates Dr. Ash Long MD Primary Care Provider Active Start: August 08, 2024 End: August 08, 2024 DAYANARA HUIZAR Attending Provider Active St art: August 08, 2024 End: August 08, 2024 Team Status: Inactive Member Role Status Dates Dr. Ash Long MD Primary Care Provider Active Start: November 07, 2024 End: November 07, 2024 DAYANARA HUIZAR Attending Provider Active St art: November 07, 2024 End: November 07, 2024 DAYANARA HUIZAR Referring Provider Active St art: November 07, 2024 End: November 07, 2024 Team Status: Inactive Member Role Status Dates Dr. Ash Long MD Primary Care Provider Active Start: December 12, 2024 End: December 12, 2024 Dr. Ash Long MD Attending Provider Active Start: December 12, 2024 End: December 12, 2024 Dr. Ash Long MD Referring Provider Active Start: December 12, 2024 End: December 12, 2024 Team Status: Inactive Member Role Status Dates Dr. Ash Long MD Primary Care Provider Active Start: December 17, 2024 End: December 17, 2024 Dr. Ash Long MD Referring Provider Active Start: December 17, 2024 End: December 17, 2024 Spencer FARIAS PA Attending Provider Active Start: December 17, 2024 End: December 17, 2024 Team Status: Active Member Role Status Dates Dr. Ash Long MD Primary Care Provider Active Team Status: Inactive Member Role Status Dates Dr. Ash Long MD Primary Care Provider Active Start: December 26, 2024 End: December 26, 2024 Dr. Ash Long MD Attending Provider Active Start: December 26, 2024 End: December 26, 2024 Dr. Ash Long MD Referring Provider Active Start: December 26, 2024 End: December 26, 2024 Team Status: Active Member Role Status Dates Dr. Ash Long MD Primary Care Provider Active Start: December 26, 2024 Dr. Ash Long MD Referring Provider Active Start: December 26, 2024 Dr. Ash Long MD Other Provider Active Star t: December 26, 2024 Dr. Wilmer Choi MD Attending Provider Active S tart: December 26, 2024 Team Status: Inactive Member Role Status Dates Dr. Ash Long MD Primary Care Provider Active Start: January 07, 2025 End: January 07, 2025 DINORA Acosta Attending Provider Active Sta rt: January 07, 2025 End: January 07, 2025 DINORA Acosta Referring Provider Active Sta rt: January 07, 2025 End: January 07, 2025 Team Status: Inactive Member Role Status Dates Dr. Ash Long MD Primary Care Provider Active Start: February 06, 2025 End: February 06, 2025 DAYANARA HUIZAR Attending Provider Active St art: February 06, 2025 End: February 06, 2025 DAYANARA HUIZAR Referring Provider Active St art: February 06, 2025 End: February 06, 2025 Team Status: Inactive Member Role Status Dates Dr. Ash Long MD Primary Care Provider Active Start: February 25, 2025 End: February 25, 2025 Dr. Ash Long MD Referring Provider Active Start: February 25, 2025 End: February 25, 2025 BERNARDINO Gonzales Attending Provider Active S tart: February 25, 2025 End: February 25, 2025 Team Status: Active Member Role/Relationship Status Dates Dr. Ash Long MD Primary Care Provider Active Team Status: Inactive Member Role/Relationship Status Dates Dr. Ash Long MD Primary Care Provider Active Start: November 07, 2024 End: November 07, 2024 DAYANARA HUIZAR Attending Provider Active St art: November 07, 2024 End: November 07, 2024 DAYANARA HUIZAR Referring Provider Active St art: November 07, 2024 End: November 07, 2024 Team Status: Inactive Member Role/Relationship Status Dates Dr. Ash Long MD Primary Care Provider Active Start: December 12, 2024 End: December 12, 2024 Dr. Ash Long MD Attending Provider Active Start: December 12, 2024 End: December 12, 2024 Dr. Ash Long MD Referring Provider Active Start: December 12, 2024 End: December 12, 2024 Team Status: Inactive Member Role/Relationship Status Dates Dr. Ash Long MD Primary Care Provider Active Start: December 17, 2024 End: December 17, 2024 Dr. Ash Long MD Referring Provider Active Start: December 17, 2024 End: December 17, 2024 DINORA Shelton Attending Provider Active Start: December 17, 2024 End: December 17, 2024 Team Status: Inactive Member Role/Relationship Status Dates Dr. Ash Long MD Primary Care Provider Active Start: December 17, 2024 End: December 17, 2024 Dr. Ash Long MD Referring Provider Active Start: December 17, 2024 End: December 17, 2024 DINORA Shelton Attending Provider Active Start: December 17, 2024 End: December 17, 2024 Team Status: Inactive Member Role/Relationship Status Dates Dr. Ash Long MD Primary Care Provider Active Start: December 26, 2024 End: December 26, 2024 Dr. sAh Long MD Attending Provider Active Start: December 26, 2024 End: December 26, 2024 Dr. Ash Long MD Referring Provider Active Start: December 26, 2024 End: December 26, 2024 Team Status: Active Member Role/Relationship Status Dates Dr. Ash Long MD Primary Care Provider Active Start: December 26, 2024 Dr. Ash Long MD Referring Provider Active Start: December 26, 2024 Dr. Ash Long MD Other Provider Active Star t: December 26, 2024 Dr. Wilmer Choi MD Attending Provider Active S tart: December 26, 2024 Team Status: Inactive Member Role/Relationship Status Dates Dr. Ash Long MD Primary Care Provider Active Start: January 07, 2025 End: January 07, 2025 DINORA Acosta Attending Provider Active Sta rt: January 07, 2025 End: January 07, 2025 DINORA Acosta Referring Provider Active Sta rt: January 07, 2025 End: January 07, 2025 Team Status: Inactive Member Role/Relationship Status Dates Dr. Ash Long MD Primary Care Provider Active Start: February 06, 2025 End: February 06, 2025 DAYANARA HUIZAR Attending Provider Active St art: February 06, 2025 End: February 06, 2025 DAYANARA HUIZAR Referring Provider Active St art: February 06, 2025 End: February 06, 2025 Team Status: Inactive Member Role/Relationship Status Dates Dr. Ash Long MD Primary Care Provider Active Start: February 25, 2025 End: February 25, 2025 Dr. Ash Long MD Referring Provider Active Start: February 25, 2025 End: February 25, 2025 BERNARDINO Gonzales Attending Provider Active S tart: February 25, 2025 End: February 25, 2025 Team Status: Inactive Member Role/Relationship Status Dates Dr. Ahs Long MD Primary Care Provider Active Start: February 28, 2025 End: February 28, 2025 BERNARDINO Gonzales Attending Provider Active S tart: February 28, 2025 End: February 28, 2025 BERNARDINO Gonzales Referring Provider Active S tart: February 28, 2025 End: February 28, 2025 Team Status: Inactive Member Role/Relationship Status Dates Dr. Ash Long MD Primary Care Provider Active Start: December 12, 2024 End: December 12, 2024 Dr. Ash Long MD Attending Provider Active Start: December 12, 2024 End: December 12, 2024 Dr. Ash Long MD Referring Provider Active Start: December 12, 2024 End: December 12, 2024 Team Status: Inactive Member Role/Relationship Status Dates Dr. Ash Long MD Primary Care Provider Active Start: December 17, 2024 End: December 17, 2024 Dr. Ash Long MD Referring Provider Active Start: December 17, 2024 End: December 17, 2024 Spencer FARIAS PA Attending Provider Active Start: December 17, 2024 End: December 17, 2024 Team Status: Inactive Member Role/Relationship Status Dates Dr. Ash Long MD Primary Care Provider Active Start: December 26, 2024 End: December 26, 2024 Dr. Ash Long MD Attending Provider Active Start: December 26, 2024 End: December 26, 2024 Dr. Ash Long MD Referring Provider Active Start: December 26, 2024 End: December 26, 2024 Team Status: Active Member Role/Relationship Status Dates Dr. Ash Long MD Primary Care Provider Active Start: December 26, 2024 Dr. Ash Long MD Referring Provider Active Start: December 26, 2024 Dr. Ash Long MD Other Provider Active Star t: December 26, 2024 Dr. Wilmer Choi MD Attending Provider Active S tart: December 26, 2024 Team Status: Inactive Member Role/Relationship Status Dates Dr. Ash Long MD Primary Care Provider Active Start: January 07, 2025 End: January 07, 2025 Jose FARIAS PA Attending Provider Active Sta rt: January 07, 2025 End: January 07, 2025 Jose FARIAS PA Referring Provider Active Sta rt: January 07, 2025 End: January 07, 2025 Team Status: Inactive Member Role/Relationship Status Dates Dr. Ash Long MD Primary Care Provider Active Start: February 06, 2025 End: February 06, 2025 DAYANARA HUIAZR Attending Provider Active St art: February 06, 2025 End: February 06, 2025 DAYANARA HUIZAR Referring Provider Active St art: February 06, 2025 End: February 06, 2025 Team Status: Inactive Member Role/Relationship Status Dates Dr. Ash Long MD Primary Care Provider Active Start: February 25, 2025 End: February 25, 2025 Dr. Ash Long MD Referring Provider Active Start: February 25, 2025 End: February 25, 2025 BERNARDINO Gonzales Attending Provider Active S tart: February 25, 2025 End: February 25, 2025 Team Status: Inactive Member Role/Relationship Status Dates Dr. Ash Long MD Primary Care Provider Active Start: February 28, 2025 End: February 28, 2025 BERNARDINO Gonzales Attending Provider Active S tart: February 28, 2025 End: February 28, 2025 BERNARDINO Gonzales Referring Provider Active S tart: February 28, 2025 End: February 28, 2025 Team Status: Inactive Member Role/Relationship Status Dates Dr. Ash Long MD Primary Care Provider Active Start: April 08, 2025 End: April 08, 2025 Dr. Ash Long MD Referring Provider Active Start: April 08, 2025 End: April 08, 2025 DINORA Shelton Attending Provider Active Start: April 08, 2025 End: April 08, 2025 Team Status: Active Member Role/Relationship Status Dates Dr. Ash Long MD Primary Care Provider Active Start: April 08, 2025 DINORA Shelton Attending Provider Active Start: April 08, 2025 DINORA Shelton Referring Provider Active Start: April 08, 2025 Team Status: Inactive Member Role/Relationship Status Dates Dr. Ash Long MD Primary Care Provider Active Start: December 17, 2024 End: December 17, 2024 Dr. Ash Long MD Referring Provider Active Start: December 17, 2024 End: December 17, 2024 DINORA Shelton Attending Provider Active Start: December 17, 2024 End: December 17, 2024 Team Status: Inactive Member Role/Relationship Status Dates Dr. Ash Long MD Primary Care Provider Active Start: December 26, 2024 End: December 26, 2024 Dr. Ash Long MD Attending Provider Active Start: December 26, 2024 End: December 26, 2024 Dr. Ash Long MD Referring Provider Active Start: December 26, 2024 End: December 26, 2024 Team Status: Active Member Role/Relationship Status Dates Dr. Ash Long MD Primary Care Provider Active Start: December 26, 2024 Dr. Ash Long MD Referring Provider Active Start: December 26, 2024 Dr. Ash Long MD Other Provider Active Star t: December 26, 2024 Dr. Wilmer Choi MD Attending Provider Active S tart: December 26, 2024 Team Status: Inactive Member Role/Relationship Status Dates Dr. Ash Long MD Primary Care Provider Active Start: January 07, 2025 End: January 07, 2025 DINORA Acosta Attending Provider Active Sta rt: January 07, 2025 End: January 07, 2025 DINORA Acosta Referring Provider Active Sta rt: January 07, 2025 End: January 07, 2025 Team Status: Inactive Member Role/Relationship Status Dates Dr. Ash Long MD Primary Care Provider Active Start: February 06, 2025 End: February 06, 2025 DAYANARA HUIZAR Attending Provider Active St art: February 06, 2025 End: February 06, 2025 DAYANARA HUIZAR Referring Provider Active St art: February 06, 2025 End: February 06, 2025 Team Status: Inactive Member Role/Relationship Status Dates Dr. Ash Long MD Primary Care Provider Active Start: February 25, 2025 End: February 25, 2025 Dr. Ash Long MD Referring Provider Active Start: February 25, 2025 End: February 25, 2025 BERNARDINO Gonzales Attending Provider Active S tart: February 25, 2025 End: February 25, 2025 Team Status: Inactive Member Role/Relationship Status Dates Dr. Ash Long MD Primary Care Provider Active Start: February 28, 2025 End: February 28, 2025 BERNARDINO Gonzales Attending Provider Active S tart: February 28, 2025 End: February 28, 2025 BERNARDINO Gonzales Referring Provider Active S tart: February 28, 2025 End: February 28, 2025 Team Status: Inactive Member Role/Relationship Status Dates Dr. Ash Long MD Primary Care Provider Active Start: April 08, 2025 End: April 08, 2025 Dr. Ash Long MD Referring Provider Active Start: April 08, 2025 End: April 08, 2025 Spencer FARIAS PA Attending Provider Active Start: April 08, 2025 End: April 08, 2025 Team Status: Inactive Member Role/Relationship Status Dates Dr. Ash Long MD Primary Care Provider Active Start: April 08, 2025 End: April 08, 2025 Spencer FARIAS PA Attending Provider Active Start: April 08, 2025 End: April 08, 2025 Spencer FARIAS PA Referring Provider Active Start: April 08, 2025 End: April 08, 2025 Team Status: Active Member Role/Relationship Status Dates Dr. Ash Long MD Primary Care Provider Active Start: April 10, 2025 Dr. Ash Long MD Attending Provider Active Start: April 10, 2025 Dr. Ash Long MD Referring Provider Active Start: April 10, 2025 Team Status: Active Member Role/Relationship Status Dates Dr. Ash Long MD Primary Care Provider Active Start: April 10, 2025 Health Risk Assessment Attending Provider Active Start: April 10, 2025 Health Risk Assessment Referring Provider Active Start: April 10, 2025 Team Status: Inactive Member Role/Relationship Status Dates Dr. Ash Long MD Primary Care Provider Active Start: December 26, 2024 End: December 26, 2024 Dr. Ash Long MD Attending Provider Active Start: December 26, 2024 End: December 26, 2024 Dr. Ash Long MD Referring Provider Active Start: December 26, 2024 End: December 26, 2024 Team Status: Active Member Role/Relationship Status Dates Dr. Ash Long MD Primary Care Provider Active Start: December 26, 2024 Dr. Ash Long MD Referring Provider Active Start: December 26, 2024 Dr. Ash Long MD Other Provider Active Star t: December 26, 2024 Dr. Wilmer Choi MD Attending Provider Active S tart: December 26, 2024 Team Status: Inactive Member Role/Relationship Status Dates Dr. Ash Long MD Primary Care Provider Active Start: January 07, 2025 End: January 07, 2025 DINORA Acosta Attending Provider Active Sta rt: January 07, 2025 End: January 07, 2025 Jose FARIAS PA Referring Provider Active Sta rt: January 07, 2025 End: January 07, 2025 Team Status: Inactive Member Role/Relationship Status Dates Dr. Ash Long MD Primary Care Provider Active Start: February 06, 2025 End: February 06, 2025 DAYANARA HUIZAR Attending Provider Active St art: February 06, 2025 End: February 06, 2025 DAYANARA HUIZAR Referring Provider Active St art: February 06, 2025 End: February 06, 2025 Team Status: Inactive Member Role/Relationship Status Dates Dr. Ash Long MD Primary Care Provider Active Start: February 25, 2025 End: February 25, 2025 Dr. Ash Long MD Referring Provider Active Start: February 25, 2025 End: February 25, 2025 CRUZ GonzalesC Attending Provider Active S tart: February 25, 2025 End: February 25, 2025 Team Status: Inactive Member Role/Relationship Status Dates Dr. Ash Long MD Primary Care Provider Active Start: February 28, 2025 End: February 28, 2025 CRUZ GonzalesC Attending Provider Active S tart: February 28, 2025 End: February 28, 2025 BERNARDINO Gonzales Referring Provider Active S tart: February 28, 2025 End: February 28, 2025 Team Status: Inactive Member Role/Relationship Status Dates Dr. Ash Long MD Primary Care Provider Active Start: April 08, 2025 End: April 08, 2025 Dr. Ash Long MD Referring Provider Active Start: April 08, 2025 End: April 08, 2025 Spencer FARIAS PA Attending Provider Active Start: April 08, 2025 End: April 08, 2025 Team Status: Inactive Member Role/Relationship Status Dates Dr. Ash Long MD Primary Care Provider Active Start: April 08, 2025 End: April 08, 2025 DINORA Shelton Attending Provider Active Start: April 08, 2025 End: April 08, 2025 Spencer FARIAS PA Referring Provider Active Start: April 08, 2025 End: April 08, 2025 Team Status: Inactive Member Role/Relationship Status Dates Dr. Ash Long MD Primary Care Provider Active Start: April 10, 2025 End: April 10, 2025 Dr. Ash Long MD Attending Provider Active Start: April 10, 2025 End: April 10, 2025 Dr. Ash Long MD Referring Provider Active Start: April 10, 2025 End: April 10, 2025 Team Status: Active Member Role/Relationship Status Dates Dr. Ash Long MD Primary Care Provider Active Start: April 10, 2025 Health Risk Assessment Attending Provider Active Start: April 10, 2025 Health Risk Assessment Referring Provider Active Start: April 10, 2025 Team Status: Inactive Member Role/Relationship Status Dates Dr. Ash Long MD Primary Care Provider Active Start: February 06, 2025 End: February 06, 2025 DAYANARA HUIZAR Attending Provider Active St art: February 06, 2025 End: February 06, 2025 DAYANARA HUIZAR Referring Provider Active St art: February 06, 2025 End: February 06, 2025 Team Status: Inactive Member Role/Relationship Status Dates Dr. Ash Long MD Primary Care Provider Active Start: February 25, 2025 End: February 25, 2025 Dr. Ash Long MD Referring Provider Active Start: February 25, 2025 End: February 25, 2025 Daiana Jenkins NP-C Attending Provider Active S tart: February 25, 2025 End: February 25, 2025 Team Status: Inactive Member Role/Relationship Status Dates Dr. Ash Long MD Primary Care Provider Active Start: February 28, 2025 End: February 28, 2025 Daiana Jenkins NP-C Attending Provider Active S tart: February 28, 2025 End: February 28, 2025 Daiana Jenkins NP-C Referring Provider Active S tart: February 28, 2025 End: February 28, 2025 Team Status: Inactive Member Role/Relationship Status Dates Dr. Ash Long MD Primary Care Provider Active Start: April 08, 2025 End: April 08, 2025 Dr. Ash Long MD Referring Provider Active Start: April 08, 2025 End: April 08, 2025 DINORA Shelton Attending Provider Active Start: April 08, 2025 End: April 08, 2025 Team Status: Inactive Member Role/Relationship Status Dates Dr. Ash Long MD Primary Care Provider Active Start: April 08, 2025 End: April 08, 2025 DINORA Shelton Attending Provider Active Start: April 08, 2025 End: April 08, 2025 DINORA Shelton Referring Provider Active Start: April 08, 2025 End: April 08, 2025 Team Status: Inactive Member Role/Relationship Status Dates Dr. Ash Long MD Primary Care Provider Active Start: April 10, 2025 End: April 10, 2025 Dr. Ash Long MD Attending Provider Active Start: April 10, 2025 End: April 10, 2025 Dr. Ash Long MD Referring Provider Active Start: April 10, 2025 End: April 10, 2025 Team Status: Active Member Role/Relationship Status Dates Dr. Ash Long MD Primary Care Provider Active Start: April 10, 2025 Health Risk Assessment Attending Provider Active Start: April 10, 2025 Health Risk Assessment Referring Provider Active Start: April 10, 2025 Team Status: Inactive Member Role/Relationship Status Dates Dr. Ash Long MD Primary Care Provider Active Start: May 07, 2025 End: May 07, 2025 DAYANARA HUIZAR Attending Provider Active St art: May 07, 2025 End: May 07, 2025 DAYANARA HUIZAR Referring Provider Active St art: May 07, 2025 End: May 07, 2025 Team Status: Active Member Role/Relationship Status Dates Dr. Ash Long MD Primary care physician Active Team Status: Inactive Member Role/Relationship Status Dates Dr. Ash Long MD Primary care physician Active Start: February 06, 2025 End: February 06, 2025 DAYANARA HUIZAR Attending physician Active S tart: February 06, 2025 End: February 06, 2025 DAYANARA HUIZAR Referring Provider Active St art: February 06, 2025 End: February 06, 2025 Team Status: Inactive Member Role/Relationship Status Dates Dr. Ash Long MD Primary care physician Active Start: February 25, 2025 End: February 25, 2025 Dr. Ash Long MD Referring Provider Active Start: February 25, 2025 End: February 25, 2025 BERNARDINO Gonzales Attending physician Active Start: February 25, 2025 End: February 25, 2025 Team Status: Inactive Member Role/Relationship Status Dates Dr. Ash Long MD Primary care physician Active Start: February 28, 2025 End: February 28, 2025 BERNARDINO Gonzales Attending physician Active Start: February 28, 2025 End: February 28, 2025 BERNARDINO Gonzales Referring Provider Active S tart: February 28, 2025 End: February 28, 2025 Team Status: Inactive Member Role/Relationship Status Dates Dr. Ash Long MD Primary care physician Active Start: April 08, 2025 End: April 08, 2025 Dr. Ash Long MD Referring Provider Active Start: April 08, 2025 End: April 08, 2025 DINORA Shelton Attending physician Active Start: April 08, 2025 End: April 08, 2025 Team Status: Inactive Member Role/Relationship Status Dates Dr. Ash Long MD Primary care physician Active Start: April 08, 2025 End: April 08, 2025 DINORA Shelton Attending physician Active Start: April 08, 2025 End: April 08, 2025 DINOAR Shelton Referring Provider Active Start: April 08, 2025 End: April 08, 2025 Team Status: Inactive Member Role/Relationship Status Dates Dr. Ash Long MD Primary care physician Active Start: April 10, 2025 End: April 10, 2025 Dr. Ash Long MD Attending physician Active Start: April 10, 2025 End: April 10, 2025 Dr. Ash Long MD Referring Provider Active Start: April 10, 2025 End: April 10, 2025 Team Status: Active Member Role/Relationship Status Dates Dr. Ash Long MD Primary care physician Active Start: April 10, 2025 Health Risk Assessment Attending physician Active Start: April 10, 2025 Health Risk Assessment Referring Provider Active Start: April 10, 2025 Team Status: Inactive Member Role/Relationship Status Dates Dr. Ash Long MD Primary care physician Active Start: May 07, 2025 End: May 07, 2025 DAYANARA HUIZAR Attending physician Active S tart: May 07, 2025 End: May 07, 2025 DAYANARA HUIZAR Referring Provider Active St art: May 07, 2025 End: May 07, 2025 Team Status: Inactive Member Role/Relationship Status Dates Dr. Ash Long MD Primary care physician Active Start: June 03, 2025 End: June 03, 2025 Dr. Ash Long MD Referring Provider Active Start: June 03, 2025 End: June 03, 2025 Dr. Dk Caruso MD Attending physician Active Start: June 03, 2025 End: June 03, 2025 (unrecognized sect ion and content) No Status Records Found INFORMATION SOURCE (unrecogn ized section and content) DATE CREATED AUTHOR 06/09/2025 [facility] FOR RECORDS PERTAINING TO PATIENTS WHO [...] BE BASED ON THE PRIMARY CLINICAL RECORDS. [employer] [facility]. provides no warranty or guarantee of the accuracy or completeness of information in this document.
[2025-08-13 07:18] LABS: Hematocrit 49.7 % (40-54); Hemoglobin 16.7 g/dL (13.0-16.5); Immature Granulocytes Count 0.050 X10^3/uL (0.0-0.0); Mean Corp Hgb Conc 33.6 g/dL (32-36); Mean Corpuscular Volume 91.0 fL (80-94); Mean Platelet Vol. 9.3 fl (6.2-12.0); NRBC Flagged by Analyzer 0 % (0-5); Platelet Count 352 K/mm3 (150-450); RBC Distribution Width CV 13.0 % (11.6-14.6); RBC Distribution Width SD 43.3 fl (35.1-43.9); Red Blood Count 5.46 M/mm3 (4.6-6.2); White Blood Count 6.7 K/mm3 (4.4-11.0)
[2025-08-13 08:20] LABS: CRP 3.26 mg/L (0.0-3.0)
[2025-08-13 08:25] LABS: AST(SGOT) 22 U/L (<=37); Alanine Aminotransfer ALT/SGPT 18 U/L (<=46); Albumin, Serum 4.1 g/dL (3.4-4.8); Alkaline Phosphatase 93 U/L (40-129); Bilirubin, Direct 0.18 mg/dL (0.00-0.30); Globulin 2.8 g/dL (2.2-4.2)
== END | disposition home or self-care (01) ==
LOC: LAB 06:26
PROVIDERS: PCP Family Medicine; Referring Provider Internal Medicine Rheumatology; Visit Provider Internal Medicine Rheumatology
DX: L40.50 Arthropathic psoriasis, unspecified (principal); Z79.899 Other long term (current) drug therapy
CPT/HCPCS: 36415; 80076; 82565; 85025; 85652; 86140